=== PATIENT | male | born 1975 | race American Indian/Alaskan Native ===

== ENCOUNTER 2018-04-17 14:28 | Inpatient (IN) | payer OTHER ==
--- NOTE | 2018-04-17 14:39 | Emergency Department Report ---
ED Chest Pain HPI - General Chief Complaint: Chest Pain Stated Complaint: CHEST PAIN Time Seen by Provider: 04/17/18 14:34 Source: patient, EMS Mode of arrival: Stretcher Limitations: No Limitations - History of Present Illness Initial Comments: Mr yadav is a 42 year-old man with hx of CHF, HTN, IDDM who presents with chest pain. onset last night while at rest on the couch around midnight. Left chest, no radiation. No dyspnea. No relieving factors. Worse with breathing. Bilateral leg pain. chronic back pain. no cough. no fever. MD Complaint: chest pain -: Sudden Time: 00:00 Onset: during rest Pain Location: left chest Pain Radiation: none Severity: severe Quality: tightness, aching Consistency: constant Improves With: nothing Worsens With: inspiration Treatments Prior to Arrival: aspirin, nitroglycerin Aspirin use within the Past 7 Days: (1) Yes - Related Data Allergies Allergy/AdvReac Type Severity Reaction Status Date / Time No Known Allergies Allergy Unverified 04/17/18 14:43 Heart Score - HEART Score History: Moderately suspicious EKG: Non-specific Age: < 45 Risk factors: 1-2 risk factors Troponin: < normal limit HEART Score: 3 ED Review of Systems ROS: Stated complaint: CHEST PAIN Other details as noted in HPI Comment: All other systems reviewed and negative ED Physical Exam - General General appearance: alert, in no apparent distress - Head Head exam: Present: atraumatic, normocephalic - Eye Eye exam: Present: normal appearance, PERRL, EOMI - ENT ENT exam: Present: normal exam, mucous membranes moist - Neck Neck exam: Present: normal inspection - Respiratory Respiratory exam: Present: normal lung sounds bilaterally. Absent: respiratory distress, wheezes, rales, rhonchi - Cardiovascular Cardiovascular Exam: Present: regular rate, normal rhythm. Absent: systolic murmur, diastolic murmur, rubs, gallop - GI/Abdominal GI/Abdominal exam: Present: soft. Absent: distended, tenderness, guarding - Rectal Rectal exam: Present: deferred - Extremities Exam Extremities exam: Present: normal inspection. Absent: full ROM, tenderness - Back Exam Back exam: Present: normal inspection. Absent: tenderness, CVA tenderness (R), CVA tenderness (L) - Neurological Exam Neurological exam: Present: alert, oriented X3 - Psychiatric Psychiatric exam: Present: normal affect, normal mood - Skin Skin exam: Present: warm, dry, intact, normal color. Absent: rash ED Course Vital Signs 04/17/18 14:33 Temperature 98.3 F Pulse Rate 90 Blood Pressure 169/107 O2 Sat by Pulse 98 Oximetry ED Medical Decision Making - Lab Data Result diagrams: 04/17/18 14:43 04/17/18 16:27 Lab Results 04/17/18 04/17/18 04/17/18 Range/Units 14:37 14:43 14:43 WBC 7.9 (4.5-11.0) K/mm3 RBC 5.70 H (3.65-5.03) M/mm3 Hgb 14.9 (11.8-15.2) gm/dl Hct 46.6 H (35.5-45.6) % MCV 82 L (84-94) fl MCH 26 L (28-32) pg MCHC 32 (32-34) % RDW 13.6 (13.2-15.2) % Plt Count 164 (140-440) K/mm3 Lymph % (Auto) 13.8 (13.4-35.0) % Moody % (Auto) 4.3 (0.0-7.3) % Eos % (Auto) 0.9 (0.0-4.3) % Baso % (Auto) 0.8 (0.0-1.8) % Lymph # 1.1 L (1.2-5.4) K/mm3 Moody # 0.3 (0.0-0.8) K/mm3 Eos # 0.1 (0.0-0.4) K/mm3 Baso # 0.1 (0.0-0.1) K/mm3 Seg Neutrophils % 80.2 H (40.0-70.0) % Seg Neutrophils # 6.3 (1.8-7.7) K/mm3 PT 11.7 L (12.2-14.9) Sec. INR 0.82 L (0.87-1.13) D-Dimer 185.93 (0-234) ng/mlDDU Sodium (137-145) mmol/L Potassium (3.6-5.0) mmol/L Chloride (98-107) mmol/L Carbon Dioxide (22-30) mmol/L Anion Gap mmol/L BUN (9-20) mg/dL Creatinine (0.8-1.5) mg/dL Estimated GFR ml/min BUN/Creatinine Ratio % Glucose (75-100) mg/dL POC Glucose > 500 H (70-105) Ketones Quantitative (Negative) Calcium (8.4-10.2) mg/dL Total Bilirubin (0.1-1.2) mg/dL AST (5-40) units/L ALT (7-56) units/L Alkaline Phosphatase (35-129) units/L Troponin T (0.00-0.029) ng/mL NT-Pro-B Natriuret Pep (0-450) pg/mL Total Protein (6.3-8.2) g/dL Albumin (3.9-5) g/dL Albumin/Globulin Ratio % Triglycerides (2-149) mg/dL Cholesterol (50-199) mg/dL LDL Cholesterol Direct HDL Cholesterol (40-59) mg/dL Cholesterol/HDL Ratio % Urine Color (Yellow) Urine Turbidity (Clear) Urine pH (5.0-7.0) Ur Specific [place] (1.003-1.030) Urine Protein (Negative) mg/dL Urine Glucose (UA) (Negative) mg/dL Urine Ketones (Negative) mg/dL Urine Blood (Negative) Urine Nitrite (Negative) Urine Bilirubin (Negative) Urine Urobilinogen (<2.0) mg/dL Ur Leukocyte Esterase (Negative) Urine WBC (Auto) (0.0-6.0) /HPF Urine RBC (Auto) (0.0-6.0) /HPF Urine Opiates Screen Urine Methadone Screen Ur Barbiturates Screen Ur Phencyclidine Scrn Ur Amphetamines Screen U Benzodiazepines Scrn Urine Cocaine Screen U Marijuana (THC) Screen Drugs of Abuse Note 04/17/18 04/17/18 04/17/18 Range/Units 14:43 14:43 14:43 WBC (4.5-11.0) K/mm3 RBC (3.65-5.03) M/mm3 Hgb (11.8-15.2) gm/dl Hct (35.5-45.6) % MCV (84-94) fl MCH (28-32) pg MCHC (32-34) % RDW (13.2-15.2) % Plt Count (140-440) K/mm3 Lymph % (Auto) (13.4-35.0) % Moody % (Auto) (0.0-7.3) % Eos % (Auto) (0.0-4.3) % Baso % (Auto) (0.0-1.8) % Lymph # (1.2-5.4) K/mm3 Moody # (0.0-0.8) K/mm3 Eos # (0.0-0.4) K/mm3 Baso # (0.0-0.1) K/mm3 Seg Neutrophils % (40.0-70.0) % Seg Neutrophils # (1.8-7.7) K/mm3 PT (12.2-14.9) Sec. INR (0.87-1.13) D-Dimer (0-234) ng/mlDDU Sodium 122 L (137-145) mmol/L Potassium 5.2 H (3.6-5.0) mmol/L Chloride 83.5 L (98-107) mmol/L Carbon Dioxide 20 L (22-30) mmol/L Anion Gap 24 mmol/L BUN 37 H (9-20) mg/dL Creatinine 1.9 H (0.8-1.5) mg/dL Estimated GFR 39 ml/min BUN/Creatinine Ratio 19 % Glucose 801 H* (75-100) mg/dL POC Glucose (70-105) Ketones Quantitative Negative (Negative) Calcium 9.3 (8.4-10.2) mg/dL Total Bilirubin 0.40 (0.1-1.2) mg/dL AST 11 (5-40) units/L ALT 12 (7-56) units/L Alkaline Phosphatase 153 H (35-129) units/L Troponin T 0.036 H (0.00-0.029) ng/mL NT-Pro-B Natriuret Pep 269.0 (0-450) pg/mL Total Protein 6.9 (6.3-8.2) g/dL Albumin 3.6 L (3.9-5) g/dL Albumin/Globulin Ratio 1.1 % Triglycerides 503 H (2-149) mg/dL Cholesterol 264 H (50-199) mg/dL LDL Cholesterol Direct TNR HDL Cholesterol 54 (40-59) mg/dL Cholesterol/HDL Ratio 4.88 % Urine Color (Yellow) Urine Turbidity (Clear) Urine pH (5.0-7.0) Ur Specific [place] (1.003-1.030) Urine Protein (Negative) mg/dL Urine Glucose (UA) (Negative) mg/dL Urine Ketones (Negative) mg/dL Urine Blood (Negative) Urine Nitrite (Negative) Urine Bilirubin (Negative) Urine Urobilinogen (<2.0) mg/dL Ur Leukocyte Esterase (Negative) Urine WBC (Auto) (0.0-6.0) /HPF Urine RBC (Auto) (0.0-6.0) /HPF Urine Opiates Screen Urine Methadone Screen Ur Barbiturates Screen Ur Phencyclidine Scrn Ur Amphetamines Screen U Benzodiazepines Scrn Urine Cocaine Screen U Marijuana (THC) Screen Drugs of Abuse Note 04/17/18 04/17/18 04/17/18 Range/Units 15:10 15:10 16:27 WBC (4.5-11.0) K/mm3 RBC (3.65-5.03) M/mm3 Hgb (11.8-15.2) gm/dl Hct (35.5-45.6) % MCV (84-94) fl MCH (28-32) pg MCHC (32-34) % RDW (13.2-15.2) % Plt Count (140-440) K/mm3 Lymph % (Auto) (13.4-35.0) % Moody % (Auto) (0.0-7.3) % Eos % (Auto) (0.0-4.3) % Baso % (Auto) (0.0-1.8) % Lymph # (1.2-5.4) K/mm3 Moody # (0.0-0.8) K/mm3 Eos # (0.0-0.4) K/mm3 Baso # (0.0-0.1) K/mm3 Seg Neutrophils % (40.0-70.0) % Seg Neutrophils # (1.8-7.7) K/mm3 PT (12.2-14.9) Sec. INR (0.87-1.13) D-Dimer (0-234) ng/mlDDU Sodium (137-145) mmol/L Potassium (3.6-5.0) mmol/L Chloride (98-107) mmol/L Carbon Dioxide (22-30) mmol/L Anion Gap mmol/L BUN (9-20) mg/dL Creatinine (0.8-1.5) mg/dL Estimated GFR ml/min BUN/Creatinine Ratio % Glucose (75-100) mg/dL POC Glucose (70-105) Ketones Quantitative (Negative) Calcium (8.4-10.2) mg/dL Total Bilirubin (0.1-1.2) mg/dL AST (5-40) units/L ALT (7-56) units/L Alkaline Phosphatase (35-129) units/L Troponin T 0.035 H (0.00-0.029) ng/mL NT-Pro-B Natriuret Pep (0-450) pg/mL Total Protein (6.3-8.2) g/dL Albumin (3.9-5) g/dL Albumin/Globulin Ratio % Triglycerides (2-149) mg/dL Cholesterol (50-199) mg/dL LDL Cholesterol Direct HDL Cholesterol (40-59) mg/dL Cholesterol/HDL Ratio % Urine Color Straw (Yellow) Urine Turbidity Clear (Clear) Urine pH 6.0 (5.0-7.0) Ur Specific [place] 1.023 (1.003-1.030) Urine Protein 100 mg/dl (Negative) mg/dL Urine Glucose (UA) >=500 (Negative) mg/dL Urine Ketones Tr (Negative) mg/dL Urine Blood Neg (Negative) Urine Nitrite Neg (Negative) Urine Bilirubin Neg (Negative) Urine Urobilinogen < 2.0 (<2.0) mg/dL Ur Leukocyte Esterase Neg (Negative) Urine WBC (Auto) < 1.0 (0.0-6.0) /HPF Urine RBC (Auto) 3.0 (0.0-6.0) /HPF Urine Opiates Screen Presumptive negative Urine Methadone Screen Presumptive negative Ur Barbiturates Screen Presumptive negative Ur Phencyclidine Scrn Presumptive negative Ur Amphetamines Screen Presumptive negative U Benzodiazepines Scrn Presumptive negative Urine Cocaine Screen Presumptive negative U Marijuana (THC) Screen Presumptive negative Drugs of Abuse Note Disclamer 04/17/18 Range/Units 16:27 WBC (4.5-11.0) K/mm3 RBC (3.65-5.03) M/mm3 Hgb (11.8-15.2) gm/dl Hct (35.5-45.6) % MCV (84-94) fl MCH (28-32) pg MCHC (32-34) % RDW (13.2-15.2) % Plt Count (140-440) K/mm3 Lymph % (Auto) (13.4-35.0) % Moody % (Auto) (0.0-7.3) % Eos % (Auto) (0.0-4.3) % Baso % (Auto) (0.0-1.8) % Lymph # (1.2-5.4) K/mm3 Moody # (0.0-0.8) K/mm3 Eos # (0.0-0.4) K/mm3 Baso # (0.0-0.1) K/mm3 Seg Neutrophils % (40.0-70.0) % Seg Neutrophils # (1.8-7.7) K/mm3 PT (12.2-14.9) Sec. INR (0.87-1.13) D-Dimer (0-234) ng/mlDDU Sodium 126 L (137-145) mmol/L Potassium 5.0 (3.6-5.0) mmol/L Chloride 86.9 L (98-107) mmol/L Carbon Dioxide 20 L (22-30) mmol/L Anion Gap 24 mmol/L BUN 38 H (9-20) mg/dL Creatinine 1.9 H (0.8-1.5) mg/dL Estimated GFR 47 ml/min BUN/Creatinine Ratio 20 % Glucose 736 H* (75-100) mg/dL POC Glucose (70-105) Ketones Quantitative (Negative) Calcium 9.2 (8.4-10.2) mg/dL Total Bilirubin (0.1-1.2) mg/dL AST (5-40) units/L ALT (7-56) units/L Alkaline Phosphatase (35-129) units/L Troponin T (0.00-0.029) ng/mL NT-Pro-B Natriuret Pep (0-450) pg/mL Total Protein (6.3-8.2) g/dL Albumin (3.9-5) g/dL Albumin/Globulin Ratio % Triglycerides (2-149) mg/dL Cholesterol (50-199) mg/dL LDL Cholesterol Direct HDL Cholesterol (40-59) mg/dL Cholesterol/HDL Ratio % Urine Color (Yellow) Urine Turbidity (Clear) Urine pH (5.0-7.0) Ur Specific [place] (1.003-1.030) Urine Protein (Negative) mg/dL Urine Glucose (UA) (Negative) mg/dL Urine Ketones (Negative) mg/dL Urine Blood (Negative) Urine Nitrite (Negative) Urine Bilirubin (Negative) Urine Urobilinogen (<2.0) mg/dL Ur Leukocyte Esterase (Negative) Urine WBC (Auto) (0.0-6.0) /HPF Urine RBC (Auto) (0.0-6.0) /HPF Urine Opiates Screen Urine Methadone Screen Ur Barbiturates Screen Ur Phencyclidine Scrn Ur Amphetamines Screen U Benzodiazepines Scrn Urine Cocaine Screen U Marijuana (THC) Screen Drugs of Abuse Note - EKG Data 04/17/18 14:32 HR 94, sinus, normal axis, intervals wnl, deep Q waves in V1-V3, no ST changes concerning for acute ischemia - Radiology Data Radiology results: report reviewed, image reviewed HISTORY: Chest pain. COMPARISON: No prior studies are available for comparison. FINDINGS: Heart: Normal. Mediastinum/Vessels: Normal. Lungs/Pleural space: Normal. Bony thorax: No acute osseous abnormality. Other: IMPRESSION: No radiographic evidence of acute cardiopulmonary disease. - Medical Decision Making mr yadav is a 42 year-old man with hx of HTN, DM who presents via EMs with chest pain. left sided chest pain, no radiation since last night around 1230am. Not exertinoal. Pleuritic. Exam without reproducible chest pain. No back pain. Reports his blood sugar was normal at last check. POC glucose > 500. Suspect this is msk pain vs ACS vs PE vs PNA vs PTX vs HHS vs hyperglycemia vs DKA. Trop 0.03. EKG non-ischemic. CXR clear. Glucose 900 with mild acidosis, no ketosis. Giving 10u subq insulin and IVF. CBC wnl. Lytes with K 5.2, repeat normal. Repeat trop unchanged. Had asa with EMS. Had nitro x 2 without any response. Admit to medicine for hyperglycemia. Repeat 800. Critical care attestation.: If time is entered above; I have spent that time in minutes in the direct care of this critically ill patient, excluding procedure time. ED Disposition Clinical Impression: Hyperglycemia Chest pain Qualifiers: Chest pain type: unspecified Qualified Code(s): R07.9 - Chest pain, unspecified Disposition: 09 OP ADMIT IP TO THIS HOSP Is pt being admited?: Yes Does the pt Need Aspirin: No Condition: Stable Instructions: Chest Pain (ED) Referrals: PRIMARY CARE,MD [Primary Care Provider] - 3-5 Days
[2018-04-17 15:00] LABS: Basophils # (Auto) 0.1 K/mm3 (0.0-0.1); Basophils % (Auto) 0.8 % (0.0-1.8); Eosinophils # (Auto) 0.1 K/mm3 (0.0-0.4); Eosinophils % (Auto) 0.9 % (0.0-4.3); Hematocrit 46.6 % (35.5-45.6); Hemoglobin 14.9 gm/dl (11.8-15.2); Lymphocytes # (Auto) 1.1 K/mm3 (1.2-5.4); Lymphocytes % (Auto) 13.8 % (13.4-35.0); Mean Corpuscular HGB Conc 32 % (32-34); Mean Corpuscular Hemoglobin 26 pg (28-32); Mean Corpuscular Volume 82 fl (84-94); Monocytes # (Auto) 0.3 K/mm3 (0.0-0.8); Monocytes % (Auto) 4.3 % (0.0-7.3); Platelet Count 164 K/mm3 (140-440); Red Cell Distribution Width 13.6 % (13.2-15.2)
[2018-04-17 15:05] LABS: INR 0.82 (0.87-1.13)
[2018-04-17 15:11] LABS: Alanine Aminotransferase 12 units/L (7-56); Albumin 3.6 g/dL (3.9-5); BUN/Creatinine Ratio 19; Blood Urea Nitrogen 37 mg/dL (9-20); Calcium 9.3 mg/dL (8.4-10.2); Hemolysis Index 7
[2018-04-17] MEDS ORDERED: NACL 0.9% 1000 ML 1,000 ML IV ONE (15:15)
[2018-04-17] MEDS ORDERED: HumuLIN R SUB-Q ONE (15:15)
[2018-04-17 15:23] LABS: Chol/HDL Ratio 4.88 %; HDL Cholesterol 54 mg/dL (40-59); LDL Cholesterol,Direct TNR mg/dL (50-130)
[2018-04-17 15:42] LABS: Bilirubin,Urine NEG (Negative); Blood,Urine NEG (Negative); Color,Urine Straw (Yellow); Urobilinogen,Urine < 2.0 mg/dL (<2.0)
[2018-04-17 15:45] LABS: Amphetamine Screen,Urine PRESUMPTIVE NEGATIVE; Benzodiazepines Screen,Urine PRESUMPTIVE NEGATIVE; Cannabinoid Screen,Urine PRESUMPTIVE NEGATIVE; Cocaine Screen,Urine PRESUMPTIVE NEGATIVE; Methadone Screen,Urine PRESUMPTIVE NEGATIVE; Opiate Screen,Urine PRESUMPTIVE NEGATIVE
[2018-04-17 15:53] LABS: WBC,Urine < 1.0 /HPF (0.0-6.0)
--- NOTE | 2018-04-17 16:16 | XRay Report ---
FINAL REPORT PROCEDURE: XR CHEST ROUTINE 2V TECHNIQUE: PA and lateral chest radiographs were obtained. CPT 18864 HISTORY: Chest pain. COMPARISON: No prior studies are available for comparison. FINDINGS: Heart: Normal. Mediastinum/Vessels: Normal. Lungs/Pleural space: Normal. Bony thorax: No acute osseous abnormality. Other: IMPRESSION: No radiographic evidence of acute cardiopulmonary disease.
[2018-04-17 17:05] LABS: Calcium 9.2 mg/dL (8.4-10.2)
[2018-04-17] MEDS ORDERED: MORPHINE ONE (17:34)
[2018-04-17] MEDS ORDERED: MORPHINE IM ONE (17:40)
[2018-04-17] MEDS ORDERED: SODIUM CHLORIDE FLUSH SYRINGE 10 ML IV PRN (20:46)
[2018-04-17] MEDS ORDERED: ZOFRAN IV PRN (20:46)
--- NOTE | 2018-04-17 20:46 | History and Physical Report ---
History of Present Illness Date of examination: 04/17/18 Date of admission: 04/17/18 Chief complaint: CC Chest pain since Last night. History of present illness: History of Present Illness: 42 year-old Black male with hx of CHF, HTN and IDDM presents with chest pain. onset last night while at rest on the couch around midnight.No radiation.Dull in character.Intermittent in nature.Noexacerbating or relieving factors.No Sob or Diaphoresis or palpitations. Patient has not been taking Insulin regularly bcoz of financial reasons and lack of Insurance. IN ED his BG was in 800's.No Nausea or vomiting.Feels weak.Has polyuria polydipsia and polyphagia. No fever or chills Past History Past Medical History: diabetes, heart failure, hypertension Past Surgical History: No surgical history Social history: lives with family, full code Family history: diabetes, hypertension Medications and Allergies Allergies Allergy/AdvReac Type Severity Reaction Status Date / Time No Known Allergies Allergy Unverified 04/17/18 14:43 Home Medications Medication Instructions Recorded Confirmed Last Taken Type Insulin NPH/Regular [Novolin 70/30] 40 unit SUB-Q TID 04/17/18 04/17/18 Unknown History cloNIDine [Catapres] 0.2 mg PO BID 04/17/18 04/17/18 Unknown History metFORMIN [Glucophage] 500 mg PO BID 04/17/18 04/17/18 Unknown History Review of Systems All systems: negative Constitutional: no weight loss, no weight gain, no fever, no chills Ears, nose, mouth and throat: no mouth pain, no dysphagia, no hoarseness, no sore throat Cardiovascular: chest pain, no orthopnea, no palpitations, no rapid/irregular heart beat, no edema, no syncope, no lightheadedness, no shortness of breath Respiratory: no cough, no cough with sputum, no excessive sputum, no hemoptysis , no shortness of breath, no dyspnea on exertion Gastrointestinal: no abdominal pain, no nausea, no vomiting, no diarrhea, no constipation, no change in bowel habits, no hematemesis, no coffee ground emesis Genitourinary Male: no dysuria, no urinary frequency, no urinary hesitancy, no nocturia Rectal: no pain Musculoskeletal: no neck stiffness, no shooting arm pain, no arm numbness/ tingling, no low back pain Integumentary: no rash, no pruritis, no redness, no sores Neurological: no head injury, no transient paralysis, no paralysis, no weakness , no seizures, no syncope Psychiatric: no anxiety, no memory loss, no change in sleep habits, no sleep disturbances, no insomnia, no hypersomnia, no change in appetite, no change in libido Endocrine: no cold intolerance, no heat intolerance, no polyphagia, no excessive thirst, no polydipsia, no polyuria Hematologic/Lymphatic: no easy bruising, no easy bleeding Allergic/Immunologic: no urticaria, no allergic rhinitis, no wheezing Exam - Constitutional Vitals: Temp Pulse Resp BP Pulse Ox 98.4 F 90 20 177/114 98 04/17/18 19:15 04/17/18 19:15 04/17/18 19:15 04/17/18 19:15 04/17/18 19:15 General appearance: Present: no acute distress, well-nourished - EENT Eyes: Present: PERRL ENT: hearing intact, clear oral mucosa - Neck Neck: Present: supple, normal ROM - Respiratory Respiratory effort: normal Respiratory: bilateral: CTA - Cardiovascular Heart rate: 80 Rhythm: regular Heart Sounds: Present: S1 & S2. Absent: rub, click - Extremities Extremities: pulses symmetrical, No edema Peripheral Pulses: within normal limits - Abdominal General gastrointestinal: Present: soft, non-tender, non-distended, normal bowel sounds Male genitourinary: Present: normal - Rectal Rectal Exam: deferred - Integumentary Integumentary: Present: clear, warm, dry - Musculoskeletal Musculoskeletal: gait normal, strength equal bilaterally - Psychiatric Psychiatric: appropriate mood/affect, intact judgment & insight - Neurologic Neurologic: CNII-XII intact, moves all extremities - Allied Health Allied health notes reviewed: nursing, case management Results - Labs CBC & Chem 7: 04/17/18 14:43 04/18/18 04:46 Labs: Laboratory Last Values WBC 7.9 K/mm3 (4.5-11.0) 04/17/18 14:43 RBC 5.70 M/mm3 (3.65-5.03) H 04/17/18 14:43 Hgb 14.9 gm/dl (11.8-15.2) 04/17/18 14:43 Hct 46.6 % (35.5-45.6) H 04/17/18 14:43 MCV 82 fl (84-94) L 04/17/18 14:43 MCH 26 pg (28-32) L 04/17/18 14:43 MCHC 32 % (32-34) 04/17/18 14:43 RDW 13.6 % (13.2-15.2) 04/17/18 14:43 Plt Count 164 K/mm3 (140-440) 04/17/18 14:43 Lymph % (Auto) 13.8 % (13.4-35.0) 04/17/18 14:43 [place] % (Auto) 4.3 % (0.0-7.3) 04/17/18 14:43 Eos % (Auto) 0.9 % (0.0-4.3) 04/17/18 14:43 Baso % (Auto) 0.8 % (0.0-1.8) 04/17/18 14:43 Lymph # 1.1 K/mm3 (1.2-5.4) L 04/17/18 14:43 Brooks # 0.3 K/mm3 (0.0-0.8) 04/17/18 14:43 Eos # 0.1 K/mm3 (0.0-0.4) 04/17/18 14:43 Baso # 0.1 K/mm3 (0.0-0.1) 04/17/18 14:43 Seg Neutrophils % 80.2 % (40.0-70.0) H 04/17/18 14:43 Seg Neutrophils # 6.3 K/mm3 (1.8-7.7) 04/17/18 14:43 PT 11.7 Sec. (12.2-14.9) L 04/17/18 14:43 INR 0.82 (0.87-1.13) L 04/17/18 14:43 D-Dimer 185.93 ng/mlDDU (0-234) 04/17/18 14:43 Sodium 126 mmol/L (137-145) L 04/17/18 16:27 Potassium 5.0 mmol/L (3.6-5.0) 04/17/18 16:27 Chloride 86.9 mmol/L (98-107) L 04/17/18 16:27 Carbon Dioxide 20 mmol/L (22-30) L 04/17/18 16:27 Anion Gap 24 mmol/L 04/17/18 16:27 BUN 38 mg/dL (9-20) H 04/17/18 16:27 Creatinine 1.9 mg/dL (0.8-1.5) H 04/17/18 16:27 Estimated GFR 47 ml/min 04/17/18 16:27 BUN/Creatinine Ratio 20 % 04/17/18 16:27 Glucose 736 mg/dL (75-100) H* 04/17/18 16:27 POC Glucose > 500 (70-105) H 04/17/18 14:37 Ketones Quantitative Negative (Negative) 04/17/18 14:43 Calcium 9.2 mg/dL (8.4-10.2) 04/17/18 16:27 Total Bilirubin 0.40 mg/dL (0.1-1.2) 04/17/18 14:43 AST 11 units/L (5-40) 04/17/18 14:43 ALT 12 units/L (7-56) 04/17/18 14:43 Alkaline Phosphatase 153 units/L (35-129) H 04/17/18 14:43 Troponin T 0.035 ng/mL (0.00-0.029) H 04/17/18 16:27 NT-Pro-B Natriuret Pep 269.0 pg/mL (0-450) 04/17/18 14:43 Total Protein 6.9 g/dL (6.3-8.2) 04/17/18 14:43 Albumin 3.6 g/dL (3.9-5) L 04/17/18 14:43 Albumin/Globulin Ratio 1.1 % 04/17/18 14:43 Triglycerides 503 mg/dL (2-149) H 04/17/18 14:43 Cholesterol 264 mg/dL (50-199) H 04/17/18 14:43 LDL Cholesterol Direct TNR 04/17/18 14:43 HDL Cholesterol 54 mg/dL (40-59) 04/17/18 14:43 Cholesterol/HDL Ratio 4.88 % 04/17/18 14:43 Urine Color Straw (Yellow) 04/17/18 15:10 Urine Turbidity Clear (Clear) 04/17/18 15:10 Urine pH 6.0 (5.0-7.0) 04/17/18 15:10 Ur Specific [place] 1.023 (1.003-1.030) 04/17/18 15:10 Urine Protein 100 mg/dl mg/dL (Negative) 04/17/18 15:10 Urine Glucose (UA) >=500 mg/dL (Negative) 04/17/18 15:10 Urine Ketones Tr mg/dL (Negative) 04/17/18 15:10 Urine Blood Neg (Negative) 04/17/18 15:10 Urine Nitrite Neg (Negative) 04/17/18 15:10 Urine Bilirubin Neg (Negative) 04/17/18 15:10 Urine Urobilinogen < 2.0 mg/dL (<2.0) 04/17/18 15:10 Ur Leukocyte Esterase Neg (Negative) 04/17/18 15:10 Urine WBC (Auto) < 1.0 /HPF (0.0-6.0) 04/17/18 15:10 Urine RBC (Auto) 3.0 /HPF (0.0-6.0) 04/17/18 15:10 Urine Opiates Screen Presumptive negative 04/17/18 15:10 Urine Methadone Screen Presumptive negative 04/17/18 15:10 Ur Barbiturates Screen Presumptive negative 04/17/18 15:10 Ur Phencyclidine Scrn Presumptive negative 04/17/18 15:10 Ur Amphetamines Screen Presumptive negative 04/17/18 15:10 U Benzodiazepines Scrn Presumptive negative 04/17/18 15:10 Urine Cocaine Screen Presumptive negative 04/17/18 15:10 U Marijuana (THC) Screen Presumptive negative 04/17/18 15:10 Drugs of Abuse Note Disclamer 04/17/18 15:10 Short CBC 04/17/18 Range/Units 14:43 WBC 7.9 (4.5-11.0) K/mm3 Hgb 14.9 (11.8-15.2) gm/dl Hct 46.6 H (35.5-45.6) % Plt Count 164 (140-440) K/mm3 BMP 04/17/18 04/17/18 04/17/18 14:43 16:27 20:26 Sodium 122 L 126 L 131 L Potassium 5.2 H 5.0 4.6 Chloride 83.5 L 86.9 L 93.1 L Carbon Dioxide 20 L 20 L 19 L BUN 37 H 38 H 35 H Creatinine 1.9 H 1.9 H 1.8 H Glucose 801 H* 736 H* 512 H* Calcium 9.3 9.2 9.2 04/17/18 04/18/18 04/18/18 23:52 02:35 04:46 Sodium 137 138 136 L Potassium 3.8 3.7 3.8 Chloride 104.4 105.7 104.3 Carbon Dioxide 19 L 19 L 20 L BUN 32 H 30 H 28 H Creatinine 1.7 H 1.5 1.5 Glucose 217 H 166 H 185 H Calcium 9.3 9.0 9.0 Cardiac Enzymes 04/17/18 04/17/18 Range/Units 14:43 16:27 Troponin T 0.036 H 0.035 H (0.00-0.029) ng/mL Liver Function 04/17/18 Range/Units 14:43 Total Bilirubin 0.40 (0.1-1.2) mg/dL AST 11 (5-40) units/L ALT 12 (7-56) units/L Alkaline Phosphatase 153 H (35-129) units/L Albumin 3.6 L (3.9-5) g/dL Urine 04/17/18 Range/Units 15:10 Urine Color Straw (Yellow) Urine pH 6.0 (5.0-7.0) Ur Specific [place] 1.023 (1.003-1.030) Urine Protein 100 mg/dl (Negative) mg/dL Urine Glucose (UA) >=500 (Negative) mg/dL - Imaging and Cardiology EKG: report reviewed Chest x-ray: report reviewed (NAF) Assessment and Plan Assessment and plan: Critical care statement: The high probability of a clinically significant, sudden or life threatening deterioration of the [Pulmonary, cadiac, renal] system(s) required my full and direct attention, intervention and personal management. The aggregate critical care time was [35] minutes. This time is in addition to time spent performing reported procedures but includes the following: [x] Data Review and interpretation [x] Patient assessment and monitoring of vital signs [x] Documentation [x] Medication orders and management Advance Directives: Yes (Full code) VTE prophylaxis?: Chemical Plan of care discussed with patient/family: Yes - Patient Problems (1) Hyperosmolar non-ketotic state in patient with type 2 diabetes mellitus Current Visit: Yes Status: Acute Plan to address problem: IV insulin and DKA protocol initiated Patient counselled about taking insulin on a regular basis and to follow with [facility] Insulin dosage adjusted (2) SHERLY (acute kidney injury) Current Visit: Yes Status: Acute Plan to address problem: IV fluids for now (3) Chest pain Current Visit: Yes Status: Acute Qualifiers: Chest pain type: unspecified Qualified Code(s): R07.9 - Chest pain, unspecified Plan to address problem: Probably sec to Reflux Serial Troponins Lexiscan ordered for Thursday (4) Acute hyponatremia Current Visit: Yes Status: Acute Plan to address problem: Sec to High BG levels. Should correct with correction of BG (5) Acute hyperkalemia Current Visit: Yes Status: Acute Plan to address problem: Should correct with correction of BG levels (6) Hypertriglyceridemia Current Visit: Yes Status: Acute Plan to address problem: Add fenofibrate (7) HLD (hyperlipidemia) Current Visit: Yes Status: Chronic Qualifiers: Hyperlipidemia type: mixed hyperlipidemia Qualified Code(s): E78.2 - Mixed hyperlipidemia Plan to address problem: Statins added (8) DVT prophylaxis Current Visit: Yes Status: Acute Plan to address problem: On Lovenox GI prophylaxis--Famotidine added
[2018-04-17 20:47] LABS: Calcium 9.2 mg/dL (8.4-10.2)
[2018-04-17] MEDS ORDERED: D50W (25GM) Syringe IV PRN (20:49)
[2018-04-17] MEDS ORDERED: KCL 10MEQ/100ML 10 MEQ/100 ML BAG IV SCH ×2 (21:00)
[2018-04-17] MEDS ORDERED: KCL 10MEQ/100ML 10 MEQ/100 ML BAG IV PRN ×2 (21:04→22:00)
[2018-04-17] MEDS ORDERED: NACL 0.9% 1000 ML 1,000 ML ONE (21:16)
[2018-04-17] MEDS ORDERED: HumuLIN R 100 UNITS in NACL 0.9% 99 ML IV SCH (21:30)
[2018-04-17] MEDS: NACL 0.9% 1000 ML 1,000 ML IV SCH (21:54)
[2018-04-17] MEDS ORDERED: APRESOLINE ONE (22:08)
[2018-04-17] MEDS: APRESOLINE IV PRN (23:11)
[2018-04-18] MEDS ORDERED: D5/0.45NS 1,000 ML IV ONE (00:18)
[2018-04-18 00:40] LABS: Calcium 9.3 mg/dL (8.4-10.2)
[2018-04-18] MEDS ORDERED: D5/0.45NS 1,000 ML IV SCH (01:00)
[2018-04-18 03:08] LABS: BUN/Creatinine Ratio 20; Blood Urea Nitrogen 30 mg/dL (9-20); Hemolysis Index 20
[2018-04-18] MEDS ORDERED: D5W/0.45% NACL/KCL 20 MEQ 20 MEQ/1,000 ML BAG IV SCH (04:00)
[2018-04-18 05:23] LABS: BUN/Creatinine Ratio 19; Blood Urea Nitrogen 28 mg/dL (9-20); Hemolysis Index 18
[2018-04-18] MEDS: APRESOLINE IV PRN ×2 (06:37→18:10)
[2018-04-18] MEDS: SODIUM CHLORIDE FLUSH SYRINGE 10 ML IV SCH ×3 (06:41→22:17)
[2018-04-18] MEDS ORDERED: LEXISCAN IV ONE (08:09)
[2018-04-18] MEDS: TYLENOL PO PRN (08:28)
--- NOTE | 2018-04-18 08:54 | Progress Note ---
Assessment and Plan Assessment and plan: 42 year-old Black male with hx of CHF, HTN and IDDM presents with chest pain. onset last night while at rest on the couch around midnight.No radiation.Dull in character.Intermittent in nature.Noexacerbating or relieving factors.No Sob or Diaphoresis or palpitations. Patient has not been taking Insulin regularly bcoz of financial reasons and lack of Insurance. IN ED his BG was in 800's.No Nausea or vomiting.Feels weak.Has polyuria polydipsia and polyphagia. Past History Past Medical History: diabetes, heart failure, hypertension Critical care statement: The high probability of a clinically significant, sudden or life threatening deterioration of the [Pulmonary, cadiac, renal] system(s) required my full and direct attention, intervention and personal management. The aggregate critical care time was [35] minutes. This time is in addition to time spent performing reported procedures but includes the following: [x] Data Review and interpretation [x] Patient assessment and monitoring of vital signs [x] Documentation [x] Medication orders and management Advance Directives: Yes (Full code) VTE prophylaxis?: Chemical Plan of care discussed with patient/family: Yes - Patient Problems Hyperosmolar non-ketotic state in patient with type 2 diabetes mellitus/DKA wiill transition off insulin drip to sq insulins SHERLY (acute kidney injury)/vasomotor nephropathy IV fluids Chest pain Lexiscan ordered for Thursday Acute hyponatremia improving with IVF Acute hyperkalemia improved with insulin Hypertriglyceridemia Lipid panel was unlikely to be accurate since he was acidotic, will need to be repeated upon dc HLD (hyperlipidemia) Statins added History Interval history: Review of systems Constitutional: No fevers, no malaise, no joint pains CVS: No chest pain, no orthopnea, no dyspnea on exertion, no pedal edema GI: No abdominal pain, no diarrhea, no vomiting, no constipation Respiratory: No shortness of breath, no wheezing, no coughing Hospitalist Physical - Physical exam Narrative exam: General.: Appears well, no distress, nontoxic HEENT: Moist mucous membranes, extraocular muscles intact, no lymphadenopathy Neck: supple Cardiac: S1-S2 heard Lungs: clear to auscultation bilaterally Abdomen: soft , nontender, nondistended, bowel sounds positive Extremities: no edema clubbing or cyanosis Skin: no rash or lesions Neurologic: no gross focal deficits Psych: appropriate behavior, appropriate mood, corporative, judgment intact - Constitutional Vitals: Temp Pulse Resp BP Pulse Ox 98.2 F 78 14 163/96 97 04/18/18 07:44 04/18/18 08:00 04/18/18 08:00 04/18/18 08:00 04/18/18 08:00 General appearance: Present: no acute distress, well-nourished Results - Labs CBC & Chem 7: 04/17/18 14:43 04/18/18 19:57 Labs: Laboratory Last Values WBC 7.9 K/mm3 (4.5-11.0) 04/17/18 14:43 RBC 5.70 M/mm3 (3.65-5.03) H 04/17/18 14:43 Hgb 14.9 gm/dl (11.8-15.2) 04/17/18 14:43 Hct 46.6 % (35.5-45.6) H 04/17/18 14:43 MCV 82 fl (84-94) L 04/17/18 14:43 MCH 26 pg (28-32) L 04/17/18 14:43 MCHC 32 % (32-34) 04/17/18 14:43 RDW 13.6 % (13.2-15.2) 04/17/18 14:43 Plt Count 164 K/mm3 (140-440) 04/17/18 14:43 Lymph % (Auto) 13.8 % (13.4-35.0) 04/17/18 14:43 [place] % (Auto) 4.3 % (0.0-7.3) 04/17/18 14:43 Eos % (Auto) 0.9 % (0.0-4.3) 04/17/18 14:43 Baso % (Auto) 0.8 % (0.0-1.8) 04/17/18 14:43 Lymph # 1.1 K/mm3 (1.2-5.4) L 04/17/18 14:43 [place] # 0.3 K/mm3 (0.0-0.8) 04/17/18 14:43 Eos # 0.1 K/mm3 (0.0-0.4) 04/17/18 14:43 Baso # 0.1 K/mm3 (0.0-0.1) 04/17/18 14:43 Seg Neutrophils % 80.2 % (40.0-70.0) H 04/17/18 14:43 Seg Neutrophils # 6.3 K/mm3 (1.8-7.7) 04/17/18 14:43 PT 11.7 Sec. (12.2-14.9) L 04/17/18 14:43 INR 0.82 (0.87-1.13) L 04/17/18 14:43 D-Dimer 185.93 ng/mlDDU (0-234) 04/17/18 14:43 Sodium 136 mmol/L (137-145) L 04/18/18 04:46 Potassium 3.8 mmol/L (3.6-5.0) 04/18/18 04:46 Chloride 104.3 mmol/L (98-107) 04/18/18 04:46 Carbon Dioxide 20 mmol/L (22-30) L 04/18/18 04:46 Anion Gap 16 mmol/L 04/18/18 04:46 BUN 28 mg/dL (9-20) H 04/18/18 04:46 Creatinine 1.5 mg/dL (0.8-1.5) 04/18/18 04:46 Estimated GFR > 60 ml/min 04/18/18 04:46 BUN/Creatinine Ratio 19 % 04/18/18 04:46 Glucose 185 mg/dL (75-100) H 04/18/18 04:46 POC Glucose 171 (70-105) H 04/18/18 08:29 Hemoglobin A1c > 20.0 % (4-6) H 04/17/18 21:04 Ketones Quantitative Negative (Negative) 04/17/18 14:43 Calcium 9.0 mg/dL (8.4-10.2) 04/18/18 04:46 Phosphorus 4.40 mg/dL (2.5-4.5) 04/17/18 21:04 Magnesium 2.20 mg/dL (1.7-2.3) 04/17/18 21:04 Total Bilirubin 0.40 mg/dL (0.1-1.2) 04/17/18 14:43 AST 11 units/L (5-40) 04/17/18 14:43 ALT 12 units/L (7-56) 04/17/18 14:43 Alkaline Phosphatase 153 units/L (35-129) H 04/17/18 14:43 Troponin T 0.035 ng/mL (0.00-0.029) H 04/17/18 16:27 NT-Pro-B Natriuret Pep 269.0 pg/mL (0-450) 04/17/18 14:43 Total Protein 6.9 g/dL (6.3-8.2) 04/17/18 14:43 Albumin 3.6 g/dL (3.9-5) L 04/17/18 14:43 Albumin/Globulin Ratio 1.1 % 04/17/18 14:43 Triglycerides 503 mg/dL (2-149) H 04/17/18 14:43 Cholesterol 264 mg/dL (50-199) H 04/17/18 14:43 LDL Cholesterol Direct TNR 04/17/18 14:43 HDL Cholesterol 54 mg/dL (40-59) 04/17/18 14:43 Cholesterol/HDL Ratio 4.88 % 04/17/18 14:43 Urine Color Straw (Yellow) 04/17/18 15:10 Urine Turbidity Clear (Clear) 04/17/18 15:10 Urine pH 6.0 (5.0-7.0) 04/17/18 15:10 Ur Specific [place] 1.023 (1.003-1.030) 04/17/18 15:10 Urine Protein 100 mg/dl mg/dL (Negative) 04/17/18 15:10 Urine Glucose (UA) >=500 mg/dL (Negative) 04/17/18 15:10 Urine Ketones Tr mg/dL (Negative) 04/17/18 15:10 Urine Blood Neg (Negative) 04/17/18 15:10 Urine Nitrite Neg (Negative) 04/17/18 15:10 Urine Bilirubin Neg (Negative) 04/17/18 15:10 Urine Urobilinogen < 2.0 mg/dL (<2.0) 04/17/18 15:10 Ur Leukocyte Esterase Neg (Negative) 04/17/18 15:10 Urine WBC (Auto) < 1.0 /HPF (0.0-6.0) 04/17/18 15:10 Urine RBC (Auto) 3.0 /HPF (0.0-6.0) 04/17/18 15:10 Urine Opiates Screen Presumptive negative 04/17/18 15:10 Urine Methadone Screen Presumptive negative 04/17/18 15:10 Ur Barbiturates Screen Presumptive negative 04/17/18 15:10 Ur Phencyclidine Scrn Presumptive negative 04/17/18 15:10 Ur Amphetamines Screen Presumptive negative 04/17/18 15:10 U Benzodiazepines Scrn Presumptive negative 04/17/18 15:10 Urine Cocaine Screen Presumptive negative 04/17/18 15:10 U Marijuana (THC) Screen Presumptive negative 04/17/18 15:10 Drugs of Abuse Note Disclamer 04/17/18 15:10
[2018-04-18] MEDS: CATAPRES PO SCH ×2 (09:34→22:17)
[2018-04-18] MEDS: TRICOR PO SCH (09:34)
[2018-04-18] MEDS: LOVENOX SUB-Q SCH (09:35)
[2018-04-18] MEDS: HumuLIN R SUB-Q SCH ×3 (12:51→22:17)
[2018-04-18 13:49] LABS: BUN/Creatinine Ratio 15; Blood Urea Nitrogen 23 mg/dL (9-20); Calcium 8.8 mg/dL (8.4-10.2); Hemolysis Index 4
[2018-04-18] MEDS: NACL 0.9% 1000 ML 1,000 ML IV SCH (15:50)
[2018-04-18 20:38] LABS: Calcium 8.9 mg/dL (8.4-10.2)
[2018-04-19] MEDS: NACL 0.9% 1000 ML 1,000 ML IV SCH ×2 (00:08→06:26)
--- NOTE | 2018-04-19 07:34 | Progress Note ---
Assessment and Plan Assessment and plan: 42 year-old Black male with hx of CHF, HTN and IDDM presents with chest pain. onset last night while at rest on the couch around midnight.No radiation.Dull in character.Intermittent in nature.Noexacerbating or relieving factors.No Sob or Diaphoresis or palpitations. Patient has not been taking Insulin regularly bcoz of financial reasons and lack of Insurance. IN ED his BG was in 800's.No Nausea or vomiting.Feels weak.Has polyuria polydipsia and polyphagia. Past History Past Medical History: diabetes, heart failure, hypertension Hyperosmolar non-ketotic state in patient with type 2 diabetes mellitus/DKA wiill transition off insulin drip to sq insulins SHERLY (acute kidney injury)/vasomotor nephropathy IV fluids, has improved, Chest pain- due to irritation from vomiting Lexiscan mpi negative, no further workup indicated Acute hyponatremia improving with IVF Acute hyperkalemia improved with insulin Hypertriglyceridemia Lipid panel was unlikely to be accurate since he was acidotic, will need to be repeated upon dc HLD (hyperlipidemia) Statins added History Interval history: Review of systems Constitutional: No fevers, no malaise, no joint pains CVS: No chest pain, no orthopnea, no dyspnea on exertion, no pedal edema GI: No abdominal pain, no diarrhea, no vomiting, no constipation Respiratory: No shortness of breath, no wheezing, no coughing Hospitalist Physical - Physical exam Narrative exam: General.: Appears well, no distress, nontoxic HEENT: Moist mucous membranes, extraocular muscles intact, no lymphadenopathy Neck: supple Cardiac: S1-S2 heard Lungs: clear to auscultation bilaterally Abdomen: soft , nontender, nondistended, bowel sounds positive Extremities: no edema clubbing or cyanosis Skin: no rash or lesions Neurologic: no gross focal deficits Psych: appropriate behavior, appropriate mood, corporative, judgment intact - Constitutional Vitals: Temp Pulse Resp BP Pulse Ox 98.7 F 90 14 170/111 97 04/18/18 12:00 04/18/18 22:17 04/18/18 14:40 04/18/18 22:17 04/18/18 12:10 General appearance: Present: no acute distress, well-nourished Results - Labs CBC & Chem 7: 04/17/18 14:43 04/18/18 19:57 Labs: Laboratory Last Values WBC 7.9 K/mm3 (4.5-11.0) 04/17/18 14:43 RBC 5.70 M/mm3 (3.65-5.03) H 04/17/18 14:43 Hgb 14.9 gm/dl (11.8-15.2) 04/17/18 14:43 Hct 46.6 % (35.5-45.6) H 04/17/18 14:43 MCV 82 fl (84-94) L 04/17/18 14:43 MCH 26 pg (28-32) L 04/17/18 14:43 MCHC 32 % (32-34) 04/17/18 14:43 RDW 13.6 % (13.2-15.2) 04/17/18 14:43 Plt Count 164 K/mm3 (140-440) 04/17/18 14:43 Lymph % (Auto) 13.8 % (13.4-35.0) 04/17/18 14:43 [place] % (Auto) 4.3 % (0.0-7.3) 04/17/18 14:43 Eos % (Auto) 0.9 % (0.0-4.3) 04/17/18 14:43 Baso % (Auto) 0.8 % (0.0-1.8) 04/17/18 14:43 Lymph # 1.1 K/mm3 (1.2-5.4) L 04/17/18 14:43 [place] # 0.3 K/mm3 (0.0-0.8) 04/17/18 14:43 Eos # 0.1 K/mm3 (0.0-0.4) 04/17/18 14:43 Baso # 0.1 K/mm3 (0.0-0.1) 04/17/18 14:43 Seg Neutrophils % 80.2 % (40.0-70.0) H 04/17/18 14:43 Seg Neutrophils # 6.3 K/mm3 (1.8-7.7) 04/17/18 14:43 PT 11.7 Sec. (12.2-14.9) L 04/17/18 14:43 INR 0.82 (0.87-1.13) L 04/17/18 14:43 D-Dimer 185.93 ng/mlDDU (0-234) 04/17/18 14:43 Sodium 132 mmol/L (137-145) L 04/18/18 19:57 Potassium 4.0 mmol/L (3.6-5.0) 04/18/18 19:57 Chloride 101.3 mmol/L (98-107) 04/18/18 19:57 Carbon Dioxide 18 mmol/L (22-30) L 04/18/18 19:57 Anion Gap 17 mmol/L 04/18/18 19:57 BUN 24 mg/dL (9-20) H 04/18/18 19:57 Creatinine 1.6 mg/dL (0.8-1.5) H 04/18/18 19:57 Estimated GFR 57 ml/min 04/18/18 19:57 BUN/Creatinine Ratio 15 % 04/18/18 19:57 Glucose 364 mg/dL (75-100) H 04/18/18 19:57 POC Glucose 271 (70-105) H 04/18/18 21:31 Hemoglobin A1c > 20.0 % (4-6) H 04/17/18 21:04 Ketones Quantitative Negative (Negative) 04/17/18 14:43 Calcium 8.9 mg/dL (8.4-10.2) 04/18/18 19:57 Phosphorus 4.40 mg/dL (2.5-4.5) 04/17/18 21:04 Magnesium 2.20 mg/dL (1.7-2.3) 04/17/18 21:04 Total Bilirubin 0.40 mg/dL (0.1-1.2) 04/17/18 14:43 AST 11 units/L (5-40) 04/17/18 14:43 ALT 12 units/L (7-56) 04/17/18 14:43 Alkaline Phosphatase 153 units/L (35-129) H 04/17/18 14:43 Troponin T 0.041 ng/mL (0.00-0.029) H 04/18/18 12:55 NT-Pro-B Natriuret Pep 269.0 pg/mL (0-450) 04/17/18 14:43 Total Protein 6.9 g/dL (6.3-8.2) 04/17/18 14:43 Albumin 3.6 g/dL (3.9-5) L 04/17/18 14:43 Albumin/Globulin Ratio 1.1 % 04/17/18 14:43 Triglycerides 503 mg/dL (2-149) H 04/17/18 14:43 Cholesterol 264 mg/dL (50-199) H 04/17/18 14:43 LDL Cholesterol Direct TNR 04/17/18 14:43 HDL Cholesterol 54 mg/dL (40-59) 04/17/18 14:43 Cholesterol/HDL Ratio 4.88 % 04/17/18 14:43 Urine Color Straw (Yellow) 04/17/18 15:10 Urine Turbidity Clear (Clear) 04/17/18 15:10 Urine pH 6.0 (5.0-7.0) 04/17/18 15:10 Ur Specific [place] 1.023 (1.003-1.030) 04/17/18 15:10 Urine Protein 100 mg/dl mg/dL (Negative) 04/17/18 15:10 Urine Glucose (UA) >=500 mg/dL (Negative) 04/17/18 15:10 Urine Ketones Tr mg/dL (Negative) 04/17/18 15:10 Urine Blood Neg (Negative) 04/17/18 15:10 Urine Nitrite Neg (Negative) 04/17/18 15:10 Urine Bilirubin Neg (Negative) 04/17/18 15:10 Urine Urobilinogen < 2.0 mg/dL (<2.0) 04/17/18 15:10 Ur Leukocyte Esterase Neg (Negative) 04/17/18 15:10 Urine WBC (Auto) < 1.0 /HPF (0.0-6.0) 04/17/18 15:10 Urine RBC (Auto) 3.0 /HPF (0.0-6.0) 04/17/18 15:10 Urine Opiates Screen Presumptive negative 04/17/18 15:10 Urine Methadone Screen Presumptive negative 04/17/18 15:10 Ur Barbiturates Screen Presumptive negative 04/17/18 15:10 Ur Phencyclidine Scrn Presumptive negative 04/17/18 15:10 Ur Amphetamines Screen Presumptive negative 04/17/18 15:10 U Benzodiazepines Scrn Presumptive negative 04/17/18 15:10 Urine Cocaine Screen Presumptive negative 04/17/18 15:10 U Marijuana (THC) Screen Presumptive negative 04/17/18 15:10 Drugs of Abuse Note Disclamer 04/17/18 15:10
[2018-04-19] MEDS: HumuLIN R SUB-Q SCH ×4 (08:17→21:53)
[2018-04-19] MEDS ORDERED: LEXISCAN IV ONE ×2 (09:41→09:45)
[2018-04-19] MEDS: TYLENOL PO PRN (11:25)
[2018-04-19] MEDS: TRICOR PO SCH (11:25)
[2018-04-19] MEDS: CATAPRES PO SCH ×2 (11:26→21:55)
[2018-04-19] MEDS: LOVENOX SUB-Q SCH (11:26)
[2018-04-19] MEDS: SODIUM CHLORIDE FLUSH SYRINGE 10 ML IV SCH (11:49)
[2018-04-19] MEDS: PROCARDIA XL PO SCH (12:50)
[2018-04-19] MEDS: APRESOLINE IV PRN (16:51)
[2018-04-20] MEDS: PROCARDIA XL PO SCH ×2 (08:14→09:52)
[2018-04-20] MEDS: SODIUM CHLORIDE FLUSH SYRINGE 10 ML IV SCH ×2 (08:14→11:33)
[2018-04-20] MEDS: HumuLIN R SUB-Q SCH ×3 (08:15→17:30)
[2018-04-20] MEDS: LOVENOX SUB-Q SCH (09:52)
[2018-04-20] MEDS: CATAPRES PO SCH (09:52)
--- NOTE | 2018-04-20 15:32 | Discharge Summary ---
Providers - Providers Date of Admission: 04/17/18 20:46 Attending physician: SAEED HURD MD 04/17/18 20:49 Consult to Dietitian/Nutrition [CONS] Routine Physician Instructions: Reason For Exam: DKA Reason for Consult: Nutrition Recommendations Reason for Consult: Diet education Primary care physician: ASSOCIATE PROFESSOR OF MATHEMATICS Hospitalization Condition: Stable Hospital course: 42 year-old Black male with hx of CHF, HTN and IDDM presents with chest pain. Patient has not been taking Insulin regularly because of financial reasons and lack of Insurance.IN ED his BG was in 800's. he was c/o weakness, polyuria , polydipsia and polyphagia. -He admitted to ICU, rx with insulin drip and IVF -He was counseled on improved adherence with his insulins, and provided resources -His renal function improved with IVF, and his electrolytes normalized with IVF and Insulin gtt -he had MPI which was negative -Lipid panel was unlikely to be accurate since he was acidotic, will need to be repeated upon dc, he was started on statin for HLD and elevated TAG Diagnosis Hyperosmolar non-ketotic state in patient with type 2 diabetes mellitus/DKA SHERLY (acute kidney injury)/vasomotor nephropathy Chest pain- due to htn urgency Htn urgency Acute hyponatremia Acute hyperkalemia Hypertriglyceridemia HLD (hyperlipidemia) Disposition: DC-01 TO HOME OR SELFCARE Time spent for discharge: 33 minutes Core Measure Documentation - Palliative Care Palliative Care/ Comfort Measures: Not Applicable - Core Measures Any of the following diagnoses?: none Exam - Constitutional Vitals: Temp Pulse Resp BP Pulse Ox 98.1 F 79 16 149/103 98 04/20/18 11:45 04/20/18 11:45 04/20/18 11:45 04/20/18 11:45 04/20/18 11:45 General appearance: Present: no acute distress, well-nourished - EENT Eyes: Present: PERRL ENT: hearing intact, clear oral mucosa - Neck Neck: Present: supple, normal ROM - Respiratory Respiratory effort: normal Respiratory: bilateral: CTA - Cardiovascular Heart Sounds: Present: S1 & S2. Absent: rub, click - Extremities Extremities: pulses symmetrical, No edema Peripheral Pulses: within normal limits - Abdominal General gastrointestinal: Present: soft, non-tender, non-distended, normal bowel sounds Male genitourinary: Present: normal - Integumentary Integumentary: Present: clear, warm, dry - Musculoskeletal Musculoskeletal: gait normal, strength equal bilaterally - Psychiatric Psychiatric: appropriate mood/affect, intact judgment & insight - Neurologic Neurologic: CNII-XII intact, moves all extremities Plan Follow up with: PRIMARY CARE,MD [Primary Care Provider] - 3-5 Days Prescriptions: Pravastatin [Pravachol] 20 mg PO QHS #30 tablet cloNIDine [Catapres] 0.2 mg PO BID #60 tablet Insulin NPH/Regular [NovoLIN 70/30] 50 unit SUB-Q AC #3 vial NIFEdipine XL [Procardia Xl] 60 mg PO Q12HR #60 tablet
[2018-04-20 17:29] VITALS: BP 154/91
== END 2018-04-20 18:20 | disposition home or self-care (01) | DRG 682 ==
LOC: ED 14:28 → CC1 20:46 → 3A 04-18 15:35
PROVIDERS: ADMIT Internal Medicine; ATTEND Internal Medicine
DX: N17.0 Acute kidney failure with tubular necrosis (principal); E11.10 Type 2 diabetes mellitus with ketoacidosis without coma; E87.1 Hypo-osmolality and hyponatremia; I16.0 Hypertensive urgency; E87.5 Hyperkalemia; E78.1 Pure hyperglyceridemia; E78.5 Hyperlipidemia, unspecified; I11.0 Hypertensive heart disease with heart failure; G89.29 Other chronic pain; M54.9 Dorsalgia, unspecified; I50.9 Heart failure, unspecified; E11.65 Type 2 diabetes mellitus with hyperglycemia; Z83.3 Family history of diabetes mellitus; Z79.4 Long term (current) use of insulin; Z82.49 Family history of ischemic heart disease and other diseases of the circulatory system; Z71.89 Other specified counseling
CPT/HCPCS: 36415; 71046; 78452; 80048; 80053; 80061; 80307; 81001; 82010; 82962; 83036; 83735; 83880; 84100; 84484; 85025; 85379; 85610; 93005; 93010; 93017; 96360; 96361; 96372; A9270-GY; A9502; J0360; J1650; J1815; J2270; J2785; J7030

== ENCOUNTER 2018-12-06 20:48 | Emergency (ER) | payer MEDICARE ==
[2018-12-06 23:00] LABS: Basophils # (Auto) 0.1 K/mm3 (0.0-0.1); Basophils % (Auto) 0.6 % (0.0-1.8); Eosinophils # (Auto) 0.1 K/mm3 (0.0-0.4); Eosinophils % (Auto) 1.4 % (0.0-4.3); Hematocrit 43.5 % (35.5-45.6); Lymphocytes # (Auto) 1.4 K/mm3 (1.2-5.4); Lymphocytes % (Auto) 15.8 % (13.4-35.0); Mean Corpuscular HGB Conc 32 % (32-34); Mean Corpuscular Volume 81 fl (84-94); Monocytes # (Auto) 0.6 K/mm3 (0.0-0.8); Monocytes % (Auto) 6.8 % (0.0-7.3); Platelet Count 246 K/mm3 (140-440); Red Blood Count 5.39 M/mm3 (3.65-5.03); Red Cell Distribution Width 14.7 % (13.2-15.2)
[2018-12-06 23:10] LABS: INR 0.87 (0.87-1.13)
[2018-12-06 23:11] LABS: Partial Thromboplastin Time 30.6 Sec. (24.2-36.6)
--- NOTE | 2018-12-06 23:13 | XRay Report ---
FINAL REPORT EXAM: XR CHEST ROUTINE 2V HISTORY: Chest pain TECHNIQUE: PA and lateral views of the chest Comparison: Chest x-ray dated April 17, 2018 FINDINGS: There appears to be small areas of increased density in the left lung base which may represent a patc hy pulmonary infiltrate. There is no evidence of pneumothorax or pleural fluid collection. The cardiomediastinal silhouette is normal in appearance. The bony structures are unremarkable. IMPRESSION: 1. Possible small patchy pulmonary consolidation in the left lung base. Differential diagnosis includ es artifact created by overlapping structures.
[2018-12-06 23:19] LABS: Calcium 9.3 mg/dL (8.4-10.2)
[2018-12-07] MEDS ORDERED: NITROSTAT SL PRN (01:41)
[2018-12-07] MEDS ORDERED: NACL 0.9% 1000 ML 1,000 ML IV ONE (01:41)
[2018-12-07] MEDS ORDERED: ULTRAM PO ONE (01:41)
[2018-12-07] MEDS ORDERED: TYLENOL PO ONE (01:41)
[2018-12-07] MEDS ORDERED: ASPIRIN PO ONE (01:42)
[2018-12-07] MEDS ORDERED: HumuLIN R IV ONE (01:43)
--- NOTE | 2018-12-07 02:51 | Emergency Department Report ---
ED General Adult HPI - General Chief complaint: Chest Pain Stated complaint: CHEST PAIN/KINNEY/BODY PAIN Time Seen by Provider: 12/07/18 01:40 Source: patient Mode of arrival: Ambulatory Limitations: No Limitations - History of Present Illness Initial comments: Patient is a 43-year-old [place] male with past medical history of hypertension diabetes who is here complaining of chest pain. Patient states that the pain started earlier yesterday morning and he states no melenic his chest pain lasts for up to 3 minutes at a time but is been persistent today. Patient states is sharp and heavy pain. Associated shortness of breath. Patient states that he is also noticed some bilateral swelling to his legs. Patient also had a nosebleed earlier today. Patient's denies nausea vomiting fevers chills cough cold or congestion. Patient does state that he has had some mild loose stools. Patient was admitted last year for chest pain. Had a stress test that was within normal limits. Patient has not had a cardiac cath has not had any additional follow up with cardiology. Severity scale (0 -10): 7 - Related Data Home Medications Medication Instructions Recorded Confirmed Last Taken Amlodipine Besylate [Norvasc] 10 mg PO DAILY 12/06/18 12/06/18 Unknown Furosemide [Lasix TAB] 40 mg PO QDAY 12/06/18 12/06/18 Unknown Gabapentin [Neurontin] 300 mg PO Q8HR 12/06/18 12/06/18 Unknown hydrALAZINE [Apresoline] 50 mg PO Q8HR 12/06/18 12/06/18 Unknown Previous Rx's Medication Instructions Recorded Last Taken Type Insulin NPH/Regular [NovoLIN 70/30] 50 unit SUB-Q AC #3 vial 04/20/18 Unknown Rx Pravastatin [Pravachol] 20 mg PO QHS #30 tablet 04/20/18 Unknown Rx cloNIDine [Catapres] 0.2 mg PO BID #60 tablet 04/20/18 Unknown Rx traMADol [Ultram] 50 mg PO Q6HR PRN #20 tablet 09/16/18 Unknown Rx traMADol [Ultram] 50 mg PO Q6HR PRN #10 tablet 12/07/18 Unknown Rx Allergies Allergy/AdvReac Type Severity Reaction Status Date / Time No Known Allergies Allergy Verified 10/04/18 13:07 ED Review of Systems ROS: Stated complaint: CHEST PAIN/KINNEY/BODY PAIN Other details as noted in HPI Comment: All other systems reviewed and negative ED Past Medical Hx - Past Medical History Previous Medical History?: Yes Hx Hypertension: Yes Hx Congestive Heart Failure: Yes Hx Diabetes: Yes Additional medical history: Pneumonia in 2016 with two chest tubes - Surgical History Past Surgical History?: Yes Additional Surgical History: spinal mennigitis, Chest tubes x 2 with pneumonia 2016 - Social History Smoking Status: Never Smoker - Medications Home Medications: Home Medications Medication Instructions Recorded Confirmed Last Taken Type Insulin NPH/Regular [NovoLIN 70/30] 50 unit SUB-Q AC #3 vial 04/20/18 12/06/18 Unknown Rx Pravastatin [Pravachol] 20 mg PO QHS #30 tablet 04/20/18 12/06/18 Unknown Rx cloNIDine [Catapres] 0.2 mg PO BID #60 tablet 04/20/18 12/06/18 Unknown Rx traMADol [Ultram] 50 mg PO Q6HR PRN #20 tablet 09/16/18 12/06/18 Unknown Rx Amlodipine Besylate [Norvasc] 10 mg PO DAILY 12/06/18 12/06/18 Unknown History Furosemide [Lasix TAB] 40 mg PO QDAY 12/06/18 12/06/18 Unknown History Gabapentin [Neurontin] 300 mg PO Q8HR 12/06/18 12/06/18 Unknown History hydrALAZINE [Apresoline] 50 mg PO Q8HR 12/06/18 12/06/18 Unknown History traMADol [Ultram] 50 mg PO Q6HR PRN #10 tablet 12/07/18 Unknown Rx ED Physical Exam - General Limitations: No Limitations General appearance: alert, in no apparent distress - Head Head exam: Present: atraumatic, normocephalic - Eye Eye exam: Present: normal appearance - ENT ENT exam: Present: mucous membranes moist - Neck Neck exam: Present: normal inspection - Respiratory Respiratory exam: Present: normal lung sounds bilaterally. Absent: respiratory distress, wheezes, rales - Cardiovascular Cardiovascular Exam: Present: regular rate, normal rhythm, normal heart sounds. Absent: systolic murmur, diastolic murmur, rubs, gallop - GI/Abdominal GI/Abdominal exam: Present: soft, normal bowel sounds - Rectal Rectal exam: Present: deferred - Extremities Exam Extremities exam: Present: normal inspection, pedal edema - Back Exam Back exam: Present: normal inspection - Neurological Exam Neurological exam: Present: alert, oriented X3 - Psychiatric Psychiatric exam: Present: normal affect, normal mood - Skin Skin exam: Present: warm, dry, intact, normal color. Absent: rash ED Course Vital Signs 12/06/18 12/07/18 12/07/18 22:14 01:39 01:40 Temperature 98.3 F Pulse Rate 94 H 64 Respiratory 18 20 20 Rate Blood Pressure 178/114 Blood Pressure 152/106 [Left] O2 Sat by Pulse 98 95 95 Oximetry ED Medical Decision Making - Lab Data Result diagrams: 12/06/18 22:34 12/06/18 22:34 Labs 12/06/18 12/06/18 12/06/18 22:34 22:34 22:34 WBC 8.7 RBC 5.39 H Hgb 14.0 Hct 43.5 MCV 81 L MCH 26 L MCHC 32 RDW 14.7 Plt Count 246 Lymph % (Auto) 15.8 [place] % (Auto) 6.8 Eos % (Auto) 1.4 Baso % (Auto) 0.6 Lymph # 1.4 [place] # 0.6 Eos # 0.1 Baso # 0.1 Seg Neutrophils % 75.4 H Seg Neutrophils # 6.5 PT 12.4 INR 0.87 APTT 30.6 Sodium 134 L Potassium 4.8 Chloride 98.5 Carbon Dioxide 25 Anion Gap 15 BUN 18 Creatinine 2.1 H Estimated GFR 42 BUN/Creatinine Ratio 9 Glucose 418 H POC Glucose Calcium 9.3 Troponin T 0.025 NT-Pro-B Natriuret Pep 12/06/18 12/07/18 12/07/18 22:34 01:20 01:54 WBC RBC Hgb Hct MCV MCH MCHC RDW Plt Count Lymph % (Auto) [place] % (Auto) Eos % (Auto) Baso % (Auto) Lymph # [place] # Eos # Baso # Seg Neutrophils % Seg Neutrophils # PT INR APTT Sodium Potassium Chloride Carbon Dioxide Anion Gap BUN Creatinine Estimated GFR BUN/Creatinine Ratio Glucose POC Glucose 321 H Calcium Troponin T 0.020 NT-Pro-B Natriuret Pep 84.67 - EKG Data -: EKG Interpreted by [place] - EKG Data 12/07/18 02:50 EKG shows sinus rhythm rate of 90. [place] and intervals are within normal limits. No ST segment elevations or depressions. - Radiology Data Radiology results: report reviewed (cxr wnl) - Medical Decision Making Patient is a 43-year-old black male who is complaining of some atypical chest pain. Patient states that he does have his blood pressure medicines and also has been taking his Lasix and medications for his diabetes. Patient may have some noncompliance since his blood pressure and sugar were both elevated. Patient states he is adamant that he will continue to take his medications. Patient blood pressure did respond well to treatment here. His blood sugar is decreasing. Patient had a stress test approximately 6 months ago which was normal. Instructed the patient is to follow-up with the cardiology office. Patient's had 2 negative troponins today. Patient discharged home. Critical care attestation.: If time is entered above; I have spent that time in minutes in the direct care of this critically ill patient, excluding procedure time. ED Disposition Clinical Impression: Atypical chest pain, Hyperglycemia Hypertension Qualifiers: Hypertension type: unspecified Qualified Code(s): I10 - Essential (primary) hy pertension Disposition: DC-01 TO HOME OR SELFCARE Is pt being admited?: No Does the pt Need Aspirin: No Condition: Stable Instructions: Chest Pain (ED), Hypertension (ED) Referrals: LIDIA LION MD [Staff Physician] - 3-5 Days Time of Disposition: 02:59
[2018-12-07 03:41] VITALS: BP 136/91
== END 2018-12-07 03:41 | disposition home or self-care (01) ==
LOC: ED 20:48
DX: R07.89 Other chest pain (principal); E11.65 Type 2 diabetes mellitus with hyperglycemia; I10 Essential (primary) hypertension; I11.0 Hypertensive heart disease with heart failure; I50.9 Heart failure, unspecified; Z79.899 Other long term (current) drug therapy
CPT/HCPCS: 36415; 71046; 80048; 82962; 83880; 84484; 85025; 85610; 85730; 93005; 96361; 96374; 99284; J7030; J1815

== ENCOUNTER 2019-04-22 18:01 | Inpatient (IN) | payer MEDICARE ==
[2019-04-22] MEDS ORDERED: TYLENOL PO ONE (18:10)
[2019-04-22] MEDS ORDERED: NACL 0.9% 1000 ML IV ONE (18:10)
--- NOTE | 2019-04-22 18:10 | Event Note ---
ED Screening Note ED Screening Note: pt presents for abscess on the back states he believes he got bit by something +fever +pus drainage has had before had surgery three months ago for the same thing at [facility] PMx DM, CHF no allergies to meds This initial assessment/diagnostic orders/clinical plan/treatment(s) is/are subject to change based on patients health status, clinical progression and re- assessment by fellow clinical providers in the ED. Further treatment and workup at subsequent clinical providers discretion. Patient/guardian urged not to elope from the ED as their condition may be serious if not clinically assessed and managed. sepsis protocol initiated by triage sent to MAIN ED for eval by
[2019-04-22] MEDS ORDERED: TYLENOL ONE (18:12)
[2019-04-22 18:28] LABS: Basophils # (Auto) 0.1 K/mm3 (0.0-0.1); Basophils % (Auto) 0.5 % (0.0-1.8); Eosinophils # (Auto) 0.1 K/mm3 (0.0-0.4); Eosinophils % (Auto) 0.5 % (0.0-4.3); Hematocrit 37.7 % (35.5-45.6); Hemoglobin 12.6 gm/dl (11.8-15.2); Lymphocytes # (Auto) 1.1 K/mm3 (1.2-5.4); Lymphocytes % (Auto) 6.3 % (13.4-35.0); Mean Corpuscular HGB Conc 33 % (32-34); Mean Corpuscular Volume 79 fl (84-94); Monocytes # (Auto) 1.2 K/mm3 (0.0-0.8); Monocytes % (Auto) 7.3 % (0.0-7.3); Platelet Count 229 K/mm3 (140-440); Red Blood Count 4.75 M/mm3 (3.65-5.03); Red Cell Distribution Width 14.5 % (13.2-15.2)
[2019-04-22 18:47] LABS: Albumin 3.5 g/dL (3.9-5); Calcium 8.9 mg/dL (8.4-10.2)
[2019-04-22] MEDS ORDERED: VANCOMYCIN/NS 1 GM/250 ML 1 GM/250 ML BAG IV ONE (23:28)
--- NOTE | 2019-04-22 23:33 | Emergency Department Report ---
- General Chief complaint: Skin/Abscess/Foreign Body Stated complaint: UPPER BACK BUMP/NECK PAIN/HEADACHE Time Seen by Provider: 04/22/19 18:07 Source: patient Mode of arrival: Ambulatory Limitations: No Limitations - History of Present Illness Initial comments: patient presents to er with right upper back, abscess, draining pus for the past three days worse today. h/o similar symptoms. has been febrile. Has not taken any medications for symptoms. MD complaint: insect bite/sting, abscess/boil Onset/Timin -: days(s) Severity scale (0 -10): 6 Quality: stabbing Consistency: constant Improves with: none Worsens with: movement Associated symptoms: fever, chills - Related Data Home Medications Medication Instructions Recorded Confirmed Last Taken Amlodipine Besylate [Norvasc] 10 mg PO DAILY 12/06/18 12/06/18 Unknown Furosemide [Lasix TAB] 40 mg PO QDAY 12/06/18 12/06/18 Unknown Gabapentin [Neurontin] 300 mg PO Q8HR 12/06/18 12/06/18 Unknown hydrALAZINE [Apresoline] 50 mg PO Q8HR 12/06/18 12/06/18 Unknown Previous Rx's Medication Instructions Recorded Last Taken Type Insulin NPH/Regular [NovoLIN 70/30] 50 unit SUB-Q AC #3 vial 04/20/18 Unknown Rx Pravastatin [Pravachol] 20 mg PO QHS #30 tablet 04/20/18 Unknown Rx cloNIDine [Catapres] 0.2 mg PO BID #60 tablet 04/20/18 Unknown Rx traMADol [Ultram] 50 mg PO Q6HR PRN #20 tablet 09/16/18 Unknown Rx traMADol [Ultram] 50 mg PO Q6HR PRN #10 tablet 12/07/18 Unknown Rx Allergies Allergy/AdvReac Type Severity Reaction Status Date / Time No Known Allergies Allergy Verified 04/22/19 18:02 Abscess Boil HPI - HPI Chief Complaint: Skin/Abscess/Foreign Body Stated Complaint: UPPER BACK BUMP/NECK PAIN/HEADACHE Time Seen by Provider: 04/22/19 18:07 Duration: 3 Days Location: Back History: Yes Fever, Yes Pain, Yes Purulent Drainage, Yes Insect Bite, No Numbness, No Foreign Body, No Previous History Home Medications: Home Medications Medication Instructions Recorded Confirmed Last Taken Amlodipine Besylate [Norvasc] 10 mg PO DAILY 12/06/18 12/06/18 Unknown Furosemide [Lasix TAB] 40 mg PO QDAY 12/06/18 12/06/18 Unknown Gabapentin [Neurontin] 300 mg PO Q8HR 12/06/18 12/06/18 Unknown hydrALAZINE [Apresoline] 50 mg PO Q8HR 12/06/18 12/06/18 Unknown Previous Rx's Medication Instructions Recorded Last Taken Type Insulin NPH/Regular [NovoLIN 70/30] 50 unit SUB-Q AC #3 vial 04/20/18 Unknown Rx Pravastatin [Pravachol] 20 mg PO QHS #30 tablet 04/20/18 Unknown Rx cloNIDine [Catapres] 0.2 mg PO BID #60 tablet 04/20/18 Unknown Rx traMADol [Ultram] 50 mg PO Q6HR PRN #20 tablet 09/16/18 Unknown Rx traMADol [Ultram] 50 mg PO Q6HR PRN #10 tablet 12/07/18 Unknown Rx Allergies/Adverse Reactions: Allergies Allergy/AdvReac Type Severity Reaction Status Date / Time No Known Allergies Allergy Verified 04/22/19 18:02 ED Review of Systems ROS: Stated complaint: UPPER BACK BUMP/NECK PAIN/HEADACHE Other details as noted in HPI Comment: All other systems reviewed and negative Constitutional: chills, fever Eyes: denies: eye pain ENT: denies: ear pain Respiratory: denies: see HPI, cough, orthopnea Cardiovascular: denies: chest pain ED Past Medical Hx - Past Medical History Hx Hypertension: Yes Hx Congestive Heart Failure: Yes Hx Diabetes: Yes Additional medical history: Pneumonia in 2016 with two chest tubes - Surgical History Additional Surgical History: spinal mennigitis, Chest tubes x 2 with pneumonia 2016 - Social History Smoking Status: Never Smoker Substance Use Type: None - Medications Home Medications: Home Medications Medication Instructions Recorded Confirmed Last Taken Type Insulin NPH/Regular [NovoLIN 70/30] 50 unit SUB-Q AC #3 vial 04/20/18 12/06/18 Unknown Rx Pravastatin [Pravachol] 20 mg PO QHS #30 tablet 04/20/18 12/06/18 Unknown Rx cloNIDine [Catapres] 0.2 mg PO BID #60 tablet 04/20/18 12/06/18 Unknown Rx traMADol [Ultram] 50 mg PO Q6HR PRN #20 tablet 09/16/18 12/06/18 Unknown Rx Amlodipine Besylate [Norvasc] 10 mg PO DAILY 12/06/18 12/06/18 Unknown History Furosemide [Lasix TAB] 40 mg PO QDAY 12/06/18 12/06/18 Unknown History Gabapentin [Neurontin] 300 mg PO Q8HR 12/06/18 12/06/18 Unknown History hydrALAZINE [Apresoline] 50 mg PO Q8HR 12/06/18 12/06/18 Unknown History traMADol [Ultram] 50 mg PO Q6HR PRN #10 tablet 12/07/18 Unknown Rx ED Physical Exam - General Limitations: No Limitations General appearance: alert, in no apparent distress - Head Head exam: Present: atraumatic, normocephalic - Eye Eye exam: Present: normal appearance, PERRL, EOMI - Respiratory Respiratory exam: Present: normal lung sounds bilaterally - Cardiovascular Cardiovascular Exam: Present: regular rate, normal rhythm - GI/Abdominal GI/Abdominal exam: Present: soft - Extremities Exam Extremities exam: Present: other (right upper back large abscess, over right shoulder.) - Back Exam Back exam: Present: other (draining right upper back abscess over right shoulder.) ED Course Vital Signs 04/22/19 18:07 Temperature 103.0 F H Pulse Rate 123 H Respiratory 18 Rate Blood Pressure 181/99 O2 Sat by Pulse 97 Oximetry ED Medical Decision Making - Lab Data Result diagrams: 04/22/19 18:13 04/22/19 18:13 Critical care attestation.: If time is entered above; I have spent that time in minutes in the direct care of this critically ill patient, excluding procedure time. ED Disposition Clinical Impression: Complicated abscess Sepsis Qualifiers: Sepsis type: sepsis due to unspecified organism Qualified Code(s): A41.9 - Sepsis, unspecified organism Disposition: OP ADMIT IP TO THIS HOSP Is pt being admited?: Yes Does the pt Need Aspirin: No Condition: Stable Referrals: TARIQ SALAZAR MD [Primary Care Provider] - 3-5 Days
[2019-04-23] MEDS ORDERED: ZOSYN/NS 3.375GM/50ML 3.375 GM/50 ML BAG IV ONE
[2019-04-23] MEDS ORDERED: AMBIEN PO PRN (00:22)
[2019-04-23] MEDS ORDERED: ZOFRAN IV PRN (00:22)
[2019-04-23] MEDS ORDERED: VANCOMYCIN 2,000 MG in NACL 0.9% 500 ML 500 ML IV ONE (01:00)
[2019-04-23] MEDS ORDERED: VANCOMYCIN PHARMACY TO DOSE IV SCH (01:00)
--- NOTE | 2019-04-23 01:11 | History and Physical Report ---
History of Present Illness Date of examination: 04/23/19 Date of admission: 04/22/19 23:37 Chief complaint: "I think something stung me" History of present illness: Patient is a 43-year-old -[place] male with history of DM1 we'll presented to the ED on an account of possibly a bee sting on the right side of his upper back about 4 days ago. Today, he started experiencing severe pain on the site, which prompted him to come to the ED for further evaluation. He has associated fever with chills and headaches. He also has positive history of bilateral leg swelling. He denied chest pain, shortness of breath, PND, orthopnea, cough, nausea, vomiting, lightheadedness, syncope or loss of consciousness. Past History Past Medical History: diabetes, heart failure, hypertension, hyperlipidemia, other (spinal meningitis, diabetic neuropathy) Past Surgical History: hernia repair, Other (incision and drainage of abscess on the upper back, spinal surgery) Social history: other (he denies tobacco, alcohol or illicit drug use) Family history: other (mother and grand-dad have diabetes and hypertension) Medications and Allergies Allergies Allergy/AdvReac Type Severity Reaction Status Date / Time No Known Allergies Allergy Verified 04/22/19 18:02 Home Medications Medication Instructions Recorded Confirmed Last Taken Type Insulin NPH/Regular [NovoLIN 70/30] 50 unit SUB-Q AC #3 vial 04/20/18 12/06/18 Unknown Rx Pravastatin [Pravachol] 20 mg PO QHS #30 tablet 04/20/18 12/06/18 Unknown Rx cloNIDine [Catapres] 0.2 mg PO BID #60 tablet 04/20/18 12/06/18 Unknown Rx traMADol [Ultram] 50 mg PO Q6HR PRN #20 tablet 09/16/18 12/06/18 Unknown Rx Amlodipine Besylate [Norvasc] 10 mg PO DAILY 12/06/18 12/06/18 Unknown History Furosemide [Lasix TAB] 40 mg PO QDAY 12/06/18 12/06/18 Unknown History Gabapentin [Neurontin] 300 mg PO Q8HR 12/06/18 12/06/18 Unknown History hydrALAZINE [Apresoline] 50 mg PO Q8HR 12/06/18 12/06/18 Unknown History traMADol [Ultram] 50 mg PO Q6HR PRN #10 tablet 12/07/18 Unknown Rx Active Meds: Active Medications Acetaminophen (Tylenol) 650 mg PO Q4H PRN PRN Reason: Pain MILD(1-3)/Fever >100.5/KINNEY Docusate Sodium (Colace) 100 mg PO BID [facility] Heparin Sodium (Porcine) (Heparin) 5,000 unit SUB-Q Q8HR [facility] Hydromorphone HCl (Dilaudid) 1 mg IV Q3H PRN PRN Reason: Pain , Severe (7-10) Sodium Chloride (Nacl 0.9% 1000 Ml) 1,000 mls @ 100 mls/hr IV DIRECT BARRY Vancomycin HCl 2,000 mg/ (Sodium Chloride) 540 mls @ 250 mls/hr IV ONCE ONE Stop: 04/23/19 03:09 Piperacillin Sod/Tazobactam Sod (Zosyn/Ns 2.25 Gm/50ml) 2.25 gm in 50 mls @ 100 mls/hr IV Q6HR [facility] Ondansetron HCl (Zofran) 4 mg IV Q8H PRN PRN Reason: Nausea And Vomiting Oxycodone/Acetaminophen (Percocet 5/325) 1 tab PO Q4H PRN PRN Reason: Pain, Moderate (4-6) Sodium Chloride (Sodium Chloride Flush Syringe 10 Ml) 10 ml IV BID BARRY Sodium Chloride (Sodium Chloride Flush Syringe 10 Ml) 10 ml IV PRN PRN PRN Reason: LINE FLUSH Zolpidem Tartrate (Ambien) 5 mg PO QHS PRN PRN Reason: Insomnia Review of Systems All systems: negative (except as documented in the HPI, 14 point system reviewed were negative) Exam - Constitutional Vitals: Temp Pulse Resp BP Pulse Ox 103.0 F H 123 H 18 181/99 97 04/22/19 18:07 04/22/19 18:07 04/22/19 18:07 04/22/19 18:07 04/22/19 18:07 General appearance: Present: no acute distress, obese - EENT Eyes: Present: PERRL ENT: hearing intact, clear oral mucosa - Neck Neck: Present: supple, normal ROM - Respiratory Respiratory effort: normal Respiratory: bilateral: CTA - Cardiovascular Rhythm: regular Heart Sounds: Present: S1 & S2. Absent: rub, click - Extremities Extremities: pulses symmetrical Extremity abnormal: edema (in bilateral lower extremities) - Abdominal General gastrointestinal: Present: soft, non-tender, non-distended, normal bowel sounds Male genitourinary: Present: deferred - Integumentary Integumentary: Present: warm, erythema (with swelling and draining ulcer on the right side of upper back) - Musculoskeletal Musculoskeletal: gait normal, strength equal bilaterally - Psychiatric Psychiatric: appropriate mood/affect, intact judgment & insight - Neurologic Neurologic: CNII-XII intact, moves all extremities Results - Labs CBC & Chem 7: 04/22/19 18:13 04/22/19 18:13 Labs: Laboratory Last Values WBC 17.2 K/mm3 (4.5-11.0) H 04/22/19 18:13 RBC 4.75 M/mm3 (3.65-5.03) 04/22/19 18:13 Hgb 12.6 gm/dl (11.8-15.2) 04/22/19 18:13 Hct 37.7 % (35.5-45.6) 04/22/19 18:13 MCV 79 fl (84-94) L 04/22/19 18:13 MCH 26 pg (28-32) L 04/22/19 18:13 MCHC 33 % (32-34) 04/22/19 18:13 RDW 14.5 % (13.2-15.2) 04/22/19 18:13 Plt Count 229 K/mm3 (140-440) 04/22/19 18:13 Lymph % (Auto) 6.3 % (13.4-35.0) L 04/22/19 18:13 Whitfield % (Auto) 7.3 % (0.0-7.3) 04/22/19 18:13 Eos % (Auto) 0.5 % (0.0-4.3) 04/22/19 18:13 Baso % (Auto) 0.5 % (0.0-1.8) 04/22/19 18:13 Lymph # 1.1 K/mm3 (1.2-5.4) L 04/22/19 18:13 Whitfield # 1.2 K/mm3 (0.0-0.8) H 04/22/19 18:13 Eos # 0.1 K/mm3 (0.0-0.4) 04/22/19 18:13 Baso # 0.1 K/mm3 (0.0-0.1) 04/22/19 18:13 Seg Neutrophils % 85.4 % (40.0-70.0) H 04/22/19 18:13 Seg Neutrophils # 14.7 K/mm3 (1.8-7.7) H 04/22/19 18:13 Sodium 127 mmol/L (137-145) L 04/22/19 18:13 Potassium 4.6 mmol/L (3.6-5.0) 04/22/19 18:13 Chloride 96.2 mmol/L (98-107) L 04/22/19 18:13 Carbon Dioxide 19 mmol/L (22-30) L 04/22/19 18:13 16 mmol/L 04/22/19 18:13 BUN 35 mg/dL (9-20) H 04/22/19 18:13 2.7 mg/dL (0.8-1.5) H 04/22/19 18:13 Estimated GFR 31 ml/min 04/22/19 18:13 13 % 04/22/19 18:13 Glucose 482 mg/dL (75-100) H 04/22/19 18:13 Lactic Acid 0.90 mmol/L (0.7-2.0) 04/22/19 21:16 Calcium 8.9 mg/dL (8.4-10.2) 04/22/19 18:13 0.40 mg/dL (0.1-1.2) 04/22/19 18:13 AST 13 units/L (5-40) 04/22/19 18:13 ALT 17 units/L (7-56) 04/22/19 18:13 160 units/L (35-129) H 04/22/19 18:13 7.8 g/dL (6.3-8.2) 04/22/19 18:13 3.5 g/dL (3.9-5) L 04/22/19 18:13 0.8 % 04/22/19 18:13 Assessment and Plan Assessment and plan: Sepsis secondary to skin abscess -On IV broad-spectrum antibiotics with Vanc and Zosyn -Blood cultures pending -Surgery consulted in the ED DM1 with hyperglycemia -On Lantus and SSI -Hba1c pending Hyponatremia -On IV fluid, will monitor sodium level closely Metabolic acidosis -Secondary to the hyperglycemia -On IV fluid, will monitor bicarbonate level Acute on CKD stage III -On IV fluid, will monitor creatinine level Hypertensive urgency -On antihypertensives, adjust as needed Diabetic neuropathy -Resume gabapentin Hyperlipidemia -Resume statin Elevated alkaline phosphatase -We will monitor level Chronic diastolic heart failure with EF of 49% -No acute exacerbation DVT prophylaxis with heparin Disposition: Patient will be placed on inpatient status with plan for discharge when medically stable Time spent: 40 minutes
[2019-04-23] MEDS: NACL 0.9% 1000 ML 1,000 ML IV SCH ×3 (01:18→16:56)
[2019-04-23] MEDS ORDERED: D50W (25GM) Syringe IV PRN (01:18)
[2019-04-23] MEDS ORDERED: DILAUDID ONE (01:24)
[2019-04-23] MEDS: DILAUDID IV PRN ×4 (01:28→22:07)
[2019-04-23] MEDS: APRESOLINE PO SCH ×4 (02:49→21:57)
[2019-04-23] MEDS: CATAPRES PO SCH ×3 (02:49→21:58)
[2019-04-23] MEDS: TYLENOL PO PRN ×3 (02:50→21:55)
[2019-04-23] MEDS: LANTUS SUB-Q SCH ×4 (03:07→22:14)
[2019-04-23] MEDS: HEPARIN SUB-Q SCH ×3 (05:21→21:56)
[2019-04-23] MEDS: ZOSYN/NS 2.25 GM/50ML 2.25 GM/50 ML BAG IV SCH ×2 (05:21→11:57)
[2019-04-23 06:00] LABS: Amorphous Crystals,Urine Few; Bacteria,Urine 1+ /HPF (Negative); Bilirubin,Urine NEG (Negative); Blood,Urine SM (Negative); Color,Urine Straw (Yellow); Mucus,Urine FEW /HPF; Urobilinogen,Urine < 2.0 mg/dL (<2.0); WBC,Urine < 1.0 /HPF (0.0-6.0)
[2019-04-23] MEDS ORDERED: ZOSYN/NS 3.375GM/50ML 3.375 GM/50 ML BAG IV SCH (06:00)
[2019-04-23 06:12] LABS: Protein,Urine >500 mg/dL (Negative)
[2019-04-23 06:39] LABS: Calcium 8.5 mg/dL (8.4-10.2)
[2019-04-23] MEDS: HumaLOG SUB-Q SCH ×4 (08:29→21:55)
[2019-04-23] MEDS: COLACE PO SCH ×2 (09:27→21:57)
[2019-04-23] MEDS: NORVASC PO SCH (09:27)
[2019-04-23] MEDS: SODIUM CHLORIDE FLUSH SYRINGE 10 ML IV SCH ×2 (09:28→21:59)
[2019-04-23] MEDS ORDERED: XYLOCAINE 1%/ EPI 1:100,000 INFILTRATI ONE (09:46)
[2019-04-23] MEDS: PERCOCET 5/325 PO PRN (10:43)
--- NOTE | 2019-04-23 10:48 | Consultation ---
History of Present Illness Consult date: 04/23/19 Reason for consult: wound care Requesting physician: ROBIN QUEVEDO Chief complaint: back abscess - History of present illness History of present illness: 43yo M with DM presents to ED last night due to severe back pain. Has abscess drained in ED. Gen Surg asked to consult for wound management. Pt reports that it has been there for about 4 days. Was seen by a physician in the office. He reports that no treatment or recommendations were given. +F/C/KINNEY. No radiating pain. Never had this before. Past History Past Medical History: diabetes, heart failure, hypertension, hyperlipidemia, other (spinal meningitis, diabetic neuropathy) Past Surgical History: hernia repair, Other (incision and drainage of abscess on the upper back, spinal surgery (3month ago under general anesthesia - no complications)) Social history: other (he denies tobacco, alcohol or illicit drug use) Family history: other (mother and grand-dad have diabetes and hypertension) Medications and Allergies Allergies Allergy/AdvReac Type Severity Reaction Status Date / Time No Known Allergies Allergy Verified 04/22/19 18:02 Home Medications Medication Instructions Recorded Confirmed Last Taken Type Insulin NPH/Regular [NovoLIN 70/30] 50 unit SUB-Q AC #3 vial 04/20/18 12/06/18 Unknown Rx Pravastatin [Pravachol] 20 mg PO QHS #30 tablet 04/20/18 12/06/18 Unknown Rx cloNIDine [Catapres] 0.2 mg PO BID #60 tablet 04/20/18 12/06/18 Unknown Rx traMADol [Ultram] 50 mg PO Q6HR PRN #20 tablet 09/16/18 12/06/18 Unknown Rx Amlodipine Besylate [Norvasc] 10 mg PO DAILY 12/06/18 12/06/18 Unknown History Furosemide [Lasix TAB] 40 mg PO QDAY 12/06/18 12/06/18 Unknown History Gabapentin [Neurontin] 300 mg PO Q8HR 12/06/18 12/06/18 Unknown History hydrALAZINE [Apresoline] 50 mg PO Q8HR 12/06/18 12/06/18 Unknown History traMADol [Ultram] 50 mg PO Q6HR PRN #10 tablet 12/07/18 Unknown Rx Active Meds: Active Medications Acetaminophen (Tylenol) 650 mg PO Q4H PRN PRN Reason: Pain MILD(1-3)/Fever >100.5/KINNEY Last Admin: 04/23/19 02:50 Dose: 650 mg Documented by: Amlodipine Besylate (Norvasc) 10 mg PO QDAY [facility] Last Admin: 04/23/19 09:27 Dose: 10 mg Documented by: Clonidine HCl (Catapres) 0.2 mg PO Q12HR [facility] Last Admin: 04/23/19 09:26 Dose: 0.2 mg Documented by: Dextrose (D50w (25gm) Syringe) 50 ml IV PRN PRN PRN Reason: Hypoglycemia Docusate Sodium (Colace) 100 mg PO BID [facility] Last Admin: 04/23/19 09:27 Dose: 100 mg Documented by: Heparin Sodium (Porcine) (Heparin) 5,000 unit SUB-Q Q8HR [facility] Last Admin: 04/23/19 05:21 Dose: 5,000 unit Documented by: Hydralazine HCl (Apresoline) 50 mg PO Q8H [facility] Last Admin: 04/23/19 09:27 Dose: 50 mg Documented by: Hydralazine HCl (Apresoline) 10 mg IV Q4H PRN PRN Reason: Blood Pressure Hydromorphone HCl (Dilaudid) 1 mg IV Q3H PRN PRN Reason: Pain , Severe (7-10) Last Admin: 04/23/19 05:26 Dose: 1 mg Documented by: Sodium Chloride (Nacl 0.9% 1000 Ml) 1,000 mls @ 100 mls/hr IV DIRECT [facility] Last Admin: 04/23/19 02:51 Dose: 100 mls/hr Documented by: Piperacillin Sod/Tazobactam Sod (Zosyn/Ns 2.25 Gm/50ml) 2.25 gm in 50 mls @ 100 mls/hr IV Q6HR [facility] Last Admin: 04/23/19 05:21 Dose: 100 mls/hr Documented by: Insulin Glargine (Lantus) 25 units SUB-Q BID [facility] Last Admin: 04/23/19 03:07 Dose: 25 units Documented by: Insulin Human Lispro (Humalog) 0 unit SUB-Q ACHS [facility]; Protocol Last Admin: 04/23/19 08:29 Dose: 6 unit Documented by: Ondansetron HCl (Zofran) 4 mg IV Q8H PRN PRN Reason: Nausea And Vomiting Oxycodone/Acetaminophen (Percocet 5/325) 1 tab PO Q4H PRN PRN Reason: Pain, Moderate (4-6) Last Admin: 04/23/19 10:43 Dose: 1 tab Documented by: Sodium Chloride (Sodium Chloride Flush Syringe 10 Ml) 10 ml IV BID [facility] Last Admin: 04/23/19 09:28 Dose: 10 ml Documented by: Sodium Chloride (Sodium Chloride Flush Syringe 10 Ml) 10 ml IV PRN PRN PRN Reason: LINE FLUSH Zolpidem Tartrate (Ambien) 5 mg PO QHS PRN PRN Reason: Insomnia Review of Systems - Constitutional fever, chills - Cardiovascular no chest pain, no shortness of breath - Respiratory no cough - Gastrointestinal no abdominal pain, no nausea, no vomiting - Muskuloskeletal no low back pain right: shoulder pain - Integumentary redness, wounds - Neurological headaches Exam Vital Signs Temp Pulse Resp BP Pulse Ox 103.0 F H 123 H 18 181/99 97 04/22/19 18:07 04/22/19 18:07 04/22/19 18:07 04/22/19 18:07 04/22/19 18:07 - General physical appearance Positive: no distress, no pain, obese - Eyes Positive: normal occular movement - Respiratory Positive: normal expansion, normal respiratory effort, clear to auscultation - Cardiovascular Rhythm: regular - Integumentary other (large area of induration, erythema on right upper back near shoulder. 2cm open wound. No active drainage. Very tender. +warmth. No obvious fluctuance) - Neurologic Neurologic: alert and oriented to time, place and person - Psychiatric Psychiatric: appropriate mood/affect, intact judgment & insight, cooperative Results - Labs 04/22/19 18:13 04/23/19 04:18 Abnormal lab results 04/22/19 04/22/19 04/23/19 Range/Units 18:13 18:13 03:06 WBC 17.2 H (4.5-11.0) K/mm3 MCV 79 L (84-94) fl MCH 26 L (28-32) pg Lymph % (Auto) 6.3 L (13.4-35.0) % Lymph # 1.1 L (1.2-5.4) K/mm3 Johnson # 1.2 H (0.0-0.8) K/mm3 Seg Neutrophils % 85.4 H (40.0-70.0) % Seg Neutrophils # 14.7 H (1.8-7.7) K/mm3 Sodium 127 L (137-145) mmol/L Chloride 96.2 L (98-107) mmol/L Carbon Dioxide 19 L (22-30) mmol/L BUN 35 H (9-20) mg/dL Creatinine 2.7 H (0.8-1.5) mg/dL Glucose 482 H (75-100) mg/dL POC Glucose 376 H (70-105) Hemoglobin A1c (4-6) % Alkaline Phosphatase 160 H (35-129) units/L Albumin 3.5 L (3.9-5) g/dL 04/23/19 04/23/19 04/23/19 Range/Units 04:17 04:18 07:35 WBC (4.5-11.0) K/mm3 MCV (84-94) fl MCH (28-32) pg Lymph % (Auto) (13.4-35.0) % Lymph # (1.2-5.4) K/mm3 Johnson # (0.0-0.8) K/mm3 Seg Neutrophils % (40.0-70.0) % Seg Neutrophils # (1.8-7.7) K/mm3 Sodium 131 L (137-145) mmol/L Chloride (98-107) mmol/L Carbon Dioxide 18 L (22-30) mmol/L BUN 33 H (9-20) mg/dL Creatinine 2.5 H (0.8-1.5) mg/dL Glucose 406 H (75-100) mg/dL POC Glucose 349 H (70-105) Hemoglobin A1c 13.7 H (4-6) % Alkaline Phosphatase (35-129) units/L Albumin (3.9-5) g/dL Diabetes panel 04/22/19 04/23/19 04/23/19 Range/Units 18:13 04:17 04:18 Sodium 127 L 131 L (137-145) mmol/L Potassium 4.6 4.5 (3.6-5.0) mmol/L Chloride 96.2 L 100.7 (98-107) mmol/L Carbon Dioxide 19 L 18 L (22-30) mmol/L BUN 35 H 33 H (9-20) mg/dL Creatinine 2.7 H 2.5 H (0.8-1.5) mg/dL Glucose 482 H 406 H (75-100) mg/dL Hemoglobin A1c 13.7 H (4-6) % Calcium 8.9 8.5 (8.4-10.2) mg/dL AST 13 (5-40) units/L ALT 17 (7-56) units/L Alkaline Phosphatase 160 H (35-129) units/L Total Protein 7.8 (6.3-8.2) g/dL Albumin 3.5 L (3.9-5) g/dL Calcium panel 04/22/19 04/23/19 Range/Units 18:13 04:18 Calcium 8.9 8.5 (8.4-10.2) mg/dL Albumin 3.5 L (3.9-5) g/dL Pituitary panel 04/22/19 04/23/19 Range/Units 18:13 04:18 Sodium 127 L 131 L (137-145) mmol/L Potassium 4.6 4.5 (3.6-5.0) mmol/L Chloride 96.2 L 100.7 (98-107) mmol/L Carbon Dioxide 19 L 18 L (22-30) mmol/L BUN 35 H 33 H (9-20) mg/dL Creatinine 2.7 H 2.5 H (0.8-1.5) mg/dL Glucose 482 H 406 H (75-100) mg/dL Calcium 8.9 8.5 (8.4-10.2) mg/dL Adrenal panel 04/22/19 04/23/19 Range/Units 18:13 04:18 Sodium 127 L 131 L (137-145) mmol/L Potassium 4.6 4.5 (3.6-5.0) mmol/L Chloride 96.2 L 100.7 (98-107) mmol/L Carbon Dioxide 19 L 18 L (22-30) mmol/L BUN 35 H 33 H (9-20) mg/dL Creatinine 2.7 H 2.5 H (0.8-1.5) mg/dL Glucose 482 H 406 H (75-100) mg/dL Calcium 8.9 8.5 (8.4-10.2) mg/dL Total Bilirubin 0.40 (0.1-1.2) mg/dL AST 13 (5-40) units/L ALT 17 (7-56) units/L Alkaline Phosphatase 160 H (35-129) units/L Total Protein 7.8 (6.3-8.2) g/dL Albumin 3.5 L (3.9-5) g/dL Assessment and Plan - Patient Problems (1) Complicated abscess Current Visit: Yes Status: Acute Plan to address problem: Pt stable. Patient in need of wound exploration. Discussed options of bedside evaluation versus operating room. Patient did not feel he could tolerate the procedure at the bedside. Therefore, we will make plans for the operating room. As he is stable and he is not NPO, we will plan for surgery tomorrow in the operating room. I will return to complete the written consent. Time=30min
--- NOTE | 2019-04-23 12:30 | Progress Note ---
Assessment and Plan Assessment and plan: Patient is a 43-year-old -Armenian male with history of DM1 we'll presented to the ED on an account of possibly a bee sting on the right side of his upper back about 4 days ago. Today, he started experiencing severe pain on the site, which prompted him to come to the ED for further evaluation. He has associated fever with chills and headaches. He also has positive history of bilateral leg swelling. He denied chest pain, shortness of breath, PND, orthopnea, cough, nausea, vomiting, lightheadedness, syncope or loss of consciousness. Past History Past Medical History: diabetes, heart failure, hypertension, hyperlipidemia, other (spinal meningitis, diabetic neuropathy) Past Surgical History: hernia repair, Other (incision and drainage of abscess on the upper back, spinal surgery) Sepsis secondary to skin abscess -On IV broad-spectrum antibiotics with Vanc and Zosyn -Blood cultures pending Hypertensive urgency -On antihypertensives, adjust as needed -Adjust Hydralazin to 100mg PO q 8hrs DM1 with hyperglycemia -On Lantus and SSI -Hba1c 13.7 -Counselling -Adjust insulin upwards for better control, considering infection Acute on CKD stage III -On IV fluid, will monitor creatinine level - Obtain renal consult Hyponatremia -On IV fluid, will monitor sodium level closely Metabolic acidosis -Secondary to the hyperglycemia -On IV fluid, will monitor bicarbonate level Diabetic neuropathy -Resume gabapentin Hyperlipidemia -Resume statin Elevated alkaline phosphatase -We will monitor level Chronic diastolic heart failure with EF of 49% -No acute exacerbation DVT prophylaxis with heparin History Interval history: Patient seen and examined, ,reports relieve from the pain. Hospitalist Physical - Constitutional Vitals: Temp Pulse Resp BP Pulse Ox 99.3 F 91 H 12 187/111 94 04/23/19 07:44 04/23/19 09:27 04/23/19 07:44 04/23/19 09:27 04/23/19 07:44 General appearance: Present: no acute distress, obese - EENT Eyes: Present: PERRL, EOM intact ENT: clear oral mucosa - Neck Neck: Present: supple, normal ROM - Respiratory Respiratory effort: normal Respiratory: bilateral: CTA - Cardiovascular Rhythm: regular Heart Sounds: Present: S1 & S2. Absent: systolic murmur - Extremities Extremities: no ischemia, pulses intact, pulses symmetrical, No edema, normal temperature, normal color, Full ROM Peripheral Pulses: within normal limits - Abdominal General gastrointestinal: soft, non-tender, non-distended, normal bowel sounds - Integumentary Integumentary: Present: warm, erythema (back abscess, left upper back with drainage) - Psychiatric Psychiatric: appropriate mood/affect, intact judgment & insight - Neurologic Neurologic: CNII-XII intact, moves all extremities - Allied Health Allied health notes reviewed: nursing Results - Labs CBC & Chem 7: 04/24/19 05:18 04/25/19 05:24 Labs: Laboratory Last Values WBC 17.2 K/mm3 (4.5-11.0) H 04/22/19 18:13 RBC 4.75 M/mm3 (3.65-5.03) 04/22/19 18:13 Hgb 12.6 gm/dl (11.8-15.2) 04/22/19 18:13 Hct 37.7 % (35.5-45.6) 04/22/19 18:13 MCV 79 fl (84-94) L 04/22/19 18:13 MCH 26 pg (28-32) L 04/22/19 18:13 MCHC 33 % (32-34) 04/22/19 18:13 RDW 14.5 % (13.2-15.2) 04/22/19 18:13 Plt Count 229 K/mm3 (140-440) 04/22/19 18:13 Lymph % (Auto) 6.3 % (13.4-35.0) L 04/22/19 18:13 [place] % (Auto) 7.3 % (0.0-7.3) 04/22/19 18:13 Eos % (Auto) 0.5 % (0.0-4.3) 04/22/19 18:13 Baso % (Auto) 0.5 % (0.0-1.8) 04/22/19 18:13 Lymph # 1.1 K/mm3 (1.2-5.4) L 04/22/19 18:13 [place] # 1.2 K/mm3 (0.0-0.8) H 04/22/19 18:13 Eos # 0.1 K/mm3 (0.0-0.4) 04/22/19 18:13 Baso # 0.1 K/mm3 (0.0-0.1) 04/22/19 18:13 Seg Neutrophils % 85.4 % (40.0-70.0) H 04/22/19 18:13 Seg Neutrophils # 14.7 K/mm3 (1.8-7.7) H 04/22/19 18:13 Sodium 131 mmol/L (137-145) L 04/23/19 04:18 Potassium 4.5 mmol/L (3.6-5.0) 04/23/19 04:18 Chloride 100.7 mmol/L (98-107) 04/23/19 04:18 Carbon Dioxide 18 mmol/L (22-30) L 04/23/19 04:18 17 mmol/L 04/23/19 04:18 BUN 33 mg/dL (9-20) H 04/23/19 04:18 2.5 mg/dL (0.8-1.5) H 04/23/19 04:18 Estimated GFR 34 ml/min 04/23/19 04:18 13 % 04/23/19 04:18 Glucose 406 mg/dL (75-100) H 04/23/19 04:18 POC Glucose 330 (70-105) H 04/23/19 11:42 13.7 % (4-6) H 04/23/19 04:17 Lactic Acid 0.90 mmol/L (0.7-2.0) 04/22/19 21:16 Calcium 8.5 mg/dL (8.4-10.2) 04/23/19 04:18 0.40 mg/dL (0.1-1.2) 04/22/19 18:13 AST 13 units/L (5-40) 04/22/19 18:13 ALT 17 units/L (7-56) 04/22/19 18:13 160 units/L (35-129) H 04/22/19 18:13 7.8 g/dL (6.3-8.2) 04/22/19 18:13 3.5 g/dL (3.9-5) L 04/22/19 18:13 0.8 % 04/22/19 18:13 Straw (Yellow) 04/22/19 04:54 Clear (Clear) 04/22/19 04:54 5.0 (5.0-7.0) 04/22/19 04:54 Ur Specific [place] 1.017 (1.003-1.030) 04/22/19 04:54 >500 mg/dL (Negative) 04/22/19 04:54 >=500 mg/dL (Negative) 04/22/19 04:54 Tr mg/dL (Negative) 04/22/19 04:54 Sm (Negative) 04/22/19 04:54 Neg (Negative) 04/22/19 04:54 Neg (Negative) 04/22/19 04:54 < 2.0 mg/dL (<2.0) 04/22/19 04:54 Ur Leukocyte Esterase Neg (Negative) 04/22/19 04:54 < 1.0 /HPF (0.0-6.0) 04/22/19 04:54 4.0 /HPF (0.0-6.0) 04/22/19 04:54 U Epithel Cells (Auto) < 1.0 /HPF (0-13.0) 04/22/19 04:54 1+ /HPF (Negative) 04/22/19 04:54 Amorphous Crystals Few 04/22/19 04:54 Few /HPF 04/22/19 04:54 Active Medications - Current Medications Current Medications: Generic Name Dose Route Start Last Admin Trade Name Freq PRN Reason Stop Dose Admin Acetaminophen 650 mg 04/23/19 00:22 04/23/19 02:50 Tylenol PO 650 mg Q4H PRN Administration Pain MILD(1-3)/Fever >100.5/KINNEY Amlodipine Besylate 10 mg 04/23/19 10:00 04/23/19 09:27 Norvasc PO 10 mg QDAY BARRY Administration Clonidine HCl 0.2 mg 04/23/19 02:00 04/23/19 09:26 Catapres PO 0.2 mg Q12HR BARRY Administration Dextrose 50 ml 04/23/19 01:18 D50w (25gm) Syringe IV PRN PRN Hypoglycemia Docusate Sodium 100 mg 04/23/19 10:00 04/23/19 09:27 Colace PO 100 mg BID BARRY Administration Furosemide 40 mg 04/24/19 10:00 Lasix PO QDAY BARRY Gabapentin 300 mg 04/23/19 14:00 Neurontin PO Q8HR BARRY Heparin Sodium (Porcine) 5,000 unit 04/23/19 06:00 04/23/19 05:21 Heparin SUB-Q 5,000 unit Q8HR BARRY Administration Hydralazine HCl 50 mg 04/23/19 02:00 04/23/19 09:27 Apresoline PO 50 mg Q8H BARRY Administration Hydralazine HCl 10 mg 04/23/19 01:23 Apresoline IV Q4H PRN Blood Pressure Hydromorphone HCl 1 mg 04/23/19 00:22 04/23/19 11:07 Dilaudid IV 1 mg Q3H PRN Administration Pain , Severe (7-10) Sodium Chloride 1,000 mls @ 100 mls/hr 04/23/19 01:00 04/23/19 02:51 Nacl 0.9% 1000 Ml IV 100 mls/hr DIRECT BARRY Administration Piperacillin Sod/Tazobactam Sod 2.25 gm in 50 mls @ 100 mls/hr 04/23/19 06:00 04/23/19 11:57 Zosyn/Ns 2.25 Gm/50ml IV 100 mls/hr Q6HR BARRY Administration Insulin Glargine 30 units 04/23/19 12:30 Lantus SUB-Q BID BARRY Insulin Human Lispro 0 unit 04/23/19 07:30 04/23/19 12:00 Humalog SUB-Q 6 unit ACHS BARRY Administration Protocol Ondansetron HCl 4 mg 04/23/19 00:22 Zofran IV Q8H PRN Nausea And Vomiting Oxycodone/Acetaminophen 1 tab 04/23/19 00:22 Percocet 5/325 PO Q4H PRN Pain, Moderate (4-6) Pravastatin Sodium 20 mg 04/23/19 22:00 Pravachol PO QHS BARRY Sodium Chloride 10 ml 04/23/19 10:00 04/23/19 09:28 Sodium Chloride Flush Syringe 10 Ml IV 10 ml BID BARRY Administration Sodium Chloride 10 ml 04/23/19 00:22 Sodium Chloride Flush Syringe 10 Ml IV PRN PRN LINE FLUSH Zolpidem Tartrate 5 mg 04/23/19 00:22 Ambien PO QHS PRN Insomnia
[2019-04-23] MEDS: LASIX PO SCH (14:43)
[2019-04-23] MEDS: NEURONTIN PO SCH ×2 (14:43→21:56)
[2019-04-23] MEDS ORDERED: LOPRESSOR IV ONE (17:15)
[2019-04-23] MEDS: HumuLIN R SUB-Q SCH (19:36)
[2019-04-23] MEDS: PRAVACHOL PO SCH (21:57)
[2019-04-23] MEDS: ZOSYN/NS 4.5GM/100ML 4.5 GM/100 ML VIAL IV SCH (21:59)
[2019-04-24] MEDS: DILAUDID IV PRN ×4 (05:01→21:58)
[2019-04-24] MEDS: SODIUM CHLORIDE FLUSH SYRINGE 10 ML IV PRN ×2 (05:04→21:58)
[2019-04-24] MEDS: HEPARIN SUB-Q SCH ×3 (05:06→21:56)
[2019-04-24] MEDS: ZOSYN/NS 4.5GM/100ML 4.5 GM/100 ML VIAL IV SCH ×2 (05:06→14:02)
[2019-04-24] MEDS: APRESOLINE PO SCH ×3 (05:06→21:56)
[2019-04-24] MEDS: NEURONTIN PO SCH ×3 (05:06→21:55)
[2019-04-24] MEDS: NACL 0.9% 1000 ML 1,000 ML IV SCH ×2 (05:10→22:02)
[2019-04-24 06:18] LABS: Basophils # (Auto) 0.1 K/mm3 (0.0-0.1); Basophils % (Auto) 0.5 % (0.0-1.8); Eosinophils # (Auto) 0.1 K/mm3 (0.0-0.4); Eosinophils % (Auto) 0.3 % (0.0-4.3); Hematocrit 36.9 % (35.5-45.6); Lymphocytes # (Auto) 1.5 K/mm3 (1.2-5.4); Lymphocytes % (Auto) 8.1 % (13.4-35.0); Mean Corpuscular HGB Conc 33 % (32-34); Mean Corpuscular Volume 80 fl (84-94); Monocytes # (Auto) 2.3 K/mm3 (0.0-0.8); Monocytes % (Auto) 12.2 % (0.0-7.3); Platelet Count 219 K/mm3 (140-440); Red Blood Count 4.62 M/mm3 (3.65-5.03); Red Cell Distribution Width 14.5 % (13.2-15.2)
[2019-04-24 06:40] LABS: Albumin 2.9 g/dL (3.9-5); BUN/Creatinine Ratio 10; Blood Urea Nitrogen 22 mg/dL (9-20); Calcium 8.7 mg/dL (8.4-10.2); Hemolysis Index 137
[2019-04-24 06:59] LABS: Bilirubin,Direct < 0.2 mg/dL (0-0.2)
[2019-04-24 07:08] LABS: Alanine Aminotransferase 13 units/L (7-56)
[2019-04-24] MEDS ORDERED: HYDROGEN PEROXIDE ONE ×2 (08:34→08:38)
[2019-04-24] MEDS ORDERED: MARCAINE 0.5% INFILTRATI ONE ×3 (08:34→09:15)
[2019-04-24] MEDS ORDERED: ZOFRAN IV PRN (08:39)
[2019-04-24] MEDS ORDERED: SUBLIMAZE IV PRN (08:39)
[2019-04-24] MEDS: HumuLIN R SUB-Q SCH ×3 (08:44→16:30)
[2019-04-24] MEDS: NORVASC PO SCH ×2 (08:45→14:09)
[2019-04-24] MEDS: CATAPRES PO SCH ×3 (08:46→21:56)
[2019-04-24] MEDS: HumaLOG SUB-Q SCH ×4 (08:47→21:57)
[2019-04-24] MEDS ORDERED: DIPRIVAN 10 MG/ML IV ONE (09:01)
[2019-04-24] MEDS ORDERED: SUBLIMAZE ONE (09:05)
--- NOTE | 2019-04-24 09:05 | Anesthesia Day of Surgery ---
Anesthesia Day of Surgery - Day of Surgery Patient Examined: Yes Patient H&P Reviewed: Yes Patient is NPO: Yes
--- NOTE | 2019-04-24 09:07 | Anesthesia Consultation ---
Anesthesia Consult and Med Hx Date of service: 04/24/19 - Airway Anesthetic Teeth Evaluation: Good ROM Head & Neck: Adequate Mental/Hyoid Distance: Adequate Mallampati Class: Class II Intubation Access Assessment: Probably Good - Pre-Operative Health Status ASA Pre-Surgery Classification: ASA3, Emergency Proposed Anesthetic Plan: General - Pulmonary Hx Smoking: No - Cardiovascular System Hx Hypertension: Yes (CHF-EF .49. States he can climb two flights of stairs) - Central Nervous System Hx Back Pain: Yes (Had spinal surgery) - Endocrine Hx Renal Disease: Yes (CKD Stage 3) Hx Insulin Dependent Diabetes: Yes (Neuropathy of feet) - Other Systems Hx Cancer: No
[2019-04-24] MEDS ORDERED: NACL 0.9% IR ONE (09:15)
[2019-04-24] MEDS ORDERED: XYLOCAINE MPF 2% ONE (09:44)
[2019-04-24] MEDS ORDERED: ZOFRAN ONE (09:44)
[2019-04-24] MEDS ORDERED: DAKIN'S HALF STRENGTH TP ONE (09:50)
--- NOTE | 2019-04-24 10:21 | Post Operative Note ---
Date of procedure: 04/24/19 (dictation:[id number]) Pre-op diagnosis: back abscess Post-op diagnosis: same Findings: extensive, complicated abscess with multiple tracts in subq tissue Procedure: I&D with debridement of back abscess IVF 200cc EBL~20cc Anesthesia: GETA Surgeon: NALLELY DEJESUS Estimated blood loss: minimal Pathology: list (culture swabs) Specimen disposition: to lab Condition: stable Disposition: PACU
[2019-04-24] MEDS: LANTUS SUB-Q SCH ×2 (11:01→21:57)
--- NOTE | 2019-04-24 11:12 | Post Anesthesia Evaluation ---
- Post Anesthesia Evaluation Patient Participated: Yes Airway Patent: Yes Stable Respiratory Function: Yes Nausea/Vomiting: No Temp > 96.8F: Yes Pain Manageable: Yes Adequeate Hydration: Yes Anesthesia Complications: No Block Receding Appropriately: Not Applicable Patient on Ventilator: No
[2019-04-24] MEDS: COLACE PO SCH ×2 (11:38→21:55)
[2019-04-24] MEDS: LASIX PO SCH (12:43)
[2019-04-24] MEDS ORDERED: VANCOMYCIN 2,000 MG in NACL 0.9% 500 ML 500 ML IV ONE (13:00)
--- NOTE | 2019-04-24 13:11 | Progress Note ---
Assessment and Plan Assessment and plan: Patient is a 43-year-old -[place] male with history of DM1 we'll presented to the ED on an account of possibly a bee sting on the right side of his upper back about 4 days ago. Today, he started experiencing severe pain on the site, which prompted him to come to the ED for further evaluation. He has associated fever with chills and headaches. He also has positive history of bilateral leg swelling. He denied chest pain, shortness of breath, PND, orthopnea, cough, nausea, vomiting, lightheadedness, syncope or loss of consciousness. Past History Past Medical History: diabetes, heart failure, hypertension, hyperlipidemia, other (spinal meningitis, diabetic neuropathy) Past Surgical History: hernia repair, Other (incision and drainage of abscess on the upper back, spinal surgery) Sepsis secondary to skin abscess -On IV broad-spectrum antibiotics with Vanc and Zosyn -s/p I/D -Blood cultures pending -ID consult Hypertensive urgency -On antihypertensives, adjust as needed -Adjust Hydralazin to 100mg PO q 8hrs DM1 with hyperglycemia -On Lantus and SSI -Hba1c 13.7 -Counselling -Adjust insulin upwards for better control, considering infection Acute on CKD stage III -On IV fluid, will monitor creatinine level - Obtain renal consult Hyponatremia -On IV fluid, will monitor sodium level closely Metabolic acidosis -Secondary to the hyperglycemia -On IV fluid, will monitor bicarbonate level Diabetic neuropathy -Resume gabapentin Hyperlipidemia -Resume statin Elevated alkaline phosphatase -We will monitor level Chronic diastolic heart failure with EF of 49% -No acute exacerbation DVT prophylaxis with heparin History Interval history: Patient seen and examined, went for I/D in the or today, reports relieve from the pain. Hospitalist Physical - Constitutional Vitals: Temp Pulse Resp BP Pulse Ox 97.8 F 84 20 138/86 97 04/24/19 11:44 04/24/19 11:00 04/24/19 11:44 04/24/19 11:44 04/24/19 11:00 General appearance: Present: no acute distress, obese - EENT Eyes: Present: PERRL, EOM intact ENT: hearing intact, clear oral mucosa, dentition normal - Neck Neck: Present: supple, normal ROM - Respiratory Respiratory effort: normal Respiratory: bilateral: CTA - Cardiovascular Rhythm: regular Heart Sounds: Present: S1 & S2. Absent: systolic murmur - Extremities Extremities: no ischemia, pulses intact, pulses symmetrical, No edema, normal temperature, normal color, Full ROM Peripheral Pulses: within normal limits - Abdominal General gastrointestinal: soft, non-tender, non-distended, normal bowel sounds - Integumentary Integumentary: Present: warm, erythema (dressing over the posterior back ) - Psychiatric Psychiatric: appropriate mood/affect, intact judgment & insight - Neurologic Neurologic: CNII-XII intact, moves all extremities Results - Labs CBC & Chem 7: 04/24/19 05:18 04/25/19 05:24 Labs: Laboratory Last Values WBC 18.8 K/mm3 (4.5-11.0) H 04/24/19 05:18 RBC 4.62 M/mm3 (3.65-5.03) 04/24/19 05:18 Hgb 12.0 gm/dl (11.8-15.2) 04/24/19 05:18 Hct 36.9 % (35.5-45.6) 04/24/19 05:18 MCV 80 fl (84-94) L 04/24/19 05:18 MCH 26 pg (28-32) L 04/24/19 05:18 MCHC 33 % (32-34) 04/24/19 05:18 RDW 14.5 % (13.2-15.2) 04/24/19 05:18 Plt Count 219 K/mm3 (140-440) 04/24/19 05:18 Lymph % (Auto) 8.1 % (13.4-35.0) L 04/24/19 05:18 [place] % (Auto) 12.2 % (0.0-7.3) H 04/24/19 05:18 Eos % (Auto) 0.3 % (0.0-4.3) 04/24/19 05:18 Baso % (Auto) 0.5 % (0.0-1.8) 04/24/19 05:18 Lymph # 1.5 K/mm3 (1.2-5.4) 04/24/19 05:18 [place] # 2.3 K/mm3 (0.0-0.8) H 04/24/19 05:18 Eos # 0.1 K/mm3 (0.0-0.4) 04/24/19 05:18 Baso # 0.1 K/mm3 (0.0-0.1) 04/24/19 05:18 Seg Neutrophils % 78.9 % (40.0-70.0) H 04/24/19 05:18 Seg Neutrophils # 14.8 K/mm3 (1.8-7.7) H 04/24/19 05:18 Sodium 135 mmol/L (137-145) L 04/24/19 05:18 Potassium 4.7 mmol/L (3.6-5.0) 04/24/19 05:18 Chloride 102.0 mmol/L (98-107) 04/24/19 05:18 Carbon Dioxide 20 mmol/L (22-30) L 04/24/19 05:18 18 mmol/L 04/24/19 05:18 BUN 22 mg/dL (9-20) H 04/24/19 05:18 2.3 mg/dL (0.8-1.5) H 04/24/19 05:18 Estimated GFR 38 ml/min 04/24/19 05:18 10 % 04/24/19 05:18 Glucose 266 mg/dL (75-100) H 04/24/19 05:18 POC Glucose 216 (70-105) H 04/24/19 11:49 13.7 % (4-6) H 04/23/19 04:17 Lactic Acid 0.90 mmol/L (0.7-2.0) 04/22/19 21:16 Calcium 8.7 mg/dL (8.4-10.2) 04/24/19 05:18 0.70 mg/dL (0.1-1.2) 04/24/19 05:18 < 0.2 mg/dL (0-0.2) 04/24/19 05:18 0.5 mg/dL 04/24/19 05:18 AST 19 units/L (5-40) 04/24/19 05:18 ALT 13 units/L (7-56) 04/24/19 05:18 153 units/L (35-129) H 04/24/19 05:18 7.8 g/dL (6.3-8.2) 04/24/19 05:18 2.9 g/dL (3.9-5) L 04/24/19 05:18 0.6 % 04/24/19 05:18 Straw (Yellow) 04/22/19 04:54 Clear (Clear) 04/22/19 04:54 5.0 (5.0-7.0) 04/22/19 04:54 Ur Specific [place] 1.017 (1.003-1.030) 04/22/19 04:54 >500 mg/dL (Negative) 04/22/19 04:54 >=500 mg/dL (Negative) 04/22/19 04:54 Tr mg/dL (Negative) 04/22/19 04:54 Sm (Negative) 04/22/19 04:54 Neg (Negative) 04/22/19 04:54 Neg (Negative) 04/22/19 04:54 < 2.0 mg/dL (<2.0) 04/22/19 04:54 Ur Leukocyte Esterase Neg (Negative) 04/22/19 04:54 < 1.0 /HPF (0.0-6.0) 04/22/19 04:54 4.0 /HPF (0.0-6.0) 04/22/19 04:54 U Epithel Cells (Auto) < 1.0 /HPF (0-13.0) 04/22/19 04:54 1+ /HPF (Negative) 04/22/19 04:54 Amorphous Crystals Few 04/22/19 04:54 Few /HPF 04/22/19 04:54 Random Vancomycin 6.3 ug/mL (0-40.0) 04/24/19 05:18 Active Medications - Current Medications Current Medications: Generic Name Dose Route Start Last Admin Trade Name [place] PRN Reason Stop Dose Admin Acetaminophen 650 mg 04/23/19 00:22 04/23/19 21:55 Tylenol PO 650 mg Q4H PRN Administration Pain MILD(1-3)/Fever >100.5/KINNEY Amlodipine Besylate 10 mg 04/23/19 10:00 04/24/19 08:45 Norvasc PO 10 mg QDAY BARRY Administration Clonidine HCl 0.2 mg 04/23/19 02:00 04/24/19 08:46 Catapres PO 0.2 mg Q12HR BARRY Administration Dextrose 50 ml 04/23/19 01:18 D50w (25gm) Syringe IV PRN PRN Hypoglycemia Docusate Sodium 100 mg 04/23/19 10:00 04/24/19 11:38 Colace PO Not Given BID BARRY Fentanyl 50 mcg 04/24/19 08:39 Sublimaze IV Q5MIN PRN Pain , Severe (7-10) Furosemide 40 mg 04/23/19 14:00 04/24/19 12:43 Lasix PO 40 mg QDAY BARRY Administration Gabapentin 300 mg 04/23/19 14:00 04/24/19 05:06 Neurontin PO 300 mg Q8HR BARRY Administration Heparin Sodium (Porcine) 5,000 unit 04/23/19 06:00 04/24/19 05:06 Heparin SUB-Q 5,000 unit Q8HR BARRY Administration Hydralazine HCl 10 mg 04/23/19 01:23 Apresoline IV Q4H PRN Blood Pressure Hydralazine HCl 100 mg 04/23/19 14:00 04/24/19 05:06 Apresoline PO 100 mg Q8HR BARRY Administration Hydromorphone HCl 1 mg 04/23/19 00:22 04/24/19 11:51 Dilaudid IV 1 mg Q3H PRN Administration Pain , Severe (7-10) Sodium Chloride 1,000 mls @ 100 mls/hr 04/23/19 01:00 04/24/19 05:10 Nacl 0.9% 1000 Ml IV 100 mls/hr DIRECT BARRY Administration Piperacillin Sod/Tazobactam Sod 4.5 gm in 100 mls @ 200 mls/hr 04/23/19 22:00 04/24/19 05:06 Zosyn/Ns 4.5gm/100ml IV 200 mls/hr Q8HR BARRY Administration Vancomycin HCl 2,000 mg/ 540 mls @ 250 mls/hr 04/24/19 13:00 Sodium Chloride IV 04/24/19 15:09 ONCE ONE Insulin Glargine 30 units 04/23/19 14:00 04/24/19 11:01 Lantus SUB-Q 30 units BID BARRY Administration Insulin Human Lispro 0 unit 04/23/19 07:30 04/24/19 11:30 Humalog SUB-Q 3 unit ACHS BARRY Administration Protocol Insulin Human Regular 10 units 04/23/19 16:30 04/24/19 11:30 Humulin R SUB-Q 10 units AC BARRY Administration Ondansetron HCl 4 mg 04/23/19 00:22 Zofran IV Q8H PRN Nausea And Vomiting Ondansetron HCl 4 mg 04/24/19 08:39 Zofran IV ONCE PRN Nausea And Vomiting Oxycodone/Acetaminophen 1 tab 04/23/19 00:22 Percocet 5/325 PO Q4H PRN Pain, Moderate (4-6) Pravastatin Sodium 20 mg 04/23/19 22:00 04/23/19 21:57 Pravachol PO 20 mg QHS BARRY Administration Sodium Chloride 10 ml 04/23/19 10:00 04/23/19 21:59 Sodium Chloride Flush Syringe 10 Ml IV 10 ml BID BARRY Administration Sodium Chloride 10 ml 04/23/19 00:22 04/24/19 05:04 Sodium Chloride Flush Syringe 10 Ml IV 10 ml PRN PRN Administration LINE FLUSH Zolpidem Tartrate 5 mg 04/23/19 00:22 Ambien PO QHS PRN Insomnia
[2019-04-24] MEDS: SODIUM CHLORIDE FLUSH SYRINGE 10 ML IV SCH ×2 (14:10→21:57)
--- NOTE | 2019-04-24 15:04 | Consultation ---
History of Present Illness - Reason for Consult Consult date: 04/24/19 Abscess Requesting physician: ERIC LUCAS - History of Present Illness The patient is a 43-year-old male with diabetes mellitus type 1, hypertension, hyperlipidemia thinks he got a bee sting about 4 days prior to admission. He then started developing pain and swelling associated with fevers and chills. Hence, he presented to the emergency room and was hospitalized on 04/22/2019. He was noted to be septic with fever, leukocytosis and tachycardia. Due to concerns for an abscess, Gen. surgery was consulted and today the patient underwent an I&D in the OR. He just received returned from the operating room. States he is still having shaking chills. As per the op note, extensive, complicated abscess with multiple tracts in subcutaneous tissue. He is on empiric Zosyn and Vancomycin. Review of Systems: General: + fevers,chills HEENT: no new visual disturbance Respiratory: No cough, sputum, hemoptysis or shortness of breath Cardiovascular: No chest pain, syncope Gastrointestinal: No nausea, vomiting or diarrhea Genitourinary: No dysuria or hematuria Musculoskeletal: No new or worsening neck pain or back pain Neurologic: No headaches, seizures Hematologic: No easy bruising or bleeding Endocrine: No night sweats or acute weight loss Skin: negative for rash, jaundice Psychiatric: No suicidal or homicidal ideation Past History Past Medical History: diabetes, heart failure, hypertension, hyperlipidemia, other (spinal meningitis, diabetic neuropathy) Past Surgical History: hernia repair, Other (incision and drainage of abscess on the upper back, spinal surgery (3month ago under general anesthesia - no complications)) Social history: other (he denies tobacco, alcohol or illicit drug use) Family history: other (mother and grand-dad have diabetes and hypertension) Medications and Allergies Allergies Allergy/AdvReac Type Severity Reaction Status Date / Time No Known Allergies Allergy Verified 04/22/19 18:02 Home Medications Medication Instructions Recorded Confirmed Last Taken Type Insulin NPH/Regular [NovoLIN 70/30] 50 unit SUB-Q AC #3 vial 04/20/18 12/06/18 Unknown Rx Pravastatin [Pravachol] 20 mg PO QHS #30 tablet 04/20/18 12/06/18 Unknown Rx cloNIDine [Catapres] 0.2 mg PO BID #60 tablet 04/20/18 12/06/18 Unknown Rx traMADol [Ultram] 50 mg PO Q6HR PRN #20 tablet 09/16/18 12/06/18 Unknown Rx Amlodipine Besylate [Norvasc] 10 mg PO DAILY 12/06/18 12/06/18 Unknown History Furosemide [Lasix TAB] 40 mg PO QDAY 12/06/18 12/06/18 Unknown History Gabapentin [Neurontin] 300 mg PO Q8HR 12/06/18 12/06/18 Unknown History hydrALAZINE [Apresoline] 50 mg PO Q8HR 12/06/18 12/06/18 Unknown History traMADol [Ultram] 50 mg PO Q6HR PRN #10 tablet 12/07/18 Unknown Rx Active Meds: Active Medications Acetaminophen (Tylenol) 650 mg PO Q4H PRN PRN Reason: Pain MILD(1-3)/Fever >100.5/KINNEY Last Admin: 04/23/19 21:55 Dose: 650 mg Documented by: Amlodipine Besylate (Norvasc) 10 mg PO QDAY [facility] Last Admin: 04/24/19 14:09 Dose: Not Given Documented by: Clonidine HCl (Catapres) 0.2 mg PO Q12HR [facility] Last Admin: 04/24/19 14:09 Dose: Not Given Documented by: Dextrose (D50w (25gm) Syringe) 50 ml IV PRN PRN PRN Reason: Hypoglycemia Docusate Sodium (Colace) 100 mg PO BID [facility] Last Admin: 04/24/19 11:38 Dose: Not Given Documented by: Fentanyl (Sublimaze) 50 mcg IV Q5MIN PRN PRN Reason: Pain , Severe (7-10) Furosemide (Lasix) 40 mg PO QDAY [facility] Last Admin: 04/24/19 12:43 Dose: 40 mg Documented by: Gabapentin (Neurontin) 300 mg PO Q8HR [facility] Last Admin: 04/24/19 14:05 Dose: 300 mg Documented by: Heparin Sodium (Porcine) (Heparin) 5,000 unit SUB-Q Q8HR [facility] Last Admin: 04/24/19 14:02 Dose: 5,000 unit Documented by: Hydralazine HCl (Apresoline) 10 mg IV Q4H PRN PRN Reason: Blood Pressure Hydralazine HCl (Apresoline) 100 mg PO Q8HR [facility] Last Admin: 04/24/19 14:05 Dose: 100 mg Documented by: Hydromorphone HCl (Dilaudid) 1 mg IV Q3H PRN PRN Reason: Pain , Severe (7-10) Last Admin: 04/24/19 11:51 Dose: 1 mg Documented by: Sodium Chloride (Nacl 0.9% 1000 Ml) 1,000 mls @ 100 mls/hr IV DIRECT [facility] Last Admin: 04/24/19 05:10 Dose: 100 mls/hr Documented by: Piperacillin Sod/Tazobactam Sod (Zosyn/Ns 4.5gm/100ml) 4.5 gm in 100 mls @ 200 mls/hr IV Q8HR [facility] Last Admin: 04/24/19 14:02 Dose: 200 mls/hr Documented by: Vancomycin HCl 2,000 mg/ (Sodium Chloride) 540 mls @ 250 mls/hr IV ONCE ONE Stop: 04/24/19 15:09 Vancomycin HCl 2,000 mg/ (Sodium Chloride) 540 mls @ 250 mls/hr IV Q24H [facility] Insulin Glargine (Lantus) 30 units SUB-Q BID [facility] Last Admin: 04/24/19 11:01 Dose: 30 units Documented by: Insulin Human Lispro (Humalog) 0 unit SUB-Q [facility]; Protocol Last Admin: 04/24/19 11:30 Dose: 3 unit Documented by: Insulin Human Regular (Humulin R) 10 units SUB-Q AC [facility] Last Admin: 04/24/19 11:30 Dose: 10 units Documented by: Ondansetron HCl (Zofran) 4 mg IV Q8H PRN PRN Reason: Nausea And Vomiting Ondansetron HCl (Zofran) 4 mg IV ONCE PRN PRN Reason: Nausea And Vomiting Oxycodone/Acetaminophen (Percocet 5/325) 1 tab PO Q4H PRN PRN Reason: Pain, Moderate (4-6) Pravastatin Sodium (Pravachol) 20 mg PO QHS [facility] Last Admin: 04/23/19 21:57 Dose: 20 mg Documented by: Sodium Chloride (Sodium Chloride Flush Syringe 10 Ml) 10 ml IV BID [facility] Last Admin: 04/24/19 14:10 Dose: 10 ml Documented by: Sodium Chloride (Sodium Chloride Flush Syringe 10 Ml) 10 ml IV PRN PRN PRN Reason: LINE FLUSH Last Admin: 04/24/19 05:04 Dose: 10 ml Documented by: Zolpidem Tartrate (Ambien) 5 mg PO QHS PRN PRN Reason: Insomnia Physical Examination - Physical Exam Narrative exam: Physical Exam: Constitutional: Alert, cooperative. No acute distress Head, Ears, Nose: Normocephalic, atraumatic. External ears, nose normal Eyes: Conjunctivae/corneas clear. No icterus. No ptosis. Neck: Supple, no meningeal signs Oral: no thrush Cardiovascular: S1, S2 normal. Respiratory: Good air entry, clear to auscultation bilaterally GI: Soft, non-tender; bowel sounds normal. No peritoneal signs Musculoskeletal: No pedal edema, no cyanosis. R upper back/shoulder region with dressing + Skin: No rash or abscess Hem/Lymphatic: No palpable cervical or supraclavicular nodes. No lymphangitis Psych: Mood ok. Affect normal Neurological: Awake, alert, oriented. No gross abnormality - Constitutional Vitals: Vital Signs Temp Pulse Resp BP Pulse Ox 97.8 F 84 20 138/86 97 04/24/19 11:44 04/24/19 11:00 04/24/19 11:44 04/24/19 11:44 04/24/19 11:00 Temperature -Last 24 Hours Temperature 97.8 F Temperature 98.7 F Temperature 98.4 F Temperature 98.5 F Temperature 98.8 F Temperature 102.2 F Results - Labs CBC & Chem 7: 04/24/19 05:18 04/24/19 05:18 Labs: Abnormal lab results 04/23/19 04/23/19 04/24/19 Range/Units 16:47 21:54 05:18 WBC 18.8 H (4.5-11.0) K/mm3 MCV 80 L (84-94) fl MCH 26 L (28-32) pg Lymph % (Auto) 8.1 L (13.4-35.0) % Randolph % (Auto) 12.2 H (0.0-7.3) % Randolph # 2.3 H (0.0-0.8) K/mm3 Seg Neutrophils % 78.9 H (40.0-70.0) % Seg Neutrophils # 14.8 H (1.8-7.7) K/mm3 Sodium (137-145) mmol/L Carbon Dioxide (22-30) mmol/L BUN (9-20) mg/dL Creatinine (0.8-1.5) mg/dL Glucose (75-100) mg/dL POC Glucose 284 H 325 H (70-105) Alkaline Phosphatase (35-129) units/L Albumin (3.9-5) g/dL 04/24/19 04/24/19 04/24/19 Range/Units 05:18 08:48 10:42 WBC (4.5-11.0) K/mm3 MCV (84-94) fl MCH (28-32) pg Lymph % (Auto) (13.4-35.0) % Randolph % (Auto) (0.0-7.3) % Randolph # (0.0-0.8) K/mm3 Seg Neutrophils % (40.0-70.0) % Seg Neutrophils # (1.8-7.7) K/mm3 Sodium 135 L (137-145) mmol/L Carbon Dioxide 20 L (22-30) mmol/L BUN 22 H (9-20) mg/dL Creatinine 2.3 H (0.8-1.5) mg/dL Glucose 266 H (75-100) mg/dL POC Glucose 313 H 272 H (70-105) Alkaline Phosphatase 153 H (35-129) units/L Albumin 2.9 L (3.9-5) g/dL 04/24/19 Range/Units 11:49 WBC (4.5-11.0) K/mm3 MCV (84-94) fl MCH (28-32) pg Lymph % (Auto) (13.4-35.0) % Randolph % (Auto) (0.0-7.3) % Randolph # (0.0-0.8) K/mm3 Seg Neutrophils % (40.0-70.0) % Seg Neutrophils # (1.8-7.7) K/mm3 Sodium (137-145) mmol/L Carbon Dioxide (22-30) mmol/L BUN (9-20) mg/dL Creatinine (0.8-1.5) mg/dL Glucose (75-100) mg/dL POC Glucose 216 H (70-105) Alkaline Phosphatase (35-129) units/L Albumin (3.9-5) g/dL Assessment and Plan Cultures: 04/22/2019 and blood culture: Staph aureus 04/22/2019 wound culture: Staph aureus 04/23/2019 blood culture: In progress 04/24/2019 surgical culture: In process. Gram stain with Gram-positive cocci. A/P: 43-year-old male with diabetes mellitus type 1, hypertension, hyperlipidemia admitted with: #Sepsis secondary to Staph aureus bacteremia, source is right upper back abscess: Status post I&D in the OR. Given bacteremia, need to ensure bacteremia clearance. Also, check TTE to eval for valvular seeding, though low suspicion for endocarditis. #Diabetes mellitus type 1, uncontrolled with hyperglycemia #Acute kidney injury on CKD: renally dose abx. Recs: TTE ordered D/Matthew Zosyn Continue IV Vancomycin, target trough: 10-20 mcg/ml If MSSA, can switch to Cefazolin F/U blood cultures to ensure clearance Continue wound care and tight glycemic control contact isolation till MRSA ruled out D/W Dr. Lucas. Lynn Pagan MD, FACP [facility] ([facility] C: [phone] O: [phone] F: [phone]
[2019-04-24] MEDS: TYLENOL PO PRN ×2 (15:36→21:54)
--- NOTE | 2019-04-24 19:56 | Consultation ---
History of Present Illness - Reason for Consult Consult date: 04/24/19 acute renal failure Requesting physician: ERIC MOLINA - History of Present Illness 43-year-old male with history of diabetes mellitus since 2011, hypertension and chronic heart failure admitted on account of severe pain and swelling and redness on the right side of his upper back 4 days duration. Patient had a bee sting 4 days prior to admission. Subsequently developed the above symptoms. H e's been having fever and chills. On presenting the emergency room, he had incision and drainage of the abscess. BUN//Creatinine found to be elevated at 35/2.7 mg/dL and has subsequently improved to 22/2.3 mg/dL. I am consulted to assist with managing the renal failure. Patient denies any voiding difficulties. No frequency, urgency, dysuria, hematuria or starting or stopping. He has not been as postauricular contrast. Patient has been taking Advil 3 tablets twice a day for the last 4 months or so. In April 2018, BUN/creatinine where 28/1.5-1.6 mg/dL. Urinalysis now shows protein more than 500 mg/dL, glucose 105 100 mg/dL with blood small. Past History Past Medical History: diabetes (diagnosed in 2011), heart failure, hypertension, hyperlipidemia, other (spinal meningitis, diabetic neuropathy) Past Surgical History: hernia repair, Other (incision and drainage of abscess on the upper back, spinal surgery (3month ago under general anesthesia - no complications)) Social history: other (he denies tobacco, alcohol or illicit drug use. 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 [facility] and 2 children). denies: smoking, alcohol abuse, prescription drug abuse, IV drug use Family history: hypertension (His 2 brothers and 2 sister all have hypertension.), other (mother and grand-dad had diabetes and hypertension. Father was murdered in his 30s. ) Medications and Allergies Allergies Allergy/AdvReac Type Severity Reaction Status Date / Time acetaminophen [From Percocet] AdvReac Mild Itching Verified 04/24/19 15:52 oxycodone [From Percocet] AdvReac Mild Itching Verified 04/24/19 15:52 Home Medications Medication Instructions Recorded Confirmed Last Taken Type Insulin NPH/Regular [NovoLIN 70/30] 50 unit SUB-Q AC #3 vial 04/20/18 12/06/18 Unknown Rx Pravastatin [Pravachol] 20 mg PO QHS #30 tablet 04/20/18 12/06/18 Unknown Rx cloNIDine [Catapres] 0.2 mg PO BID #60 tablet 04/20/18 12/06/18 Unknown Rx traMADol [Ultram 50 MG tab] 50 mg PO Q6HR PRN #20 tablet 09/16/18 12/06/18 Unknown Rx Amlodipine Besylate [Norvasc] 10 mg PO DAILY 12/06/18 12/06/18 Unknown History Furosemide [Lasix TAB] 40 mg PO QDAY 12/06/18 12/06/18 Unknown History Gabapentin [Neurontin] 300 mg PO Q8HR 12/06/18 12/06/18 Unknown History hydrALAZINE [Apresoline TAB] 50 mg PO Q8HR 12/06/18 12/06/18 Unknown History Insulin Regular, Human [HumuLIN R] 10 units SUB-Q AC 30 Days units 04/25/19 Unknown Rx hydrALAZINE [Apresoline TAB] 100 mg PO Q8HR #90 tab 04/25/19 Unknown Rx Active Meds: Active Medications Acetaminophen (Tylenol) 650 mg PO Q4H PRN PRN Reason: Pain MILD(1-3)/Fever >100.5/KINNEY Last Admin: 04/24/19 15:36 Dose: 650 mg Documented by: Amlodipine Besylate (Norvasc) 10 mg PO QDAY [facility] Last Admin: 04/24/19 14:09 Dose: Not Given Documented by: Clonidine HCl (Catapres) 0.2 mg PO Q12HR [facility] Last Admin: 04/24/19 14:09 Dose: Not Given Documented by: Dextrose (D50w (25gm) Syringe) 50 ml IV PRN PRN PRN Reason: Hypoglycemia Docusate Sodium (Colace) 100 mg PO BID [facility] Last Admin: 04/24/19 11:38 Dose: Not Given Documented by: Fentanyl (Sublimaze) 50 mcg IV Q5MIN PRN PRN Reason: Pain , Severe (7-10) Furosemide (Lasix) 40 mg PO QDAY [facility] Last Admin: 04/24/19 12:43 Dose: 40 mg Documented by: Gabapentin (Neurontin) 300 mg PO Q8HR [facility] Last Admin: 04/24/19 14:05 Dose: 300 mg Documented by: Heparin Sodium (Porcine) (Heparin) 5,000 unit SUB-Q Q8HR [facility] Last Admin: 04/24/19 14:02 Dose: 5,000 unit Documented by: Hydralazine HCl (Apresoline) 10 mg IV Q4H PRN PRN Reason: Blood Pressure Hydralazine HCl (Apresoline) 100 mg PO Q8HR [facility] Last Admin: 04/24/19 14:05 Dose: 100 mg Documented by: Hydromorphone HCl (Dilaudid) 1 mg IV Q3H PRN PRN Reason: Pain , Severe (7-10) Last Admin: 04/24/19 17:48 Dose: 1 mg Documented by: Sodium Chloride (Nacl 0.9% 1000 Ml) 1,000 mls @ 100 mls/hr IV DIRECT [facility] Last Admin: 04/24/19 05:10 Dose: 100 mls/hr Documented by: Vancomycin HCl 2,000 mg/ (Sodium Chloride) 540 mls @ 250 mls/hr IV Q24H [facility] Insulin Glargine (Lantus) 30 units SUB-Q BID [facility] Last Admin: 04/24/19 11:01 Dose: 30 units Documented by: Insulin Human Lispro (Humalog) 0 unit SUB-Q [facility]; Protocol Last Admin: 04/24/19 16:30 Dose: 3 unit Documented by: Insulin Human Regular (Humulin R) 10 units SUB-Q AC [facility] Last Admin: 04/24/19 16:30 Dose: 10 units Documented by: Ondansetron HCl (Zofran) 4 mg IV Q8H PRN PRN Reason: Nausea And Vomiting Ondansetron HCl (Zofran) 4 mg IV ONCE PRN PRN Reason: Nausea And Vomiting Oxycodone/Acetaminophen (Percocet 5/325) 1 tab PO Q4H PRN PRN Reason: Pain, Moderate (4-6) Pravastatin Sodium (Pravachol) 20 mg PO QHS [facility] Last Admin: 04/23/19 21:57 Dose: 20 mg Documented by: Sodium Chloride (Sodium Chloride Flush Syringe 10 Ml) 10 ml IV BID [facility] Last Admin: 04/24/19 14:10 Dose: 10 ml Documented by: Sodium Chloride (Sodium Chloride Flush Syringe 10 Ml) 10 ml IV PRN PRN PRN Reason: LINE FLUSH Last Admin: 04/24/19 05:04 Dose: 10 ml Documented by: Zolpidem Tartrate (Ambien) 5 mg PO QHS PRN PRN Reason: Insomnia Review of Systems All systems: negative (Constitutional: Admits to fever and chills. Appetite is diminished. No Weight loss. HEENT: No sore throat or sinus drainage no hearing or vision impairment . Cardiovascular: No chest pain, shortness of breath, palpitations, l admits to ower extremity swelling but no dizziness. Respiratory: No cough, sputum, shortness of breath, hemoptysis or wheezing. Gastrointestinal: No nausea, vomiting, diarrhea, abdominal pain, hematemesis or melena. Genitourinary: No frequency urgency dysuria or hematuria. hematologic: No abnormal bleeding or bruising. Integumentary: no pruritus or rash. Neurological: Admits to headache no focal weakness or numbness, no syncope or seizures. Musculoskeletal: Admits to back pain. No joint stiffness. Psychiatry: no anxiety or depression) Exam - Vital Signs Vital signs: Vital Signs Temp Pulse Resp BP Pulse Ox 103.0 F H 123 H 18 181/99 97 04/22/19 18:07 04/22/19 18:07 04/22/19 18:07 04/22/19 18:07 04/22/19 18:07 - Physical Exam Narrative exam: Heavily built Middle-aged -[place] male lying in bed in no acute distress HEENT: NCAT, pink oral mucous membrane Neck: Supple, no venous distention CVS: S1S2 RRR with no murmur, rub or gallop Chest: Clear to auscultation Abdomen: Protuberant, soft, nontender, no organomegaly, bowel sounds are present Extremities: No edema Dressing in his upper back clean and dry, Genitourinary deferred Neuro: Awake, alert no focal deficits Results - Lab Results 04/24/19 05:18 04/25/19 05:24 Most recent lab results Calcium 8.7 mg/dL (8.4-10.2) 04/24/19 05:18 Assessment and Plan - Patient Problems (1) SHERLY (acute kidney injury) Current Visit: No Status: Acute Plan to address problem: Prerenal azotemia versus acute tubular necrosis secondary to sepsis. I also suspect superimposed NSAID induced nephropathy with a long-standing use of Advil. Get kidney. QUANTIFY PROTEINURIA. GENTLE VOLUME REPLETION. FOLLOW UP ELECTROLYTES AND RENAL FUNCTION. (2) Chronic kidney disease, stage III (moderate) Current Visit: Yes Status: Acute Plan to address problem: Chronic kidney disease presumably secondary to diabetic nephropathy/hypertensive nephrosclerosis. Baseline kidney function normal known (3) Proteinuria Current Visit: Yes Status: Acute Plan to address problem: Suggests diabetic nephropathy. Quantify proteinuria (4) Abscess of back Current Visit: Yes Status: Acute Plan to address problem: Incision and drainage done by surgeon. Continue antibiotics. Follow up blood and wound culture (5) Type 2 diabetes mellitus with diabetic nephropathy Current Visit: Yes Status: Acute Plan to address problem: Blood sugar control by primary attending. (6) Hypertensive chronic kidney disease with stage 1 through stage 4 chronic kidney disease, or unspecified chronic kidney disease Current Visit: Yes Status: Acute Plan to address problem: Follow blood pressure on current medications
[2019-04-24] MEDS: PRAVACHOL PO SCH (21:55)
--- NOTE | 2019-04-24 22:18 | Operative Report ---
PREOPERATIVE DIAGNOSIS: Back abscess. POSTOPERATIVE DIAGNOSIS: Back abscess. PROCEDURE: Incision and drainage of back abscess with debridement. ATTENDING PHYSICIAN: Jameel Mac M.D. ANESTHESIA: General. ESTIMATED BLOOD LOSS: Minimal, less than 20 mL. FLUIDS: 200 mL. FINDINGS: The patient had extensive infection in the subcutaneous tissue that tracked in multiple directions in the subcutaneous layer. It did not involve the fascia. Skin was involved full thickness. Some parts of liquefactive necrosis were also seen in subcutaneous tissue. SPECIMENS: Culture swabs were taken. DRAINS: None. COMPLICATIONS: None. DISPOSITION: Stable, transferred to Recovery Room. INDICATIONS: This is a 43-year-old male who presented to the Emergency Department with 4-day history of progressively worsening back pain. The patient was assessed to have an abscess. Initial incision and drainage was done in the Emergency Department. General Surgery was consulted. The patient was assessed the need for formal incision and drainage as well as debridement. Procedure, risks and benefits were explained to the patient. Risks included but were not limited to infection, bleeding, pain, injury to surrounding structures, possible need for further surgery in the future. The patient understood and consented. OPERATIVE NOTE: The patient was brought to the operating room and placed on the table in supine position. After adequate general anesthesia was established, the patient was placed in left lateral decubitus position. Pressure points were padded. Beanbag was used to maintain stability. Sterile prep and drape was performed. Antibiotics were given. SCDs were in place. Time-out was called. I began by probing the wound. Initially, it did not appear that the wound went anywhere; however, I found a weak spot in the center and we were able to enter the abscess cavity that was in the subcutaneous layer. Probing the wound and then using that as a guide, I opened up the wound in a cruciate manner as far as the cavity limits were taken ultimately in order to allow for adequate dressing changes and wound care. I ended up excising the corners of the cruciate incision, so that essentially we ended up with a large alturas. The skin itself was extensively involved with infection, so I thought this was helpful as well to get rid of that infection. As I was probing the wound, I found other areas that we followed. Ultimately, we ended up finding a lot of liquefactive necrosis of the subcutaneous tissue, all of which I excised. I kept excising the subcutaneous tissue that was infected and necrotic all the way back to healthy tissue all the way around. Once we reached this point, we thoroughly irrigated out the wound. Hemostasis was achieved with electrocautery. I injected the surrounding tissues with 0.5% Marcaine and 1% lidocaine mix. We did one final check. We compressed all the surrounding areas to see if we could find any more purulent fluid draining. Please note that once we initially entered the abscess cavity and found the purulent material, culture swabs were taken. Once we assured that we had good hemostasis, wound was packed with Dakin's-soaked Kerlix roll. Skin was cleaned and dried. Dressings were placed. The patient tolerated the procedure well. There were no complications. All counts were correct at the end of the case. JOB# [id number] INNA/MARÍA
[2019-04-25] MEDS: NEURONTIN PO SCH ×3 (05:39→21:38)
[2019-04-25] MEDS: APRESOLINE PO SCH ×3 (05:39→21:38)
[2019-04-25] MEDS: HEPARIN SUB-Q SCH ×3 (05:39→21:39)
[2019-04-25] MEDS: DILAUDID IV PRN ×3 (05:39→20:12)
[2019-04-25] MEDS: SODIUM CHLORIDE FLUSH SYRINGE 10 ML IV PRN (05:46)
[2019-04-25 06:16] LABS: Calcium 8.4 mg/dL (8.4-10.2)
--- NOTE | 2019-04-25 08:51 | Progress Note ---
Assessment and Plan - Patient Problems (1) SHERLY (acute kidney injury) Current Visit: No Status: Acute Plan to address problem: Prerenal azotemia versus acute tubular necrosis secondary to sepsis. I also suspect superimposed NSAID induced nephropathy with a long-standing use of Advil. Get kidney ultrasound. QUANTIFY PROTEINURIA. GENTLE VOLUME REPLETION. FOLLOW UP ELECTROLYTES AND RENAL FUNCTION. (2) Chronic kidney disease, stage III (moderate) Current Visit: Yes Status: Acute Plan to address problem: Chronic kidney disease presumably secondary to diabetic nephropathy/hypertensive nephrosclerosis. Baseline kidney function unknown (3) Proteinuria Current Visit: Yes Status: Acute Plan to address problem: Suggests diabetic nephropathy. Quantify proteinuria. Will benefit from GREGORIO inhibitor/angiotensin receptor linus long-term. Will challenge when kidney function stabilizes. (4) Abscess of back Current Visit: Yes Status: Acute Plan to address problem: Incision and drainage done by surgeon. Continue antibiotics. Follow up blood and wound culture (5) Type 2 diabetes mellitus with diabetic nephropathy Current Visit: Yes Status: Acute Plan to address problem: Blood sugar control by primary attending. (6) Hypertensive chronic kidney disease with stage 1 through stage 4 chronic kidney disease, or unspecified chronic kidney disease Current Visit: Yes Status: Acute Plan to address problem: Follow blood pressure on current medications Subjective Date of service: 04/25/19 Principal diagnosis: acute kidney injury superimposed on chronic kidney disease. Interval history: I had a rough night. "Pain". The pain medication helps but it wears off before the next dose Objective - Exam Narrative Exam: Heavily built Middle-aged -Maur[place] male lying in bed in no acute distress HEENT: NCAT, pink oral mucous membrane Neck: Supple, no venous distention CVS: S1S2 RRR with no murmur, rub or gallop Chest: Clear to auscultation Abdomen: Protuberant, soft, nontender, no organomegaly, bowel sounds are present Extremities: No edema Dressing in his upper back clean and dry, Genitourinary deferred Neuro: Awake, alert no focal deficits - Vital Signs Vital signs: Vital Signs - 12hr 04/24/19 04/24/19 04/24/19 21:54 21:56 21:58 Temperature Pulse Rate 105 H Respiratory 20 20 Rate Blood Pressure 151/97 O2 Sat by Pulse Oximetry 04/25/19 04/25/19 04/25/19 00:20 00:22 04:35 Temperature 99.3 F Pulse Rate 94 H 95 H Respiratory 20 20 Rate Blood Pressure 111/55 177/93 O2 Sat by Pulse 94 93 Oximetry 04/25/19 04/25/19 04:37 05:39 Temperature 99.8 F H Pulse Rate Respiratory 18 Rate Blood Pressure O2 Sat by Pulse Oximetry - Lab 04/24/19 05:18 04/25/19 05:24 Most recent lab results Calcium 8.4 mg/dL (8.4-10.2) 04/25/19 05:24 Phosphorus 2.40 mg/dL (2.5-4.5) L 04/25/19 05:24 Medications & Allergies - Medications Allergies/Adverse Reactions: Allergies acetaminophen [From Percocet] Adverse Reaction (Mild, Verified 04/24/19 15:52) Itching oxycodone [From Percocet] Adverse Reaction (Mild, Verified 04/24/19 15:52) Itching Home Medications: Home Medications Medication Instructions Recorded Confirmed Last Taken Type Insulin NPH/Regular [NovoLIN 70/30] 50 unit SUB-Q AC #3 vial 04/20/18 12/06/18 Unknown Rx Pravastatin [Pravachol] 20 mg PO QHS #30 tablet 04/20/18 12/06/18 Unknown Rx cloNIDine [Catapres] 0.2 mg PO BID #60 tablet 04/20/18 12/06/18 Unknown Rx traMADol [Ultram 50 MG tab] 50 mg PO Q6HR PRN #20 tablet 09/16/18 12/06/18 Unknown Rx Amlodipine Besylate [Norvasc] 10 mg PO DAILY 12/06/18 12/06/18 Unknown History Furosemide [Lasix TAB] 40 mg PO QDAY 12/06/18 12/06/18 Unknown History Gabapentin [Neurontin] 300 mg PO Q8HR 12/06/18 12/06/18 Unknown History hydrALAZINE [Apresoline TAB] 50 mg PO Q8HR 12/06/18 12/06/18 Unknown History Insulin Regular, Human [HumuLIN R] 10 units SUB-Q AC 30 Days units 04/25/19 Unknown Rx hydrALAZINE [Apresoline TAB] 100 mg PO Q8HR #90 tab 04/25/19 Unknown Rx Active Medications: Generic Name Dose Route Start Last Admin Trade Name Freq PRN Reason Stop Dose Admin Acetaminophen 650 mg 04/23/19 00:22 04/24/19 21:54 Tylenol PO 650 mg Q4H PRN Administration Pain MILD(1-3)/Fever >100.5/KINNEY Amlodipine Besylate 10 mg 04/23/19 10:00 04/24/19 14:09 Norvasc PO Not Given QDAY BARRY Clonidine HCl 0.2 mg 04/23/19 02:00 04/24/19 21:56 Catapres PO 0.2 mg Q12HR BARRY Administration Dextrose 50 ml 04/23/19 01:18 D50w (25gm) Syringe IV PRN PRN Hypoglycemia Docusate Sodium 100 mg 04/23/19 10:00 04/24/19 21:55 Colace PO 100 mg BID BARRY Administration Fentanyl 50 mcg 04/24/19 08:39 Sublimaze IV Q5MIN PRN Pain , Severe (7-10) Furosemide 40 mg 04/23/19 14:00 04/24/19 12:43 Lasix PO 40 mg QDAY BARRY Administration Gabapentin 300 mg 04/23/19 14:00 04/25/19 05:39 Neurontin PO 300 mg Q8HR BARRY Administration Heparin Sodium (Porcine) 5,000 unit 04/23/19 06:00 04/25/19 05:39 Heparin SUB-Q 5,000 unit Q8HR BARRY Administration Hydralazine HCl 10 mg 04/23/19 01:23 Apresoline IV Q4H PRN Blood Pressure Hydralazine HCl 100 mg 04/23/19 14:00 04/25/19 05:39 Apresoline PO 100 mg Q8HR BARRY Administration Hydromorphone HCl 1 mg 04/23/19 00:22 04/25/19 05:39 Dilaudid IV 1 mg Q3H PRN Administration Pain , Severe (7-10) Sodium Chloride 1,000 mls @ 100 mls/hr 04/23/19 01:00 04/24/19 22:02 Nacl 0.9% 1000 Ml IV 100 mls/hr DIRECT BARRY Administration Vancomycin HCl 2,000 mg/ 540 mls @ 250 mls/hr 04/25/19 18:00 Sodium Chloride IV Q24H BARRY Insulin Glargine 30 units 04/23/19 14:00 04/24/19 21:57 Lantus SUB-Q 30 units BID BARRY Administration Insulin Human Lispro 0 unit 04/23/19 07:30 04/24/19 21:57 Humalog SUB-Q 3 unit ACHS BARRY Administration Protocol Insulin Human Regular 10 units 04/23/19 16:30 04/24/19 16:30 Humulin R SUB-Q 10 units AC BARRY Administration Ondansetron HCl 4 mg 04/23/19 00:22 Zofran IV Q8H PRN Nausea And Vomiting Ondansetron HCl 4 mg 04/24/19 08:39 Zofran IV ONCE PRN Nausea And Vomiting Oxycodone/Acetaminophen 1 tab 04/23/19 00:22 Percocet 5/325 PO Q4H PRN Pain, Moderate (4-6) Pravastatin Sodium 20 mg 04/23/19 22:00 04/24/19 21:55 Pravachol PO 20 mg QHS BARRY Administration Sodium Chloride 10 ml 04/23/19 10:00 04/24/19 21:57 Sodium Chloride Flush Syringe 10 Ml IV 10 ml BID BARRY Administration Sodium Chloride 10 ml 04/23/19 00:22 04/25/19 05:46 Sodium Chloride Flush Syringe 10 Ml IV 10 ml PRN PRN Administration LINE FLUSH Zolpidem Tartrate 5 mg 04/23/19 00:22 Ambien PO QHS PRN Insomnia
[2019-04-25] MEDS: HumuLIN R SUB-Q SCH ×3 (09:33→18:00)
[2019-04-25] MEDS: LANTUS SUB-Q SCH ×2 (10:35→21:38)
[2019-04-25] MEDS: LASIX PO SCH (10:38)
[2019-04-25] MEDS: NORVASC PO SCH (10:38)
--- NOTE | 2019-04-25 10:45 | Progress Note ---
Assessment and Plan Cultures: 04/22/2019 blood culture: MRSA 1 of 4 bottles 04/22/2019 wound culture: MRSA 04/23/2019 blood culture: no growth 04/24/2019 surgical culture: MRSA A/P: 43-year-old male with diabetes mellitus type 1, hypertension, hyperlipidemia admitted with: 1) Sepsis: secondary to MRSA bacteremia, source is right upper back abscess, status post I&D in the OR on 04/24/2019. 2) Diabetes mellitus type 1, uncontrolled with hyperglycemia 3) Acute kidney injury on CKD: renally dose abx. Recs: TTE ordered - pending Continue IV Vancomycin, target trough: 10-20 mcg/ml Continue wound care and tight glycemic control contact isolation for MRSA abscess At discharge will do IV vancomcyin 2 gm every 24 hour total 14 days until 05/08/2019. Keep Vancomycin, target trough: 10-20 mcg/ml. If endocarditis will do [address] PICC today Monitor creatinine Will follow Luz Maria Aldridge MD Infectious Diseases [employer] [facility] ([facility]) M [phone] O [phone] Subjective Date of service: 04/25/19 Principal diagnosis: acute kidney injury superimposed on chronic kidney disease. Interval history: Patient feels better, no fever for 36 hours, still surg site pain. Objective - Exam Narrative Exam: General: Alert, cooperative. No acute distress Head, Ears, Nose: Normocephalic, atraumatic. External ears, nose normal Eyes: Conjunctivae/corneas clear. No icterus. No ptosis. Neck: Supple, no meningeal signs Oral: no thrush Cardiovascular:RRR Respiratory: Good air entry, clear to auscultation bilaterally GI: Soft, non-tender; bowel sounds normal. No peritoneal signs Musculoskeletal: No pedal edema, no cyanosis. Right upper back surgical wound packed with minimal purulence. Skin: No rash or abscess Hem/Lymphatic: No palpable cervical or supraclavicular nodes. No lymphangitis Psych: Mood ok. Affect normal Neurological: Awake, alert, oriented. No gross abnormality - Constitutional Vitals: Vital Signs Temp Pulse Resp BP Pulse Ox 97.5 F L 95 H 18 189/104 93 04/25/19 09:02 04/25/19 04:35 04/25/19 09:02 04/25/19 09:02 04/25/19 04:35 Temperature -Last 24 Hours Temperature 97.5 F Temperature 99.8 F Temperature 99.3 F Temperature 99.1 F Temperature 97.8 F - Labs CBC & Chem 7: 04/24/19 05:18 04/25/19 05:24 Labs: Abnormal lab results 04/24/19 04/24/19 04/24/19 Range/Units 11:49 17:03 21:16 Creatinine (0.8-1.5) mg/dL Glucose (75-100) mg/dL POC Glucose 216 H 152 H 221 H (70-105) Phosphorus (2.5-4.5) mg/dL 04/25/19 04/25/19 Range/Units 05:24 09:06 Creatinine 2.5 H (0.8-1.5) mg/dL Glucose 189 H (75-100) mg/dL POC Glucose 167 H (70-105) Phosphorus 2.40 L (2.5-4.5) mg/dL
--- NOTE | 2019-04-25 11:16 | Ultrasound Report ---
ULTRASOUND RENAL INDICATION / CLINICAL INFORMATION: Acute kidney injury. Allergic reaction to bee sting COMPARISON: None available. FINDINGS: RIGHT KIDNEY: Length = 11.9 cm. [normal > 9 cm] - Parenchymal Thickness = 2.0 cm. [normal > 1.5 cm] - Echogenicity: Slightly increased - Hydronephrosis: None. - Cyst or mass: No significant abnormality. - Stones: None seen. LEFT KIDNEY: Length = 11.8 cm. [normal > 9 cm] - Parenchymal Thickness = 2.2 cm. [normal > 1.5 cm] - Echogenicity: Likely increased - Hydronephrosis: None. - Cyst or mass: A 1.7 x 1.6 cm simple cyst is noted in the superior right kidney. - Stones: None seen. URINARY BLADDER: No significant abnormality. FREE FLUID: None. ADDITIONAL FINDINGS: None. IMPRESSION: Slightly echogenic kidneys consistent with nonspecific renal parenchymal disease. Simple right renal cyst. Signer Name: Issac Schneider Jr, MD Signed: 04/25/2019 11:12 AM Workstation Name: [id number]
[2019-04-25] MEDS: HumaLOG SUB-Q SCH ×4 (11:32→21:45)
[2019-04-25] MEDS: CATAPRES PO SCH ×2 (11:33→21:38)
[2019-04-25] MEDS: COLACE PO SCH ×2 (11:34→21:38)
[2019-04-25] MEDS: SODIUM CHLORIDE FLUSH SYRINGE 10 ML IV SCH ×2 (11:38→21:38)
[2019-04-25] MEDS: APRESOLINE IV PRN (12:05)
[2019-04-25] MEDS: TYLENOL PO PRN ×2 (12:15→21:37)
[2019-04-25] MEDS: PERCOCET 5/325 PO PRN (12:20)
--- NOTE | 2019-04-25 15:33 | Progress Note ---
Assessment and Plan - Patient Problems (1) Complicated abscess Current Visit: Yes Status: Acute Plan to address problem: Pt stable. s/p I&D of back abscess - 04/24/19 - POD#1. Pt doing better. Wound vac placed by ROBELON. Rec: 1) Ok to d/c home once home wound vac set up and arrangements made for out-pt Iv Abx. 2) f/u in wound clinic in 1 week 3) HH for wound vac care Please call with questions. Subjective Date of service: 04/25/19 Patient Reports: Positive: no new complaints, feels better, pain is less Objective Vital Signs - 12hr 04/25/19 04/25/19 04/25/19 04:35 04:37 05:39 Temperature 99.8 F H Pulse Rate 95 H Respiratory 20 18 Rate Blood Pressure 177/93 O2 Sat by Pulse 93 Oximetry 04/25/19 04/25/19 09:02 11:47 Temperature 97.5 F L 100.0 F H Pulse Rate Respiratory 18 18 Rate Blood Pressure 189/104 170/91 O2 Sat by Pulse Oximetry - General physical appearance no distress, no pain - Eyes normal occular movement - Integumentary other (wound vac in place) - Psychiatric oriented to time, oriented to person, oriented to place, speech is normal, memory intact - Labs 04/24/19 05:18 04/25/19 05:24 Diabetes panel 04/25/19 Range/Units 05:24 Sodium 137 (137-145) mmol/L Potassium 4.1 (3.6-5.0) mmol/L Chloride 103.5 (98-107) mmol/L Carbon Dioxide 23 (22-30) mmol/L BUN 19 (9-20) mg/dL Creatinine 2.5 H (0.8-1.5) mg/dL Glucose 189 H (75-100) mg/dL Calcium 8.4 (8.4-10.2) mg/dL Calcium panel 04/25/19 Range/Units 05:24 Calcium 8.4 (8.4-10.2) mg/dL Phosphorus 2.40 L (2.5-4.5) mg/dL Pituitary panel 04/25/19 Range/Units 05:24 Sodium 137 (137-145) mmol/L Potassium 4.1 (3.6-5.0) mmol/L Chloride 103.5 (98-107) mmol/L Carbon Dioxide 23 (22-30) mmol/L BUN 19 (9-20) mg/dL Creatinine 2.5 H (0.8-1.5) mg/dL Glucose 189 H (75-100) mg/dL Calcium 8.4 (8.4-10.2) mg/dL Adrenal panel 04/25/19 Range/Units 05:24 Sodium 137 (137-145) mmol/L Potassium 4.1 (3.6-5.0) mmol/L Chloride 103.5 (98-107) mmol/L Carbon Dioxide 23 (22-30) mmol/L BUN 19 (9-20) mg/dL Creatinine 2.5 H (0.8-1.5) mg/dL Glucose 189 H (75-100) mg/dL Calcium 8.4 (8.4-10.2) mg/dL
[2019-04-25] MEDS: VANCOMYCIN 2,000 MG in NACL 0.9% 500 ML 500 ML IV SCH (18:09)
--- NOTE | 2019-04-25 18:38 | Progress Note ---
Assessment and Plan Assessment and plan: Patient is a 43-year-old -German male with history of spinal meningitis, hypelipdemia DM1 we'll presented to the ED on an account of possibly a bee sting on the right side of his upper back about 4 days ago. Today, he started experiencing severe pain on the site, which prompted him to come to the ED for further evaluation. He has associated fever with chills and headaches. He also has positive history of bilateral leg swelling. He denied chest pain, shortness of breath, PND, orthopnea, cough, nausea, vomiting, lightheadedness, syncope or loss of consciousness. Past Surgical History: hernia repair, Other (incision and drainage of abscess on the upper back, spinal surgery) Sepsis secondary to skin abscess -On IV broad-spectrum antibiotics with Vanc and Zosyn -Blood cultures pending - Patient underwent ID for complex abscess - Doing well POD 1. Wound vac in place and will need on discharge, CAN BE DISCHARGED ONCE WOUND VAC ARRANGED - Advised to follow with Wound clinic in one week - Awaiting Echo to rule out endocarditis -Abx per ID. PICC line consulted per ID recommendation Hypertensive urgency -On antihypertensives, adjust as needed -Adjust Hydralazin to 100mg PO q 8hrs DM1 with hyperglycemia -On Lantus and SSI -Hba1c 13.7 -Counselling -Adjust insulin upwards for better control, considering infection Acute on CKD stage III - nephrology input noted, likely new baseline. Hyponatremia -Resolved Metabolic acidosis -Secondary to the hyperglycemia -On IV fluid, will monitor bicarbonate level Diabetic neuropathy -Resume gabapentin Hyperlipidemia -Resume statin Elevated alkaline phosphatase -We will monitor level Chronic diastolic heart failure with EF of 49% -No acute exacerbation DVT prophylaxis with heparin History Interval history: Patient seen and examined, No new complaints, still some intermittent low grade fever Hospitalist Physical - Physical exam Narrative exam: VITAL SIGNS: Reviewed. GENERAL: The patient appeared normally developed, Vital signs as documented. HEAD: No signs of head trauma. EYES: Pupils are equal. Extraocular motions intact. EARS: Hearing grossly intact. MOUTH: Oropharynx is normal. NECK: No adenopathy, no JVD. CHEST: Chest with clear breath sounds bilaterally. No wheezes, rales, or rhonchi. CARDIAC: Regular rate and rhythm. S1 and S2, without murmurs, gallops, or rubs. VASCULAR: No Edema. Peripheral pulses normal and equal in all extremities. ABDOMEN: Soft, non tender and non distended. No rebound or guarding, and no masses palpated. Bowel Sounds normal. MUSCULOSKELETAL: Good range of motion of all major joints. Extremities without clubbing, cyanosis or edema. NEUROLOGIC EXAM: Alert and oriented x 3 No focal sensory or strength deficits. Speech normal. Follows commands. PSYCHIATRIC: Mood normal. SKIN: Posterior back dressing in place and not visualized by me but see surgical documentation for wound description - Constitutional Vitals: Temp Pulse Resp BP Pulse Ox 100.0 F H 67 18 170/91 93 04/25/19 11:47 04/25/19 16:00 04/25/19 11:47 04/25/19 11:47 04/25/19 04:35 General appearance: Present: no acute distress, obese Results - Labs CBC & Chem 7: 04/24/19 05:18 04/25/19 05:24 Labs: Laboratory Last Values WBC 18.8 K/mm3 (4.5-11.0) H 04/24/19 05:18 RBC 4.62 M/mm3 (3.65-5.03) 04/24/19 05:18 Hgb 12.0 gm/dl (11.8-15.2) 04/24/19 05:18 Hct 36.9 % (35.5-45.6) 04/24/19 05:18 MCV 80 fl (84-94) L 04/24/19 05:18 MCH 26 pg (28-32) L 04/24/19 05:18 MCHC 33 % (32-34) 04/24/19 05:18 RDW 14.5 % (13.2-15.2) 04/24/19 05:18 Plt Count 219 K/mm3 (140-440) 04/24/19 05:18 Lymph % (Auto) 8.1 % (13.4-35.0) L 04/24/19 05:18 Bertie % (Auto) 12.2 % (0.0-7.3) H 04/24/19 05:18 Eos % (Auto) 0.3 % (0.0-4.3) 04/24/19 05:18 Baso % (Auto) 0.5 % (0.0-1.8) 04/24/19 05:18 Lymph # 1.5 K/mm3 (1.2-5.4) 04/24/19 05:18 Bertie # 2.3 K/mm3 (0.0-0.8) H 04/24/19 05:18 Eos # 0.1 K/mm3 (0.0-0.4) 04/24/19 05:18 Baso # 0.1 K/mm3 (0.0-0.1) 04/24/19 05:18 Seg Neutrophils % 78.9 % (40.0-70.0) H 04/24/19 05:18 Seg Neutrophils # 14.8 K/mm3 (1.8-7.7) H 04/24/19 05:18 Sodium 137 mmol/L (137-145) 04/25/19 05:24 Potassium 4.1 mmol/L (3.6-5.0) 04/25/19 05:24 Chloride 103.5 mmol/L (98-107) 04/25/19 05:24 Carbon Dioxide 23 mmol/L (22-30) 04/25/19 05:24 15 mmol/L 04/25/19 05:24 BUN 19 mg/dL (9-20) 04/25/19 05:24 2.5 mg/dL (0.8-1.5) H 04/25/19 05:24 Estimated GFR 34 ml/min 04/25/19 05:24 8 % 04/25/19 05:24 Glucose 189 mg/dL (75-100) H 04/25/19 05:24 POC Glucose 128 (70-105) H 04/25/19 17:41 13.7 % (4-6) H 04/23/19 04:17 Lactic Acid 0.90 mmol/L (0.7-2.0) 04/22/19 21:16 Calcium 8.4 mg/dL (8.4-10.2) 04/25/19 05:24 Phosphorus 2.40 mg/dL (2.5-4.5) L 04/25/19 05:24 0.70 mg/dL (0.1-1.2) 04/24/19 05:18 < 0.2 mg/dL (0-0.2) 04/24/19 05:18 0.5 mg/dL 04/24/19 05:18 AST 19 units/L (5-40) 04/24/19 05:18 ALT 13 units/L (7-56) 04/24/19 05:18 153 units/L (35-129) H 04/24/19 05:18 7.8 g/dL (6.3-8.2) 04/24/19 05:18 2.9 g/dL (3.9-5) L 04/24/19 05:18 0.6 % 04/24/19 05:18 Straw (Yellow) 04/22/19 04:54 Clear (Clear) 04/22/19 04:54 5.0 (5.0-7.0) 04/22/19 04:54 Ur Specific [place] 1.017 (1.003-1.030) 04/22/19 04:54 >500 mg/dL (Negative) 04/22/19 04:54 >=500 mg/dL (Negative) 04/22/19 04:54 Tr mg/dL (Negative) 04/22/19 04:54 Sm (Negative) 04/22/19 04:54 Neg (Negative) 04/22/19 04:54 Neg (Negative) 04/22/19 04:54 < 2.0 mg/dL (<2.0) 04/22/19 04:54 Ur Leukocyte Esterase Neg (Negative) 04/22/19 04:54 < 1.0 /HPF (0.0-6.0) 04/22/19 04:54 4.0 /HPF (0.0-6.0) 04/22/19 04:54 U Epithel Cells (Auto) < 1.0 /HPF (0-13.0) 04/22/19 04:54 1+ /HPF (Negative) 04/22/19 04:54 Amorphous Crystals Few 04/22/19 04:54 Few /HPF 04/22/19 04:54 Random Vancomycin 6.3 ug/mL (0-40.0) 04/24/19 05:18 Active Medications - Current Medications Current Medications: Generic Name Dose Route Start Last Admin Trade Name Freq PRN Reason Stop Dose Admin Acetaminophen 650 mg 04/23/19 00:22 04/25/19 12:15 Tylenol PO 650 mg Q4H PRN Administration Pain MILD(1-3)/Fever >100.5/KINNEY Amlodipine Besylate 10 mg 04/23/19 10:00 04/25/19 10:38 Norvasc PO 10 mg QDAY BARRY Administration Clonidine HCl 0.2 mg 04/23/19 02:00 04/25/19 11:33 Catapres PO 0.2 mg Q12HR BARRY Administration Dextrose 50 ml 04/23/19 01:18 D50w (25gm) Syringe IV PRN PRN Hypoglycemia Docusate Sodium 100 mg 04/23/19 10:00 04/25/19 11:34 Colace PO 100 mg BID BARRY Administration Furosemide 40 mg 04/23/19 14:00 04/25/19 10:38 Lasix PO 40 mg QDAY BARRY Administration Gabapentin 300 mg 04/23/19 14:00 04/25/19 13:41 Neurontin PO 300 mg Q8HR BARRY Administration Heparin Sodium (Porcine) 5,000 unit 04/23/19 06:00 04/25/19 13:41 Heparin SUB-Q 5,000 unit Q8HR BARRY Administration Hydralazine HCl 10 mg 04/23/19 01:23 04/25/19 12:05 Apresoline IV 10 mg Q4H PRN Administration Blood Pressure Hydralazine HCl 100 mg 04/23/19 14:00 04/25/19 13:41 Apresoline PO 100 mg Q8HR BARRY Administration Hydromorphone HCl 1 mg 04/23/19 00:22 04/25/19 13:42 Dilaudid IV 1 mg Q3H PRN Administration Pain , Severe (7-10) Sodium Chloride 1,000 mls @ 100 mls/hr 04/23/19 01:00 04/24/19 22:02 Nacl 0.9% 1000 Ml IV 100 mls/hr DIRECT BARRY Administration Vancomycin HCl 2,000 mg/ 540 mls @ 250 mls/hr 04/25/19 18:00 04/25/19 18:09 Sodium Chloride IV 250 mls/hr Q24H BARRY Administration Insulin Glargine 30 units 04/23/19 14:00 04/25/19 10:35 Lantus SUB-Q 30 units BID BARRY Administration Insulin Human Lispro 0 unit 04/23/19 07:30 04/25/19 18:09 [facility]Q [facility] Protocol Insulin Human Regular 10 units 04/23/19 16:30 04/25/19 18:00 Humulin R SUB-Q 10 units AC BARRY Administration Ondansetron HCl 4 mg 04/23/19 00:22 Zofran IV Q8H PRN Nausea And Vomiting Oxycodone/Acetaminophen 1 tab 04/23/19 00:22 04/25/19 12:20 Percocet 5/325 PO 1 tab Q4H PRN Administration Pain, Moderate (4-6) Pravastatin Sodium 20 mg 04/23/19 22:00 04/24/19 21:55 Pravachol PO 20 mg QHS BARRY Administration Sodium Chloride 10 ml 04/23/19 10:00 04/25/19 11:38 Sodium Chloride Flush Syringe 10 Ml IV 10 ml BID BARRY Administration Sodium Chloride 10 ml 04/23/19 00:22 04/25/19 05:46 Sodium Chloride Flush Syringe 10 Ml IV 10 ml PRN PRN Administration LINE FLUSH Zolpidem Tartrate 5 mg 04/23/19 00:22 Ambien PO QHS PRN Insomnia
[2019-04-25] MEDS: PRAVACHOL PO SCH (21:38)
[2019-04-26] MEDS: DILAUDID IV PRN ×4 (04:44→20:33)
[2019-04-26] MEDS: APRESOLINE PO SCH ×4 (04:45→21:58)
[2019-04-26] MEDS: NEURONTIN PO SCH ×4 (04:46→21:58)
[2019-04-26] MEDS: HEPARIN SUB-Q SCH ×4 (04:46→22:00)
--- NOTE | 2019-04-26 08:37 | Progress Note ---
Assessment and Plan - Patient Problems (1) SHERLY (acute kidney injury) Current Visit: No Status: Acute Plan to address problem: Prerenal azotemia versus acute tubular necrosis secondary to sepsis. I also suspect superimposed NSAID induced nephropathy with a long-standing use of Advil. Continue volume repletion. Follow-up electrolytes and renal function. (2) Chronic kidney disease, stage III (moderate) Current Visit: Yes Status: Acute Plan to address problem: Chronic kidney disease presumably secondary to diabetic nephropathy/hypertensive nephrosclerosis. Baseline kidney function unknown (3) Proteinuria Current Visit: Yes Status: Acute Plan to address problem: Suggests diabetic nephropathy. Quantify proteinuria. Will benefit from GREGORIO inhibitor/angiotensin receptor linus long-term. Will challenge when kidney function stabilizes. (4) Abscess of back Current Visit: Yes Status: Acute Plan to address problem: Incision and drainage done by surgeon. Cultures growing MRSA. Continue antibiotics. Discharge antibiotics being arranged by Infectious disease (5) Type 2 diabetes mellitus with diabetic nephropathy Current Visit: Yes Status: Acute Plan to address problem: Blood sugar control by primary attending. (6) Hypertensive chronic kidney disease with stage 1 through stage 4 chronic kidney disease, or unspecified chronic kidney disease Current Visit: Yes Status: Acute Plan to address problem: Follow blood pressure on current medications Subjective Date of service: 04/26/19 Principal diagnosis: acute kidney injury superimposed on chronic kidney disease. Interval history: Patient seen lying in bed. Had a better night. No nausea or vomiting. Pain control a bit better though still has breakthrough Objective - Exam Narrative Exam: Heavily built Middle-aged -Syrian male lying in bed in no acute distress HEENT: NCAT, pink oral mucous membrane Neck: Supple, no venous distention CVS: S1S2 RRR with no murmur, rub or gallop Chest: Clear to auscultation Abdomen: Protuberant, soft, nontender, no organomegaly, bowel sounds are present Extremities: No edema Dressing in his upper back clean and dry, Genitourinary deferred Neuro: Awake, alert no focal deficits - Vital Signs Vital signs: Vital Signs - 12hr 04/25/19 04/25/19 04/26/19 23:14 23:20 04:57 Temperature 98.8 F 98.8 F Pulse Rate 93 H 108 H 86 Respiratory 20 18 Rate Blood Pressure 128/85 166/97 O2 Sat by Pulse 93 95 Oximetry 04/26/19 04/26/19 07:12 07:16 Temperature 98.7 F 97.5 F L Pulse Rate Respiratory 18 18 Rate Blood Pressure 161/107 155/51 O2 Sat by Pulse Oximetry - Lab 04/26/19 09:17 04/26/19 09:17 Most recent lab results Calcium 8.4 mg/dL (8.4-10.2) 04/25/19 05:24 Phosphorus 2.40 mg/dL (2.5-4.5) L 04/25/19 05:24 Medications & Allergies - Medications Allergies/Adverse Reactions: Allergies acetaminophen [From Percocet] Adverse Reaction (Mild, Verified 04/24/19 15:52) Itching oxycodone [From Percocet] Adverse Reaction (Mild, Verified 04/24/19 15:52) Itching Home Medications: Home Medications Medication Instructions Recorded Confirmed Last Taken Type Insulin NPH/Regular [NovoLIN 70/30] 50 unit SUB-Q AC #3 vial 04/20/18 04/26/19 Unknown Rx Pravastatin [Pravachol] 20 mg PO QHS #30 tablet 04/20/18 04/26/19 Unknown Rx cloNIDine [Catapres] 0.2 mg PO BID #60 tablet 04/20/18 04/26/19 Unknown Rx traMADol [Ultram 50 MG tab] 50 mg PO Q6HR PRN #20 tablet 09/16/18 04/26/19 Unknown Rx Amlodipine Besylate [Norvasc] 10 mg PO DAILY 12/06/18 04/26/19 Unknown History Furosemide [Lasix TAB] 40 mg PO QDAY 12/06/18 04/26/19 Unknown History Gabapentin [Neurontin] 300 mg PO Q8HR 12/06/18 04/26/19 Unknown History hydrALAZINE [Apresoline TAB] 50 mg PO Q8HR 12/06/18 04/26/19 Unknown History Insulin Regular, Human [HumuLIN R] 10 units SUB-Q AC 30 Days units 04/25/19 Unknown Rx hydrALAZINE [Apresoline TAB] 100 mg PO Q8HR #90 tab 04/25/19 Unknown Rx Active Medications: Generic Name Dose Route Start Last Admin Trade Name Freq PRN Reason Stop Dose Admin Acetaminophen 650 mg 04/23/19 00:22 04/25/19 21:37 Tylenol PO 650 mg Q4H PRN Administration Pain MILD(1-3)/Fever >100.5/KINNEY Amlodipine Besylate 10 mg 04/23/19 10:00 04/25/19 10:38 Norvasc PO 10 mg QDAY BARRY Administration Clonidine HCl 0.2 mg 04/23/19 02:00 04/25/19 21:38 Catapres PO 0.2 mg Q12HR BARRY Administration Dextrose 50 ml 04/23/19 01:18 D50w (25gm) Syringe IV PRN PRN Hypoglycemia Docusate Sodium 100 mg 04/23/19 10:00 04/25/19 21:38 Colace PO 100 mg BID BARRY Administration Furosemide 40 mg 04/23/19 14:00 04/25/19 10:38 Lasix PO 40 mg QDAY BARRY Administration Gabapentin 300 mg 04/23/19 14:00 04/26/19 05:15 Neurontin PO Not Given Q8HR BARRY Heparin Sodium (Porcine) 5,000 unit 04/23/19 06:00 04/26/19 05:15 Heparin SUB-Q Not Given Q8HR [facility] Hydralazine HCl 10 mg 04/23/19 01:23 04/25/19 12:05 Apresoline IV 10 mg Q4H PRN Administration Blood Pressure Hydralazine HCl 100 mg 04/23/19 14:00 04/26/19 05:15 Apresoline PO Not Given Q8HR [facility] Hydromorphone HCl 1 mg 04/23/19 00:22 04/26/19 04:44 Dilaudid IV 1 mg Q3H PRN Administration Pain , Severe (7-10) Sodium Chloride 1,000 mls @ 100 mls/hr 04/23/19 01:00 04/24/19 22:02 Nacl 0.9% 1000 Ml IV 100 mls/hr DIRECT BARRY Administration Vancomycin HCl 2,000 mg/ 540 mls @ 250 mls/hr 04/25/19 18:00 04/25/19 18:09 Sodium Chloride IV 250 mls/hr Q24H BARRY Administration Insulin Glargine 30 units 04/23/19 14:00 04/25/19 21:38 Lantus SUB-Q 30 units BID BARRY Administration Insulin Human Lispro 0 unit 04/23/19 07:30 04/25/19 21:45 Humalog SUB-Q 3 unit ACHS BARRY Administration Protocol Insulin Human Regular 10 units 04/23/19 16:30 04/25/19 18:00 Humulin R SUB-Q 10 units AC BARRY Administration Ondansetron HCl 4 mg 04/23/19 00:22 Zofran IV Q8H PRN Nausea And Vomiting Pravastatin Sodium 20 mg 04/23/19 22:00 04/25/19 21:38 Pravachol PO 20 mg QHS BARRY Administration Sodium Chloride 10 ml 04/23/19 10:00 04/25/19 21:38 Sodium Chloride Flush Syringe 10 Ml IV 10 ml BID BARRY Administration Sodium Chloride 10 ml 04/23/19 00:22 04/25/19 05:46 Sodium Chloride Flush Syringe 10 Ml IV 10 ml PRN PRN Administration LINE FLUSH Zolpidem Tartrate 5 mg 04/23/19 00:22 Ambien PO QHS PRN Insomnia
[2019-04-26] MEDS: HumuLIN R SUB-Q SCH ×3 (09:14→16:56)
[2019-04-26] MEDS: HumaLOG SUB-Q SCH ×4 (09:15→21:59)
[2019-04-26] MEDS: LANTUS SUB-Q SCH ×2 (09:18→21:59)
[2019-04-26] MEDS: COLACE PO SCH ×2 (09:18→21:58)
[2019-04-26] MEDS: NORVASC PO SCH (09:19)
[2019-04-26] MEDS: LASIX PO SCH (09:19)
[2019-04-26] MEDS: SODIUM CHLORIDE FLUSH SYRINGE 10 ML IV SCH ×2 (09:40→22:00)
[2019-04-26 09:41] LABS: Hematocrit 36.8 % (35.5-45.6); Hemoglobin 12.1 gm/dl (11.8-15.2); Mean Corpuscular HGB Conc 33 % (32-34); Mean Corpuscular Volume 80 fl (84-94); Platelet Count 257 K/mm3 (140-440); Red Blood Count 4.61 M/mm3 (3.65-5.03); Red Cell Distribution Width 14.5 % (13.2-15.2)
--- NOTE | 2019-04-26 09:42 | Progress Note ---
Assessment and Plan Assessment and plan: Patient is a 43-year-old -[place] male with history of spinal meningitis, hypelipdemia DM1 presented to the ED on an account of possibly a bee sting on the right side of his upper back. He started experiencing severe pain on the site, which prompted him to come to the ED for further evaluation. He has associated fever with chills and headaches. He also has positive history of bilateral leg swelling. He denied chest pain, shortness of breath, PND, orthopnea, cough, nausea, vomiting, lightheadedness, syncope or loss of consciousness. Past Surgical History: hernia repair, Other (incision and drainage of abscess on the upper back, spinal surgery) Sepsis secondary to skin abscess -On IV broad-spectrum antibiotics with Vanc and Zosyn -Blood cultures pending - Patient underwent ID for complex abscess - Doing well Wound vac in place and will need on discharge, CAN BE DISCHARGED ONCE WOUND VAC ARRANGED - Advised to follow with Wound clinic in one week - Awaiting Echo to rule out endocarditis -Abx per ID. PICC line consulted per ID recommendation Hypertensive urgency -On antihypertensives, adjust as needed -Adjust Hydralazin to 100mg PO q 8hrs DM1 with hyperglycemia -On Lantus and SSI -Hba1c 13.7 -Counselling -Adjust insulin upwards for better control, considering infection Acute on CKD stage III - nephrology input noted, likely new baseline. Hyponatremia -Resolved Metabolic acidosis -Secondary to the hyperglycemia -On IV fluid, will monitor bicarbonate level Diabetic neuropathy -Resume gabapentin Hyperlipidemia -Resume statin Elevated alkaline phosphatase -We will monitor level Chronic diastolic heart failure with EF of 49% -No acute exacerbation DVT prophylaxis with heparin History Interval history: Feels better Mild pain at surgical site Hospitalist Physical - Physical exam Narrative exam: Gen: Not in acute distress, lying in bed, obese HEENT: Normocephalic, atraumatic Neck: supple, no JVD Heart: S1 and S2 reg, no murmurs, rubs or gallop Lungs: Clear, no crackles or wheeze Abd: soft, non tender, non distended, normal BS Ext: No edema, no clubbing, no cyanosis Neuro:awake,alert, Oriented X 3. No focal signs Psych: Normal mood - Constitutional Vitals: Temp Pulse Resp BP Pulse Ox 97.5 F L 83 18 155/51 95 04/26/19 07:16 04/26/19 09:19 04/26/19 07:16 04/26/19 07:16 04/26/19 04:57 General appearance: Present: no acute distress, obese Results - Labs CBC & Chem 7: 04/27/19 06:14 04/27/19 06:14 Labs: Laboratory Last Values WBC 18.8 K/mm3 (4.5-11.0) H 04/24/19 05:18 RBC 4.62 M/mm3 (3.65-5.03) 04/24/19 05:18 Hgb 12.0 gm/dl (11.8-15.2) 04/24/19 05:18 Hct 36.9 % (35.5-45.6) 04/24/19 05:18 MCV 80 fl (84-94) L 04/24/19 05:18 MCH 26 pg (28-32) L 04/24/19 05:18 MCHC 33 % (32-34) 04/24/19 05:18 RDW 14.5 % (13.2-15.2) 04/24/19 05:18 Plt Count 219 K/mm3 (140-440) 04/24/19 05:18 Lymph % (Auto) 8.1 % (13.4-35.0) L 04/24/19 05:18 Sutter % (Auto) 12.2 % (0.0-7.3) H 04/24/19 05:18 Eos % (Auto) 0.3 % (0.0-4.3) 04/24/19 05:18 Baso % (Auto) 0.5 % (0.0-1.8) 04/24/19 05:18 Lymph # 1.5 K/mm3 (1.2-5.4) 04/24/19 05:18 Sutter # 2.3 K/mm3 (0.0-0.8) H 04/24/19 05:18 Eos # 0.1 K/mm3 (0.0-0.4) 04/24/19 05:18 Baso # 0.1 K/mm3 (0.0-0.1) 04/24/19 05:18 Seg Neutrophils % 78.9 % (40.0-70.0) H 04/24/19 05:18 Seg Neutrophils # 14.8 K/mm3 (1.8-7.7) H 04/24/19 05:18 Sodium 137 mmol/L (137-145) 04/25/19 05:24 Potassium 4.1 mmol/L (3.6-5.0) 04/25/19 05:24 Chloride 103.5 mmol/L (98-107) 04/25/19 05:24 Carbon Dioxide 23 mmol/L (22-30) 04/25/19 05:24 15 mmol/L 04/25/19 05:24 BUN 19 mg/dL (9-20) 04/25/19 05:24 2.5 mg/dL (0.8-1.5) H 04/25/19 05:24 Estimated GFR 34 ml/min 04/25/19 05:24 8 % 04/25/19 05:24 Glucose 189 mg/dL (75-100) H 04/25/19 05:24 POC Glucose 313 (70-105) H 04/26/19 07:16 13.7 % (4-6) H 04/23/19 04:17 Lactic Acid 0.90 mmol/L (0.7-2.0) 04/22/19 21:16 Calcium 8.4 mg/dL (8.4-10.2) 04/25/19 05:24 Phosphorus 2.40 mg/dL (2.5-4.5) L 04/25/19 05:24 0.70 mg/dL (0.1-1.2) 04/24/19 05:18 < 0.2 mg/dL (0-0.2) 04/24/19 05:18 0.5 mg/dL 04/24/19 05:18 AST 19 units/L (5-40) 04/24/19 05:18 ALT 13 units/L (7-56) 04/24/19 05:18 153 units/L (35-129) H 04/24/19 05:18 7.8 g/dL (6.3-8.2) 04/24/19 05:18 2.9 g/dL (3.9-5) L 04/24/19 05:18 0.6 % 04/24/19 05:18 Straw (Yellow) 04/22/19 04:54 Clear (Clear) 04/22/19 04:54 5.0 (5.0-7.0) 04/22/19 04:54 Ur Specific Hazel 1.017 (1.003-1.030) 04/22/19 04:54 >500 mg/dL (Negative) 04/22/19 04:54 >=500 mg/dL (Negative) 04/22/19 04:54 Tr mg/dL (Negative) 04/22/19 04:54 Sm (Negative) 04/22/19 04:54 Neg (Negative) 04/22/19 04:54 Neg (Negative) 04/22/19 04:54 < 2.0 mg/dL (<2.0) 04/22/19 04:54 Ur Leukocyte Esterase Neg (Negative) 04/22/19 04:54 < 1.0 /HPF (0.0-6.0) 04/22/19 04:54 4.0 /HPF (0.0-6.0) 04/22/19 04:54 U Epithel Cells (Auto) < 1.0 /HPF (0-13.0) 04/22/19 04:54 1+ /HPF (Negative) 04/22/19 04:54 Amorphous Crystals Few 04/22/19 04:54 Few /HPF 04/22/19 04:54 Random Vancomycin 6.3 ug/mL (0-40.0) 04/24/19 05:18 Active Medications - Current Medications Current Medications: Generic Name Dose Route Start Last Admin Trade Name Freq PRN Reason Stop Dose Admin Acetaminophen 650 mg 04/23/19 00:22 04/25/19 21:37 Tylenol PO 650 mg Q4H PRN Administration Pain MILD(1-3)/Fever >100.5/KINNEY Amlodipine Besylate 10 mg 04/23/19 10:00 04/26/19 09:19 Norvasc PO 10 mg QDAY BARRY Administration Clonidine HCl 0.2 mg 04/23/19 02:00 04/25/19 21:38 Catapres PO 0.2 mg Q12HR BARRY Administration Dextrose 50 ml 04/23/19 01:18 D50w (25gm) Syringe IV PRN PRN Hypoglycemia Docusate Sodium 100 mg 04/23/19 10:00 04/26/19 09:18 Colace PO 100 mg BID BARRY Administration Furosemide 40 mg 04/23/19 14:00 04/26/19 09:19 Lasix PO 40 mg QDAY BARRY Administration Gabapentin 300 mg 04/23/19 14:00 04/26/19 05:15 Neurontin PO Not Given Q8HR BARRY Heparin Sodium (Porcine) 5,000 unit 04/23/19 06:00 04/26/19 05:15 Heparin SUB-Q Not Given Q8HR BARRY Hydralazine HCl 10 mg 04/23/19 01:23 04/25/19 12:05 Apresoline IV 10 mg Q4H PRN Administration Blood Pressure Hydralazine HCl 100 mg 04/23/19 14:00 04/26/19 05:15 Apresoline PO Not Given Q8HR BARRY Hydromorphone HCl 1 mg 04/23/19 00:22 04/26/19 09:32 Dilaudid IV 1 mg Q3H PRN Administration Pain , Severe (7-10) Sodium Chloride 1,000 mls @ 100 mls/hr 04/23/19 01:00 04/24/19 22:02 Nacl 0.9% 1000 Ml IV 100 mls/hr DIRECT BARRY Administration Vancomycin HCl 2,000 mg/ 540 mls @ 250 mls/hr 04/25/19 18:00 04/25/19 18:09 Sodium Chloride IV 250 mls/hr Q24H BARRY Administration Insulin Glargine 30 units 04/23/19 14:00 04/26/19 09:18 Lantus SUB-Q 30 units BID BARRY Administration Insulin Human Lispro 0 unit 04/23/19 07:30 04/26/19 09:15 Humalog SUB-Q 6 unit ACHS BARRY Administration Protocol Insulin Human Regular 10 units 04/23/19 16:30 04/26/19 09:14 Humulin R SUB-Q 10 units AC BARRY Administration Ondansetron HCl 4 mg 04/23/19 00:22 Zofran IV Q8H PRN Nausea And Vomiting Pravastatin Sodium 20 mg 04/23/19 22:00 04/25/19 21:38 Pravachol PO 20 mg QHS BARRY Administration Sodium Chloride 10 ml 04/23/19 10:00 04/26/19 09:40 Sodium Chloride Flush Syringe 10 Ml IV 10 ml BID BARRY Administration Sodium Chloride 10 ml 04/23/19 00:22 04/25/19 05:46 Sodium Chloride Flush Syringe 10 Ml IV 10 ml PRN PRN Administration LINE FLUSH Zolpidem Tartrate 5 mg 04/23/19 00:22 Ambien PO QHS PRN Insomnia
[2019-04-26] MEDS: CATAPRES PO SCH ×2 (09:45→21:58)
[2019-04-26 10:06] LABS: Calcium 9.1 mg/dL (8.4-10.2)
--- NOTE | 2019-04-26 12:52 | Progress Note ---
Assessment and Plan Cultures: 04/22/2019 blood culture: MRSA 1 of 4 bottles 04/22/2019 wound culture: MRSA 04/23/2019 blood culture: no growth 04/24/2019 surgical culture: MRSA A/P: 43-year-old male with diabetes mellitus type 1, hypertension, hyperlipidemia admitted with: 1) Sepsis: secondary to MRSA bacteremia, source is right upper back abscess, status post I&D in the OR on 04/24/2019. OR culture +MRSA. 2) Diabetes mellitus type 1, uncontrolled with hyperglycemia 3) Acute kidney injury on CKD: renally dose abx. Recs: TTE ordered - pending Continue IV Vancomycin, target trough: 10-20 mcg/ml Continue wound care and tight glycemic control contact isolation for MRSA abscess At discharge will do IV vancomcyin 2 gm every 24 hour total 14 days until 05/08/2019. Keep Vancomycin, target trough: 10-20 mcg/ml. If endocarditis will do 6 weeks. Monitor creatinine Will follow Luz Maria Aldridge MD Infectious Diseases [employer] [facility] ([facility]) M [phone] O [phone] Subjective Date of service: 04/26/19 Principal diagnosis: acute kidney injury superimposed on chronic kidney disease. Interval history: Patient feels better, tmax 102.3 last night. Objective - Exam Narrative Exam: General: Alert, cooperative. No acute distress Head, Ears, Nose: Normocephalic, atraumatic. External ears, nose normal Eyes: Conjunctivae/corneas clear. No icterus. No ptosis. Neck: Supple, no meningeal signs Oral: no thrush Cardiovascular:RRR Respiratory: Good air entry, clear to auscultation bilaterally GI: Soft, non-tender; bowel sounds normal. No peritoneal signs Musculoskeletal: No pedal edema, no cyanosis. Right upper back surgical wound with VAC Skin: No rash or abscess Hem/Lymphatic: No palpable cervical or supraclavicular nodes. No lymphangitis Psych: Mood ok. Affect normal Neurological: Awake, alert, oriented. No gross abnormality - Constitutional Vitals: Vital Signs Temp Pulse Resp BP Pulse Ox 98.6 F 82 18 163/92 93 04/26/19 11:39 04/26/19 11:39 04/26/19 11:39 04/26/19 11:39 04/26/19 11:39 Temperature -Last 24 Hours Temperature 98.6 F Temperature 97.5 F Temperature 98.7 F Temperature 98.8 F Temperature 98.8 F Temperature 102.3 F - Labs CBC & Chem 7: 04/26/19 09:17 04/26/19 09:17 Labs: Abnormal lab results 04/25/19 04/25/19 04/26/19 Range/Units 17:41 20:32 07:16 MCV (84-94) fl MCH (28-32) pg Sodium (137-145) mmol/L Creatinine (0.8-1.5) mg/dL Glucose (75-100) mg/dL POC Glucose 128 H 241 H 313 H (70-105) 04/26/19 04/26/19 04/26/19 Range/Units 09:17 09:17 11:18 MCV 80 L (84-94) fl MCH 26 L (28-32) pg Sodium 134 L (137-145) mmol/L Creatinine 2.3 H (0.8-1.5) mg/dL Glucose 335 H (75-100) mg/dL POC Glucose 287 H (70-105)
[2019-04-26] MEDS: VANCOMYCIN 2,000 MG in NACL 0.9% 500 ML 500 ML IV SCH (18:43)
[2019-04-26] MEDS: NACL 0.9% 1000 ML 1,000 ML IV SCH (18:43)
[2019-04-26] MEDS: PRAVACHOL PO SCH (21:58)
[2019-04-27] MEDS: DILAUDID IV PRN ×5 (02:26→18:24)
[2019-04-27] MEDS: NEURONTIN PO SCH ×2 (05:48→15:04)
[2019-04-27] MEDS: APRESOLINE PO SCH ×2 (05:48→15:04)
[2019-04-27] MEDS: HEPARIN SUB-Q SCH ×2 (05:48→15:05)
[2019-04-27] MEDS: NACL 0.9% 1000 ML 1,000 ML IV SCH ×2 (05:48→15:42)
[2019-04-27 06:48] LABS: Hematocrit 38.5 % (35.5-45.6); Hemoglobin 12.6 gm/dl (11.8-15.2); Mean Corpuscular HGB Conc 33 % (32-34); Mean Corpuscular Volume 79 fl (84-94); Platelet Count 284 K/mm3 (140-440); Red Blood Count 4.85 M/mm3 (3.65-5.03); Red Cell Distribution Width 14.1 % (13.2-15.2)
[2019-04-27 07:20] LABS: Calcium 9.1 mg/dL (8.4-10.2)
[2019-04-27] MEDS: HumaLOG SUB-Q SCH ×3 (08:17→17:43)
[2019-04-27] MEDS: HumuLIN R SUB-Q SCH ×3 (08:17→17:57)
[2019-04-27] MEDS: NORVASC PO SCH (10:22)
[2019-04-27] MEDS: CATAPRES PO SCH (10:23)
[2019-04-27] MEDS: COLACE PO SCH (10:23)
[2019-04-27] MEDS: LASIX PO SCH (10:23)
[2019-04-27] MEDS: LANTUS SUB-Q SCH (10:24)
[2019-04-27] MEDS: SODIUM CHLORIDE FLUSH SYRINGE 10 ML IV SCH (10:24)
--- NOTE | 2019-04-27 12:24 | XRay Report ---
CHEST 1 VIEW INDICATION: L arm PICC placement. COMPARISON: None FINDINGS: Support devices: A left arm PICC has been inserted which terminates in the superior SVC. Consider adv ancement by 4 cm to the cavoatrial junction. Heart: Within normal limits. Lungs/Pleura: No acute air space or interstitial disease. Additional findings: None. IMPRESSION: No acute findings. Left arm PICC as described. Signer Name: Issac Schneider Jr, MD Signed: 04/27/2019 12:20 PM Workstation Name: [id number]
--- NOTE | 2019-04-27 15:57 | Discharge Summary ---
Providers - Providers Date of Admission: 04/22/19 23:37 Date of discharge: 04/27/19 Attending physician: KRISTAL ESPOSITO 04/22/19 23:46 Consult to Physician [CONS] Stat Comment: Dr. Peña spoke with Dr. Mac @ [id number] Consulting Provider: NALLELY MAC Physician Instructions: Reason For Exam: abscess 04/23/19 12:36 Consult to Physician [CONS] Routine Comment: Consulting Provider: ONOFRE GILBERT Physician Instructions: Reason For Exam: SHERLY CKD 04/24/19 10:19 Consult to Wound/ET Nurse [CONS] Routine Reason For Exam: wound eval - back wound 04/24/19 11:14 Consult to Physician [CONS] Routine Comment: MAGALY - ROSAURA Consulting Provider: ANUSHA MATHEW Physician Instructions: Reason For Exam: spesis- soft tissue 04/25/19 11:37 Consult to Case Management [CONS] Stat Services Needed at Discharge: Other Notified:: student admissions clerk Additional Physician Instructions: [facility] ([facility]) M [phone] O [phone] F [phone] OUTPATIENT PARENTERAL ANTIBIOTIC THERAPY ORDERS Diagnoses: MRSA bacteremia from large cutanous back abscess Antimicrobial administration: vancomcyin 2 gm every 24 hour total 14 days until 05/08/2019. Keep Vancomycin, target trough: 10-20 mcg/ml. Remove PICC line after last dose unless otherwise instructed. Lines: PICC Lab monitoring: CBC, creat, CRP, AST, ALT, vancomycin trough once a week preferly on Thursday morning. Please fax results to [phone] and call [phone] for critical lab results. Luz Maria Barahona Date: 04/25/2019 04/25/19 11:43 Consult to PICC Line RN [CONS] Stat Reason For Exam: IV antibiotics Type Line:: PICC [facility] Hospitalization Condition: Fair Hospital course: Patient is a 43-year-old -[place] male with history of spinal meningitis, hypelipdemia, diabetes presented to the ED on an account of possibly a bee sting on the right side of his upper back. He started experiencing severe pain on the site, which prompted him to come to the ED for further evaluation. He has associated fever with chills and headaches. He also has positive history of bilateral leg swelling. He denied chest pain, shortness of breath. He was seen and evaluated him and his department demonstrated sepsis secondary to abscess. He was started on IV antibiotics and admitted. Cultures grew MRSA. he was seen at a physician and surgeon. Incision and drainage of abscess on the back was done on 04/24/[address] Mac. Cultures grew MRSA and ID physician recommended vancomycin iv till 05/08/2019. He had a wound VAC placed and arrangements were made for home wound VAC and he was subsequently discharged on 04/27/2019 Total time spent on discharge, 42 mins Sepsis secondary to skin abscess -On IV broad-spectrum antibiotics with Vanc and Zosyn - Patient underwent I+D for complex abscess -- Advised to follow with Wound clinic in one week Hypertensive urgency -On antihypertensives, adjust as needed DM1 with hyperglycemia -On Lantus and SSI -Hba1c 13.7 Acute on CKD stage III - nephrology input noted, likely new baseline. Hyponatremia -Resolved Metabolic acidosis -Secondary to the hyperglycemia -On IV fluid, will monitor bicarbonate level Diabetic neuropathy -Resume gabapentin Hyperlipidemia Chronic diastolic heart failure with EF of 49% -No acute exacerbation DVT prophylaxis with heparin Disposition: [id number]/TX-06 HOME UNDER HOME HLTH - Discharge Diagnoses (1) SHERLY (acute kidney injury) Status: Acute (2) Abscess of back Status: Acute (3) Complicated abscess Status: Acute (4) Sepsis Status: Acute Qualifiers: Sepsis type: sepsis due to unspecified organism Qualified Code(s): A41.9 - Sepsis, unspecified organism (5) Type 2 diabetes mellitus with diabetic nephropathy Status: Acute (6) HLD (hyperlipidemia) Status: Chronic Qualifiers: Hyperlipidemia type: mixed hyperlipidemia Qualified Code(s): E78.2 - Mixed hyperlipidemia (7) Hypertensive urgency Status: Acute (8) Hyponatremia Status: Acute (9) Acute renal failure superimposed on chronic kidney disease Status: Acute Core Measure Documentation - Palliative Care Palliative Care/ Comfort Measures: Not Applicable - Core Measures Any of the following diagnoses?: none Exam - Constitutional Vitals: Temp Pulse Resp BP Pulse Ox 97.8 F 87 20 152/95 96 04/27/19 12:21 04/27/19 10:23 04/27/19 15:04 04/27/19 12:21 04/27/19 09:00 Plan Activity: advance as tolerated Diet: low fat, low cholesterol, low salt Additional Instructions: 1.Follow up with PCP or [facility] in 3-5 days. 2.Follow up with Dr. Torres in 1 week. 3.Follow up with Dr. Mac in 1 week. 4.Follow up with Dr. Barahona in 5-7 days in office. 5.Continue Vancomycin iv till 05/08/19. 6.Wound vac to be managed by home health Follow up with: NALLELY MAC MD [Staff Physician] - 7 Days HAKEEM TORRES MD [Staff Physician] - 7 Days LUZ MARIA MCKEON MD [Staff Physician] - 7 Days MARIETTA SANAPOWELL MD CLEOPATRA [Primary Care Provider] - 3-5 Days Prescriptions: hydrALAZINE [Apresoline TAB] 100 mg PO Q8HR #90 tab Insulin Regular, Human [HumuLIN R] 10 units SUB-Q AC 30 Days units traMADol [Ultram 50 MG tab] 50 mg PO Q6HR PRN #20 tablet PRN Reason: Pain
--- NOTE | 2019-04-27 16:20 | Progress Note ---
Assessment and Plan - Patient Problems (1) SHERLY (acute kidney injury) Current Visit: No Status: Acute Plan to address problem: Prerenal azotemia versus acute tubular necrosis secondary to sepsis. I also suspect superimposed NSAID induced nephropathy with a long-standing use of Advil. Discontinue intravenous fluids. I agree with discharge planning (2) Chronic kidney disease, stage III (moderate) Current Visit: Yes Status: Acute Plan to address problem: Chronic kidney disease presumably secondary to diabetic nephropathy/hypertensive nephrosclerosis. Baseline kidney function unknown (3) Proteinuria Current Visit: Yes Status: Acute Plan to address problem: Suggests diabetic nephropathy. Quantify proteinuria. Will benefit from GREGORIO inhibitor/angiotensin receptor linus long-term. Will challenge when kidney function stabilizes. (4) Abscess of back Current Visit: Yes Status: Acute Plan to address problem: Incision and drainage done by surgeon. Cultures growing MRSA. Continue antibiotics. Discharge antibiotics being arranged by Infectious disease (5) Type 2 diabetes mellitus with diabetic nephropathy Current Visit: Yes Status: Acute Plan to address problem: Blood sugar control by primary attending. (6) Hypertensive chronic kidney disease with stage 1 through stage 4 chronic kidney disease, or unspecified chronic kidney disease Current Visit: Yes Status: Acute Plan to address problem: Follow blood pressure on current medications Subjective Date of service: 04/27/19 Principal diagnosis: acute kidney injury superimposed on chronic kidney disease. Interval history: Patient seen lying in bed. Had a better night. No nausea or vomiting. Pain control is better Objective - Exam Narrative Exam: Heavily built Middle-aged -[place] male lying in bed in no acute distress HEENT: NCAT, pink oral mucous membrane Neck: Supple, no venous distention CVS: S1S2 RRR with no murmur, rub or gallop Chest: Clear to auscultation Abdomen: Protuberant, soft, nontender, no organomegaly, bowel sounds are present Extremities: No edema Dressing in his upper back clean and dry, Genitourinary deferred Neuro: Awake, alert no focal deficits - Vital Signs Vital signs: Vital Signs - 12hr 04/27/19 04/27/19 04/27/19 05:05 05:08 08:00 Temperature 97.8 F 98.5 F Pulse Rate 84 Pulse Rate [ Apical] Respiratory 20 18 Rate Respiratory Rate [Neck] Blood Pressure 145/82 160/95 O2 Sat by Pulse 96 Oximetry 04/27/19 04/27/19 04/27/19 09:00 10:00 10:22 Temperature Pulse Rate 78 87 Pulse Rate [ 84 Apical] Respiratory 20 Rate Respiratory 20 Rate [Neck] Blood Pressure 160/95 O2 Sat by Pulse 96 Oximetry 04/27/19 04/27/19 04/27/19 10:23 10:33 12:21 Temperature 97.8 F Pulse Rate 87 Pulse Rate [ Apical] Respiratory 20 18 Rate Respiratory Rate [Neck] Blood Pressure 160/95 152/95 O2 Sat by Pulse Oximetry 04/27/19 15:04 Temperature Pulse Rate Pulse Rate [ Apical] Respiratory 20 Rate Respiratory Rate [Neck] Blood Pressure O2 Sat by Pulse Oximetry - Lab 04/27/19 06:14 04/27/19 06:14 Most recent lab results Calcium 9.1 mg/dL (8.4-10.2) 04/27/19 06:14 Phosphorus 2.40 mg/dL (2.5-4.5) L 04/25/19 05:24 Medications & Allergies - Medications Allergies/Adverse Reactions: Allergies acetaminophen [From Percocet] Adverse Reaction (Mild, Verified 04/24/19 15:52) Itching oxycodone [From Percocet] Adverse Reaction (Mild, Verified 04/24/19 15:52) Itching Home Medications: Home Medications Medication Instructions Recorded Confirmed Last Taken Type Insulin NPH/Regular [NovoLIN 70/30] 50 unit SUB-Q AC #3 vial 04/20/18 04/26/19 Unknown Rx Pravastatin [Pravachol] 20 mg PO QHS #30 tablet 04/20/18 04/26/19 Unknown Rx cloNIDine [Catapres] 0.2 mg PO BID #60 tablet 04/20/18 04/26/19 Unknown Rx traMADol [Ultram 50 MG tab] 50 mg PO Q6HR PRN #20 tablet 09/16/18 04/26/19 Unknown Rx Amlodipine Besylate [Norvasc] 10 mg PO DAILY 12/06/18 04/26/19 Unknown History Furosemide [Lasix TAB] 40 mg PO QDAY 12/06/18 04/26/19 Unknown History Gabapentin [Neurontin] 300 mg PO Q8HR 12/06/18 04/26/19 Unknown History hydrALAZINE [Apresoline TAB] 50 mg PO Q8HR 12/06/18 04/26/19 Unknown History Insulin Regular, Human [HumuLIN R] 10 units SUB-Q AC 30 Days units 04/25/19 Unknown Rx hydrALAZINE [Apresoline TAB] 100 mg PO Q8HR #90 tab 04/25/19 Unknown Rx Active Medications: Generic Name Dose Route Start Last Admin Trade Name Freq PRN Reason Stop Dose Admin Acetaminophen 650 mg 04/23/19 00:22 04/25/19 21:37 Tylenol PO 650 mg Q4H PRN Administration Pain MILD(1-3)/Fever >100.5/KINNEY Amlodipine Besylate 10 mg 04/23/19 10:00 04/27/19 10:22 Norvasc PO 10 mg QDAY BARRY Administration Clonidine HCl 0.2 mg 04/23/19 02:00 04/27/19 10:23 Catapres PO 0.2 mg Q12HR BARRY Administration Dextrose 50 ml 04/23/19 01:18 D50w (25gm) Syringe IV PRN PRN Hypoglycemia Docusate Sodium 100 mg 04/23/19 10:00 04/27/19 10:23 Colace PO 100 mg BID BARRY Administration Furosemide 40 mg 04/23/19 14:00 04/27/19 10:23 Lasix PO 40 mg QDAY BARRY Administration Gabapentin 300 mg 04/23/19 14:00 04/27/19 15:04 Neurontin PO 300 mg Q8HR BARRY Administration Heparin Sodium (Porcine) 5,000 unit 04/23/19 06:00 04/27/19 15:05 Heparin SUB-Q 5,000 unit Q8HR BARRY Administration Hydralazine HCl 10 mg 04/23/19 01:23 04/25/19 12:05 Apresoline IV 10 mg Q4H PRN Administration Blood Pressure Hydralazine HCl 100 mg 04/23/19 14:00 04/27/19 15:04 Apresoline PO 100 mg Q8HR BARRY Administration Hydromorphone HCl 1 mg 04/23/19 00:22 04/27/19 15:04 Dilaudid IV 1 mg Q3H PRN Administration Pain , Severe (7-10) Sodium Chloride 1,000 mls @ 100 mls/hr 04/23/19 01:00 04/27/19 15:42 Nacl 0.9% 1000 Ml IV 100 mls/hr DIRECT BARRY Administration Vancomycin HCl 2,000 mg/ 540 mls @ 250 mls/hr 04/25/19 18:00 04/26/19 18:43 Sodium Chloride IV 250 mls/hr Q24H BARRY Administration Insulin Glargine 30 units 04/23/19 14:00 04/27/19 10:24 Lantus SUB-Q 30 units BID BARRY Administration Insulin Human Lispro 0 unit 04/23/19 07:30 04/27/19 13:12 Humalog SUB-Q Not Given ACHS [facility] Protocol Insulin Human Regular 10 units 04/23/19 16:30 04/27/19 13:18 Humulin R SUB-Q 10 units AC BARRY Administration Ondansetron HCl 4 mg 04/23/19 00:22 Zofran IV Q8H PRN Nausea And Vomiting Pravastatin Sodium 20 mg 04/23/19 22:00 04/26/19 21:58 Pravachol PO 20 mg QHS BARRY Administration Sodium Chloride 10 ml 04/23/19 10:00 04/27/19 10:24 Sodium Chloride Flush Syringe 10 Ml IV 10 ml BID BARRY Administration Sodium Chloride 10 ml 04/23/19 00:22 04/25/19 05:46 Sodium Chloride Flush Syringe 10 Ml IV 10 ml PRN PRN Administration LINE FLUSH Zolpidem Tartrate 5 mg 04/23/19 00:22 04/27/19 02:27 Ambien PO 5 mg QHS PRN Administration Insomnia
[2019-04-27] MEDS: VANCOMYCIN 2,000 MG in NACL 0.9% 500 ML 500 ML IV SCH (18:24)
[2019-04-27] MEDS: APRESOLINE IV PRN (20:14)
[2019-04-27 20:15] VITALS: BP 165/105
== END 2019-04-27 21:35 | disposition home health service (06) | DRG 853 ==
LOC: ED 18:01 → 4A 23:37
PROVIDERS: ADMIT Internal Medicine; ATTEND Internal Medicine
PROC: 0J973ZZ Drainage of Back Subcutaneous Tissue and Fascia, Percutaneous Approach (ICD-10-PCS; principal; 2019-04-22)
PROC: 0JB70ZZ Excision of Back Subcutaneous Tissue and Fascia, Open Approach (ICD-10-PCS; 2019-04-24)
DX: A41.02 Sepsis due to Methicillin resistant Staphylococcus aureus (principal); N17.0 Acute kidney failure with tubular necrosis; E87.1 Hypo-osmolality and hyponatremia; I13.0 Hypertensive heart and chronic kidney disease with heart failure and stage 1 through stage 4 chronic kidney disease, or unspecified chronic kidney disease; I50.32 Chronic diastolic (congestive) heart failure; L02.212 Cutaneous abscess of back [any part, except buttock and flank]; E10.65 Type 1 diabetes mellitus with hyperglycemia; N18.3 Chronic kidney disease, stage 3 (moderate); E10.40 Type 1 diabetes mellitus with diabetic neuropathy, unspecified; E10.22 Type 1 diabetes mellitus with diabetic chronic kidney disease; E78.5 Hyperlipidemia, unspecified; I16.0 Hypertensive urgency; N14.0 Analgesic nephropathy; T39.8X5A Adverse effect of other nonopioid analgesics and antipyretics, not elsewhere classified, initial encounter; Y92.89 Other specified places as the place of occurrence of the external cause
CPT/HCPCS: 36415; 71045; 76770; 80048; 80053; 80076; 80202; 81001; 82140; 82962; 83036; 84100; 85025; 85027; 87040; 87075; 87076; 87116; 87186; 93306; G0378; A6260; A9270-GY; J0360; J1170; J1644; J1815; J2405; J2543; J2704; J3010; J3370; J7030; J7040

== ENCOUNTER 2020-08-24 01:21 | Emergency (ER) | payer MEDICARE ==
[2020-08-24] MEDS ORDERED: ASPIRIN 325 MG TAB PO ONE (01:28)
[2020-08-24 01:35] VITALS: BP 164/100
--- NOTE | 2020-08-24 02:20 | XRay Report ---
CHEST 1 VIEW INDICATION / CLINICAL INFORMATION: Chest Pain. COMPARISON: 05/01/2020 FINDINGS: SUPPORT DEVICES: None. HEART / MEDIASTINUM: No significant abnormality. LUNGS / PLEURA: There is mild interstitial prominence which is unchanged from the prior study. No sug gestion for acute pneumonia or pleural effusion. No pneumothorax. ADDITIONAL FINDINGS: No significant additional findings. IMPRESSION: 1. No acute disease. No interval change from prior exam. Signer Name: Megan Zepeda MD Signed: 08/24/2020 2:16 AM Workstation Name: [id number]
[2020-08-24 02:22] LABS: Basophils # (Auto) 0.1 K/mm3 (0.0-0.1); Basophils % (Auto) 0.6 % (0.0-1.8); Eosinophils # (Auto) 0.3 K/mm3 (0.0-0.4); Hematocrit 34.7 % (35.5-45.6); Lymphocytes # (Auto) 1.2 K/mm3 (1.2-5.4); Lymphocytes % (Auto) 7.3 % (13.4-35.0); Mean Corpuscular HGB Conc 32 % (32-34); Mean Corpuscular Volume 80 fl (84-94); Monocytes # (Auto) 1.2 K/mm3 (0.0-0.8); Monocytes % (Auto) 7.6 % (0.0-7.3); Platelet Count 335 K/mm3 (140-440); Red Blood Count 4.33 M/mm3 (3.65-5.03); Red Cell Distribution Width 15.5 % (13.2-15.2)
[2020-08-24] MEDS ORDERED: KETOROLAC 60 MG/2 ML INJ IM ONE (02:28)
[2020-08-24 02:29] LABS: Calcium 8.7 mg/dL (8.4-10.2)
--- NOTE | 2020-08-24 03:14 | Emergency Department Report ---
ED General Adult HPI - General Chief complaint: Chest Pain Stated complaint: FOOT PAIN, CHEST PAIN Time Seen by Provider: 08/24/20 02:27 Source: patient Mode of arrival: Ambulatory Limitations: No Limitations - History of Present Illness Initial comments: Patient is a 44-year-old F [place] male with hypertension diabetes who is presenting with chest discomfort and cough for the past 3 days. Patient states cough is productive of green sputum. Pain is aching pain when he coughs. States he has body aches and chills as well. Patient also is complaining of some right foot pain for approximately a week. He has symptoms swelling and lateral right foot and wound after a pallet fell on his foot and a piece of wood entered through his shoe and punctured his right foot. - Related Data Home Medications Medication Instructions Recorded Confirmed Last Taken Amlodipine Besylate [Norvasc] 10 mg PO DAILY 12/06/18 05/05/20 Unknown Furosemide [Lasix TAB] 40 mg PO QDAY 12/06/18 05/05/20 Unknown Gabapentin 300 mg PO Q8HR 12/06/18 05/05/20 Unknown hydrALAZINE [Apresoline TAB] 50 mg PO Q8HR 12/06/18 05/05/20 Unknown Previous Rx's Medication Instructions Recorded Last Taken Type Insulin NPH/Regular [NovoLIN 70/30] 50 unit SUB-Q AC #3 vial 04/20/18 Unknown Rx Pravastatin [Pravachol] 20 mg PO QHS #30 tablet 04/20/18 Unknown Rx cloNIDine [Catapres] 0.2 mg PO BID #60 tablet 04/20/18 Unknown Rx Insulin Regular, Human [HumuLIN R] 10 units SUB-Q AC 30 Days units 04/25/19 Unknown Rx Linezolid [Zyvox] 600 mg PO BID #4 tablet 05/08/20 Unknown Rx oxyCODONE /ACETAMINOPHEN [Percocet 1 tab PO Q6H PRN #14 tablet 05/08/20 Unknown Rx 5/325 mg] Albuterol Mdi (or & Nicu Only) 2 puff IH QID PRN #1 inhalation 08/24/20 Unknown Rx [ProAir HFA Inhaler] Azithromycin [Zithromax Z-WARREN] 250 mg PO DAILY #6 tablet 08/24/20 Unknown Rx Benzonatate [Tessalon Perles] 100 mg PO Q8HR #10 capsule 08/24/20 Unknown Rx HYDROcodone/APAP 5-325 [[place] 1 each PO Q6HR PRN #14 tablet 08/24/20 Unknown Rx 5/325] Sulfamethoxazole/Trimethoprim 1 each PO BID #14 tablet 08/24/20 Unknown Rx [Bactrim DS TAB] Allergies Allergy/AdvReac Type Severity Reaction Status Date / Time No Known Allergies Allergy Unverified 05/03/20 14:49 ED Review of Systems ROS: Stated complaint: FOOT PAIN, CHEST PAIN Other details as noted in HPI Comment: All other systems reviewed and negative ED Past Medical Hx - Past Medical History Previous Medical History?: Yes Hx Hypertension: Yes (CHF-EF .49. States he can climb two flights of stairs) Hx Heart Attack/AMI: No Hx Congestive Heart Failure: Yes Hx Diabetes: Yes Hx Deep Vein Thrombosis: No Hx Liver Disease: No Hx Renal Disease: Yes (CKD Stage 3) Hx Asthma: No Hx COPD: No Additional medical history: Pneumonia in 2016 with two chest tubes - Surgical History Past Surgical History?: Yes Hx Pacemaker: No Hx Internal Defibrillator: No Additional Surgical History: spinal mennigitis, Chest tubes x 2 with pneumonia 2016 - Social History Smoking Status: Never Smoker Substance Use Type: None - Medications Home Medications: Home Medications Medication Instructions Recorded Confirmed Last Taken Type Insulin NPH/Regular [NovoLIN 70/30] 50 unit SUB-Q AC #3 vial 04/20/18 05/05/20 Unknown Rx Pravastatin [Pravachol] 20 mg PO QHS #30 tablet 04/20/18 05/05/20 Unknown Rx cloNIDine [Catapres] 0.2 mg PO BID #60 tablet 04/20/18 05/05/20 Unknown Rx Amlodipine Besylate [Norvasc] 10 mg PO DAILY 12/06/18 05/05/20 Unknown History Furosemide [Lasix TAB] 40 mg PO QDAY 12/06/18 05/05/20 Unknown History Gabapentin 300 mg PO Q8HR 12/06/18 05/05/20 Unknown History hydrALAZINE [Apresoline TAB] 50 mg PO Q8HR 12/06/18 05/05/20 Unknown History Insulin Regular, Human [HumuLIN R] 10 units SUB-Q AC 30 Days units 04/25/19 05/05/20 Unknown Rx Linezolid [Zyvox] 600 mg PO BID #4 tablet 05/08/20 Unknown Rx oxyCODONE /ACETAMINOPHEN [Percocet 1 tab PO Q6H PRN #14 tablet 05/08/20 Unknown Rx 5/325 mg] Albuterol Mdi (or & Nicu Only) 2 puff IH QID PRN #1 inhalation 08/24/20 Unknown Rx [ProAir HFA Inhaler] Azithromycin [Zithromax Z-WARREN] 250 mg PO DAILY #6 tablet 08/24/20 Unknown Rx Benzonatate [Tessalon Perles] 100 mg PO Q8HR #10 capsule 08/24/20 Unknown Rx HYDROcodone/APAP 5-325 [[place] 1 each PO Q6HR PRN #14 tablet 08/24/20 Unknown Rx 5/325] Sulfamethoxazole/Trimethoprim 1 each PO BID #14 tablet 08/24/20 Unknown Rx [Bactrim DS TAB] ED Physical Exam - General Limitations: No Limitations General appearance: alert, in no apparent distress - Head Head exam: Present: atraumatic, normocephalic - Eye Eye exam: Present: normal appearance - ENT ENT exam: Present: mucous membranes moist - Neck Neck exam: Present: normal inspection - Respiratory Respiratory exam: Present: normal lung sounds bilaterally. Absent: respiratory distress, wheezes, rales, rhonchi - Cardiovascular Cardiovascular Exam: Present: regular rate, normal rhythm. Absent: systolic murmur, diastolic murmur, rubs, gallop - GI/Abdominal GI/Abdominal exam: Present: soft, normal bowel sounds. Absent: distended, tenderness, guarding, rebound - Rectal Rectal exam: Present: deferred - Extremities Exam Extremities exam: Present: normal inspection - Expanded Lower Extremity Exam Right Foot/Toe exam: Present: full ROM, tenderness, swelling (Mild swelling laterally with some erythema surrounding puncture wound. There is no active purulent drainage at this time.) - Back Exam Back exam: Present: normal inspection - Neurological Exam Neurological exam: Present: alert, oriented X3 - Psychiatric Psychiatric exam: Present: normal affect, normal mood - Skin Skin exam: Present: warm, dry, intact, normal color. Absent: rash ED Course Vital Signs 08/24/20 01:34 Temperature 99.6 F Pulse Rate 109 H Respiratory 20 Rate Blood Pressure 164/100 O2 Sat by Pulse 95 Oximetry ED Medical Decision Making - Lab Data Result diagrams: 08/24/20 01:45 08/24/20 01:45 Lab Results 08/24/20 08/24/20 Range/Units 01:45 01:45 WBC 16.0 H (4.5-11.0) K/mm3 RBC 4.33 (3.65-5.03) M/mm3 Hgb 11.0 L (11.8-15.2) gm/dl Hct 34.7 L (35.5-45.6) % MCV 80 L (84-94) fl MCH 25 L (28-32) pg MCHC 32 (32-34) % RDW 15.5 H (13.2-15.2) % Plt Count 335 (140-440) K/mm3 Lymph % (Auto) 7.3 L (13.4-35.0) % [place] % (Auto) 7.6 H (0.0-7.3) % Eos % (Auto) 2.0 (0.0-4.3) % Baso % (Auto) 0.6 (0.0-1.8) % Lymph # (Auto) 1.2 (1.2-5.4) K/mm3 [place] # (Auto) 1.2 H (0.0-0.8) K/mm3 Eos # (Auto) 0.3 (0.0-0.4) K/mm3 Baso # (Auto) 0.1 (0.0-0.1) K/mm3 Seg Neutrophils % 82.5 H (40.0-70.0) % Seg Neutrophils # 13.2 H (1.8-7.7) K/mm3 Sodium 133 L (137-145) mmol/L Potassium 4.7 (3.6-5.0) mmol/L Chloride 103.8 (98-107) mmol/L Carbon Dioxide 17 L (22-30) mmol/L Anion Gap 17 mmol/L BUN 28 H (9-20) mg/dL Creatinine 3.6 H (0.8-1.3) mg/dL Estimated GFR 22 ml/min BUN/Creatinine Ratio 8 % Glucose 393 H (75-100) mg/dL Calcium 8.7 (8.4-10.2) mg/dL Troponin T 0.083 H (0.00-0.029) ng/mL - EKG Data -: EKG Interpreted by Nh EKG shows normal: sinus rhythm, axis, intervals, QRS complexes, ST-T waves Rate: tachycardia (106) - Radiology Data [facility] [address] [place] [address] XRay Report Signed Patient: DANIEL RAGSDALE MR#: [id number] 37 : 1975 Acct:[id number] Age/Sex: 44 / M ADM Date: 08/24/20 Loc: ED Attending Dr: Ordering Physician: HEMALATHA FERMIN MD Date of Service: 08/24/20 Procedure(s): XR chest 1V ap Accession Number(s): [id number] cc: ED MD JENY Fluoro Time In Minutes: CHEST 1 VIEW INDICATION / CLINICAL INFORMATION: Chest Pain. COMPARISON: 05/01/2020 FINDINGS: SUPPORT DEVICES: None. HEART / MEDIASTINUM: No significant abnormality. LUNGS / PLEURA: There is mild interstitial prominence which is unchanged from the prior study. No suggestion for acute pneumonia or pleural effusion. No pneumothorax. ADDITIONAL FINDINGS: No significant additional findings. IMPRESSION: 1. No acute disease. No interval change from prior exam. Signer Name: Megan Zepeda MD Signed: 08/24/2020 2:16 AM Workstation Name: [id number] Transcribed By: JR Dictated By: Megan Zepeda MD Electronically Authenticated By: Megan Zepeda MD Signed Date/Time: 08/24/20 0216 - Medical Decision Making Patient does have suspected Covid. He will be treated for acute bronchitis. Because of his diabetes comorbidities we will start the patient on azithromycin as well. We will hold Decadron or other steroids at this time because of his hyperglycemia. Patient does have some worsening renal insufficiency will be given nephrology for follow-up. Patient started on Bactrim for the cellulitis of his foot Critical care attestation.: If time is entered above; I have spent that time in minutes in the direct care of this critically ill patient, excluding procedure time. ED Disposition Clinical Impression: Acute bronchitis, Atypical chest pain, Cellulitis of foot, Puncture wound, Suspected COVID-19 virus infection Chronic kidney disease Qualifiers: Chronic kidney disease stage: stage 4 (severe) Qualified Code(s): N18.4 - Chronic kidney disease, stage 4 (severe) Disposition: DC-01 TO HOME OR SELFCARE Is pt being admited?: No Does the pt Need Aspirin: No Condition: Stable Instructions: Acute Bronchitis (ED), Chest Pain (ED), Nonspecific Chest Pain, Adult, Preventing Chronic Kidney Disease, Acute Bronchitis, Adult, [id number], Cellulitis, Adult, [id number], COVID-19 Frequently Asked Questions, COVID-19, COVID-19: How to Protect Yourself and Others - [facility] Additional Instructions: Please obtain outpatient COVID-19 testing and isolate yourself from others while ill for the next 14 days. Your kidney function has worsened slightly. Please follow-up with the real estate leasing manager that has been added to your discharge paperwork Referrals: RUSLAN STATON MD [Staff Physician] - 3-5 Days TRINITY NEW MD [Staff Physician] - 3-5 Days WINCHESTER TARIQ HOOD MD [Referring] - 3-5 Days Time of Disposition: 03:18
[2020-08-24 04:02] LABS: Chol/HDL Ratio 2.9 %
== END 2020-08-24 04:35 | disposition home or self-care (01) ==
LOC: ED 01:21
DX: E11.22 Type 2 diabetes mellitus with diabetic chronic kidney disease (principal); I13.0 Hypertensive heart and chronic kidney disease with heart failure and stage 1 through stage 4 chronic kidney disease, or unspecified chronic kidney disease; N18.9 Chronic kidney disease, unspecified; I50.9 Heart failure, unspecified; L03.115 Cellulitis of right lower limb; J20.9 Acute bronchitis, unspecified; R07.89 Other chest pain; Z20.828 Contact with and (suspected) exposure to other viral communicable diseases; Z98.890 Other specified postprocedural states; Z79.4 Long term (current) use of insulin; Z79.899 Other long term (current) drug therapy
CPT/HCPCS: 36415; 71045; 80048; 80061; 84484; 85025; 93005; 96372; 99284; J1885

== ENCOUNTER 2020-11-16 09:08 | Inpatient (IN) | payer MEDICARE ==
[2020-11-16] MEDS ORDERED: PIPERACIL/TAZOBACTA 4.5/NS 100 4.5 GM/100 ML VIAL IV ONE (09:50)
[2020-11-16] MEDS ORDERED: HYDROmorphone 1 MG/1 ML INJ IV ONE ×3 (09:54→12:26)
[2020-11-16] MEDS ORDERED: SODIUM CHLORIDE 0.9% 100 ML IVPB IV STA (09:54)
--- NOTE | 2020-11-16 09:55 | Emergency Department Report ---
ED General Adult HPI - General Chief complaint: Hyperglycemia Stated complaint: HIGH BLOOD SUGAR PUI?: No Time Seen by Provider: 11/16/20 09:34 Source: patient, EMS ( EMS documentation not available at time of chart dicta tion ), RN notes reviewed Mode of arrival: Wheelchair Limitations: Physical Limitation - History of Present Illness Initial comments: The patient was evaluated in the emergency department for symptoms described in the history of present illness. He/she was evaluated in the context of the global COVID-19 pandemic, which necessitated consideration that the patient might be at risk for infection with the virus that causes COVID-19. Institutional protocols and algorithms that pertain to the evaluation of p atients at risk for COVID-19 are in a state of rapid change based on information released by regulatory bodies including the CDC and federal and state organizations. These policies and algorithms were followed during the patient's care in the emergency department. Please note that these policies, procedures and recommendations changed on a rapid basis. The patient is a 45-year-old gentleman. I have evaluated this patient in the past. He has a history of renal insufficiency, peripheral artery disease, osteomyelitis, diabetes. I admitted this patient to the medical service around 6 weeks ago for sepsis secondary to right lower extremity osteomyelitis. Please see his discharge summary for the details of his care, including exam findings and culture results. He presents to the ER today with a complaint of complete right lower extremity pain, and discharge from his right foot wound. Unsure if he is having fevers. No chills. Positive nausea. No chest pain. Chronic shortness of breath. No loss of taste or smell. No diarrhea. No dysuria. Has not been able to follow- up in the wound care clinic. EMS reports patient was hypoglycemic in the field. Symptoms have been going on for the past couple of days. -: Gradual, days(s) Location: buttocks, right, lower extremity Radiation: extremity Quality: aching Consistency: constant Improves with: rest Worsens with: movement - Related Data Home Medications Medication Instructions Recorded Confirmed Last Taken Amlodipine Besylate [Norvasc] 10 mg PO DAILY 12/06/18 10/08/20 Unknown Gabapentin 300 mg PO Q8HR 12/06/18 10/08/20 Unknown Previous Rx's Medication Instructions Recorded Last Taken Type Pravastatin [Pravachol] 20 mg PO QHS #30 tablet 04/20/18 Unknown Rx Albuterol Mdi (or & Nicu Only) 2 puff IH QID PRN #1 inhalation 08/24/20 Unknown Rx [ProAir HFA Inhaler] Benzonatate [Tessalon Perles] 100 mg PO Q8HR #10 capsule 08/24/20 Unknown Rx DAPTOmycin 800 mg IV Q24H vial 09/28/20 Unknown Rx Insulin NPH/Regular [NovoLIN 70/30] 35 unit SUB-Q BIDDIAB #12 ml 09/28/20 Unknown Rx Metoprolol [Lopressor TAB] 25 mg PO BID #60 tablet 09/28/20 Unknown Rx Oxycodone HCl/Acetaminophen 1 each PO Q8HR PRN #8 tablet 09/28/20 Unknown Rx [Percocet 7.5/325 mg] hydrALAZINE [Apresoline TAB] 100 mg PO Q8HR #90 tab 09/28/20 Unknown Rx DAPTOmycin 800 mg IV Q48H vial 10/13/20 Unknown Rx HYDROcodone/APAP 5-325 [Adell 1 each PO Q6HR PRN #14 tablet 10/13/20 Unknown Rx 5-325 mg TAB] levoFLOXacin [Levaquin] 750 mg PO Q48H 20 Days #10 tablet 10/13/20 Unknown Rx Allergies Allergy/AdvReac Type Severity Reaction Status Date / Time oxycodone [From Percocet] AdvReac Vomiting Verified 09/24/20 18:07 ED Review of Systems ROS: Stated complaint: HIGH BLOOD SUGAR Other details as noted in HPI Constitutional: chills, malaise, weakness Eyes: denies: eye discharge ENT: denies: epistaxis Respiratory: cough Cardiovascular: denies: chest pain Gastrointestinal: abdominal pain, nausea Genitourinary: denies: dysuria Musculoskeletal: arthralgia, myalgia Skin: rash, lesions, change in color Neurological: weakness Hematological/Lymphatic: denies: easy bleeding ED Past Medical Hx - Past Medical History Previous Medical History?: Yes Hx Hypertension: Yes Hx Heart Attack/AMI: No Hx Congestive Heart Failure: Yes Hx Diabetes: Yes Hx Deep Vein Thrombosis: (unknown) Hx Liver Disease: No Hx Renal Disease: Yes (CKD Stage 3) Hx Seizures: No Hx Asthma: No Hx COPD: No Hx HIV: No Additional medical history: Pneumonia in 2016 with two chest tubes - Surgical History Past Surgical History?: Yes Hx Pacemaker: No Hx Internal Defibrillator: No Additional Surgical History: spinal mennigitis, Chest tubes x 2 with pneumonia 2016 - Social History Smoking Status: Current Every Day Smoker Substance Use Type: None - Medications Home Medications: Home Medications Medication Instructions Recorded Confirmed Last Taken Type Pravastatin [Pravachol] 20 mg PO QHS #30 tablet 04/20/18 10/08/20 Unknown Rx Amlodipine Besylate [Norvasc] 10 mg PO DAILY 12/06/18 10/08/20 Unknown History Gabapentin 300 mg PO Q8HR 12/06/18 10/08/20 Unknown History Albuterol Mdi (or & Nicu Only) 2 puff IH QID PRN #1 inhalation 08/24/20 10/08/20 Unknown Rx [ProAir HFA Inhaler] Benzonatate [Tessalon Perles] 100 mg PO Q8HR #10 capsule 08/24/20 10/08/20 Unknown Rx DAPTOmycin 800 mg IV Q24H vial 09/28/20 10/08/20 Unknown Rx Insulin NPH/Regular [NovoLIN 70/30] 35 unit SUB-Q BIDDIAB #12 ml 09/28/20 10/08/20 Unknown Rx Metoprolol [Lopressor TAB] 25 mg PO BID #60 tablet 09/28/20 10/08/20 Unknown Rx Oxycodone HCl/Acetaminophen 1 each PO Q8HR PRN #8 tablet 09/28/20 10/08/20 Unknown Rx [Percocet 7.5/325 mg] hydrALAZINE [Apresoline TAB] 100 mg PO Q8HR #90 tab 09/28/20 10/08/20 Unknown Rx DAPTOmycin 800 mg IV Q48H vial 10/13/20 Unknown Rx HYDROcodone/APAP 5-325 [Adell 1 each PO Q6HR PRN #14 tablet 10/13/20 Unknown Rx 5-325 mg TAB] levoFLOXacin [Levaquin] 750 mg PO Q48H 20 Days #10 tablet 10/13/20 Unknown Rx ED Physical Exam - General Limitations: Physical Limitation General appearance: alert, anxious, in distress, obese - Head Head exam: Present: atraumatic, normocephalic - Eye Eye exam: Present: normal appearance, EOMI. Absent: nystagmus - ENT ENT exam: Present: normal exam, normal orophraynx, mucous membranes moist, normal external ear exam - Neck Neck exam: Present: normal inspection, full ROM. Absent: tenderness, meningismus - Respiratory Respiratory exam: Present: normal lung sounds bilaterally. Absent: respiratory distress, wheezes, rales, rhonchi, stridor, decreased breath sounds - Cardiovascular Cardiovascular Exam: Present: regular rate, normal rhythm, normal heart sounds. Absent: bradycardia, tachycardia, irregular rhythm, systolic murmur, diastolic murmur, rubs, gallop - GI/Abdominal GI/Abdominal exam: Present: soft. Absent: distended, tenderness, guarding, rebound, rigid, pulsatile mass - Rectal Rectal exam: Present: deferred - Extremities Exam Extremities exam: Present: full ROM, tenderness, calf tenderness, other (The rig ht foot is discolored, swollen, and there is obvious discharge and pus noted from his amputation site. The right lower extremity is more swollen and tender, and compartments are tense when compared to the left lower extremity. Pain with passive range of motion in the right hip, right knee.). Absent: normal inspection (Thready pulses noted in the right lower extremities, 2+ pulses noted in the left lower extremity, 2+ pulses noted in the bilateral upper extremity) - Back Exam Back exam: Present: normal inspection, full ROM. Absent: tenderness, CVA tend erness (R), CVA tenderness (L), paraspinal tenderness, vertebral tenderness - Neurological Exam Neurological exam: Present: alert, other (No facial droop. Tongue midline. Extraocular movements intact bilaterally. Facial sensation intact to light touch in V1, V2, V3 distribution bilaterally. 5 and a 5 strength in 4 extremities. Sensation intact to light touch in 4 extremities.) - Psychiatric Psychiatric exam: Present: anxious - Skin Skin exam: Present: warm ED Course Vital Signs 11/16/20 11/16/20 09:22 10:42 Temperature 98.6 F Pulse Rate 95 H 97 H Respiratory 18 18 Rate Blood Pressure 156/105 Blood Pressure 188/104 [Left] O2 Sat by Pulse 97 97 Oximetry - Reevaluation(s) Reevaluation #1: Differential diagnosis, including but not limited to: Cellulitis, myositis, osteomyelitis, fasciitis, sepsis, hyperglycemia Assessment and plan: 45-year-old gentleman with heart rate greater than 90, white blood cell count of 23,000, obviously infected right lower extremity, with pain in his gluteal, thigh, hamstring, and tibial compartments. We are concerned about fasciitis versus advancing soft tissue/deep space infection. Emergent CT scan of the right lower extremity is obtained. Initially, the tissue technologist only obtain CT scan of the distal right lower extremity, so the order was clarified with the tissue technologist, and they will complete CT scan of the complete right lower extremity starting from the hip. Patient will be resuscitated according to the sepsis pathway, he is morbidly obese, so we will use his ideal body weight, as pictured below, to calculate fluid requirements. He will be medicated with vancomycin and Zosyn. We will treat his pain aggressively. Appropriate labs for sepsis have been ordered. Contacted his surgeon of record, Dr. Herrera, we have requested emergent general surgical consultation given concern for advancing/aggressive infection. He states he is currently in the operating room, and will evaluate the patient once he is out of the operating room. He also advised that the patient should be admitted to the medical service, and he will follow closely. Have discussed this plan of care with the patient, who verbalized understanding. At this point time, waiting for laboratory studies, and CT scan to result. 11/16/20 09:54 ideal body weight 186 lbs [place] Body Weight Equivalent to 84 kg Actual body weight is 158% (1.6x) ideal body weight 11/16/20 10:54 11/16/20 11:58 Laboratory studies demonstrate hyperglycemia, leukocytosis, pseudohyponatremia, no obvious anion gap, and renal insufficiency. CT scan of the lower extremity reviewed and appreciated. Hospital physician, Dr. Goldman, to admit patient to the medical service. ED Medical Decision Making - Lab Data Result diagrams: 11/16/20 10:26 11/16/20 10:15 Lab Results 11/16/20 11/16/20 11/16/20 Range/Units 10:15 10:15 10:15 WBC (4.5-11.0) K/mm3 RBC (3.65-5.03) M/mm3 Hgb (11.8-15.2) gm/dl Hct (35.5-45.6) % MCV (84-94) fl MCH (28-32) pg MCHC (32-34) % RDW (13.2-15.2) % Plt Count (140-440) K/mm3 PT 15.1 H (12.2-14.9) Sec. INR 1.19 H (0.87-1.13) APTT 37.0 H (24.2-36.6) Sec. VBG pH 7.332 (7.320-7.420) Magnesium 2.00 (1.7-2.3) mg/dL 11/16/20 Range/Units 10:26 WBC 23.1 H (4.5-11.0) K/mm3 RBC 3.52 L (3.65-5.03) M/mm3 Hgb 8.4 L (11.8-15.2) gm/dl Hct 26.7 L (35.5-45.6) % MCV 76 L (84-94) fl MCH 24 L (28-32) pg MCHC 31 L (32-34) % RDW 18.2 H (13.2-15.2) % Plt Count 287 (140-440) K/mm3 PT (12.2-14.9) Sec. INR (0.87-1.13) APTT (24.2-36.6) Sec. VBG pH (7.320-7.420) Magnesium (1.7-2.3) mg/dL Lab Results 11/16/20 11/16/20 11/16/20 Range/Units 10:15 10:15 10:15 WBC (4.5-11.0) K/mm3 RBC (3.65-5.03) M/mm3 Hgb (11.8-15.2) gm/dl Hct (35.5-45.6) % MCV (84-94) fl MCH (28-32) pg MCHC (32-34) % RDW (13.2-15.2) % Plt Count (140-440) K/mm3 PT 15.1 H (12.2-14.9) Sec. INR 1.19 H (0.87-1.13) APTT 37.0 H (24.2-36.6) Sec. VBG pH 7.332 (7.320-7.420) Magnesium 2.00 (1.7-2.3) mg/dL 11/16/20 Range/Units 10:26 WBC 23.1 H (4.5-11.0) K/mm3 RBC 3.52 L (3.65-5.03) M/mm3 Hgb 8.4 L (11.8-15.2) gm/dl Hct 26.7 L (35.5-45.6) % MCV 76 L (84-94) fl MCH 24 L (28-32) pg MCHC 31 L (32-34) % RDW 18.2 H (13.2-15.2) % Plt Count 287 (140-440) K/mm3 PT (12.2-14.9) Sec. INR (0.87-1.13) APTT (24.2-36.6) Sec. VBG pH (7.320-7.420) Magnesium (1.7-2.3) mg/dL Vital Signs 11/16/20 11/16/20 09:22 10:42 Temperature 98.6 F Pulse Rate 95 H 97 H Respiratory 18 18 Rate Blood Pressure 156/105 Blood Pressure 188/104 [Left] O2 Sat by Pulse 97 97 Oximetry Lab Results 11/16/20 11/16/20 11/16/20 Range/Units 09:52 10:15 10:15 WBC (4.5-11.0) K/mm3 RBC (3.65-5.03) M/mm3 Hgb (11.8-15.2) gm/dl Hct (35.5-45.6) % MCV (84-94) fl MCH (28-32) pg MCHC (32-34) % RDW (13.2-15.2) % Plt Count (140-440) K/mm3 PT (12.2-14.9) Sec. INR (0.87-1.13) APTT (24.2-36.6) Sec. VBG pH 7.332 (7.320-7.420) Sodium 127 L (137-145) mmol/L Potassium 4.4 (3.6-5.0) mmol/L Chloride 98.5 (98-107) mmol/L Carbon Dioxide 18 L (22-30) mmol/L Anion Gap 15 mmol/L BUN 36 H (9-20) mg/dL Creatinine 5.5 H (0.8-1.3) mg/dL Estimated GFR 14 ml/min BUN/Creatinine Ratio 7 % Glucose 429 H (75-100) mg/dL POC Glucose 387 H (70-105) mg/dL Lactic Acid (0.7-2.0) mmol/L Calcium 8.9 (8.4-10.2) mg/dL Magnesium (1.7-2.3) mg/dL Total Bilirubin 0.70 (0.1-1.2) mg/dL Direct Bilirubin 0.5 H (0-0.2) mg/dL Indirect Bilirubin 0.2 mg/dL AST 12 (5-40) units/L ALT 19 (7-56) units/L Alkaline Phosphatase 302 H (35-129) units/L Total Creatine Kinase 138 (55-170) units/L Total Protein 7.9 (6.3-8.2) g/dL Albumin 2.7 L (3.9-5) g/dL Albumin/Globulin Ratio 0.5 % 11/16/20 11/16/20 11/16/20 Range/Units 10:15 10:15 10:15 WBC (4.5-11.0) K/mm3 RBC (3.65-5.03) M/mm3 Hgb (11.8-15.2) gm/dl Hct (35.5-45.6) % MCV (84-94) fl MCH (28-32) pg MCHC (32-34) % RDW (13.2-15.2) % Plt Count (140-440) K/mm3 PT 15.1 H (12.2-14.9) Sec. INR 1.19 H (0.87-1.13) APTT 37.0 H (24.2-36.6) Sec. VBG pH (7.320-7.420) Sodium (137-145) mmol/L Potassium (3.6-5.0) mmol/L Chloride (98-107) mmol/L Carbon Dioxide (22-30) mmol/L Anion Gap mmol/L BUN (9-20) mg/dL Creatinine (0.8-1.3) mg/dL Estimated GFR ml/min BUN/Creatinine Ratio % Glucose (75-100) mg/dL POC Glucose (70-105) mg/dL Lactic Acid 1.70 (0.7-2.0) mmol/L Calcium (8.4-10.2) mg/dL Magnesium 2.00 (1.7-2.3) mg/dL Total Bilirubin (0.1-1.2) mg/dL Direct Bilirubin (0-0.2) mg/dL Indirect Bilirubin mg/dL AST (5-40) units/L ALT (7-56) units/L Alkaline Phosphatase (35-129) units/L Total Creatine Kinase (55-170) units/L Total Protein (6.3-8.2) g/dL Albumin (3.9-5) g/dL Albumin/Globulin Ratio % 11/16/ Range/Units 10:26 WBC 23.1 H (4.5-11.0) K/mm3 RBC 3.52 L (3.65-5.03) M/mm3 Hgb 8.4 L (11.8-15.2) gm/dl Hct 26.7 L (35.5-45.6) % MCV 76 L (84-94) fl MCH 24 L (28-32) pg MCHC 31 L (32-34) % RDW 18.2 H (13.2-15.2) % Plt Count 287 (140-440) K/mm3 PT (12.2-14.9) Sec. INR (0.87-1.13) APTT (24.2-36.6) Sec. VBG pH (7.320-7.420) Sodium (137-145) mmol/L Potassium (3.6-5.0) mmol/L Chloride (98-107) mmol/L Carbon Dioxide (22-30) mmol/L Anion Gap mmol/L BUN (9-20) mg/dL Creatinine (0.8-1.3) mg/dL Estimated GFR ml/min BUN/Creatinine Ratio % Glucose (75-100) mg/dL POC Glucose (70-105) mg/dL Lactic Acid (0.7-2.0) mmol/L Calcium (8.4-10.2) mg/dL Magnesium (1.7-2.3) mg/dL Total Bilirubin (0.1-1.2) mg/dL Direct Bilirubin (0-0.2) mg/dL Indirect Bilirubin mg/dL AST (5-40) units/L ALT (7-56) units/L Alkaline Phosphatase (35-129) units/L Total Creatine Kinase (55-170) units/L Total Protein (6.3-8.2) g/dL Albumin (3.9-5) g/dL Albumin/Globulin Ratio % - EKG Data -: EKG Interpreted by Me EKG shows normal: sinus rhythm Rate: tachycardia - EKG Data 11/16/20 11:14 Sinus rhythm, 96 bpm. Normal axis, QTC prolonged, poor R wave progression. Borderline left ventricular hypertrophy. Abnormal EKG. No STEMI. - Radiology Data Radiology results: pending, report reviewed, image reviewed XR chest 1V ap INDICATION / CLINICAL INFORMATION: cough weak sepsis COMPARISON: October 05, 2020 FINDINGS: SUPPORT DEVICES: None. HEART / MED IASTINUM: No significant abnormality. LUNGS / PLEURA: Hazy right lower lung zone peripheral opacity. This is similar to prior examination.. Costophrenic sulci are sharp. No pneumothorax. ADDITIONAL FINDINGS: No significant additional findings. IMPRESSION: 1. Hazy right lower lung zone parenchymal opacities similar to prior examination. This could represent airspace disease or atelectasis. Signer Name: Albert Campoverde MD Signed: 11/16/2020 9:52 AM Workstation Name: [id number] CT RIGHT LOWER EXTREMITY WITHOUT CONTRAST INDICATION : rle pain swelling. TECHNIQUE: Axial imaging performed through the right ankle and foot without the use of contrast. All CT scans at this location are performed using CT dose reduction for ALARA by means of automated exposure control. COMPARISON: MRI right foot 09/26/2020 FINDINGS: There is severe diffuse subcutaneous edema in the distal right lower extremity. No abscess is appreciated on noncontrast CT. There is been interval amputation of distal metatarsals 3, 4 and 5 including the associated toes. There is moderate soft tissue gas centered around the second metatarsophalangeal joint. Subtle cortical destruction is suspected on both sides of the second metatarsophalangeal joint which probably represents early osteomyelitis. The remaining bony structures are intact. Mild diffuse osteoarthritic changes are noted at the ankle and hindfoot. Moderate plantar spur. IMPRESSION: Severe diffuse soft tissue swelling consistent with cellulitis. Findings suggestive of osteomyelitis of the distal second metatarsal and second toe centered around the metatarsophalangeal joint. Degenerative changes. Plantar spur. Signer Name: Issac Schneider Jr, MD Signed: 11/16/2020 10:19 AM Workstation Name: [id number] Critical Care Time: Yes Critical care time in (mins) excluding proc time.: 45 Critical care attestation.: If time is entered above; I have spent that time in minutes in the direct care of this critically ill patient, excluding procedure time. ED Disposition Clinical Impression: Hyperglycemia, Peripheral vascular disease, Sepsis, Osteomyelitis of foot, right, acute, Renal insufficiency, Acute kidney injury superimposed on CKD, Hypertension Disposition: OP ADMIT IP TO THIS HOSP Is pt being admited?: Yes Does the pt Need Aspirin: No Condition: Serious Instructions: Hypertension (ED) Referrals: PRIMARY CARE, [Primary Care Provider] - 3-5 Days
[2020-11-16] MEDS ORDERED: SODIUM CHLORIDE 0.9% IV ONE (10:26)
[2020-11-16] MEDS ORDERED: VANCOMYCIN 2,000 MG in SODIUM CHLORIDE 0.9% 500 ML 500 ML IV ONE (10:30)
[2020-11-16 10:38] LABS: Hematocrit 26.7 % (35.5-45.6); Hemoglobin 8.4 gm/dl (11.8-15.2); Mean Corpuscular HGB Conc 31 % (32-34); Mean Corpuscular Volume 76 fl (84-94); Platelet Count 287 K/mm3 (140-440); Red Blood Count 3.52 M/mm3 (3.65-5.03); Red Cell Distribution Width 18.2 % (13.2-15.2)
[2020-11-16 10:47] LABS: INR 1.19 (0.87-1.13)
--- NOTE | 2020-11-16 10:56 | XRay Report ---
XR chest 1V ap INDICATION / CLINICAL INFORMATION: cough weak sepsis COMPARISON: October 05, 2020 FINDINGS: SUPPORT DEVICES: None. HEART / MEDIASTINUM: No significant abnormality. LUNGS / PLEURA: Hazy right lower lung zone peripheral opacity. This is similar to prior examination.. Costophrenic sulci are sharp. No pneumothorax. ADDITIONAL FINDINGS: No significant additional findings. IMPRESSION: 1. Hazy right lower lung zone parenchymal opacities similar to prior examination. This could represen t airspace disease or atelectasis. Signer Name: Albert Campoverde MD Signed: 11/16/2020 10:52 AM Workstation Name: [id number]
--- NOTE | 2020-11-16 11:23 | Cat Scan Report ---
CT RIGHT LOWER EXTREMITY WITHOUT CONTRAST INDICATION : rle pain swelling. TECHNIQUE: Axial imaging performed through the right ankle and foot without the use of contrast. Al l CT scans at this location are performed using CT dose reduction for ALARA by means of automated exp osure control. COMPARISON: MRI right foot 09/26/2020 FINDINGS: There is severe diffuse subcutaneous edema in the distal right lower extremity. No abscess is appreciated on noncontrast CT. There is been interval amputation of distal metatarsals 3, 4 and 5 including the associated toes. There is moderate soft tissue gas centered around the second metatarsophalangeal joint. Subtle cortic al destruction is suspected on both sides of the second metatarsophalangeal joint which probably repr esents early osteomyelitis. The remaining bony structures are intact. Mild diffuse osteoarthritic changes are noted at the ankle and hindfoot. Moderate plantar spur. IMPRESSION: Severe diffuse soft tissue swelling consistent with cellulitis. Findings suggestive of osteomyelitis of the distal second metatarsal and second toe centered around t he metatarsophalangeal joint. Degenerative changes. Plantar spur. Signer Name: Issac Schneider Jr, MD Signed: 11/16/2020 11:19 AM Workstation Name: [id number]
--- NOTE | 2020-11-16 11:27 | Cat Scan Report ---
CT RIGHT LOWER EXTREMITY WITHOUT CONTRAST INDICATION : right hip, gluteal pain, thigh pain. TECHNIQUE: Axial imaging performed through the right hip without the use of contrast. All CT scans at this location are performed using CT dose reduction for ALARA by means of automated exposure contr ol. COMPARISON: None FINDINGS: Normal bone mineralization. Mild osteoarthritic changes are identified at the right hip and right SI joint. There is no evidence for fracture, bone lesion or bony destruction. No obvious joint effusion. Surrounding soft tissues are unremarkable. There are a few enlarged right inguinal lymph nodes with the largest measuring 2.6 x 3.8 cm in axial plane.. IMPRESSION: No acute osseous findings. Mild degenerative changes as described. Right inguinal adenopathy as described. Signer Name: Issac Schneider Jr, MD Signed: 11/16/2020 11:23 AM Workstation Name: [id number]
[2020-11-16 11:52] LABS: Albumin 2.7 g/dL (3.9-5); Bilirubin,Direct 0.5 mg/dL (0-0.2); Calcium 8.9 mg/dL (8.4-10.2)
[2020-11-16] MEDS ORDERED: INSULIN REGULAR, HUMAN 100 UNITS/1 ML IV ONE (11:53)
[2020-11-16] MEDS ORDERED: amLODIPine 10 MG TAB PO STA (11:58)
--- NOTE | 2020-11-16 12:04 | History and Physical Report ---
Medications and Allergies Allergies Allergy/AdvReac Type Severity Reaction Status Date / Time oxycodone [From Percocet] AdvReac Vomiting Verified 09/24/20 18:07 Home Medications Medication Instructions Recorded Confirmed Last Taken Type Pravastatin [Pravachol] 20 mg PO QHS #30 tablet 04/20/18 10/08/20 Unknown Rx Amlodipine Besylate [Norvasc] 10 mg PO DAILY 12/06/18 10/08/20 Unknown History Gabapentin 300 mg PO Q8HR 12/06/18 10/08/20 Unknown History Albuterol Mdi (or & Nicu Only) 2 puff IH QID PRN #1 inhalation 08/24/20 10/08/20 Unknown Rx [ProAir HFA Inhaler] Benzonatate [Tessalon Perles] 100 mg PO Q8HR #10 capsule 08/24/20 10/08/20 Unknown Rx DAPTOmycin 800 mg IV Q24H vial 09/28/20 10/08/20 Unknown Rx Insulin NPH/Regular [NovoLIN 70/30] 35 unit SUB-Q BIDDIAB #12 ml 09/28/20 10/08/20 Unknown Rx Metoprolol [Lopressor TAB] 25 mg PO BID #60 tablet 09/28/20 10/08/20 Unknown Rx Oxycodone HCl/Acetaminophen 1 each PO Q8HR PRN #8 tablet 09/28/20 10/08/20 Unknown Rx [Percocet 7.5/325 mg] hydrALAZINE [Apresoline TAB] 100 mg PO Q8HR #90 tab 09/28/20 10/08/20 Unknown Rx DAPTOmycin 800 mg IV Q48H vial 10/13/20 Unknown Rx HYDROcodone/APAP 5-325 [[place] 1 each PO Q6HR PRN #14 tablet 10/13/20 Unknown Rx 5-325 mg TAB] levoFLOXacin [Levaquin] 750 mg PO Q48H 20 Days #10 tablet 10/13/20 Unknown Rx Active Meds: Active Medications Vancomycin HCl 2,000 mg/ (Sodium Chloride) 540 mls @ 333 mls/hr IV ONCE ONE; Protocol Stop: 11/16/20 12:07 Last Admin: 11/16/20 11:08 Dose: 333 mls/hr Documented by: Sodium Chloride (Nacl 0.9% 1000 Ml) 2,550 mls @ 999 mls/hr IV BOLUS ONE Stop: 11/16/20 12:59 Last Admin: 11/16/20 10:29 Dose: 999 mls/hr Documented by: Exam - Constitutional Vitals: Temp Pulse Resp BP Pulse Ox 98.6 F 97 H 18 188/104 100 11/16/20 09:22 11/16/20 10:42 11/16/20 10:42 11/16/20 10:42 11/16/20 10:42 Results - Labs CBC & Chem 7: 11/16/20 10:26 11/16/20 10:15 Labs: Laboratory Last Values WBC 23.1 K/mm3 (4.5-11.0) H 11/16/20 10:26 RBC 3.52 M/mm3 (3.65-5.03) L 11/16/20 10:26 Hgb 8.4 gm/dl (11.8-15.2) L 11/16/20 10:26 Hct 26.7 % (35.5-45.6) L 11/16/20 10:26 MCV 76 fl (84-94) L 11/16/20 10:26 MCH 24 pg (28-32) L 11/16/20 10:26 MCHC 31 % (32-34) L 11/16/20 10:26 RDW 18.2 % (13.2-15.2) H 11/16/20 10:26 Plt Count 287 K/mm3 (140-440) 11/16/20 10:26 PT 15.1 Sec. (12.2-14.9) H 11/16/20 10:15 INR 1.19 (0.87-1.13) H 11/16/20 10:15 APTT 37.0 Sec. (24.2-36.6) H 11/16/20 10:15 VBG pH 7.332 (7.320-7.420) 11/16/20 10:15 Sodium 127 mmol/L (137-145) L 11/16/20 10:15 Potassium 4.4 mmol/L (3.6-5.0) 11/16/20 10:15 Chloride 98.5 mmol/L (98-107) 11/16/20 10:15 Carbon Dioxide 18 mmol/L (22-30) L 11/16/20 10:15 Anion Gap 15 mmol/L 11/16/20 10:15 BUN 36 mg/dL (9-20) H 11/16/20 10:15 Creatinine 5.5 mg/dL (0.8-1.3) H 11/16/20 10:15 Estimated GFR 14 ml/min 11/16/20 10:15 BUN/Creatinine Ratio 7 % 11/16/20 10:15 Glucose 429 mg/dL (75-100) H 11/16/20 10:15 POC Glucose 387 mg/dL (70-105) H 11/16/20 09:52 Lactic Acid 1.70 mmol/L (0.7-2.0) 11/16/20 10:15 Calcium 8.9 mg/dL (8.4-10.2) 11/16/20 10:15 Magnesium 2.00 mg/dL (1.7-2.3) 11/16/20 10:15 Total Bilirubin 0.70 mg/dL (0.1-1.2) 11/16/20 10:15 Direct Bilirubin 0.5 mg/dL (0-0.2) H 11/16/20 10:15 Indirect Bilirubin 0.2 mg/dL 11/16/20 10:15 AST 12 units/L (5-40) 11/16/20 10:15 ALT 19 units/L (7-56) 11/16/20 10:15 Alkaline Phosphatase 302 units/L (35-129) H 11/16/20 10:15 Total Creatine Kinase 138 units/L (55-170) 11/16/20 10:15 Total Protein 7.9 g/dL (6.3-8.2) 11/16/20 10:15 Albumin 2.7 g/dL (3.9-5) L 11/16/20 10:15 Albumin/Globulin Ratio 0.5 % 11/16/20 10:15 Microbiology: Microbiology 11/16/20 10:15 Peripheral/Venous Blood Culture - Preliminary Culture in Progress 11/16/20 10:15 Peripheral/Venous Blood Culture - Preliminary Culture in Progress
--- NOTE | 2020-11-16 12:06 | History and Physical Report ---
History of Present Illness Chief complaint: My foot hurts History of present illness: 45 YO Male with DM,HTN, HLD, Obesity Hypoventilation Syndrome, CKD, CHF, PAD, Osteomyelitis, Nicotine Dependence presents to ED for evaluation. Pt reports "my foot hurts". Patient states that he has experienced pain in his right lower extremity over the past 1 week with persistently worsening symptoms over the past 2 days. Patient states that his pain is 5/10, constant, worsened with weightbearing, relieved with nonweightbearing. EMS was notified and upon arrival the patient was found to be in distress and subsequently transported to [facility] for further care and evaluation of the aforementioned symptoms. The patient was seen and evaluated in the emergency department. All lab and imaging studies reviewed. The patient was found to have right lower extremity osteomyelitis, right lower extremity cellulitis, sepsis, acute kidney injury, metabolic acidosis, uncontrolled diabetes, as well as accelerated hypertension. Pt admi tted to surgical floor and initiated on sepsis protocol. Surgical team consulted in ED, Nephrology team consulted in ED. Pt denies fever, chills, CP, Palpitations, NVD, Trauma, BRBPR, recent ill contacts, or known exposure to COVID-19. Prior admission on 09/22/2020 reviewed. All medication listed at time of admission has been reconciled. Past History Past Medical History: arthritis, diabetes, heart failure, hypertension, hyperlipidemia, other (See HPI) Past Surgical History: Other (Chest tubes,) Social history: single, Lives alone, smoking Family history: diabetes, hypertension Medications and Allergies Allergies Allergy/AdvReac Type Severity Reaction Status Date / Time oxycodone [From Percocet] AdvReac Vomiting Verified 09/24/20 18:07 Home Medications Medication Instructions Recorded Confirmed Last Taken Type Pravastatin [Pravachol] 20 mg PO QHS #30 tablet 04/20/18 10/08/20 Unknown Rx Amlodipine Besylate [Norvasc] 10 mg PO DAILY 12/06/18 10/08/20 Unknown History Gabapentin 300 mg PO Q8HR 12/06/18 10/08/20 Unknown History Albuterol Mdi (or & Nicu Only) 2 puff IH QID PRN #1 inhalation 08/24/20 10/08/20 Unknown Rx [ProAir HFA Inhaler] Benzonatate [Tessalon Perles] 100 mg PO Q8HR #10 capsule 08/24/20 10/08/20 Unknown Rx DAPTOmycin 800 mg IV Q24H vial 09/28/20 10/08/20 Unknown Rx Insulin NPH/Regular [NovoLIN 70/30] 35 unit SUB-Q BIDDIAB #12 ml 09/28/2009/12 Unknown Rx Metoprolol [Lopressor TAB] 25 mg PO BID #60 tablet 09/28/20 10/08/20 Unknown Rx Oxycodone HCl/Acetaminophen 1 each PO Q8HR PRN #8 tablet 09/28/20 10/08/20 Unknown Rx [Percocet 7.5/325 mg] hydrALAZINE [Apresoline TAB] 100 mg PO Q8HR #90 tab 09/28/20 10/08/20 Unknown Rx DAPTOmycin 800 mg IV Q48H vial 10/13/20 Unknown Rx HYDROcodone/APAP 5-325 [[place] 1 each PO Q6HR PRN #14 tablet 10/13/20 Unknown Rx 5-325 mg TAB] levoFLOXacin [Levaquin] 750 mg PO Q48H 20 Days #10 tablet 10/13/20 Unknown Rx Active Meds: Active Medications Vancomycin HCl 2,000 mg/ (Sodium Chloride) 540 mls @ 333 mls/hr IV ONCE ONE; Protocol Stop: 11/16/20 12:07 Last Admin: 11/16/20 11:08 Dose: 333 mls/hr Documented by: Sodium Chloride (Nacl 0.9% 1000 Ml) 2,550 mls @ 999 mls/hr IV BOLUS ONE Stop: 11/16/20 12:59 Last Admin: 11/16/20 10:29 Dose: 999 mls/hr Documented by: Review of Systems Constitutional: no weight loss, no weight gain, no fever, no chills Ears, nose, mouth and throat: no ear pain, no ear discharge, no decreased hearing, no nose pain, no nasal discharge Cardiovascular: no chest pain, no palpitations, no edema, no syncope Respiratory: no cough, no cough with sputum, no hemoptysis, no shortness of breath Gastrointestinal: no nausea, no diarrhea, no constipation Genitourinary Male: no hematuria, no flank pain, no discharge, no urinary frequency, no urinary hesitancy Rectal: no pain, no incontinence, no bleeding Musculoskeletal: other (Foot pain), no neck stiffness, no low back pain, no shooting leg pain, no leg numbness/tingling Integumentary: no rash, no pruritis, no jaundice Neurological: no head injury, no numbness, no tingling, no ataxia Psychiatric: no anxiety, no change in sleep habits, no insomnia, no disorientation Endocrine: no cold intolerance, no excessive thirst Hematologic/Lymphatic: no easy bruising Allergic/Immunologic: no urticaria, no allergic rhinitis, no wheezing, no persistent infections Exam - Constitutional Vitals: Temp Pulse Resp BP Pulse Ox 98.6 F 97 H 18 188/104 100 11/16/20 09:22 11/16/20 10:42 11/16/20 10:42 11/16/20 10:42 11/16/20 10:42 General appearance: Present: mild distress, obese - EENT Eyes: Present: PERRL ENT: hearing intact, clear oral mucosa - Neck Neck: Present: supple, normal ROM - Respiratory Respiratory effort: normal Respiratory: bilateral: CTA - Cardiovascular Rhythm: other (Tachycardia) Heart Sounds: Present: S1 & S2. Absent: rub, click - Extremities Extremities: pulses symmetrical Extremity abnormal: edema, erythema, other (Right lower extremity) Peripheral Pulses: abnormal (Capillary refill greater than 3.5 seconds) - Abdominal General gastrointestinal: Present: soft, non-tender, non-distended, normal bowel sounds Male genitourinary: Present: normal - Integumentary Integumentary: Present: clear, warm, dry - Musculoskeletal Musculoskeletal: gait normal, strength equal bilaterally - Psychiatric Psychiatric: appropriate mood/affect, intact judgment & insight - Neurologic Neurologic: CNII-XII intact, moves all extremities Results - Labs CBC & Chem 7: 11/16/20 10:26 11/16/20 10:15 Labs: Abnormal lab results 11/16/20 11/16/20 11/16/20 Range/Units 09:52 10:15 10:15 WBC (4.5-11.0) K/mm3 RBC (3.65-5.03) M/mm3 Hgb (11.8-15.2) gm/dl Hct (35.5-45.6) % MCV (84-94) fl MCH (28-32) pg MCHC (32-34) % RDW (13.2-15.2) % PT 15.1 H (12.2-14.9) Sec. INR 1.19 H (0.87-1.13) APTT 37.0 H (24.2-36.6) Sec. Sodium 127 L (137-145) mmol/L Carbon Dioxide 18 L (22-30) mmol/L BUN 36 H (9-20) mg/dL Creatinine 5.5 H (0.8-1.3) mg/dL Glucose 429 H (75-100) mg/dL POC Glucose 387 H (70-105) mg/dL Direct Bilirubin 0.5 H (0-0.2) mg/dL Alkaline Phosphatase 302 H (35-129) units/L Albumin 2.7 L (3.9-5) g/dL 11/16/20 Range/Units 10:26 WBC 23.1 H (4.5-11.0) K/mm3 RBC 3.52 L (3.65-5.03) M/mm3 Hgb 8.4 L (11.8-15.2) gm/dl Hct 26.7 L (35.5-45.6) % MCV 76 L (84-94) fl MCH 24 L (28-32) pg MCHC 31 L (32-34) % RDW 18.2 H (13.2-15.2) % PT (12.2-14.9) Sec. INR (0.87-1.13) APTT (24.2-36.6) Sec. Sodium (137-145) mmol/L Carbon Dioxide (22-30) mmol/L BUN (9-20) mg/dL Creatinine (0.8-1.3) mg/dL Glucose (75-100) mg/dL POC Glucose (70-105) mg/dL Direct Bilirubin (0-0.2) mg/dL Alkaline Phosphatase (35-129) units/L Albumin (3.9-5) g/dL Assessment and Plan - Patient Problems (1) Sepsis Current Visit: Yes Status: Acute Plan to address problem: Sepsis protocol: CBC, CMP, IV antibiotic therapy, serial lactic acid, IV fluid resuscitation therapy, blood culture, maintain mean arterial pressure greater than or equal to 65 (2) Acute kidney injury superimposed on CKD Current Visit: Yes Status: Acute Plan to address problem: Nephrology team consulted in ED, strict I's/O, monitor urine output every shift, avoid nephrotoxic agents. (3) Osteomyelitis of foot, right, acute Current Visit: Yes Status: Acute Plan to address problem: CT scan right lower extremity, supportive care, surgical team consulted, surgical intervention as per surgical team. (4) Peripheral vascular disease Current Visit: Yes Status: Acute Plan to address problem: Supportive care, continue medical management. (5) MRSA cellulitis Current Visit: No Status: Acute Plan to address problem: CBC, CMP, blood culture, wound culture, IV antibiotic therapy, supportive care. (6) Metabolic acidosis Current Visit: No Status: Acute Plan to address problem: IV fluid resuscitation therapy, BMP, repeat BMP in a.m., treat sepsis. (7) CHF (congestive heart failure) Current Visit: No Status: Chronic Qualifiers: Heart failure type: diastolic Plan to address problem: Strict I's/O, monitor urine output every shift, daily weight, afterload reduction, blood pressure control, supplemental oxygen, (8) Diabetes mellitus with hyperglycemia Current Visit: No Status: Chronic Qualifiers: Diabetes mellitus type: type 2 Plan to address problem: Consistent carbohydrate diet, sliding scale insulin, Accu-Chek, hypoglycemia protocol (9) HLD (hyperlipidemia) Current Visit: No Status: Chronic Qualifiers: Hyperlipidemia type: mixed hyperlipidemia Plan to address problem: Lipid panel, statin therapy, supportive care. Low-cholesterol diet, (10) DVT prophylaxis Current Visit: Yes Status: Acute Plan to address problem: SCDs bilateral lower extremities while in bed, initiate anticoagulation after surgical intervention.
[2020-11-16] MEDS ORDERED: NON-FORMULARY EACH (Oxycodone Hcl/Acetaminophen [Percocet 7.5/325 Mg] 1 EACH Tablet) PO PRN (12:10)
[2020-11-16] MEDS ORDERED: SODIUM CHLORIDE 0.9% 1000 ML IV SOLN IV ONE (12:12)
[2020-11-16 12:15] LABS: Total Cells Counted 100
[2020-11-16 12:16] LABS: Giant Platelets Rare; Hypochromasia 1+; Platelet Clumps Few; Platelet Estimate Consistent w Auto
[2020-11-16 12:18] LABS: RBC Morphology Normal; Schistocytes Rare
[2020-11-16] MEDS ORDERED: ACETAMINOPHEN 325 MG TAB PO PRN (12:30)
[2020-11-16] MEDS ORDERED: ALBUTEROL 2.5 MG/3 ML NEBU IH PRN (12:30)
[2020-11-16] MEDS ORDERED: DEXTROSE 50% IN WATER (25GM) 50 ML SYRINGE IV PRN (12:30)
[2020-11-16] MEDS ORDERED: ONDANSETRON 4 MG/2 ML INJ IV PRN (12:30)
--- NOTE | 2020-11-16 12:32 | Consultation ---
History of Present Illness Consult date: 11/16/20 Chief complaint: Right foot wound/pain - History of present illness History of present illness: 45 yo non-compliant diabetic male s/p TMA of right 3-5th toes on 10/10/20. He never followed up in [facility] after discharge. When I asked him why he never came in for f/u, he stated that the [facility] phone lines didn't work and they just rang and rang. He had Vascular surgery and nephrology evaluations during his last hospitalization. HD was recommended but pt refused. The vascular status of his RLE could not be determined because the contrast would likely worsen his CKD. Pt was discharged on 10/13/20. Path report related to his TMA revealed residual osteomyelitis at the margins of his TMA's. Past History Past Medical History: diabetes, hypertension Medications and Allergies Allergies Allergy/AdvReac Type Severity Reaction Status Date / Time oxycodone [From Percocet] AdvReac Vomiting Verified 09/24/20 18:07 Home Medications Medication Instructions Recorded Confirmed Last Taken Type Pravastatin [Pravachol] 20 mg PO QHS #30 tablet 04/20/18 10/08/20 Unknown Rx Amlodipine Besylate [Norvasc] 10 mg PO DAILY 12/06/18 10/08/20 Unknown History Gabapentin 300 mg PO Q8HR 12/06/18 10/08/20 Unknown History Albuterol Mdi (or & Nicu Only) 2 puff IH QID PRN #1 inhalation 08/24/20 10/08/20 Unknown Rx [ProAir HFA Inhaler] Benzonatate [Tessalon Perles] 100 mg PO Q8HR #10 capsule 08/24/20 10/08/20 Unknown Rx DAPTOmycin 800 mg IV Q24H vial 09/28/20 10/08/20 Unknown Rx Insulin NPH/Regular [NovoLIN 70/30] 35 unit SUB-Q BIDDIAB #12 ml 09/28/20 10/08/20 Unknown Rx Metoprolol [Lopressor TAB] 25 mg PO BID #60 tablet 09/28/20 10/08/20 Unknown Rx Oxycodone HCl/Acetaminophen 1 each PO Q8HR PRN #8 tablet 09/28/20 10/08/20 Unknown Rx [Percocet 7.5/325 mg] hydrALAZINE [Apresoline TAB] 100 mg PO Q8HR #90 tab 09/28/20 10/08/20 Unknown Rx DAPTOmycin 800 mg IV Q48H vial 10/13/20 Unknown Rx HYDROcodone/APAP 5-325 [[place] 1 each PO Q6HR PRN #14 tablet 10/13/20 Unknown Rx 5-325 mg TAB] levoFLOXacin [Levaquin] 750 mg PO Q48H 20 Days #10 tablet 10/13/20 Unknown Rx Active Meds: Active Medications Acetaminophen (Acetaminophen 325 Mg Tab) 650 mg PO Q6H PRN PRN Reason: Pain, Mild (1-3) Hydrocodone Bitart/Acetaminophen (Hydrocodone/Acetaminophen 5-325 Mg Tab) 1 each PO Q6HR PRN PRN Reason: PAIN Albuterol (Albuterol 2.5 Mg/3 Ml Nebu) 2.5 mg IH Q4HRT PRN PRN Reason: Shortness Of Breath Benzonatate (Benzonatate 100 Mg Cap) 100 mg PO Q8HR BARRY Dextrose (Dextrose 50% In Water (25gm) 50 Ml Syringe) 50 ml IV Q30MIN PRN; Protocol PRN Reason: Hypoglycemia Famotidine (Famotidine 20 Mg Tab) 20 mg PO BID BARRY Gabapentin (Gabapentin 300 Mg Cap) 300 mg PO Q8HR BARRY Hydralazine HCl (Hydralazine 100 Mg Tab) 100 mg PO Q8HR BARRY Hydralazine HCl (Hydralazine 20 Mg/1 Ml Inj) 10 mg IV Q6HR PRN PRN Reason: Hypertension Hydromorphone HCl (Hydromorphone 1 Mg/1 Ml Inj) 0.25 mg IV Q4H PRN PRN Reason: Pain, Moderate (4-6) Sodium Chloride (Nacl 0.9% 1000 Ml) 2,550 mls @ 999 mls/hr IV BOLUS ONE Stop: 11/16/20 12:59 Last Admin: 11/16/20 10:29 Dose: 999 mls/hr Documented by: Insulin Human Regular (Insulin Regular, Human 100 Units/1 Ml) 0 units SUB-Q Q6HR [facility]; Protocol Metoprolol Tartrate (Metoprolol Tartrate 25 Mg Tab) 25 mg PO BID BARRY Miscellaneous Medication (Oxycodone Hcl/Acetaminophen [Percocet 7.5/325 Mg]) 1 each PO Q8HR PRN PRN Reason: PAIN Ondansetron HCl (Ondansetron 4 Mg/2 Ml Inj) 4 mg IV Q8H PRN PRN Reason: Nausea And Vomiting Pravastatin Sodium (Pravastatin 20 Mg Tab) 20 mg PO QHS BARRY Sodium Chloride (Sodium Chloride 0.9% 10 Ml Flush Syringe) 10 ml IV BID BARRY Sodium Chloride (Sodium Chloride 0.9% 10 Ml Flush Syringe) 10 ml IV PRN PRN PRN Reason: LINE FLUSH Sodium Chloride (Sodium Chloride 0.9% 1000 Ml Iv Soln) 4,150 ml 30 ml/kg (4150 ml) IV ONCE ONE Stop: 11/16/20 12:13 Review of Systems All systems: negative (none.) Exam Vital Signs Temp Pulse Resp BP Pulse Ox 98.6 F 95 H 18 156/105 97 11/16/20 09:22 11/16/20 09:22 11/16/20 09:22 11/16/20 09:22 11/16/20 09:22 - General physical appearance Positive: well developed, well nourished, no distress - Eyes Positive: PERRL, normal occular movement - ENT Positive: normal pinna, normal nares, normal mucosa, no hearing loss, no congestion - Neck Positive: no masses, no bruits, trachea midline, no venous distension - Respiratory Positive: normal expansion, normal respiratory effort, clear to auscultation - Cardiovascular Rhythm: regular Heart Sounds: Present: S1 & S2. Absent: rub, click - Extremities Extremities: no ischemia, pulses symmetrical, No edema - Breasts Breasts: normal, no mass, no skin changes - Abdomen Abdomen: Present: soft, bowel sounds normal. Absent: tender, distended Hernia: none - Genitourinary Male Genitourinary: normal Female Genitourinary: normal - Integumentary no rash, no growths, other (There is a 6 X 6 cm surgical defect of the right lateral foot. This is covered with biofilm and a small amount of necrotic tissue but there is no obvious associated abscess. Right DP is non-palpable. Right leg and foot appears edematous c/w the left leg and foot.) - Neurologic Neurologic: alert and oriented to time, place and person, motor strength and sensation are grossly intact - Musculoskeletal normal gait, normal posture - Psychiatric Psychiatric: appropriate mood/affect, intact judgment & insight Results - Labs 11/16/20 10:26 11/16/20 10:15 Abnormal lab results 11/16/20 11/16/20 11/16/20 Range/Units 09:52 10:15 10:15 WBC (4.5-11.0) K/mm3 RBC (3.65-5.03) M/mm3 Hgb (11.8-15.2) gm/dl Hct (35.5-45.6) % MCV (84-94) fl MCH (28-32) pg MCHC (32-34) % RDW (13.2-15.2) % Seg Neuts % (Manual) (40.0-70.0) % Lymphocytes % (Manual) (13.4-35.0) % Monocytes % (Manual) (0.0-7.3) % Seg Neutrophils # Man (1.8-7.7) K/mm3 Monocytes # (Manual) (0.0-0.8) K/mm3 Eosinophils # (Manual) (0.0-0.4) K/mm3 PT 15.1 H (12.2-14.9) Sec. INR 1.19 H (0.87-1.13) APTT 37.0 H (24.2-36.6) Sec. Sodium 127 L (137-145) mmol/L Carbon Dioxide 18 L (22-30) mmol/L BUN 36 H (9-20) mg/dL Creatinine 5.5 H (0.8-1.3) mg/dL Glucose 429 H (75-100) mg/dL POC Glucose 387 H (70-105) mg/dL Direct Bilirubin 0.5 H (0-0.2) mg/dL Alkaline Phosphatase 302 H (35-129) units/L Albumin 2.7 L (3.9-5) g/dL 11/16/20 Range/Units 10:26 WBC 23.1 H (4.5-11.0) K/mm3 RBC 3.52 L (3.65-5.03) M/mm3 Hgb 8.4 L (11.8-15.2) gm/dl Hct 26.7 L (35.5-45.6) % MCV 76 L (84-94) fl MCH 24 L (28-32) pg MCHC 31 L (32-34) % RDW 18.2 H (13.2-15.2) % Seg Neuts % (Manual) 77.0 H (40.0-70.0) % Lymphocytes % (Manual) 13.0 L (13.4-35.0) % Monocytes % (Manual) 8.0 H (0.0-7.3) % Seg Neutrophils # Man 17.8 H (1.8-7.7) K/mm3 Monocytes # (Manual) 1.8 H (0.0-0.8) K/mm3 Eosinophils # (Manual) 0.5 H (0.0-0.4) K/mm3 PT (12.2-14.9) Sec. INR (0.87-1.13) APTT (24.2-36.6) Sec. Sodium (137-145) mmol/L Carbon Dioxide (22-30) mmol/L BUN (9-20) mg/dL Creatinine (0.8-1.3) mg/dL Glucose (75-100) mg/dL POC Glucose (70-105) mg/dL Direct Bilirubin (0-0.2) mg/dL Alkaline Phosphatase (35-129) units/L Albumin (3.9-5) g/dL Diabetes panel 11/16/20 Range/Units 10:15 Sodium 127 L (137-145) mmol/L Potassium 4.4 (3.6-5.0) mmol/L Chloride 98.5 (98-107) mmol/L Carbon Dioxide 18 L (22-30) mmol/L BUN 36 H (9-20) mg/dL Creatinine 5.5 H (0.8-1.3) mg/dL Glucose 429 H (75-100) mg/dL Calcium 8.9 (8.4-10.2) mg/dL AST 12 (5-40) units/L ALT 19 (7-56) units/L Alkaline Phosphatase 302 H (35-129) units/L Total Protein 7.9 (6.3-8.2) g/dL Albumin 2.7 L (3.9-5) g/dL Calcium panel 11/16/20 Range/Units 10:15 Calcium 8.9 (8.4-10.2) mg/dL Albumin 2.7 L (3.9-5) g/dL Pituitary panel 11/16/20 Range/Units 10:15 Sodium 127 L (137-145) mmol/L Potassium 4.4 (3.6-5.0) mmol/L Chloride 98.5 (98-107) mmol/L Carbon Dioxide 18 L (22-30) mmol/L BUN 36 H (9-20) mg/dL Creatinine 5.5 H (0.8-1.3) mg/dL Glucose 429 H (75-100) mg/dL Calcium 8.9 (8.4-10.2) mg/dL Adrenal panel 11/16/20 Range/Units 10:15 Sodium 127 L (137-145) mmol/L Potassium 4.4 (3.6-5.0) mmol/L Chloride 98.5 (98-107) mmol/L Carbon Dioxide 18 L (22-30) mmol/L BUN 36 H (9-20) mg/dL Creatinine 5.5 H (0.8-1.3) mg/dL Glucose 429 H (75-100) mg/dL Calcium 8.9 (8.4-10.2) mg/dL Total Bilirubin 0.70 (0.1-1.2) mg/dL AST 12 (5-40) units/L ALT 19 (7-56) units/L Alkaline Phosphatase 302 H (35-129) units/L Total Protein 7.9 (6.3-8.2) g/dL Albumin 2.7 L (3.9-5) g/dL Assessment and Plan - Patient Problems (1) Osteomyelitis of foot, right, acute Current Visit: Yes Status: Acute Plan to address problem: 1) Venous doppler of the RLE 2) Nephrology consult 3) Vascular surgery consult - Dr. Taveras's group 4) Wound care nurse consult 5) Strict DM management 6) Broad spectrum IV antibiotics 7) ID consult
[2020-11-16] MEDS ORDERED: DAPTOmycin 500 MG VIAL IV SCH (13:00)
[2020-11-16] MEDS ORDERED: VANCOMYCIN PHARMACY TO DOSE IV SCH (13:00)
[2020-11-16] MEDS: INSULIN REGULAR, HUMAN 100 UNITS/1 ML SUB-Q SCH ×2 (13:22→18:31)
--- NOTE | 2020-11-16 15:15 | Consultation ---
History of Present Illness - Reason for Consult Consult date: 11/16/20 acute renal failure Requesting physician: QUITA GAN - History of Present Illness This is a 45 yo M with past medical history of Hypertension, type 2 DM, CHF, peripheral artery disease, diabetic foot, osteomyelitis, progressive CKD stage 4, who presents to ER with complaints of worsening RLE pain, which interferes with ambulation. CT Rt LE showed severe diffuse soft tissue swelling consistent with cellulitis. Also e/p osteomyelitis of the distal second metatarsal and second toe centered around MTP joint seen. Labs also showed significantly elevated WBCs > 23k along with elevated BUN/Cr at 36/5.5mg/dl (worsening from previous BUN/Cr at 18/4.1 on 10/13/20) and hyponatremia (na 127) in the setting of hyperglycemia. patient is admitted for management of cellulitis/osteo and sepsis and was initiated on IV ABXs treatment and further surgical evaluation. Pt is initiated on IV vanco and zosyn. Renal consult is requested for management of SHERLY on CKD. Patient is well known to our group from previous hospitalizations, when he underwent transmetatarsal amputation of his Rt third/fourth and fifth toe on 10/10/20. Given advanced renal failure, we discussed extensively with patient that he will need to be started on renal replacement therapy given further need for possible revascularization pre or postoperatively. However pt expressed hesitancy to start hemodialysis and also declined angiogram at this time for revascularization purposes at that time. Past History Past Medical History: arthritis, diabetes, heart failure, hypertension, hyperlipidemia, other (See HPI) Past Surgical History: Other (Chest tubes,) Social history: single, Lives alone, smoking Family history: diabetes, hypertension Medications and Allergies Allergies Allergy/AdvReac Type Severity Reaction Status Date / Time oxycodone [From Percocet] AdvReac Vomiting Verified 09/24/20 18:07 Home Medications Medication Instructions Recorded Confirmed Last Taken Type Pravastatin [Pravachol] 20 mg PO QHS #30 tablet 04/20/18 10/08/20 Unknown Rx Amlodipine Besylate [Norvasc] 10 mg PO DAILY 12/06/18 10/08/20 Unknown History Gabapentin 300 mg PO Q8HR 12/06/18 10/08/20 Unknown History Albuterol Mdi (or & Nicu Only) 2 puff IH QID PRN #1 inhalation 08/24/20 10/08/20 Unknown Rx [ProAir HFA Inhaler] Benzonatate [Tessalon Perles] 100 mg PO Q8HR #10 capsule 08/24/20 10/08/20 Unknown Rx DAPTOmycin 800 mg IV Q24H vial 09/28/20 10/08/20 Unknown Rx Insulin NPH/Regular [NovoLIN 70/30] 35 unit SUB-Q BIDDIAB #12 ml 09/28/20 10/08/20 Unknown Rx Metoprolol [Lopressor TAB] 25 mg PO BID #60 tablet 09/28/20 10/08/20 Unknown Rx Oxycodone HCl/Acetaminophen 1 each PO Q8HR PRN #8 tablet 09/28/20 10/08/20 Unk nown Rx [Percocet 7.5/325 mg] hydrALAZINE [Apresoline TAB] 100 mg PO Q8HR #90 tab 09/28/20 10/08/20 Unknown Rx DAPTOmycin 800 mg IV Q48H vial 10/13/20 Unknown Rx HYDROcodone/APAP 5-325 [[place] 1 each PO Q6HR PRN #14 tablet 10/13/20 Unknown Rx 5-325 mg TAB] levoFLOXacin [Levaquin] 750 mg PO Q48H 20 Days #10 tablet 10/13/20 Unknown Rx Active Meds: Active Medications Acetaminophen (Acetaminophen 325 Mg Tab) 650 mg PO Q6H PRN PRN Reason: Pain, Mild (1-3) Hydrocodone Bitart/Acetaminophen (Hydrocodone/Acetaminophen 5-325 Mg Tab) 1 each PO Q6HR PRN PRN Reason: PAIN Albuterol (Albuterol 2.5 Mg/3 Ml Nebu) 2.5 mg IH Q4HRT PRN PRN Reason: Shortness Of Breath Benzonatate (Benzonatate 100 Mg Cap) 100 mg PO Q8HR BARRY Dextrose (Dextrose 50% In Water (25gm) 50 Ml Syringe) 50 ml IV Q30MIN PRN; Protocol PRN Reason: Hypoglycemia Famotidine (Famotidine 20 Mg Tab) 20 mg PO BID BARRY Gabapentin (Gabapentin 300 Mg Cap) 300 mg PO Q8HR BARRY Heparin Sodium (Porcine) (Heparin 5,000 Unit/1 Ml Vial) 5,000 unit SUB-Q Q8HR BARRY Hydralazine HCl (Hydralazine 100 Mg Tab) 100 mg PO Q8HR BARRY Hydralazine HCl (Hydralazine 20 Mg/1 Ml Inj) 10 mg IV Q6HR PRN PRN Reason: Hypertension Hydromorphone HCl (Hydromorphone 1 Mg/1 Ml Inj) 0.25 mg IV Q4H PRN PRN Reason: Pain, Moderate (4-6) Insulin Human Regular (Insulin Regular, Human 100 Units/1 Ml) 0 units SUB-Q Q6HR [facility]; Protocol Last Admin: 11/16/20 13:22 Dose: Not Given Documented by: Metoprolol Tartrate (Metoprolol Tartrate 25 Mg Tab) 25 mg PO BID BARRY Ondansetron HCl (Ondansetron 4 Mg/2 Ml Inj) 4 mg IV Q8H PRN PRN Reason: Nausea And Vomiting Pravastatin Sodium (Pravastatin 20 Mg Tab) 20 mg PO QHS BARRY Sodium Chloride (Sodium Chloride 0.9% 10 Ml Flush Syringe) 10 ml IV BID BARRY Sodium Chloride (Sodium Chloride 0.9% 10 Ml Flush Syringe) 10 ml IV PRN PRN PRN Reason: LINE FLUSH Sodium Chloride (Sodium Chloride 0.9% 1000 Ml Iv Soln) 4,150 ml 30 ml/kg (4150 ml) IV ONCE ONE Stop: 11/16/20 12:13 Review of Systems All systems: negative Constitutional: fatigue, weakness, malaise Respiratory: dyspnea on exertion Integumentary: rash, redness, wounds, foot/leg ulcers Exam - Vital Signs Vital signs: Vital Signs Temp Pulse Resp BP Pulse Ox 98.6 F 95 H 18 156/105 97 11/16/20 09:22 11/16/20 09:22 11/16/20 09:22 11/16/20 09:22 11/16/20 09:22 - General Appearance General appearance: well-developed, well-nourished, appears stated age EENT: ATNC, PERRL, mucous membranes moist Neck: Present: neck supple Respiratory: Clear to Ascultation Heart: regular, S1S2 Gastrointestinal: Present: normoactive bowel sounds, obese Integumentary: no rash Neurologic: no focal deficit, alert and oriented x3, strength 5/5, CN 3-12 intact Psychiatric: mood/affect appropriate, cooperative Results - Lab Results 11/16/20 10:26 11/16/20 10:15 Most recent lab results Calcium 8.9 mg/dL (8.4-10.2) 11/16/20 10:15 Magnesium 2.00 mg/dL (1.7-2.3) 11/16/20 10:15 Assessment and Plan - Patient Problems (1) Acute kidney injury superimposed on CKD Current Visit: Yes Status: Acute Plan to address problem: Patient has progressive chronic kidney disease likely at least stage IV at this point with worsening acute injury/superimposed pre-renal azotemia in the setting of sepsis and hyperglycemia. cont empiric ABXs with vanco/zosyn, s/p IV NS bolus. No emergent indication for renal replacement therapy at present. Had extensive discussion with patient, that he will need to prepared for future renal replacement therapy, especially in view of possible revascularization for RLE. Risk and benefits of HD discussed in length, patient is still hesitant to accept the need of HD at present. cont supportive care for SHERLY/CKD at present, avoid further nephrotoxins, NSAIDs, use smallest amount of IV contrast as possible. Will monitor lytes / renal parameters closely and make further recommendations. (2) Osteomyelitis of foot, right, acute Current Visit: Yes Status: Acute Plan to address problem: cont IV ABXs treatment with vanco/zosyn, dose renally adjusted. Appreciate surgery recommendations, pending vascular surgery evaluation. Wound care consulted. (3) Hyperosmolar non-ketotic state in patient with type 2 diabetes mellitus Current Visit: No Status: Acute Plan to address problem: Diabetes management as per primary attending (4) Peripheral vascular disease Current Visit: Yes Status: Acute Plan to address problem: follow vascular surgery regarding revascularization. Will continue discussion with patient regarding need of possible HD post revascularization procedure given advanced CKD (5) Hypertensive chronic kidney disease with stage 1 through stage 4 chronic kidney disease, or unspecified chronic kidney disease Current Visit: No Status: Acute Plan to address problem: monitor BP on current meds (6) Anemia in chronic illness Current Visit: Yes Status: Acute Plan to address problem: check iron store/ferritin level, start EPO [id number] q week
--- NOTE | 2020-11-16 15:18 | Vascular Lab Report ---
DUPLEX DOPPLER LOWER EXTREMITY VEINS, RIGHT INDICATION: edema of right leg/foot. TECHNIQUE: Duplex doppler imaging was performed through the veins of the right lower extremity using venous comp ression and other maneuvers. COMPARISON: No relevant prior imaging study available. FINDINGS: Right Common femoral vein: Negative. Right Superficial femoral vein: Negative. Right Popliteal vein: Negative. Right Calf veins: Negative. Additional findings: None.. IMPRESSION: 1. No sonographic evidence for DVT in the right lower extremity. Signer Name: Ryan Snyder MD Signed: 11/16/2020 3:13 PM Workstation Name: [id number]
[2020-11-16] MEDS: HYDROmorphone 1 MG/1 ML INJ IV PRN ×3 (15:20→22:23)
[2020-11-16] MEDS: HYDROcodone/ACETAMINOPHEN 5-325 MG TAB PO PRN (18:29)
[2020-11-16] MEDS: BENZONATATE 100 MG CAP PO SCH ×2 (18:30→22:24)
[2020-11-16] MEDS: GABAPENTIN 300 MG CAP PO SCH ×2 (18:30→22:25)
[2020-11-16] MEDS: HEPARIN 5,000 UNIT/1 ML VIAL SUB-Q SCH ×2 (18:30→22:26)
[2020-11-16] MEDS: hydrALAZINE 20 MG/1 ML INJ IV PRN (18:35)
[2020-11-16] MEDS: FAMOTIDINE 20 MG TAB PO SCH (22:23)
[2020-11-16] MEDS: METOPROLOL TARTRATE 25 MG TAB PO SCH (22:25)
[2020-11-16] MEDS: hydrALAZINE 100 MG TAB PO SCH ×2 (22:26)
[2020-11-16] MEDS: PRAVASTATIN 20 MG TAB PO SCH (22:27)
[2020-11-17] MEDS: INSULIN REGULAR, HUMAN 100 UNITS/1 ML SUB-Q SCH ×4 (00:15→13:07)
[2020-11-17] MEDS: hydrALAZINE 20 MG/1 ML INJ IV PRN ×2 (01:15→12:14)
[2020-11-17] MEDS: HYDROcodone/ACETAMINOPHEN 5-325 MG TAB PO PRN (01:30)
[2020-11-17 05:24] LABS: Basophils % (Auto) 0.2 % (0.0-1.8); Eosinophils # (Auto) 0.1 K/mm3 (0.0-0.4); Eosinophils % (Auto) 0.4 % (0.0-4.3); Hematocrit 26.8 % (35.5-45.6); Hemoglobin 8.6 gm/dl (11.8-15.2); Lymphocytes # (Auto) 1.1 K/mm3 (1.2-5.4); Lymphocytes % (Auto) 5.9 % (13.4-35.0); Mean Corpuscular HGB Conc 32 % (32-34); Mean Corpuscular Volume 76 fl (84-94); Monocytes # (Auto) 2.1 K/mm3 (0.0-0.8); Monocytes % (Auto) 10.7 % (0.0-7.3); Platelet Count 305 K/mm3 (140-440); Red Blood Count 3.53 M/mm3 (3.65-5.03)
[2020-11-17 05:40] LABS: Calcium 8.7 mg/dL (8.4-10.2)
[2020-11-17] MEDS: HEPARIN 5,000 UNIT/1 ML VIAL SUB-Q SCH ×3 (06:00→22:00)
[2020-11-17] MEDS: hydrALAZINE 100 MG TAB PO SCH ×3 (06:03→22:00)
[2020-11-17] MEDS: GABAPENTIN 300 MG CAP PO SCH ×3 (06:03→22:00)
[2020-11-17] MEDS: BENZONATATE 100 MG CAP PO SCH ×3 (06:04→22:00)
[2020-11-17] MEDS: HYDROmorphone 1 MG/1 ML INJ IV PRN ×5 (06:07→23:50)
[2020-11-17] MEDS: ACETAMINOPHEN 325 MG TAB PO PRN (06:19)
[2020-11-17] MEDS: METOPROLOL TARTRATE 25 MG TAB PO SCH ×2 (12:14→23:29)
[2020-11-17] MEDS: SODIUM CHLORIDE 0.9% 250ML 250 ML IV SCH ×2 (12:15→22:00)
[2020-11-17] MEDS: FAMOTIDINE 20 MG TAB PO SCH ×2 (12:19→22:00)
--- NOTE | 2020-11-17 13:55 | Progress Note ---
Assessment and Plan - Patient Problems (1) Acute kidney injury superimposed on CKD Current Visit: Yes Status: Acute Plan to address problem: Patient has progressed to stage IV at this time and is essentially borderline stage V chronic kidney disease. I highly anticipate that with the needed revascularization procedure secondary to his significant peripheral vascular disease that he will eventually need to be started on replacement therapy. I had previously discussed this with the patient at length on his prior hospitalization at that time he was hesitant to start hemodialysis. He did not follow-up with us in the outpatient office as instructed. He comes in at this time essentially with renal failure that has not shown any significant improv ement. He is symptoms of altered mental status may likely be due to pain medications given his poor renal function and clearance. Advised nursing staff to hold off on future doses of pain medication and dose accordingly. There are no acute indications for dialysis today and we will continue to monitor and provide appropriate supportive care. (2) Osteomyelitis of foot, right, acute Current Visit: Yes Status: Acute Plan to address problem: Surgical recommendations reviewed. Pending further evaluation by vascular surgery. Antibiotics to be dosed appropriately for his diminished renal function. (3) Peripheral vascular disease Current Visit: Yes Status: Chronic Plan to address problem: Pending for the follow-up by vascular surgery (4) Anemia in chronic illness Current Visit: Yes Status: Chronic Plan to address problem: Transfuse to maintain hemoglobin above 7. (5) Hyperglycemia Current Visit: Yes Status: Acute Plan to address problem: Management per primary attending. (6) Hypertension Current Visit: Yes Status: Chronic Qualifiers: Subjective Date of service: 11/17/20 Interval history: Patient lethargic on examination today. She had just received a dose of Dilaudid before my examination. Discussed case with RN at bedside. Renal function labs reviewed and overall stable. Pending vascular surgery consult. Objective - Vital Signs Vital signs: Vital Signs - 12hr 11/17/20 11/17/20 11/17/20 04:43 07:49 07:50 Temperature 99.6 F 98.3 F Pulse Rate 126 H 98 H Respiratory 20 20 Rate Blood Pressure 184/89 124/103 O2 Sat by Pulse 99 97 Oximetry 11/17/20 11:21 Temperature 98.5 F Pulse Rate 125 H Respiratory 20 Rate Blood Pressure 187/95 O2 Sat by Pulse 96 Oximetry - General Appearance General appearance: appears stated age, obese EENT: ATNC Neck: no JVD Respiratory: Present: Clear to Ascultation Cardiology: regular Gastrointestinal: normal Integumentary: ulcer Neurologic: confused, disoriented - Lab 11/17/20 05:10 11/17/20 05:10 Most recent lab results Calcium 8.7 mg/dL (8.4-10.2) 11/17/20 05:10 Magnesium 2.00 mg/dL (1.7-2.3) 11/16/20 10:15 - Allied health notes Allied health notes reviewed: nursing Medications & Allergies - Medications Allergies/Adverse Reactions: Allergies oxycodone [From Percocet] Adverse Reaction (Verified 09/24/20 18:07) Vomiting Home Medications: Home Medications Medication Instructions Recorded Confirmed Last Taken Type Pravastatin [Pravachol] 20 mg PO QHS #30 tablet 04/20/18 11/16/20 Unknown Rx Amlodipine Besylate [Norvasc] 10 mg PO DAILY 12/06/18 11/16/20 Unknown History Gabapentin 300 mg PO Q8HR 12/06/18 11/16/20 Unknown History Albuterol Mdi (or & Nicu Only) 2 puff IH QID PRN #1 inhalation 08/24/20 11/16/20 Unknown Rx [ProAir HFA Inhaler] Benzonatate [Tessalon Perles] 100 mg PO Q8HR #10 capsule 08/24/20 11/16/20 Unknown Rx DAPTOmycin 800 mg IV Q24H vial 09/28/20 11/16/20 Unknown Rx Insulin NPH/Regular [NovoLIN 70/30] 35 unit SUB-Q BIDDIAB #12 ml 09/28/20 11/16/20 Unknown Rx Metoprolol [Lopressor TAB] 25 mg PO BID #60 tablet 09/28/20 11/16/20 Unknown Rx hydrALAZINE [Apresoline TAB] 100 mg PO Q8HR #90 tab 09/28/20 11/16/20 Unknown Rx HYDROcodone/APAP 5-325 [[place] 1 each PO Q6HR PRN #14 tablet 10/13/20 11/16/20 Unknown Rx 5-325 mg TAB] Active Medications: Generic Name Dose Route Start Last Admin Trade Name Freq PRN Reason Stop Dose Admin Acetaminophen 650 mg 11/16/20 12:30 11/17/20 06:19 Acetaminophen 325 Mg Tab PO 650 mg Q6H PRN Administration Pain, Mild (1-3) Hydrocodone Bitart/Acetaminophen 1 each 11/16/20 12:23 11/17/20 01:30 Hydrocodone/Acetaminophen 5-325 Mg Tab PO 1 each Q6HR PRN Administration PAIN Albuterol 2.5 mg 11/16/20 12:30 Albuterol 2.5 Mg/3 Ml Nebu IH Q4HRT PRN Shortness Of Breath Benzonatate 100 mg 11/16/20 14:00 11/17/20 06:04 Benzonatate 100 Mg Cap PO Not Given Q8HR BARRY Dextrose 50 ml 11/16/20 12:30 Dextrose 50% In Water (25gm) 50 Ml Syringe IV Q30MIN PRN Hypoglycemia Protocol Famotidine 20 mg 11/16/20 22:00 11/17/20 12:19 Famotidine 20 Mg Tab PO Not Given BID [facility] Gabapentin 300 mg 11/16/20 14:00 11/17/20 13:07 Gabapentin 300 Mg Cap PO Not Given Q8HR [facility] Heparin Sodium (Porcine) 5,000 unit 11/16/20 14:00 11/17/20 06:00 Heparin 5,000 Unit/1 Ml Vial SUB-Q 5,000 unit Q8HR [facility] Administration Hydralazine HCl 100 mg 11/16/20 14:00 11/17/20 13:07 Hydralazine 100 Mg Tab PO Not Given Q8HR [facility] Hydralazine HCl 10 mg 11/16/20 12:30 11/17/20 12:14 Hydralazine 20 Mg/1 Ml Inj IV 10 mg Q6HR PRN Administration Hypertension Hydromorphone HCl 1 mg 11/17/20 09:00 11/17/20 12:48 Hydromorphone 1 Mg/1 Ml Inj IV 1 mg Q3H PRN Administration Pain , Severe (7-10) Sodium Chloride 250 mls @ 250 mls/hr 11/17/20 10:00 11/17/20 12:15 Nacl 0.9% 250ml IV 250 mls/hr Q12HR [facility] Administration Insulin Human Regular 0 units 11/16/20 13:00 11/17/20 13:07 Insulin Regular, Human 100 Units/1 Ml SUB-Q Not Given Q6HR [facility] Protocol Metoprolol Tartrate 25 mg 11/16/20 22:00 11/17/20 12:14 Metoprolol Tartrate 25 Mg Tab PO 25 mg BID BARRY Administration Ondansetron HCl 4 mg 11/16/20 12:30 Ondansetron 4 Mg/2 Ml Inj IV Q8H PRN Nausea And Vomiting Pravastatin Sodium 20 mg 11/16/20 22:00 11/16/20 22:27 Pravastatin 20 Mg Tab PO 20 mg QHS BARRY Administration Sodium Chloride 10 ml 11/16/20 22:00 11/16/20 22:27 Sodium Chloride 0.9% 10 Ml Flush Syringe IV 10 ml BID BARRY Administration Sodium Chloride 10 ml 11/16/20 12:07 Sodium Chloride 0.9% 10 Ml Flush Syringe IV PRN PRN LINE FLUSH
--- NOTE | 2020-11-17 16:43 | Progress Note ---
Assessment and Plan Assessment and Plan - Patient Problems (1) Sepsis Current Visit: Yes Status: Acute Plan to address problem: Sepsis protocol: CBC, CMP, IV antibiotic therapy, serial lactic acid, IV fluid resuscitation therapy, blood culture, maintain mean arterial pressure greater than or equal to 65 Continue IV vancomycin Wound care Patient refuses TMA Patient refuses vascular intervention (2) Acute kidney injury superimposed on CKD Current Visit: Yes Status: Acute Plan to address problem: Nephrology team consulted in ED, strict I surgery intervention/O, monitor urine output every shift, avoid nephrotoxic agents. IV fluids (3) Osteomyelitis of foot, right, acute Current Visit: Yes Status: Acute Plan to address problem: CT scan right lower extremity, supportive care, surgical team consulted, surgical intervention as per surgical team. Patient refuses any TMA or any other intervention Also refuses any vascular surgery intervention (4) Peripheral vascular disease Current Visit: Yes Status: Acute Plan to address problem: Refuses angiogram because of contrast-induced worsening of kidney function (5) MRSA cellulitis Current Visit: No Status: Acute Plan to address problem: CBC, CMP, blood culture, wound culture, IV antibiotic therapy, supportive care. (6) Metabolic acidosis Current Visit: No Status: Acute Plan to address problem: IV fluid resuscitation therapy, BMP, repeat BMP in a.m., treat sepsis. (7) CHF (congestive heart failure) Current Visit: No Status: Chronic Qualifiers: Heart failure type: diastolic Plan to address problem: Strict I's/O, monitor urine output every shift, daily weight, afterload reduction, blood pressure control, supplemental oxygen, (8) IDDM h hyperglycemia Tight control of blood glucose levels Insulin levels adjusted (9) HLD (hyperlipidemia) Current Visit: No Status: Chronic Qualifiers: Hyperlipidemia type: mixed hyperlipidemia Plan to address problem: Continue statins (10)Hypertension Continue antihypertensives Adjust dosage (11) DVT prophylaxis Current Visit: Yes Status: Acute Plan to address problem: SCDs bilateral lower extremities while in bed, initiate anticoagulation after surgical intervention. Subjective Date of service: 11/18/20 Principal diagnosis: Right foot cellulitis Interval history: The patient is a 45-year-old male with a history of poorly controlled diabetes who is status post open transmetatarsal amputation of his right third through fifth toes. He presents to the emergency department with complaints of increasing pain of his right foot as well as increasing drainage from the wound. He also complains of increasing nausea and overall not feeling well. Labs reveal acute on chronic renal failure as well as a leukocytosis. Additionally he has blood cultures that are positive for Beta-hemolytic group B strep. He has been hospitalized in the past and offered angiograms for diagnostic purposes and possible intervention of tibial disease, with the use of CO2, however it was felt that it may require some contrast to adequately evaluate his disease process in this could possibly result in converting him to end-stage renal disease requiring hemodialysis. The patient has been adamant that he does not want to be on hemodialysis so he has declined any intervention on his lower extremity. Besides the pain in his foot he has no additional complaints at this time. 11/17/2020 Patient does not want hemodialysis Patient does not want any intervention on his lower extremities 11/18/2020 Patient refuses hemodialysis Patient refuses any surgical intervention on the right lower extremity Right foot wound draining Objective - Constitutional Vitals: Vital Signs - 12hr 11/17/20 11/17/20 11/17/20 07:49 07:50 11:21 Temperature 98.3 F 98.5 F Pulse Rate 98 H 125 H Respiratory 20 20 Rate Blood Pressure 124/103 187/95 O2 Sat by Pulse 97 96 Oximetry 11/17/20 16:01 Temperature 98.9 F Pulse Rate 105 H Respiratory 20 Rate Blood Pressure 141/84 O2 Sat by Pulse 90 Oximetry General appearance: Present: no acute distress, well-nourished - EENT Eyes: PERRL, EOM intact ENT: hearing intact, clear oral mucosa Ears: bilateral: normal - Neck Neck: supple, normal ROM - Respiratory Respiratory effort: normal Respiratory: bilateral: CTA - Breasts Breasts: normal - Cardiovascular Heart rate: 78 Rhythm: regular Heart Sounds: Present: S1 & S2. Absent: gallop, rub Extremities: pulses intact, No edema, normal color, Full ROM, abnormal (Right foot severely infected) Extremity abnormal: other (Right foot severely infected especially the near the third fourth fifth toes swelling of the dorsum of the foot and pus draining from the site third fourth fifth metatarsal area.) - Gastrointestinal General gastrointestinal: Present: soft, non-tender, non-distended, normal bowel sounds - Genitourinary Male genitourinary: normal - Integumentary Integumentary: clear, warm, dry - Musculoskeletal Musculoskeletal: 1, strength equal bilaterally - Neurologic Neurologic: moves all extremities - Psychiatric Psychiatric: memory intact, appropriate mood/affect, intact judgment & insight - Allied health notes Allied health notes reviewed: nursing, case management - Labs CBC & Chem 7: 11/17/20 05:10 11/17/20 05:10 Labs: Abnormal lab results 11/16/20 11/17/20 11/17/20 Range/Units 18:24 00:02 05:10 WBC 19.5 H (4.5-11.0) K/mm3 RBC 3.53 L (3.65-5.03) M/mm3 Hgb 8.6 L (11.8-15.2) gm/dl Hct 26.8 L (35.5-45.6) % MCV 76 L (84-94) fl MCH 25 L (28-32) pg RDW 18.0 H (13.2-15.2) % Lymph % (Auto) 5.9 L (13.4-35.0) % Jackson % (Auto) 10.7 H (0.0-7.3) % Lymph # (Auto) 1.1 L (1.2-5.4) K/mm3 [place] # (Auto) 2.1 H (0.0-0.8) K/mm3 Seg Neutrophils % 82.8 H (40.0-70.0) % Seg Neutrophils # 16.1 H (1.8-7.7) K/mm3 Sodium (137-145) mmol/L Carbon Dioxide (22-30) mmol/L BUN (9-20) mg/dL Creatinine (0.8-1.3) mg/dL Glucose (75-100) mg/dL POC Glucose 152 H 228 H (70-105) mg/dL 11/17/20 11/17/20 11/17/20 Range/Units 05:10 06:09 07:48 WBC (4.5-11.0) K/mm3 RBC (3.65-5.03) M/mm3 Hgb (11.8-15.2) gm/dl Hct (35.5-45.6) % MCV (84-94) fl MCH (28-32) pg RDW (13.2-15.2) % Lymph % (Auto) (13.4-35.0) % [place] % (Auto) (0.0-7.3) % Lymph # (Auto) (1.2-5.4) K/mm3 [place] # (Auto) (0.0-0.8) K/mm3 Seg Neutrophils % (40.0-70.0) % Seg Neutrophils # (1.8-7.7) K/mm3 Sodium 135 L D (137-145) mmol/L Carbon Dioxide 15 L (22-30) mmol/L BUN 35 H (9-20) mg/dL Creatinine 5.0 H (0.8-1.3) mg/dL Glucose 202 H (75-100) mg/dL POC Glucose 172 H 188 H (70-105) mg/dL
--- NOTE | 2020-11-17 16:46 | Progress Note ---
Assessment and Plan Assessment and Plan - Patient Problems (1) Sepsis Current Visit: Yes Status: Acute Plan to address problem: Sepsis protocol: CBC, CMP, IV antibiotic therapy, serial lactic acid, IV fluid resuscitation therapy, blood culture, maintain mean arterial pressure greater than or equal to 65 Continue IV vancomycin (2) Acute kidney injury superimposed on CKD Current Visit: Yes Status: Acute Plan to address problem: Nephrology team consulted in ED, strict I's/O, monitor urine output every shift, avoid nephrotoxic agents. (3) Osteomyelitis of foot, right, acute Current Visit: Yes Status: Acute Plan to address problem: CT scan right lower extremity, supportive care, surgical team consulted, surgical intervention as per surgical team. (4) Peripheral vascular disease Current Visit: Yes Status: Acute Plan to address problem: Supportive care, continue medical management. (5) MRSA cellulitis Current Visit: No Status: Acute Plan to address problem: CBC, CMP, blood culture, wound culture, IV antibiotic therapy, supportive care. Continue IV vancomycin (6) Metabolic acidosis Current Visit: No Status: Acute Plan to address problem: IV fluid resuscitation therapy, BMP, repeat BMP in a.m., treat sepsis. (7) CHF (congestive heart failure) Current Visit: No Status: Chronic Qualifiers: Heart failure type: diastolic Plan to address problem: Strict I's/O, monitor urine output every shift, daily weight, afterload reduction, blood pressure control, supplemental oxygen, (8) Diabetes mellitus with hyperglycemia Current Visit: No Status: Chronic Qualifiers: Diabetes mellitus type: type 2 Plan to address problem: Consistent carbohydrate diet, sliding scale insulin, Accu-Chek, hypoglycemia protocol (9) HLD (hyperlipidemia) Current Visit: No Status: Chronic Qualifiers: Hyperlipidemia type: mixed hyperlipidemia Plan to address problem: Lipid panel, statin therapy, supportive care. Low-cholesterol diet, 10)hypertension continue antihypertensives Adjust blood pressure medication (11) DVT prophylaxis Current Visit: Yes Status: Acute Plan to address problem: SCDs bilateral lower extremities while in bed, initiate anticoagulation after surgical intervention. Subjective Date of service: 11/17/20 Principal diagnosis: Right foot cellulitis Interval history: 45 YO Male with DM,HTN, HLD, Obesity Hypoventilation Syndrome, CKD, CHF, PAD, Osteomyelitis, Nicotine Dependence presents to ED for evaluation. Pt reports "my foot hurts". Patient states that he has experienced pain in his right lower extremity over the past 1 week with persistently worsening symptoms over the past 2 days. Patient states that his pain is 5/10, constant, worsened with weightbearing, relieved with nonweightbearing. EMS was notified and upon arrival the patient was found to be in distress and subsequently transported to [facility] for further care and evaluation of the aforementioned symptoms. The patient was seen and evaluated in the emergency department. All lab and imaging studies reviewed. The patient was found to have right lower extremity osteomyelitis, right lower extremity cellulitis, sepsis, acute kidney injury, metabolic acidosis, uncontrolled diabetes, as well as accelerated hypertension. Pt admitted to surgical floor and initiated on sepsis protocol. Surgical team consulted in ED, Nephrology team consulted in ED. Pt denies fever, chills, CP, Palpitations, NVD, Trauma, BRBPR, recent ill contacts, or known exposure to COVID-19. Prior admission on 09/22/2020 reviewed. All medication listed at time of admission has been reconciled. Objective - Constitutional Vitals: Vital Signs - 12hr 11/17/20 11/17/20 11/17/20 07:49 07:50 11:21 Temperature 98.3 F 98.5 F Pulse Rate 98 H 125 H Respiratory 20 20 Rate Blood Pressure 124/103 187/95 O2 Sat by Pulse 97 96 Oximetry 11/17/20 16:01 Temperature 98.9 F Pulse Rate 105 H Respiratory 20 Rate Blood Pressure 141/84 O2 Sat by Pulse 90 Oximetry General appearance: Present: no acute distress, well-nourished - EENT Eyes: PERRL, EOM intact ENT: hearing intact, clear oral mucosa Ears: bilateral: normal - Neck Neck: supple, normal ROM - Respiratory Respiratory effort: normal Respiratory: bilateral: CTA - Breasts Breasts: normal - Cardiovascular Rhythm: regular Heart Sounds: Present: S1 & S2. Absent: gallop, rub Extremities: pulses intact, No edema, normal color, Full ROM - Gastrointestinal General gastrointestinal: Present: soft, non-tender, non-distended, normal bowel sounds - Genitourinary Male genitourinary: normal - Integumentary Integumentary: clear, warm, dry - Musculoskeletal Musculoskeletal: 1, strength equal bilaterally - Neurologic Neurologic: moves all extremities - Psychiatric Psychiatric: memory intact, appropriate mood/affect, intact judgment & insight - Labs CBC & Chem 7: 11/17/20 05:10 11/17/20 05:10 Labs: Abnormal lab results 11/16/20 11/17/20 11/17/20 Range/Units 18:24 00:02 05:10 WBC 19.5 H (4.5-11.0) K/mm3 RBC 3.53 L (3.65-5.03) M/mm3 Hgb 8.6 L (11.8-15.2) gm/dl Hct 26.8 L (35.5-45.6) % MCV 76 L (84-94) fl MCH 25 L (28-32) pg RDW 18.0 H (13.2-15.2) % Lymph % (Auto) 5.9 L (13.4-35.0) % [place] % (Auto) 10.7 H (0.0-7.3) % Lymph # (Auto) 1.1 L (1.2-5.4) K/mm3 [place] # (Auto) 2.1 H (0.0-0.8) K/mm3 Seg Neutrophils % 82.8 H (40.0-70.0) % Seg Neutrophils # 16.1 H (1.8-7.7) K/mm3 Sodium (137-145) mmol/L Carbon Dioxide (22-30) mmol/L BUN (9-20) mg/dL Creatinine (0.8-1.3) mg/dL Glucose (75-100) mg/dL POC Glucose 152 H 228 H (70-105) mg/dL 11/17/20 11/17/20 11/17/20 Range/Units 05:10 06:09 07:48 WBC (4.5-11.0) K/mm3 RBC (3.65-5.03) M/mm3 Hgb (11.8-15.2) gm/dl Hct (35.5-45.6) % MCV (84-94) fl MCH (28-32) pg RDW (13.2-15.2) % Lymph % (Auto) (13.4-35.0) % [place] % (Auto) (0.0-7.3) % Lymph # (Auto) (1.2-5.4) K/mm3 [place] # (Auto) (0.0-0.8) K/mm3 Seg Neutrophils % (40.0-70.0) % Seg Neutrophils # (1.8-7.7) K/mm3 Sodium 135 L D (137-145) mmol/L Carbon Dioxide 15 L (22-30) mmol/L BUN 35 H (9-20) mg/dL Creatinine 5.0 H (0.8-1.3) mg/dL Glucose 202 H (75-100) mg/dL POC Glucose 172 H 188 H (70-105) mg/dL
[2020-11-17] MEDS ORDERED: ALBUTEROL 8.5 GM MDI INHALATION IH PRN (16:48)
[2020-11-17] MEDS ORDERED: AMPICILLIN/SULBACTA 1.5GM/50ML 1.5 GM/50 ML BAG IV SCH (17:00)
[2020-11-17] MEDS: INSULIN LISPRO 100 UNIT/ML SUB-Q SCH ×2 (17:44→22:00)
[2020-11-17] MEDS: INSULIN NPH/REGULAR 70/30 INJ SUB-Q SCH (17:44)
[2020-11-17] MEDS: AMPICILLIN/SULBACTA 1.5GM/50ML 1.5 GM/50 ML BAG IV SCH (17:52)
--- NOTE | 2020-11-17 18:43 | Consultation ---
History of Present Illness - Reason for Consult Consult date: 11/17/20 Nonhealing Right Open Transmetatarsal Amputation Requesting physician: FLEX TAN - History of Present Illness The patient is a 45-year-old male with a history of poorly controlled diabetes who is status post open transmetatarsal amputation of his right third through fifth toes. He presents to the emergency department with complaints of increasing pain of his right foot as well as increasing drainage from the wound. He also complains of increasing nausea and overall not feeling well. Labs reveal acute on chronic renal failure as well as a leukocytosis. Additionally he has blood cultures that are positive for Beta-hemolytic group B strep. He has been hospitalized in the past and offered angiograms for diagnostic purposes and possible intervention of tibial disease, with the use of CO2, however it was felt that it may require some contrast to adequately evaluate his disease pr ocess in this could possibly result in converting him to end-stage renal disease requiring hemodialysis. The patient has been adamant that he does not want to be on hemodialysis so he has declined any intervention on his lower extremity. Besides the pain in his foot he has no additional complaints at this time. Past History Past Medical History: arthritis, diabetes, heart failure, hypertension, hyperlipidemia, renal failure, other (See HPI) Past Surgical History: Other (Chest tubes,) Social history: single, Lives alone, smoking Family history: diabetes, hypertension Medications and Allergies Allergies Allergy/AdvReac Type Severity Reaction Status Date / Time oxycodone [From Percocet] AdvReac Vomiting Verified 09/24/20 18:07 Home Medications Medication Instructions Recorded Confirmed Last Taken Type Pravastatin [Pravachol] 20 mg PO QHS #30 tablet 04/20/18 11/16/20 Unknown Rx Amlodipine Besylate [Norvasc] 10 mg PO DAILY 12/06/18 11/16/20 Unknown History Gabapentin 300 mg PO Q8HR 12/06/18 11/16/20 Unknown History Albuterol Mdi (or & Nicu Only) 2 puff IH QID PRN #1 inhalation 08/24/20 11/16/20 Unknown Rx [ProAir HFA Inhaler] Benzonatate [Tessalon Perles] 100 mg PO Q8HR #10 capsule 08/24/20 11/16/20 Unknown Rx DAPTOmycin 800 mg IV Q24H vial 09/28/20 11/16/20 Unknown Rx Insulin NPH/Regular [NovoLIN 70/30] 35 unit SUB-Q BIDDIAB #12 ml 09/28/20 11/16/20 Unknown Rx Metoprolol [Lopressor TAB] 25 mg PO BID #60 tablet 09/28/20 11/16/20 Unknown Rx hydrALAZINE [Apresoline TAB] 100 mg PO Q8HR #90 tab 09/28/20 11/16/20 Unknown Rx HYDROcodone/APAP 5-325 [[place] 1 each PO Q6HR PRN #14 tablet 10/13/20 11/16/20 Unknown Rx 5-325 mg TAB] Active Meds: Active Medications Acetaminophen (Acetaminophen 325 Mg Tab) 650 mg PO Q6H PRN PRN Reason: Pain, Mild (1-3) Last Admin: 11/17/20 06:19 Dose: 650 mg Documented by: Hydrocodone Bitart/Acetaminophen (Hydrocodone/Acetaminophen 5-325 Mg Tab) 1 each PO Q6HR PRN PRN Reason: PAIN Last Admin: 11/17/20 01:30 Dose: 1 each Documented by: Albuterol (Albuterol 2.5 Mg/3 Ml Nebu) 2.5 mg IH Q4HRT PRN PRN Reason: Shortness Of Breath Benzonatate (Benzonatate 100 Mg Cap) 100 mg PO Q8HR [facility] Last Admin: 11/17/20 14:21 Dose: Not Given Documented by: Dextrose (Dextrose 50% In Water (25gm) 50 Ml Syringe) 50 ml IV Q30MIN PRN; Protocol PRN Reason: Hypoglycemia Famotidine (Famotidine 20 Mg Tab) 20 mg PO BID [facility] Last Admin: 11/17/20 12:19 Dose: Not Given Documented by: Gabapentin (Gabapentin 300 Mg Cap) 300 mg PO Q8HR [facility] Last Admin: 11/17/20 13:07 Dose: Not Given Documented by: Heparin Sodium (Porcine) (Heparin 5,000 Unit/1 Ml Vial) 5,000 unit SUB-Q Q8HR [facility] Last Admin: 11/17/20 16:56 Dose: Not Given Documented by: Hydralazine HCl (Hydralazine 100 Mg Tab) 100 mg PO Q8HR [facility] Last Admin: 11/17/20 13:07 Dose: Not Given Documented by: Hydralazine HCl (Hydralazine 20 Mg/1 Ml Inj) 10 mg IV Q6HR PRN PRN Reason: Hypertension Last Admin: 11/17/20 12:14 Dose: 10 mg Documented by: Hydromorphone HCl (Hydromorphone 1 Mg/1 Ml Inj) 1 mg IV Q3H PRN PRN Reason: Pain , Severe (7-10) Last Admin: 11/17/20 17:45 Dose: 1 mg Documented by: Sodium Chloride (Nacl 0.9% 250ml) 250 mls @ 250 mls/hr IV Q12HR [facility] Last Admin: 11/17/20 12:15 Dose: 250 mls/hr Documented by: Ampicillin Sodium/Sulbactam Sodium (Unasyn/Ns 1.5 Gm/50 Ml) 1.5 gm in 50 mls @ 100 mls/hr IV Q12H [facility] Last Admin: 11/17/20 17:52 Dose: 100 mls/hr Documented by: Insulin Human Isoph/Insulin Regular (Insulin Nph/Regular 70/30 Inj) 35 unit SUB-Q BIDDIAB [facility] Last Admin: 11/17/20 17:44 Dose: 35 unit Documented by: Insulin Human Lispro (Insulin Lispro 100 Unit/Ml) 0 unit SUB-Q Q4HR [facility]; Protocol Last Admin: 11/17/20 17:44 Dose: 4 unit Documented by: Metoprolol Tartrate (Metoprolol Tartrate 25 Mg Tab) 25 mg PO BID [facility] Last Admin: 11/17/20 12:14 Dose: 25 mg Documented by: Ondansetron HCl (Ondansetron 4 Mg/2 Ml Inj) 4 mg IV Q8H PRN PRN Reason: Nausea And Vomiting Pravastatin Sodium (Pravastatin 20 Mg Tab) 20 mg PO QHS [facility] Last Admin: 11/16/20 22:27 Dose: 20 mg Documented by: Sodium Chloride (Sodium Chloride 0.9% 10 Ml Flush Syringe) 10 ml IV BID [facility] Last Admin: 11/17/20 18:24 Dose: Not Given Documented by: Sodium Chloride (Sodium Chloride 0.9% 10 Ml Flush Syringe) 10 ml IV PRN PRN PRN Reason: LINE FLUSH Review of Systems All systems: negative Exam - Constitutional Vitals: Temp Pulse Resp BP Pulse Ox 98.9 F 105 H 20 141/84 90 11/17/20 16:01 11/17/20 16:01 11/17/20 16:01 11/17/20 16:01 11/17/20 16:01 General appearance: Present: no acute distress, other (Somnolent) - Respiratory Respiratory effort: normal - Cardiovascular Heart rate: 125 Rhythm: other (Tachycardic) - Extremities Extremities: pulses intact (Palpable right posterior tibial pulse, palpable left dorsalis pedis and posterior tibial pulses), abnormal (Right foot wound with fibrinous exudate in the base and nonpurulent but foul-smelling drainage. ) Extremity abnormal: ulceration (Superficial ulceration with maceration of the surrounding skin on the plantar surface at the base of the second toe) Results - Labs CBC & Chem 7: 11/17/20 05:10 11/17/20 05:10 Labs: Abnormal lab results 11/16/20 11/17/20 11/17/20 Range/Units 18:24 00:02 05:10 WBC 19.5 H (4.5-11.0) K/mm3 RBC 3.53 L (3.65-5.03) M/mm3 Hgb 8.6 L (11.8-15.2) gm/dl Hct 26.8 L (35.5-45.6) % MCV 76 L (84-94) fl MCH 25 L (28-32) pg RDW 18.0 H (13.2-15.2) % Lymph % (Auto) 5.9 L (13.4-35.0) % [place] % (Auto) 10.7 H (0.0-7.3) % Lymph # (Auto) 1.1 L (1.2-5.4) K/mm3 [place] # (Auto) 2.1 H (0.0-0.8) K/mm3 Seg Neutrophils % 82.8 H (40.0-70.0) % Seg Neutrophils # 16.1 H (1.8-7.7) K/mm3 Sodium (137-145) mmol/L Carbon Dioxide (22-30) mmol/L BUN (9-20) mg/dL Creatinine (0.8-1.3) mg/dL Glucose (75-100) mg/dL POC Glucose 152 H 228 H (70-105) mg/dL 02/06/21 02/06/21 02/06/21 Range/Units 05:10 06:09 07:48 WBC (4.5-11.0) K/mm3 RBC (3.65-5.03) M/mm3 Hgb (11.8-15.2) gm/dl Hct (35.5-45.6) % MCV (84-94) fl MCH (28-32) pg RDW (13.2-15.2) % Lymph % (Auto) (13.4-35.0) % [place] % (Auto) (0.0-7.3) % Lymph # (Auto) (1.2-5.4) K/mm3 [place] # (Auto) (0.0-0.8) K/mm3 Seg Neutrophils % (40.0-70.0) % Seg Neutrophils # (1.8-7.7) K/mm3 Sodium 135 L D (137-145) mmol/L Carbon Dioxide 15 L (22-30) mmol/L BUN 35 H (9-20) mg/dL Creatinine 5.0 H (0.8-1.3) mg/dL Glucose 202 H (75-100) mg/dL POC Glucose 172 H 188 H (70-105) mg/dL - Imaging and Cardiology CT scan - pelvis: image reviewed (Right lower extremity CT was reviewed) Venous US: image reviewed Assessment and Plan The patient is a 45-year-old male with a history of poorly controlled diabetes, a nonhealing open transmetatarsal amputation of the 3rd-5th toes with likely osteomyelitis involving the second toe, and acute on chronic renal failure. He has a palpable posterior tibial pulse and likely has adequate blood flow to heal his wound. It is likely that his poor wound healing is secondary to his poorly controlled diabetes as well as his poor wound care. He may benefit from a diagnostic angiogram and is possible to perform the majority of the study with CO2 however it would likely require some contrast to adequately evaluate his tibial vessels as this would be the most likely cause of poor wound healing if he does have a vascular component. This could possibly lead to the need for dialysis and the patient is again adamant that he is not willing to be placed on dialysis. I discussed with the patient possibly the need for having this discussion with himself as well as family members to ensure that he as well as his family understand the impact of declining these procedures to assist with his medical care. He was not interested in having that discussion. I suspect given the patient's noncompliance and unwillingness to undergo these procedures he would likely end up with a below-knee amputation however this will likely be performed emergently secondary to sepsis.
[2020-11-17] MEDS: PRAVASTATIN 20 MG TAB PO SCH (22:00)
[2020-11-18] MEDS: INSULIN LISPRO 100 UNIT/ML SUB-Q SCH ×6 (05:47→22:11)
[2020-11-18] MEDS: AMPICILLIN/SULBACTA 1.5GM/50ML 1.5 GM/50 ML BAG IV SCH ×2 (06:00→17:06)
[2020-11-18] MEDS: BENZONATATE 100 MG CAP PO SCH ×3 (06:00→21:56)
[2020-11-18] MEDS: INSULIN NPH/REGULAR 70/30 INJ SUB-Q SCH ×2 (08:34→16:22)
[2020-11-18] MEDS: hydrALAZINE 100 MG TAB PO SCH ×2 (09:17→13:23)
[2020-11-18] MEDS: METOPROLOL TARTRATE 25 MG TAB PO SCH ×2 (09:17→21:58)
[2020-11-18] MEDS: GABAPENTIN 300 MG CAP PO SCH ×3 (09:17→21:56)
[2020-11-18] MEDS: FAMOTIDINE 20 MG TAB PO SCH ×2 (09:18→21:56)
[2020-11-18] MEDS: HYDROmorphone 1 MG/1 ML INJ IV PRN ×4 (09:19→20:35)
[2020-11-18] MEDS: HEPARIN 5,000 UNIT/1 ML VIAL SUB-Q SCH ×3 (09:19→21:56)
[2020-11-18] MEDS: SODIUM CHLORIDE 0.9% 250ML 250 ML IV SCH (10:42)
--- NOTE | 2020-11-18 11:36 | Progress Note ---
Assessment and Plan - Patient Problems (1) Osteomyelitis of foot, right, acute Current Visit: Yes Status: Acute Plan to address problem: 1) Dr. Pineda note was read. After reviewing his options today, the pt is still refusing angiographic evaluation. He now consents to TMA of the right 2nd toe. I will check with the OR regarding availability. Subjective Date of service: 11/18/20 Patient Reports: Positive: no new complaints Objective Vital Signs - 12hr 11/17/20 11/18/20 11/18/20 23:50 00:20 04:02 Temperature 98.8 F Pulse Rate 102 H Respiratory 20 20 20 Rate Respiratory Rate [Right Foot] Blood Pressure 137/65 O2 Sat by Pulse 100 Oximetry 11/18/20 11/18/20 11/18/20 07:39 09:17 09:19 Temperature 98.5 F Pulse Rate 113 H 113 H Respiratory 18 20 Rate Respiratory Rate [Right Foot] Blood Pressure 147/81 147/81 O2 Sat by Pulse 91 Oximetry 11/18/20 10:38 Temperature Pulse Rate Respiratory Rate Respiratory 18 Rate [Right Foot] Blood Pressure O2 Sat by Pulse Oximetry - Integumentary other (No change in right foot exam.) - Labs 11/17/20 05:10 11/17/20 05:10 - Imaging Additional Studies: CT of RLE reviewed.
[2020-11-18] MEDS ORDERED: VANCOMYCIN 1,500 MG in SODIUM CHLORIDE 0.9% 500 ML 500 ML IV ONE (12:00)
[2020-11-18] MEDS: ACETAMINOPHEN 325 MG TAB PO PRN (20:35)
[2020-11-18] MEDS: hydrALAZINE 20 MG/1 ML INJ IV PRN (20:36)
[2020-11-19] MEDS: PRAVASTATIN 20 MG TAB PO SCH ×2 (00:02→21:56)
[2020-11-19] MEDS: hydrALAZINE 100 MG TAB PO SCH ×4 (01:27→21:56)
[2020-11-19] MEDS: HYDROmorphone 1 MG/1 ML INJ IV PRN ×3 (01:27→09:16)
[2020-11-19] MEDS: INSULIN LISPRO 100 UNIT/ML SUB-Q SCH ×6 (01:34→21:57)
[2020-11-19] MEDS: hydrALAZINE 20 MG/1 ML INJ IV PRN ×2 (05:40→15:06)
[2020-11-19] MEDS: AMPICILLIN/SULBACTA 1.5GM/50ML 1.5 GM/50 ML BAG IV SCH (05:41)
[2020-11-19] MEDS: SODIUM CHLORIDE 0.9% 250ML 250 ML IV SCH ×2 (05:41→11:50)
[2020-11-19] MEDS: HEPARIN 5,000 UNIT/1 ML VIAL SUB-Q SCH ×3 (05:53→21:57)
[2020-11-19] MEDS: BENZONATATE 100 MG CAP PO SCH ×3 (05:53→21:57)
[2020-11-19 06:18] LABS: Hematocrit 26.3 % (35.5-45.6); Hemoglobin 8.4 gm/dl (11.8-15.2); Mean Corpuscular HGB Conc 32 % (32-34); Mean Corpuscular Volume 77 fl (84-94); Platelet Count 394 K/mm3 (140-440); Red Blood Count 3.42 M/mm3 (3.65-5.03); Red Cell Distribution Width 18.7 % (13.2-15.2)
[2020-11-19] MEDS: GABAPENTIN 300 MG CAP PO SCH ×3 (06:30→21:56)
[2020-11-19 06:37] LABS: Albumin 2.7 g/dL (3.9-5)
[2020-11-19 07:09] LABS: Hypochromasia 1+; Total Cells Counted 100
[2020-11-19 07:10] LABS: Platelet Estimate Consistent w Auto; Target Cells Few
[2020-11-19] MEDS: METOPROLOL TARTRATE 25 MG TAB PO SCH ×2 (09:13→21:56)
[2020-11-19] MEDS: ACETAMINOPHEN 325 MG TAB PO PRN (09:13)
[2020-11-19] MEDS ORDERED: SODIUM CHLORIDE 0.9% 1000 ML 1,000 ML IV SCH (11:30)
[2020-11-19] MEDS ORDERED: LIDOCAINE MPF (2%) 20 MG/1 ML VIAL 5 ML ONE (11:33)
[2020-11-19] MEDS ORDERED: propofoL 200 MG/20 ML VIAL IV ONE (11:33)
[2020-11-19] MEDS ORDERED: HYDROmorphone 1 MG/1 ML INJ ONE (11:33)
[2020-11-19] MEDS ORDERED: HYDROmorphone 1 MG/1 ML INJ IV PRN ×2 (11:34)
[2020-11-19] MEDS ORDERED: ONDANSETRON 4 MG/2 ML INJ IV PRN (11:34)
--- NOTE | 2020-11-19 11:35 | Anesthesia Day of Surgery ---
Anesthesia Day of Surgery - Day of Surgery Patient Examined: Yes Patient H&P Reviewed: Yes Patient is NPO: Yes
--- NOTE | 2020-11-19 11:36 | Anesthesia Consultation ---
Anesthesia Consult and Med Hx Date of service: 11/19/20 - Airway Anesthetic Teeth Evaluation: Chipped ROM Head & Neck: Adequate Mental/Hyoid Distance: Adequate Mallampati Class: Class III Intubation Access Assessment: Probably Good - Pre-Operative Health Status ASA Pre-Surgery Classification: ASA4 Proposed Anesthetic Plan: General - Pulmonary Hx Smoking: No Hx Asthma: No Hx Respiratory Symptoms: No COPD: No Hx Pneumonia: No Hx Sleep Apnea: No - Cardiovascular System Hx Hypertension: Yes Hx Heart Attack/AMI: No Hx Percutaneous Transluminal Coronary Angioplasty (PTCA): No Hx Cardia Arrhythmia: No Hx Pacemaker: No Hx Internal Defibrillator: No - Central Nervous System Hx Neuromuscular Disorder: No Hx Seizures: No CVA: No Hx Back Pain: Yes Hx Psychiatric Problems: No - Gastrointestinal Hx Gastroesophageal Reflux Disease: No - Endocrine Hx Renal Disease: Yes (CKD Stage 3) Hx End Stage Renal Disease: No Hx Liver Disease: No Hx Insulin Dependent Diabetes: Yes (A1c 11) - Hematic Hx Anemia: Yes - Other Systems Hx Alcohol Use: No Hx Substance Use: No Hx Obesity: Yes (BMI 36) - Additional Comments Anesthesia Medical History Comments: Has been here twice last year
[2020-11-19] MEDS: INSULIN NPH/REGULAR 70/30 INJ SUB-Q SCH ×2 (11:50→17:18)
[2020-11-19] MEDS: FAMOTIDINE 20 MG TAB PO SCH (11:50)
[2020-11-19] MEDS ORDERED: SODIUM CHLORIDE 0.9% IRR 1,500 ML BOTTLE IR ONE (12:24)
[2020-11-19] MEDS ORDERED: PHENYLEPHRINE/NS 1,000 MCG/10 ML SYRINGE (OR USE) IV ONE (12:39)
[2020-11-19] MEDS ORDERED: BUPIVACAINE/PF (0.5%) 5 MG/1 ML 30 ML VIAL INFILTRATI ONE ×2 (13:06→13:08)
--- NOTE | 2020-11-19 13:22 | Procedure Note ---
Date of procedure: 11/19/20 Pre-op diagnosis: Osteomyelitis of right 2nd toe and residual 3rd metatarsal shaft Post-op diagnosis: same Procedure: TMA of right 2nd toe and amputation of distal half of the right 3rd metatarsal shaft Description of procedure: Pt was placed supine on the OR table. General anesthesia was administered. Right foot was prepped and draped. An elliptical incision was made about the 2nd toe and the toe amputated at the MTP joint. Soft tissue was elevated off of the distal 2nd and 3rd metaphyseal shafts and the shafts amputated proximal to any gross evidence of osteomyelitis. Wound was irrigated with warm saline. Wound was packed open with a dilute Betadine moistened Kerlix roll followed by dry 4 X 4's, a Kerlix wrap and Coban wrap. Pt tolerated the procedure well and was taken to PACU in stable condition. Anesthesia: GETA Surgeon: FLEX TAN Estimated blood loss: minimal Pathology: list (1) Right 2nd toe 2) Right 2nd metatarsal shaft 3) Right 3rd metatarsal shaft) Specimen disposition: to lab Condition: stable Disposition: PACU
--- NOTE | 2020-11-19 13:26 | Event Note ---
Date: 11/19/20 Went to go see the patient again to discuss possible angiogram, but patient was off the floor in the operating room. Dr. Pineda had an extensive discussion with the patient. The patient appears to not be accepting his current situation, disease process, renal issues, and poorly controlled diabetic state based on the note. Unfortunately, patient's denial of the active issues places him at high risk for further morbidity and mortality.
[2020-11-19] MEDS ORDERED: AMPICILLIN/SULBACTA 3GM/100ML 3 GM/100 ML BAG IV SCH (17:00)
[2020-11-19] MEDS: HYDROcodone/ACETAMINOPHEN 5-325 MG TAB PO PRN (17:16)
[2020-11-20] MEDS: hydrALAZINE 20 MG/1 ML INJ IV PRN ×2 (01:16→08:57)
[2020-11-20] MEDS: HYDROmorphone 1 MG/1 ML INJ IV PRN ×5 (01:17→19:17)
[2020-11-20] MEDS: ACETAMINOPHEN 325 MG TAB PO PRN ×2 (01:25→12:14)
[2020-11-20] MEDS: INSULIN LISPRO 100 UNIT/ML SUB-Q SCH ×6 (04:44→23:23)
[2020-11-20] MEDS: hydrALAZINE 100 MG TAB PO SCH ×3 (05:22→23:23)
[2020-11-20] MEDS: BENZONATATE 100 MG CAP PO SCH ×3 (05:23→23:24)
[2020-11-20] MEDS: GABAPENTIN 300 MG CAP PO SCH ×3 (05:23→23:23)
[2020-11-20] MEDS: HEPARIN 5,000 UNIT/1 ML VIAL SUB-Q SCH ×3 (05:24→23:23)
[2020-11-20] MEDS: SODIUM CHLORIDE 0.9% 250ML 250 ML IV SCH ×3 (06:10→23:22)
--- NOTE | 2020-11-20 06:28 | Progress Note ---
Assessment and Plan Assessment and Plan - Patient Problems (1) Sepsis Current Visit: Yes Status: Acute Plan to address problem: Sepsis protocol: CBC, CMP, IV antibiotic therapy, serial lactic acid, IV fluid resuscitation therapy, blood culture, maintain mean arterial pressure greater than or equal to 65 Continue IV vancomycin (2) Acute kidney injury superimposed on CKD Current Visit: Yes Status: Acute Plan to address problem: Nephrology team consulted in ED, strict I's/O, monitor urine output every shift, avoid nephrotoxic agents. (3) Osteomyelitis of foot, right, acute Current Visit: Yes Status: Acute Plan to address problem: Patient had partial TMA of the right foot involving the third fourth and fifth toes (4) Peripheral vascular disease Current Visit: Yes Status: Acute Plan to address problem: Supportive care, continue medical management. We will try to convince the patient to get the vascular surgery work-up (5) MRSA cellulitis Current Visit: No Status: Acute Plan to address problem: CBC, CMP, blood culture, wound culture, IV antibiotic therapy, supportive care. Continue IV vancomycin (6) Metabolic acidosis Current Visit: No Status: Acute Plan to address problem: IV fluid resuscitation therapy, BMP, repeat BMP in a.m., treat sepsis. (7) CHF (congestive heart failure) Current Visit: No Status: Chronic Qualifiers: Heart failure type: diastolic Plan to address problem: Strict I's/O, monitor urine output every shift, daily weight, afterload reduction, blood pressure control, supplemental oxygen, (8) Diabetes mellitus with hyperglycemia Current Visit: No Status: Chronic Qualifiers: Diabetes mellitus type: type 2 Plan to address problem: Consistent carbohydrate diet, sliding scale insulin, Accu-Chek, hypoglycemia protocol (9) HLD (hyperlipidemia) Current Visit: No Status: Chronic Qualifiers: Hyperlipidemia type: mixed hyperlipidemia Plan to address problem: Lipid panel, statin therapy, supportive care. Low-cholesterol diet, 10)hypertension continue antihypertensives Adjust blood pressure medication (11) DVT prophylaxis Current Visit: Yes Status: Acute Plan to address problem: SCDs bilateral lower extremities while in bed, initiate anticoagulation after surgical intervention. Discharge planning issues Patient needs wound care for the right foot Patient also needs vascular surgery work-up for the right lower extremity Patient keeps refusing If patient gives refusing patient may be discharged home on antibiotics as per ID Subjective Date of service: 11/19/20 Principal diagnosis: Right foot cellulitis Interval history: 45 YO Male with DM,HTN, HLD, Obesity Hypoventilation Syndrome, CKD, CHF, PAD, Osteomyelitis, Nicotine Dependence presents to ED for evaluation. Pt reports "my foot hurts". Patient states that he has experienced pain in his right lower extremity over the past 1 week with persistently worsening symptoms over the past 2 days. Patient states that his pain is 5/10, constant, worsened with weightbearing, relieved with nonweightbearing. EMS was notified and upon arrival the patient was found to be in distress and subsequently transported to [facility] for further care and evaluation of the aforementioned symptoms. The patient was seen and evaluated in the emergency department. All lab and imaging studies reviewed. The patient was found to have right lower extremity osteomyelitis, right lower extremity cellulitis, sepsis, acute kidney injury, metabolic acidosis, uncontrolled diabetes, as well as accelerated hypertension. Pt admitted to surgical floor and initiated on sepsis protocol. Surgical team consulted in ED, Nephrology team consulted in ED. Pt denies fever, chills, CP, Palpitations, NVD, Trauma, BRBPR, recent ill contacts, or known exposure to COVID-19. Prior admission on 09/22/2020 reviewed. All medication listed at time of admission has been reconciled. 11/17/2020 Patient does not want hemodialysis Patient does not want any intervention on his lower extremities 11/18/2020 Patient refuses hemodialysis Patient refuses any surgical intervention on the right lower extremity Right foot wound draining 11/19/20 Agreed for surgery electronically TMA of right 2nd toe and amputation of distal half of the right 3rd metatarsal shaft by Dr perez today Patient also needs further vascular work-up We will try to convince him again for angiography Objective - Constitutional Vitals: Vital Signs - 12hr 11/19/20 11/19/20 11/19/20 19:37 19:38 20:19 Temperature 97.6 F Pulse Rate 111 H 111 H Respiratory 20 17 Rate Respiratory Rate [Right Foot] Blood Pressure 183/98 O2 Sat by Pulse 92 97 Oximetry 11/19/20 11/19/20 11/19/20 20:49 21:39 21:56 Temperature Pulse Rate 107 H Respiratory 17 Rate Respiratory Rate [Right Foot] Blood Pressure 172/109 O2 Sat by Pulse 96 Oximetry 11/19/20 11/20/20 11/20/20 22:00 00:20 01:16 Temperature 100.0 F H Pulse Rate 107 H 104 H Respiratory 17 20 Rate Respiratory 17 Rate [Right Foot] Blood Pressure 185/112 181/108 O2 Sat by Pulse 94 Oximetry 11/20/20 11/20/20 11/20/20 01:17 01:25 01:47 Temperature Pulse Rate Respiratory 17 17 17 Rate Respiratory Rate [Right Foot] Blood Pressure O2 Sat by Pulse Oximetry 11/20/20 11/20/20 11/20/20 02:25 04:53 06:11 Temperature 99.4 F Pulse Rate 103 H Respiratory 17 20 17 Rate Respiratory Rate [Right Foot] Blood Pressure 163/97 O2 Sat by Pulse 95 Oximetry General appearance: Present: no acute distress, well-nourished - EENT Eyes: PERRL, EOM intact ENT: hearing intact, clear oral mucosa Ears: bilateral: normal - Neck Neck: supple, normal ROM - Respiratory Respiratory effort: normal Respiratory: bilateral: CTA - Breasts Breasts: normal - Cardiovascular Heart rate: 78 Rhythm: regular Heart Sounds: Present: S1 & S2. Absent: gallop, rub Extremities: pulses intact, No edema, normal color, Full ROM Extremity abnormal: other (Right foot wound dressing-s/p TMA of the third and fourth toes) - Gastrointestinal General gastrointestinal: Present: soft, non-tender, non-distended, normal bowel sounds - Genitourinary Male genitourinary: normal - Integumentary Integumentary: clear, warm, dry - Musculoskeletal Musculoskeletal: 1, strength equal bilaterally - Neurologic Neurologic: moves all extremities - Psychiatric Psychiatric: memory intact, appropriate mood/affect, intact judgment & insight - Labs CBC & Chem 7: 11/19/20 05:55 11/19/20 05:55 Labs: Abnormal lab results 11/19/20 11/19/20 11/19/20 Range/Units 05:55 05:55 07:28 Seg Neuts % (Manual) 82.0 H (40.0-70.0) % Lymphocytes % (Manual) 11.0 L (13.4-35.0) % Seg Neutrophils # Man 17.4 H (1.8-7.7) K/mm3 Monocytes # (Manual) 1.5 H (0.0-0.8) K/mm3 Sodium 134 L (137-145) mmol/L Carbon Dioxide 15 L (22-30) mmol/L BUN 34 H (9-20) mg/dL Creatinine 4.3 H (0.8-1.3) mg/dL Glucose 231 H (75-100) mg/dL POC Glucose 191 H (70-105) mg/dL Alkaline Phosphatase 245 H (35-129) units/L Albumin 2.7 L (3.9-5) g/dL 11/19/20 11/19/20 11/19/20 Range/Units 11:22 14:09 16:32 Seg Neuts % (Manual) (40.0-70.0) % Lymphocytes % (Manual) (13.4-35.0) % Seg Neutrophils # Man (1.8-7.7) K/mm3 Monocytes # (Manual) (0.0-0.8) K/mm3 Sodium (137-145) mmol/L Carbon Dioxide (22-30) mmol/L BUN (9-20) mg/dL Creatinine (0.8-1.3) mg/dL Glucose (75-100) mg/dL POC Glucose 195 H 213 H 220 H (70-105) mg/dL Alkaline Phosphatase (35-129) units/L Albumin (3.9-5) g/dL 11/19/20 11/20/20 Range/Units 21:54 02:03 Seg Neuts % (Manual) (40.0-70.0) % Lymphocytes % (Manual) (13.4-35.0) % Seg Neutrophils # Man (1.8-7.7) K/mm3 Monocytes # (Manual) (0.0-0.8) K/mm3 Sodium (137-145) mmol/L Carbon Dioxide (22-30) mmol/L BUN (9-20) mg/dL Creatinine (0.8-1.3) mg/dL Glucose (75-100) mg/dL POC Glucose 144 H 159 H (70-105) mg/dL Alkaline Phosphatase (35-129) units/L Albumin (3.9-5) g/dL
--- NOTE | 2020-11-20 07:54 | Progress Note ---
Assessment and Plan Assessment and plan: --Osteomyelitis of foot, right, acute Current Visit: Yes Status: Acute Plan to address problem: Patient had partial TMA of the right foot involving the third fourth and fifth toes --Febrile illness, T-max 102.9 F Current Visit: Yes Status: Acute Plan to address problem: secondary to sepsis due to osteomyelitis Patient also has history of MRSA cellulitis Treat the underlying cause, follow blood cultures ID consulted --Sepsis/due to osteomyelitis foot/toes Current Visit: Yes Status: Acute Plan to address problem: Status post TMA second and third right metatarsal on IV antibiotics Consult ID for choice and duration of antibiotics --Acute on CKD progressing to stage IV Current Visit: Yes Status: Acute Plan to address problem: Due to vasomotor nephropathy avoid nephrotoxins, monitor renal function Nephrology following --Peripheral vascular disease Current Visit: Yes Status: Acute Plan to address problem: Vascular following. Patient refusing vascular work-up and recommendations --h/o MRSA cellulitis Current Visit: No Status: Acute Plan to address problem: CBC, CMP, blood culture, wound culture, IV antibiotic therapy, supportive care. Continue IV vancomycin --Metabolic acidosis Current Visit: No Status: Acute Plan to address problem: Secondary to acute on chronic kidney disease Nephrology following --Diabetes mellitus with hyperglycemia Current Visit: No Status: Chronic Plan to address problem: Accu-Chek sliding scale coverage ADA diet Insulin as needed -- HLD (hyperlipidemia) Current Visit: No Status: Chronic Plan to address problem: Lipid panel, statin therapy, supportive care. Low-cholesterol diet, --hypertension Current Visit: No Status: Chronic Plan to address problem: continue antihypertensives Adjust blood pressure medication -- DVT prophylaxis Current Visit: Yes Status: Acute Plan to address problem: SCDs bilateral lower extremities while in bed, initiate anticoagulation after surgical intervention. Continue wound care. PT OT when patient is able to tolerate DC planning per case management We will closely monitor the patient and adjust the management as needed Plan of care reviewed with the patient and his nurse Brief history 45 YO Male with DM,HTN, HLD, Obesity Hypoventilation Syndrome, CKD, CHF, PAD, Osteomyelitis, Nicotine Dependence presents to ED for evaluation. Pt reports "my foot hurts". Patient states that he has experienced pain in his right lower extremity over the past 1 week with persistently worsening symptoms over the past 2 days. Patient states that his pain is 5/10, constant, worsened with weightbearing, relieved with nonweightbearing. EMS was notified and upon ar rival the patient was found to be in distress and subsequently transported to [facility] for further care and evaluation of the aforementioned symptoms. The patient was seen and evaluated in the emergency department. All lab and imaging studies reviewed. The patient was found to have right lower extremity osteomyelitis, right lower extremity cellulitis, sepsis, acute kidney injury, metabolic acidosis, uncontrolled diabetes, as well as accelerated hypertension. Pt admitted to surgical floor and initiated on sepsis protocol. Surgical team consulted in ED, Nephrology team consulted in ED. Pt denies fever, chills, CP, Palpitations, NVD, Trauma, BRBPR, recent ill contacts, or known exposure to COVID-19. Prior admission on 09/22/2020 reviewed. All medication listed at time of admission has been reconciled. 11/20/2020; patient is febrile T-max 102 F, patient is on empiric antibiotics, del valle culture sent, ID consulted For choice and duration of antibiotics., Will request PT and patient is able to tolerate physical therapy per surgeon History Interval history: I have seen and examined the patient at the bedside Patient's chart and medications reviewed Patient underwent TMA of the right foot toes 3 and 4 Patient complains of severe pain Vital signs noted Hospitalist Physical - Constitutional Vitals: Temp Pulse Resp BP Pulse Ox 99.4 F 103 H 17 163/97 95 11/20/20 04:53 11/20/20 04:53 11/20/20 06:11 11/20/20 04:53 11/20/20 04:53 General appearance: Present: no acute distress, well-nourished - EENT Eyes: Present: PERRL, EOM intact - Neck Neck: Present: supple, normal ROM - Respiratory Respiratory effort: normal Respiratory: bilateral: diminished, negative: rales, rhonchi, wheezing - Cardiovascular Rhythm: regular Heart Sounds: Present: S1 & S2 - Extremities Extremities: abnormal (Surgical dressing in place on the right foot) - Abdominal General gastrointestinal: soft, non-tender, non-distended, normal bowel sounds - Integumentary Integumentary: Present: clear, warm - Psychiatric Psychiatric: appropriate mood/affect, cooperative - Neurologic Neurologic: CNII-XII intact, moves all extremities Results - Labs CBC & Chem 7: 11/19/20 05:55 11/19/20 05:55 Labs: Laboratory Last Values WBC 21.2 K/mm3 (4.5-11.0) H 11/19/20 05:55 RBC 3.42 M/mm3 (3.65-5.03) L 11/19/20 05:55 Hgb 8.4 gm/dl (11.8-15.2) L 11/19/20 05:55 Hct 26.3 % (35.5-45.6) L 11/19/20 05:55 MCV 77 fl (84-94) L 11/19/20 05:55 MCH 25 pg (28-32) L 11/19/20 05:55 MCHC 32 % (32-34) 11/19/20 05:55 RDW 18.7 % (13.2-15.2) H 11/19/20 05:55 Plt Count 394 K/mm3 (140-440) 11/19/20 05:55 Lymph % (Auto) 5.9 % (13.4-35.0) L 11/17/20 05:10 [place] % (Auto) 10.7 % (0.0-7.3) H 11/17/20 05:10 Eos % (Auto) 0.4 % (0.0-4.3) 11/17/20 05:10 Baso % (Auto) 0.2 % (0.0-1.8) 11/17/20 05:10 Lymph # (Auto) 1.1 K/mm3 (1.2-5.4) L 11/17/20 05:10 [place] # (Auto) 2.1 K/mm3 (0.0-0.8) H 11/17/20 05:10 Eos # (Auto) 0.1 K/mm3 (0.0-0.4) 11/17/20 05:10 Baso # (Auto) 0.0 K/mm3 (0.0-0.1) 11/17/20 05:10 Add Manual Diff Complete 11/19/20 05:55 Total Counted 100 11/19/20 05:55 Seg Neutrophils % 82.8 % (40.0-70.0) H 11/17/20 05:10 Seg Neuts % (Manual) 82.0 % (40.0-70.0) H 11/19/20 05:55 Lymphocytes % (Manual) 11.0 % (13.4-35.0) L 11/19/20 05:55 Monocytes % (Manual) 7.0 % (0.0-7.3) 11/19/20 05:55 Eosinophils % (Manual) 2.0 % (0.0-4.3) 11/16/20 10:26 Nucleated RBC % Not Reportable 11/19/20 05:55 Seg Neutrophils # 16.1 K/mm3 (1.8-7.7) H 11/17/20 05:10 Seg Neutrophils # Man 17.4 K/mm3 (1.8-7.7) H 11/19/20 05:55 Band Neutrophils # 0.0 K/mm3 11/19/20 05:55 Lymphocytes # (Manual) 2.3 K/mm3 (1.2-5.4) 11/19/20 05:55 Abs React Lymphs (Man) 0.0 K/mm3 11/19/20 05:55 Monocytes # (Manual) 1.5 K/mm3 (0.0-0.8) H 11/19/20 05:55 Eosinophils # (Manual) 0.0 K/mm3 (0.0-0.4) 11/19/20 05:55 Basophils # (Manual) 0.0 K/mm3 (0.0-0.1) 11/19/20 05:55 Metamyelocytes # 0.0 K/mm3 11/19/20 05:55 Myelocytes # 0.0 K/mm3 11/19/20 05:55 Promyelocytes # 0.0 K/mm3 11/19/20 05:55 Blast Cells # 0.0 K/mm3 11/19/20 05:55 WBC Morphology Not Reportable 11/19/20 05:55 Hypersegmented Neuts Not Reportable 11/19/20 05:55 Hyposegmented Neuts Not Reportable 11/19/20 05:55 Hypogranular Neuts Not Reportable 11/19/20 05:55 Smudge Cells Not Reportable 11/19/20 05:55 Toxic Granulation Not Reportable 11/19/20 05:55 Toxic Vacuolation Not Reportable 11/19/20 05:55 Dohle Bodies Not Reportable 11/19/20 05:55 Pelger-Huet Anomaly Not Reportable 11/19/20 05:55 Shayla Rods Not Reportable 11/19/20 05:55 Platelet Estimate Consistent w auto 11/19/20 05:55 Clumped Platelets Not Reportable 11/19/20 05:55 Plt Clumps, EDTA Not Reportable 11/19/20 05:55 Large Platelets Not Reportable 11/19/20 05:55 Giant Platelets Not Reportable 11/19/20 05:55 Platelet Satelliting Not Reportable 11/19/20 05:55 Plt Morphology Comment Not Reportable 11/19/20 05:55 RBC Morphology Not Reportable 11/19/20 05:55 Dimorphic RBCs Not Reportable 11/19/20 05:55 Polychromasia Not Reportable 11/19/20 05:55 Hypochromasia 1+ 11/19/20 05:55 Poikilocytosis Not Reportable 11/19/20 05:55 Anisocytosis Not Reportable 11/19/20 05:55 Microcytosis Not Reportable 11/19/20 05:55 Macrocytosis Not Reportable 11/19/20 05:55 Spherocytes Not Reportable 11/19/20 05:55 Pappenheimer Bodies Not Reportable 11/19/20 05:55 Sickle Cells Not Reportable 11/19/20 05:55 Target Cells Few 11/19/20 05:55 Tear Drop Cells Not Reportable 11/19/20 05:55 Ovalocytes Not Reportable 11/19/20 05:55 Helmet Cells Not Reportable 11/19/20 05:55 [place] Bodies Not Reportable 11/19/20 05:55 [place] Rings Not Reportable 11/19/20 05:55 Ricky Cells Not Reportable 11/19/20 05:55 Bite Cells Not Reportable 11/19/20 05:55 Crenated Cell Not Reportable 11/19/20 05:55 Elliptocytes Not Reportable 11/19/20 05:55 Acanthocytes (Spur) Not Reportable 11/19/20 05:55 Rouleaux Not Reportable 11/19/20 05:55 Hemoglobin C Crystals Not Reportable 11/19/20 05:55 Schistocytes Not Reportable 11/19/20 05:55 Malaria parasites Not Reportable 11/19/20 05:55 Cristhian Bodies Not Reportable 11/19/20 05:55 Hem Pathologist Commnt No 11/19/20 05:55 PT 15.1 Sec. (12.2-14.9) H 11/16/20 10:15 INR 1.19 (0.87-1.13) H 11/16/20 10:15 APTT 37.0 Sec. (24.2-36.6) H 11/16/20 10:15 VBG pH 7.332 (7.320-7.420) 11/16/20 10:15 Sodium 134 mmol/L (137-145) L 11/19/20 05:55 Potassium 4.6 mmol/L (3.6-5.0) 11/19/20 05:55 Chloride 105.2 mmol/L (98-107) 11/19/20 05:55 Carbon Dioxide 15 mmol/L (22-30) L 11/19/20 05:55 Anion Gap 18 mmol/L 11/19/20 05:55 BUN 34 mg/dL (9-20) H 11/19/20 05:55 Creatinine 4.3 mg/dL (0.8-1.3) H 11/19/20 05:55 Estimated GFR 18 ml/min 11/19/20 05:55 BUN/Creatinine Ratio 8 % 11/19/20 05:55 Glucose 231 mg/dL (75-100) H 11/19/20 05:55 POC Glucose 155 mg/dL (70-105) H 11/20/20 06:20 Lactic Acid 1.00 mmol/L (0.7-2.0) 11/17/20 05:10 Calcium 9.0 mg/dL (8.4-10.2) 11/19/20 05:55 Magnesium 2.00 mg/dL (1.7-2.3) 11/16/20 10:15 Total Bilirubin 0.80 mg/dL (0.1-1.2) 11/19/20 05:55 Direct Bilirubin 0.5 mg/dL (0-0.2) H 11/16/20 10:15 Indirect Bilirubin 0.2 mg/dL 11/16/20 10:15 AST 19 units/L (5-40) 11/19/20 05:55 ALT 16 units/L (7-56) 11/19/20 05:55 Alkaline Phosphatase 245 units/L (35-129) H 11/19/20 05:55 Total Creatine Kinase 138 units/L (55-170) 11/16/20 10:15 Total Protein 8.0 g/dL (6.3-8.2) 11/19/20 05:55 Albumin 2.7 g/dL (3.9-5) L 11/19/20 05:55 Albumin/Globulin Ratio 0.5 % 11/19/20 05:55 Vancomycin Trough 9.8 ug/mL (5.0-20.0) 11/18/20 10:10 Microbiology: Microbiology 11/16/20 10:15 Peripheral/Venous Blood Culture - Final Beta Hemolytic Strep Group B 11/16/20 10:15 Peripheral/Venous Blood Culture - Preliminary Beta Hemolytic Strep Group B Elder/IV: Voiding Method Urinal Active Medications - Current Medications Current Medications: Generic Name Dose Route Start Last Admin Trade Name Freq PRN Reason Stop Dose Admin Acetaminophen 650 mg 11/16/20 12:30 11/20/20 01:25 Acetaminophen 325 Mg Tab PO 650 mg Q6H PRN Administration Pain, Mild (1-3) Hydrocodone Bitart/Acetaminophen 1 each 11/16/20 12:23 11/19/20 17:16 Hydrocodone/Acetaminophen 5-325 Mg Tab PO 1 each Q6HR PRN Administration PAIN Albuterol 2.5 mg 11/16/20 12:30 Albuterol 2.5 Mg/3 Ml Nebu IH Q4HRT PRN Shortness Of Breath Benzonatate 100 mg 11/16/20 14:00 11/20/20 05:23 Benzonatate 100 Mg Cap PO Not Given Q8HR BARRY Dextrose 50 ml 11/16/20 12:30 Dextrose 50% In Water (25gm) 50 Ml Syringe IV Q30MIN PRN Hypoglycemia Protocol Famotidine 20 mg 11/19/20 10:00 11/19/20 11:50 Famotidine 20 Mg Tab PO Not Given DAILY BARRY Gabapentin 300 mg 11/16/20 14:00 11/20/20 05:23 Gabapentin 300 Mg Cap PO 300 mg Q8HR BARRY Administration Heparin Sodium (Porcine) 5,000 unit 11/16/20 14:00 11/20/20 05:24 Heparin 5,000 Unit/1 Ml Vial SUB-Q 5,000 unit Q8HR BARRY Administration Hydralazine HCl 100 mg 11/16/20 14:00 11/20/20 05:22 Hydralazine 100 Mg Tab PO 100 mg Q8HR BARRY Administration Hydralazine HCl 10 mg 11/16/20 12:30 11/20/20 01:16 Hydralazine 20 Mg/1 Ml Inj IV 10 mg Q6HR PRN Administration Hypertension Hydromorphone HCl 1 mg 11/17/20 09:00 11/20/20 06:11 Hydromorphone 1 Mg/1 Ml Inj IV 1 mg Q3H PRN Administration Pain , Severe (7-10) Hydromorphone HCl 0.25 mg 11/19/20 11:34 Hydromorphone 1 Mg/1 Ml Inj IV Q10MIN PRN Pain, Moderate (4-6) Hydromorphone HCl 0.5 mg 11/19/20 11:34 11/19/20 20:19 Hydromorphone 1 Mg/1 Ml Inj IV 0.5 mg Q10MIN PRN Administration Pain , Severe (7-10) Sodium Chloride 250 mls @ 250 mls/hr 11/17/20 10:00 11/20/20 06:10 Nacl 0.9% 250ml IV Not Given Q12HR BARRY Ampicillin Sodium/Sulbactam Sodium 3 gm in 100 mls @ 200 mls/hr 11/19/20 17:00 11/20/20 00:00 Unasyn/Ns 3 Gm/100 Ml IV 200 mls/hr Q24H BARRY Administration Protocol Sodium Chloride 1,000 mls @ 42 mls/hr 11/19/20 11:30 11/19/20 11:29 Nacl 0.9% 1000 Ml IV 42 mls/hr DIRECT BARRY Administration Insulin Human Isoph/Insulin Regular 37 unit 11/18/20 17:00 11/19/20 17:18 Insulin Nph/Regular 70/30 Inj SUB-Q 37 unit BIDDIAB BARRY Administration Insulin Human Lispro 0 unit 11/17/20 18:00 11/20/20 06:25 Insulin Lispro 100 Unit/Ml SUB-Q 3 unit Q4HR BARRY Administration Protocol Metoprolol Tartrate 25 mg 11/16/20 22:00 11/19/20 21:56 Metoprolol Tartrate 25 Mg Tab PO 25 mg BID BARRY Administration Ondansetron HCl 4 mg 11/16/20 12:30 Ondansetron 4 Mg/2 Ml Inj IV Q8H PRN Nausea And Vomiting Ondansetron HCl 4 mg 11/19/20 11:34 Ondansetron 4 Mg/2 Ml Inj IV ONCE PRN Nausea And Vomiting Pravastatin Sodium 20 mg 11/16/20 22:00 11/19/20 21:56 Pravastatin 20 Mg Tab PO 20 mg QHS BARRY Administration Sodium Chloride 10 ml 11/16/20 22:00 11/19/20 21:58 Sodium Chloride 0.9% 10 Ml Flush Syringe IV 10 ml BID BARRY Administration Sodium Chloride 10 ml 11/16/20 12:07 Sodium Chloride 0.9% 10 Ml Flush Syringe IV PRN PRN LINE FLUSH
[2020-11-20] MEDS: INSULIN NPH/REGULAR 70/30 INJ SUB-Q SCH ×2 (08:54→17:26)
[2020-11-20] MEDS: METOPROLOL TARTRATE 25 MG TAB PO SCH ×2 (08:59→23:23)
[2020-11-20] MEDS: FAMOTIDINE 20 MG TAB PO SCH (09:00)
--- NOTE | 2020-11-20 14:16 | Consultation ---
History of Present Illness - Reason for Consult Consult date: 11/20/20 Persistent fever Requesting physician: HOMERO GOLDSTEIN - History of Present Illness The patient is a 45 year old male with history of uncontrolled diabetes mellitus, hyperlipidemia, hypertension, chronic kidney disease, obesity, peripheral vascular disease, previous complicated cutaneous MRSA abscess in the back in April 2020 and MRSA bacteremia in April 2019 secondary to MRSA cutaneous abscess, recent admission for right diabetic foot ulcer with osteomyelitis and abscess foot abscess secondary to MRSA, discharged on 09/28/2020 on IV daptomycin for 6 weeks, then readmitted again in 09/2020 secondary to worsening right foot for which he underwent 3rd, 4th and 5th toe TMA on 10/10/2020 and was set up with IV Daptomycin + PO levofloxacin until 11/01/2020. He was now readmitted to the hospital on 11/16/2020 with complaints of right foot pain. Patient again was noted to be septic, febrile and has been blood cultures did turn positive for beta-hemolytic strep group B. Infectious diseases was re consulted. Patient was noted to have worsening wound, was seen by Dr. Herrera and underwent a TMA of the right second toe amputation of the distal half of the third metatarsal shaft. Patient's only complaint is that of pain. He has continued to decline vascular evaluation as well as hemodialysis. Review of Systems: General: fever HEENT: no new visual disturbance Respiratory: No cough, sputum, hemoptysis or shortness of breath Cardiovascular: No chest pain, syncope Gastrointestinal: No nausea, vomiting or diarrhea Genitourinary: No dysuria or hematuria Musculoskeletal: No new or worsening neck pain or back pain. R foot pain Neurologic: No headaches, seizures Hematologic: No easy bruising or bleeding Endocrine: No night sweats or acute weight loss Skin: negative for rash, jaundice Psychiatric: No suicidal or homicidal ideation Past History Past Medical History: arthritis, diabetes, heart failure, hypertension, hyperlipidemia, renal failure, other (See HPI) Past Surgical History: Other (Chest tubes,) Social history: single, Lives alone, smoking Family history: diabetes, hypertension Medications and Allergies Allergies Allergy/AdvReac Type Severity Reaction Status Date / Time oxycodone [From Percocet] AdvReac Vomiting Verified 09/24/20 18:07 Home Medications Medication Instructions Recorded Confirmed Last Taken Type Pravastatin [Pravachol] 20 mg PO QHS #30 tablet 04/20/18 11/16/20 Unknown Rx Amlodipine Besylate [Norvasc] 10 mg PO DAILY 12/06/18 11/16/20 Unknown History Gabapentin 300 mg PO Q8HR 12/06/18 11/16/20 Unknown History Albuterol Mdi (or & Nicu Only) 2 puff IH QID PRN #1 inhalation 08/24/20 11/16/20 Unknown Rx [ProAir HFA Inhaler] Benzonatate [Tessalon Perles] 100 mg PO Q8HR #10 capsule 08/24/20 11/16/20 Unknown Rx DAPTOmycin 800 mg IV Q24H vial 09/28/20 11/16/20 Unknown Rx Insulin NPH/Regular [NovoLIN 70/30] 35 unit SUB-Q BIDDIAB #12 ml 09/28/20 11/16/20 Unknown Rx Metoprolol [Lopressor TAB] 25 mg PO BID #60 tablet 09/28/20 11/16/20 Unknown Rx hydrALAZINE [Apresoline TAB] 100 mg PO Q8HR #90 tab 09/28/20 11/16/20 Unknown Rx HYDROcodone/APAP 5-325 [[place] 1 each PO Q6HR PRN #14 tablet 10/13/20 11/16/20 Unknown Rx 5-325 mg TAB] Active Meds: Active Medications Acetaminophen (Acetaminophen 325 Mg Tab) 650 mg PO Q6H PRN PRN Reason: Pain, Mild (1-3) Last Admin: 11/20/20 12:14 Dose: 650 mg Documented by: Hydrocodone Bitart/Acetaminophen (Hydrocodone/Acetaminophen 5-325 Mg Tab) 1 each PO Q6HR PRN PRN Reason: PAIN Last Admin: 11/19/20 17:16 Dose: 1 each Documented by: Albuterol (Albuterol 2.5 Mg/3 Ml Nebu) 2.5 mg IH Q4HRT PRN PRN Reason: Shortness Of Breath Benzonatate (Benzonatate 100 Mg Cap) 100 mg PO Q8HR [facility] [place] Last Admin: 11/20/20 05:23 Dose: Not Given Documented by: Dextrose (Dextrose 50% In Water (25gm) 50 Ml Syringe) 50 ml IV Q30MIN PRN; Protocol PRN Reason: Hypoglycemia Famotidine (Famotidine 20 Mg Tab) 20 mg PO DAILY [facility] [place] Last Admin: 11/20/20 09:00 Dose: 20 mg Documented by: Gabapentin (Gabapentin 300 Mg Cap) 300 mg PO Q8HR [facility]Y Last Admin: 11/20/20 05:23 Dose: 300 mg Documented by: Heparin Sodium (Porcine) (Heparin 5,000 Unit/1 Ml Vial) 5,000 unit SUB-Q Q8HR BARRY Last Admin: 11/20/20 05:24 Dose: 5,000 unit Documented by: Hydralazine HCl (Hydralazine 100 Mg Tab) 100 mg PO Q8HR BARRY Last Admin: 11/20/20 05:22 Dose: 100 mg Documented by: Hydralazine HCl (Hydralazine 20 Mg/1 Ml Inj) 10 mg IV Q6HR PRN PRN Reason: Hypertension Last Admin: 11/20/20 08:57 Dose: 10 mg Documented by: Hydromorphone HCl (Hydromorphone 1 Mg/1 Ml Inj) 1 mg IV Q3H PRN PRN Reason: Pain , Severe (7-10) Last Admin: 11/20/20 14:01 Dose: 1 mg Documented by: Hydromorphone HCl (Hydromorphone 1 Mg/1 Ml Inj) 0.25 mg IV Q10MIN PRN PRN Reason: Pain, Moderate (4-6) Hydromorphone HCl (Hydromorphone 1 Mg/1 Ml Inj) 0.5 mg IV Q10MIN PRN PRN Reason: Pain , Severe (7-10) Last Admin: 11/19/20 20:19 Dose: 0.5 mg Documented by: Sodium Chloride (Nacl 0.9% 250ml) 250 mls @ 250 mls/hr IV Q12HR [facility] [place] Last Admin: 11/20/20 12:13 Dose: 250 mls/hr Documented by: Ampicillin Sodium/Sulbactam Sodium (Unasyn/Ns 3 Gm/100 Ml) 3 gm in 100 mls @ 200 mls/hr IV Q24H [facility] [place]; Protocol Last Admin: 11/20/20 00:00 Dose: 200 mls/hr Documented by: Sodium Chloride (Nacl 0.9% 1000 Ml) 1,000 mls @ 42 mls/hr IV DIRECT BARRY Last Admin: 11/19/20 11:29 Dose: 42 mls/hr Documented by: Insulin Human Isoph/Insulin Regular (Insulin Nph/Regular 70/30 Inj) 37 unit SUB-Q BIDDIAB [facility] [place] Last Admin: 11/20/20 08:54 Dose: 37 unit Documented by: Insulin Human Lispro (Insulin Lispro 100 Unit/Ml) 0 unit SUB-Q Q4HR [facility] [place]; Protocol Last Admin: 11/20/20 12:04 Dose: Not Given Documented by: Metoprolol Tartrate (Metoprolol Tartrate 25 Mg Tab) 25 mg PO BID [facility] [place] Last Admin: 11/20/20 08:59 Dose: 25 mg Documented by: Ondansetron HCl (Ondansetron 4 Mg/2 Ml Inj) 4 mg IV Q8H PRN PRN Reason: Nausea And Vomiting Ondansetron HCl (Ondansetron 4 Mg/2 Ml Inj) 4 mg IV ONCE PRN PRN Reason: Nausea And Vomiting Pravastatin Sodium (Pravastatin 20 Mg Tab) 20 mg PO QHS [facility] [place] Last Admin: 11/19/20 21:56 Dose: 20 mg Documented by: Sodium Chloride (Sodium Chloride 0.9% 10 Ml Flush Syringe) 10 ml IV BID [facility] [place] Last Admin: 11/20/20 09:02 Dose: 10 ml Documented by: Sodium Chloride (Sodium Chloride 0.9% 10 Ml Flush Syringe) 10 ml IV PRN PRN PRN Reason: LINE FLUSH Physical Examination - Physical Exam Narrative exam: Physical Exam: Constitutional: Alert, cooperative. No acute distress Head, Ears, Nose: Normocephalic, atraumatic. External ears, nose normal Eyes: Conjunctivae/corneas clear. No icterus. No ptosis. Neck: Supple, no meningeal signs Cardiovascular: S1, S2 normal. Respiratory: Good air entry, clear to auscultation bilaterally GI: Soft, non-tender; bowel sounds normal. No peritoneal signs Musculoskeletal: R foot dressing +, warmth + Skin: No rash or abscess Hem/Lymphatic: No palpable cervical or supraclavicular nodes. No lymphangitis Psych: flat affect Neurological: Awake, alert, oriented. No gross abnormality - Constitutional Vitals: Vital Signs Temp Pulse Resp BP Pulse Ox 102.9 F H 115 H 18 162/94 92 11/20/20 11:30 11/20/20 11:30 11/20/20 11:30 11/20/20 11:30 11/20/20 11:30 Temperature -Last 24 Hours Temperature 102.9 F Temperature 98.1 F Temperature 99.4 F Temperature 100.0 F Temperature 97.6 F Temperature 98.1 F Results - Labs CBC & Chem 7: 11/19/20 05:55 11/19/20 05:55 Labs: Abnormal lab results 11/19/20 11/19/20 11/19/20 Range/Units 11:22 14:09 16:32 POC Glucose 195 H 213 H 220 H (70-105) mg/dL 11/19/20 11/20/20 11/20/20 Range/Units 21:54 02:03 06:20 POC Glucose 144 H 159 H 155 H (70-105) mg/dL - Imaging and Cardiology Chest x-ray: report reviewed, image reviewed Assessment and Plan Cultures: 11/16/2020 blood culture: Group B streptococcus 11/16/2020 urine culture: No growth A/P: 45 year old male with history of uncontrolled diabetes mellitus, hyperlipidemia, hypertension, chronic kidney disease, obesity, peripheral vascular disease, with multiple infectious complications especially his right foot in the recent past, now readmitted with: #Sepsis secondary to right foot infection #Group B strep bacteremia: Secondary to right foot infection #Worsening right diabetic foot infection with osteomyelitis: 3rd, 4th and 5th toe TMA on 10/10/2020, now again TMA of the right second toe amputation of the distal half of the third metatarsal shaft on 11/19/2020. Previously has grown MRSA and Pseudomonas from the R foot. #Uncontrolled diabetes mellitus #Advanced CKD: has been refusing hemodialysis. #Peripheral vascular disease: Seen by vascular, declining angiogram. Recs: -switched to IV Cefepime, Flagyl and PO Linezolid -avoid vancomycin due to his advanced CKD and refusal of dialysis -overall poor prognosis given his non compliance and lack of insight -Repeat blood cultures ordered Lynn Pagan MD, FACP [facility] O: [phone] F: [phone]
[2020-11-20] MEDS: CEFEPIME/NS 2 GM/100 ML 2 GM/100 ML BAG IV SCH (15:38)
--- NOTE | 2020-11-20 16:23 | Progress Note ---
Assessment and Plan - Patient Problems (1) Acute kidney injury superimposed on CKD Current Visit: Yes Status: Acute Plan to address problem: Patient has progressed to stage IV at this time and is essentially borderline stage V chronic kidney disease. I highly anticipate that with the needed revascularization procedure secondary to his significant peripheral vascular disease that he will eventually need to be started on replacement therapy. I had previously discussed this with the patient at length on his prior hospitalization at that time he was hesitant to start hemodialysis. He did not follow-up with us in the outpatient office as instructed. he continues to refuse any vascular procedure that may involve contrast exposure so as not to worsen renal injury. He still refuses to undergo hemodialysis if the need arose. We will continue to monitor and his overall renal function remained stable at this time. No acute indication for renal replacement therapy. (2) Osteomyelitis of foot, right, acute Current Visit: Yes Status: Acute Plan to address problem: Surgical recommendations reviewed.status post right second and third TMA with surgery following up at this time. Infectious disease consult noted and patient started on IV antibiotic therapy. Please ensure that antibiotics are dose appropriate for his diminished renal function. (3) Peripheral vascular disease Current Visit: Yes Status: Chronic Plan to address problem: management per vascular surgery. (4) Anemia in chronic illness Current Visit: Yes Status: Chronic Plan to address problem: Transfuse to maintain hemoglobin above 7. (5) Hyperglycemia Current Visit: Yes Status: Acute Plan to address problem: Management per primary attending. (6) Hypertension Current Visit: Yes Status: Chronic Qualifiers: Plan to address problem: monitor blood pressure in the current regimen. Subjective Date of service: 11/20/20 Principal diagnosis: Right foot cellulitis Interval history: patient underwent TMA of his second and partial third toe on right in the setting of osteomyelitis. Infectious disease consult was obtained and has been started on IV antibiotics. His renal function remains in stage IV chronic k idney disease without any significant progression. He still continues to refuse hemodialysis at this time or any vascular intervention that may involve the use of contrast.. Objective - Vital Signs Vital signs: Vital Signs - 12hr 11/20/20 11/20/20 11/20/20 04:53 06:11 06:41 Temperature 99.4 F Pulse Rate 103 H Pulse Rate [ From Monitor] Respiratory 20 17 17 Rate Blood Pressure 163/97 O2 Sat by Pulse 95 Oximetry 11/20/20 11/20/20 11/20/20 07:43 08:15 08:57 Temperature 98.1 F Pulse Rate 107 H 107 H Pulse Rate [ From Monitor] Respiratory 18 Rate Blood Pressure 180/113 180/113 O2 Sat by Pulse 92 95 Oximetry 11/20/20 11/20/20 11/20/20 08:59 10:00 11:30 Temperature 102.9 F H Pulse Rate 107 H 115 H Pulse Rate [ 107 H From Monitor] Respiratory 17 18 Rate Blood Pressure 180/113 162/94 O2 Sat by Pulse 92 Oximetry - General Appearance General appearance: appears stated age EENT: ATNC Neck: no JVD Respiratory: Present: Clear to Ascultation Cardiology: regular Gastrointestinal: normal Integumentary: ulcer Neurologic: no focal deficit Psychiatric: cooperative - Lab 11/19/20 05:55 11/19/20 05:55 Most recent lab results Calcium 9.0 mg/dL (8.4-10.2) 11/19/20 05:55 Magnesium 2.00 mg/dL (1.7-2.3) 11/16/20 10:15 - Allied health notes Allied health notes reviewed: nursing Medications & Allergies - Medications Allergies/Adverse Reactions: Allergies oxycodone [From Percocet] Adverse Reaction (Verified 09/24/20 18:07) Vomiting Home Medications: Home Medications Medication Instructions Recorded Confirmed Last Taken Type Pravastatin [Pravachol] 20 mg PO QHS #30 tablet 04/20/18 11/16/20 Unknown Rx Amlodipine Besylate [Norvasc] 10 mg PO DAILY 12/06/18 11/16/20 Unknown History Gabapentin 300 mg PO Q8HR 12/06/18 11/16/20 Unknown History Albuterol Mdi (or & Nicu Only) 2 puff IH QID PRN #1 inhalation 08/24/20 11/16/20 Unknown Rx [ProAir HFA Inhaler] Benzonatate [Tessalon Perles] 100 mg PO Q8HR #10 capsule 08/24/20 11/16/20 Unknown Rx DAPTOmycin 800 mg IV Q24H vial 09/28/20 11/16/20 Unknown Rx Insulin NPH/Regular [NovoLIN 70/30] 35 unit SUB-Q BIDDIAB #12 ml 09/28/20 11/16/20 Unknown Rx Metoprolol [Lopressor TAB] 25 mg PO BID #60 tablet 09/28/20 11/16/20 Unknown Rx hydrALAZINE [Apresoline TAB] 100 mg PO Q8HR #90 tab 09/28/20 11/16/20 Unknown Rx HYDROcodone/APAP 5-325 [[place] 1 each PO Q6HR PRN #14 tablet 10/13/20 11/16/20 Unknown Rx 5-325 mg TAB] Active Medications: Generic Name Dose Route Start Last Admin Trade Name Freq PRN Reason Stop Dose Admin Acetaminophen 650 mg 11/16/20 12:30 11/20/20 12:14 Acetaminophen 325 Mg Tab PO 650 mg Q6H PRN Administration Pain, Mild (1-3) Hydrocodone Bitart/Acetaminophen 1 each 11/16/20 12:23 11/19/20 17:16 Hydrocodone/Acetaminophen 5-325 Mg Tab PO 1 each Q6HR PRN Administration PAIN Albuterol 2.5 mg 11/16/20 12:30 Albuterol 2.5 Mg/3 Ml Nebu IH Q4HRT PRN Shortness Of Breath Benzonatate 100 mg 11/16/20 14:00 11/20/20 15:39 Benzonatate 100 Mg Cap PO Not Given Q8HR BARRY Dextrose 50 ml 11/16/20 12:30 Dextrose 50% In Water (25gm) 50 Ml Syringe IV Q30MIN PRN Hypoglycemia Protocol Famotidine 20 mg 11/19/20 10:00 11/20/20 09:00 Famotidine 20 Mg Tab PO 20 mg DAILY BARRY Administration Gabapentin 300 mg 11/16/20 14:00 11/20/20 15:39 Gabapentin 300 Mg Cap PO 300 mg Q8HR BARRY Administration Heparin Sodium (Porcine) 5,000 unit 11/16/20 14:00 11/20/20 15:40 Heparin 5,000 Unit/1 Ml Vial SUB-Q 5,000 unit Q8HR BARRY Administration Hydralazine HCl 100 mg 11/16/20 14:00 11/20/20 15:40 Hydralazine 100 Mg Tab PO 100 mg Q8HR BARRY Administration Hydralazine HCl 10 mg 11/16/20 12:30 11/20/20 08:57 Hydralazine 20 Mg/1 Ml Inj IV 10 mg Q6HR PRN Administration Hypertension Hydromorphone HCl 1 mg 11/17/20 09:00 11/20/20 14:01 Hydromorphone 1 Mg/1 Ml Inj IV 1 mg Q3H PRN Administration Pain , Severe (7-10) Hydromorphone HCl 0.25 mg 11/19/20 11:34 Hydromorphone 1 Mg/1 Ml Inj IV Q10MIN PRN Pain, Moderate (4-6) Hydromorphone HCl 0.5 mg 11/19/20 11:34 11/19/20 20:19 Hydromorphone 1 Mg/1 Ml Inj IV 0.5 mg Q10MIN PRN Administration Pain , Severe (7-10) Sodium Chloride 250 mls @ 250 mls/hr 11/17/20 10:00 11/20/20 12:13 Nacl 0.9% 250ml IV 250 mls/hr Q12HR BARRY Administration Sodium Chloride 1,000 mls @ 42 mls/hr 11/19/20 11:30 11/19/20 11:29 Nacl 0.9% 1000 Ml IV 42 mls/hr DIRECT BARRY Administration Cefepime HCl 2 gm in 100 mls @ 200 mls/hr 11/20/20 15:00 11/20/20 15:38 Cefepime/Ns 2 Gm/100 Ml IV 200 mls/hr Q24H BARRY Administration Protocol Metronidazole 500 mg in 100 mls @ 100 mls/hr 11/20/20 15:00 Flagyl 500 Mg/100 Ml IV Q8H BARRY Protocol Insulin Human Isoph/Insulin Regular 37 unit 11/18/20 17:00 11/20/20 08:54 Insulin Nph/Regular 70/30 Inj SUB-Q 37 unit BIDDIAB BARRY Administration Insulin Human Lispro 0 unit 11/17/20 18:00 11/20/20 12:04 Insulin Lispro 100 Unit/Ml SUB-Q Not Given Q4HR BARRY Protocol Linezolid 600 mg 11/20/20 15:00 Linezolid 600 Mg Tab PO Q12HR BARRY Protocol Metoprolol Tartrate 25 mg 11/16/20 22:00 11/20/20 08:59 Metoprolol Tartrate 25 Mg Tab PO 25 mg BID BARRY Administration Ondansetron HCl 4 mg 11/16/20 12:30 Ondansetron 4 Mg/2 Ml Inj IV Q8H PRN Nausea And Vomiting Ondansetron HCl 4 mg 11/19/20 11:34 Ondansetron 4 Mg/2 Ml Inj IV ONCE PRN Nausea And Vomiting Pravastatin Sodium 20 mg 11/16/20 22:00 11/19/20 21:56 Pravastatin 20 Mg Tab PO 20 mg QHS BARRY Administration Sodium Chloride 10 ml 11/16/20 22:00 11/20/20 09:02 Sodium Chloride 0.9% 10 Ml Flush Syringe IV 10 ml BID BARRY Administration Sodium Chloride 10 ml 11/16/20 12:07 Sodium Chloride 0.9% 10 Ml Flush Syringe IV PRN PRN LINE FLUSH
[2020-11-20] MEDS: metroNIDAZOLE/NS 500 MG/100 ML 500 MG/100 ML BAG IV SCH ×2 (17:00→23:22)
[2020-11-20] MEDS: LINEZOLID 600 MG TAB PO SCH ×2 (17:17→23:23)
[2020-11-20] MEDS: PRAVASTATIN 20 MG TAB PO SCH (23:23)
[2020-11-21] MEDS: HYDROmorphone 1 MG/1 ML INJ IV PRN ×5 (01:20→20:21)
[2020-11-21 05:44] LABS: Calcium 8.4 mg/dL (8.4-10.2)
[2020-11-21] MEDS: hydrALAZINE 100 MG TAB PO SCH ×3 (06:15→23:14)
[2020-11-21] MEDS: HEPARIN 5,000 UNIT/1 ML VIAL SUB-Q SCH ×3 (06:15→23:14)
[2020-11-21] MEDS: GABAPENTIN 300 MG CAP PO SCH ×3 (06:15→23:13)
[2020-11-21] MEDS: INSULIN LISPRO 100 UNIT/ML SUB-Q SCH ×4 (06:16→17:17)
[2020-11-21] MEDS: BENZONATATE 100 MG CAP PO SCH ×3 (06:32→23:14)
[2020-11-21] MEDS: LINEZOLID 600 MG TAB PO SCH ×2 (09:16→23:13)
[2020-11-21] MEDS: FAMOTIDINE 20 MG TAB PO SCH (09:16)
[2020-11-21] MEDS: metroNIDAZOLE/NS 500 MG/100 ML 500 MG/100 ML BAG IV SCH ×2 (09:16→17:11)
[2020-11-21] MEDS: METOPROLOL TARTRATE 25 MG TAB PO SCH ×2 (09:16→23:13)
[2020-11-21] MEDS: SODIUM CHLORIDE 0.9% 250ML 250 ML IV SCH (09:17)
[2020-11-21] MEDS: INSULIN NPH/REGULAR 70/30 INJ SUB-Q SCH ×2 (09:37→17:16)
[2020-11-21] MEDS: HYDROcodone/ACETAMINOPHEN 5-325 MG TAB PO PRN (12:53)
[2020-11-21] MEDS: hydrALAZINE 20 MG/1 ML INJ IV PRN ×2 (12:53→20:13)
--- NOTE | 2020-11-21 13:12 | Progress Note ---
Assessment and Plan Cultures: 11/16/2020 blood culture: Group B streptococcus 11/16/2020 urine culture: No growth 11/20/2020 blood culture: no growth thus far A/P: 45 year old male with history of uncontrolled diabetes mellitus, hyperlipidemia, hypertension, chronic kidney disease, obesity, peripheral vascular disease, with multiple infectious complications especially his right foot in the recent past, now readmitted with: #Sepsis secondary to right foot infection #Group B strep bacteremia: Secondary to right foot infection #Worsening right diabetic foot infection with osteomyelitis: 3rd, 4th and 5th toe TMA on 10/10/2020, now again TMA of the right second toe amputation of the distal half of the third metatarsal shaft on 11/19/2020. Previously has grown MRSA and Pseudomonas from the R foot. #Uncontrolled diabetes mellitus #Advanced CKD: has been refusing hemodialysis. Nephrology following. #Peripheral vascular disease: Seen by vascular, declining angiogram. Recs: -continue renally dosed IV Cefepime, Flagyl and PO Linezolid -avoiding vancomycin due to his advanced CKD and refusal of dialysis -overall poor prognosis given his non compliance and lack of insight -f/u repeat blood cultures Lynn Pagan MD, FACP [facility] O: [phone] F: [phone] Subjective Date of service: 11/21/20 Principal diagnosis: Right foot cellulitis Interval history: No fever. Pain in foot present, got VAC placed. Sleepy but asking for pain meds. Objective - Exam Narrative Exam: Physical Exam: Constitutional: Sleepy. No acute distress Head, Ears, Nose: Normocephalic, atraumatic. External ears, nose normal Eyes: Conjunctivae/corneas clear. No icterus. No ptosis. Neck: Supple, no meningeal signs Cardiovascular: S1, S2 normal. Respiratory: Good air entry, clear to auscultation bilaterally GI: Soft, non-tender; bowel sounds normal. No peritoneal signs Musculoskeletal: R foot VAC + Skin: No rash or abscess Hem/Lymphatic: No palpable cervical or supraclavicular nodes. No lymphangitis Psych: flat affect Neurological: sleepy, can be awakened. No gross abnormality - Constitutional Vitals: Vital Signs Temp Pulse Resp BP Pulse Ox 98.4 F 99 H 20 174/104 97 11/21/20 08:27 11/21/20 12:53 11/21/20 09:15 11/21/20 12:53 11/21/20 08:27 Temperature -Last 24 Hours Temperature 98.4 F Temperature 99.5 F Temperature 98.7 F Temperature 99.2 F Temperature 98.9 F - Labs CBC & Chem 7: 11/19/20 05:55 11/21/20 04:45 Labs: Abnormal lab results 11/20/20 11/21/20 Range/Units 16:28 04:45 Sodium 136 L (137-145) mmol/L Carbon Dioxide 18 L (22-30) mmol/L BUN 25 H (9-20) mg/dL Creatinine 4.1 H (0.8-1.3) mg/dL Glucose 106 H (75-100) mg/dL POC Glucose 151 H (70-105) mg/dL
--- NOTE | 2020-11-21 17:09 | Progress Note ---
Assessment and Plan - Patient Problems (1) Acute kidney injury superimposed on CKD Current Visit: Yes Status: Acute Plan to address problem: Acute kidney injury superimposed on stage IV chronic kidney disease. Kidney function is a bit better. Continue to monitor electrolytes and renal function (2) Osteomyelitis of foot, right, acute Current Visit: Yes Status: Acute Plan to address problem: Continue antibiotics (3) Anemia in chronic illness Current Visit: Yes Status: Chronic Plan to address problem: Continue supplements and erythropoiesis stimulating agent as indicated. Follow- up hemoglobin (4) Diabetic foot ulcer with osteomyelitis Current Visit: No Status: Acute Plan to address problem: Blood sugar management by primary attending. Continue antibiotics and local wound care (5) Hypertensive chronic kidney disease with stage 1 through stage 4 chronic kidney disease, or unspecified chronic kidney disease Current Visit: No Status: Acute Plan to address problem: Follow-up blood pressure on current medications. Subjective Date of service: 11/21/20 Principal diagnosis: Right foot cellulitis Interval history: Patient seen lying in bed. He has no new complaints. No chest pain, shortness of breath, nausea or vomiting. Objective - Exam Narrative Exam: Obese middle-aged -Honduran male lying in bed in no acute distress HEENT: NCAT, pink oral mucous membrane Neck: Supple, no venous distention CVS: S1S2 RRR with no murmur, rub or gallop Chest: Clear to auscultation Abdomen: Protuberant, soft, nontender, no organomegaly, bowel sounds are present Extremities: No edema, dressing intact Neuro: Awake, alert no focal deficits - Vital Signs Vital signs: Vital Signs - 12hr 11/21/20 11/21/20 11/21/20 08:27 09:15 09:16 Temperature 98.4 F Pulse Rate 95 H 108 H Respiratory 18 20 Rate Blood Pressure 149/78 178/108 O2 Sat by Pulse 97 Oximetry 11/21/20 11/21/20 11/21/20 10:00 12:53 13:53 Temperature Pulse Rate 99 H Respiratory 20 18 Rate Blood Pressure 174/104 O2 Sat by Pulse Oximetry 11/21/20 15:04 Temperature Pulse Rate Respiratory 20 Rate Blood Pressure O2 Sat by Pulse Oximetry - Lab 11/19/20 05:55 11/21/20 04:45 Most recent lab results Calcium 8.4 mg/dL (8.4-10.2) 11/21/20 04:45 Magnesium 2.00 mg/dL (1.7-2.3) 11/16/20 10:15 Medications & Allergies - Medications Allergies/Adverse Reactions: Allergies oxycodone [From Percocet] Adverse Reaction (Verified 09/24/20 18:07) Vomiting Home Medications: Home Medications Medication Instructions Recorded Confirmed Last Taken Type Pravastatin [Pravachol] 20 mg PO QHS #30 tablet 04/20/18 11/16/20 Unknown Rx Amlodipine Besylate [Norvasc] 10 mg PO DAILY 12/06/18 11/16/20 Unknown History Gabapentin 300 mg PO Q8HR 12/06/18 11/16/20 Unknown History Albuterol Mdi (or & Nicu Only) 2 puff IH QID PRN #1 inhalation 08/24/20 11/16/20 Unknown Rx [ProAir HFA Inhaler] Benzonatate [Tessalon Perles] 100 mg PO Q8HR #10 capsule 08/24/20 11/16/20 Unknown Rx DAPTOmycin 800 mg IV Q24H vial 09/28/20 11/16/20 Unknown Rx Insulin NPH/Regular [NovoLIN 70/30] 35 unit SUB-Q BIDDIAB #12 ml 09/28/20 11/16/20 Unknown Rx Metoprolol [Lopressor TAB] 25 mg PO BID #60 tablet 09/28/20 11/16/20 Unknown Rx hydrALAZINE [Apresoline TAB] 100 mg PO Q8HR #90 tab 09/28/20 11/16/20 Unknown Rx HYDROcodone/APAP 5-325 [[place] 1 each PO Q6HR PRN #14 tablet 10/13/20 11/16/20 Unknown Rx 5-325 mg TAB] Active Medications: Generic Name Dose Route Start Last Admin Trade Name Freq PRN Reason Stop Dose Admin Acetaminophen 650 mg 11/16/20 12:30 11/20/20 12:14 Acetaminophen 325 Mg Tab PO 650 mg Q6H PRN Administration Pain, Mild (1-3) Hydrocodone Bitart/Acetaminophen 1 each 11/16/20 12:23 11/21/20 12:53 Hydrocodone/Acetaminophen 5-325 Mg Tab PO 1 each Q6HR PRN Administration PAIN Albuterol 2.5 mg 11/16/20 12:30 Albuterol 2.5 Mg/3 Ml Nebu IH Q4HRT PRN Shortness Of Breath Benzonatate 100 mg 11/16/20 14:00 11/21/20 15:02 Benzonatate 100 Mg Cap PO 100 mg Q8HR BARRY Administration Dextrose 50 ml 11/16/20 12:30 Dextrose 50% In Water (25gm) 50 Ml Syringe IV Q30MIN PRN Hypoglycemia Protocol Famotidine 20 mg 11/19/20 10:00 11/21/20 09:16 Famotidine 20 Mg Tab PO 20 mg DAILY BARRY Administration Gabapentin 300 mg 11/16/20 14:00 11/21/20 15:02 Gabapentin 300 Mg Cap PO 300 mg Q8HR BARRY Administration Heparin Sodium (Porcine) 5,000 unit 11/16/20 14:00 11/21/20 15:03 Heparin 5,000 Unit/1 Ml Vial SUB-Q 5,000 unit Q8HR BARRY Administration Hydralazine HCl 100 mg 11/16/20 14:00 11/21/20 15:02 Hydralazine 100 Mg Tab PO 100 mg Q8HR BARRY Administration Hydralazine HCl 10 mg 11/16/20 12:30 11/21/20 12:53 Hydralazine 20 Mg/1 Ml Inj IV 10 mg Q6HR PRN Administration Hypertension Hydromorphone HCl 1 mg 11/17/20 09:00 11/21/20 15:04 Hydromorphone 1 Mg/1 Ml Inj IV 1 mg Q3H PRN Administration Pain , Severe (7-10) Sodium Chloride 250 mls @ 250 mls/hr 11/17/20 10:00 11/21/20 09:17 Nacl 0.9% 250ml IV 250 mls/hr Q12HR BARRY Administration Cefepime HCl 2 gm in 100 mls @ 200 mls/hr 11/20/20 15:00 11/20/20 15:38 Cefepime/Ns 2 Gm/100 Ml IV 200 mls/hr Q24H BARRY Administration Protocol Metronidazole 500 mg in 100 mls @ 100 mls/hr 11/20/20 15:00 11/21/20 09:16 Flagyl 500 Mg/100 Ml IV 100 mls/hr Q8H BARRY Administration Protocol Insulin Human Isoph/Insulin Regular 37 unit 11/18/20 17:00 11/21/20 09:37 Insulin Nph/Regular 70/30 Inj SUB-Q 37 unit BIDDIAB BARRY Administration Insulin Human Lispro 0 unit 11/17/20 18:00 11/21/20 09:35 Insulin Lispro 100 Unit/Ml SUB-Q 3 unit Q4HR BARRY Administration Protocol Linezolid 600 mg 11/20/20 15:00 11/21/20 09:16 Linezolid 600 Mg Tab PO 600 mg Q12HR BARRY Administration Protocol Metoprolol Tartrate 25 mg 11/16/20 22:00 11/21/20 09:16 Metoprolol Tartrate 25 Mg Tab PO 25 mg BID BARRY Administration Ondansetron HCl 4 mg 11/16/20 12:30 Ondansetron 4 Mg/2 Ml Inj IV Q8H PRN Nausea And Vomiting Pravastatin Sodium 20 mg 11/16/20 22:00 11/20/20 23:23 Pravastatin 20 Mg Tab PO 20 mg QHS BARRY Administration Sodium Chloride 10 ml 11/16/20 22:00 11/21/20 09:18 Sodium Chloride 0.9% 10 Ml Flush Syringe IV 10 ml BID BARRY Administration Sodium Chloride 10 ml 11/16/20 12:07 Sodium Chloride 0.9% 10 Ml Flush Syringe IV PRN PRN LINE FLUSH
[2020-11-21] MEDS: CEFEPIME/NS 2 GM/100 ML 2 GM/100 ML BAG IV SCH (17:10)
--- NOTE | 2020-11-21 19:01 | Progress Note ---
Assessment and Plan Assessment and plan: --Osteomyelitis of foot, right, acute Current Visit: Yes Status: Acute Plan to address problem: Patient had partial TMA of the right foot involving the third fourth and fifth toes Continue postop and wound care per surgery --Febrile illness, T-max 102.9 F Current Visit: Yes Status: Acute Plan to address problem: Fever significantly improved low-grade at 100.6 secondary to sepsis due to osteomyelitis Patient also has history of MRSA cellulitis ID evaluation noted and appreciated Antibiotics adjusted to cefepime Flagyl and linezolid Follow cultures --Sepsis/due to osteomyelitis foot/toes Current Visit: Yes Status: Acute Plan to address problem: Status post TMA second and third right metatarsal on IV antibiotics cefepime ,Flagyl and linezolid Recommended by ID --Acute on CKD progressing to stage IV Current Visit: Yes Status: Acute Plan to address problem: Due to vasomotor nephropathy avoid nephrotoxins, monitor renal function Nephrology following --Peripheral vascular disease Current Visit: Yes Status: Acute Plan to address problem: Vascular following. Patient refusing vascular work-up and recommendations --h/o MRSA cellulitis Current Visit: No Status: Acute Plan to address problem: CBC, CMP, blood culture, wound culture, IV antibiotic therapy, supportive care. Continue IV vancomycin --Metabolic acidosis Current Visit: No Status: Acute Plan to address problem: Secondary to acute on chronic kidney disease Nephrology following --Diabetes mellitus with hyperglycemia Current Visit: No Status: Chronic Plan to address problem: Accu-Chek sliding scale coverage ADA diet Insulin as needed -- HLD (hyperlipidemia) Current Visit: No Status: Chronic Plan to address problem: Lipid panel, statin therapy, supportive care. Low-cholesterol diet, --hypertension Current Visit: No Status: Chronic Plan to address problem: continue antihypertensives Adjust blood pressure medication -- DVT prophylaxis Current Visit: Yes Status: Acute Plan to address problem: SCDs bilateral lower extremities while in bed, initiate anticoagulation after surgical intervention. Continue wound care. PT OT when patient is able to tolerate DC planning per case management We will closely monitor the patient and adjust the management as needed Plan of care reviewed with the patient and his nurse Brief history 45 YO Male with DM,HTN, HLD, Obesity Hypoventilation Syndrome, CKD, CHF, PAD, Osteomyelitis, Nicotine Dependence presents to ED for evaluation. Pt reports "my foot hurts". Patient states that he has experienced pain in his right lower extremity over the past 1 week with persistently worsening symptoms over the past 2 days. Patient states that his pain is 5/10, constant, worsened with weightbearing, relieved with nonweightbearing. EMS was notified and upon arrival the patient was found to be in distress and subsequently transported to [facility] for further care and evaluation of the aforementioned symptoms. The patient was seen and evaluated in the emergency department. All lab and imaging studies reviewed. The patient was found to have right lower extremity osteomyelitis, right lower extremity cellulitis, sepsis, acute kidney injury, metabolic acidosis, uncontrolled diabetes, as well as accelerated hypertension. Pt admi tted to surgical floor and initiated on sepsis protocol. Surgical team consulted in ED, Nephrology team consulted in ED. Pt denies fever, chills, CP, Palpitations, NVD, Trauma, BRBPR, recent ill contacts, or known exposure to COVID-19. Prior admission on 09/22/2020 reviewed. All medication listed at time of admission has been reconciled. 11/20/2020; patient is febrile T-max 102 F, patient is on empiric antibiotics, del valle culture sent, ID consulted For choice and duration of antibiotics., Will request PT and patient is able to tolerate physical therapy per surgeon 11/21/2020; patient feels slightly better continues to have severe pain, asking for more pain medications Vital signs reviewed, wound VAC applied to the right foot surgical wound. History Interval history: I seen and examined the patient at the bedside Patient's chart and medications reviewed Patient complains of pain in the foot Wound VAC is present Patient low-grade fevers ID evaluation recommendations noted and appreciated Antibiotics are adjusted Vital signs noted Hospitalist Physical - Constitutional Vitals: Temp Pulse Resp BP Pulse Ox 98.7 F 99 H 18 186/111 95 11/21/20 16:43 11/21/20 16:43 11/21/20 16:43 11/21/20 16:43 11/21/20 16:43 General appearance: Present: no acute distress, well-nourished - EENT Eyes: Present: PERRL, EOM intact - Neck Neck: Present: supple, normal ROM - Respiratory Respiratory effort: normal Respiratory: bilateral: diminished, rhonchi, negative: rales, wheezing - Cardiovascular Rhythm: regular Heart Sounds: Present: S1 & S2 - Extremities Extremities: no ischemia, No edema - Abdominal General gastrointestinal: soft, non-tender, non-distended, normal bowel sounds - Integumentary Integumentary: Present: clear, warm - Psychiatric Psychiatric: appropriate mood/affect, cooperative - Neurologic Neurologic: CNII-XII intact, moves all extremities Results - Labs CBC & Chem 7: 11/19/20 05:55 11/21/20 04:45 Labs: Laboratory Last Values WBC 21.2 K/mm3 (4.5-11.0) H 11/19/20 05:55 RBC 3.42 M/mm3 (3.65-5.03) L 11/19/20 05:55 Hgb 8.4 gm/dl (11.8-15.2) L 11/19/20 05:55 Hct 26.3 % (35.5-45.6) L 11/19/20 05:55 MCV 77 fl (84-94) L 11/19/20 05:55 MCH 25 pg (28-32) L 11/19/20 05:55 MCHC 32 % (32-34) 11/19/20 05:55 RDW 18.7 % (13.2-15.2) H 11/19/20 05:55 Plt Count 394 K/mm3 (140-440) 11/19/20 05:55 Lymph % (Auto) 5.9 % (13.4-35.0) L 11/17/20 05:10 [place] % (Auto) 10.7 % (0.0-7.3) H 11/17/20 05:10 Eos % (Auto) 0.4 % (0.0-4.3) 11/17/20 05:10 Baso % (Auto) 0.2 % (0.0-1.8) 11/17/20 05:10 Lymph # (Auto) 1.1 K/mm3 (1.2-5.4) L 11/17/20 05:10 [place] # (Auto) 2.1 K/mm3 (0.0-0.8) H 11/17/20 05:10 Eos # (Auto) 0.1 K/mm3 (0.0-0.4) 11/17/20 05:10 Baso # (Auto) 0.0 K/mm3 (0.0-0.1) 11/17/20 05:10 Add Manual Diff Complete 11/19/20 05:55 Total Counted 100 11/19/20 05:55 Seg Neutrophils % 82.8 % (40.0-70.0) H 11/17/20 05:10 Seg Neuts % (Manual) 82.0 % (40.0-70.0) H 11/19/20 05:55 Lymphocytes % (Manual) 11.0 % (13.4-35.0) L 11/19/20 05:55 Monocytes % (Manual) 7.0 % (0.0-7.3) 11/19/20 05:55 Eosinophils % (Manual) 2.0 % (0.0-4.3) 11/16/20 10:26 Nucleated RBC % Not Reportable 11/19/20 05:55 Seg Neutrophils # 16.1 K/mm3 (1.8-7.7) H 11/17/20 05:10 Seg Neutrophils # Man 17.4 K/mm3 (1.8-7.7) H 11/19/20 05:55 Band Neutrophils # 0.0 K/mm3 11/19/20 05:55 Lymphocytes # (Manual) 2.3 K/mm3 (1.2-5.4) 11/19/20 05:55 Abs React Lymphs (Man) 0.0 K/mm3 11/19/20 05:55 Monocytes # (Manual) 1.5 K/mm3 (0.0-0.8) H 11/19/20 05:55 Eosinophils # (Manual) 0.0 K/mm3 (0.0-0.4) 11/19/20 05:55 Basophils # (Manual) 0.0 K/mm3 (0.0-0.1) 11/19/20 05:55 Metamyelocytes # 0.0 K/mm3 11/19/20 05:55 Myelocytes # 0.0 K/mm3 11/19/20 05:55 Promyelocytes # 0.0 K/mm3 11/19/20 05:55 Blast Cells # 0.0 K/mm3 11/19/20 05:55 WBC Morphology Not Reportable 11/19/20 05:55 Hypersegmented Neuts Not Reportable 11/19/20 05:55 Hyposegmented Neuts Not Reportable 11/19/20 05:55 Hypogranular Neuts Not Reportable 11/19/20 05:55 Smudge Cells Not Reportable 11/19/20 05:55 Toxic Granulation Not Reportable 11/19/20 05:55 Toxic Vacuolation Not Reportable 11/19/20 05:55 Dohle Bodies Not Reportable 11/19/20 05:55 Pelger-Huet Anomaly Not Reportable 11/19/20 05:55 Shayla Rods Not Reportable 11/19/20 05:55 Platelet Estimate Consistent w auto 11/19/20 05:55 Clumped Platelets Not Reportable 11/19/20 05:55 Plt Clumps, EDTA Not Reportable 11/19/20 05:55 Large Platelets Not Reportable 11/19/20 05:55 Giant Platelets Not Reportable 11/19/20 05:55 Platelet Satelliting Not Reportable 11/19/20 05:55 Plt Morphology Comment Not Reportable 11/19/20 05:55 RBC Morphology Not Reportable 11/19/20 05:55 Dimorphic RBCs Not Reportable 11/19/20 05:55 Polychromasia Not Reportable 11/19/20 05:55 Hypochromasia 1+ 11/19/20 05:55 Poikilocytosis Not Reportable 11/19/20 05:55 Anisocytosis Not Reportable 11/19/20 05:55 Microcytosis Not Reportable 11/19/20 05:55 Macrocytosis Not Reportable 11/19/20 05:55 Spherocytes Not Reportable 11/19/20 05:55 Pappenheimer Bodies Not Reportable 11/19/20 05:55 Sickle Cells Not Reportable 11/19/20 05:55 Target Cells Few 11/19/20 05:55 Tear Drop Cells Not Reportable 11/19/20 05:55 Ovalocytes Not Reportable 11/19/20 05:55 Helmet Cells Not Reportable 11/19/20 05:55 [place] Bodies Not Reportable 11/19/20 05:55 [place] Rings Not Reportable 11/19/20 05:55 [place] Cells Not Reportable 11/19/20 05:55 Bite Cells Not Reportable 11/19/20 05:55 Crenated Cell Not Reportable 11/19/20 05:55 Elliptocytes Not Reportable 11/19/20 05:55 Acanthocytes (Spur) Not Reportable 11/19/20 05:55 Rouleaux Not Reportable 11/19/20 05:55 Hemoglobin C Crystals Not Reportable 11/19/20 05:55 Schistocytes Not Reportable 11/19/20 05:55 Malaria parasites Not Reportable 11/19/20 05:55 Cristhian Bodies Not Reportable 11/19/20 05:55 Hem Pathologist Commnt No 11/19/20 05:55 PT 15.1 Sec. (12.2-14.9) H 11/16/20 10:15 INR 1.19 (0.87-1.13) H 11/16/20 10:15 APTT 37.0 Sec. (24.2-36.6) H 11/16/20 10:15 VBG pH 7.332 (7.320-7.420) 11/16/20 10:15 Sodium 136 mmol/L (137-145) L 11/21/20 04:45 Potassium 4.2 mmol/L (3.6-5.0) 11/21/20 04:45 Chloride 104.6 mmol/L (98-107) 11/21/20 04:45 Carbon Dioxide 18 mmol/L (22-30) L 11/21/20 04:45 Anion Gap 18 mmol/L 11/21/20 04:45 BUN 25 mg/dL (9-20) H 11/21/20 04:45 Creatinine 4.1 mg/dL (0.8-1.3) H 11/21/20 04:45 Estimated GFR 19 ml/min 11/21/20 04:45 BUN/Creatinine Ratio 6 % 11/21/20 04:45 Glucose 106 mg/dL (75-100) H 11/21/20 04:45 POC Glucose 105 mg/dL (70-105) 11/21/20 04:43 Lactic Acid 1.00 mmol/L (0.7-2.0) 11/17/20 05:10 Calcium 8.4 mg/dL (8.4-10.2) 11/21/20 04:45 Magnesium 2.00 mg/dL (1.7-2.3) 11/16/20 10:15 Total Bilirubin 0.80 mg/dL (0.1-1.2) 11/19/20 05:55 Direct Bilirubin 0.5 mg/dL (0-0.2) H 11/16/20 10:15 Indirect Bilirubin 0.2 mg/dL 11/16/20 10:15 AST 19 units/L (5-40) 11/19/20 05:55 ALT 16 units/L (7-56) 11/19/20 05:55 Alkaline Phosphatase 245 units/L (35-129) H 11/19/20 05:55 Total Creatine Kinase 138 units/L (55-170) 11/16/20 10:15 Total Protein 8.0 g/dL (6.3-8.2) 11/19/20 05:55 Albumin 2.7 g/dL (3.9-5) L 11/19/20 05:55 Albumin/Globulin Ratio 0.5 % 11/19/20 05:55 Vancomycin Trough 9.8 ug/mL (5.0-20.0) 11/18/20 10:10 Random Vancomycin 6.1 ug/mL (0-40.0) 11/21/20 04:45 Microbiology: Microbiology 11/20/20 15:00 Peripheral/Venous Blood Culture - Preliminary NO GROWTH AFTER 24 HOURS 11/20/20 15:00 Peripheral/Venous Blood Culture - Preliminary NO GROWTH AFTER 24 HOURS 11/16/20 10:15 Peripheral/Venous Blood Culture - Preliminary Beta Hemolytic Strep Group B Elder/IV: Voiding Method Urinal Active Medications - Current Medications Current Medications: Generic Name Dose Route Start Last Admin Trade Name Freq PRN Reason Stop Dose Admin Acetaminophen 650 mg 11/16/20 12:30 11/20/20 12:14 Acetaminophen 325 Mg Tab PO 650 mg Q6H PRN Administration Pain, Mild (1-3) Hydrocodone Bitart/Acetaminophen 1 each 11/16/20 12:23 11/21/20 12:53 Hydrocodone/Acetaminophen 5-325 Mg Tab PO 1 each Q6HR PRN Administration PAIN Albuterol 2.5 mg 11/16/20 12:30 Albuterol 2.5 Mg/3 Ml Nebu IH Q4HRT PRN Shortness Of Breath Benzonatate 100 mg 11/16/20 14:00 11/21/20 15:02 Benzonatate 100 Mg Cap PO 100 mg Q8HR BARRY Administration Dextrose 50 ml 11/16/20 12:30 Dextrose 50% In Water (25gm) 50 Ml Syringe IV Q30MIN PRN Hypoglycemia Protocol Famotidine 20 mg 11/19/20 10:00 11/21/20 09:16 Famotidine 20 Mg Tab PO 20 mg DAILY BARRY Administration Gabapentin 300 mg 11/16/20 14:00 11/21/20 15:02 Gabapentin 300 Mg Cap PO 300 mg Q8HR BARRY Administration Heparin Sodium (Porcine) 5,000 unit 11/16/20 14:00 11/21/20 15:03 Heparin 5,000 Unit/1 Ml Vial SUB-Q 5,000 unit Q8HR BARRY Administration Hydralazine HCl 100 mg 11/16/20 14:00 11/21/20 15:02 Hydralazine 100 Mg Tab PO 100 mg Q8HR BARRY Administration Hydralazine HCl 10 mg 11/16/20 12:30 11/21/20 12:53 Hydralazine 20 Mg/1 Ml Inj IV 10 mg Q6HR PRN Administration Hypertension Hydromorphone HCl 1 mg 11/17/20 09:00 11/21/20 15:04 Hydromorphone 1 Mg/1 Ml Inj IV 1 mg Q3H PRN Administration Pain , Severe (7-10) Sodium Chloride 250 mls @ 250 mls/hr 11/17/20 10:00 11/21/20 09:17 Nacl 0.9% 250ml IV 250 mls/hr Q12HR BARRY Administration Cefepime HCl 2 gm in 100 mls @ 200 mls/hr 11/20/20 15:00 11/21/20 17:10 Cefepime/Ns 2 Gm/100 Ml IV 200 mls/hr Q24H BARRY Administration Protocol Metronidazole 500 mg in 100 mls @ 100 mls/hr 11/20/20 15:00 11/21/20 17:11 Flagyl 500 Mg/100 Ml IV 100 mls/hr Q8H BARRY Administration Protocol Insulin Human Isoph/Insulin Regular 37 unit 11/18/20 17:00 11/21/20 17:16 Insulin Nph/Regular 70/30 Inj SUB-Q 37 unit BIDDIAB BARRY Administration Insulin Human Lispro 0 unit 11/17/20 18:00 11/21/20 17:17 Insulin Lispro 100 Unit/Ml SUB-Q 6 unit Q4HR BARRY Administration Protocol Linezolid 600 mg 11/20/20 15:00 11/21/20 09:16 Linezolid 600 Mg Tab PO 600 mg Q12HR BARRY Administration Protocol Metoprolol Tartrate 25 mg 11/16/20 22:00 11/21/20 09:16 Metoprolol Tartrate 25 Mg Tab PO 25 mg BID BARRY Administration Ondansetron HCl 4 mg 11/16/20 12:30 Ondansetron 4 Mg/2 Ml Inj IV Q8H PRN Nausea And Vomiting Pravastatin Sodium 20 mg 11/16/20 22:00 11/20/20 23:23 Pravastatin 20 Mg Tab PO 20 mg QHS BARRY Administration Sodium Chloride 10 ml 11/16/20 22:00 11/21/20 09:18 Sodium Chloride 0.9% 10 Ml Flush Syringe IV 10 ml BID BARRY Administration Sodium Chloride 10 ml 11/16/20 12:07 Sodium Chloride 0.9% 10 Ml Flush Syringe IV PRN PRN LINE FLUSH
[2020-11-21] MEDS: PRAVASTATIN 20 MG TAB PO SCH (23:26)
[2020-11-22] MEDS: HYDROmorphone 1 MG/1 ML INJ IV PRN ×6 (00:13→21:01)
[2020-11-22] MEDS: metroNIDAZOLE/NS 500 MG/100 ML 500 MG/100 ML BAG IV SCH ×3 (00:13→14:28)
[2020-11-22] MEDS: INSULIN LISPRO 100 UNIT/ML SUB-Q SCH ×4 (03:36→17:56)
[2020-11-22] MEDS: SODIUM CHLORIDE 0.9% 250ML 250 ML IV SCH ×2 (04:10→09:59)
[2020-11-22] MEDS: HEPARIN 5,000 UNIT/1 ML VIAL SUB-Q SCH ×2 (05:55→14:29)
[2020-11-22] MEDS: hydrALAZINE 100 MG TAB PO SCH ×2 (05:55→14:28)
[2020-11-22] MEDS: GABAPENTIN 300 MG CAP PO SCH ×2 (05:55→14:28)
[2020-11-22] MEDS: hydrALAZINE 20 MG/1 ML INJ IV PRN ×2 (06:09→10:00)
[2020-11-22 06:34] LABS: Hematocrit 26.6 % (35.5-45.6); Hemoglobin 8.4 gm/dl (11.8-15.2); Mean Corpuscular HGB Conc 32 % (32-34); Mean Corpuscular Volume 76 fl (84-94); Platelet Count 513 K/mm3 (140-440); Red Blood Count 3.49 M/mm3 (3.65-5.03); Red Cell Distribution Width 18.7 % (13.2-15.2)
[2020-11-22] MEDS: INSULIN NPH/REGULAR 70/30 INJ SUB-Q SCH ×2 (09:57→17:57)
[2020-11-22] MEDS: FAMOTIDINE 20 MG TAB PO SCH (09:58)
[2020-11-22] MEDS: METOPROLOL TARTRATE 25 MG TAB PO SCH (10:00)
[2020-11-22] MEDS: LINEZOLID 600 MG TAB PO SCH (10:18)
[2020-11-22 11:18] LABS: Myelocytes # (Manual) 0.2 K/mm3; Total Cells Counted 100
[2020-11-22 11:19] LABS: Hypochromasia 1+
[2020-11-22 11:20] LABS: Platelet Estimate Consistent w Auto; Target Cells Rare
[2020-11-22] MEDS: HYDROcodone/ACETAMINOPHEN 5-325 MG TAB PO PRN (11:41)
--- NOTE | 2020-11-22 13:39 | Progress Note ---
Assessment and Plan Cultures: 11/16/2020 blood culture: Group B streptococcus 11/16/2020 urine culture: No growth 11/20/2020 blood culture: no growth thus far A/P: 45 year old male with history of uncontrolled diabetes mellitus, hyperlipidemia, hypertension, chronic kidney disease, obesity, peripheral vascular disease, with multiple infectious complications especially his right foot in the recent past, now readmitted with: #Sepsis secondary to right foot infection #Group B strep bacteremia: Secondary to right foot infection #Worsening right diabetic foot infection with osteomyelitis: 3rd, 4th and 5th toe TMA on 10/10/2020, now again TMA of the right second toe amputation of the distal half of the third metatarsal shaft on 11/19/2020. Previously has grown MRSA and Pseudomonas from the R foot. #Uncontrolled diabetes mellitus #Advanced CKD: has been refusing hemodialysis. Nephrology following. #Peripheral vascular disease: Seen by vascular, declining angiogram. Recs: -continue renally dosed IV Cefepime, Flagyl and PO Linezolid -avoiding vancomycin due to his advanced CKD and refusal of dialysis -overall poor prognosis given his non compliance and lack of insight -f/u repeat blood cultures -hope to stop Flagyl soon Lynn Pagan MD, FACP [facility] O: [phone] F: [phone] Subjective Date of service: 11/22/20 Principal diagnosis: Right foot cellulitis Interval history: No fever. Pain in foot present. Objective - Exam Narrative Exam: Physical Exam: Constitutional: Awake. No acute distress Head, Ears, Nose: Normocephalic, atraumatic. External ears, nose normal Eyes: Conjunctivae/corneas clear. No icterus. No ptosis. Neck: Supple, no meningeal signs Cardiovascular: S1, S2 normal. Respiratory: Good air entry, clear to auscultation bilaterally GI: Soft, non-tender; bowel sounds normal. No peritoneal signs Musculoskeletal: R foot VAC + Skin: No rash or abscess Hem/Lymphatic: No palpable cervical or supraclavicular nodes. No lymphangitis Psych: flat affect Neurological: awake, no gross abnormality - Constitutional Vitals: Vital Signs Temp Pulse Resp BP Pulse Ox 98.1 F 107 H 20 185/111 96 11/22/20 12:00 11/22/20 12:00 11/22/20 12:00 11/22/20 12:00 11/22/20 12:00 Temperature -Last 24 Hours Temperature 98.1 F Temperature 98.0 F Temperature 99.2 F Temperature 98.7 F Temperature 99.2 F Temperature 98.7 F - Labs CBC & Chem 7: 11/22/20 05:26 11/21/20 04:45 Labs: Abnormal lab results 11/21/20 11/21/20 11/21/20 Range/Units 11:47 16:41 23:49 WBC (4.5-11.0) K/mm3 RBC (3.65-5.03) M/mm3 Hgb (11.8-15.2) gm/dl Hct (35.5-45.6) % MCV (84-94) fl MCH (28-32) pg RDW (13.2-15.2) % Plt Count (140-440) K/mm3 Seg Neuts % (Manual) (40.0-70.0) % Lymphocytes % (Manual) (13.4-35.0) % Seg Neutrophils # Man (1.8-7.7) K/mm3 Monocytes # (Manual) (0.0-0.8) K/mm3 POC Glucose 171 H 206 H 148 H (70-105) mg/dL 11/22/20 11/22/20 Range/Units 05:26 08:30 WBC 21.0 H (4.5-11.0) K/mm3 RBC 3.49 L (3.65-5.03) M/mm3 Hgb 8.4 L (11.8-15.2) gm/dl Hct 26.6 L (35.5-45.6) % MCV 76 L (84-94) fl MCH 24 L (28-32) pg RDW 18.7 H (13.2-15.2) % Plt Count 513 H (140-440) K/mm3 Seg Neuts % (Manual) 76.0 H (40.0-70.0) % Lymphocytes % (Manual) 13.0 L (13.4-35.0) % Seg Neutrophils # Man 16.0 H (1.8-7.7) K/mm3 Monocytes # (Manual) 1.5 H (0.0-0.8) K/mm3 POC Glucose 173 H (70-105) mg/dL
[2020-11-22] MEDS ORDERED: hydrALAZINE 25 MG TAB PO SCH (14:00)
[2020-11-22] MEDS: CEFEPIME/NS 2 GM/100 ML 2 GM/100 ML BAG IV SCH (14:28)
[2020-11-22] MEDS: BENZONATATE 100 MG CAP PO SCH (14:28)
--- NOTE | 2020-11-22 16:24 | Progress Note ---
Assessment and Plan Assessment and plan: --Right hip and back pain; Current Visit: Yes Status: Acute Plan to address problem: Pain medications, x-ray lumbar spine and right hip Consider orthopedic surgeon evaluation if any abnormality --Osteomyelitis of foot, right, acute Current Visit: Yes Status: Acute Plan to address problem: s/p partial TMA of the right foot involving the third fourth and fifth toes. Continue postop and wound care, wound VAC per surgery Physical therapy occupational therapy when patient is ready --Febrile illness, T-max 102.9 F Current Visit: Yes Status: Acute Plan to address problem: Afebrile last 24 hours, Follow cultures ID evaluated the patient, adjusted the antibiotics --Sepsis/due to osteomyelitis foot/toes Current Visit: Yes Status: Acute Plan to address problem: Status post TMA second and third right metatarsal on IV antibiotics cefepime ,Flagyl and linezolid Recommended by ID --Acute on CKD progressing to stage IV Current Visit: Yes Status: Acute Plan to address problem: Due to vasomotor nephropathy avoid nephrotoxins, monitor renal function Nephrology following --Peripheral vascular disease Current Visit: Yes Status: Acute Plan to address problem: Vascular following. Patient refusing vascular work-up and recommendations --h/o MRSA cellulitis Current Visit: No Status: Acute Plan to address problem: CBC, CMP, blood culture, wound culture, IV antibiotic therapy, supportive care. Continue IV vancomycin --Metabolic acidosis Current Visit: No Status: Acute Plan to address problem: Secondary to acute on chronic kidney disease Nephrology following --Diabetes mellitus with hyperglycemia Current Visit: No Status: Chronic Plan to address problem: Accu-Chek sliding scale coverage ADA diet Insulin as needed -- HLD (hyperlipidemia) Current Visit: No Status: Chronic Plan to address problem: Lipid panel, statin therapy, supportive care. Low-cholesterol diet, --hypertension Current Visit: No Status: Chronic Plan to address problem: continue antihypertensives Adjust blood pressure medication -- DVT prophylaxis Current Visit: Yes Status: Acute Plan to address problem: Heparin subcu Continue wound care. PT OT when patient is able to tolerate DC planning per case management Plan of care reviewed with the patient and his nurse Brief history 45 YO Male with DM,HTN, HLD, Obesity Hypoventilation Syndrome, CKD, CHF, PAD, Osteomyelitis, Nicotine Dependence presents to ED for evaluation. Pt reports "my foot hurts". Patient states that he has experienced pain in his right lower extremity over the past 1 week with persistently worsening symptoms over the past 2 days. Patient states that his pain is 5/10, constant, worsened with weightbearing, relieved with nonweightbearing. EMS was notified and upon arrival the patient was found to be in distress and subsequently transported to [facility] for further care and evaluation of the aforementioned symptoms. The patient was seen and evaluated in the emergency department. All lab and imaging studies reviewed. The patient was found to have right lower extremity osteomyelitis, right lower extremity cellulitis, sepsis, acute kidney injury, metabolic acidosis, uncontrolled diabetes, as well as accelerated hypertension. Pt admitted to surgical floor and initiated on sepsis protocol. Surgical team consulted in ED, Nephrology team consulted in ED. Pt denies fever, chills, CP, Palpitations, NVD, Trauma, BRBPR, recent ill contacts, or known exposure to COVID-19. Prior admission on 09/22/2020 reviewed. All medication listed at time of admission has been reconciled. 11/20/2020; patient is febrile T-max 102 F, patient is on empiric antibiotics, del valle culture sent, ID consulted For choice and duration of antibiotics., Will request PT and patient is able to tolerate physical therapy per surgeon 11/21/2020; patient feels slightly better continues to have severe pain, asking f or more pain medications Vital signs reviewed, wound VAC applied to the right foot surgical wound. 11/22/2020; patient complains of some right hip pain and low back pain No history of fall, patient gives history of back surgery Will check x-ray hip and back History Interval history: Patient feels slightly better still has some pain in the leg Also complains of back pain and right hip pain Afebrile Vital signs noted Hospitalist Physical - Constitutional Vitals: Temp Pulse Resp BP Pulse Ox 98.1 F 107 H 20 185/111 96 11/22/20 12:00 11/22/20 12:00 11/22/20 12:00 11/22/20 12:11/22/20 12:00 General appearance: Present: no acute distress, well-nourished - EENT Eyes: Present: PERRL, EOM intact - Neck Neck: Present: supple, normal ROM - Respiratory Respiratory effort: normal Respiratory: bilateral: diminished, negative: rales, rhonchi, wheezing - Cardiovascular Rhythm: regular Heart Sounds: Present: S1 & S2 - Extremities Extremities: no ischemia, No edema, abnormal (Surgical dressing in place, wound VAC intact) - Abdominal General gastrointestinal: soft, non-tender, non-distended, normal bowel sounds - Integumentary Integumentary: Present: clear, warm - Psychiatric Psychiatric: appropriate mood/affect, cooperative - Neurologic Neurologic: CNII-XII intact, moves all extremities Results - Labs CBC & Chem 7: 11/22/20 05:26 11/21/20 04:45 Labs: Laboratory Last Values WBC 21.0 K/mm3 (4.5-11.0) H 11/22/20 05:26 RBC 3.49 M/mm3 (3.65-5.03) L 11/22/20 05:26 Hgb 8.4 gm/dl (11.8-15.2) L 11/22/20 05:26 Hct 26.6 % (35.5-45.6) L 11/22/20 05:26 MCV 76 fl (84-94) L 11/22/20 05:26 MCH 24 pg (28-32) L 11/22/20 05:26 MCHC 32 % (32-34) 11/22/20 05:26 RDW 18.7 % (13.2-15.2) H 11/22/20 05:26 Plt Count 513 K/mm3 (140-440) H 11/22/20 05:26 Lymph % (Auto) 5.9 % (13.4-35.0) L 11/17/20 05:10 [place] % (Auto) 10.7 % (0.0-7.3) H 11/17/20 05:10 Eos % (Auto) 0.4 % (0.0-4.3) 11/17/20 05:10 Baso % (Auto) 0.2 % (0.0-1.8) 11/17/20 05:10 Lymph # (Auto) 1.1 K/mm3 (1.2-5.4) L 11/17/20 05:10 [place] # (Auto) 2.1 K/mm3 (0.0-0.8) H 11/17/20 05:10 Eos # (Auto) 0.1 K/mm3 (0.0-0.4) 11/17/20 05:10 Baso # (Auto) 0.0 K/mm3 (0.0-0.1) 11/17/20 05:10 Add Manual Diff Complete 11/22/20 05:26 Total Counted 100 11/22/20 05:26 Seg Neutrophils % 82.8 % (40.0-70.0) H 11/17/20 05:10 Seg Neuts % (Manual) 76.0 % (40.0-70.0) H 11/22/20 05:26 Lymphocytes % (Manual) 13.0 % (13.4-35.0) L 11/22/20 05:26 Monocytes % (Manual) 7.0 % (0.0-7.3) 11/22/20 05:26 Eosinophils % (Manual) 2.0 % (0.0-4.3) 11/22/20 05:26 Metamyelocytes % 1.0 % 11/22/20 05:26 Myelocytes % 1.0 % 11/22/20 05:26 Nucleated RBC % Not Reportable 11/22/20 05:26 Seg Neutrophils # 16.1 K/mm3 (1.8-7.7) H 11/17/20 05:10 Seg Neutrophils # Man 16.0 K/mm3 (1.8-7.7) H 11/22/20 05:26 Band Neutrophils # 0.0 K/mm3 11/22/20 05:26 Lymphocytes # (Manual) 2.7 K/mm3 (1.2-5.4) 11/22/20 05:26 Abs React Lymphs (Man) 0.0 K/mm3 11/22/20 05:26 Monocytes # (Manual) 1.5 K/mm3 (0.0-0.8) H 11/22/20 05:26 Eosinophils # (Manual) 0.4 K/mm3 (0.0-0.4) 11/22/20 05:26 Basophils # (Manual) 0.0 K/mm3 (0.0-0.1) 11/22/20 05:26 Metamyelocytes # 0.2 K/mm3 11/22/20 05:26 Myelocytes # 0.2 K/mm3 11/22/20 05:26 Promyelocytes # 0.0 K/mm3 11/22/20 05:26 Blast Cells # 0.0 K/mm3 11/22/20 05:26 WBC Morphology Not Reportable 11/22/20 05:26 Hypersegmented Neuts Not Reportable 11/22/20 05:26 Hyposegmented Neuts Not Reportable 11/22/20 05:26 Hypogranular Neuts Not Reportable 11/22/20 05:26 Smudge Cells Not Reportable 11/22/20 05:26 Toxic Granulation Not Reportable 11/22/20 05:26 Toxic Vacuolation Not Reportable 11/22/20 05:26 Dohle Bodies Not Reportable 11/22/20 05:26 Pelger-Huet Anomaly Not Reportable 11/22/20 05:26 Shayla Rods Not Reportable 11/22/20 05:26 Platelet Estimate Consistent w auto 11/22/20 05:26 Clumped Platelets Not Reportable 11/22/20 05:26 Plt Clumps, EDTA Not Reportable 11/22/20 05:26 Large Platelets Not Reportable 11/22/20 05:26 Giant Platelets Not Reportable 11/22/20 05:26 Platelet Satelliting Not Reportable 11/22/20 05:26 Plt Morphology Comment Not Reportable 11/22/20 05:26 RBC Morphology Not Reportable 11/22/20 05:26 Dimorphic RBCs Not Reportable 11/22/20 05:26 Polychromasia Not Reportable 11/22/20 05:26 Hypochromasia 1+ 11/22/20 05:26 Poikilocytosis Not Reportable 11/22/20 05:26 Anisocytosis Not Reportable 11/22/20 05:26 Microcytosis Not Reportable 11/22/20 05:26 Macrocytosis Not Reportable 11/22/20 05:26 Spherocytes Not Reportable 11/22/20 05:26 Pappenheimer Bodies Not Reportable 11/22/20 05:26 Sickle Cells Not Reportable 11/22/20 05:26 Target Cells Rare 11/22/20 05:26 Tear Drop Cells Not Reportable 11/22/20 05:26 Ovalocytes Not Reportable 11/22/20 05:26 Helmet Cells Not Reportable 11/22/20 05:26 Brock-[place] Bodies Not Reportable 11/22/20 05:26 [place] Rings Not Reportable 11/22/20 05:26 [place] Cells Not Reportable 11/22/20 05:26 Bite Cells Not Reportable 11/22/20 05:26 Crenated Cell Not Reportable 11/22/20 05:26 Elliptocytes Not Reportable 11/22/20 05:26 Acanthocytes (Spur) Not Reportable 11/22/20 05:26 Rouleaux Not Reportable 11/22/20 05:26 Hemoglobin C Crystals Not Reportable 11/22/20 05:26 Schistocytes Not Reportable 11/22/20 05:26 Malaria parasites Not Reportable 11/22/20 05:26 Cristhian Bodies Not Reportable 11/22/20 05:26 Hem Pathologist Commnt No 11/22/20 05:26 PT 15.1 Sec. (12.2-14.9) H 11/16/20 10:15 INR 1.19 (0.87-1.13) H 11/16/20 10:15 APTT 37.0 Sec. (24.2-36.6) H 11/16/20 10:15 VBG pH 7.332 (7.320-7.420) 11/16/20 10:15 Sodium 136 mmol/L (137-145) L 11/21/20 04:45 Potassium 4.2 mmol/L (3.6-5.0) 11/21/20 04:45 Chloride 104.6 mmol/L (98-107) 11/21/20 04:45 Carbon Dioxide 18 mmol/L (22-30) L 11/21/20 04:45 Anion Gap 18 mmol/L 11/21/20 04:45 BUN 25 mg/dL (9-20) H 11/21/20 04:45 Creatinine 4.1 mg/dL (0.8-1.3) H 11/21/20 04:45 Estimated GFR 19 ml/min 11/21/20 04:45 BUN/Creatinine Ratio 6 % 11/21/20 04:45 Glucose 106 mg/dL (75-100) H 11/21/20 04:45 POC Glucose 173 mg/dL (70-105) H 11/22/20 08:30 Lactic Acid 1.00 mmol/L (0.7-2.0) 11/17/20 05:10 Calcium 8.4 mg/dL (8.4-10.2) 11/21/20 04:45 Magnesium 2.00 mg/dL (1.7-2.3) 11/16/20 10:15 Total Bilirubin 0.80 mg/dL (0.1-1.2) 11/19/20 05:55 Direct Bilirubin 0.5 mg/dL (0-0.2) H 11/16/20 10:15 Indirect Bilirubin 0.2 mg/dL 11/16/20 10:15 AST 19 units/L (5-40) 11/19/20 05:55 ALT 16 units/L (7-56) 11/19/20 05:55 Alkaline Phosphatase 245 units/L (35-129) H 11/19/20 05:55 Total Creatine Kinase 138 units/L (55-170) 11/16/20 10:15 Total Protein 8.0 g/dL (6.3-8.2) 11/19/20 05:55 Albumin 2.7 g/dL (3.9-5) L 11/19/20 05:55 Albumin/Globulin Ratio 0.5 % 11/19/20 05:55 Vancomycin Trough 9.8 ug/mL (5.0-20.0) 11/18/20 10:10 Random Vancomycin 6.1 ug/mL (0-40.0) 11/21/20 04:45 Microbiology: Microbiology 11/20/20 15:00 Peripheral/Venous Blood Culture - Preliminary NO GROWTH AFTER 48 HOURS 11/20/20 15:00 Peripheral/Venous Blood Culture - Preliminary NO GROWTH AFTER 48 HOURS 11/16/20 10:15 Peripheral/Venous Blood Culture - Preliminary Beta Hemolytic Strep Group B Elder/IV: Voiding Method Urinal Active Medications - Current Medications Current Medications: Generic Name Dose Route Start Last Admin Trade Name Freq PRN Reason Stop Dose Admin Acetaminophen 650 mg 11/16/20 12:30 11/20/20 12:14 Acetaminophen 325 Mg Tab PO 650 mg Q6H PRN Administration Pain, Mild (1-3) Hydrocodone Bitart/Acetaminophen 1 each 11/16/20 12:23 11/22/20 11:41 Hydrocodone/Acetaminophen 5-325 Mg Tab PO 1 each Q6HR PRN Administration PAIN Albuterol 2.5 mg 11/16/20 12:30 Albuterol 2.5 Mg/3 Ml Nebu IH Q4HRT PRN Shortness Of Breath Benzonatate 100 mg 11/16/20 14:00 11/22/20 14:28 Benzonatate 100 Mg Cap PO 100 mg Q8HR BARRY Administration Dextrose 50 ml 11/16/20 12:30 Dextrose 50% In Water (25gm) 50 Ml Syringe IV Q30MIN PRN Hypoglycemia Protocol Famotidine 20 mg 11/19/20 10:00 11/22/20 09:58 Famotidine 20 Mg Tab PO 20 mg DAILY BARRY Administration Gabapentin 300 mg 11/16/20 14:00 11/22/20 14:28 Gabapentin 300 Mg Cap PO 300 mg Q8HR BARRY Administration Heparin Sodium (Porcine) 5,000 unit 11/16/20 14:00 11/22/20 14:29 Heparin 5,000 Unit/1 Ml Vial SUB-Q 5,000 unit Q8HR BARRY Administration Hydralazine HCl 100 mg 11/16/20 14:00 11/22/20 14:28 Hydralazine 100 Mg Tab PO 100 mg Q8HR BARRY Administration Hydralazine HCl 10 mg 11/22/20 12:57 Hydralazine 20 Mg/1 Ml Inj IV Q4HR PRN Blood Pressure Hydromorphone HCl 1 mg 11/22/20 13:01 11/22/20 15:36 Hydromorphone 1 Mg/1 Ml Inj IV 1 mg Q4H PRN Administration Pain , Severe (7-10) Sodium Chloride 250 mls @ 250 mls/hr 11/17/20 10:00 11/22/20 09:59 Nacl 0.9% 250ml IV 250 mls/hr Q12HR BARRY Administration Cefepime HCl 2 gm in 100 mls @ 200 mls/hr 11/20/20 15:00 11/22/20 14:28 Cefepime/Ns 2 Gm/100 Ml IV 200 mls/hr Q24H BARRY Administration Protocol Metronidazole 500 mg in 100 mls @ 100 mls/hr 11/20/20 15:00 11/22/20 14:28 Flagyl 500 Mg/100 Ml IV 100 mls/hr Q8H BARRY Administration Protocol Insulin Human Isoph/Insulin Regular 37 unit 11/18/20 17:00 11/22/20 09:57 Insulin Nph/Regular 70/30 Inj SUB-Q 37 unit BIDDIAB BARRY Administration Insulin Human Lispro 0 unit 11/17/20 18:00 11/22/20 09:57 Insulin Lispro 100 Unit/Ml SUB-Q 3 unit Q4HR BARRY Administration Protocol Linezolid 600 mg 11/20/20 15:00 11/22/20 10:18 Linezolid 600 Mg Tab PO 600 mg Q12HR BARRY Administration Protocol Metoprolol Tartrate 25 mg 11/16/20 22:00 11/22/20 10:00 Metoprolol Tartrate 25 Mg Tab PO 25 mg BID BARRY Administration Ondansetron HCl 4 mg 11/16/20 12:30 Ondansetron 4 Mg/2 Ml Inj IV Q8H PRN Nausea And Vomiting Pravastatin Sodium 20 mg 11/16/20 22:00 11/21/20 23:26 Pravastatin 20 Mg Tab PO 20 mg QHS BARRY Administration Sodium Chloride 10 ml 11/16/20 22:00 11/22/20 10:18 Sodium Chloride 0.9% 10 Ml Flush Syringe IV 10 ml BID BARRY Administration Sodium Chloride 10 ml 11/16/20 12:07 Sodium Chloride 0.9% 10 Ml Flush Syringe IV PRN PRN LINE FLUSH
--- NOTE | 2020-11-22 17:00 | Progress Note ---
Assessment and Plan - Patient Problems (1) Acute kidney injury superimposed on CKD Current Visit: Yes Status: Acute Plan to address problem: Acute kidney injury superimposed on stage IV chronic kidney disease. Kidney function test was not done today. Continue to monitor electrolytes and renal function (2) Osteomyelitis of foot, right, acute Current Visit: Yes Status: Acute Plan to address problem: Continue antibiotics (3) Anemia in chronic illness Current Visit: Yes Status: Chronic Plan to address problem: Continue supplements and erythropoiesis stimulating agent as indicated. Follow- up hemoglobin (4) Diabetic foot ulcer with osteomyelitis Current Visit: No Status: Acute Plan to address problem: Blood sugar management by primary attending. Continue antibiotics and local wound care (5) Hypertensive chronic kidney disease with stage 1 through stage 4 chronic kidney disease, or unspecified chronic kidney disease Current Visit: No Status: Acute Plan to address problem: Follow-up blood pressure on current medications. Subjective Date of service: 11/22/20 Principal diagnosis: Right foot cellulitis Interval history: Patient seen lying in bed. He has no new complaints. Still has pain in his right foot. No chest pain, shortness of breath, nausea or vomiting. Objective - Exam Narrative Exam: Obese middle-aged -Indian male lying in bed in no acute distress HEENT: NCAT, pink oral mucous membrane Neck: Supple, no venous distention CVS: S1S2 RRR with no murmur, rub or gallop Chest: Clear to auscultation Abdomen: Protuberant, soft, nontender, no organomegaly, bowel sounds are present Extremities: No edema, dressing intact right foot Neuro: Awake, alert no focal deficits - Vital Signs Vital signs: Vital Signs - 12hr 11/22/20 11/22/20 11/22/20 05:50 06:09 06:53 Temperature 99.2 F Pulse Rate 103 H 103 H Respiratory 16 7 L Rate Blood Pressure 189/115 Blood Pressure 189/115 [Left] O2 Sat by Pulse 96 Oximetry 11/22/20 11/22/20 11/22/20 08:27 10:00 12:00 Temperature 98.0 F 98.1 F Pulse Rate 115 H 116 H 107 H Respiratory 20 20 Rate Blood Pressure 185/112 185/112 Blood Pressure 185/111 [Left] O2 Sat by Pulse 98 96 Oximetry - Lab 11/22/20 05:26 11/21/20 04:45 Most recent lab results Calcium 8.4 mg/dL (8.4-10.2) 11/21/20 04:45 Magnesium 2.00 mg/dL (1.7-2.3) 11/16/20 10:15 Medications & Allergies - Medications Allergies/Adverse Reactions: Allergies oxycodone [From Percocet] Adverse Reaction (Verified 09/24/20 18:07) Vomiting Home Medications: Home Medications Medication Instructions Recorded Confirmed Last Taken Type Pravastatin [Pravachol] 20 mg PO QHS #30 tablet 04/20/18 11/16/20 Unknown Rx Amlodipine Besylate [Norvasc] 10 mg PO DAILY 12/06/18 11/16/20 Unknown History Gabapentin 300 mg PO Q8HR 12/06/18 11/16/20 Unknown History Albuterol Mdi (or & Nicu Only) 2 puff IH QID PRN #1 inhalation 08/24/20 11/16/20 Unknown Rx [ProAir HFA Inhaler] Benzonatate [Tessalon Perles] 100 mg PO Q8HR #10 capsule 08/24/20 11/16/20 Unknown Rx DAPTOmycin 800 mg IV Q24H vial 09/28/20 11/16/20 Unknown Rx Insulin NPH/Regular [NovoLIN 70/30] 35 unit SUB-Q BIDDIAB #12 ml 09/28/20 11/16/20 Unknown Rx Metoprolol [Lopressor TAB] 25 mg PO BID #60 tablet 09/28/20 11/16/20 Unknown Rx hydrALAZINE [Apresoline TAB] 100 mg PO Q8HR #90 tab 09/28/20 11/16/20 Unknown Rx HYDROcodone/APAP 5-325 [[place] 1 each PO Q6HR PRN #14 tablet 10/13/20 11/16/20 Unknown Rx 5-325 mg TAB] Active Medications: Generic Name Dose Route Start Last Admin Trade Name Freq PRN Reason Stop Dose Admin Acetaminophen 650 mg 11/16/20 12:30 11/20/20 12:14 Acetaminophen 325 Mg Tab PO 650 mg Q6H PRN Administration Pain, Mild (1-3) Hydrocodone Bitart/Acetaminophen 1 each 11/16/20 12:23 11/22/20 11:41 Hydrocodone/Acetaminophen 5-325 Mg Tab PO 1 each Q6HR PRN Administration PAIN Albuterol 2.5 mg 11/16/20 12:30 Albuterol 2.5 Mg/3 Ml Nebu IH Q4HRT PRN Shortness Of Breath Benzonatate 100 mg 11/16/20 14:00 11/22/20 14:28 Benzonatate 100 Mg Cap PO 100 mg Q8HR BARRY Administration Dextrose 50 ml 11/16/20 12:30 Dextrose 50% In Water (25gm) 50 Ml Syringe IV Q30MIN PRN Hypoglycemia Protocol Famotidine 20 mg 11/19/20 10:00 11/22/20 09:58 Famotidine 20 Mg Tab PO 20 mg DAILY BARRY Administration Gabapentin 300 mg 11/16/20 14:00 11/22/20 14:28 Gabapentin 300 Mg Cap PO 300 mg Q8HR BARRY Administration Heparin Sodium (Porcine) 5,000 unit 11/16/20 14:00 11/22/20 14:29 Heparin 5,000 Unit/1 Ml Vial SUB-Q 5,000 unit Q8HR BARRY Administration Hydralazine HCl 100 mg 11/16/20 14:00 11/22/20 14:28 Hydralazine 100 Mg Tab PO 100 mg Q8HR BARRY Administration Hydralazine HCl 10 mg 11/22/20 12:57 Hydralazine 20 Mg/1 Ml Inj IV Q4HR PRN Blood Pressure Hydromorphone HCl 1 mg 11/22/20 13:01 11/22/20 15:36 Hydromorphone 1 Mg/1 Ml Inj IV 1 mg Q4H PRN Administration Pain , Severe (7-10) Sodium Chloride 250 mls @ 250 mls/hr 11/17/20 10:00 11/22/20 09:59 Nacl 0.9% 250ml IV 250 mls/hr Q12HR BARRY Administration Cefepime HCl 2 gm in 100 mls @ 200 mls/hr 11/20/20 15:00 11/22/20 14:28 Cefepime/Ns 2 Gm/100 Ml IV 200 mls/hr Q24H BARRY Administration Protocol Metronidazole 500 mg in 100 mls @ 100 mls/hr 11/20/20 15:00 11/22/20 14:28 Flagyl 500 Mg/100 Ml IV 100 mls/hr Q8H BARRY Administration Protocol Insulin Human Isoph/Insulin Regular 37 unit 11/18/20 17:00 11/22/20 09:57 Insulin Nph/Regular 70/30 Inj SUB-Q 37 unit BIDDIAB BARRY Administration Insulin Human Lispro 0 unit 11/17/20 18:00 11/22/20 09:57 Insulin Lispro 100 Unit/Ml SUB-Q 3 unit Q4HR BARRY Administration Protocol Linezolid 600 mg 11/20/20 15:00 11/22/20 10:18 Linezolid 600 Mg Tab PO 600 mg Q12HR BARRY Administration Protocol Metoprolol Tartrate 25 mg 11/16/20 22:00 11/22/20 10:00 Metoprolol Tartrate 25 Mg Tab PO 25 mg BID BARRY Administration Ondansetron HCl 4 mg 11/16/20 12:30 Ondansetron 4 Mg/2 Ml Inj IV Q8H PRN Nausea And Vomiting Pravastatin Sodium 20 mg 11/16/20 22:00 11/21/20 23:26 Pravastatin 20 Mg Tab PO 20 mg QHS BARRY Administration Sodium Chloride 10 ml 11/16/20 22:00 11/22/20 10:18 Sodium Chloride 0.9% 10 Ml Flush Syringe IV 10 ml BID BARRY Administration Sodium Chloride 10 ml 11/16/20 12:07 Sodium Chloride 0.9% 10 Ml Flush Syringe IV PRN PRN LINE FLUSH
[2020-11-23] MEDS: PRAVASTATIN 20 MG TAB PO SCH ×2 (00:09→22:14)
[2020-11-23] MEDS: METOPROLOL TARTRATE 25 MG TAB PO SCH ×3 (00:09→22:14)
[2020-11-23] MEDS: hydrALAZINE 100 MG TAB PO SCH ×4 (00:10→22:14)
[2020-11-23] MEDS: GABAPENTIN 300 MG CAP PO SCH ×4 (00:10→22:14)
[2020-11-23] MEDS: HEPARIN 5,000 UNIT/1 ML VIAL SUB-Q SCH ×4 (00:11→22:18)
[2020-11-23] MEDS: metroNIDAZOLE/NS 500 MG/100 ML 500 MG/100 ML BAG IV SCH ×3 (00:16→20:52)
[2020-11-23] MEDS: SODIUM CHLORIDE 0.9% 250ML 250 ML IV SCH ×3 (00:17→22:00)
[2020-11-23] MEDS: INSULIN LISPRO 100 UNIT/ML SUB-Q SCH ×6 (00:18→22:00)
[2020-11-23] MEDS: HYDROmorphone 1 MG/1 ML INJ IV PRN ×4 (00:31→21:05)
[2020-11-23] MEDS: LINEZOLID 600 MG TAB PO SCH ×3 (00:32→22:14)
[2020-11-23] MEDS: BENZONATATE 100 MG CAP PO SCH ×5 (00:32→22:14)
[2020-11-23 05:39] LABS: Hematocrit 26.3 % (35.5-45.6); Hemoglobin 8.4 gm/dl (11.8-15.2); Mean Corpuscular HGB Conc 32 % (32-34); Mean Corpuscular Volume 76 fl (84-94); Platelet Count 520 K/mm3 (140-440); Red Blood Count 3.46 M/mm3 (3.65-5.03); Red Cell Distribution Width 18.3 % (13.2-15.2)
[2020-11-23] MEDS: hydrALAZINE 20 MG/1 ML INJ IV PRN ×3 (05:39→20:58)
[2020-11-23 05:54] LABS: Calcium 8.7 mg/dL (8.4-10.2)
--- NOTE | 2020-11-23 08:49 | Progress Note ---
Assessment and Plan - Patient Problems (1) Acute kidney injury superimposed on CKD Current Visit: Yes Status: Acute Plan to address problem: Acute kidney injury superimposed on stage IV chronic kidney disease. Kidney function continues to improve. Continue to monitor electrolytes and renal function (2) Osteomyelitis of foot, right, acute Current Visit: Yes Status: Acute Plan to address problem: Continue antibiotics (3) Anemia in chronic illness Current Visit: Yes Status: Chronic Plan to address problem: Continue supplements and erythropoiesis stimulating agent as indicated. Follow- up hemoglobin (4) Diabetic foot ulcer with osteomyelitis Current Visit: No Status: Acute Plan to address problem: Blood sugar management by primary attending. Continue antibiotics and local wound care (5) Hypertensive chronic kidney disease with stage 1 through stage 4 chronic kidney disease, or unspecified chronic kidney disease Current Visit: No Status: Acute Plan to address problem: Follow-up blood pressure on current medications. Subjective Date of service: 11/23/20 Principal diagnosis: Right foot cellulitis Interval history: Patient seen lying in bed. He has no new complaints. Still has pain in his right foot. No chest pain, shortness of breath, nausea or vomiting. Objective - Exam Narrative Exam: Obese middle-aged -[place] male lying in bed in no acute distress Extremities: No edema, dressing intact right foot Neuro: Awake, alert no focal deficits - Vital Signs Vital signs: Vital Signs - 12hr 11/23/20 11/23/20 11/23/20 00:06 00:09 05:14 Temperature 97.9 F 98.3 F Pulse Rate 101 H 103 H 95 H Respiratory 18 18 Rate Blood Pressure 165/113 165/113 180/109 O2 Sat by Pulse 97 94 Oximetry 11/23/20 05:39 Temperature Pulse Rate 95 H Respiratory Rate Blood Pressure 181/109 O2 Sat by Pulse Oximetry - Lab 11/23/20 05:01 11/23/20 05:01 Most recent lab results Calcium 8.7 mg/dL (8.4-10.2) 11/23/20 05:01 Magnesium 2.00 mg/dL (1.7-2.3) 11/16/20 10:15 Medications & Allergies - Medications Allergies/Adverse Reactions: Allergies oxycodone [From Percocet] Adverse Reaction (Verified 09/24/20 18:07) Vomiting Home Medications: Home Medications Medication Instructions Recorded Confirmed Last Taken Type Pravastatin [Pravachol] 20 mg PO QHS #30 tablet 04/20/18 11/16/20 Unknown Rx Amlodipine Besylate [Norvasc] 10 mg PO DAILY 12/06/18 11/16/20 Unknown History Gabapentin 300 mg PO Q8HR 12/06/18 11/16/20 Unknown History Albuterol Mdi (or & Nicu Only) 2 puff IH QID PRN #1 inhalation 08/24/20 11/16/20 Unknown Rx [ProAir HFA Inhaler] Benzonatate [Tessalon Perles] 100 mg PO Q8HR #10 capsule 08/24/20 11/16/20 Unknown Rx DAPTOmycin 800 mg IV Q24H vial 09/28/20 11/16/20 Unknown Rx Insulin NPH/Regular [NovoLIN 70/30] 35 unit SUB-Q BIDDIAB #12 ml 09/28/20 11/16/20 Unknown Rx Metoprolol [Lopressor TAB] 25 mg PO BID #60 tablet 09/28/20 11/16/20 Unknown Rx hydrALAZINE [Apresoline TAB] 100 mg PO Q8HR #90 tab 09/28/20 11/16/20 Unknown Rx HYDROcodone/APAP 5-325 [[place]ndara 1 each PO Q6HR PRN #14 tablet 10/13/20 11/16/20 Unknown Rx 5-325 mg TAB] Active Medications: Generic Name Dose Route Start Last Admin Trade Name Freq PRN Reason Stop Dose Admin Acetaminophen 650 mg 11/16/20 12:30 11/20/20 12:14 Acetaminophen 325 Mg Tab PO 650 mg Q6H PRN Administration Pain, Mild (1-3) Hydrocodone Bitart/Acetaminophen 1 each 11/16/20 12:23 11/22/20 11:41 Hydrocodone/Acetaminophen 5-325 Mg Tab PO 1 each Q6HR PRN Administration PAIN Albuterol 2.5 mg 11/16/20 12:30 Albuterol 2.5 Mg/3 Ml Nebu IH Q4HRT PRN Shortness Of Breath Benzonatate 100 mg 11/16/20 14:00 11/23/20 05:16 Benzonatate 100 Mg Cap PO 100 mg Q8HR BARRY Administration Dextrose 50 ml 11/16/20 12:30 Dextrose 50% In Water (25gm) 50 Ml Syringe IV Q30MIN PRN Hypoglycemia Protocol Famotidine 20 mg 11/19/20 10:00 11/22/20 09:58 Famotidine 20 Mg Tab PO 20 mg DAILY BARRY Administration Gabapentin 300 mg 11/16/20 14:00 11/23/20 05:16 Gabapentin 300 Mg Cap PO 300 mg Q8HR BARRY Administration Heparin Sodium (Porcine) 5,000 unit 11/16/20 14:00 11/23/20 05:16 Heparin 5,000 Unit/1 Ml Vial SUB-Q 5,000 unit Q8HR BARRY Administration Hydralazine HCl 100 mg 11/16/20 14:00 11/23/20 05:16 Hydralazine 100 Mg Tab PO 100 mg Q8HR BARRY Administration Hydralazine HCl 10 mg 11/22/20 12:57 11/23/20 05:39 Hydralazine 20 Mg/1 Ml Inj IV 10 mg Q4HR PRN Administration Blood Pressure Hydromorphone HCl 1 mg 11/22/20 13:01 11/23/20 04:52 Hydromorphone 1 Mg/1 Ml Inj IV 1 mg Q4H PRN Administration Pain , Severe (7-10) Sodium Chloride 250 mls @ 250 mls/hr 11/17/20 10:00 11/23/20 00:17 Nacl 0.9% 250ml IV 250 mls/hr Q12HR BARRY Administration Cefepime HCl 2 gm in 100 mls @ 200 mls/hr 11/20/20 15:00 11/22/20 14:28 Cefepime/Ns 2 Gm/100 Ml IV 200 mls/hr Q24H BARRY Administration Protocol Metronidazole 500 mg in 100 mls @ 100 mls/hr 11/20/20 15:00 11/23/20 07:30 Flagyl 500 Mg/100 Ml IV 100 mls/hr Q8H BARRY Administration Protocol Insulin Human Isoph/Insulin Regular 37 unit 11/18/20 17:00 11/22/20 17:57 Insulin Nph/Regular 70/30 Inj SUB-Q 37 unit BIDDIAB BARRY Administration Insulin Human Lispro 0 unit 11/17/20 18:00 11/23/20 00:18 Insulin Lispro 100 Unit/Ml SUB-Q Not Given Q4HR BARRY Protocol Linezolid 600 mg 11/20/20 15:00 11/23/20 00:32 Linezolid 600 Mg Tab PO 600 mg Q12HR BARRY Administration Protocol Metoprolol Tartrate 25 mg 11/16/20 22:00 11/23/20 00:09 Metoprolol Tartrate 25 Mg Tab PO 25 mg BID BARRY Administration Ondansetron HCl 4 mg 11/16/20 12:30 Ondansetron 4 Mg/2 Ml Inj IV Q8H PRN Nausea And Vomiting Pravastatin Sodium 20 mg 11/16/20 22:00 11/23/20 00:09 Pravastatin 20 Mg Tab PO 20 mg QHS BARRY Administration Sodium Chloride 10 ml 11/16/20 22:00 11/23/20 00:18 Sodium Chloride 0.9% 10 Ml Flush Syringe IV 10 ml BID BARRY Administration Sodium Chloride 10 ml 11/16/20 12:07 Sodium Chloride 0.9% 10 Ml Flush Syringe IV PRN PRN LINE FLUSH
[2020-11-23] MEDS: FAMOTIDINE 20 MG TAB PO SCH (09:02)
[2020-11-23] MEDS: INSULIN NPH/REGULAR 70/30 INJ SUB-Q SCH ×2 (09:04→19:18)
--- NOTE | 2020-11-23 10:17 | XRay Report ---
THORACOLUMBAR SPINE AP AND LATERAL VIEWS INDICATION / CLINICAL INFORMATION: Severe pain. COMPARISON: None available. FINDINGS: BONES/JOINT(S): There is a mild age-indeterminate superior endplate compression fracture of L4 with a bout 20% vertebral body height loss. There is no other vertebral fracture. Mild generalized spondylos is with small anterior and lateral osteophytes. SOFT TISSUES: No significant abnormality. ADDITIONAL FINDINGS: None. Signer Name: Fran Woodall MD Signed: 11/23/2020 10:13 AM Workstation Name: [id number]
--- NOTE | 2020-11-23 10:18 | XRay Report ---
RIGHT HIP 2 VIEWS INDICATION / CLINICAL INFORMATION: Right hip pain. COMPARISON: None available. FINDINGS: BONES/JOINT(S): No acute fracture or subluxation. No focal bone lesions. SOFT TISSUES: No significant abnormality. ADDITIONAL FINDINGS: None. Signer Name: Fran Woodall MD Signed: 11/23/2020 10:13 AM Workstation Name: [id number]
[2020-11-23] MEDS: HYDROcodone/ACETAMINOPHEN 5-325 MG TAB PO PRN (11:19)
--- NOTE | 2020-11-23 12:38 | Progress Note ---
Assessment and Plan Assessment and plan: --Right hip and back pain; Current Visit: Yes Status: Acute Plan to address problem: Pain medications, x-ray lumbar spine and right hip Consider orthopedic surgeon evaluation if any abnormality --Osteomyelitis of foot, right, acute Current Visit: Yes Status: Acute Plan to address problem: s/p partial TMA of the right foot involving the third fourth and fifth toes. Continue postop and wound care, wound VAC per surgery Physical therapy occupational therapy when patient is ready --Febrile illness, T-max 102.9 F Current Visit: Yes Status: Acute Plan to address problem: Afebrile last 24 hours, Follow cultures ID evaluated the patient, adjusted the antibiotics --Sepsis/due to osteomyelitis foot/toes Current Visit: Yes Status: Acute Plan to address problem: Status post TMA second and third right metatarsal on IV antibiotics cefepime ,Flagyl and linezolid Recommended by ID --Acute on CKD progressing to stage IV Current Visit: Yes Status: Acute Plan to address problem: Due to vasomotor nephropathy avoid nephrotoxins, monitor renal function Nephrology following --Peripheral vascular disease Current Visit: Yes Status: Acute Plan to address problem: Vascular following. Patient refusing vascular work-up and recommendations --h/o MRSA cellulitis Current Visit: No Status: Acute Plan to address problem: CBC, CMP, blood culture, wound culture, IV antibiotic therapy, supportive care. Continue IV vancomycin --Metabolic acidosis Current Visit: No Status: Acute Plan to address problem: Secondary to acute on chronic kidney disease Nephrology following --Diabetes mellitus with hyperglycemia Current Visit: No Status: Chronic Plan to address problem: Accu-Chek sliding scale coverage ADA diet Insulin as needed -- HLD (hyperlipidemia) Current Visit: No Status: Chronic Plan to address problem: Lipid panel, statin therapy, supportive care. Low-cholesterol diet, --hypertension Current Visit: No Status: Chronic Plan to address problem: continue antihypertensives Adjust blood pressure medication -- DVT prophylaxis Current Visit: Yes Status: Acute Plan to address problem: Heparin subcu Continue wound care. PT OT when patient is able to tolerate DC planning per case management Plan of care reviewed with the patient and his nurse Brief history 45 YO Male with DM,HTN, HLD, Obesity Hypoventilation Syndrome, CKD, CHF, PAD, Osteomyelitis, Nicotine Dependence presents to ED for evaluation. Pt reports "my foot hurts". Patient states that he has experienced pain in his right lower extremity over the past 1 week with persistently worsening symptoms over the past 2 days. Patient states that his pain is 5/10, constant, worsened with weightbearing, relieved with nonweightbearing. EMS was notified and upon arrival the patient was found to be in distress and subsequently transported to [facility] for further care and evaluation of the aforementioned symptoms. The patient was seen and evaluated in the emergency department. All lab and imaging studies reviewed. The patient was found to have right lower extremity osteomyelitis, right lower extremity cellulitis, sepsis, acute kidney injury, metabolic acidosis, uncontrolled diabetes, as well as accelerated hypertension. Pt admitted to surgical floor and initiated on sepsis protocol. Surgical team consulted in ED, Nephrology team consulted in ED. Pt denies fever, chills, CP, Palpitations, NVD, Trauma, BRBPR, recent ill contacts, or known exposure to COVID-19. Prior admission on 09/22/2020 reviewed. All medication listed at time of admission has been reconciled. 11/20/2020; patient is febrile T-max 102 F, patient is on empiric antibiotics, del valle culture sent, ID consulted For choice and duration of antibiotics., Will request PT and patient is able to tolerate physical therapy per surgeon 11/21/2020; patient feels slightly better continues to have severe pain, asking f or more pain medications Vital signs reviewed, wound VAC applied to the right foot surgical wound. 11/22/2020; patient complains of some right hip pain and low back pain No history of fall, patient gives history of back surgery Will check x-ray hip and back 11/23/2020; hip x-ray no acute abnormality, lumbosacral spine x-ray all changes Patient need to follow-up with orthopedic surgeon upon discharge Continue antibiotics, wound care, follow surgery recommendations History Interval history: I have seen and examined the patient at the bedside Patient's chart reviewed No new events reported by the nursing Patient complains of pain Vital signs noted Hospitalist Physical - Constitutional Vitals: Temp Pulse Resp BP Pulse Ox 99.0 F 104 H 18 157/93 93 11/23/20 10:57 11/23/20 10:57 11/23/20 10:57 11/23/20 10:57 11/23/20 10:57 General appearance: Present: no acute distress, well-nourished - EENT Eyes: Present: PERRL, EOM intact - Neck Neck: Present: supple, normal ROM - Respiratory Respiratory effort: normal Respiratory: bilateral: diminished, negative: rales, rhonchi, wheezing - Cardiovascular Rhythm: regular Heart Sounds: Present: S1 & S2 - Extremities Extremities: no ischemia, No edema, abnormal (Second and third toe amputation dressing in place wound with wound VAC) - Abdominal General gastrointestinal: soft, non-tender, non-distended, normal bowel sounds - Integumentary Integumentary: Present: clear, warm - Psychiatric Psychiatric: appropriate mood/affect, cooperative - Neurologic Neurologic: moves all extremities Results - Labs CBC & Chem 7: 11/23/20 05:01 11/23/20 05:01 Labs: Laboratory Last Values WBC 19.0 K/mm3 (4.5-11.0) H 11/23/20 05:01 RBC 3.46 M/mm3 (3.65-5.03) L 11/23/20 05:01 Hgb 8.4 gm/dl (11.8-15.2) L 11/23/20 05:01 Hct 26.3 % (35.5-45.6) L 11/23/20 05:01 MCV 76 fl (84-94) L 11/23/20 05:01 MCH 24 pg (28-32) L 11/23/20 05:01 MCHC 32 % (32-34) 11/23/20 05:01 RDW 18.3 % (13.2-15.2) H 11/23/20 05:01 Plt Count 520 K/mm3 (140-440) H 11/23/20 05:01 Lymph % (Auto) 5.9 % (13.4-35.0) L 11/17/20 05:10 Mcdonald % (Auto) 10.7 % (0.0-7.3) H 11/17/20 05:10 Eos % (Auto) 0.4 % (0.0-4.3) 11/17/20 05:10 Baso % (Auto) 0.2 % (0.0-1.8) 11/17/20 05:10 Lymph # (Auto) 1.1 K/mm3 (1.2-5.4) L 11/17/20 05:10 Mcdonald # (Auto) 2.1 K/mm3 (0.0-0.8) H 11/17/20 05:10 Eos # (Auto) 0.1 K/mm3 (0.0-0.4) 11/17/20 05:10 Baso # (Auto) 0.0 K/mm3 (0.0-0.1) 11/17/20 05:10 Add Manual Diff Complete 11/22/20 05:26 Total Counted 100 11/22/20 05:26 Seg Neutrophils % 82.8 % (40.0-70.0) H 11/17/20 05:10 Seg Neuts % (Manual) 76.0 % (40.0-70.0) H 11/22/20 05:26 Lymphocytes % (Manual) 13.0 % (13.4-35.0) L 11/22/20 05:26 Monocytes % (Manual) 7.0 % (0.0-7.3) 11/22/20 05:26 Eosinophils % (Manual) 2.0 % (0.0-4.3) 11/22/20 05:26 Metamyelocytes % 1.0 % 11/22/20 05:26 Myelocytes % 1.0 % 11/22/20 05:26 Nucleated RBC % Not Reportable 11/22/20 05:26 Seg Neutrophils # 16.1 K/mm3 (1.8-7.7) H 11/17/20 05:10 Seg Neutrophils # Man 16.0 K/mm3 (1.8-7.7) H 11/22/20 05:26 Band Neutrophils # 0.0 K/mm3 11/22/20 05:26 Lymphocytes # (Manual) 2.7 K/mm3 (1.2-5.4) 11/22/20 05:26 Abs React Lymphs (Man) 0.0 K/mm3 11/22/20 05:26 Monocytes # (Manual) 1.5 K/mm3 (0.0-0.8) H 11/22/20 05:26 Eosinophils # (Manual) 0.4 K/mm3 (0.0-0.4) 11/22/20 05:26 Basophils # (Manual) 0.0 K/mm3 (0.0-0.1) 11/22/20 05:26 Metamyelocytes # 0.2 K/mm3 11/22/20 05:26 Myelocytes # 0.2 K/mm3 11/22/20 05:26 Promyelocytes # 0.0 K/mm3 11/22/20 05:26 Blast Cells # 0.0 K/mm3 11/22/20 05:26 WBC Morphology Not Reportable 11/22/20 05:26 Hypersegmented Neuts Not Reportable 11/22/20 05:26 Hyposegmented Neuts Not Reportable 11/22/20 05:26 Hypogranular Neuts Not Reportable 11/22/20 05:26 Smudge Cells Not Reportable 11/22/20 05:26 Toxic Granulation Not Reportable 11/22/20 05:26 Toxic Vacuolation Not Reportable 11/22/20 05:26 Dohle Bodies Not Reportable 11/22/20 05:26 Pelger-Huet Anomaly Not Reportable 11/22/20 05:26 Shayla Rods Not Reportable 11/22/20 05:26 Platelet Estimate Consistent w auto 11/22/20 05:26 Clumped Platelets Not Reportable 11/22/20 05:26 Plt Clumps, EDTA Not Reportable 11/22/20 05:26 Large Platelets Not Reportable 11/22/20 05:26 Giant Platelets Not Reportable 11/22/20 05:26 Platelet Satelliting Not Reportable 11/22/20 05:26 Plt Morphology Comment Not Reportable 11/22/20 05:26 RBC Morphology Not Reportable 11/22/20 05:26 Dimorphic RBCs Not Reportable 11/22/20 05:26 Polychromasia Not Reportable 11/22/20 05:26 Hypochromasia 1+ 11/22/20 05:26 Poikilocytosis Not Reportable 11/22/20 05:26 Anisocytosis Not Reportable 11/22/20 05:26 Microcytosis Not Reportable 11/22/20 05:26 Macrocytosis Not Reportable 11/22/20 05:26 Spherocytes Not Reportable 11/22/20 05:26 Pappenheimer Bodies Not Reportable 11/22/20 05:26 Sickle Cells Not Reportable 11/22/20 05:26 Target Cells Rare 11/22/20 05:26 Tear Drop Cells Not Reportable 11/22/20 05:26 Ovalocytes Not Reportable 11/22/20 05:26 Helmet Cells Not Reportable 11/22/20 05:26 [place] Bodies Not Reportable 11/22/20 05:26 Alva Rings Not Reportable 11/22/20 05:26 Ricky Cells Not Reportable 11/22/20 05:26 Bite Cells Not Reportable 11/22/20 05:26 Crenated Cell Not Reportable 11/22/20 05:26 Elliptocytes Not Reportable 11/22/20 05:26 Acanthocytes (Spur) Not Reportable 11/22/20 05:26 Rouleaux Not Reportable 11/22/20 05:26 Hemoglobin C Crystals Not Reportable 11/22/20 05:26 Schistocytes Not Reportable 11/22/20 05:26 Malaria parasites Not Reportable 11/22/20 05:26 Cristhian Bodies Not Reportable 11/22/20 05:26 Hem Pathologist Commnt No 11/22/20 05:26 PT 15.1 Sec. (12.2-14.9) H 11/16/20 10:15 INR 1.19 (0.87-1.13) H 11/16/20 10:15 APTT 37.0 Sec. (24.2-36.6) H 11/16/20 10:15 VBG pH 7.332 (7.320-7.420) 11/16/20 10:15 Sodium 135 mmol/L (137-145) L 11/23/20 05:01 Potassium 4.1 mmol/L (3.6-5.0) 11/23/20 05:01 Chloride 104.0 mmol/L (98-107) 11/23/20 05:01 Carbon Dioxide 18 mmol/L (22-30) L 11/23/20 05:01 Anion Gap 17 mmol/L 11/23/20 05:01 BUN 24 mg/dL (9-20) H 11/23/20 05:01 Creatinine 3.8 mg/dL (0.8-1.3) H 11/23/20 05:01 Estimated GFR 21 ml/min 11/23/20 05:01 BUN/Creatinine Ratio 6 % 11/23/20 05:01 Glucose 133 mg/dL (75-100) H 11/23/20 05:01 POC Glucose 96 mg/dL (70-105) 11/23/20 11:32 Lactic Acid 1.00 mmol/L (0.7-2.0) 11/17/20 05:10 Calcium 8.7 mg/dL (8.4-10.2) 11/23/20 05:01 Magnesium 2.00 mg/dL (1.7-2.3) 11/16/20 10:15 Total Bilirubin 0.80 mg/dL (0.1-1.2) 11/19/20 05:55 Direct Bilirubin 0.5 mg/dL (0-0.2) H 11/16/20 10:15 Indirect Bilirubin 0.2 mg/dL 11/16/20 10:15 AST 19 units/L (5-40) 11/19/20 05:55 ALT 16 units/L (7-56) 11/19/20 05:55 Alkaline Phosphatase 245 units/L (35-129) H 11/19/20 05:55 Total Creatine Kinase 138 units/L (55-170) 11/16/20 10:15 Total Protein 8.0 g/dL (6.3-8.2) 11/19/20 05:55 Albumin 2.7 g/dL (3.9-5) L 11/19/20 05:55 Albumin/Globulin Ratio 0.5 % 11/19/20 05:55 Vancomycin Trough 9.8 ug/mL (5.0-20.0) 11/18/20 10:10 Random Vancomycin 6.1 ug/mL (0-40.0) 11/21/20 04:45 Microbiology: Microbiology 11/20/20 15:00 Peripheral/Venous Blood Culture - Preliminary NO GROWTH AFTER 48 HOURS 11/20/20 15:00 Peripheral/Venous Blood Culture - Preliminary NO GROWTH AFTER 48 HOURS Elder/IV: Voiding Method Urinal Active Medications - Current Medications Current Medications: Generic Name Dose Route Start Last Admin Trade Name Freq PRN Reason Stop Dose Admin Acetaminophen 650 mg 11/16/20 12:30 11/20/20 12:14 Acetaminophen 325 Mg Tab PO 650 mg Q6H PRN Administration Pain, Mild (1-3) Hydrocodone Bitart/Acetaminophen 1 each 11/16/20 12:23 11/23/20 11:19 Hydrocodone/Acetaminophen 5-325 Mg Tab PO 1 each Q6HR PRN Administration PAIN Albuterol 2.5 mg 11/16/20 12:30 Albuterol 2.5 Mg/3 Ml Nebu IH Q4HRT PRN Shortness Of Breath Benzonatate 100 mg 11/16/20 14:00 11/23/20 05:16 Benzonatate 100 Mg Cap PO 100 mg Q8HR BARRY Administration Dextrose 50 ml 11/16/20 12:30 Dextrose 50% In Water (25gm) 50 Ml Syringe IV Q30MIN PRN Hypoglycemia Protocol Famotidine 20 mg 11/19/20 10:00 11/23/20 09:02 Famotidine 20 Mg Tab PO 20 mg DAILY BARRY Administration Gabapentin 300 mg 11/16/20 14:00 11/23/20 05:16 Gabapentin 300 Mg Cap PO 300 mg Q8HR BARRY Administration Heparin Sodium (Porcine) 5,000 unit 11/16/20 14:00 11/23/20 05:16 Heparin 5,000 Unit/1 Ml Vial SUB-Q 5,000 unit Q8HR BARRY Administration Hydralazine HCl 100 mg 11/16/20 14:00 11/23/20 05:16 Hydralazine 100 Mg Tab PO 100 mg Q8HR BARRY Administration Hydralazine HCl 10 mg 11/22/20 12:57 11/23/20 09:03 Hydralazine 20 Mg/1 Ml Inj IV 10 mg Q4HR PRN Administration Blood Pressure Hydromorphone HCl 1 mg 11/22/20 13:01 11/23/20 09:01 Hydromorphone 1 Mg/1 Ml Inj IV 1 mg Q4H PRN Administration Pain , Severe (7-10) Sodium Chloride 250 mls @ 250 mls/hr 11/17/20 10:00 11/23/20 09:02 Nacl 0.9% 250ml IV 250 mls/hr Q12HR BARRY Administration Cefepime HCl 2 gm in 100 mls @ 200 mls/hr 11/20/20 15:00 11/22/20 14:28 Cefepime/Ns 2 Gm/100 Ml IV 200 mls/hr Q24H BARRY Administration Protocol Metronidazole 500 mg in 100 mls @ 100 mls/hr 11/20/20 15:00 11/23/20 07:30 Flagyl 500 Mg/100 Ml IV 100 mls/hr Q8H BARRY Administration Protocol Insulin Human Isoph/Insulin Regular 37 unit 11/18/20 17:00 11/23/20 09:04 Insulin Nph/Regular 70/30 Inj SUB-Q 37 unit BIDDIAB BARRY Administration Insulin Human Lispro 0 unit 11/17/20 18:00 11/23/20 09:04 Insulin Lispro 100 Unit/Ml SUB-Q Not Given Q4HR [facility] Protocol Linezolid 600 mg 11/20/20 15:00 11/23/20 09:03 Linezolid 600 Mg Tab PO 600 mg Q12HR BARRY Administration Protocol Metoprolol Tartrate 25 mg 11/16/20 22:00 11/23/20 09:02 Metoprolol Tartrate 25 Mg Tab PO 25 mg BID BARRY Administration Ondansetron HCl 4 mg 11/16/20 12:30 Ondansetron 4 Mg/2 Ml Inj IV Q8H PRN Nausea And Vomiting Pravastatin Sodium 20 mg 11/16/20 22:00 11/23/20 00:09 Pravastatin 20 Mg Tab PO 20 mg QHS BARRY Administration Sodium Chloride 10 ml 11/16/20 22:00 11/23/20 09:05 Sodium Chloride 0.9% 10 Ml Flush Syringe IV 10 ml BID BARRY Administration Sodium Chloride 10 ml 11/16/20 12:07 Sodium Chloride 0.9% 10 Ml Flush Syringe IV PRN PRN LINE FLUSH
[2020-11-23] MEDS: CEFEPIME/NS 2 GM/100 ML 2 GM/100 ML BAG IV SCH (15:04)
--- NOTE | 2020-11-23 16:13 | Progress Note ---
Assessment and Plan Cultures: 11/16/2020 blood culture: Group B streptococcus 11/16/2020 urine culture: No growth 11/20/2020 blood culture: no growth thus far A/P: 45 year old male with history of uncontrolled diabetes mellitus, hyperlipidemia, hypertension, chronic kidney disease, obesity, peripheral vascular disease, with multiple infectious complications especially his right foot in the recent past, now readmitted with: #Sepsis secondary to right foot infection #Group B strep bacteremia: Secondary to right foot infection #Worsening right diabetic foot infection with osteomyelitis: 3rd, 4th and 5th toe TMA on 10/10/2020, now again TMA of the right second toe amputation of the distal half of the third metatarsal shaft on 11/19/2020. Previously has grown MRSA and Pseudomonas from the R foot and was treated with IV abx. #Uncontrolled diabetes mellitus #Advanced CKD: has been refusing hemodialysis. Nephrology following. #Peripheral vascular disease: Seen by vascular, declining angiogram. Recs: -continue renally dosed IV Cefepime and PO Linezolid while inpatient -Flagyl discontinued -OPAT orders placed for IV Cefepime + Daptomycin x 4 weeks ending 12/18/2020 via home health -overall poor prognosis given his non compliance and lack of insight with regards to the disease process Lynn Pagan MD, FACP [facility] ([facility] O: [phone] F: [phone] Subjective Date of service: 11/23/20 Principal diagnosis: Right foot cellulitis Interval history: No fever. Sleepy but keeps asking for pain meds. Objective - Exam Narrative Exam: Physical Exam: Constitutional: Awake. No acute distress Head, Ears, Nose: Normocephalic, atraumatic. External ears, nose normal Eyes: Conjunctivae/corneas clear. No icterus. No ptosis. Neck: Supple, no meningeal signs Cardiovascular: S1, S2 normal. Respiratory: Good air entry, clear to auscultation bilaterally GI: Soft, non-tender; bowel sounds normal. No peritoneal signs Musculoskeletal: R foot VAC + Skin: No rash or abscess Hem/Lymphatic: No palpable cervical or supraclavicular nodes. No lymphangitis Psych: flat affect Neurological: awake, no gross abnormality - Constitutional Vitals: Vital Signs Temp Pulse Resp BP Pulse Ox 99.0 F 104 H 18 157/93 93 02/12/21 10:57 11/23/20 10:57 11/23/20 10:57 11/23/20 10:57 11/23/20 10:57 Temperature -Last 24 Hours Temperature 99.0 F Temperature 98.0 F Temperature 98.3 F Temperature 97.9 F Temperature 98.4 F - Labs CBC & Chem 7: 11/23/20 05:01 11/23/20 05:01 Labs: Abnormal lab results 11/22/20 11/22/20 11/23/20 Range/Units 11:52 16:11 05:01 WBC 19.0 H (4.5-11.0) K/mm3 RBC 3.46 L (3.65-5.03) M/mm3 Hgb 8.4 L (11.8-15.2) gm/dl Hct 26.3 L (35.5-45.6) % MCV 76 L (84-94) fl MCH 24 L (28-32) pg RDW 18.3 H (13.2-15.2) % Plt Count 520 H (140-440) K/mm3 Sodium (137-145) mmol/L Carbon Dioxide (22-30) mmol/L BUN (9-20) mg/dL Creatinine (0.8-1.3) mg/dL Glucose (75-100) mg/dL POC Glucose 139 H 125 H (70-105) mg/dL 11/23/20 11/23/20 Range/Units 05:01 07:32 WBC (4.5-11.0) K/mm3 RBC (3.65-5.03) M/mm3 Hgb (11.8-15.2) gm/dl Hct (35.5-45.6) % MCV (84-94) fl MCH (28-32) pg RDW (13.2-15.2) % Plt Count (140-440) K/mm3 Sodium 135 L (137-145) mmol/L Carbon Dioxide 18 L (22-30) mmol/L BUN 24 H (9-20) mg/dL Creatinine 3.8 H (0.8-1.3) mg/dL Glucose 133 H (75-100) mg/dL POC Glucose 143 H (70-105) mg/dL
[2020-11-24] MEDS: INSULIN LISPRO 100 UNIT/ML SUB-Q SCH ×5 (02:00→22:00)
[2020-11-24] MEDS: HYDROmorphone 1 MG/1 ML INJ IV PRN ×3 (04:00→21:49)
[2020-11-24] MEDS: hydrALAZINE 20 MG/1 ML INJ IV PRN ×2 (04:00→08:50)
--- NOTE | 2020-11-24 10:16 | Progress Note ---
Assessment and Plan - Patient Problems (1) Acute kidney injury superimposed on CKD Current Visit: Yes Status: Acute Plan to address problem: Acute kidney injury superimposed on stage IV chronic kidney disease. Kidney function continues to improve. Labs not done this morning. Continue to monitor electrolytes and renal function (2) Osteomyelitis of foot, right, acute Current Visit: Yes Status: Acute Plan to address problem: Continue antibiotics appropriately adjusted to the degree of renal function. Infectious disease arranging for outpatient antibiotics (3) Anemia in chronic illness Current Visit: Yes Status: Chronic Plan to address problem: Continue supplements and erythropoiesis stimulating agent as indicated. Follow- up hemoglobin (4) Diabetic foot ulcer with osteomyelitis Current Visit: No Status: Acute Plan to address problem: Blood sugar management by primary attending. Continue antibiotics and local wound care (5) Hypertensive chronic kidney disease with stage 1 through stage 4 chronic kidney disease, or unspecified chronic kidney disease Current Visit: No Status: Acute Plan to address problem: Follow-up blood pressure on current medications. Subjective Date of service: 11/24/20 Principal diagnosis: Right foot cellulitis Interval history: Patient seen lying in bed. He has no new complaints. Still has pain in his right foot. No chest pain, shortness of breath, nausea or vomiting. Objective - Exam Narrative Exam: Obese middle-aged -[place] male lying in bed in no acute distress HEENT: NCAT, Neck: Supple, no venous distention CVS: S1S2 RRR with no murmur, rub or gallop Chest: Clear to auscultation Abdomen: Protuberant, soft, nontender, no organomegaly, bowel sounds are present Extremities: No edema, dressing intact right foot Neuro: Awake, alert no focal deficits - Vital Signs Vital signs: Vital Signs - 12hr 11/23/20 11/24/20 11/24/20 23:44 03:45 04:00 Temperature 98.4 F 98.3 F Pulse Rate 99 H 93 H 104 H Respiratory 18 18 20 Rate Blood Pressure 153/98 184/117 183/107 O2 Sat by Pulse 97 97 Oximetry 11/24/20 11/24/20 04:30 07:00 Temperature 98.0 F Pulse Rate 95 H Respiratory 20 20 Rate Blood Pressure 186/111 O2 Sat by Pulse 94 Oximetry - Lab 11/23/20 05:01 11/23/20 05:01 Most recent lab results Calcium 8.7 mg/dL (8.4-10.2) 02/12/21 05:01 Magnesium 2.00 mg/dL (1.7-2.3) 11/16/20 10:15 Medications & Allergies - Medications Allergies/Adverse Reactions: Allergies oxycodone [From Percocet] Adverse Reaction (Verified 09/24/20 18:07) Vomiting Home Medications: Home Medications Medication Instructions Recorded Confirmed Last Taken Type Pravastatin [Pravachol] 20 mg PO QHS #30 tablet 04/20/18 11/16/20 Unknown Rx Amlodipine Besylate [Norvasc] 10 mg PO DAILY 12/06/18 11/16/20 Unknown History Gabapentin 300 mg PO Q8HR 12/06/18 11/16/20 Unknown History Albuterol Mdi (or & Nicu Only) 2 puff IH QID PRN #1 inhalation 08/24/20 11/16/20 Unknown Rx [ProAir HFA Inhaler] Benzonatate [Tessalon Perles] 100 mg PO Q8HR #10 capsule 08/24/20 11/16/20 Unknown Rx DAPTOmycin 800 mg IV Q24H vial 09/28/20 11/16/20 Unknown Rx Insulin NPH/Regular [NovoLIN 70/30] 35 unit SUB-Q BIDDIAB #12 ml 09/28/20 11/16/20 Unknown Rx Metoprolol [Lopressor TAB] 25 mg PO BID #60 tablet 09/28/20 11/16/20 Unknown Rx hydrALAZINE [Apresoline TAB] 100 mg PO Q8HR #90 tab 09/28/20 11/16/20 Unknown Rx HYDROcodone/APAP 5-325 [Phelps 1 each PO Q6HR PRN #14 tablet 10/13/20 11/16/20 Unknown Rx 5-325 mg TAB] Active Medications: Generic Name Dose Route Start Last Admin Trade Name Freq PRN Reason Stop Dose Admin Acetaminophen 650 mg 11/16/20 12:30 11/20/20 12:14 Acetaminophen 325 Mg Tab PO 650 mg Q6H PRN Administration Pain, Mild (1-3) Hydrocodone Bitart/Acetaminophen 1 each 11/16/20 12:23 11/23/20 11:19 Hydrocodone/Acetaminophen 5-325 Mg Tab PO 1 each Q6HR PRN Administration PAIN Albuterol 2.5 mg 11/16/20 12:30 Albuterol 2.5 Mg/3 Ml Nebu IH Q4HRT PRN Shortness Of Breath Benzonatate 100 mg 11/16/20 14:00 11/23/20 22:14 Benzonatate 100 Mg Cap PO 100 mg Q8HR BARRY Administration Dextrose 50 ml 11/16/20 12:30 Dextrose 50% In Water (25gm) 50 Ml Syringe IV Q30MIN PRN Hypoglycemia Protocol Famotidine 20 mg 11/19/20 10:00 11/23/20 09:02 Famotidine 20 Mg Tab PO 20 mg DAILY BARRY Administration Gabapentin 300 mg 11/16/20 14:00 11/23/20 22:14 Gabapentin 300 Mg Cap PO 300 mg Q8HR BARRY Administration Heparin Sodium (Porcine) 5,000 unit 11/16/20 14:00 11/23/20 22:18 Heparin 5,000 Unit/1 Ml Vial SUB-Q 5,000 unit Q8HR BARRY Administration Hydralazine HCl 100 mg 11/16/20 14:00 11/23/20 22:14 Hydralazine 100 Mg Tab PO 100 mg Q8HR BARRY Administration Hydralazine HCl 10 mg 11/22/20 12:57 11/24/20 04:00 Hydralazine 20 Mg/1 Ml Inj IV 10 mg Q4HR PRN Administration Blood Pressure Hydromorphone HCl 1 mg 11/22/20 13:01 11/24/20 04:00 Hydromorphone 1 Mg/1 Ml Inj IV 1 mg Q4H PRN Administration Pain , Severe (7-10) Sodium Chloride 250 mls @ 250 mls/hr 11/17/20 10:00 11/23/20 22:00 Nacl 0.9% 250ml IV 250 mls/hr Q12HR BARRY Administration Cefepime HCl 2 gm in 100 mls @ 200 mls/hr 11/20/20 15:00 11/23/20 15:04 Cefepime/Ns 2 Gm/100 Ml IV 200 mls/hr Q24H BARRY Administration Protocol Insulin Human Isoph/Insulin Regular 37 unit 11/18/20 17:00 11/23/20 19:18 Insulin Nph/Regular 70/30 Inj SUB-Q Not Given BIDDIAB BARRY Insulin Human Lispro 0 unit 11/17/20 18:00 11/24/20 02:00 Insulin Lispro 100 Unit/Ml SUB-Q Not Given Q4HR BARRY Protocol Linezolid 600 mg 11/20/20 15:00 11/23/20 22:14 Linezolid 600 Mg Tab PO 600 mg Q12HR BARRY Administration Protocol Metoprolol Tartrate 25 mg 11/16/20 22:00 11/23/20 22:14 Metoprolol Tartrate 25 Mg Tab PO 25 mg BID BARRY Administration Ondansetron HCl 4 mg 11/16/20 12:30 Ondansetron 4 Mg/2 Ml Inj IV Q8H PRN Nausea And Vomiting Pravastatin Sodium 20 mg 11/16/20 22:00 11/23/20 22:14 Pravastatin 20 Mg Tab PO 20 mg QHS BARRY Administration Sodium Chloride 10 ml 11/16/20 22:00 11/23/20 22:00 Sodium Chloride 0.9% 10 Ml Flush Syringe IV 10 ml BID BARRY Administration Sodium Chloride 10 ml 11/16/20 12:07 Sodium Chloride 0.9% 10 Ml Flush Syringe IV PRN PRN LINE FLUSH
[2020-11-24] MEDS: INSULIN NPH/REGULAR 70/30 INJ SUB-Q SCH ×2 (10:40→18:01)
[2020-11-24] MEDS: FAMOTIDINE 20 MG TAB PO SCH (10:51)
[2020-11-24] MEDS: METOPROLOL TARTRATE 25 MG TAB PO SCH ×2 (10:51→21:57)
[2020-11-24] MEDS: LINEZOLID 600 MG TAB PO SCH ×2 (10:51→21:56)
--- NOTE | 2020-11-24 12:19 | Progress Note ---
Assessment and Plan Assessment and plan: --Right hip and back pain; Current Visit: Yes Status: Acute Plan to address problem: Pain medications, x-ray lumbar spine and right hip Consider orthopedic surgeon evaluation if any abnormality --Osteomyelitis of foot, right, acute Current Visit: Yes Status: Acute Plan to address problem: s/p partial TMA of the right foot involving the third fourth and fifth toes. Continue postop and wound care, wound VAC per surgery Physical therapy occupational therapy when patient is ready --Febrile illness, T-max 102.9 F Current Visit: Yes Status: Acute Plan to address problem: Afebrile last 24 hours, Follow cultures ID evaluated the patient, adjusted the antibiotics --Sepsis/due to osteomyelitis foot/toes Current Visit: Yes Status: Acute Plan to address problem: Status post TMA second and third right metatarsal on IV antibiotics cefepime, Flagyl and linezolid ID DC'd Flagyl advised to continue cefepime and linezolid while in hospital At discharge IV cefepime plus daptomycin for 4 weeks ending 12/18/2020 Case management to assist with home health, and home antibiotics Patient does not have clear understanding of the seriousness of osteomyelitis and long-term antibiotics Strongly advised to comply with medications. Outpatient antibiotic therapy OPAT orders placed for IV Cefepime + Daptomycin x 4 weeks ending 12/18/2020 via home health Overall poor prognosis given his non compliance and lack of insight with regards to the disease process --Acute on CKD progressing to stage IV Current Visit: Yes Status: Acute Plan to address problem: Due to vasomotor nephropathy avoid nephrotoxins, medications are renally dosed --Peripheral vascular disease Current Visit: Yes Status: Acute Plan to address problem: Vascular following. Patient refusing vascular work-up and recommendations --h/o MRSA cellulitis Current Visit: No Status: Acute Plan to address problem: CBC, CMP, blood culture, wound culture, IV antibiotic therapy, supportive care. Continue linezolid --Metabolic acidosis Current Visit: No Status: Acute Plan to address problem: Secondary to acute on chronic kidney disease Nephrology following --Diabetes mellitus with hyperglycemia Current Visit: No Status: Chronic Plan to address problem: Accu-Chek sliding scale coverage ADA diet Insulin as needed -- HLD (hyperlipidemia) Current Visit: No Status: Chronic Plan to address problem: Lipid panel, statin therapy, supportive care. Low-cholesterol diet, --hypertension Current Visit: No Status: Chronic Plan to address problem: continue antihypertensives Adjust blood pressure medication -- DVT prophylaxis Current Visit: Yes Status: Acute Plan to address problem: Heparin subcu Continue wound care. PT OT when patient is able to tolerate DC planning per case management ID recommended long-term antibiotics for total of 4 weeks Requested midline placement, discharge when cleared by surgery Plan of care reviewed with the patient and his nurse Brief history 45 YO Male with DM,HTN, HLD, Obesity Hypoventilation Syndrome, CKD, CHF, PAD, Osteomyelitis, Nicotine Dependence presents to ED for evaluation. Pt reports "my foot hurts". Patient states that he has experienced pain in his right lower extremity over the past 1 week with persistently worsening symptoms over the past 2 days. Patient states that his pain is 5/10, constant, worsened with we ightbearing, relieved with nonweightbearing. EMS was notified and upon arrival the patient was found to be in distress and subsequently transported to [facility] for further care and evaluation of the aforementioned symptoms. The patient was seen and evaluated in the emergency department. All lab and imaging studies reviewed. The patient was found to have right lower extremity osteomyelitis, right lower extremity cellulitis, sepsis, acute kidney injury, metabolic acidosis, uncontrolled diabetes, as well as accelerated hypertension. Pt admitted to surgical floor and initiated on sepsis protocol. Surgical team consulted in ED, Nephrology team consulted in ED. Pt denies fever, chills, CP, Palpitations, NVD, Trauma, BRBPR, recent ill contacts, or known exposure to COVID-19. Prior admission on 09/22/2020 reviewed. All medication listed at time of admission has been reconciled. 11/20/2020; patient is febrile T-max 102 F, patient is on empiric antibiotics, del valle culture sent, ID consulted For choice and duration of antibiotics., Will request PT and patient is able to tolerate physical therapy per surgeon 11/21/2020; patient feels slightly better continues to have severe pain, asking for more pain medications Vital signs reviewed, wound VAC applied to the right foot surgical wound. 11/22/2020; patient complains of some right hip pain and low back pain No history of fall, patient gives history of back surgery Will check x-ray hip and back 11/23/2020; hip x-ray no acute abnormality, lumbosacral spine x-ray all changes Patient need to follow-up with orthopedic surgeon upon discharge Continue antibiotics, wound care, follow surgery recommendations 11/24/2020; patient is sleeping, nurse reports that patient complains of pain On pain medications, antibiotics, surgery and ID following ID recommend long-term anticoagulation total for 4 weeks ending on 12/18/2020 History Interval history: I have seen and examined the patient at the bedside Patient's chart and medications reviewed Patient is sleeping Nurses no new complaints Vital signs noted Hospitalist Physical - Constitutional Vitals: Temp Pulse Resp BP Pulse Ox 98.4 F 113 H 18 158/91 100 11/24/20 11:34 11/24/20 11:34 11/24/20 11:34 11/24/20 11:34 11/24/20 11:34 General appearance: Present: no acute distress, well-nourished, obese Results - Labs CBC & Chem 7: 11/23/20 05:01 11/23/20 05:01 Labs: Laboratory Last Values WBC 19.0 K/mm3 (4.5-11.0) H 11/23/20 05:01 RBC 3.46 M/mm3 (3.65-5.03) L 11/23/20 05:01 Hgb 8.4 gm/dl (11.8-15.2) L 11/23/20 05:01 Hct 26.3 % (35.5-45.6) L 11/23/20 05:01 MCV 76 fl (84-94) L 11/23/20 05:01 MCH 24 pg (28-32) L 11/23/20 05:01 MCHC 32 % (32-34) 11/23/20 05:01 RDW 18.3 % (13.2-15.2) H 11/23/20 05:01 Plt Count 520 K/mm3 (140-440) H 11/23/20 05:01 Lymph % (Auto) 5.9 % (13.4-35.0) L 11/17/20 05:10 [place] % (Auto) 10.7 % (0.0-7.3) H 11/17/20 05:10 Eos % (Auto) 0.4 % (0.0-4.3) 11/17/20 05:10 Baso % (Auto) 0.2 % (0.0-1.8) 11/17/20 05:10 Lymph # (Auto) 1.1 K/mm3 (1.2-5.4) L 11/17/20 05:10 [place] # (Auto) 2.1 K/mm3 (0.0-0.8) H 11/17/20 05:10 Eos # (Auto) 0.1 K/mm3 (0.0-0.4) 11/17/20 05:10 Baso # (Auto) 0.0 K/mm3 (0.0-0.1) 11/17/20 05:10 Add Manual Diff Complete 11/22/20 05:26 Total Counted 100 11/22/20 05:26 Seg Neutrophils % 82.8 % (40.0-70.0) H 11/17/20 05:10 Seg Neuts % (Manual) 76.0 % (40.0-70.0) H 11/22/20 05:26 Lymphocytes % (Manual) 13.0 % (13.4-35.0) L 11/22/20 05:26 Monocytes % (Manual) 7.0 % (0.0-7.3) 11/22/20 05:26 Eosinophils % (Manual) 2.0 % (0.0-4.3) 11/22/20 05:26 Metamyelocytes % 1.0 % 11/22/20 05:26 Myelocytes % 1.0 % 11/22/20 05:26 Nucleated RBC % Not Reportable 11/22/20 05:26 Seg Neutrophils # 16.1 K/mm3 (1.8-7.7) H 11/17/20 05:10 Seg Neutrophils # Man 16.0 K/mm3 (1.8-7.7) H 11/22/20 05:26 Band Neutrophils # 0.0 K/mm3 11/22/20 05:26 Lymphocytes # (Manual) 2.7 K/mm3 (1.2-5.4) 11/22/20 05:26 Abs React Lymphs (Man) 0.0 K/mm3 11/22/20 05:26 Monocytes # (Manual) 1.5 K/mm3 (0.0-0.8) H 11/22/20 05:26 Eosinophils # (Manual) 0.4 K/mm3 (0.0-0.4) 11/22/20 05:26 Basophils # (Manual) 0.0 K/mm3 (0.0-0.1) 11/22/20 05:26 Metamyelocytes # 0.2 K/mm3 11/22/20 05:26 Myelocytes # 0.2 K/mm3 11/22/20 05:26 Promyelocytes # 0.0 K/mm3 11/22/20 05:26 Blast Cells # 0.0 K/mm3 11/22/20 05:26 WBC Morphology Not Reportable 11/22/20 05:26 Hypersegmented Neuts Not Reportable 11/22/20 05:26 Hyposegmented Neuts Not Reportable 11/22/20 05:26 Hypogranular Neuts Not Reportable 11/22/20 05:26 Smudge Cells Not Reportable 11/22/20 05:26 Toxic Granulation Not Reportable 11/22/20 05:26 Toxic Vacuolation Not Reportable 11/22/20 05:26 Dohle Bodies Not Reportable 11/22/20 05:26 Pelger-Huet Anomaly Not Reportable 11/22/20 05:26 Shayla Rods Not Reportable 11/22/20 05:26 Platelet Estimate Consistent w auto 11/22/20 05:26 Clumped Platelets Not Reportable 11/22/20 05:26 Plt Clumps, EDTA Not Reportable 11/22/20 05:26 Large Platelets Not Reportable 11/22/20 05:26 Giant Platelets Not Reportable 11/22/20 05:26 Platelet Satelliting Not Reportable 11/22/20 05:26 Plt Morphology Comment Not Reportable 11/22/20 05:26 RBC Morphology Not Reportable 11/22/20 05:26 Dimorphic RBCs Not Reportable 11/22/20 05:26 Polychromasia Not Reportable 11/22/20 05:26 Hypochromasia 1+ 11/22/20 05:26 Poikilocytosis Not Reportable 11/22/20 05:26 Anisocytosis Not Reportable 11/22/20 05:26 Microcytosis Not Reportable 11/22/20 05:26 Macrocytosis Not Reportable 11/22/20 05:26 Spherocytes Not Reportable 11/22/20 05:26 Pappenheimer Bodies Not Reportable 11/22/20 05:26 Sickle Cells Not Reportable 11/22/20 05:26 Target Cells Rare 11/22/20 05:26 Tear Drop Cells Not Reportable 11/22/20 05:26 Ovalocytes Not Reportable 11/22/20 05:26 Helmet Cells Not Reportable 11/22/20 05:26 [place] Bodies Not Reportable 11/22/20 05:26 [place] Rings Not Reportable 11/22/20 05:26 Ricky Cells Not Reportable 11/22/20 05:26 Bite Cells Not Reportable 11/22/20 05:26 Crenated Cell Not Reportable 11/22/20 05:26 Elliptocytes Not Reportable 11/22/20 05:26 Acanthocytes (Spur) Not Reportable 11/22/20 05:26 Rouleaux Not Reportable 11/22/20 05:26 Hemoglobin C Crystals Not Reportable 11/22/20 05:26 Schistocytes Not Reportable 11/22/20 05:26 Malaria parasites Not Reportable 11/22/20 05:26 Cristhian Bodies Not Reportable 11/22/20 05:26 Hem Pathologist Commnt No 11/22/20 05:26 PT 15.1 Sec. (12.2-14.9) H 11/16/20 10:15 INR 1.19 (0.87-1.13) H 11/16/20 10:15 APTT 37.0 Sec. (24.2-36.6) H 11/16/20 10:15 VBG pH 7.332 (7.320-7.420) 11/16/20 10:15 Sodium 135 mmol/L (137-145) L 11/23/20 05:01 Potassium 4.1 mmol/L (3.6-5.0) 11/23/20 05:01 Chloride 104.0 mmol/L (98-107) 11/23/20 05:01 Carbon Dioxide 18 mmol/L (22-30) L 11/23/20 05:01 Anion Gap 17 mmol/L 11/23/20 05:01 BUN 24 mg/dL (9-20) H 11/23/20 05:01 Creatinine 3.8 mg/dL (0.8-1.3) H 11/23/20 05:01 Estimated GFR 21 ml/min 11/23/20 05:01 BUN/Creatinine Ratio 6 % 11/23/20 05:01 Glucose 133 mg/dL (75-100) H 11/23/20 05:01 POC Glucose 195 mg/dL (70-105) H 11/24/20 11:34 Lactic Acid 1.00 mmol/L (0.7-2.0) 11/17/20 05:10 Calcium 8.7 mg/dL (8.4-10.2) 11/23/20 05:01 Magnesium 2.00 mg/dL (1.7-2.3) 11/16/20 10:15 Total Bilirubin 0.80 mg/dL (0.1-1.2) 11/19/20 05:55 Direct Bilirubin 0.5 mg/dL (0-0.2) H 11/16/20 10:15 Indirect Bilirubin 0.2 mg/dL 11/16/20 10:15 AST 19 units/L (5-40) 11/19/20 05:55 ALT 16 units/L (7-56) 11/19/20 05:55 Alkaline Phosphatase 245 units/L (35-129) H 11/19/20 05:55 Total Creatine Kinase 138 units/L (55-170) 11/16/20 10:15 Total Protein 8.0 g/dL (6.3-8.2) 11/19/20 05:55 Albumin 2.7 g/dL (3.9-5) L 11/19/20 05:55 Albumin/Globulin Ratio 0.5 % 11/19/20 05:55 Vancomycin Trough 9.8 ug/mL (5.0-20.0) 11/18/20 10:10 Random Vancomycin 6.1 ug/mL (0-40.0) 11/21/20 04:45 Microbiology: Microbiology 11/20/20 15:00 Peripheral/Venous Blood Culture - Preliminary NO GROWTH AFTER 72 HOURS 11/20/20 15:00 Peripheral/Venous Blood Culture - Preliminary NO GROWTH AFTER 72 HOURS Elder/IV: Voiding Method Urinal Active Medications - Current Medications Current Medications: Generic Name Dose Route Start Last Admin Trade Name Freq PRN Reason Stop Dose Admin Acetaminophen 650 mg 11/16/20 12:30 11/20/20 12:14 Acetaminophen 325 Mg Tab PO 650 mg Q6H PRN Administration Pain, Mild (1-3) Hydrocodone Bitart/Acetaminophen 1 each 11/16/20 12:23 11/23/20 11:19 Hydrocodone/Acetaminophen 5-325 Mg Tab PO 1 each Q6HR PRN Administration PAIN Albuterol 2.5 mg 11/16/20 12:30 Albuterol 2.5 Mg/3 Ml Nebu IH Q4HRT PRN Shortness Of Breath Benzonatate 100 mg 11/16/20 14:00 11/23/20 22:14 Benzonatate 100 Mg Cap PO 100 mg Q8HR BARRY Administration Dextrose 50 ml 11/16/20 12:30 Dextrose 50% In Water (25gm) 50 Ml Syringe IV Q30MIN PRN Hypoglycemia Protocol Famotidine 20 mg 11/19/20 10:00 11/24/20 10:51 Famotidine 20 Mg Tab PO 20 mg DAILY BARRY Administration Gabapentin 300 mg 11/16/20 14:00 11/23/20 22:14 Gabapentin 300 Mg Cap PO 300 mg Q8HR BARRY Administration Heparin Sodium (Porcine) 5,000 unit 11/16/20 14:00 11/23/20 22:18 Heparin 5,000 Unit/1 Ml Vial SUB-Q 5,000 unit Q8HR BARRY Administration Hydralazine HCl 100 mg 11/16/20 14:00 11/23/20 22:14 Hydralazine 100 Mg Tab PO 100 mg Q8HR BARRY Administration Hydralazine HCl 10 mg 11/22/20 12:57 11/24/20 08:50 Hydralazine 20 Mg/1 Ml Inj IV 10 mg Q4HR PRN Administration Blood Pressure Hydromorphone HCl 1 mg 11/22/20 13:01 11/24/20 10:39 Hydromorphone 1 Mg/1 Ml Inj IV 1 mg Q4H PRN Administration Pain , Severe (7-10) Sodium Chloride 250 mls @ 250 mls/hr 11/17/20 10:00 11/23/20 22:00 Nacl 0.9% 250ml IV 250 mls/hr Q12HR BARRY Administration Cefepime HCl 2 gm in 100 mls @ 200 mls/hr 11/20/20 15:00 11/23/20 15:04 Cefepime/Ns 2 Gm/100 Ml IV 200 mls/hr Q24H BARRY Administration Protocol Insulin Human Isoph/Insulin Regular 37 unit 11/18/20 17:00 11/24/20 10:40 Insulin Nph/Regular 70/30 Inj SUB-Q 37 unit BIDDIAB BARRY Administration Insulin Human Lispro 0 unit 11/17/20 18:00 11/24/20 02:00 Insulin Lispro 100 Unit/Ml SUB-Q Not Given Q4HR [facility] Protocol Linezolid 600 mg 11/20/20 15:00 11/24/20 10:51 Linezolid 600 Mg Tab PO 600 mg Q12HR BARRY Administration Protocol Metoprolol Tartrate 25 mg 11/16/20 22:00 11/24/20 10:51 Metoprolol Tartrate 25 Mg Tab PO 25 mg BID BARRY Administration Ondansetron HCl 4 mg 11/16/20 12:30 Ondansetron 4 Mg/2 Ml Inj IV Q8H PRN Nausea And Vomiting Pravastatin Sodium 20 mg 11/16/20 22:00 11/23/20 22:14 Pravastatin 20 Mg Tab PO 20 mg QHS BARRY Administration Sodium Chloride 10 ml 11/16/20 22:00 11/24/20 10:51 Sodium Chloride 0.9% 10 Ml Flush Syringe IV 10 ml BID BARRY Administration Sodium Chloride 10 ml 11/16/20 12:07 Sodium Chloride 0.9% 10 Ml Flush Syringe IV PRN PRN LINE FLUSH Nutrition/Malnutrition Assess - Dietary Evaluation Nutrition/Malnutrition Findings: Nutrition Notes Start: 11/23/20 12:36 Freq: Status: Active Protocol: Document 11/23/20 12:36 BOLA (Rec: 11/23/20 13:19 BOLA [id number]) Co-Sign 11/23/20 12:36 MK Nutrition Notes Need for Assessment generated from: LOS Initial or Follow up Assessment Current Diagnosis Acute Kidney Injury,CKD(stage I-IV),Sepsis,Hypertension, Heart Failure,Hyperlipidemia Other Pertinent Diagnosis s/p amputation 2 toes on R foot, R foot osteomyelitis, MRSA, PVD Current Diet Consistent CHO Labs/Tests BP 181/98 BUN 24 Cr 3.8 BG 133 Pertinent Medications Humulin 70/30 37 units Height 6 ft 3 in Weight 130 kg [place] Body Weight (kg) 89.09 BMI 35.8 Weight Status Obese Subjective/Other Information LOS screen. Pt admitted with uncontrolled diabetes. Pt also dx with obesity hypoventiliation syndrome. Per chart, wound output minimal. Pt reported not feeling well at time of manager internet visit. He reported fine appetite and usual intake of two meals/day. Pt reported eating meat at every meal. Protein needs do not exceeded with current diet order. Pt agreed to try more vegetables. Pt nodded that he has had kidney diet education and did not need further education. Due to BP, added cardiac modification to diet order. Once pt is feeling better, recommend a full assessment interview to assess needs for MNT. Percent of energy/protein needs met: 100%/100% Burn Absent Trauma Absent GI Symptoms None Usual Diet at Home unknown Current % PO Good (75-100%) Minimum of two criteria No physical signs of malnutrition #1 Nutrition Diagnosis Altered nutrition-related laboratory values Etiology kidney and endocrine dysfunction As Evidenced by Signs and Symptoms pt's GFR is 21, admitted with BG 429, continuous elevated BP , and had DM-related amputation. Is patient on ventilator? No Is Patient Ambulatory and/or Out of Bed No REE-([facility]-confined to bed) 2721.612 Kcal/Kg value to use for calculation 14 Approximate Energy Requirements Using 1820 kcal/Kg Calculation Used for Recommendations Kcal/kg Additional Notes Protein 0.8-0.9 g/kg AdBW 110 k-99 g Fluid: 1ml/kcal or per MD Nutrition Intervention Change Diet Order: Modify Consistent CHO with cardiac diet modifications Goal #1 Cardiac diet modification will assist BP Goal #2 Diet acceptance Anticipated Discharge Needs: Diet with consistent carbohydrates at each meal from whole grains, lean proteins, and low sodium Follow-Up By: 11/27/20 Additional Comments F/u on BP, stable intakes, and need for diet education.
--- NOTE | 2020-11-24 14:26 | Progress Note ---
Assessment and Plan Cultures: 11/16/2020 blood culture: Group B streptococcus 11/16/2020 urine culture: No growth 11/20/2020 blood culture: no growth thus far A/P: 45 year old male with history of uncontrolled diabetes mellitus, hyperlipidemia, hypertension, chronic kidney disease, obesity, peripheral vascular disease, with multiple infectious complications especially his right foot in the recent past, now readmitted with: #Sepsis secondary to right foot infection #Group B strep bacteremia: Secondary to right foot infection #Worsening right diabetic foot infection with osteomyelitis: 3rd, 4th and 5th toe TMA on 10/10/2020, now again TMA of the right second toe amputation of the distal half of the third metatarsal shaft on 11/19/2020. Previously has grown MRSA and Pseudomonas from the R foot and was treated with IV abx. #Uncontrolled diabetes mellitus #Advanced CKD: has been refusing hemodialysis. Nephrology following. #Peripheral vascular disease: Seen by vascular, declining angiogram. Recs: -continue renally dosed IV Cefepime and PO Linezolid while inpatient -OPAT orders placed for IV Cefepime + Daptomycin x 4 weeks ending 12/18/2020 via home health -overall poor prognosis given his non compliance and lack of insight with regards to the disease process Cathy Rodriguez MD [facility], [place], [facility] ([facility] O: [phone] F: [phone] Subjective Date of service: 11/24/20 Principal diagnosis: Right foot cellulitis Interval history: Afebrile with persistently elevated white count 19. Objective - Exam Narrative Exam: Physical Exam: Constitutional: Awake. No acute distress Head, Ears, Nose: Normocephalic, atraumatic. External ears, nose normal Eyes: Conjunctivae/corneas clear. No icterus. No ptosis. Neck: Supple, no meningeal signs Cardiovascular: S1, S2 normal. Respiratory: Good air entry, clear to auscultation bilaterally GI: Soft, non-tender; bowel sounds normal. No peritoneal signs Musculoskeletal: R foot VAC + Skin: No rash or abscess Hem/Lymphatic: No palpable cervical or supraclavicular nodes. No lymphangitis Psych: flat affect Neurological: awake, no gross abnormality - Constitutional Vitals: Vital Signs Temp Pulse Resp BP Pulse Ox 98.4 F 113 H 18 158/91 100 11/24/20 11:34 11/24/20 11:34 11/24/20 11:34 11/24/20 11:34 11/24/20 11:34 Temperature -Last 24 Hours Temperature 98.4 F Temperature 98.0 F Temperature 98.3 F Temperature 98.4 F Temperature 98.7 F Temperature 98.4 F - Labs CBC & Chem 7: 11/23/20 05:01 11/23/20 05:01 Labs: Abnormal lab results 11/23/20 11/23/20 11/24/20 Range/Units 17:05 21:06 07:55 POC Glucose 115 H 154 H 162 H (70-105) mg/dL 11/24/20 Range/Units 11:34 POC Glucose 195 H (70-105) mg/dL
[2020-11-24] MEDS: HEPARIN 5,000 UNIT/1 ML VIAL SUB-Q SCH ×2 (15:03→21:59)
[2020-11-24] MEDS: hydrALAZINE 100 MG TAB PO SCH ×2 (15:55→21:58)
[2020-11-24] MEDS: GABAPENTIN 300 MG CAP PO SCH ×2 (15:55→21:59)
[2020-11-24] MEDS: BENZONATATE 100 MG CAP PO SCH ×2 (15:56→21:58)
[2020-11-24] MEDS: CEFEPIME/NS 2 GM/100 ML 2 GM/100 ML BAG IV SCH (17:57)
[2020-11-24] MEDS: PRAVASTATIN 20 MG TAB PO SCH (21:58)
[2020-11-25] MEDS: HYDROmorphone 1 MG/1 ML INJ IV PRN ×4 (03:26→22:59)
[2020-11-25] MEDS: GABAPENTIN 300 MG CAP PO SCH ×3 (05:43→22:54)
[2020-11-25] MEDS: HEPARIN 5,000 UNIT/1 ML VIAL SUB-Q SCH ×3 (05:43→22:54)
[2020-11-25] MEDS: hydrALAZINE 100 MG TAB PO SCH ×3 (05:45→22:53)
[2020-11-25] MEDS: hydrALAZINE 20 MG/1 ML INJ IV PRN ×2 (05:50→09:30)
[2020-11-25] MEDS: BENZONATATE 100 MG CAP PO SCH ×3 (05:52→22:55)
[2020-11-25] MEDS: INSULIN LISPRO 100 UNIT/ML SUB-Q SCH ×5 (05:53→22:55)
--- NOTE | 2020-11-25 08:33 | Progress Note ---
Assessment and Plan Assessment and plan: --Osteomyelitis of foot, right, acute Current Visit: Yes Status: Acute Plan to address problem: s/p partial TMA of the right foot involving the third fourth and fifth toes. Continue postop and wound care, wound VAC per surgery Physical therapy occupational therapy when patient is ready --Febrile illness, afebrile Current Visit: Yes Status: Acute Plan to address problem: Afebrile last 24 hours, Follow cultures ID evaluated the patient, adjusted the antibiotics --Sepsis/due to osteomyelitis foot/toes Current Visit: Yes Status: Acute Plan to address problem: Status post TMA second and third right metatarsal on IV antibiotics cefepime, Flagyl and linezolid ID DC'd Flagyl advised to continue cefepime and linezolid while in hospital At discharge IV cefepime plus daptomycin for 4 weeks ending 12/18/2020 Case management to assist with home health, and home antibiotics Patient does not have clear understanding of the seriousness of osteomyelitis and long-term antibiotics Overall poor prognosis given his non compliance and lack of insight with regards to the disease process Strongly advised to comply with medications. --Right hip and back pain; Current Visit: Yes Status: Acute Plan to address problem: Pain medications, x-ray lumbar spine and right hip findings reviewed No acute abnormality, patient will follow with surgeon/orthopedic --Acute on CKD progressing to stage IV Current Visit: Yes Status: Acute Plan to address problem: Due to vasomotor nephropathy avoid nephrotoxins, medications are renally dosed --Peripheral vascular disease Current Visit: Yes Status: Acute Plan to address problem: Vascular following. Patient refusing vascular work-up and recommendations --h/o MRSA cellulitis Current Visit: No Status: Acute Plan to address problem: CBC, CMP, blood culture, wound culture, IV antibiotic therapy, supportive care. Continue linezolid --Metabolic acidosis Current Visit: No Status: Acute Plan to address problem: Secondary to acute on chronic kidney disease Nephrology following --Diabetes mellitus with hyperglycemia Current Visit: No Status: Chronic Plan to address problem: Accu-Chek sliding scale coverage ADA diet Insulin as needed -- HLD (hyperlipidemia) Current Visit: No Status: Chronic Plan to address problem: Lipid panel, statin therapy, supportive care. Low-cholesterol diet, --hypertension Current Visit: No Status: Chronic Plan to address problem: continue antihypertensives Adjust blood pressure medication -- DVT prophylaxis Current Visit: Yes Status: Acute Plan to address problem: Heparin subcu Continue wound care. PT OT when patient is able to tolerate DC planning per case management ID recommended long-term antibiotics for total of 4 weeks Requested midline placement, discharge when cleared by surgery Plan of care reviewed with the patient and his nurse Brief history 45 YO Male with DM,HTN, HLD, Obesity Hypoventilation Syndrome, CKD, CHF, PAD, O steomyelitis, Nicotine Dependence presents to ED for evaluation. Pt reports "my foot hurts". Patient states that he has experienced pain in his right lower extremity over the past 1 week with persistently worsening symptoms over the past 2 days. Patient states that his pain is 5/10, constant, worsened with weightbearing, relieved with nonweightbearing. EMS was notified and upon arrival the patient was found to be in distress and subsequently transported to [facility] for further care and evaluation of the aforementioned symptoms. The patient was seen and evaluated in the emergency department. All lab and imaging studies reviewed. The patient was found to have right lower extremity osteomyelitis, right lower extremity cellulitis, sepsis, acute kidney injury, metabolic acidosis, uncontrolled diabetes, as well as accelerated hypertension. Pt admitted to surgical floor and initiated on sepsis protocol. Surgical team consulted in ED, Nephrology team consulted in ED. Pt denies fever, chills, CP, Palpitations, NVD, Trauma, BRBPR, recent ill contacts, or known exposure to COVID-19. Prior admission on 09/22/2020 reviewed. All medication listed at time of admission has been reconciled. 11/20/2020; patient is febrile T-max 102 F, patient is on empiric antibiotics, del valle culture sent, ID consulted For choice and duration of antibiotics., Will request PT and patient is able to tolerate physical therapy per surgeon 11/21/2020; patient feels slightly better continues to have severe pain, asking for more pain medications Vital signs reviewed, wound VAC applied to the right foot surgical wound. 11/22/2020; patient complains of some right hip pain and low back pain No history of fall, patient gives history of back surgery Will check x-ray hip and back 11/23/2020; hip x-ray no acute abnormality, lumbosacral spine x-ray all changes Patient need to follow-up with orthopedic surgeon upon discharge Continue antibiotics, wound care, follow surgery recommendations 11/24/2020; patient is sleeping, nurse reports that patient complains of pain On pain medications, antibiotics, surgery and ID following ID recommend long-term anticoagulation total for 4 weeks ending on 12/18/2020 11/25/2020; patient is on long-term antibiotics recommended by ID for total 4 weeks ending on 12/18/2020 Continue wound care, wound VAC in place, disposition per surgery DC planning per case management Patient refused midline placement for long-term antibiotics will check with surgeon Dr. Herrera regarding DC planning History Interval history: I have seen and examined the patient at the bedside Patient's chart and medications reviewed Patient feels slightly better, still has a lot of pain Patient refused midline placement for long-term antibiotics Vital signs noted Hospitalist Physical - Constitutional Vitals: Temp Pulse Resp BP Pulse Ox 97.8 F 90 18 165/100 95 11/25/20 06:59 11/25/20 06:59 11/25/20 06:59 11/25/20 06:59 11/25/20 06:59 General appearance: Present: no acute distress, well-nourished, obese - EENT Eyes: Present: PERRL, EOM intact - Neck Neck: Present: supple, normal ROM - Respiratory Respiratory effort: normal Respiratory: bilateral: diminished, negative: rales, rhonchi, wheezing - Cardiovascular Rhythm: regular Heart Sounds: Present: S1 & S2 - Extremities Extremities: no ischemia, No edema - Abdominal General gastrointestinal: soft, non-tender, non-distended, normal bowel sounds - Integumentary Integumentary: Present: clear, warm - Psychiatric Psychiatric: appropriate mood/affect, cooperative - Neurologic Neurologic: CNII-XII intact, moves all extremities Results - Labs CBC & Chem 7: 11/23/20 05:01 11/23/20 05:01 Labs: Laboratory Last Values WBC 19.0 K/mm3 (4.5-11.0) H 11/23/20 05:01 RBC 3.46 M/mm3 (3.65-5.03) L 11/23/20 05:01 Hgb 8.4 gm/dl (11.8-15.2) L 11/23/20 05:01 Hct 26.3 % (35.5-45.6) L 11/23/20 05:01 MCV 76 fl (84-94) L 11/23/20 05:01 MCH 24 pg (28-32) L 11/23/20 05:01 MCHC 32 % (32-34) 11/23/20 05:01 RDW 18.3 % (13.2-15.2) H 11/23/20 05:01 Plt Count 520 K/mm3 (140-440) H 11/23/20 05:01 Lymph % (Auto) 5.9 % (13.4-35.0) L 11/17/20 05:10 Garden % (Auto) 10.7 % (0.0-7.3) H 11/17/20 05:10 Eos % (Auto) 0.4 % (0.0-4.3) 11/17/20 05:10 Baso % (Auto) 0.2 % (0.0-1.8) 11/17/20 05:10 Lymph # (Auto) 1.1 K/mm3 (1.2-5.4) L 11/17/20 05:10 Garden # (Auto) 2.1 K/mm3 (0.0-0.8) H 11/17/20 05:10 Eos # (Auto) 0.1 K/mm3 (0.0-0.4) 11/17/20 05:10 Baso # (Auto) 0.0 K/mm3 (0.0-0.1) 11/17/20 05:10 Add Manual Diff Complete 11/22/20 05:26 Total Counted 100 11/22/20 05:26 Seg Neutrophils % 82.8 % (40.0-70.0) H 11/17/20 05:10 Seg Neuts % (Manual) 76.0 % (40.0-70.0) H 11/22/20 05:26 Lymphocytes % (Manual) 13.0 % (13.4-35.0) L 11/22/20 05:26 Monocytes % (Manual) 7.0 % (0.0-7.3) 11/22/20 05:26 Eosinophils % (Manual) 2.0 % (0.0-4.3) 11/22/20 05:26 Metamyelocytes % 1.0 % 11/22/20 05:26 Myelocytes % 1.0 % 11/22/20 05:26 Nucleated RBC % Not Reportable 11/22/20 05:26 Seg Neutrophils # 16.1 K/mm3 (1.8-7.7) H 11/17/20 05:10 Seg Neutrophils # Man 16.0 K/mm3 (1.8-7.7) H 11/22/20 05:26 Band Neutrophils # 0.0 K/mm3 11/22/20 05:26 Lymphocytes # (Manual) 2.7 K/mm3 (1.2-5.4) 11/22/20 05:26 Abs React Lymphs (Man) 0.0 K/mm3 11/22/20 05:26 Monocytes # (Manual) 1.5 K/mm3 (0.0-0.8) H 11/22/20 05:26 Eosinophils # (Manual) 0.4 K/mm3 (0.0-0.4) 11/22/20 05:26 Basophils # (Manual) 0.0 K/mm3 (0.0-0.1) 11/22/20 05:26 Metamyelocytes # 0.2 K/mm3 11/22/20 05:26 Myelocytes # 0.2 K/mm3 11/22/20 05:26 Promyelocytes # 0.0 K/mm3 11/22/20 05:26 Blast Cells # 0.0 K/mm3 11/22/20 05:26 WBC Morphology Not Reportable 11/22/20 05:26 Hypersegmented Neuts Not Reportable 11/22/20 05:26 Hyposegmented Neuts Not Reportable 11/22/20 05:26 Hypogranular Neuts Not Reportable 11/22/20 05:26 Smudge Cells Not Reportable 11/22/20 05:26 Toxic Granulation Not Reportable 11/22/20 05:26 Toxic Vacuolation Not Reportable 11/22/20 05:26 Dohle Bodies Not Reportable 11/22/20 05:26 Pelger-Huet Anomaly Not Reportable 11/22/20 05:26 Shayla Rods Not Reportable 11/22/20 05:26 Platelet Estimate Consistent w auto 11/22/20 05:26 Clumped Platelets Not Reportable 11/22/20 05:26 Plt Clumps, EDTA Not Reportable 11/22/20 05:26 Large Platelets Not Reportable 11/22/20 05:26 Giant Platelets Not Reportable 11/22/20 05:26 Platelet Satelliting Not Reportable 11/22/20 05:26 Plt Morphology Comment Not Reportable 11/22/20 05:26 RBC Morphology Not Reportable 11/22/20 05:26 Dimorphic RBCs Not Reportable 11/22/20 05:26 Polychromasia Not Reportable 11/22/20 05:26 Hypochromasia 1+ 11/22/20 05:26 Poikilocytosis Not Reportable 11/22/20 05:26 Anisocytosis Not Reportable 11/22/20 05:26 Microcytosis Not Reportable 11/22/20 05:26 Macrocytosis Not Reportable 11/22/20 05:26 Spherocytes Not Reportable 11/22/20 05:26 Pappenheimer Bodies Not Reportable 11/22/20 05:26 Sickle Cells Not Reportable 11/22/20 05:26 Target Cells Rare 11/22/20 05:26 Tear Drop Cells Not Reportable 11/22/20 05:26 Ovalocytes Not Reportable 11/22/20 05:26 Helmet Cells Not Reportable 11/22/20 05:26 [place] Bodies Not Reportable 11/22/20 05:26 [place] Rings Not Reportable 11/22/20 05:26 Ricky Cells Not Reportable 11/22/20 05:26 Bite Cells Not Reportable 11/22/20 05:26 Crenated Cell Not Reportable 11/22/20 05:26 Elliptocytes Not Reportable 11/22/20 05:26 Acanthocytes (Spur) Not Reportable 11/22/20 05:26 Rouleaux Not Reportable 11/22/20 05:26 Hemoglobin C Crystals Not Reportable 11/22/20 05:26 Schistocytes Not Reportable 11/22/20 05:26 Malaria parasites Not Reportable 11/22/20 05:26 Cristhian Bodies Not Reportable 11/22/20 05:26 Hem Pathologist Commnt No 11/22/20 05:26 PT 15.1 Sec. (12.2-14.9) H 11/16/20 10:15 INR 1.19 (0.87-1.13) H 11/16/20 10:15 APTT 37.0 Sec. (24.2-36.6) H 11/16/20 10:15 VBG pH 7.332 (7.320-7.420) 11/16/20 10:15 Sodium 135 mmol/L (137-145) L 11/23/20 05:01 Potassium 4.1 mmol/L (3.6-5.0) 11/23/20 05:01 Chloride 104.0 mmol/L (98-107) 11/23/20 05:01 Carbon Dioxide 18 mmol/L (22-30) L 11/23/20 05:01 Anion Gap 17 mmol/L 11/23/20 05:01 BUN 24 mg/dL (9-20) H 11/23/20 05:01 Creatinine 3.8 mg/dL (0.8-1.3) H 11/23/20 05:01 Estimated GFR 21 ml/min 11/23/20 05:01 BUN/Creatinine Ratio 6 % 11/23/20 05:01 Glucose 133 mg/dL (75-100) H 11/23/20 05:01 POC Glucose 154 mg/dL (70-105) H 11/25/20 06:58 Lactic Acid 1.00 mmol/L (0.7-2.0) 11/17/20 05:10 Calcium 8.7 mg/dL (8.4-10.2) 11/23/20 05:01 Magnesium 2.00 mg/dL (1.7-2.3) 11/16/20 10:15 Total Bilirubin 0.80 mg/dL (0.1-1.2) 11/19/20 05:55 Direct Bilirubin 0.5 mg/dL (0-0.2) H 11/16/20 10:15 Indirect Bilirubin 0.2 mg/dL 11/16/20 10:15 AST 19 units/L (5-40) 11/19/20 05:55 ALT 16 units/L (7-56) 11/19/20 05:55 Alkaline Phosphatase 245 units/L (35-129) H 11/19/20 05:55 Total Creatine Kinase 138 units/L (55-170) 11/16/20 10:15 Total Protein 8.0 g/dL (6.3-8.2) 11/19/20 05:55 Albumin 2.7 g/dL (3.9-5) L 11/19/20 05:55 Albumin/Globulin Ratio 0.5 % 11/19/20 05:55 Vancomycin Trough 9.8 ug/mL (5.0-20.0) 11/18/20 10:10 Random Vancomycin 6.1 ug/mL (0-40.0) 11/21/20 04:45 Microbiology: Microbiology 11/20/20 15:00 Peripheral/Venous Blood Culture - Preliminary NO GROWTH AFTER 4 DAYS 11/20/20 15:00 Peripheral/Venous Blood Culture - Preliminary NO GROWTH AFTER 4 DAYS Elder/IV: Voiding Method Urinal Active Medications - Current Medications Current Medications: Generic Name Dose Route Start Last Admin Trade Name Freq PRN Reason Stop Dose Admin Acetaminophen 650 mg 11/16/20 12:30 11/20/20 12:14 Acetaminophen 325 Mg Tab PO 650 mg Q6H PRN Administration Pain, Mild (1-3) Hydrocodone Bitart/Acetaminophen 1 each 11/16/20 12:23 11/23/20 11:19 Hydrocodone/Acetaminophen 5-325 Mg Tab PO 1 each Q6HR PRN Administration PAIN Albuterol 2.5 mg 11/16/20 12:30 Albuterol 2.5 Mg/3 Ml Nebu IH Q4HRT PRN Shortness Of Breath Benzonatate 100 mg 11/16/20 14:00 11/25/20 05:52 Benzonatate 100 Mg Cap PO Not Given Q8HR BARRY Dextrose 50 ml 11/16/20 12:30 Dextrose 50% In Water (25gm) 50 Ml Syringe IV Q30MIN PRN Hypoglycemia Protocol Famotidine 20 mg 11/19/20 10:00 11/24/20 10:51 Famotidine 20 Mg Tab PO 20 mg DAILY BARRY Administration Gabapentin 300 mg 11/16/20 14:00 11/25/20 05:43 Gabapentin 300 Mg Cap PO 300 mg Q8HR BARRY Administration Heparin Sodium (Porcine) 5,000 unit 11/16/20 14:00 11/25/20 05:43 Heparin 5,000 Unit/1 Ml Vial SUB-Q 5,000 unit Q8HR BARRY Administration Hydralazine HCl 100 mg 11/16/20 14:00 11/25/20 05:45 Hydralazine 100 Mg Tab PO 100 mg Q8HR BARRY Administration Hydralazine HCl 10 mg 11/22/20 12:57 11/25/20 05:50 Hydralazine 20 Mg/1 Ml Inj IV 10 mg Q4HR PRN Administration Blood Pressure Hydromorphone HCl 1 mg 11/22/20 13:01 11/25/20 03:26 Hydromorphone 1 Mg/1 Ml Inj IV 1 mg Q4H PRN Administration Pain , Severe (7-10) Sodium Chloride 250 mls @ 250 mls/hr 11/17/20 10:00 11/23/20 22:00 Nacl 0.9% 250ml IV 250 mls/hr Q12HR BARRY Administration Cefepime HCl 2 gm in 100 mls @ 200 mls/hr 11/20/20 15:00 11/24/20 17:57 Cefepime/Ns 2 Gm/100 Ml IV 200 mls/hr Q24H BARRY Administration Protocol Insulin Human Isoph/Insulin Regular 37 unit 11/18/20 17:00 11/24/20 18:01 Insulin Nph/Regular 70/30 Inj SUB-Q 37 unit BIDDIAB BARRY Administration Insulin Human Lispro 0 unit 11/17/20 18:00 11/25/20 05:53 Insulin Lispro 100 Unit/Ml SUB-Q Not Given Q4HR [facility] Protocol Linezolid 600 mg 11/20/20 15:00 11/24/20 21:56 Linezolid 600 Mg Tab PO 600 mg Q12HR BARRY Administration Protocol Metoprolol Tartrate 25 mg 11/16/20 22:00 11/24/20 21:57 Metoprolol Tartrate 25 Mg Tab PO 25 mg BID BARRY Administration Ondansetron HCl 4 mg 11/16/20 12:30 Ondansetron 4 Mg/2 Ml Inj IV Q8H PRN Nausea And Vomiting Pravastatin Sodium 20 mg 11/16/20 22:00 11/24/20 21:58 Pravastatin 20 Mg Tab PO 20 mg QHS BARRY Administration Sodium Chloride 10 ml 11/16/20 22:00 11/24/20 22:01 Sodium Chloride 0.9% 10 Ml Flush Syringe IV 10 ml BID BARRY Administration Sodium Chloride 10 ml 11/16/20 12:07 Sodium Chloride 0.9% 10 Ml Flush Syringe IV PRN PRN LINE FLUSH Nutrition/Malnutrition Assess - Dietary Evaluation Nutrition/Malnutrition Findings: Nutrition Notes Start: 11/23/20 12:36 Freq: Status: Active Protocol: Document 11/23/20 12:36 BOLA (Rec: 11/23/20 13:19 BOLA [id number]) Co-Sign 11/23/20 12:36 MK Nutrition Notes Need for Assessment generated from: LOS Initial or Follow up Assessment Current Diagnosis Acute Kidney Injury,CKD(stage I-IV),Sepsis,Hypertension, Heart Failure,Hyperlipidemia Other Pertinent Diagnosis s/p amputation 2 toes on R foot, R foot osteomyelitis, MRSA, PVD Current Diet Consistent CHO Labs/Tests BP 181/98 BUN 24 Cr 3.8 BG 133 Pertinent Medications Humulin 70/30 37 units Height 6 ft 3 in Weight 130 kg [place] Body Weight (kg) 89.09 BMI 35.8 Weight Status Obese Subjective/Other Information LOS screen. Pt admitted with uncontrolled diabetes. Pt also dx with obesity hypoventiliation syndrome. Per chart, wound output minimal. Pt reported not feeling well at time of mechanical intern visit. He reported fine appetite and usual intake of two meals/day. Pt reported eating meat at every meal. Protein needs do not exceeded with current diet order. Pt agreed to try more vegetables. Pt nodded that he has had kidney diet education and did not need further education. Due to BP, added cardiac modification to diet order. Once pt is feeling better, recommend a full assessment interview to assess needs for MNT. Percent of energy/protein needs met: 100%/100% Burn Absent Trauma Absent GI Symptoms None Usual Diet at Home unknown Current % PO Good (75-100%) Minimum of two criteria No physical signs of malnutrition #1 Nutrition Diagnosis Altered nutrition-related laboratory values Etiology kidney and endocrine dysfunction As Evidenced by Signs and Symptoms pt's GFR is 21, admitted with BG 429, continuous elevated BP , and had DM-related amputation. Is patient on ventilator? No Is Patient Ambulatory and/or Out of Bed No REE-([facility]-confined to bed) 2721.612 Kcal/Kg value to use for calculation 14 Approximate Energy Requirements Using 1820 kcal/Kg Calculation Used for Recommendations Kcal/kg Additional Notes Protein 0.8-0.9 g/kg AdBW 110 k-99 g Fluid: 1ml/kcal or per Nutrition Intervention Change Diet Order: Modify Consistent CHO with cardiac diet modifications Goal #1 Cardiac diet modification will assist BP Goal #2 Diet acceptance Anticipated Discharge Needs: Diet with consistent carbohydrates at each meal from whole grains, lean proteins, and low sodium Follow-Up By: 11/27/20 Additional Comments F/u on BP, stable intakes, and need for diet education.
[2020-11-25] MEDS: LINEZOLID 600 MG TAB PO SCH ×2 (09:34→22:53)
[2020-11-25] MEDS: METOPROLOL TARTRATE 25 MG TAB PO SCH ×2 (09:34→22:54)
[2020-11-25] MEDS: FAMOTIDINE 20 MG TAB PO SCH (09:35)
[2020-11-25] MEDS: INSULIN NPH/REGULAR 70/30 INJ SUB-Q SCH ×2 (09:55→18:14)
--- NOTE | 2020-11-25 15:12 | Progress Note ---
Assessment and Plan - Patient Problems (1) Acute kidney injury superimposed on CKD Current Visit: Yes Status: Acute Plan to address problem: Acute kidney injury superimposed on stage IV chronic kidney disease. Kidney function continues to improve. Labs not done this morning. Continue to monitor electrolytes and renal function (2) Osteomyelitis of foot, right, acute Current Visit: Yes Status: Acute Plan to address problem: Continue antibiotics appropriately adjusted to the degree of renal function. Infectious disease arranging for outpatient antibiotics. Will need midline placed. Benefits outweigh the risk. (3) Anemia in chronic illness Current Visit: Yes Status: Chronic Plan to address problem: Continue supplements and erythropoiesis stimulating agent as indicated. Follow- up hemoglobin (4) Diabetic foot ulcer with osteomyelitis Current Visit: No Status: Acute Plan to address problem: Blood sugar management by primary attending. Continue antibiotics and local wound care (5) Hypertensive chronic kidney disease with stage 1 through stage 4 chronic kidney disease, or unspecified chronic kidney disease Current Visit: No Status: Acute Plan to address problem: Follow-up blood pressure on current medications. Subjective Date of service: 11/25/20 Principal diagnosis: Right foot cellulitis Interval history: Patient seen lying in bed. He has no new complaints. Still has pain in his right foot. Complains of pain in his right hip. No chest pain, shortness of breath, nausea or vomiting. Objective - Exam Narrative Exam: Obese middle-aged -[place]istani male lying in bed in no acute distress HEENT: NCAT, Neck: Supple, no venous distention CVS: S1S2 RRR with no murmur, rub or gallop Chest: Clear to auscultation Abdomen: Protuberant, soft, nontender, no organomegaly, bowel sounds are present Extremities: No edema, dressing intact right foot Neuro: Awake, alert no focal deficits - Vital Signs Vital signs: Vital Signs - 12hr 11/25/20 11/25/20 05:50 06:59 Temperature 97.8 F Pulse Rate 85 90 Respiratory 18 Rate Blood Pressure 184/108 165/100 O2 Sat by Pulse 95 Oximetry - Lab 11/23/20 05:01 11/23/20 05:01 Most recent lab results Calcium 8.7 mg/dL (8.4-10.2) 11/23/20 05:01 Magnesium 2.00 mg/dL (1.7-2.3) 11/16/20 10:15 Medications & Allergies - Medications Allergies/Adverse Reactions: Allergies oxycodone [From Percocet] Adverse Reaction (Verified 09/24/20 18:07) Vomiting Home Medications: Home Medications Medication Instructions Recorded Confirmed Last Taken Type Pravastatin [Pravachol] 20 mg PO QHS #30 tablet 04/20/18 11/16/20 Unknown Rx Amlodipine Besylate [Norvasc] 10 mg PO DAILY 12/06/18 11/16/20 Unknown History Gabapentin 300 mg PO Q8HR 12/06/18 11/16/20 Unknown History Albuterol Mdi (or & Nicu Only) 2 puff IH QID PRN #1 inhalation 08/24/20 11/16/20 Unknown Rx [ProAir HFA Inhaler] Benzonatate [Tessalon Perles] 100 mg PO Q8HR #10 capsule 08/24/20 11/16/20 Unknown Rx DAPTOmycin 800 mg IV Q24H vial 09/28/20 11/16/20 Unknown Rx Insulin NPH/Regular [NovoLIN 70/30] 35 unit SUB-Q BIDDIAB #12 ml 09/28/2011/16 Unknown Rx Metoprolol [Lopressor TAB] 25 mg PO BID #60 tablet 09/28/20 11/16/20 Unknown Rx hydrALAZINE [Apresoline TAB] 100 mg PO Q8HR #90 tab 09/28/20 11/16/20 Unknown Rx HYDROcodone/APAP 5-325 [Lenore 1 each PO Q6HR PRN #14 tablet 10/13/20 11/16/20 Unknown Rx 5-325 mg TAB] Active Medications: Generic Name Dose Route Start Last Admin Trade Name Freq PRN Reason Stop Dose Admin Acetaminophen 650 mg 11/16/20 12:30 11/20/20 12:14 Acetaminophen 325 Mg Tab PO 650 mg Q6H PRN Administration Pain, Mild (1-3) Hydrocodone Bitart/Acetaminophen 1 each 11/16/20 12:23 11/23/20 11:19 Hydrocodone/Acetaminophen 5-325 Mg Tab PO 1 each Q6HR PRN Administration PAIN Albuterol 2.5 mg 11/16/20 12:30 Albuterol 2.5 Mg/3 Ml Nebu IH Q4HRT PRN Shortness Of Breath Benzonatate 100 mg 11/16/20 14:00 11/25/20 05:52 Benzonatate 100 Mg Cap PO Not Given Q8HR BARRY Dextrose 50 ml 11/16/20 12:30 Dextrose 50% In Water (25gm) 50 Ml Syringe IV Q30MIN PRN Hypoglycemia Protocol Famotidine 20 mg 11/19/20 10:00 11/25/20 09:35 Famotidine 20 Mg Tab PO 20 mg DAILY BARRY Administration Gabapentin 300 mg 11/16/20 14:00 11/25/20 05:43 Gabapentin 300 Mg Cap PO 300 mg Q8HR BARRY Administration Heparin Sodium (Porcine) 5,000 unit 11/16/20 14:00 11/25/20 05:43 Heparin 5,000 Unit/1 Ml Vial SUB-Q 5,000 unit Q8HR BARRY Administration Hydralazine HCl 100 mg 11/16/20 14:00 11/25/20 05:45 Hydralazine 100 Mg Tab PO 100 mg Q8HR BARRY Administration Hydralazine HCl 10 mg 11/22/20 12:57 11/25/20 09:30 Hydralazine 20 Mg/1 Ml Inj IV 10 mg Q4HR PRN Administration Blood Pressure Hydromorphone HCl 1 mg 11/22/20 13:01 11/25/20 09:30 Hydromorphone 1 Mg/1 Ml Inj IV 1 mg Q4H PRN Administration Pain , Severe (7-10) Sodium Chloride 250 mls @ 250 mls/hr 11/17/20 10:00 11/23/20 22:00 Nacl 0.9% 250ml IV 250 mls/hr Q12HR BARRY Administration Cefepime HCl 2 gm in 100 mls @ 200 mls/hr 11/20/20 15:00 11/24/20 17:57 Cefepime/Ns 2 Gm/100 Ml IV 200 mls/hr Q24H BARRY Administration Protocol Insulin Human Isoph/Insulin Regular 37 unit 11/18/20 17:00 11/25/20 09:55 Insulin Nph/Regular 70/30 Inj SUB-Q 37 unit BIDDIAB BARRY Administration Insulin Human Lispro 0 unit 11/17/20 18:00 11/25/20 05:53 Insulin Lispro 100 Unit/Ml SUB-Q Not Given Q4HR ON LICENSE OF [facility] Protocol Linezolid 600 mg 11/20/20 15:00 11/25/20 09:34 Linezolid 600 Mg Tab PO 600 mg Q12HR BARRY Administration Protocol Metoprolol Tartrate 25 mg 11/16/20 22:00 11/25/20 09:34 Metoprolol Tartrate 25 Mg Tab PO 25 mg BID BARRY Administration Ondansetron HCl 4 mg 11/16/20 12:30 Ondansetron 4 Mg/2 Ml Inj IV Q8H PRN Nausea And Vomiting Pravastatin Sodium 20 mg 11/16/20 22:00 11/24/20 21:58 Pravastatin 20 Mg Tab PO 20 mg QHS BARRY Administration Sodium Chloride 10 ml 11/16/20 22:00 11/24/20 22:01 Sodium Chloride 0.9% 10 Ml Flush Syringe IV 10 ml BID BARRY Administration Sodium Chloride 10 ml 11/16/20 12:07 Sodium Chloride 0.9% 10 Ml Flush Syringe IV PRN PRN LINE FLUSH
[2020-11-25] MEDS: SODIUM CHLORIDE 0.9% 250ML 250 ML IV SCH (16:32)
[2020-11-25] MEDS: CEFEPIME/NS 2 GM/100 ML 2 GM/100 ML BAG IV SCH (16:33)
[2020-11-25] MEDS: PRAVASTATIN 20 MG TAB PO SCH (22:54)
[2020-11-26] MEDS: HYDROmorphone 1 MG/1 ML INJ IV PRN ×3 (02:56→22:41)
[2020-11-26] MEDS: INSULIN LISPRO 100 UNIT/ML SUB-Q SCH ×6 (05:22→22:00)
[2020-11-26] MEDS: hydrALAZINE 100 MG TAB PO SCH ×3 (05:29→22:23)
[2020-11-26] MEDS: GABAPENTIN 300 MG CAP PO SCH ×4 (05:29→22:24)
[2020-11-26] MEDS: HEPARIN 5,000 UNIT/1 ML VIAL SUB-Q SCH ×4 (05:29→22:24)
[2020-11-26] MEDS: HYDROcodone/ACETAMINOPHEN 5-325 MG TAB PO PRN (05:31)
[2020-11-26] MEDS: BENZONATATE 100 MG CAP PO SCH ×4 (05:32→22:24)
[2020-11-26] MEDS: hydrALAZINE 20 MG/1 ML INJ IV PRN (05:37)
[2020-11-26 07:02] LABS: Basophils # (Auto) 0.1 K/mm3 (0.0-0.1); Basophils % (Auto) 0.7 % (0.0-1.8); Eosinophils # (Auto) 0.2 K/mm3 (0.0-0.4); Eosinophils % (Auto) 1.4 % (0.0-4.3); Hematocrit 26.9 % (35.5-45.6); Hemoglobin 8.3 gm/dl (11.8-15.2); Lymphocytes # (Auto) 2.2 K/mm3 (1.2-5.4); Lymphocytes % (Auto) 14.5 % (13.4-35.0); Mean Corpuscular HGB Conc 31 % (32-34); Mean Corpuscular Volume 77 fl (84-94); Monocytes # (Auto) 1.2 K/mm3 (0.0-0.8); Monocytes % (Auto) 7.9 % (0.0-7.3); Platelet Count 585 K/mm3 (140-440); Red Blood Count 3.48 M/mm3 (3.65-5.03); Red Cell Distribution Width 19.2 % (13.2-15.2)
[2020-11-26 07:22] LABS: Albumin 2.7 g/dL (3.9-5); Calcium 8.7 mg/dL (8.4-10.2)
--- NOTE | 2020-11-26 08:53 | Progress Note ---
Assessment and Plan - Patient Problems (1) Acute kidney injury superimposed on CKD Current Visit: Yes Status: Acute Plan to address problem: Acute kidney injury superimposed on stage IV chronic kidney disease. Kidney function continues to improve slowly. Continue to monitor electrolytes and renal function. Okay to discharge from renal perspective (2) Osteomyelitis of foot, right, acute Current Visit: Yes Status: Acute Plan to address problem: Continue antibiotics appropriately adjusted to the degree of renal function. Infectious disease arranging for outpatient antibiotics. Will need midline placed. Benefits outweigh the risk. (3) Anemia in chronic illness Current Visit: Yes Status: Chronic Plan to address problem: Continue supplements and erythropoiesis stimulating agent as indicated. Follow- up hemoglobin (4) Diabetic foot ulcer with osteomyelitis Current Visit: No Status: Acute Plan to address problem: Blood sugar management by primary attending. Continue antibiotics and local wound care (5) Hypertensive chronic kidney disease with stage 1 through stage 4 chronic kidney disease, or unspecified chronic kidney disease Current Visit: No Status: Acute Plan to address problem: Follow-up blood pressure on current medications. (6) Right hip pain Current Visit: Yes Status: Acute Plan to address problem: CT scan on admission only showed osteoarthritis. Trial of muscle relaxant.. May benefit from physical therapy Subjective Date of service: 11/26/20 Principal diagnosis: Right foot cellulitis Interval history: Patient seen lying in bed. He has no new complaints. Still has pain in his right foot. Complains of pain in his right hip. No chest pain, shortness of breath, nausea or vomiting. Objective - Exam Narrative Exam: Obese middle-aged -[place] male lying in bed in no acute distress HEENT: NCAT, Neck: Supple, no venous distention CVS: S1S2 RRR with no murmur, rub or gallop Chest: Clear to auscultation Abdomen: Protuberant, soft, nontender, no organomegaly, bowel sounds are present Extremities: No edema, dressing intact right foot Neuro: Awake, alert no focal deficits - Vital Signs Vital signs: Vital Signs - 12hr 11/25/20 11/25/20 11/26/20 22:54 23:58 05:37 Temperature 98.5 F Pulse Rate 93 H 95 H Respiratory 18 Rate Blood Pressure 155/88 171/107 175/100 O2 Sat by Pulse 94 Oximetry 11/26/20 11/26/20 06:09 08:10 Temperature 97.5 F L 97.6 F Pulse Rate 90 90 Respiratory 20 18 Rate Blood Pressure 182/111 159/88 O2 Sat by Pulse 97 99 Oximetry - Lab 11/26/20 06:42 11/26/20 06:42 Most recent lab results Calcium 8.7 mg/dL (8.4-10.2) 11/26/20 06:42 Magnesium 2.00 mg/dL (1.7-2.3) 11/16/20 10:15 Medications & Allergies - Medications Allergies/Adverse Reactions: Allergies oxycodone [From Percocet] Adverse Reaction (Verified 09/24/20 18:07) Vomiting Home Medications: Home Medications Medication Instructions Recorded Confirmed Last Taken Type Pravastatin [Pravachol] 20 mg PO QHS #30 tablet 04/20/18 11/16/20 Unknown Rx Amlodipine Besylate [Norvasc] 10 mg PO DAILY 12/06/18 11/16/20 Unknown History Gabapentin 300 mg PO Q8HR 12/06/18 11/16/20 Unknown History Albuterol Mdi (or & Nicu Only) 2 puff IH QID PRN #1 inhalation 08/24/20 11/16/20 Unknown Rx [ProAir HFA Inhaler] Benzonatate [Tessalon Perles] 100 mg PO Q8HR #10 capsule 08/24/20 11/16/20 Unknown Rx DAPTOmycin 800 mg IV Q24H vial 09/28/20 11/16/20 Unknown Rx Insulin NPH/Regular [NovoLIN 70/30] 35 unit SUB-Q BIDDIAB #12 ml 09/28/20 11/16/20 Unknown Rx Metoprolol [Lopressor TAB] 25 mg PO BID #60 tablet 09/28/20 11/16/20 Unknown Rx hydrALAZINE [Apresoline TAB] 100 mg PO Q8HR #90 tab 09/28/20 11/16/20 Unknown Rx HYDROcodone/APAP 5-325 [[place] 1 each PO Q6HR PRN #14 tablet 10/13/20 11/16/20 Unknown Rx 5-325 mg TAB] Active Medications: Generic Name Dose Route Start Last Admin Trade Name Freq PRN Reason Stop Dose Admin Acetaminophen 650 mg 11/16/20 12:30 11/20/20 12:14 Acetaminophen 325 Mg Tab PO 650 mg Q6H PRN Administration Pain, Mild (1-3) Hydrocodone Bitart/Acetaminophen 1 each 11/16/20 12:23 11/26/20 05:31 Hydrocodone/Acetaminophen 5-325 Mg Tab PO 1 each Q6HR PRN Administration PAIN Albuterol 2.5 mg 11/16/20 12:30 Albuterol 2.5 Mg/3 Ml Nebu IH Q4HRT PRN Shortness Of Breath Benzonatate 100 mg 11/16/20 14:00 11/26/20 05:32 Benzonatate 100 Mg Cap PO Not Given Q8HR BARRY Dextrose 50 ml 11/16/20 12:30 Dextrose 50% In Water (25gm) 50 Ml Syringe IV Q30MIN PRN Hypoglycemia Protocol Famotidine 20 mg 11/19/20 10:00 11/25/20 09:35 Famotidine 20 Mg Tab PO 20 mg DAILY BARRY Administration Gabapentin 300 mg 11/16/20 14:00 11/26/20 05:29 Gabapentin 300 Mg Cap PO 300 mg Q8HR BARRY Administration Heparin Sodium (Porcine) 5,000 unit 11/16/20 14:00 11/26/20 05:29 Heparin 5,000 Unit/1 Ml Vial SUB-Q 5,000 unit Q8HR BARRY Administration Hydralazine HCl 100 mg 11/16/20 14:00 11/26/20 05:29 Hydralazine 100 Mg Tab PO 100 mg Q8HR BARRY Administration Hydralazine HCl 10 mg 11/22/20 12:57 11/26/20 05:37 Hydralazine 20 Mg/1 Ml Inj IV 10 mg Q4HR PRN Administration Blood Pressure Hydromorphone HCl 1 mg 11/22/20 13:01 11/26/20 02:56 Hydromorphone 1 Mg/1 Ml Inj IV 1 mg Q4H PRN Administration Pain , Severe (7-10) Sodium Chloride 250 mls @ 250 mls/hr 11/17/20 10:00 11/25/20 16:32 Nacl 0.9% 250ml IV 250 mls/hr Q12HR BARRY Administration Cefepime HCl 2 gm in 100 mls @ 200 mls/hr 11/20/20 15:00 11/25/20 16:33 Cefepime/Ns 2 Gm/100 Ml IV 200 mls/hr Q24H BARRY Administration Protocol Insulin Human Isoph/Insulin Regular 37 unit 11/18/20 17:00 11/25/20 18:14 Insulin Nph/Regular 70/30 Inj SUB-Q 37 unit BIDDIAB BARRY Administration Insulin Human Lispro 0 unit 11/17/20 18:00 11/26/20 05:30 Insulin Lispro 100 Unit/Ml SUB-Q Not Given Q4HR [facility] Protocol Linezolid 600 mg 11/20/20 15:00 11/25/20 22:53 Linezolid 600 Mg Tab PO 600 mg Q12HR BARRY Administration Protocol Metoprolol Tartrate 25 mg 11/16/20 22:00 11/25/20 22:54 Metoprolol Tartrate 25 Mg Tab PO 25 mg BID BARRY Administration Ondansetron HCl 4 mg 11/16/20 12:30 Ondansetron 4 Mg/2 Ml Inj IV Q8H PRN Nausea And Vomiting Pravastatin Sodium 20 mg 11/16/20 22:00 11/25/20 22:54 Pravastatin 20 Mg Tab PO 20 mg QHS BARRY Administration Sodium Chloride 10 ml 11/16/20 22:00 11/25/20 22:56 Sodium Chloride 0.9% 10 Ml Flush Syringe IV 10 ml BID BARRY Administration Sodium Chloride 10 ml 11/16/20 12:07 Sodium Chloride 0.9% 10 Ml Flush Syringe IV PRN PRN LINE FLUSH
[2020-11-26] MEDS: INSULIN NPH/REGULAR 70/30 INJ SUB-Q SCH ×2 (08:56→18:21)
[2020-11-26] MEDS: SODIUM CHLORIDE 0.9% 250ML 250 ML IV SCH (08:58)
[2020-11-26] MEDS ORDERED: METAXALONE 800 MG TAB PO PRN (10:00)
[2020-11-26] MEDS: FAMOTIDINE 20 MG TAB PO SCH (11:05)
[2020-11-26] MEDS: METOPROLOL TARTRATE 25 MG TAB PO SCH ×2 (11:05→22:25)
[2020-11-26] MEDS: LINEZOLID 600 MG TAB PO SCH ×2 (11:07→22:26)
--- NOTE | 2020-11-26 13:36 | Progress Note ---
Assessment and Plan 45-year-old male with PVD and diabetic foot ulcer status post multiple minor amputations with wound VAC placement. Risks, benefits, and alternatives of diagnostic angiogram of the right lower extremity with possible endovascular revascularization. Patient understands risks of further nephrotoxicity, but understands we will try to mitigate them by decreasing the amount of contrast used and predominantly using CO2. Risks, benefits, and alternatives discussed. Patient agrees with procedure. Discussed with Dr. Torres who recommended gentle IV hydration which I started in preparation for procedure tomorrow. N.p.o. after midnight except sips of water with meds. Subjective Principal diagnosis: Right foot PVD Interval history: Creatinine has improved somewhat. Discussed this with patient and discussed possibility of diagnostic angiogram with possible revascularization. Discussed with him that this would optimize his wound healing potential and given his unde rlying severe diabetes, this would definitely be optimal, but there is clearly a nephrotoxic risk and I discussed how I would limit the amount of contrast dye use, but that this risk is still real. He understands. Discussed with Dr. Torres who recommended IV hydration overnight. Objective - Constitutional Vitals: Vital Signs - 12hr 11/26/20 11/26/20 11/26/20 05:37 06:09 08:10 Temperature 97.5 F L 97.6 F Pulse Rate 90 90 Respiratory 20 18 Rate Blood Pressure 175/100 182/111 159/88 O2 Sat by Pulse 97 99 Oximetry 11/26/20 11:05 Temperature Pulse Rate 90 Respiratory Rate Blood Pressure 159/88 O2 Sat by Pulse Oximetry General appearance: Present: no acute distress - EENT Eyes: EOM intact ENT: hearing intact - Respiratory Respiratory effort: normal Extremities: normal temperature, normal color, abnormal (Palpable left pedal pulses, nonpalpable right pedal pulses, wound VAC over the preponderance of the lateral forefoot) - Gastrointestinal General gastrointestinal: Present: soft, non-tender - Psychiatric Psychiatric: appropriate mood/affect, cooperative - Labs CBC & Chem 7: 11/26/20 06:42 11/26/20 06:42 Labs: Abnormal lab results 11/25/20 11/26/20 11/26/20 Range/Units 16:28 06:42 06:42 WBC 15.2 H (4.5-11.0) K/mm3 RBC 3.48 L (3.65-5.03) M/mm3 Hgb 8.3 L (11.8-15.2) gm/dl Hct 26.9 L (35.5-45.6) % MCV 77 L (84-94) fl MCH 24 L (28-32) pg MCHC 31 L (32-34) % RDW 19.2 H (13.2-15.2) % Plt Count 585 H (140-440) K/mm3 [place] % (Auto) 7.9 H (0.0-7.3) % [place] # (Auto) 1.2 H (0.0-0.8) K/mm3 Seg Neutrophils % 75.5 H (40.0-70.0) % Seg Neutrophils # 11.5 H (1.8-7.7) K/mm3 Sodium 134 L (137-145) mmol/L Carbon Dioxide 20 L (22-30) mmol/L BUN 23 H (9-20) mg/dL Creatinine 3.6 H (0.8-1.3) mg/dL Glucose 134 H (75-100) mg/dL POC Glucose 129 H (70-105) mg/dL Alkaline Phosphatase 215 H (35-129) units/L Albumin 2.7 L (3.9-5) g/dL 11/26/20 11/26/20 Range/Units 08:07 11:52 WBC (4.5-11.0) K/mm3 RBC (3.65-5.03) M/mm3 Hgb (11.8-15.2) gm/dl Hct (35.5-45.6) % MCV (84-94) fl MCH (28-32) pg MCHC (32-34) % RDW (13.2-15.2) % Plt Count (140-440) K/mm3 [place] % (Auto) (0.0-7.3) % [place] # (Auto) (0.0-0.8) K/mm3 Seg Neutrophils % (40.0-70.0) % Seg Neutrophils # (1.8-7.7) K/mm3 Sodium (137-145) mmol/L Carbon Dioxide (22-30) mmol/L BUN (9-20) mg/dL Creatinine (0.8-1.3) mg/dL Glucose (75-100) mg/dL POC Glucose 138 H 121 H (70-105) mg/dL Alkaline Phosphatase (35-129) units/L Albumin (3.9-5) g/dL Medications & Allergies - Medications Allergies/Adverse Reactions: Allergies oxycodone [From Percocet] Adverse Reaction (Verified 09/24/20 18:07) Vomiting Home Medications: Home Medications Medication Instructions Recorded Confirmed Last Taken Type Pravastatin [Pravachol] 20 mg PO QHS #30 tablet 04/20/18 11/16/20 Unknown Rx Amlodipine Besylate [Norvasc] 10 mg PO DAILY 12/06/18 11/16/20 Unknown History Gabapentin 300 mg PO Q8HR 12/06/18 11/16/20 Unknown History Albuterol Mdi (or & Nicu Only) 2 puff IH QID PRN #1 inhalation 08/24/20 11/16/20 Unknown Rx [ProAir HFA Inhaler] Benzonatate [Tessalon Perles] 100 mg PO Q8HR #10 capsule 08/24/20 11/16/20 Unknown Rx DAPTOmycin 800 mg IV Q24H vial 09/28/20 11/16/20 Unknown Rx Insulin NPH/Regular [NovoLIN 70/30] 35 unit SUB-Q BIDDIAB #12 ml 09/28/20 11/16/20 Unknown Rx Metoprolol [Lopressor TAB] 25 mg PO BID #60 tablet 09/28/20 11/16/20 Unknown Rx hydrALAZINE [Apresoline TAB] 100 mg PO Q8HR #90 tab 09/28/20 11/16/20 Unknown Rx HYDROcodone/APAP 5-325 [[place] 1 each PO Q6HR PRN #14 tablet 10/13/20 11/16/20 Un known Rx 5-325 mg TAB] Active Medications: Generic Name Dose Route Start Last Admin Trade Name Freq PRN Reason Stop Dose Admin Acetaminophen 650 mg 11/16/20 12:30 11/20/20 12:14 Acetaminophen 325 Mg Tab PO 650 mg Q6H PRN Administration Pain, Mild (1-3) Hydrocodone Bitart/Acetaminophen 1 each 11/16/20 12:23 11/26/20 05:31 Hydrocodone/Acetaminophen 5-325 Mg Tab PO 1 each Q6HR PRN Administration PAIN Albuterol 2.5 mg 11/16/20 12:30 Albuterol 2.5 Mg/3 Ml Nebu IH Q4HRT PRN Shortness Of Breath Benzonatate 100 mg 11/16/20 14:00 11/26/20 05:32 Benzonatate 100 Mg Cap PO Not Given Q8HR BARRY Dextrose 50 ml 11/16/20 12:30 Dextrose 50% In Water (25gm) 50 Ml Syringe IV Q30MIN PRN Hypoglycemia Protocol Famotidine 20 mg 11/19/20 10:00 11/26/20 11:05 Famotidine 20 Mg Tab PO 20 mg DAILY BARRY Administration Gabapentin 300 mg 11/16/20 14:00 11/26/20 05:29 Gabapentin 300 Mg Cap PO 300 mg Q8HR BARRY Administration Heparin Sodium (Porcine) 5,000 unit 11/16/20 14:00 11/26/20 05:29 Heparin 5,000 Unit/1 Ml Vial SUB-Q 5,000 unit Q8HR BARRY Administration Hydralazine HCl 100 mg 11/16/20 14:00 11/26/20 05:29 Hydralazine 100 Mg Tab PO 100 mg Q8HR BARRY Administration Hydralazine HCl 10 mg 11/22/20 12:57 11/26/20 05:37 Hydralazine 20 Mg/1 Ml Inj IV 10 mg Q4HR PRN Administration Blood Pressure Hydromorphone HCl 1 mg 11/22/20 13:01 11/26/20 02:56 Hydromorphone 1 Mg/1 Ml Inj IV 1 mg Q4H PRN Administration Pain , Severe (7-10) Sodium Chloride 250 mls @ 250 mls/hr 11/17/20 10:00 11/26/20 08:58 Nacl 0.9% 250ml IV 250 mls/hr Q12HR BARRY Administration Cefepime HCl 2 gm in 100 mls @ 200 mls/hr 11/20/20 15:00 11/25/20 16:33 Cefepime/Ns 2 Gm/100 Ml IV 200 mls/hr Q24H BRARY Administration Protocol Sodium Chloride 1,000 mls @ 75 mls/hr 11/26/20 13:30 Nacl 0.9% 1000 Ml IV DIRECT BARRY Insulin Human Isoph/Insulin Regular 37 unit 11/18/20 17:00 11/26/20 08:56 Insulin Nph/Regular 70/30 Inj SUB-Q 37 unit BIDDIAB BARRY Administration Insulin Human Lispro 0 unit 11/17/20 18:00 11/26/20 09:06 Insulin Lispro 100 Unit/Ml SUB-Q Not Given Q4HR BARRY Protocol Linezolid 600 mg 11/20/20 15:00 11/26/20 11:07 Linezolid 600 Mg Tab PO 600 mg Q12HR BARRY Administration Protocol Metaxalone 800 mg 11/26/20 10:00 Metaxalone 800 Mg Tab PO Q12H PRN Muscle Spasm Metoprolol Tartrate 25 mg 11/16/20 22:00 11/26/20 11:05 Metoprolol Tartrate 25 Mg Tab PO 25 mg BID BARRY Administration Ondansetron HCl 4 mg 11/16/20 12:30 Ondansetron 4 Mg/2 Ml Inj IV Q8H PRN Nausea And Vomiting Pravastatin Sodium 20 mg 11/16/20 22:00 11/25/20 22:54 Pravastatin 20 Mg Tab PO 20 mg QHS BARRY Administration Sodium Chloride 10 ml 11/16/20 22:00 11/26/20 11:07 Sodium Chloride 0.9% 10 Ml Flush Syringe IV 10 ml BID BARRY Administration Sodium Chloride 10 ml 11/16/20 12:07 Sodium Chloride 0.9% 10 Ml Flush Syringe IV PRN PRN LINE FLUSH
[2020-11-26] MEDS: SODIUM CHLORIDE 0.9% 1000 ML 1,000 ML IV SCH (14:10)
[2020-11-26] MEDS: CEFEPIME/NS 2 GM/100 ML 2 GM/100 ML BAG IV SCH (15:26)
--- NOTE | 2020-11-26 16:25 | Progress Note ---
Assessment and Plan Cultures: 11/16/2020 blood culture: Group B streptococcus 11/16/2020 urine culture: No growth 11/20/2020 blood culture: no growth thus far A/P: 45 year old male with history of uncontrolled diabetes mellitus, hyperlipidemia, hypertension, chronic kidney disease, obesity, peripheral vascular disease, with multiple infectious complications especially his right foot in the recent past, now readmitted with: #Sepsis secondary to right foot infection #Group B strep bacteremia: Secondary to right foot infection #Worsening right diabetic foot infection with osteomyelitis: 3rd, 4th and 5th toe TMA on 10/10/2020, now again TMA of the right second toe amputation of the distal half of the third metatarsal shaft on 11/19/2020. Previously has grown MRSA and Pseudomonas from the R foot and was treated with IV abx. #Uncontrolled diabetes mellitus #Advanced CKD: has been refusing hemodialysis. Nephrology following. #Peripheral vascular disease: Seen by vascular, declining angiogram. Recs: -continue renally dosed IV Cefepime and PO Linezolid while inpatient -OPAT orders placed for IV Cefepime + Daptomycin x 4 weeks ending 12/18/2020 via home health -overall poor prognosis given his non compliance and lack of insight with regards to the disease process Cathy Rodriguez MD [facility] O: [phone] F: [phone] Subjective Date of service: 11/26/20 Principal diagnosis: Right foot PVD Interval history: Afebrile, white count remains elevated at 15.2 which is improved from previous. Pending possible revascularization tomorrow. Objective - Exam Narrative Exam: Physical Exam: Constitutional: Awake. No acute distress Head, Ears, Nose: Normocephalic, atraumatic. External ears, nose normal Eyes: Conjunctivae/corneas clear. No icterus. No ptosis. Neck: Supple, no meningeal signs Cardiovascular: S1, S2 normal. Respiratory: Good air entry, clear to auscultation bilaterally GI: Soft, non-tender; bowel sounds normal. No peritoneal signs Musculoskeletal: R foot VAC + Skin: No rash or abscess Hem/Lymphatic: No palpable cervical or supraclavicular nodes. No lymphangitis Psych: flat affect Neurological: awake, no gross abnormality - Constitutional Vitals: Vital Signs Temp Pulse Resp BP Pulse Ox 97.6 F 95 H 17 172/111 96 11/26/20 11:51 11/26/20 11:51 11/26/20 11:51 11/26/20 11:51 11/26/20 11:51 Temperature -Last 24 Hours Temperature 97.6 F Temperature 97.6 F Temperature 97.5 F Temperature 98.5 F Temperature 98.2 F - Labs CBC & Chem 7: 11/26/20 06:42 11/26/20 06:42 Labs: Abnormal lab results 11/25/20 11/26/20 11/26/20 Range/Units 16:28 06:42 06:42 WBC 15.2 H (4.5-11.0) K/mm3 RBC 3.48 L (3.65-5.03) M/mm3 Hgb 8.3 L (11.8-15.2) gm/dl Hct 26.9 L (35.5-45.6) % MCV 77 L (84-94) fl MCH 24 L (28-32) pg MCHC 31 L (32-34) % RDW 19.2 H (13.2-15.2) % Plt Count 585 H (140-440) K/mm3 [place] % (Auto) 7.9 H (0.0-7.3) % [place] # (Auto) 1.2 H (0.0-0.8) K/mm3 Seg Neutrophils % 75.5 H (40.0-70.0) % Seg Neutrophils # 11.5 H (1.8-7.7) K/mm3 Sodium 134 L (137-145) mmol/L Carbon Dioxide 20 L (22-30) mmol/L BUN 23 H (9-20) mg/dL Creatinine 3.6 H (0.8-1.3) mg/dL Glucose 134 H (75-100) mg/dL POC Glucose 129 H (70-105) mg/dL Alkaline Phosphatase 215 H (35-129) units/L Albumin 2.7 L (3.9-5) g/dL 11/26/20 11/26/20 Range/Units 08:07 11:52 WBC (4.5-11.0) K/mm3 RBC (3.65-5.03) M/mm3 Hgb (11.8-15.2) gm/dl Hct (35.5-45.6) % MCV (84-94) fl MCH (28-32) pg MCHC (32-34) % RDW (13.2-15.2) % Plt Count (140-440) K/mm3 [place] % (Auto) (0.0-7.3) % [place] # (Auto) (0.0-0.8) K/mm3 Seg Neutrophils % (40.0-70.0) % Seg Neutrophils # (1.8-7.7) K/mm3 Sodium (137-145) mmol/L Carbon Dioxide (22-30) mmol/L BUN (9-20) mg/dL Creatinine (0.8-1.3) mg/dL Glucose (75-100) mg/dL POC Glucose 138 H 121 H (70-105) mg/dL Alkaline Phosphatase (35-129) units/L Albumin (3.9-5) g/dL
--- NOTE | 2020-11-26 18:32 | Progress Note ---
Assessment and Plan Assessment and plan: --Osteomyelitis of foot, right, acute Current Visit: Yes Status: Acute Plan to address problem: s/p partial TMA of the right foot involving the third fourth and fifth toes. Continue postop and wound care, wound VAC per surgery Physical therapy occupational therapy when patient is ready --Febrile illness, afebrile Current Visit: Yes Status: Acute Plan to address problem: Afebrile last 24 hours, Follow cultures ID evaluated the patient, adjusted the antibiotics --Sepsis/due to osteomyelitis foot/toes Current Visit: Yes Status: Acute Plan to address problem: Status post TMA second and third right metatarsal on IV antibiotics cefepime, Flagyl and linezolid ID DC'd Flagyl advised to continue cefepime and linezolid while in hospital At discharge IV cefepime plus daptomycin for 4 weeks ending 12/18/2020 Case management to assist with home health, and home antibiotics Patient does not have clear understanding of the seriousness of osteomyelitis and long-term antibiotics Overall poor prognosis given his non compliance and lack of insight with regards to the disease process Strongly advised to comply with medications. --Right hip and back pain; Current Visit: Yes Status: Acute Plan to address problem: Pain medications,right hip findings reviewed No acute abnormality, patient will follow with surgeon/orthopedic L4 mild compression fracture age indeterminate, Ortho consult. --Back pain: L4 compression fracture age-indeterminate Current Visit: Yes Status: Acute Plan to address problem: X-ray lumbosacral spine; mild L4 compression fracture age-indeterminate Pain management, PT OT, orthopedic consult inpatient versus outpatient --Acute on CKD progressing to stage IV Current Visit: Yes Status: Acute Plan to address problem: Due to vasomotor nephropathy avoid nephrotoxins, medications are renally dosed --Peripheral vascular disease Current Visit: Yes Status: Acute Plan to address problem: Vascular following. Patient refusing vascular work-up and recommendations --h/o MRSA cellulitis Current Visit: No Status: Acute Plan to address problem: CBC, CMP, blood culture, wound culture, IV antibiotic therapy, supportive care. Continue linezolid --Metabolic acidosis Current Visit: No Status: Acute Plan to address problem: Secondary to acute on chronic kidney disease Nephrology following --Diabetes mellitus with hyperglycemia Current Visit: No Status: Chronic Plan to address problem: Accu-Chek sliding scale coverage ADA diet Insulin as needed -- HLD (hyperlipidemia) Current Visit: No Status: Chronic Plan to address problem: Lipid panel, statin therapy, supportive care. Low-cholesterol diet, --hypertension Current Visit: No Status: Chronic Plan to address problem: continue antihypertensives Adjust blood pressure medication -- DVT prophylaxis Current Visit: Yes Status: Acute Plan to address problem: Heparin subcu Continue wound care. PT OT when patient is able to tolerate DC planning per case management ID recommended long-term antibiotics for total of 4 weeks Requested midline placement, discharge when cleared by surgery Plan of care reviewed with the patient and his nurse Brief history 45 YO Male with DM,HTN, HLD, Obesity Hypoventilation Syndrome, CKD, CHF, PAD, Osteomyelitis, Nicotine Dependence presents to ED for evaluation. Pt reports "my foot hurts". Patient states that he has experienced pain in his right lower extremity over the past 1 week with persistently worsening symptoms over the past 2 days. Patient states that his pain is 5/10, constant, worsened with weightbearing, relieved with nonweightbearing. EMS was notified and upon arrival the patient was found to be in distress and subsequently transported to [facility] for further care and evaluation of the aforementioned symptoms. The patient was seen and evaluated in the emergency department. All lab and imaging studies reviewed. The patient was found to have right lower extremity osteomyelitis, right lower extremity cellulitis, sepsis, acute kidney injury, metabolic acidosis, uncontrolled diabetes, as well as accelerated hypertension. Pt admitted to surgical floor and initiated on sepsis protocol. Surgical team consulted in ED, Nephrology team consulted in ED. Pt denies fever, chills, CP, Palpitations, NVD, Trauma, BRBPR, recent ill contacts, or known exposure to COVID-19. Prior admission on 09/22/2020 reviewed. All medication listed at time of admission has been reconciled. 11/20/2020; patient is febrile T-max 102 F, patient is on empiric antibiotics, del valle culture sent, ID consulted For choice and duration of antibiotics., Will request PT and patient is able to tolerate physical therapy per surgeon 11/21/2020; patient feels slightly better continues to have severe pain, asking for more pain medications Vital signs reviewed, wound VAC applied to the right foot surgical wound. 11/22/2020; patient complains of some right hip pain and low back pain No history of fall, patient gives history of back surgery Will check x-ray hip and back 11/23/2020; hip x-ray no acute abnormality, lumbosacral spine x-ray all changes Patient need to follow-up with orthopedic surgeon upon discharge Continue antibiotics, wound care, follow surgery recommendations 11/24/2020; patient is sleeping, nurse reports that patient complains of pain On pain medications, antibiotics, surgery and ID following ID recommend long-term anticoagulation total for 4 weeks ending on 12/18/2020 11/25/2020; patient is on long-term antibiotics recommended by ID for total 4 weeks ending on 12/18/2020 Continue wound care, wound VAC in place, disposition per surgery DC planning per case management Patient refused midline placement for long-term antibiotics will check with surgeon Dr. Herrera regarding DC planning 11/26/2020; patient is reevaluated by IR/vascular for possible angiogram tomorrow Patient also complains of vague back pain, lumbosacral spine mild L4 compression fracture age-indeterminate We will consult orthopedic History Interval history: I have seen and examined the patient at the bedside Patient's chart and medications reviewed Patient was complaining of back pain, x-ray lumbosacral spine findings at L4 reviewed Consulted orthopedic surgeon, consider MRI spine to rule out osteomyelitis if needed Patient complains of severe pain at the site of TMA amputation of the right foot Wound VAC in place Vital signs noted Hospitalist Physical - Constitutional Vitals: Temp Pulse Resp BP Pulse Ox 98.3 F 89 18 147/100 96 11/26/20 15:54 11/26/20 15:54 11/26/20 15:54 11/26/20 15:54 11/26/20 15:54 General appearance: Present: no acute distress, well-nourished - EENT Eyes: Present: PERRL, EOM intact - Neck Neck: Present: supple, normal ROM - Respiratory Respiratory effort: normal Respiratory: bilateral: diminished, negative: rales, rhonchi, wheezing - Cardiovascular Rhythm: regular Heart Sounds: Present: S1 & S2 - Extremities Extremities: no ischemia, No edema, abnormal (Surgical dressing and wound VAC in place right foot) - Abdominal General gastrointestinal: soft, non-tender, non-distended, normal bowel sounds - Integumentary Integumentary: Present: clear, warm - Psychiatric Psychiatric: appropriate mood/affect, cooperative - Neurologic Neurologic: CNII-XII intact, moves all extremities Results - Labs CBC & Chem 7: 11/26/20 06:42 11/26/20 06:42 Labs: Laboratory Last Values WBC 15.2 K/mm3 (4.5-11.0) H 11/26/20 06:42 RBC 3.48 M/mm3 (3.65-5.03) L 11/26/20 06:42 Hgb 8.3 gm/dl (11.8-15.2) L 11/26/20 06:42 Hct 26.9 % (35.5-45.6) L 11/26/20 06:42 MCV 77 fl (84-94) L 11/26/20 06:42 MCH 24 pg (28-32) L 11/26/20 06:42 MCHC 31 % (32-34) L 11/26/20 06:42 RDW 19.2 % (13.2-15.2) H 11/26/20 06:42 Plt Count 585 K/mm3 (140-440) H 11/26/20 06:42 Lymph % (Auto) 14.5 % (13.4-35.0) 11/26/20 06:42 Emmet % (Auto) 7.9 % (0.0-7.3) H 11/26/20 06:42 Eos % (Auto) 1.4 % (0.0-4.3) 11/26/20 06:42 Baso % (Auto) 0.7 % (0.0-1.8) 11/26/20 06:42 Lymph # (Auto) 2.2 K/mm3 (1.2-5.4) 11/26/20 06:42 Emmet # (Auto) 1.2 K/mm3 (0.0-0.8) H 11/26/20 06:42 Eos # (Auto) 0.2 K/mm3 (0.0-0.4) 11/26/20 06:42 Baso # (Auto) 0.1 K/mm3 (0.0-0.1) 11/26/20 06:42 Add Manual Diff Complete 11/22/20 05:26 Total Counted 100 11/22/20 05:26 Seg Neutrophils % 75.5 % (40.0-70.0) H 11/26/20 06:42 Seg Neuts % (Manual) 76.0 % (40.0-70.0) H 11/22/20 05:26 Lymphocytes % (Manual) 13.0 % (13.4-35.0) L 11/22/20 05:26 Monocytes % (Manual) 7.0 % (0.0-7.3) 11/22/20 05:26 Eosinophils % (Manual) 2.0 % (0.0-4.3) 11/22/20 05:26 Metamyelocytes % 1.0 % 11/22/20 05:26 Myelocytes % 1.0 % 11/22/20 05:26 Nucleated RBC % Not Reportable 11/22/20 05:26 Seg Neutrophils # 11.5 K/mm3 (1.8-7.7) H 11/26/20 06:42 Seg Neutrophils # Man 16.0 K/mm3 (1.8-7.7) H 11/22/20 05:26 Band Neutrophils # 0.0 K/mm3 11/22/20 05:26 Lymphocytes # (Manual) 2.7 K/mm3 (1.2-5.4) 11/22/20 05:26 Abs React Lymphs (Man) 0.0 K/mm3 11/22/20 05:26 Monocytes # (Manual) 1.5 K/mm3 (0.0-0.8) H 11/22/20 05:26 Eosinophils # (Manual) 0.4 K/mm3 (0.0-0.4) 11/22/20 05:26 Basophils # (Manual) 0.0 K/mm3 (0.0-0.1) 11/22/20 05:26 Metamyelocytes # 0.2 K/mm3 11/22/20 05:26 Myelocytes # 0.2 K/mm3 11/22/20 05:26 Promyelocytes # 0.0 K/mm3 11/22/20 05:26 Blast Cells # 0.0 K/mm3 11/22/20 05:26 WBC Morphology Not Reportable 11/22/20 05:26 Hypersegmented Neuts Not Reportable 11/22/20 05:26 Hyposegmented Neuts Not Reportable 11/22/20 05:26 Hypogranular Neuts Not Reportable 11/22/20 05:26 Smudge Cells Not Reportable 11/22/20 05:26 Toxic Granulation Not Reportable 11/22/20 05:26 Toxic Vacuolation Not Reportable 11/22/20 05:26 Dohle Bodies Not Reportable 11/22/20 05:26 Pelger-Huet Anomaly Not Reportable 11/22/20 05:26 Shayla Rods Not Reportable 11/22/20 05:26 Platelet Estimate Consistent w auto 11/22/20 05:26 Clumped Platelets Not Reportable 11/22/20 05:26 Plt Clumps, EDTA Not Reportable 11/22/20 05:26 Large Platelets Not Reportable 11/22/20 05:26 Giant Platelets Not Reportable 11/22/20 05:26 Platelet Satelliting Not Reportable 11/22/20 05:26 Plt Morphology Comment Not Reportable 11/22/20 05:26 RBC Morphology Not Reportable 11/22/20 05:26 Dimorphic RBCs Not Reportable 11/22/20 05:26 Polychromasia Not Reportable 11/22/20 05:26 Hypochromasia 1+ 11/22/20 05:26 Poikilocytosis Not Reportable 11/22/20 05:26 Anisocytosis Not Reportable 11/22/20 05:26 Microcytosis Not Reportable 11/22/20 05:26 Macrocytosis Not Reportable 11/22/20 05:26 Spherocytes Not Reportable 11/22/20 05:26 Pappenheimer Bodies Not Reportable 11/22/20 05:26 Sickle Cells Not Reportable 11/22/20 05:26 Target Cells Rare 11/22/20 05:26 Tear Drop Cells Not Reportable 11/22/20 05:26 Ovalocytes Not Reportable 11/22/20 05:26 Helmet Cells Not Reportable 11/22/20 05:26 Brock-Stickney Bodies Not Reportable 11/22/20 05:26 Breda Rings Not Reportable 11/22/20 05:26 Ricky Cells Not Reportable 11/22/20 05:26 Bite Cells Not Reportable 11/22/20 05:26 Crenated Cell Not Reportable 11/22/20 05:26 Elliptocytes Not Reportable 11/22/20 05:26 Acanthocytes (Spur) Not Reportable 11/22/20 05:26 Rouleaux Not Reportable 11/22/20 05:26 Hemoglobin C Crystals Not Reportable 11/22/20 05:26 Schistocytes Not Reportable 11/22/20 05:26 Malaria parasites Not Reportable 11/22/20 05:26 Cristhian Bodies Not Reportable 11/22/20 05:26 Hem Pathologist Commnt No 11/22/20 05:26 PT 15.1 Sec. (12.2-14.9) H 11/16/20 10:15 INR 1.19 (0.87-1.13) H 11/16/20 10:15 APTT 37.0 Sec. (24.2-36.6) H 11/16/20 10:15 VBG pH 7.332 (7.320-7.420) 11/16/20 10:15 Sodium 134 mmol/L (137-145) L 11/26/20 06:42 Potassium 4.7 mmol/L (3.6-5.0) 11/26/20 06:42 Chloride 104.9 mmol/L (98-107) 11/26/20 06:42 Carbon Dioxide 20 mmol/L (22-30) L 11/26/20 06:42 Anion Gap 14 mmol/L 11/26/20 06:42 BUN 23 mg/dL (9-20) H 11/26/20 06:42 Creatinine 3.6 mg/dL (0.8-1.3) H 11/26/20 06:42 Estimated GFR 22 ml/min 11/26/20 06:42 BUN/Creatinine Ratio 6 % 11/26/20 06:42 Glucose 134 mg/dL (75-100) H 11/26/20 06:42 POC Glucose 121 mg/dL (70-105) H 11/26/20 11:52 Lactic Acid 1.00 mmol/L (0.7-2.0) 11/17/20 05:10 Calcium 8.7 mg/dL (8.4-10.2) 11/26/20 06:42 Magnesium 2.00 mg/dL (1.7-2.3) 11/16/20 10:15 Total Bilirubin 0.30 mg/dL (0.1-1.2) 11/26/20 06:42 Direct Bilirubin 0.5 mg/dL (0-0.2) H 11/16/20 10:15 Indirect Bilirubin 0.2 mg/dL 11/16/20 10:15 AST 28 units/L (5-40) 11/26/20 06:42 ALT 24 units/L (7-56) 11/26/20 06:42 Alkaline Phosphatase 215 units/L (35-129) H 11/26/20 06:42 Total Creatine Kinase 138 units/L (55-170) 11/16/20 10:15 Total Protein 7.5 g/dL (6.3-8.2) 11/26/20 06:42 Albumin 2.7 g/dL (3.9-5) L 11/26/20 06:42 Albumin/Globulin Ratio 0.6 % 11/26/20 06:42 Vancomycin Trough 9.8 ug/mL (5.0-20.0) 11/18/20 10:10 Random Vancomycin 6.1 ug/mL (0-40.0) 11/21/20 04:45 Microbiology: Microbiology 11/20/20 15:00 Peripheral/Venous Blood Culture - Final NO GROWTH AFTER 5 DAYS 11/20/20 15:00 Peripheral/Venous Blood Culture - Final NO GROWTH AFTER 5 DAYS Elder/IV: Voiding Method Urinal Active Medications - Current Medications Current Medications: Generic Name Dose Route Start Last Admin Trade Name Freq PRN Reason Stop Dose Admin Acetaminophen 650 mg 11/16/20 12:30 11/20/20 12:14 Acetaminophen 325 Mg Tab PO 650 mg Q6H PRN Administration Pain, Mild (1-3) Hydrocodone Bitart/Acetaminophen 1 each 11/16/20 12:23 11/26/20 05:31 Hydrocodone/Acetaminophen 5-325 Mg Tab PO 1 each Q6HR PRN Administration PAIN Albuterol 2.5 mg 11/16/20 12:30 Albuterol 2.5 Mg/3 Ml Nebu IH Q4HRT PRN Shortness Of Breath Benzonatate 100 mg 11/16/20 14:00 11/26/20 14:00 Benzonatate 100 Mg Cap PO 100 mg Q8HR BARRY Administration Dextrose 50 ml 11/16/20 12:30 Dextrose 50% In Water (25gm) 50 Ml Syringe IV Q30MIN PRN Hypoglycemia Protocol Famotidine 20 mg 11/19/20 10:00 11/26/20 11:05 Famotidine 20 Mg Tab PO 20 mg DAILY BARRY Administration Gabapentin 300 mg 11/16/20 14:00 11/26/20 14:00 Gabapentin 300 Mg Cap PO 300 mg Q8HR BARRY Administration Heparin Sodium (Porcine) 5,000 unit 11/16/20 14:00 11/26/20 14:00 Heparin 5,000 Unit/1 Ml Vial SUB-Q 5,000 unit Q8HR BARRY Administration Hydralazine HCl 100 mg 11/16/20 14:00 11/26/20 14:00 Hydralazine 100 Mg Tab PO 100 mg Q8HR BARRY Administration Hydralazine HCl 10 mg 11/22/20 12:57 11/26/20 05:37 Hydralazine 20 Mg/1 Ml Inj IV 10 mg Q4HR PRN Administration Blood Pressure Hydromorphone HCl 1 mg 11/22/20 13:01 11/26/20 16:40 Hydromorphone 1 Mg/1 Ml Inj IV 1 mg Q4H PRN Administration Pain , Severe (7-10) Sodium Chloride 250 mls @ 250 mls/hr 11/17/20 10:00 11/26/20 08:58 Nacl 0.9% 250ml IV 250 mls/hr Q12HR BARRY Administration Cefepime HCl 2 gm in 100 mls @ 200 mls/hr 11/20/20 15:00 11/26/20 15:26 Cefepime/Ns 2 Gm/100 Ml IV 200 mls/hr Q24H BARRY Administration Protocol Sodium Chloride 1,000 mls @ 75 mls/hr 11/26/20 13:30 11/26/20 14:10 Nacl 0.9% 1000 Ml IV 75 mls/hr DIRECT BARRY Administration Insulin Human Isoph/Insulin Regular 37 unit 11/18/20 17:00 11/26/20 08:56 Insulin Nph/Regular 70/30 Inj SUB-Q 37 unit BIDDIAB BARRY Administration Insulin Human Lispro 0 unit 11/17/20 18:00 11/26/20 13:48 Insulin Lispro 100 Unit/Ml SUB-Q Not Given Q4HR [facility] Protocol Linezolid 600 mg 11/20/20 15:00 11/26/20 11:07 Linezolid 600 Mg Tab PO 600 mg Q12HR BARRY Administration Protocol Metaxalone 800 mg 11/26/20 10:00 11/26/20 13:41 Metaxalone 800 Mg Tab PO 800 mg Q12H PRN Administration Muscle Spasm Metoprolol Tartrate 25 mg 11/16/20 22:00 11/26/20 11:05 Metoprolol Tartrate 25 Mg Tab PO 25 mg BID BARRY Administration Ondansetron HCl 4 mg 11/16/20 12:30 Ondansetron 4 Mg/2 Ml Inj IV Q8H PRN Nausea And Vomiting Pravastatin Sodium 20 mg 11/16/20 22:00 11/25/20 22:54 Pravastatin 20 Mg Tab PO 20 mg QHS BARRY Administration Sodium Chloride 10 ml 11/16/20 22:00 11/26/20 11:07 Sodium Chloride 0.9% 10 Ml Flush Syringe IV 10 ml BID BARRY Administration Sodium Chloride 10 ml 11/16/20 12:07 Sodium Chloride 0.9% 10 Ml Flush Syringe IV PRN PRN LINE FLUSH Nutrition/Malnutrition Assess - Dietary Evaluation Nutrition/Malnutrition Findings: Nutrition Notes Start: 11/23/20 12:36 Freq: Status: Active Protocol: Document 11/23/20 12:36 BOLA (Rec: 11/23/20 13:19 BOLA [id number]) Co-Sign 11/23/20 12:36 MK Nutrition Notes Need for Assessment generated from: LOS Initial or Follow up Assessment Current Diagnosis Acute Kidney Injury,CKD(stage I-IV),Sepsis,Hypertension, Heart Failure,Hyperlipidemia Other Pertinent Diagnosis s/p amputation 2 toes on R foot, R foot osteomyelitis, MRSA, PVD Current Diet Consistent CHO Labs/Tests BP 181/98 BUN 24 Cr 3.8 BG 133 Pertinent Medications Humulin 70/30 37 units Height 6 ft 3 in Weight 130 kg [place] Body Weight (kg) 89.09 BMI 35.8 Weight Status Obese Subjective/Other Information LOS screen. Pt admitted with uncontrolled diabetes. Pt also dx with obesity hypoventiliation syndrome. Per chart, wound output minimal. 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 He reported fine appetite and usual intake of two meals/day. Pt reported eating meat at every meal. Protein needs do not exceeded with current diet order. Pt agreed to try more vegetables. Pt nodded that he has had kidney diet education and did not need further education. Due to BP, added cardiac modification to diet order. Once pt is feeling better, recommend a full assessment interview to assess needs for MNT. Percent of energy/protein needs met: 100%/100% Burn Absent Trauma Absent GI Symptoms None Usual Diet at Home unknown Current % PO Good (75-100%) Minimum of two criteria No physical signs of malnutrition #1 Nutrition Diagnosis Altered nutrition-related laboratory values Etiology kidney and endocrine dysfunction As Evidenced by Signs and Symptoms pt's GFR is 21, admitted with BG 429, continuous elevated BP , and had DM-related amputation. Is patient on ventilator? No Is Patient Ambulatory and/or Out of Bed No REE-([place]-confined to bed) 2721.612 Kcal/Kg value to use for calculation 14 Approximate Energy Requirements Using 1820 kcal/Kg Calculation Used for Recommendations Kcal/kg Additional Notes Protein 0.8-0.9 g/kg AdBW 110 k-99 g Fluid: 1ml/kcal or per MD Nutrition Intervention Change Diet Order: Modify Consistent CHO with cardiac diet modifications Goal #1 Cardiac diet modification will assist BP Goal #2 Diet acceptance Anticipated Discharge Needs: Diet with consistent carbohydrates at each meal from whole grains, lean proteins, and low sodium Follow-Up By: 11/27/20 Additional Comments F/u on BP, stable intakes, and need for diet education.
[2020-11-26] MEDS: PRAVASTATIN 20 MG TAB PO SCH (22:25)
[2020-11-27] MEDS: INSULIN LISPRO 100 UNIT/ML SUB-Q SCH ×6 (02:00→22:59)
[2020-11-27] MEDS: HYDROmorphone 1 MG/1 ML INJ IV PRN ×5 (02:47→21:27)
[2020-11-27] MEDS: SODIUM CHLORIDE 0.9% 1000 ML 1,000 ML IV SCH ×2 (04:05→11:13)
[2020-11-27] MEDS: hydrALAZINE 20 MG/1 ML INJ IV PRN ×2 (04:39→16:53)
[2020-11-27] MEDS: hydrALAZINE 100 MG TAB PO SCH ×3 (05:23→21:25)
[2020-11-27] MEDS: GABAPENTIN 300 MG CAP PO SCH ×3 (05:23→21:25)
[2020-11-27] MEDS: HEPARIN 5,000 UNIT/1 ML VIAL SUB-Q SCH ×3 (05:23→21:26)
[2020-11-27] MEDS: BENZONATATE 100 MG CAP PO SCH ×3 (05:30→21:22)
[2020-11-27] MEDS ORDERED: HEPARIN/NS 5000 UNIT/500ML 1,500 ML IR ONE (08:14)
[2020-11-27] MEDS ORDERED: SODIUM CHLORIDE 0.9% 500 ML 500 ML ONE (08:29)
[2020-11-27] MEDS: MIDAZOLAM 2 MG/2 ML INJ ONE ×5 (10:07→11:15)
[2020-11-27] MEDS: fentaNYL 100 MCG/2 ML INJ ONE ×6 (10:07→12:00)
[2020-11-27] MEDS ORDERED: ceFAZolin/Water 2 GM/20 ML 2 GM/20 ML SYRINGE IV ONE ×2 (10:07→10:09)
[2020-11-27] MEDS: HEPARIN 10,000 UNITS/10 ML VIAL ONE ×4 (10:08→11:25)
[2020-11-27] MEDS: LIDOCAINE (2%) 20 MG/1 ML VIAL 20 ML MDV INFILTRATI ONE ×2 (10:08→10:24)
[2020-11-27] MEDS: hydrALAZINE 20 MG/1 ML INJ ONE ×2 (10:37→11:30)
[2020-11-27] MEDS ORDERED: VERAPAMIL 5 MG/2 ML INJ ONE (11:04)
[2020-11-27] MEDS ORDERED: NITROGLYCERIN DRIP 50 MG/250 ML BOTTLE ONE (11:04)
[2020-11-27] MEDS ORDERED: SODIUM CHLORIDE 0.9% 1000 ML 1,000 ML ONE (11:06)
[2020-11-27] MEDS: NITROGLYCERIN SYRINGE 3 ML ONE ×2 (11:27→11:39)
[2020-11-27] MEDS: INSULIN NPH/REGULAR 70/30 INJ SUB-Q SCH ×2 (11:51→16:52)
[2020-11-27] MEDS: FAMOTIDINE 20 MG TAB PO SCH (11:51)
[2020-11-27] MEDS ORDERED: ASPIRIN 81 MG TAB CHEW ONE (12:16)
[2020-11-27] MEDS ORDERED: CLOPIDOGREL 300 MG TAB ONE (12:16)
--- NOTE | 2020-11-27 12:30 | Operative Report ---
Operative Report Operative Report: EXAM: 1. Ultrasound guided access of the left common femoral artery 2. CO2 angiography of the left lower extremity 3. Selection of the abdominal aorta with CO2 angiography 4. Selection of the right external iliac artery, and superficial femoral artery with CO2 angiography 5. Selection of the anterior tibial artery with a combination of CO2 and conventional angiography 6. Selection of the dorsalis pedis with angiography 7. Atherectomy of the right anterior tibial artery with a 1.5 mm solid CSI atherectomy device with angioplasty of the entire vessel with a 3.5-4 mm nanocross angioplasty balloon 8. Angioplasty of the right proximal anterior tibial artery with a 4 mm x 80 mm angioplasty balloon and 4 mm x 150 mm iNPACT balloon 9. Closure of the left common femoral artery with a 6 Fr proglide DATE: 11/27/2020 PIPE BOWL PAINT TRIMMER: JOAQUIN GAMBLE MD INDICATION: Right lower extremity critical limb ischemia with partially healing partially nonhealing right forefoot open wound with abnormal arterial ultrasounds and nonpalpable right dorsalis pedis pulse. MEDICATIONS: Please see nursing report for full details. DEVICES: CSI 1.5 mm solid atherectomy device 3.5-4 mm x 210 mm nanocross angioplasty balloon 4 mm x 80 mm elsi angioplasty balloon 4 mm x 150 mm angioplasty balloon CONTRAST: 15 mL nonionic contrast, visipaque PROCEDURE: The risks, benefits, and alternatives were discussed with the patient; written informed consent was obtained. Specific risk of worsening underlying kidney function was discussed with the patient, but I also discussed with him that we would limit the amount of contrast used to 10 to 15 mL in order to limit any risk for kidney issue. I discussed with him that this would balance the risks with the benefits and provided an overwhelming benefit to prevent limb loss. Patient agreed. Patient's groins were prepped and draped in a sterile fashion. Ultrasound was used to identify the left common femoral artery. Under direct ultrasound guidance, the left common femoral artery was accessed with a 21-gauge micropuncture needle. 0.018 inch wire was passed into the artery. Needle was exchanged for transitional dilator. Wire was exchanged for a 0.035 inch wire. Transitional dilator was exchanged for a 5 Mongolian sheath. CO2 angiography was performed demonstrating patency of the left common femoral artery, external iliac artery, proximal superficial femoral artery, and profunda femoral artery. The puncture was appropriate, above the bifurcation and below the inferior epigastric artery. Flush catheter was used to select the abdominal aorta and CO2 angiography was performed. Catheter was then used to select the right external iliac artery, common femoral artery, superficial femoral artery, and CO2 angiography was performed. CO2 angiography demonstrated the following The infrarenal abdominal aorta was patent. The bilateral common iliac arteries, external iliac arteries, and internal iliac arteries are patent. The right common femoral artery was patent. The right profundofemoral artery was patent. The right proximal and mid superficial femoral artery are patent. The right distal superficial femoral artery has a 30% narrowing. The right [id number] popliteal artery has a 30 to 40% narrowing. The right mid knee popliteal artery has a 40 to 50% narrowing. The below the knee popliteal artery is patent. The tibioperoneal trunk has a distal 40 to 50% stenosis. The proximal portion of the peroneal artery is patent in the mid and distal portion starts to taper. The ostium of the posterior tibial artery has a 40 to 50% narrowing with the rest of the vessel patent. The common plantar artery, medial and lateral plantar artery, and some of the pedal arch is patent with some retrograde flow into the dorsalis pedis vessel which appeared patent. The anterior tibial artery had high-grade 99% narrowings throughout the entirety of the vessel with some short segment occlusions with patency of the distalmost portion of the dorsalis pedis vessel. After reviewing the imaging, I determined the patient required an intervention to assist with limb salvage. The patient was heparinized and the sheath was exchanged for a 90 cm Byron destination positioned in the right popliteal artery. Catheter was used to select the anterior tibial artery and digital subtraction angiography was performed. Wire and multiple catheters were then used to cross the anterior tibial artery and the wire and catheter passed into the dorsalis pedis artery. Digital subtraction angiography was performed confirming position. Nitroglycerin was administered. Viper wire was passed into the vessel. Atherectomy was performed of the right anterior tibial artery with a 1.5 mm solid atherectomy device. Atherectomy was performed multiple times through the anterior tibial artery on low, medium, and high settings. 3.5 mm to 4 mm tapered 210 mm Maggie cross balloon was then used to perform angioplasty from the distal anterior tibial artery to the ostium of the anterior tibial artery. Digital subtraction angiography was performed demonstrating less than 10% residual narrowing of the vessel except for the proximal anterior tibial artery where there was a dissection which was not flow-limiting with 30% residual narrowing. Repeat angioplasty was performed at this location with a 4 mm x 80 mm angioplasty balloon at 3 minutes. Repeat angiography demonstrated residual nonflow limiting dissection. Angioplasty was then performed with a 4 mm x 150 mm iNPACT balloon for 3 minutes. Digital subtraction angiography was performed demonstrating less than 20% residual narrowing with nonflow limiting dissection of the proximal anterior tibial artery, and less than 10% residual narrowing of the rest of the anterior tibial artery. There is excellent flow into the right foot. At this point, all wires, catheters, and sheaths were retracted to the left external iliac artery and the devices were removed over a 0.035 inch wire and exchanged for 6 Mongolian ProGlide. Pro-glide was then deployed achieving hemostasis. Patient tolerated the procedure well. No immediate postprocedural complication. FINDINGS: Please see procedure note above. IMPRESSION: Successful atherectomy and angioplasty of the right anterior tibial artery with procedure as described above.
--- NOTE | 2020-11-27 12:30 | Post Operative Note ---
Date of procedure: 11/27/20 Pre-op diagnosis: PVD with gangrene/PVD Post-op diagnosis: same Findings: 15 mL of nonionic contrast and CO2 Procedure: 1. Ultrasound guided access of the left common femoral artery 2. CO2 angiography of the left lower extremity 3. Selection of the abdominal aorta with CO2 angiography 4. Selection of the right external iliac artery, and superficial femoral artery with CO2 angiography 5. Selection of the anterior tibial artery with a combination of CO2 and conventional angiography 6. Selection of the dorsalis pedis with angiography 7. Atherectomy of the right anterior tibial artery with a 1.5 mm solid CSI atherectomy device with angioplasty of the entire vessel with a 3.5-4 mm nanocross angioplasty balloon 8. Angioplasty of the right proximal anterior tibial artery with a 4 mm x 80 mm angioplasty balloon and 4 mm x 150 mm iNPACT balloon 9. Closure of the left common femoral artery with a 6 Fr proglide Anesthesia: local (w/ conscious sedation) Surgeon: JOAQUIN GAMBLE Estimated blood loss: minimal Condition: stable Disposition: floor
--- NOTE | 2020-11-27 12:31 | Event Note ---
Date: 11/27/20 Before procedure, patient had a significant amount of low back pain which was unchanged. He reported this started a month ago. Revascularization went well with successful taoism of 3 vessel runoff to the right foot. Only 15 mL of nonionic contrast used which should not effect kidney function. Discussed with Dr. Torres beforehand. Will need to be on aspirin and plavix, and given anemia, recommend pantoprazole. Recommend followup in 2 weeks. Given positive blood cultures this admission, and severe back pain which started 1 month ago, recommend MRI of the lumbar spine to exclude discitis/osteomyelitis. Discussed with Dr. Hammer.
--- NOTE | 2020-11-27 12:44 | Progress Note ---
Assessment and Plan Assessment and plan: --Osteomyelitis of foot, right, acute Current Visit: Yes Status: Acute Plan to address problem: s/p partial TMA of the right foot involving the third fourth and fifth toes. Continue postop and wound care, wound VAC per surgery Physical therapy occupational therapy when patient is ready --Peripheral vascular disease Current Visit: Yes Status: Acute Plan to address problem: s/p revascularization and successful evangelical of three-vessel runoff to the right foot per vascular/IR Started aspirin and Plavix --Back pain: L4 compression fracture age-indeterminate Current Visit: Yes Status: Acute Plan to address problem: X-ray lumbosacral spine; mild L4 compression fracture age-indeterminate MRI lumbar spine, to rule out osteomyelitis Pain management, PT OT, orthopedic consult inpatient versus outpatient --Febrile illness, patient is afebrile Current Visit: Yes Status: Acute Plan to address problem: Afebrile last 24 hours, Follow cultures ID evaluated the patient, adjusted the antibiotics --Sepsis/due to osteomyelitis foot/toes Current Visit: Yes Status: Acute Plan to address problem: Status post TMA second and third right metatarsal on IV antibiotics cefepime, Flagyl and linezolid ID DC'd Flagyl advised to continue cefepime and linezolid while in hospital At discharge IV cefepime plus daptomycin for 4 weeks ending 12/18/2020 Case management to assist with home health, and home antibiotics Patient has poor understanding of the seriousness of osteomyelitis and long-term antibiotics Overall poor prognosis given his non compliance and lack of insight with regards to the disease process Strongly advised to comply with medications. --Right hip and back pain; Current Visit: Yes Status: Acute Plan to address problem: Pain medications,right hip findings reviewed No acute abnormality, patient will follow with surgeon/orthopedic L4 mild compression fracture age indeterminate, Ortho consult. --Acute on CKD progressing to stage IV Current Visit: Yes Status: Acute Plan to address problem: Due to vasomotor nephropathy avoid nephrotoxins, medications are renally dosed --h/o MRSA cellulitis Current Visit: No Status: Acute Plan to address problem: CBC, CMP, blood culture, wound culture, IV antibiotic therapy, supportive care. Continue linezolid --Metabolic acidosis Current Visit: No Status: Acute Plan to address problem: Secondary to acute on chronic kidney disease Nephrology following --Diabetes mellitus with hyperglycemia Current Visit: No Status: Chronic Plan to address problem: Accu-Chek sliding scale coverage ADA diet Insulin as needed -- HLD (hyperlipidemia) Current Visit: No Status: Chronic Plan to address problem: Lipid panel, statin therapy, supportive care. Low-cholesterol diet, --hypertension Current Visit: No Status: Chronic Plan to address problem: continue antihypertensives Adjust blood pressure medication -- DVT prophylaxis Current Visit: Yes Status: Acute Plan to address problem: Heparin subcu Continue wound care. PT OT when patient is able to tolerate DC planning per case management ID recommended long-term antibiotics for total of 4 weeks Requested midline placement, discharge when cleared by surgery Plan of care reviewed with the patient and his nurse Will follow MRI findings, follow Ortho evaluation and recommendations 11/20/2020; patient is febrile T-max 102 F, patient is on empiric antibiotics, del valle culture sent, ID consulted For choice and duration of antibiotics., Will request PT and patient is able to tolerate physical therapy per surgeon 11/21/2020; patient feels slightly better continues to have severe pain, asking for more pain medications Vital signs reviewed, wound VAC applied to the right foot surgical wound. 11/22/2020; patient complains of some right hip pain and low back pain No history of fall, patient gives history of back surgery Will check x-ray hip and back 11/23/2020; hip x-ray no acute abnormality, lumbosacral spine x-ray all changes Patient need to follow-up with orthopedic surgeon upon discharge Continue antibiotics, wound care, follow surgery recommendations 11/24/2020; patient is sleeping, nurse reports that patient complains of pain On pain medications, antibiotics, surgery and ID following ID recommend long-term anticoagulation total for 4 weeks ending on 12/18/2020 11/25/2020; patient is on long-term antibiotics recommended by ID for total 4 weeks ending on 12/18/2020 Continue wound care, wound VAC in place, disposition per surgery DC planning per case management Patient refused midline placement for long-term antibiotics will check with celena Herrera regarding DC planning 11/26/2020; patient is reevaluated by IR/vascular for possible angiogram tomorrow Patient also complains of vague back pain, lumbosacral spine mild L4 compression fracture age-indeterminate We will consult orthopedic 11/27/2020; patient had revascularization procedure per vascular in/IR started on aspirin and Plavix Also requested MRI lumbar spine to rule out osteomyelitis History Interval history: I have seen and examined the patient in his room this morning Patient underwent revascularization and successful evangelical of three-vessel runoff to the right foot per vascular/IR Started on aspirin and Plavix, and follow-up with vascular in 2 weeks Patient continues to have back pain, lumbar spine findings of L4 reviewed We will check MRI lumbar spine to rule out osteomyelitis Patient is already on antibiotics ID is following Vital signs reviewed Hospitalist Physical - Constitutional Vitals: Temp Pulse Resp BP Pulse Ox 98.5 F 91 H 20 120/59 98 11/27/20 07:36 11/27/20 07:36 11/27/20 07:36 11/27/20 07:36 11/27/20 07:36 General appearance: Present: no acute distress, well-nourished - EENT Eyes: Present: PERRL, EOM intact - Neck Neck: Present: supple, normal ROM - Respiratory Respiratory effort: normal Respiratory: bilateral: diminished, rhonchi, negative: rales, wheezing - Cardiovascular Rhythm: regular Heart Sounds: Present: S1 & S2 - Extremities Extremities: no ischemia, No edema, abnormal (Right foot surgical wound dressing in place, wound VAC in place mild edema) - Abdominal General gastrointestinal: soft, non-tender, non-distended, normal bowel sounds - Integumentary Integumentary: Present: clear, warm - Psychiatric Psychiatric: appropriate mood/affect, cooperative - Neurologic Neurologic: moves all extremities Results - Labs CBC & Chem 7: 11/26/20 06:42 11/26/20 06:42 Labs: Laboratory Last Values WBC 15.2 K/mm3 (4.5-11.0) H 11/26/20 06:42 RBC 3.48 M/mm3 (3.65-5.03) L 11/26/20 06:42 Hgb 8.3 gm/dl (11.8-15.2) L 11/26/20 06:42 Hct 26.9 % (35.5-45.6) L 11/26/20 06:42 MCV 77 fl (84-94) L 11/26/20 06:42 MCH 24 pg (28-32) L 11/26/20 06:42 MCHC 31 % (32-34) L 11/26/20 06:42 RDW 19.2 % (13.2-15.2) H 11/26/20 06:42 Plt Count 585 K/mm3 (140-440) H 11/26/20 06:42 Lymph % (Auto) 14.5 % (13.4-35.0) 11/26/20 06:42 Power % (Auto) 7.9 % (0.0-7.3) H 11/26/20 06:42 Eos % (Auto) 1.4 % (0.0-4.3) 11/26/20 06:42 Baso % (Auto) 0.7 % (0.0-1.8) 11/26/20 06:42 Lymph # (Auto) 2.2 K/mm3 (1.2-5.4) 11/26/20 06:42 Power # (Auto) 1.2 K/mm3 (0.0-0.8) H 11/26/20 06:42 Eos # (Auto) 0.2 K/mm3 (0.0-0.4) 11/26/20 06:42 Baso # (Auto) 0.1 K/mm3 (0.0-0.1) 11/26/20 06:42 Add Manual Diff Complete 11/22/20 05:26 Total Counted 100 11/22/20 05:26 Seg Neutrophils % 75.5 % (40.0-70.0) H 11/26/20 06:42 Seg Neuts % (Manual) 76.0 % (40.0-70.0) H 11/22/20 05:26 Lymphocytes % (Manual) 13.0 % (13.4-35.0) L 11/22/20 05:26 Monocytes % (Manual) 7.0 % (0.0-7.3) 11/22/20 05:26 Eosinophils % (Manual) 2.0 % (0.0-4.3) 11/22/20 05:26 Metamyelocytes % 1.0 % 11/22/20 05:26 Myelocytes % 1.0 % 11/22/20 05:26 Nucleated RBC % Not Reportable 11/22/20 05:26 Seg Neutrophils # 11.5 K/mm3 (1.8-7.7) H 11/26/20 06:42 Seg Neutrophils # Man 16.0 K/mm3 (1.8-7.7) H 11/22/20 05:26 Band Neutrophils # 0.0 K/mm3 11/22/20 05:26 Lymphocytes # (Manual) 2.7 K/mm3 (1.2-5.4) 11/22/20 05:26 Abs React Lymphs (Man) 0.0 K/mm3 11/22/20 05:26 Monocytes # (Manual) 1.5 K/mm3 (0.0-0.8) H 11/22/20 05:26 Eosinophils # (Manual) 0.4 K/mm3 (0.0-0.4) 11/22/20 05:26 Basophils # (Manual) 0.0 K/mm3 (0.0-0.1) 11/22/20 05:26 Metamyelocytes # 0.2 K/mm3 11/22/20 05:26 Myelocytes # 0.2 K/mm3 11/22/20 05:26 Promyelocytes # 0.0 K/mm3 11/22/20 05:26 Blast Cells # 0.0 K/mm3 11/22/20 05:26 WBC Morphology Not Reportable 11/22/20 05:26 Hypersegmented Neuts Not Reportable 11/22/20 05:26 Hyposegmented Neuts Not Reportable 11/22/20 05:26 Hypogranular Neuts Not Reportable 11/22/20 05:26 Smudge Cells Not Reportable 11/22/20 05:26 Toxic Granulation Not Reportable 11/22/20 05:26 Toxic Vacuolation Not Reportable 11/22/20 05:26 Dohle Bodies Not Reportable 11/22/20 05:26 Pelger-Huet Anomaly Not Reportable 11/22/20 05:26 Shayla Rods Not Reportable 11/22/20 05:26 Platelet Estimate Consistent w auto 11/22/20 05:26 Clumped Platelets Not Reportable 11/22/20 05:26 Plt Clumps, EDTA Not Reportable 11/22/20 05:26 Large Platelets Not Reportable 11/22/20 05:26 Giant Platelets Not Reportable 11/22/20 05:26 Platelet Satelliting Not Reportable 11/22/20 05:26 Plt Morphology Comment Not Reportable 11/22/20 05:26 RBC Morphology Not Reportable 11/22/20 05:26 Dimorphic RBCs Not Reportable 11/22/20 05:26 Polychromasia Not Reportable 11/22/20 05:26 Hypochromasia 1+ 11/22/20 05:26 Poikilocytosis Not Reportable 11/22/20 05:26 Anisocytosis Not Reportable 11/22/20 05:26 Microcytosis Not Reportable 11/22/20 05:26 Macrocytosis Not Reportable 11/22/20 05:26 Spherocytes Not Reportable 11/22/20 05:26 Pappenheimer Bodies Not Reportable 11/22/20 05:26 Sickle Cells Not Reportable 11/22/20 05:26 Target Cells Rare 11/22/20 05:26 Tear Drop Cells Not Reportable 11/22/20 05:26 Ovalocytes Not Reportable 11/22/20 05:26 Helmet Cells Not Reportable 11/22/20 05:26 Brock-Lostant Bodies Not Reportable 11/22/20 05:26 Ward Rings Not Reportable 11/22/20 05:26 Ricky Cells Not Reportable 11/22/20 05:26 Bite Cells Not Reportable 11/22/20 05:26 Crenated Cell Not Reportable 11/22/20 05:26 Elliptocytes Not Reportable 11/22/20 05:26 Acanthocytes (Spur) Not Reportable 11/22/20 05:26 Rouleaux Not Reportable 11/22/20 05:26 Hemoglobin C Crystals Not Reportable 11/22/20 05:26 Schistocytes Not Reportable 11/22/20 05:26 Malaria parasites Not Reportable 11/22/20 05:26 Cristhian Bodies Not Reportable 11/22/20 05:26 Hem Pathologist Commnt No 11/22/20 05:26 PT 15.1 Sec. (12.2-14.9) H 11/16/20 10:15 INR 1.19 (0.87-1.13) H 11/16/20 10:15 APTT 37.0 Sec. (24.2-36.6) H 11/16/20 10:15 VBG pH 7.332 (7.320-7.420) 11/16/20 10:15 Sodium 134 mmol/L (137-145) L 11/26/20 06:42 Potassium 4.7 mmol/L (3.6-5.0) 11/26/20 06:42 Chloride 104.9 mmol/L (98-107) 11/26/20 06:42 Carbon Dioxide 20 mmol/L (22-30) L 11/26/20 06:42 Anion Gap 14 mmol/L 11/26/20 06:42 BUN 23 mg/dL (9-20) H 11/26/20 06:42 Creatinine 3.6 mg/dL (0.8-1.3) H 11/26/20 06:42 Estimated GFR 22 ml/min 11/26/20 06:42 BUN/Creatinine Ratio 6 % 11/26/20 06:42 Glucose 134 mg/dL (75-100) H 11/26/20 06:42 POC Glucose 96 mg/dL (70-105) 11/27/20 07:26 Lactic Acid 1.00 mmol/L (0.7-2.0) 11/17/20 05:10 Calcium 8.7 mg/dL (8.4-10.2) 11/26/20 06:42 Magnesium 2.00 mg/dL (1.7-2.3) 11/16/20 10:15 Total Bilirubin 0.30 mg/dL (0.1-1.2) 11/26/20 06:42 Direct Bilirubin 0.5 mg/dL (0-0.2) H 11/16/20 10:15 Indirect Bilirubin 0.2 mg/dL 11/16/20 10:15 AST 28 units/L (5-40) 11/26/20 06:42 ALT 24 units/L (7-56) 11/26/20 06:42 Alkaline Phosphatase 215 units/L (35-129) H 11/26/20 06:42 Total Creatine Kinase 138 units/L (55-170) 11/16/20 10:15 Total Protein 7.5 g/dL (6.3-8.2) 11/26/20 06:42 Albumin 2.7 g/dL (3.9-5) L 11/26/20 06:42 Albumin/Globulin Ratio 0.6 % 11/26/20 06:42 Vancomycin Trough 9.8 ug/mL (5.0-20.0) 11/18/20 10:10 Random Vancomycin 6.1 ug/mL (0-40.0) 11/21/20 04:45 Elder/IV: Voiding Method Urinal Active Medications - Current Medications Current Medications: Generic Name Dose Route Start Last Admin Trade Name Freq PRN Reason Stop Dose Admin Acetaminophen 650 mg 11/16/20 12:30 11/20/20 12:14 Acetaminophen 325 Mg Tab PO 650 mg Q6H PRN Administration Pain, Mild (1-3) Hydrocodone Bitart/Acetaminophen 1 each 11/16/20 12:23 11/26/20 05:31 Hydrocodone/Acetaminophen 5-325 Mg Tab PO 1 each Q6HR PRN Administration PAIN Albuterol 2.5 mg 11/16/20 12:30 Albuterol 2.5 Mg/3 Ml Nebu IH Q4HRT PRN Shortness Of Breath Aspirin 81 mg 11/28/20 10:00 Aspirin Ec 81 Mg Tab PO QDAY [facility] Benzonatate 100 mg 11/16/20 14:00 11/27/20 05:30 Benzonatate 100 Mg Cap PO Not Given Q8HR [facility] Clopidogrel Bisulfate 75 mg 11/28/20 10:00 Clopidogrel 75 Mg Tab PO QDAY [facility] Dextrose 50 ml 11/16/20 12:30 Dextrose 50% In Water (25gm) 50 Ml Syringe IV Q30MIN PRN Hypoglycemia Protocol Famotidine 20 mg 11/19/20 10:00 11/27/20 11:51 Famotidine 20 Mg Tab PO Not Given DAILY [facility] Gabapentin 300 mg 11/16/20 14:00 11/27/20 05:23 Gabapentin 300 Mg Cap PO 300 mg Q8HR [facility] Administration Heparin Sodium (Porcine) 5,000 unit 11/16/20 14:00 11/27/20 05:23 Heparin 5,000 Unit/1 Ml Vial SUB-Q 5,000 unit Q8HR [facility] Administration Hydralazine HCl 100 mg 11/16/20 14:00 11/27/20 05:23 Hydralazine 100 Mg Tab PO 100 mg Q8HR [facility] Administration Hydralazine HCl 10 mg 11/22/20 12:57 11/27/20 04:39 Hydralazine 20 Mg/1 Ml Inj IV 10 mg Q4HR PRN Administration Blood Pressure Hydromorphone HCl 1 mg 11/27/20 12:33 Hydromorphone 1 Mg/1 Ml Inj IV Q2H PRN Pain , Severe (7-10) Sodium Chloride 250 mls @ 250 mls/hr 11/17/20 10:00 11/26/20 08:58 Nacl 0.9% 250ml IV 250 mls/hr Q12HR [facility] Administration Cefepime HCl 2 gm in 100 mls @ 200 mls/hr 11/20/20 15:00 11/26/20 15:26 Cefepime/Ns 2 Gm/100 Ml IV 12/18/20 15:29 200 mls/hr Q24H [facility] Administration Protocol Sodium Chloride 1,000 mls @ 75 mls/hr 11/26/20 13:30 11/27/20 11:13 Nacl 0.9% 1000 Ml IV 75 mls/hr DIRECT [facility] Administration Insulin Human Isoph/Insulin Regular 37 unit 11/18/20 17:00 11/27/20 11:51 Insulin Nph/Regular 70/30 Inj SUB-Q Not Given BIDDIAB [facility] Insulin Human Lispro 0 unit 11/17/20 18:00 11/27/20 11:50 Insulin Lispro 100 Unit/Ml SUB-Q Not Given Q4HR [facility] Protocol Linezolid 600 mg 11/20/20 15:00 11/26/20 22:26 Linezolid 600 Mg Tab PO 12/18/20 22:01 600 mg Q12HR [facility] Administration Protocol Metaxalone 800 mg 11/26/20 10:00 11/26/20 13:41 Metaxalone 800 Mg Tab PO 800 mg Q12H PRN Administration Muscle Spasm Metoprolol Tartrate 25 mg 11/16/20 22:00 11/26/20 22:25 Metoprolol Tartrate 25 Mg Tab PO 25 mg BID [facility] Administration Ondansetron HCl 4 mg 11/16/20 12:30 Ondansetron 4 Mg/2 Ml Inj IV Q8H PRN Nausea And Vomiting Pantoprazole Sodium 40 mg 11/28/20 07:30 Pantoprazole 40 Mg Tab PO QDAC [facility] Pravastatin Sodium 20 mg 11/16/20 22:00 11/26/20 22:25 Pravastatin 20 Mg Tab PO 20 mg QHS [facility] Administration Sodium Chloride 10 ml 11/16/20 22:00 11/26/20 22:25 Sodium Chloride 0.9% 10 Ml Flush Syringe IV 10 ml BID BARRY Administration Sodium Chloride 10 ml 11/16/20 12:07 Sodium Chloride 0.9% 10 Ml Flush Syringe IV PRN PRN LINE FLUSH Nutrition/Malnutrition Assess - Dietary Evaluation Nutrition/Malnutrition Findings: Nutrition Notes Start: 11/23/20 12:36 Freq: Status: Active Protocol: Document 11/27/20 08:28 AT (Rec: 11/27/20 08:50 AT [id number]) Co-Sign 11/27/20 08:28 LP Nutrition Notes Initial or Follow up Reassessment Current Diagnosis Acute Kidney Injury,CKD(stage I-IV),Diabetes,Sepsis, Hypertension,Heart Failure, Hyperlipidemia Other Pertinent Diagnosis s/p amputation 2 toes on R foot, R foot osteomyelitis, MRSA, PVD Current Diet NPO after midnight Labs/Tests BP 120/59 2 Na 134 BUN 23 Cr 3.6 BG 134 Pertinent Medications NS at 75 mL/hr Height 6 ft 3 in Weight 130 kg [place] Body Weight (kg) 89.09 BMI 35.8 Weight Status Obese Subjective/Other Information Follow up for BP, stable intakes, diet education needs. Pt out of room at procedure at 7:55AM. Per chart, since , pt has intakes averaging 89%. Per chart, pt is refusing HD. Will follow for additional diet education needs. Percent of energy/protein needs met: 100%/92% GI Symptoms None Current % PO Good (75-100%) Minimum of two criteria No physical signs of malnutrition #1 Nutrition Diagnosis Altered nutrition-related laboratory values As Evidenced by Signs and Symptoms pt's GFR 22, BG 134 (POC BG 96 ), BP 120/59 Diagnosis Progress(for reassessment Improved documentation) Is patient on ventilator? No Is Patient Ambulatory and/or Out of Bed No REE-([facility]-confined to bed) 2721.612 Kcal/Kg value to use for calculation 14 Approximate Energy Requirements Using 1820 kcal/Kg Calculation Used for Recommendations Kcal/kg Additional Notes PRO needs: 88-99 g (0.8-0.9 g/ kg AdBW 110kg) Fluid needs: 1 mL/kcal or per MD Nutrition Intervention Change Diet Order: Cardiac/Consistent CHO Goal #1 Control BG with Consistent CHO diet adherence Goal #2 Manage BP through cardiac diet modification Anticipated Discharge Needs: Heart-healthy, consistent CHO diet Follow-Up By: 11/28/20 Additional Comments F/U for diet education needs
[2020-11-27] MEDS: LINEZOLID 600 MG TAB PO SCH ×2 (13:11→21:25)
[2020-11-27] MEDS: METOPROLOL TARTRATE 25 MG TAB PO SCH ×2 (13:17→21:25)
--- NOTE | 2020-11-27 13:35 | Progress Note ---
Assessment and Plan Cultures: 11/16/2020 blood culture: Group B streptococcus 11/16/2020 urine culture: No growth 11/20/2020 blood culture: no growth thus far A/P: 45 year old male with history of uncontrolled diabetes mellitus, hyperlipidemia, hypertension, chronic kidney disease, obesity, peripheral vascular disease, with multiple infectious complications especially his right foot in the recent past, now readmitted with: #Sepsis secondary to right foot infection #Back pain: agree with MRI #Group B strep bacteremia: Secondary to right foot infection #Worsening right diabetic foot infection with osteomyelitis: 3rd, 4th and 5th toe TMA on 10/10/2020, now again TMA of the right second toe amputation of the distal half of the third metatarsal shaft on 11/19/2020. Previously has grown MRSA and Pseudomonas from the R foot and was treated with IV abx. #Uncontrolled diabetes mellitus #Advanced CKD: has been refusing hemodialysis. Nephrology following. #Peripheral vascular disease: s/p angiogram Recs: -continue renally dosed IV Cefepime and PO Linezolid while inpatient -OPAT orders placed for IV Cefepime + Daptomycin x 4 weeks ending 12/18/2020 via home health. Approved by insurance -overall poor prognosis given his non compliance and lack of insight with regards to the disease process -Agree with planned MRI for back pain Cathy Rodriguez MD [facility] O: [phone] F: [phone] Subjective Date of service: 11/27/20 Principal diagnosis: Right foot PVD Interval history: Afebrile, s/p revascularization. Objective - Exam Narrative Exam: Physical Exam: Constitutional: Awake. No acute distress Head, Ears, Nose: Normocephalic, atraumatic. External ears, nose normal Eyes: Conjunctivae/corneas clear. No icterus. No ptosis. Neck: Supple, no meningeal signs Cardiovascular: S1, S2 normal. Respiratory: Good air entry, clear to auscultation bilaterally GI: Soft, non-tender; bowel sounds normal. No peritoneal signs Musculoskeletal: R foot VAC + Skin: No rash or abscess Hem/Lymphatic: No palpable cervical or supraclavicular nodes. No lymphangitis Psych: flat affect Neurological: awake, no gross abnormality - Constitutional Vitals: Vital Signs Temp Pulse Resp BP Pulse Ox 97.4 F L 92 H 20 173/106 98 11/27/20 12:48 11/27/20 12:48 11/27/20 12:48 11/27/20 12:48 11/27/20 12:48 Temperature -Last 24 Hours Temperature 97.4 F Temperature 98.5 F Temperature 98.4 F Temperature 97.8 F Temperature 97.9 F Temperature 98.3 F Temperature 98.3 F - Labs CBC & Chem 7: 11/26/20 06:42 11/26/20 06:42 Labs: Abnormal lab results 11/26/20 11/27/20 Range/Units 15:55 12:49 POC Glucose 157 H 127 H (70-105) mg/dL
[2020-11-27] MEDS: CEFEPIME/NS 2 GM/100 ML 2 GM/100 ML BAG IV SCH (16:53)
[2020-11-27] MEDS: PRAVASTATIN 20 MG TAB PO SCH (21:25)
[2020-11-28] MEDS: INSULIN LISPRO 100 UNIT/ML SUB-Q SCH ×6 (02:14→23:57)
[2020-11-28] MEDS: HYDROmorphone 1 MG/1 ML INJ IV PRN ×3 (04:19→22:04)
[2020-11-28] MEDS: SODIUM CHLORIDE 0.9% 1000 ML 1,000 ML IV SCH (04:24)
[2020-11-28] MEDS: GABAPENTIN 300 MG CAP PO SCH ×3 (06:13→22:01)
[2020-11-28] MEDS: HEPARIN 5,000 UNIT/1 ML VIAL SUB-Q SCH ×3 (06:14→22:07)
[2020-11-28] MEDS: hydrALAZINE 100 MG TAB PO SCH ×3 (06:14→22:01)
[2020-11-28] MEDS: BENZONATATE 100 MG CAP PO SCH ×3 (06:17→23:58)
[2020-11-28] MEDS: PANTOPRAZOLE 40 MG TAB PO SCH (07:23)
--- NOTE | 2020-11-28 08:40 | Progress Note ---
Assessment and Plan Assessment and plan: --Back pain: L4 compression fracture age-indeterminate Current Visit: Yes Status: Acute Plan to address problem: X-ray lumbosacral spine; mild L4 compression fracture age-indeterminate MRI lumbar spine, to rule out osteomyelitis Pain management, PT OT, orthopedic consult --Acute osteomyelitis of right foot toes, Current Visit: Yes Status: Acute Plan to address problem: s/p partial TMA of the right foot involving the third fourth and fifth toes. Continue postop and wound care, wound VAC per surgery Physical therapy occupational therapy when patient is ready --Peripheral vascular disease Current Visit: Yes Status: Acute Plan to address problem: s/p revascularization and successful christian of three-vessel runoff to the right foot per vascular/IR Started aspirin and Plavix --Febrile illness, POA; resolved Current Visit: Yes Status: Acute Plan to address problem: Afebrile last 24 hours, Follow cultures ID evaluated the patient, adjusted the antibiotics --Sepsis/due to osteomyelitis foot/toes Current Visit: Yes Status: Acute Plan to address problem: Status post TMA second and third right metatarsal on IV antibiotics cefepime, Flagyl and linezolid ID DC'd Flagyl advised to continue cefepime and linezolid while in hospital At discharge IV cefepime plus daptomycin for 4 weeks ending 12/18/2020 Case management to assist with home health, and home antibiotics Patient has poor understanding of the seriousness of osteomyelitis and long-term antibiotics Overall poor prognosis given his non compliance and lack of insight with regards to the disease process Strongly advised to comply with medications. --Right hip and back pain; Current Visit: Yes Status: Acute Plan to address problem: Pain medications,right hip findings reviewed No acute abnormality, patient will follow with surgeon/orthopedic L4 mild compression fracture age indeterminate, Ortho consult. --Acute on CKD progressing to stage IV Current Visit: Yes Status: Acute Plan to address problem: Due to vasomotor nephropathy avoid nephrotoxins, medications are renally dosed --h/o MRSA cellulitis Current Visit: No Status: Acute Plan to address problem: CBC, CMP, blood culture, wound culture, IV antibiotic therapy, supportive care. Continue linezolid --Metabolic acidosis Current Visit: No Status: Acute Plan to address problem: Secondary to acute on chronic kidney disease Nephrology following --Diabetes mellitus with hyperglycemia Current Visit: No Status: Chronic Plan to address problem: Accu-Chek sliding scale coverage ADA diet Insulin as needed -- HLD (hyperlipidemia) Current Visit: No Status: Chronic Plan to address problem: Lipid panel, statin therapy, supportive care. Low-cholesterol diet, --hypertension Current Visit: No Status: Chronic Plan to address problem: continue antihypertensives Adjust blood pressure medication -- DVT prophylaxis Current Visit: Yes Status: Acute Plan to address problem: Heparin subcu Continue wound care. PT OT when patient is able to tolerate DC planning per case management ID recommended long-term antibiotics for total of 4 weeks Requested midline placement, discharge when cleared by surgery Plan of care reviewed with the patient and his nurse Will follow MRI findings, follow Ortho evaluation and recommendations 11/20/2020; patient is febrile T-max 102 F, patient is on empiric antibiotics, del valle culture sent, ID consulted For choice and duration of antibiotics., Will request PT and patient is able to tolerate physical therapy per surgeon 11/21/2020; patient feels slightly better continues to have severe pain, asking for more pain medications Vital signs reviewed, wound VAC applied to the right foot surgical wound. 11/22/2020; patient complains of some right hip pain and low back pain No history of fall, patient gives history of back surgery Will check x-ray hip and back 11/23/2020; hip x-ray no acute abnormality, lumbosacral spine x-ray all changes Patient need to follow-up with orthopedic surgeon upon discharge Continue antibiotics, wound care, follow surgery recommendations 11/24/2020; patient is sleeping, nurse reports that patient complains of pain On pain medications, antibiotics, surgery and ID following ID recommend long-term anticoagulation total for 4 weeks ending on 12/18/2020 11/25/2020; patient is on long-term antibiotics recommended by ID for total 4 weeks ending on 12/18/2020 Continue wound care, wound VAC in place, disposition per surgery DC planning per case management Patient refused midline placement for long-term antibiotics will check with surgeon Dr. Herrera regarding DC planning 11/26/2020; patient is reevaluated by IR/vascular for possible angiogram tomorrow Patient also complains of vague back pain, lumbosacral spine mild L4 compression fracture age-indeterminate We will consult orthopedic 11/27/2020; patient had revascularization procedure per vascular in/IR started on aspirin and Plavix Also requested MRI lumbar spine to rule out osteomyelitis 11/28/2028; patient refused MRI lumbar spine and also some medications Awaiting Ortho evaluation recommendations, continue current management History Interval history: I have seen and examined the patient at the bedside Patient's chart and medications reviewed Patient is very anxious and upset Complains of back pain Scheduled for MRI of lumbar spine to rule out osteomyelitis Vital signs reviewed Hospitalist Physical - Constitutional Vitals: Temp Pulse Resp BP Pulse Ox 98.2 F 83 18 167/104 94 11/28/20 04:53 11/28/20 04:53 11/28/20 04:53 11/28/20 04:53 11/28/20 04:53 General appearance: Present: no acute distress, well-nourished - EENT Eyes: Present: PERRL, EOM intact - Neck Neck: Present: supple, normal ROM - Respiratory Respiratory effort: normal Respiratory: bilateral: diminished, negative: rales, rhonchi, wheezing - Cardiovascular Rhythm: regular Heart Sounds: Present: S1 & S2 - Extremities Extremities: no ischemia, No edema, abnormal (Right foot TMA, wound VAC, surgical dressing in place) - Abdominal General gastrointestinal: soft, non-tender, non-distended, normal bowel sounds - Integumentary Integumentary: Present: clear, warm - Psychiatric Psychiatric: appropriate mood/affect, cooperative, other (Anxious) - Neurologic Neurologic: moves all extremities Results - Labs CBC & Chem 7: 11/26/20 06:42 11/26/20 06:42 Labs: Laboratory Last Values WBC 15.2 K/mm3 (4.5-11.0) H 11/26/20 06:42 RBC 3.48 M/mm3 (3.65-5.03) L 11/26/20 06:42 Hgb 8.3 gm/dl (11.8-15.2) L 11/26/20 06:42 Hct 26.9 % (35.5-45.6) L 11/26/20 06:42 MCV 77 fl (84-94) L 11/26/20 06:42 MCH 24 pg (28-32) L 11/26/20 06:42 MCHC 31 % (32-34) L 11/26/20 06:42 RDW 19.2 % (13.2-15.2) H 11/26/20 06:42 Plt Count 585 K/mm3 (140-440) H 11/26/20 06:42 Lymph % (Auto) 14.5 % (13.4-35.0) 11/26/20 06:42 Long % (Auto) 7.9 % (0.0-7.3) H 11/26/20 06:42 Eos % (Auto) 1.4 % (0.0-4.3) 11/26/20 06:42 Baso % (Auto) 0.7 % (0.0-1.8) 11/26/20 06:42 Lymph # (Auto) 2.2 K/mm3 (1.2-5.4) 11/26/20 06:42 Long # (Auto) 1.2 K/mm3 (0.0-0.8) H 11/26/20 06:42 Eos # (Auto) 0.2 K/mm3 (0.0-0.4) 11/26/20 06:42 Baso # (Auto) 0.1 K/mm3 (0.0-0.1) 11/26/20 06:42 Add Manual Diff Complete 11/22/20 05:26 Total Counted 100 11/22/20 05:26 Seg Neutrophils % 75.5 % (40.0-70.0) H 11/26/20 06:42 Seg Neuts % (Manual) 76.0 % (40.0-70.0) H 11/22/20 05:26 Lymphocytes % (Manual) 13.0 % (13.4-35.0) L 11/22/20 05:26 Monocytes % (Manual) 7.0 % (0.0-7.3) 11/22/20 05:26 Eosinophils % (Manual) 2.0 % (0.0-4.3) 11/22/20 05:26 Metamyelocytes % 1.0 % 11/22/20 05:26 Myelocytes % 1.0 % 11/22/20 05:26 Nucleated RBC % Not Reportable 11/22/20 05:26 Seg Neutrophils # 11.5 K/mm3 (1.8-7.7) H 11/26/20 06:42 Seg Neutrophils # Man 16.0 K/mm3 (1.8-7.7) H 11/22/20 05:26 Band Neutrophils # 0.0 K/mm3 11/22/20 05:26 Lymphocytes # (Manual) 2.7 K/mm3 (1.2-5.4) 11/22/20 05:26 Abs React Lymphs (Man) 0.0 K/mm3 11/22/20 05:26 Monocytes # (Manual) 1.5 K/mm3 (0.0-0.8) H 11/22/20 05:26 Eosinophils # (Manual) 0.4 K/mm3 (0.0-0.4) 11/22/20 05:26 Basophils # (Manual) 0.0 K/mm3 (0.0-0.1) 11/22/20 05:26 Metamyelocytes # 0.2 K/mm3 11/22/20 05:26 Myelocytes # 0.2 K/mm3 11/22/20 05:26 Promyelocytes # 0.0 K/mm3 11/22/20 05:26 Blast Cells # 0.0 K/mm3 11/22/20 05:26 WBC Morphology Not Reportable 11/22/20 05:26 Hypersegmented Neuts Not Reportable 11/22/20 05:26 Hyposegmented Neuts Not Reportable 11/22/20 05:26 Hypogranular Neuts Not Reportable 11/22/20 05:26 Smudge Cells Not Reportable 11/22/20 05:26 Toxic Granulation Not Reportable 11/22/20 05:26 Toxic Vacuolation Not Reportable 11/22/20 05:26 Dohle Bodies Not Reportable 11/22/20 05:26 Pelger-Huet Anomaly Not Reportable 11/22/20 05:26 Shayla Rods Not Reportable 11/22/20 05:26 Platelet Estimate Consistent w auto 11/22/20 05:26 Clumped Platelets Not Reportable 11/22/20 05:26 Plt Clumps, EDTA Not Reportable 11/22/20 05:26 Large Platelets Not Reportable 11/22/20 05:26 Giant Platelets Not Reportable 11/22/20 05:26 Platelet Satelliting Not Reportable 11/22/20 05:26 Plt Morphology Comment Not Reportable 11/22/20 05:26 RBC Morphology Not Reportable 11/22/20 05:26 Dimorphic RBCs Not Reportable 11/22/20 05:26 Polychromasia Not Reportable 11/22/20 05:26 Hypochromasia 1+ 11/22/20 05:26 Poikilocytosis Not Reportable 11/22/20 05:26 Anisocytosis Not Reportable 11/22/20 05:26 Microcytosis Not Reportable 11/22/20 05:26 Macrocytosis Not Reportable 11/22/20 05:26 Spherocytes Not Reportable 11/22/20 05:26 Pappenheimer Bodies Not Reportable 11/22/20 05:26 Sickle Cells Not Reportable 11/22/20 05:26 Target Cells Rare 11/22/20 05:26 Tear Drop Cells Not Reportable 11/22/20 05:26 Ovalocytes Not Reportable 11/22/20 05:26 Helmet Cells Not Reportable 11/22/20 05:26 Brock-Glencoe Bodies Not Reportable 11/22/20 05:26 Jasper Rings Not Reportable 11/22/20 05:26 Ricky Cells Not Reportable 11/22/20 05:26 Bite Cells Not Reportable 11/22/20 05:26 Crenated Cell Not Reportable 11/22/20 05:26 Elliptocytes Not Reportable 11/22/20 05:26 Acanthocytes (Spur) Not Reportable 11/22/20 05:26 Rouleaux Not Reportable 11/22/20 05:26 Hemoglobin C Crystals Not Reportable 11/22/20 05:26 Schistocytes Not Reportable 11/22/20 05:26 Malaria parasites Not Reportable 11/22/20 05:26 Cristhian Bodies Not Reportable 11/22/20 05:26 Hem Pathologist Commnt No 11/22/20 05:26 PT 15.1 Sec. (12.2-14.9) H 11/16/20 10:15 INR 1.19 (0.87-1.13) H 11/16/20 10:15 APTT 37.0 Sec. (24.2-36.6) H 11/16/20 10:15 VBG pH 7.332 (7.320-7.420) 11/16/20 10:15 Sodium 134 mmol/L (137-145) L 11/26/20 06:42 Potassium 4.7 mmol/L (3.6-5.0) 11/26/20 06:42 Chloride 104.9 mmol/L (98-107) 11/26/20 06:42 Carbon Dioxide 20 mmol/L (22-30) L 11/26/20 06:42 Anion Gap 14 mmol/L 11/26/20 06:42 BUN 23 mg/dL (9-20) H 11/26/20 06:42 Creatinine 3.6 mg/dL (0.8-1.3) H 11/26/20 06:42 Estimated GFR 22 ml/min 11/26/20 06:42 BUN/Creatinine Ratio 6 % 11/26/20 06:42 Glucose 134 mg/dL (75-100) H 11/26/20 06:42 POC Glucose 129 mg/dL (70-105) H 11/28/20 08:25 Lactic Acid 1.00 mmol/L (0.7-2.0) 11/17/20 05:10 Calcium 8.7 mg/dL (8.4-10.2) 11/26/20 06:42 Magnesium 2.00 mg/dL (1.7-2.3) 11/16/20 10:15 Total Bilirubin 0.30 mg/dL (0.1-1.2) 11/26/20 06:42 Direct Bilirubin 0.5 mg/dL (0-0.2) H 11/16/20 10:15 Indirect Bilirubin 0.2 mg/dL 11/16/20 10:15 AST 28 units/L (5-40) 11/26/20 06:42 ALT 24 units/L (7-56) 11/26/20 06:42 Alkaline Phosphatase 215 units/L (35-129) H 11/26/20 06:42 Total Creatine Kinase 138 units/L (55-170) 11/16/20 10:15 Total Protein 7.5 g/dL (6.3-8.2) 11/26/20 06:42 Albumin 2.7 g/dL (3.9-5) L 11/26/20 06:42 Albumin/Globulin Ratio 0.6 % 11/26/20 06:42 Vancomycin Trough 9.8 ug/mL (5.0-20.0) 11/18/20 10:10 Random Vancomycin 6.1 ug/mL (0-40.0) 11/21/20 04:45 Elder/IV: Voiding Method Urinal Active Medications - Current Medications Current Medications: Generic Name Dose Route Start Last Admin Trade Name Freq PRN Reason Stop Dose Admin Acetaminophen 650 mg 11/16/20 12:30 11/20/20 12:14 Acetaminophen 325 Mg Tab PO 650 mg Q6H PRN Administration Pain, Mild (1-3) Hydrocodone Bitart/Acetaminophen 1 each 11/16/20 12:23 11/26/20 05:31 Hydrocodone/Acetaminophen 5-325 Mg Tab PO 1 each Q6HR PRN Administration PAIN Albuterol 2.5 mg 11/16/20 12:30 Albuterol 2.5 Mg/3 Ml Nebu IH Q4HRT PRN Shortness Of Breath Aspirin 81 mg 11/28/20 10:00 Aspirin Ec 81 Mg Tab PO QDAY [facility] Benzonatate 100 mg 11/16/20 14:00 11/28/20 06:17 Benzonatate 100 Mg Cap PO Not Given Q8HR BARRY Clopidogrel Bisulfate 75 mg 11/28/20 10:00 Clopidogrel 75 Mg Tab PO QDAY [facility] Dextrose 50 ml 11/16/20 12:30 Dextrose 50% In Water (25gm) 50 Ml Syringe IV Q30MIN PRN Hypoglycemia Protocol Famotidine 20 mg 11/19/20 10:00 11/27/20 11:51 Famotidine 20 Mg Tab PO Not Given DAILY [facility] Gabapentin 300 mg 11/16/20 14:00 11/28/20 06:13 Gabapentin 300 Mg Cap PO 300 mg Q8HR BARRY Administration Heparin Sodium (Porcine) 5,000 unit 11/16/20 14:00 11/28/20 06:14 Heparin 5,000 Unit/1 Ml Vial SUB-Q 5,000 unit Q8HR BARRY Administration Hydralazine HCl 100 mg 11/16/20 14:00 11/28/20 06:14 Hydralazine 100 Mg Tab PO 100 mg Q8HR BARRY Administration Hydralazine HCl 10 mg 11/22/20 12:57 11/27/20 16:53 Hydralazine 20 Mg/1 Ml Inj IV 10 mg Q4HR PRN Administration Blood Pressure Hydromorphone HCl 1 mg 11/27/20 12:33 11/28/20 04:19 Hydromorphone 1 Mg/1 Ml Inj IV 1 mg Q2H PRN Administration Pain , Severe (7-10) Sodium Chloride 250 mls @ 250 mls/hr 02/06/21 10:00 11/26/20 08:58 Nacl 0.9% 250ml IV 250 mls/hr Q12HR BARRY Administration Cefepime HCl 2 gm in 100 mls @ 200 mls/hr 11/20/20 15:00 11/27/20 16:53 Cefepime/Ns 2 Gm/100 Ml IV 12/18/20 15:29 200 mls/hr Q24H BARRY Administration Protocol Sodium Chloride 1,000 mls @ 75 mls/hr 11/26/20 13:30 11/28/20 04:24 Nacl 0.9% 1000 Ml IV 75 mls/hr DIRECT [facility]Y Administration Insulin Human Isoph/Insulin Regular 37 unit 11/18/20 17:00 11/27/20 16:52 Insulin Nph/Regular 70/30 Inj SUB-Q 37 unit BIDDIAB [facility]Y Administration Insulin Human Lispro 0 unit 11/17/20 18:00 11/28/20 02:14 Insulin Lispro 100 Unit/Ml SUB-Q Not Given Q4HR BARRY Protocol Linezolid 600 mg 11/20/20 15:00 11/27/20 21:25 Linezolid 600 Mg Tab PO 12/18/20 22:01 600 mg Q12HR BARRY Administration Protocol Metaxalone 800 mg 11/26/20 10:00 11/26/20 13:41 Metaxalone 800 Mg Tab PO 800 mg Q12H PRN Administration Muscle Spasm Metoprolol Tartrate 25 mg 11/16/20 22:00 11/27/20 21:25 Metoprolol Tartrate 25 Mg Tab PO 25 mg BID BARRY Administration Ondansetron HCl 4 mg 11/16/20 12:30 Ondansetron 4 Mg/2 Ml Inj IV Q8H PRN Nausea And Vomiting Pantoprazole Sodium 40 mg 11/28/20 07:30 11/28/20 07:23 Pantoprazole 40 Mg Tab PO 40 mg QDAC BARRY Administration Pravastatin Sodium 20 mg 11/16/20 22:00 11/27/20 21:25 Pravastatin 20 Mg Tab PO 20 mg QHS BARRY Administration Sodium Chloride 10 ml 11/16/20 22:00 11/27/20 21:26 Sodium Chloride 0.9% 10 Ml Flush Syringe IV 10 ml BID BARRY Administration Sodium Chloride 10 ml 11/16/20 12:07 Sodium Chloride 0.9% 10 Ml Flush Syringe IV PRN PRN LINE FLUSH Nutrition/Malnutrition Assess - Dietary Evaluation Nutrition/Malnutrition Findings: Nutrition Notes Start: 11/23/20 12:36 Freq: Status: Active Protocol: Document 11/27/20 08:28 AT (Rec: 11/27/20 08:50 AT [id number]) Co-Sign 11/27/20 08:28 LP Nutrition Notes Initial or Follow up Reassessment Current Diagnosis Acute Kidney Injury,CKD(stage I-IV),Diabetes,Sepsis, Hypertension,Heart Failure, Hyperlipidemia Other Pertinent Diagnosis s/p amputation 2 toes on R foot, R foot osteomyelitis, MRSA, PVD Current Diet NPO after midnight Labs/Tests BP 120/59 2/15 Na 134 BUN 23 Cr 3.6 BG 134 Pertinent Medications NS at 75 mL/hr Height 6 ft 3 in Weight 130 kg [place] Body Weight (kg) 89.09 BMI 35.8 Weight Status Obese Subjective/Other Information Follow up for BP, stable intakes, diet education needs. Pt out of room at procedure at 7:55AM. Per chart, since , pt has intakes averaging 89%. Per chart, pt is refusing HD. Will follow for additional diet education needs. Percent of energy/protein needs met: 100%/92% GI Symptoms None Current % PO Good (75-100%) Minimum of two criteria No physical signs of malnutrition #2 Nutrition Diagnosis Increased nutrient needs ( specify in comment below) Comments: protein Etiology wound healing As Evidenced by Signs and Symptoms s/p toe amputations #1 Nutrition Diagnosis Altered nutrition-related laboratory values As Evidenced by Signs and Symptoms pt's GFR 22, BG 134 (POC BG 96 ), BP 120/59 Diagnosis Progress(for reassessment Resolved documentation) Is patient on ventilator? No Is Patient Ambulatory and/or Out of Bed No REE-([facility]-confined to bed) 2721.612 Kcal/Kg value to use for calculation 14 Approximate Energy Requirements Using 1820 kcal/Kg Calculation Used for Recommendations Kcal/kg Additional Notes PRO needs: 88-99 g (0.8-0.9 g/ kg AdBW 110kg) Fluid needs: 1 mL/kcal or per MD Nutrition Intervention Change Diet Order: Cardiac/Consistent CHO Add Supplement/Snack (indicate name/kcal Glucerna daily /protein ) Provides kCal: 220 Provides Protein (gm) 10 Goal #1 Control BG with Consistent CHO diet adherence Goal #2 Manage BP through cardiac diet modification Goal #3 Wound healing Anticipated Discharge Needs: Cardiac/consistent CHO diet Follow-Up By: 11/28/20 Additional Comments F/U for diet education needs, ONS tolerance
[2020-11-28] MEDS: INSULIN NPH/REGULAR 70/30 INJ SUB-Q SCH ×2 (08:57→16:57)
--- NOTE | 2020-11-28 10:35 | Progress Note ---
Assessment and Plan - Patient Problems (1) Acute kidney injury superimposed on CKD Current Visit: Yes Status: Acute Plan to address problem: Acute kidney injury superimposed on stage IV chronic kidney disease. Labs not drawn today. Continue to monitor electrolytes and renal function. Follow-up kidney function today (2) Osteomyelitis of foot, right, acute Current Visit: Yes Status: Acute Plan to address problem: Continue antibiotics appropriately adjusted to the degree of renal function. Infectious disease arranging for outpatient antibiotics. Will need midline placed. Benefits outweigh the risk. (3) Anemia in chronic illness Current Visit: Yes Status: Chronic Plan to address problem: Continue supplements and erythropoiesis stimulating agent as indicated. Follow- up hemoglobin (4) Diabetic foot ulcer with osteomyelitis Current Visit: No Status: Acute Plan to address problem: Blood sugar management by primary attending. Continue antibiotics and local wound care (5) Hypertensive chronic kidney disease with stage 1 through stage 4 chronic kidney disease, or unspecified chronic kidney disease Current Visit: No Status: Acute Plan to address problem: Follow-up blood pressure on current medications. (6) Peripheral vascular disease Current Visit: Yes Status: Acute Plan to address problem: Status post revascularization to the right foot Subjective Date of service: 11/28/20 Principal diagnosis: Right foot PVD Interval history: Patient seen lying in bed. He has no new complaints. Patient had angiogram with revascularization to his right foot yesterday. Still has pain in his right foot. No chest pain, shortness of breath, nausea or vomiting. Objective - Exam Narrative Exam: Obese middle-aged -[place] male lying in bed in no acute distress HEENT: NCAT, Neck: Supple, no venous distention CVS: S1S2 RRR with no murmur, rub or gallop Chest: Clear to auscultation Abdomen: Protuberant, soft, nontender, no organomegaly, bowel sounds are present Extremities: No edema, dressing intact right foot Neuro: Awake, alert no focal deficits - Vital Signs Vital signs: Vital Signs - 12hr 11/27/20 11/28/20 23:22 04:53 Temperature 98.0 F 98.2 F Pulse Rate 91 H 83 Respiratory 18 18 Rate Blood Pressure 143/90 167/104 O2 Sat by Pulse 96 94 Oximetry - Lab 11/26/20 06:42 11/26/20 06:42 Most recent lab results Calcium 8.7 mg/dL (8.4-10.2) 11/26/20 06:42 Magnesium 2.00 mg/dL (1.7-2.3) 11/16/20 10:15 Medications & Allergies - Medications Allergies/Adverse Reactions: Allergies oxycodone [From Percocet] Adverse Reaction (Verified 09/24/20 18:07) Vomiting Home Medications: Home Medications Medication Instructions Recorded Confirmed Last Taken Type Pravastatin [Pravachol] 20 mg PO QHS #30 tablet 04/20/18 11/16/20 Unknown Rx Amlodipine Besylate [Norvasc] 10 mg PO DAILY 12/06/18 11/16/20 Unknown History Gabapentin 300 mg PO Q8HR 12/06/18 11/16/20 Unknown History Albuterol Mdi (or & Nicu Only) 2 puff IH QID PRN #1 inhalation 08/24/20 11/16/20 Unknown Rx [ProAir HFA Inhaler] Benzonatate [Tessalon Perles] 100 mg PO Q8HR #10 capsule 08/24/20 11/16/20 Unknown Rx DAPTOmycin 800 mg IV Q24H vial 09/28/20 11/16/20 Unknown Rx Insulin NPH/Regular [NovoLIN 70/30] 35 unit SUB-Q BIDDIAB #12 ml 09/28/20 11/16/20 Unknown Rx Metoprolol [Lopressor TAB] 25 mg PO BID #60 tablet 09/28/20 11/16/20 Unknown Rx hydrALAZINE [Apresoline TAB] 100 mg PO Q8HR #90 tab 09/28/20 11/16/20 Unknown Rx HYDROcodone/APAP 5-325 [[place] 1 each PO Q6HR PRN #14 tablet 10/13/20 11/16/20 Unknown Rx 5-325 mg TAB] Active Medications: Generic Name Dose Route Start Last Admin Trade Name Freq PRN Reason Stop Dose Admin Acetaminophen 650 mg 11/16/20 12:30 11/20/20 12:14 Acetaminophen 325 Mg Tab PO 650 mg Q6H PRN Administration Pain, Mild (1-3) Hydrocodone Bitart/Acetaminophen 1 each 11/16/20 12:23 11/26/20 05:31 Hydrocodone/Acetaminophen 5-325 Mg Tab PO 1 each Q6HR PRN Administration PAIN Albuterol 2.5 mg 11/16/20 12:30 Albuterol 2.5 Mg/3 Ml Nebu IH Q4HRT PRN Shortness Of Breath Aspirin 81 mg 11/28/20 10:00 Aspirin Ec 81 Mg Tab PO QDAY [facility] Benzonatate 100 mg 11/16/20 14:00 11/28/20 06:17 Benzonatate 100 Mg Cap PO Not Given Q8HR [facility] Clopidogrel Bisulfate 75 mg 11/28/20 10:00 Clopidogrel 75 Mg Tab PO QDAY [facility] Dextrose 50 ml 11/16/20 12:30 Dextrose 50% In Water (25gm) 50 Ml Syringe IV Q30MIN PRN Hypoglycemia Protocol Famotidine 20 mg 11/19/20 10:00 11/27/20 11:51 Famotidine 20 Mg Tab PO Not Given DAILY [facility] Gabapentin 300 mg 11/16/20 14:00 11/28/20 06:13 Gabapentin 300 Mg Cap PO 300 mg Q8HR [facility]Y Administration Heparin Sodium (Porcine) 5,000 unit 11/16/20 14:00 11/28/20 06:14 Heparin 5,000 Unit/1 Ml Vial SUB-Q 5,000 unit Q8HR [facility]Y Administration Hydralazine HCl 100 mg 11/16/20 14:00 11/28/20 06:14 Hydralazine 100 Mg Tab PO 100 mg Q8HR BARRY Administration Hydralazine HCl 10 mg 11/22/20 12:57 11/27/20 16:53 Hydralazine 20 Mg/1 Ml Inj IV 10 mg Q4HR PRN Administration Blood Pressure Hydromorphone HCl 1 mg 11/27/20 12:33 11/28/20 09:48 Hydromorphone 1 Mg/1 Ml Inj IV 1 mg Q2H PRN Administration Pain , Severe (7-10) Sodium Chloride 250 mls @ 250 mls/hr 11/17/20 10:00 11/26/20 08:58 Nacl 0.9% 250ml IV 250 mls/hr Q12HR BARRY Administration Cefepime HCl 2 gm in 100 mls @ 200 mls/hr 11/20/20 15:00 11/27/20 16:53 Cefepime/Ns 2 Gm/100 Ml IV 12/18/20 15:29 200 mls/hr Q24H BARRY Administration Protocol Sodium Chloride 1,000 mls @ 75 mls/hr 11/26/20 13:30 11/28/20 04:24 Nacl 0.9% 1000 Ml IV 75 mls/hr DIRECT BARRY Administration Insulin Human Isoph/Insulin Regular 37 unit 11/18/20 17:00 11/27/20 16:52 Insulin Nph/Regular 70/30 Inj SUB-Q 37 unit BIDDIAB BARRY Administration Insulin Human Lispro 0 unit 11/17/20 18:00 11/28/20 02:14 Insulin Lispro 100 Unit/Ml SUB-Q Not Given Q4HR BARRY Protocol Linezolid 600 mg 11/20/20 15:00 11/27/20 21:25 Linezolid 600 Mg Tab PO 12/18/20 22:01 600 mg Q12HR BARRY Administration Protocol Metaxalone 800 mg 11/26/20 10:00 11/26/20 13:41 Metaxalone 800 Mg Tab PO 800 mg Q12H PRN Administration Muscle Spasm Metoprolol Tartrate 25 mg 11/16/20 22:00 11/27/20 21:25 Metoprolol Tartrate 25 Mg Tab PO 25 mg BID BARRY Administration Ondansetron HCl 4 mg 11/16/20 12:30 Ondansetron 4 Mg/2 Ml Inj IV Q8H PRN Nausea And Vomiting Pantoprazole Sodium 40 mg 11/28/20 07:30 11/28/20 07:23 Pantoprazole 40 Mg Tab PO 40 mg QDAC BARRY Administration Pravastatin Sodium 20 mg 11/16/20 22:00 11/27/20 21:25 Pravastatin 20 Mg Tab PO 20 mg QHS BARRY Administration Sodium Chloride 10 ml 11/16/20 22:00 11/27/20 21:26 Sodium Chloride 0.9% 10 Ml Flush Syringe IV 10 ml BID BARRY Administration Sodium Chloride 10 ml 11/16/20 12:07 Sodium Chloride 0.9% 10 Ml Flush Syringe IV PRN PRN LINE FLUSH
[2020-11-28] MEDS: METOPROLOL TARTRATE 25 MG TAB PO SCH ×2 (11:00→22:00)
[2020-11-28] MEDS: CLOPIDOGREL 75 MG TAB PO SCH (11:30)
[2020-11-28] MEDS: ASPIRIN EC 81 MG TAB PO SCH (11:35)
[2020-11-28] MEDS: LINEZOLID 600 MG TAB PO SCH ×2 (11:56→22:01)
[2020-11-28] MEDS: FAMOTIDINE 20 MG TAB PO SCH (11:59)
[2020-11-28] MEDS: CEFEPIME/NS 2 GM/100 ML 2 GM/100 ML BAG IV SCH (16:00)
--- NOTE | 2020-11-28 16:32 | Progress Note ---
Assessment and Plan Cultures: 11/16/2020 blood culture: Group B streptococcus 11/16/2020 urine culture: No growth 11/20/2020 blood culture: no growth thus far A/P: 45 year old male with history of uncontrolled diabetes mellitus, hyperlipidemia, hypertension, chronic kidney disease, obesity, peripheral vascular disease, with multiple infectious complications especially his right foot in the recent past, now readmitted with: #Sepsis secondary to right foot infection #Back pain: agree with MRI #Group B strep bacteremia: Secondary to right foot infection #Worsening right diabetic foot infection with osteomyelitis: 3rd, 4th and 5th toe TMA on 10/10/2020, now again TMA of the right second toe amputation of the distal half of the third metatarsal shaft on 11/19/2020. Previously has grown MRSA and Pseudomonas from the R foot and was treated with IV abx. #Uncontrolled diabetes mellitus #Advanced CKD: has been refusing hemodialysis. Nephrology following. #Peripheral vascular disease: s/p angiogram Recs: -continue renally dosed IV Cefepime and PO Linezolid while inpatient -OPAT orders placed for IV Cefepime + Daptomycin x 4 weeks ending 12/18/2020 via home health. Approved by insurance with [facility] -overall poor prognosis given his non compliance and lack of insight with regards to the disease process -Patient being treated for osteomyelitis anyway, as long as no neurological defects okay with no MRI back Outpatient antibiotics arranged, please let me know when discharging so can rosa parikh orders. Cathy Rodriguez MD [facility] ([facility]) O: [phone] F: [phone] Subjective Date of service: 11/28/20 Principal diagnosis: Right foot PVD Interval history: Afebrile, no other acute changes. Patient refusing MRI. Objective - Exam Narrative Exam: Physical Exam: Constitutional: Awake. No acute distress Head, Ears, Nose: Normocephalic, atraumatic. Eyes: Conjunctivae/corneas clear. No icterus. No ptosis. Neck: Supple, no meningeal signs Cardiovascular: S1, S2 normal. Respiratory: Good air entry, clear to auscultation bilaterally GI: Soft, non-tender; bowel sounds normal. No peritoneal signs Musculoskeletal: R foot VAC + Skin: No rash or abscess Hem/Lymphatic: No palpable cervical or supraclavicular nodes. No lymphangitis Psych: flat affect Neurological: awake, no gross abnormality - Constitutional Vitals: Vital Signs Temp Pulse Resp BP Pulse Ox 98.7 F 92 H 18 134/82 97 11/28/20 12:00 11/28/20 12:00 11/28/20 12:00 11/28/20 12:00 11/28/20 12:00 Temperature -Last 24 Hours Temperature 98.7 F Temperature 98.2 F Temperature 98.0 F Temperature 97.8 F - Labs CBC & Chem 7: 11/26/20 06:42 11/26/20 06:42 Labs: Abnormal lab results 11/27/20 11/28/20 11/28/20 Range/Units 16:03 08:25 12:04 POC Glucose 147 H 129 H 153 H (70-105) mg/dL
[2020-11-28] MEDS: HYDROcodone/ACETAMINOPHEN 5-325 MG TAB PO PRN (16:59)
[2020-11-28] MEDS: PRAVASTATIN 20 MG TAB PO SCH (22:01)
[2020-11-29] MEDS: HYDROmorphone 1 MG/1 ML INJ IV PRN ×5 (03:18→17:38)
[2020-11-29] MEDS: INSULIN LISPRO 100 UNIT/ML SUB-Q SCH ×5 (05:10→21:04)
[2020-11-29] MEDS: GABAPENTIN 300 MG CAP PO SCH ×3 (05:12→21:28)
[2020-11-29] MEDS: hydrALAZINE 100 MG TAB PO SCH ×3 (05:12→21:27)
[2020-11-29] MEDS: HEPARIN 5,000 UNIT/1 ML VIAL SUB-Q SCH ×2 (05:13→14:39)
[2020-11-29] MEDS: BENZONATATE 100 MG CAP PO SCH ×3 (05:16→21:27)
[2020-11-29 07:37] LABS: C-Reactive Protein 6.1 mg/dL (0.00-1.30)
[2020-11-29] MEDS: SODIUM CHLORIDE 0.9% 1000 ML 1,000 ML IV SCH (08:26)
[2020-11-29] MEDS: PANTOPRAZOLE 40 MG TAB PO SCH (08:26)
[2020-11-29] MEDS: INSULIN NPH/REGULAR 70/30 INJ SUB-Q SCH ×2 (10:26→18:38)
[2020-11-29] MEDS: CLOPIDOGREL 75 MG TAB PO SCH (10:27)
[2020-11-29] MEDS: ASPIRIN EC 81 MG TAB PO SCH (10:27)
[2020-11-29] MEDS: FAMOTIDINE 20 MG TAB PO SCH (10:28)
[2020-11-29] MEDS: METOPROLOL TARTRATE 25 MG TAB PO SCH ×2 (10:28→21:28)
[2020-11-29] MEDS: LINEZOLID 600 MG TAB PO SCH ×2 (10:28→21:27)
[2020-11-29] MEDS: SODIUM CHLORIDE 0.9% 250ML 250 ML IV SCH ×2 (10:43→10:44)
--- NOTE | 2020-11-29 11:00 | Progress Note ---
Assessment and Plan Assessment and plan: --Back pain: L4 compression fracture age-indeterminate Current Visit: Yes Status: Acute Plan to address problem: X-ray lumbosacral spine; mild L4 compression fracture age-indeterminate MRI lumbar spine, to rule out osteomyelitis Pain management, PT OT, orthopedic consult --Acute osteomyelitis of right foot toes, Current Visit: Yes Status: Acute Plan to address problem: s/p partial TMA of the right foot involving the third fourth and fifth toes. Continue postop and wound care, wound VAC per surgery Physical therapy occupational therapy when patient is ready --Peripheral vascular disease Current Visit: Yes Status: Acute Plan to address problem: s/p revascularization and successful methodist of three-vessel runoff to the right foot per vascular/IR Started aspirin and Plavix --Febrile illness, POA; resolved Current Visit: Yes Status: Acute Plan to address problem: Afebrile last 24 hours, Follow cultures ID evaluated the patient, adjusted the antibiotics --Sepsis/due to osteomyelitis foot/toes Current Visit: Yes Status: Acute Plan to address problem: Status post TMA second and third right metatarsal on IV antibiotics cefepime, Flagyl and linezolid ID DC'd Flagyl advised to continue cefepime and linezolid while in hospital At discharge IV cefepime plus daptomycin for 4 weeks ending 12/18/2020 Case management to assist with home health, and home antibiotics Patient has poor understanding of the seriousness of osteomyelitis and long-term antibiotics Overall poor prognosis given his non compliance and lack of insight with regards to the disease process Strongly advised to comply with medications. --Right hip and back pain; Current Visit: Yes Status: Acute Plan to address problem: Pain medications,right hip findings reviewed No acute abnormality, patient will follow with surgeon/orthopedic L4 mild compression fracture age indeterminate, Ortho consult. --Acute on CKD progressing to stage IV Current Visit: Yes Status: Acute Plan to address problem: Due to vasomotor nephropathy avoid nephrotoxins, medications are renally dosed --h/o MRSA cellulitis Current Visit: No Status: Acute Plan to address problem: CBC, CMP, blood culture, wound culture, IV antibiotic therapy, supportive care. Continue linezolid --Metabolic acidosis Current Visit: No Status: Acute Plan to address problem: Secondary to acute on chronic kidney disease Nephrology following --Diabetes mellitus with hyperglycemia Current Visit: No Status: Chronic Plan to address problem: Accu-Chek sliding scale coverage ADA diet Insulin as needed -- HLD (hyperlipidemia) Current Visit: No Status: Chronic Plan to address problem: Lipid panel, statin therapy, supportive care. Low-cholesterol diet, --hypertension Current Visit: No Status: Chronic Plan to address problem: continue antihypertensives Adjust blood pressure medication -- DVT prophylaxis Current Visit: Yes Status: Acute Plan to address problem: Heparin subcu Continue wound care. PT OT when patient is able to tolerate DC planning per case management ID recommended long-term antibiotics for total of 4 weeks Patient has midline placed Plan of care reviewed with the patient and his nurse Will follow MRI findings, follow Ortho evaluation and recommendations Disposition per surgery. Brief history and hospital course; patient was admitted with acute osteomyelitis of the right foot third and fourth toes Surgeon has evaluated, patient underwent TMA of the both the toes, with wound VAC, ID evaluated the patient Recommend long-term antibiotics for total 4 weeks, patient received midline, disposition per surgery. Patient is fused lumbar spine MRI to rule out osteomyelitis. 11/20/2020; patient is febrile T-max 102 F, patient is on empiric antibiotics, del valle culture sent, ID consulted For choice and duration of antibiotics., Will request PT and patient is able to tolerate physical therapy per surgeon 11/21/2020; patient feels slightly better continues to have severe pain, asking for more pain medications Vital signs reviewed, wound VAC applied to the right foot surgical wound. 11/22/2020; patient complains of some right hip pain and low back pain No history of fall, patient gives history of back surgery Will check x-ray hip and back 11/23/2020; hip x-ray no acute abnormality, lumbosacral spine x-ray all changes Patient need to follow-up with orthopedic surgeon upon discharge Continue antibiotics, wound care, follow surgery recommendations 11/24/2020; patient is sleeping, nurse reports that patient complains of pain On pain medications, antibiotics, surgery and ID following ID recommend long-term anticoagulation total for 4 weeks ending on 12/18/2020 11/25/2020; patient is on long-term antibiotics recommended by ID for total 4 weeks ending on 12/18/2020 Continue wound care, wound VAC in place, disposition per surgery DC planning per case management Patient refused midline placement for long-term antibiotics will check with surgeon Dr. Herrera regarding DC planning 11/26/2020; patient is reevaluated by IR/vascular for possible angiogram tomorrow Patient also complains of vague back pain, lumbosacral spine mild L4 compression fracture age-indeterminate We will consult orthopedic 11/27/2020; patient had revascularization procedure per vascular in/IR started on aspirin and Plavix Also requested MRI lumbar spine to rule out osteomyelitis 11/28/2020; patient refused MRI lumbar spine and also some medications Awaiting Ortho evaluation recommendations, continue current management 11/29/2020; patient refused MRI of the lumbar spine, patient is receiving long- term antibiotics Disposition per surgery History Interval history: Patient feels better continues to have a lot of pain asking for pain medications Patient refused lumbar spine MRI. On long-term antibiotics for osteomyelitis Patient complains of generalized body pains Vital signs reviewed Hospitalist Physical - Constitutional Vitals: Temp Pulse Resp BP Pulse Ox 98.2 F 96 H 20 171/103 96 11/29/20 07:42 11/29/20 10:28 11/29/20 07:42 11/29/20 10:28 11/29/20 07:42 General appearance: Present: no acute distress, well-nourished - EENT Eyes: Present: PERRL, EOM intact - Neck Neck: Present: supple, normal ROM - Respiratory Respiratory effort: normal Respiratory: bilateral: diminished, negative: rales, rhonchi, wheezing - Cardiovascular Rhythm: regular Heart Sounds: Present: S1 & S2 - Extremities Extremities: abnormal (Status post TMA right third and fourth toe, surgical dressing in place, wound VAC in place) - Abdominal General gastrointestinal: soft, non-tender, non-distended, normal bowel sounds - Integumentary Integumentary: Present: clear, warm - Psychiatric Psychiatric: appropriate mood/affect, cooperative - Neurologic Neurologic: CNII-XII intact, moves all extremities Results - Labs CBC & Chem 7: 11/26/20 06:42 11/26/20 06:42 Labs: Laboratory Last Values WBC 15.2 K/mm3 (4.5-11.0) H 11/26/20 06:42 RBC 3.48 M/mm3 (3.65-5.03) L 11/26/20 06:42 Hgb 8.3 gm/dl (11.8-15.2) L 11/26/20 06:42 Hct 26.9 % (35.5-45.6) L 11/26/20 06:42 MCV 77 fl (84-94) L 11/26/20 06:42 MCH 24 pg (28-32) L 11/26/20 06:42 MCHC 31 % (32-34) L 11/26/20 06:42 RDW 19.2 % (13.2-15.2) H 11/26/20 06:42 Plt Count 585 K/mm3 (140-440) H 11/26/20 06:42 Lymph % (Auto) 14.5 % (13.4-35.0) 11/26/20 06:42 Swift % (Auto) 7.9 % (0.0-7.3) H 11/26/20 06:42 Eos % (Auto) 1.4 % (0.0-4.3) 11/26/20 06:42 Baso % (Auto) 0.7 % (0.0-1.8) 11/26/20 06:42 Lymph # (Auto) 2.2 K/mm3 (1.2-5.4) 11/26/20 06:42 Swift # (Auto) 1.2 K/mm3 (0.0-0.8) H 11/26/20 06:42 Eos # (Auto) 0.2 K/mm3 (0.0-0.4) 11/26/20 06:42 Baso # (Auto) 0.1 K/mm3 (0.0-0.1) 11/26/20 06:42 Add Manual Diff Complete 11/22/20 05:26 Total Counted 100 11/22/20 05:26 Seg Neutrophils % 75.5 % (40.0-70.0) H 11/26/20 06:42 Seg Neuts % (Manual) 76.0 % (40.0-70.0) H 11/22/20 05:26 Lymphocytes % (Manual) 13.0 % (13.4-35.0) L 11/22/20 05:26 Monocytes % (Manual) 7.0 % (0.0-7.3) 11/22/20 05:26 Eosinophils % (Manual) 2.0 % (0.0-4.3) 11/22/20 05:26 Metamyelocytes % 1.0 % 11/22/20 05:26 Myelocytes % 1.0 % 11/22/20 05:26 Nucleated RBC % Not Reportable 11/22/20 05:26 Seg Neutrophils # 11.5 K/mm3 (1.8-7.7) H 11/26/20 06:42 Seg Neutrophils # Man 16.0 K/mm3 (1.8-7.7) H 11/22/20 05:26 Band Neutrophils # 0.0 K/mm3 11/22/20 05:26 Lymphocytes # (Manual) 2.7 K/mm3 (1.2-5.4) 11/22/20 05:26 Abs React Lymphs (Man) 0.0 K/mm3 11/22/20 05:26 Monocytes # (Manual) 1.5 K/mm3 (0.0-0.8) H 11/22/20 05:26 Eosinophils # (Manual) 0.4 K/mm3 (0.0-0.4) 11/22/20 05:26 Basophils # (Manual) 0.0 K/mm3 (0.0-0.1) 11/22/20 05:26 Metamyelocytes # 0.2 K/mm3 11/22/20 05:26 Myelocytes # 0.2 K/mm3 11/22/20 05:26 Promyelocytes # 0.0 K/mm3 11/22/20 05:26 Blast Cells # 0.0 K/mm3 11/22/20 05:26 WBC Morphology Not Reportable 11/22/20 05:26 Hypersegmented Neuts Not Reportable 11/22/20 05:26 Hyposegmented Neuts Not Reportable 11/22/20 05:26 Hypogranular Neuts Not Reportable 11/22/20 05:26 Smudge Cells Not Reportable 11/22/20 05:26 Toxic Granulation Not Reportable 11/22/20 05:26 Toxic Vacuolation Not Reportable 11/22/20 05:26 Dohle Bodies Not Reportable 11/22/20 05:26 Pelger-Huet Anomaly Not Reportable 11/22/20 05:26 Shayla Rods Not Reportable 11/22/20 05:26 Platelet Estimate Consistent w auto 11/22/20 05:26 Clumped Platelets Not Reportable 11/22/20 05:26 Plt Clumps, EDTA Not Reportable 11/22/20 05:26 Large Platelets Not Reportable 11/22/20 05:26 Giant Platelets Not Reportable 11/22/20 05:26 Platelet Satelliting Not Reportable 11/22/20 05:26 Plt Morphology Comment Not Reportable 11/22/20 05:26 RBC Morphology Not Reportable 11/22/20 05:26 Dimorphic RBCs Not Reportable 11/22/20 05:26 Polychromasia Not Reportable 11/22/20 05:26 Hypochromasia 1+ 11/22/20 05:26 Poikilocytosis Not Reportable 11/22/20 05:26 Anisocytosis Not Reportable 11/22/20 05:26 Microcytosis Not Reportable 11/22/20 05:26 Macrocytosis Not Reportable 11/22/20 05:26 Spherocytes Not Reportable 11/22/20 05:26 Pappenheimer Bodies Not Reportable 11/22/20 05:26 Sickle Cells Not Reportable 11/22/20 05:26 Target Cells Rare 11/22/20 05:26 Tear Drop Cells Not Reportable 11/22/20 05:26 Ovalocytes Not Reportable 11/22/20 05:26 Helmet Cells Not Reportable 11/22/20 05:26 Brock-[place] Bodies Not Reportable 11/22/20 05:26 Shelly Rings Not Reportable 11/22/20 05:26 Ricky Cells Not Reportable 11/22/20 05:26 Bite Cells Not Reportable 11/22/20 05:26 Crenated Cell Not Reportable 11/22/20 05:26 Elliptocytes Not Reportable 11/22/20 05:26 Acanthocytes (Spur) Not Reportable 11/22/20 05:26 Rouleaux Not Reportable 11/22/20 05:26 Hemoglobin C Crystals Not Reportable 11/22/20 05:26 Schistocytes Not Reportable 11/22/20 05:26 Malaria parasites Not Reportable 11/22/20 05:26 Cristhian Bodies Not Reportable 11/22/20 05:26 Hem Pathologist Commnt No 11/22/20 05:26 PT 15.1 Sec. (12.2-14.9) H 11/16/20 10:15 INR 1.19 (0.87-1.13) H 11/16/20 10:15 APTT 37.0 Sec. (24.2-36.6) H 11/16/20 10:15 VBG pH 7.332 (7.320-7.420) 11/16/20 10:15 Sodium 134 mmol/L (137-145) L 11/26/20 06:42 Potassium 4.7 mmol/L (3.6-5.0) 11/26/20 06:42 Chloride 104.9 mmol/L (98-107) 11/26/20 06:42 Carbon Dioxide 20 mmol/L (22-30) L 11/26/20 06:42 Anion Gap 14 mmol/L 11/26/20 06:42 BUN 23 mg/dL (9-20) H 11/26/20 06:42 Creatinine 3.6 mg/dL (0.8-1.3) H 11/26/20 06:42 Estimated GFR 22 ml/min 11/26/20 06:42 BUN/Creatinine Ratio 6 % 11/26/20 06:42 Glucose 134 mg/dL (75-100) H 11/26/20 06:42 POC Glucose 71 mg/dL (70-105) 11/28/20 21:36 Lactic Acid 1.00 mmol/L (0.7-2.0) 11/17/20 05:10 Calcium 8.7 mg/dL (8.4-10.2) 11/26/20 06:42 Phosphorus 4.60 mg/dL (2.5-4.5) H 11/29/20 06:19 Magnesium 1.70 mg/dL (1.7-2.3) 11/29/20 06:19 Total Bilirubin 0.30 mg/dL (0.1-1.2) 11/26/20 06:42 Direct Bilirubin 0.5 mg/dL (0-0.2) H 11/16/20 10:15 Indirect Bilirubin 0.2 mg/dL 11/16/20 10:15 AST 28 units/L (5-40) 11/26/20 06:42 ALT 24 units/L (7-56) 11/26/20 06:42 Alkaline Phosphatase 215 units/L (35-129) H 11/26/20 06:42 Total Creatine Kinase 138 units/L (55-170) 11/16/20 10:15 C-Reactive Protein 6.10 mg/dL (0.00-1.30) H 11/29/20 06:19 Total Protein 7.5 g/dL (6.3-8.2) 11/26/20 06:42 Albumin 2.7 g/dL (3.9-5) L 11/26/20 06:42 Albumin/Globulin Ratio 0.6 % 11/26/20 06:42 Vancomycin Trough 9.8 ug/mL (5.0-20.0) 11/18/20 10:10 Random Vancomycin 6.1 ug/mL (0-40.0) 11/21/20 04:45 Elder/IV: Voiding Method Urinal Active Medications - Current Medications Current Medications: Generic Name Dose Route Start Last Admin Trade Name Freq PRN Reason Stop Dose Admin Acetaminophen 650 mg 11/16/20 12:30 11/20/20 12:14 Acetaminophen 325 Mg Tab PO 650 mg Q6H PRN Administration Pain, Mild (1-3) Hydrocodone Bitart/Acetaminophen 1 each 11/16/20 12:23 11/28/20 16:59 Hydrocodone/Acetaminophen 5-325 Mg Tab PO 1 each Q6HR PRN Administration PAIN Albuterol 2.5 mg 11/16/20 12:30 Albuterol 2.5 Mg/3 Ml Nebu IH Q4HRT PRN Shortness Of Breath Aspirin 81 mg 11/28/20 10:00 11/29/20 10:27 Aspirin Ec 81 Mg Tab PO 81 mg QDAY BARRY Administration Benzonatate 100 mg 11/16/20 14:00 11/29/20 05:16 Benzonatate 100 Mg Cap PO 100 mg Q8HR BARRY Administration Clopidogrel Bisulfate 75 mg 11/28/20 10:00 11/29/20 10:27 Clopidogrel 75 Mg Tab PO 75 mg QDAY BARRY Administration Dextrose 50 ml 11/16/20 12:30 Dextrose 50% In Water (25gm) 50 Ml Syringe IV Q30MIN PRN Hypoglycemia Protocol Famotidine 20 mg 11/19/20 10:00 11/29/20 10:28 Famotidine 20 Mg Tab PO 20 mg DAILY BARRY Administration Gabapentin 300 mg 11/16/20 14:00 11/29/20 05:12 Gabapentin 300 Mg Cap PO 300 mg Q8HR BARRY Administration Heparin Sodium (Porcine) 5,000 unit 11/16/20 14:00 11/29/20 05:13 Heparin 5,000 Unit/1 Ml Vial SUB-Q 5,000 unit Q8HR BARRY Administration Hydralazine HCl 100 mg 11/16/20 14:00 11/29/20 05:12 Hydralazine 100 Mg Tab PO 100 mg Q8HR BARRY Administration Hydralazine HCl 10 mg 11/22/20 12:57 11/27/20 16:53 Hydralazine 20 Mg/1 Ml Inj IV 10 mg Q4HR PRN Administration Blood Pressure Hydromorphone HCl 1 mg 11/27/20 12:33 11/29/20 08:09 Hydromorphone 1 Mg/1 Ml Inj IV 1 mg Q2H PRN Administration Pain , Severe (7-10) Sodium Chloride 250 mls @ 250 mls/hr 11/17/20 10:00 11/29/20 10:44 Nacl 0.9% 250ml IV 250 mls/hr Q12HR BARRY Administration Cefepime HCl 2 gm in 100 mls @ 200 mls/hr 11/20/20 15:00 11/29/20 03:29 Cefepime/Ns 2 Gm/100 Ml IV 12/18/20 15:29 Infused Q24H [facility] Infusion Protocol Sodium Chloride 1,000 mls @ 75 mls/hr 11/26/20 13:30 11/29/20 08:26 Nacl 0.9% 1000 Ml IV 75 mls/hr DIRECT BARRY Administration Insulin Human Isoph/Insulin Regular 37 unit 11/18/20 17:00 11/29/20 10:26 Insulin Nph/Regular 70/30 Inj SUB-Q Not Given BIDDIAB [facility] Insulin Human Lispro 0 unit 11/17/20 18:00 11/29/20 10:31 Insulin Lispro 100 Unit/Ml SUB-Q 3 unit Q4HR BARRY Administration Protocol Linezolid 600 mg 11/20/20 15:00 11/29/20 10:28 Linezolid 600 Mg Tab PO 12/18/20 22:01 600 mg Q12HR BARRY Administration Protocol Metaxalone 800 mg 11/26/20 10:00 11/26/20 13:41 Metaxalone 800 Mg Tab PO 800 mg Q12H PRN Administration Muscle Spasm Metoprolol Tartrate 25 mg 11/16/20 22:00 11/29/20 10:28 Metoprolol Tartrate 25 Mg Tab PO 25 mg BID BARRY Administration Ondansetron HCl 4 mg 11/16/20 12:30 11/28/20 22:07 Ondansetron 4 Mg/2 Ml Inj IV 4 mg Q8H PRN Administration Nausea And Vomiting Pantoprazole Sodium 40 mg 11/28/20 07:30 11/29/20 08:26 Pantoprazole 40 Mg Tab PO 40 mg QDAC BARRY Administration Pravastatin Sodium 20 mg 11/16/20 22:00 11/28/20 22:01 Pravastatin 20 Mg Tab PO 20 mg QHS BARRY Administration Sodium Chloride 10 ml 11/16/20 22:00 11/29/20 10:29 Sodium Chloride 0.9% 10 Ml Flush Syringe IV 10 ml BID BARRY Administration Sodium Chloride 10 ml 11/16/20 12:07 Sodium Chloride 0.9% 10 Ml Flush Syringe IV PRN PRN LINE FLUSH Nutrition/Malnutrition Assess - Dietary Evaluation Nutrition/Malnutrition Findings: Nutrition Notes Start: 11/23/20 12:36 Freq: Status: Active Protocol: Document 11/28/20 11:45 AT (Rec: 11/28/20 11:54 AT [id number]) Co-Sign 11/28/20 11:45 Nutrition Notes Initial or Follow up Brief Note Current Diagnosis Acute Kidney Injury,CKD(stage I-IV),Diabetes,Sepsis, Hypertension,Heart Failure, Hyperlipidemia Other Pertinent Diagnosis s/p amputation 2 toes on R foot, R foot osteomyelitis, MRSA, PVD Current Diet Cardiac/Consistent CHO Subjective/Other Information F/U for diet education and ONS tolerance. Pt refused diet education, stating that he had "been through them all." Pt was reticent to speak much further. Will follow up for intakes. Nutrition Intervention Follow-Up By: 11/30/20 Additional Comments F/U for stable intakes, ONS tolerance
[2020-11-29] MEDS: hydrALAZINE 20 MG/1 ML INJ IV PRN (11:06)
--- NOTE | 2020-11-29 15:09 | Progress Note ---
Assessment and Plan Cultures: 11/16/2020 blood culture: Group B streptococcus 11/16/2020 urine culture: No growth 11/20/2020 blood culture: no growth thus far A/P: 45 year old male with history of uncontrolled diabetes mellitus, hyperlipidemia, hypertension, chronic kidney disease, obesity, peripheral vascular disease, with multiple infectious complications especially his right foot in the recent past, now readmitted with: #Sepsis secondary to right foot infection #Back pain: agree with MRI #Group B strep bacteremia: Secondary to right foot infection #Worsening right diabetic foot infection with osteomyelitis: 3rd, 4th and 5th toe TMA on 10/10/2020, now again TMA of the right second toe amputation of the distal half of the third metatarsal shaft on 11/19/2020. Previously has grown MRSA and Pseudomonas from the R foot and was treated with IV abx. #Uncontrolled diabetes mellitus #Advanced CKD: has been refusing hemodialysis. Nephrology following. #Peripheral vascular disease: s/p angiogram Recs: -continue renally dosed IV Cefepime and PO Linezolid while inpatient -OPAT orders placed for IV Cefepime + Daptomycin x 4 weeks ending 12/18/2020 via home health. Approved by insurance with [facility] -overall poor prognosis given his non compliance and lack of insight with regards to the disease process -Patient being treated for osteomyelitis anyway, as long as no neurological defects okay with no MRI back Outpatient antibiotics arranged, please let me know when discharging so can rosa parikh orders. Cathy Rodriguez MD [facility] [place] ([facility]) O: [phone] F: [phone] Subjective Date of service: 11/29/20 Principal diagnosis: Right foot PVD Interval history: Afebrile, no acute changes at present. Patient refusing MRI. Objective - Exam Narrative Exam: Physical Exam: Constitutional: Awake. No acute distress Head, Ears, Nose: Normocephalic, atraumatic. Eyes: Conjunctivae/corneas clear. No icterus. No ptosis. Neck: Supple, no meningeal signs Cardiovascular: S1, S2 normal. Respiratory: Good air entry, clear to auscultation bilaterally GI: Soft, non-tender; bowel sounds normal. No peritoneal signs Musculoskeletal: R foot VAC + Skin: No rash or abscess Hem/Lymphatic: No palpable cervical or supraclavicular nodes. No lymphangitis Psych: flat affect Neurological: awake, no gross abnormality - Constitutional Vitals: Vital Signs Temp Pulse Resp BP Pulse Ox 98.3 F 99 H 20 146/101 96 11/29/20 11:30 11/29/20 11:30 11/29/20 11:30 11/29/20 11:30 11/29/20 11:30 Temperature -Last 24 Hours Temperature 98.3 F Temperature 98.2 F Temperature 97.8 F Temperature 98.4 F Temperature 98.3 F Temperature 98.6 F - Labs CBC & Chem 7: 11/26/20 06:42 11/26/20 06:42 Labs: Abnormal lab results 11/29/20 11/29/20 11/29/20 Range/Units 06:19 07:41 10:22 POC Glucose 127 H 152 H (70-105) mg/dL Phosphorus 4.60 H (2.5-4.5) mg/dL C-Reactive Protein 6.10 H (0.00-1.30) mg/dL
[2020-11-29] MEDS: CEFEPIME/NS 2 GM/100 ML 2 GM/100 ML BAG IV SCH (17:19)
[2020-11-29] MEDS: PRAVASTATIN 20 MG TAB PO SCH (21:27)
--- NOTE | 2020-11-29 21:35 | Progress Note ---
Assessment and Plan - Patient Problems (1) Acute kidney injury superimposed on CKD Current Visit: Yes Status: Acute Plan to address problem: Acute kidney injury superimposed on stage IV chronic kidney disease. stable renal function. Continue to monitor electrolytes and renal function. (2) Osteomyelitis of foot, right, acute Current Visit: Yes Status: Acute Plan to address problem: Continue antibiotics appropriately adjusted to the degree of renal function. Infectious disease arranging for outpatient antibiotics. (3) Hyperosmolar non-ketotic state in patient with type 2 diabetes mellitus Current Visit: No Status: Acute Plan to address problem: Diabetes management as per primary attending (4) Peripheral vascular disease Current Visit: Yes Status: Chronic Plan to address problem: Status post revascularization to the right foot (5) Hypertensive chronic kidney disease with stage 1 through stage 4 chronic kidney disease, or unspecified chronic kidney disease Current Visit: No Status: Acute Plan to address problem: Follow-up blood pressure on current medications. (6) Anemia in chronic illness Current Visit: Yes Status: Chronic Plan to address problem: Continue supplements and erythropoiesis stimulating agent as indicated. Follow- up hemoglobin Subjective Date of service: 11/29/20 Principal diagnosis: Right foot PVD Interval history: Pt awake, alert, in no acute distress Objective - Vital Signs Vital signs: Vital Signs - 12hr 11/29/20 11/29/20 11/29/20 10:28 11:06 11:17 Temperature 98.3 F Pulse Rate 96 H 99 H Respiratory 18 Rate Blood Pressure 171/103 171/103 146/101 Blood Pressure [Left] O2 Sat by Pulse 93 Oximetry 11/29/20 11/29/20 11/29/20 11:30 16:00 16:26 Temperature 98.3 F 98.9 F 98.9 F Pulse Rate 99 H 87 87 Respiratory 20 18 22 Rate Blood Pressure 169/101 Blood Pressure 146/101 169/101 [Left] O2 Sat by Pulse 96 95 95 Oximetry 11/29/20 19:50 Temperature 97.8 F Pulse Rate 92 H Respiratory 18 Rate Blood Pressure 166/108 Blood Pressure [Left] O2 Sat by Pulse 97 Oximetry - General Appearance General appearance: well-developed, well-nourished, appears stated age EENT: ATNC, PERRL, mucous membranes moist Neck: no JVD Respiratory: Present: Clear to Ascultation Cardiology: regular, S1S2 Gastrointestinal: normoactive bowel sounds Integumentary: no rash, other (wound vac at R foot) Neurologic: no focal deficit, alert and oriented x3, strength 5/5, CN 3-12 intact Psychiatric: mood/affect appropriate, cooperative - Lab 11/26/20 06:42 11/26/20 06:42 Most recent lab results Calcium 8.7 mg/dL (8.4-10.2) 11/26/20 06:42 Phosphorus 4.60 mg/dL (2.5-4.5) H 11/29/20 06:19 Magnesium 1.70 mg/dL (1.7-2.3) 11/29/20 06:19 Medications & Allergies - Medications Allergies/Adverse Reactions: Allergies oxycodone [From Percocet] Adverse Reaction (Verified 09/24/20 18:07) Vomiting Home Medications: Home Medications Medication Instructions Recorded Confirmed Last Taken Type Pravastatin [Pravachol] 20 mg PO QHS #30 tablet 04/20/18 11/16/20 Unknown Rx Amlodipine Besylate [Norvasc] 10 mg PO DAILY 12/06/18 11/16/20 Unknown History Gabapentin 300 mg PO Q8HR 12/06/18 11/16/20 Unknown History Albuterol Mdi (or & Nicu Only) 2 puff IH QID PRN #1 inhalation 08/24/20 11/16/20 Unknown Rx [ProAir HFA Inhaler] Benzonatate [Tessalon Perles] 100 mg PO Q8HR #10 capsule 08/24/20 11/16/20 Unknown Rx DAPTOmycin 800 mg IV Q24H vial 09/28/20 11/16/20 Unknown Rx Insulin NPH/Regular [NovoLIN 70/30] 35 unit SUB-Q BIDDIAB #12 ml 09/28/20 11/16/20 Unknown Rx Metoprolol [Lopressor TAB] 25 mg PO BID #60 tablet 09/28/20 11/16/20 Unknown Rx hydrALAZINE [Apresoline TAB] 100 mg PO Q8HR #90 tab 09/28/20 11/16/20 Unknown Rx HYDROcodone/APAP 5-325 [[place] 1 each PO Q6HR PRN #14 tablet 10/13/20 11/16/20 Unknown Rx 5-325 mg TAB] Active Medications: Generic Name Dose Route Start Last Admin Trade Name Freq PRN Reason Stop Dose Admin Acetaminophen 650 mg 11/16/20 12:30 11/20/20 12:14 Acetaminophen 325 Mg Tab PO 650 mg Q6H PRN Administration Pain, Mild (1-3) Hydrocodone Bitart/Acetaminophen 1 each 11/16/20 12:23 11/28/20 16:59 Hydrocodone/Acetaminophen 5-325 Mg Tab PO 1 each Q6HR PRN Administration PAIN Albuterol 2.5 mg 11/16/20 12:30 Albuterol 2.5 Mg/3 Ml Nebu IH Q4HRT PRN Shortness Of Breath Aspirin 81 mg 11/28/20 10:00 11/29/20 10:27 Aspirin Ec 81 Mg Tab PO 81 mg QDAY BARRY Administration Benzonatate 100 mg 11/16/20 14:00 11/29/20 21:27 Benzonatate 100 Mg Cap PO 100 mg Q8HR BARRY Administration Clopidogrel Bisulfate 75 mg 11/28/20 10:00 11/29/20 10:27 Clopidogrel 75 Mg Tab PO 75 mg QDAY BARRY Administration Dextrose 50 ml 11/16/20 12:30 Dextrose 50% In Water (25gm) 50 Ml Syringe IV Q30MIN PRN Hypoglycemia Protocol Famotidine 20 mg 11/19/20 10:00 11/29/20 10:28 Famotidine 20 Mg Tab PO 20 mg DAILY BARRY Administration Gabapentin 300 mg 11/16/20 14:00 11/29/20 21:28 Gabapentin 300 Mg Cap PO 300 mg Q8HR BARRY Administration Heparin Sodium (Porcine) 5,000 unit 11/16/20 14:00 11/29/20 14:39 Heparin 5,000 Unit/1 Ml Vial SUB-Q 5,000 unit Q8HR BARRY Administration Hydralazine HCl 100 mg 11/16/20 14:00 11/29/20 21:27 Hydralazine 100 Mg Tab PO 100 mg Q8HR BARRY Administration Hydralazine HCl 10 mg 11/22/20 12:57 11/29/20 11:06 Hydralazine 20 Mg/1 Ml Inj IV 10 mg Q4HR PRN Administration Blood Pressure Hydromorphone HCl 1 mg 11/27/20 12:33 11/29/20 17:38 Hydromorphone 1 Mg/1 Ml Inj IV 1 mg Q2H PRN Administration Pain , Severe (7-10) Sodium Chloride 250 mls @ 250 mls/hr 11/17/20 10:00 11/29/20 21:04 Nacl 0.9% 250ml IV Infused Q12HR BARRY Infusion Cefepime HCl 2 gm in 100 mls @ 200 mls/hr 11/20/20 15:00 11/29/20 21:26 Cefepime/Ns 2 Gm/100 Ml IV 12/18/20 15:29 Infused Q24H BARRY Infusion Protocol Sodium Chloride 1,000 mls @ 75 mls/hr 11/26/20 13:30 11/29/20 08:26 Nacl 0.9% 1000 Ml IV 75 mls/hr DIRECT BARRY Administration Insulin Human Isoph/Insulin Regular 37 unit 11/18/20 17:00 11/29/20 18:38 Insulin Nph/Regular 70/30 Inj SUB-Q Not Given BIDDIAB BARRY Insulin Human Lispro 0 unit 11/17/20 18:00 11/29/20 21:04 Insulin Lispro 100 Unit/Ml SUB-Q Not Given Q4HR [facility] Protocol Linezolid 600 mg 11/20/20 15:00 11/29/20 21:27 Linezolid 600 Mg Tab PO 12/18/20 22:01 600 mg Q12HR BARRY Administration Protocol Metaxalone 800 mg 11/26/20 10:00 11/26/20 13:41 Metaxalone 800 Mg Tab PO 800 mg Q12H PRN Administration Muscle Spasm Metoprolol Tartrate 25 mg 11/16/20 22:00 11/29/20 21:28 Metoprolol Tartrate 25 Mg Tab PO 25 mg BID BARRY Administration Ondansetron HCl 4 mg 11/16/20 12:30 11/28/20 22:07 Ondansetron 4 Mg/2 Ml Inj IV 4 mg Q8H PRN Administration Nausea And Vomiting Pantoprazole Sodium 40 mg 11/28/20 07:30 11/29/20 08:26 Pantoprazole 40 Mg Tab PO 40 mg QDAC BARRY Administration Pravastatin Sodium 20 mg 11/16/20 22:00 11/29/20 21:27 Pravastatin 20 Mg Tab PO 20 mg QHS BARRY Administration Sodium Chloride 10 ml 11/16/20 22:00 11/29/20 21:28 Sodium Chloride 0.9% 10 Ml Flush Syringe IV 10 ml BID BARRY Administration Sodium Chloride 10 ml 11/16/20 12:07 Sodium Chloride 0.9% 10 Ml Flush Syringe IV PRN PRN LINE FLUSH
[2020-11-30] MEDS: INSULIN LISPRO 100 UNIT/ML SUB-Q SCH ×7 (00:37→22:00)
[2020-11-30] MEDS: HEPARIN 5,000 UNIT/1 ML VIAL SUB-Q SCH ×4 (00:43→22:00)
[2020-11-30] MEDS: HYDROmorphone 1 MG/1 ML INJ IV PRN ×5 (01:47→19:09)
[2020-11-30] MEDS: hydrALAZINE 20 MG/1 ML INJ IV PRN (01:50)
[2020-11-30] MEDS: hydrALAZINE 100 MG TAB PO SCH ×3 (06:49→22:00)
[2020-11-30] MEDS: GABAPENTIN 300 MG CAP PO SCH ×3 (06:49→22:00)
[2020-11-30] MEDS: BENZONATATE 100 MG CAP PO SCH ×3 (06:54→22:00)
[2020-11-30] MEDS: INSULIN NPH/REGULAR 70/30 INJ SUB-Q SCH ×2 (09:32→18:06)
[2020-11-30] MEDS: LINEZOLID 600 MG TAB PO SCH ×2 (11:29→22:00)
[2020-11-30] MEDS: METOPROLOL TARTRATE 25 MG TAB PO SCH ×2 (11:30→22:00)
[2020-11-30] MEDS: ASPIRIN EC 81 MG TAB PO SCH (11:30)
[2020-11-30] MEDS: PANTOPRAZOLE 40 MG TAB PO SCH (11:30)
[2020-11-30] MEDS: CLOPIDOGREL 75 MG TAB PO SCH (11:30)
[2020-11-30] MEDS: FAMOTIDINE 20 MG TAB PO SCH (11:31)
[2020-11-30] MEDS: HYDROcodone/ACETAMINOPHEN 5-325 MG TAB PO PRN (13:36)
--- NOTE | 2020-11-30 13:37 | Progress Note ---
Assessment and Plan - Patient Problems (1) Acute kidney injury superimposed on CKD Current Visit: Yes Status: Acute Plan to address problem: Acute kidney injury superimposed on stage IV chronic kidney disease. stable renal function. Continue to monitor electrolytes and renal function. (2) Osteomyelitis of foot, right, acute Current Visit: Yes Status: Acute Plan to address problem: Continue antibiotics appropriately adjusted to the degree of renal function. Infectious disease arranging for outpatient antibiotics. (3) Hyperosmolar non-ketotic state in patient with type 2 diabetes mellitus Current Visit: No Status: Acute Plan to address problem: Diabetes management as per primary attending (4) Peripheral vascular disease Current Visit: Yes Status: Chronic Plan to address problem: Status post revascularization to the right foot (5) Hypertensive chronic kidney disease with stage 1 through stage 4 chronic kidney disease, or unspecified chronic kidney disease Current Visit: No Status: Acute Plan to address problem: Follow-up blood pressure on current medications. (6) Anemia in chronic illness Current Visit: Yes Status: Chronic Plan to address problem: Continue supplements and erythropoiesis stimulating agent as indicated. Follow- up hemoglobin Subjective Date of service: 11/30/20 Principal diagnosis: Right foot PVD Interval history: Pt awake, alert, in no acute distress Objective - Vital Signs Vital signs: Vital Signs - 12hr 11/30/20 11/30/20 04:36 08:26 Temperature 98.5 F 98.4 F Pulse Rate 89 92 H Respiratory 18 18 Rate Blood Pressure 173/101 175/109 O2 Sat by Pulse 97 99 Oximetry - General Appearance General appearance: well-developed, well-nourished, appears stated age EENT: ATNC, PERRL, mucous membranes moist Neck: no JVD Respiratory: Present: Clear to Ascultation Cardiology: regular, S1S2 Gastrointestinal: normoactive bowel sounds Integumentary: no rash, other (s/p wound vac change ) Neurologic: no focal deficit, alert and oriented x3, strength 5/5, CN 3-12 intact Psychiatric: mood/affect appropriate, cooperative - Lab 11/26/20 06:42 11/26/20 06:42 Most recent lab results Calcium 8.7 mg/dL (8.4-10.2) 11/26/20 06:42 Phosphorus 4.60 mg/dL (2.5-4.5) H 11/29/20 06:19 Magnesium 1.70 mg/dL (1.7-2.3) 11/29/20 06:19 Medications & Allergies - Medications Allergies/Adverse Reactions: Allergies oxycodone [From Percocet] Adverse Reaction (Verified 09/24/20 18:07) Vomiting Home Medications: Home Medications Medication Instructions Recorded Confirmed Last Taken Type Pravastatin [Pravachol] 20 mg PO QHS #30 tablet 04/20/18 11/16/20 Unknown Rx Amlodipine Besylate [Norvasc] 10 mg PO DAILY 12/06/18 11/16/20 Unknown History Gabapentin 300 mg PO Q8HR 12/06/18 11/16/20 Unknown History Albuterol Mdi (or & Nicu Only) 2 puff IH QID PRN #1 inhalation 08/24/20 11/16/20 Unknown Rx [ProAir HFA Inhaler] Benzonatate [Tessalon Perles] 100 mg PO Q8HR #10 capsule 08/24/20 11/16/20 Unknown Rx DAPTOmycin 800 mg IV Q24H vial 09/28/20 11/16/20 Unknown Rx Insulin NPH/Regular [NovoLIN 70/30] 35 unit SUB-Q BIDDIAB #12 ml 09/28/20 11/16/20 Unknown Rx Metoprolol [Lopressor TAB] 25 mg PO BID #60 tablet 09/28/20 11/16/20 Unknown Rx hydrALAZINE [Apresoline TAB] 100 mg PO Q8HR #90 tab 09/28/20 11/16/20 Unknown Rx HYDROcodone/APAP 5-325 [[place] 1 each PO Q6HR PRN #14 tablet 10/13/20 11/16/20 Unknown Rx 5-325 mg TAB] Active Medications: Generic Name Dose Route Start Last Admin Trade Name Freq PRN Reason Stop Dose Admin Acetaminophen 650 mg 11/16/20 12:30 11/20/20 12:14 Acetaminophen 325 Mg Tab PO 650 mg Q6H PRN Administration Pain, Mild (1-3) Hydrocodone Bitart/Acetaminophen 1 each 11/16/20 12:23 11/28/20 16:59 Hydrocodone/Acetaminophen 5-325 Mg Tab PO 1 each Q6HR PRN Administration PAIN Albuterol 2.5 mg 11/16/20 12:30 Albuterol 2.5 Mg/3 Ml Nebu IH Q4HRT PRN Shortness Of Breath Aspirin 81 mg 11/28/20 10:00 11/30/20 11:30 Aspirin Ec 81 Mg Tab PO 81 mg QDAY BARRY Administration Benzonatate 100 mg 11/16/20 14:00 11/30/20 06:54 Benzonatate 100 Mg Cap PO 100 mg Q8HR BARRY Administration Clopidogrel Bisulfate 75 mg 11/28/20 10:00 11/30/20 11:30 Clopidogrel 75 Mg Tab PO 75 mg QDAY BARRY Administration Dextrose 50 ml 11/16/20 12:30 Dextrose 50% In Water (25gm) 50 Ml Syringe IV Q30MIN PRN Hypoglycemia Protocol Famotidine 20 mg 11/19/20 10:00 11/30/20 11:31 Famotidine 20 Mg Tab PO 20 mg DAILY BARRY Administration Gabapentin 300 mg 11/16/20 14:00 11/30/20 06:49 Gabapentin 300 Mg Cap PO 300 mg Q8HR BARRY Administration Heparin Sodium (Porcine) 5,000 unit 11/16/20 14:00 11/30/20 06:49 Heparin 5,000 Unit/1 Ml Vial SUB-Q 5,000 unit Q8HR BARRY Administration Hydralazine HCl 100 mg 11/16/20 14:00 11/30/20 06:49 Hydralazine 100 Mg Tab PO 100 mg Q8HR BARRY Administration Hydralazine HCl 10 mg 11/22/20 12:57 11/30/20 01:50 Hydralazine 20 Mg/1 Ml Inj IV 10 mg Q4HR PRN Administration Blood Pressure Hydromorphone HCl 1 mg 11/27/20 12:33 11/30/20 06:49 Hydromorphone 1 Mg/1 Ml Inj IV 1 mg Q2H PRN Administration Pain , Severe (7-10) Sodium Chloride 250 mls @ 250 mls/hr 11/17/20 10:00 11/29/20 21:04 Nacl 0.9% 250ml IV Infused Q12HR BARRY Infusion Cefepime HCl 2 gm in 100 mls @ 200 mls/hr 11/20/20 15:00 11/29/20 21:26 Cefepime/Ns 2 Gm/100 Ml IV 12/18/20 15:29 Infused Q24H BARRY Infusion Protocol Sodium Chloride 1,000 mls @ 75 mls/hr 11/26/20 13:30 11/30/20 00:33 Nacl 0.9% 1000 Ml IV Infused DIRECT BARRY Infusion Insulin Human Isoph/Insulin Regular 37 unit 11/18/20 17:00 11/30/20 09:32 Insulin Nph/Regular 70/30 Inj SUB-Q 37 unit BIDDIAB BARRY Administration Insulin Human Lispro 0 unit 11/17/20 18:00 11/30/20 06:55 Insulin Lispro 100 Unit/Ml SUB-Q Not Given Q4HR BARRY Protocol Linezolid 600 mg 11/20/20 15:00 11/30/20 11:29 Linezolid 600 Mg Tab PO 12/18/20 22:01 600 mg Q12HR BARRY Administration Protocol Metaxalone 800 mg 11/26/20 10:00 11/26/20 13:41 Metaxalone 800 Mg Tab PO 800 mg Q12H PRN Administration Muscle Spasm Metoprolol Tartrate 25 mg 11/16/20 22:00 11/30/20 11:30 Metoprolol Tartrate 25 Mg Tab PO 25 mg BID BARRY Administration Ondansetron HCl 4 mg 11/16/20 12:30 11/28/20 22:07 Ondansetron 4 Mg/2 Ml Inj IV 4 mg Q8H PRN Administration Nausea And Vomiting Pantoprazole Sodium 40 mg 11/28/20 07:30 11/30/20 11:30 Pantoprazole 40 Mg Tab PO 40 mg QDAC BARRY Administration Pravastatin Sodium 20 mg 11/16/20 22:00 11/29/20 21:27 Pravastatin 20 Mg Tab PO 20 mg QHS BARRY Administration Sodium Chloride 10 ml 11/16/20 22:00 11/30/20 13:31 Sodium Chloride 0.9% 10 Ml Flush Syringe IV 10 ml BID BARRY Administration Sodium Chloride 10 ml 11/16/20 12:07 Sodium Chloride 0.9% 10 Ml Flush Syringe IV PRN PRN LINE FLUSH
--- NOTE | 2020-11-30 14:46 | Progress Note ---
Assessment and Plan Cultures: 11/16/2020 blood culture: Group B streptococcus 11/16/2020 urine culture: No growth 11/20/2020 blood culture: no growth thus far A/P: 45 year old male with history of uncontrolled diabetes mellitus, hyperlipidemia, hypertension, chronic kidney disease, obesity, peripheral vascular disease, with multiple infectious complications especially his right foot in the recent past, now readmitted with: #Sepsis secondary to right foot infection #Back pain: Patient refused MRI #Group B strep bacteremia: Secondary to right foot infection #Worsening right diabetic foot infection with osteomyelitis: 3rd, 4th and 5th toe TMA on 10/10/2020, now again TMA of the right second toe amputation of the distal half of the third metatarsal shaft on 11/19/2020. Previously has grown MRSA and Pseudomonas from the R foot and was treated with IV abx. #Uncontrolled diabetes mellitus #Advanced CKD: has been refusing hemodialysis. Nephrology following. #Peripheral vascular disease: s/p angiogram Recs: -continue renally dosed IV Cefepime and PO Linezolid while inpatient -OPAT orders placed for IV Cefepime + Daptomycin x 4 weeks ending 12/18/2020 via home health. Approved by insurance with [facility] -overall poor prognosis given his non compliance and lack of insight with regards to the disease process -Patient refused MRI. Already planning long-term course of antibiotics, as long as no neurological defects okay to proceed without MRI. Outpatient antibiotics arranged, please let me know when discharging so can finalize orders. Dr. Pagan covering this weekend Cathy Rodriguez MD [facility] ([facility]) O: [phone] F: [phone] Subjective Date of service: 11/30/20 Principal diagnosis: Right foot PVD Interval history: Afebrile, no acute changes. Objective - Exam Narrative Exam: Physical Exam: Constitutional: Awake. No acute distress Head, Ears, Nose: Normocephalic, atraumatic. Eyes: Conjunctivae/corneas clear. No icterus. No ptosis. Neck: Supple, no meningeal signs Cardiovascular: S1, S2 normal. Respiratory: Good air entry, clear to auscultation bilaterally GI: Soft, non-tender; bowel sounds normal. No peritoneal signs Musculoskeletal: R foot VAC + Skin: No rash or abscess Hem/Lymphatic: No palpable cervical or supraclavicular nodes. No lymphangitis Psych: flat affect Neurological: awake, no gross abnormality - Constitutional Vitals: Vital Signs Temp Pulse Resp BP Pulse Ox 98.6 F 107 H 18 165/102 99 11/30/20 11:49 11/30/20 11:49 11/30/20 11:49 11/30/20 11:49 11/30/20 11:49 Temperature -Last 24 Hours Temperature 98.6 F Temperature 98.4 F Temperature 98.5 F Temperature 98.5 F Temperature 97.8 F Temperature 98.9 F Temperature 98.9 F - Labs CBC & Chem 7: 11/26/20 06:42 11/26/20 06:42 Labs: Abnormal lab results 11/29/20 11/29/20 11/29/20 Range/Units 14:18 18:03 21:42 POC Glucose 141 H 163 H 175 H (70-105) mg/dL 11/30/20 11/30/20 Range/Units 08:29 11:51 POC Glucose 167 H 192 H (70-105) mg/dL
[2020-11-30] MEDS: CEFEPIME/NS 2 GM/100 ML 2 GM/100 ML BAG IV SCH (16:07)
[2020-11-30] MEDS: SODIUM CHLORIDE 0.9% 250ML 250 ML IV SCH (22:00)
[2020-11-30] MEDS: PRAVASTATIN 20 MG TAB PO SCH (22:00)
[2020-12-01] MEDS: INSULIN LISPRO 100 UNIT/ML SUB-Q SCH ×6 (02:00→22:00)
[2020-12-01] MEDS: GABAPENTIN 300 MG CAP PO SCH ×3 (06:16→21:15)
[2020-12-01] MEDS: BENZONATATE 100 MG CAP PO SCH ×3 (06:16→21:15)
[2020-12-01] MEDS: hydrALAZINE 100 MG TAB PO SCH ×3 (06:16→21:15)
[2020-12-01] MEDS: HYDROmorphone 1 MG/1 ML INJ IV PRN ×4 (06:17→21:16)
[2020-12-01] MEDS: HEPARIN 5,000 UNIT/1 ML VIAL SUB-Q SCH ×3 (06:17→21:16)
--- NOTE | 2020-12-01 07:10 | Progress Note ---
Assessment and Plan Assessment and Plan Assessment and plan: --Back pain: L4 compression fracture age-indeterminate Current Visit: Yes Status: Acute Plan to address problem: X-ray lumbosacral spine; mild L4 compression fracture age-indeterminate MRI lumbar spine, to rule out osteomyelitis Pain management, PT OT, orthopedic consult --Acute osteomyelitis of right foot toes, Current Visit: Yes Status: Acute Plan to address problem: s/p partial TMA of the right foot involving the third fourth and fifth toes. Continue postop and wound care, wound VAC per surgery Physical therapy occupational therapy when patient is ready --Peripheral vascular disease Current Visit: Yes Status: Acute Plan to address problem: s/p revascularization and successful orthodox of three-vessel runoff to the right foot per vascular/IR Started aspirin and Plavix --Febrile illness, POA; resolved Current Visit: Yes Status: Acute Plan to address problem: Afebrile last 24 hours, Follow cultures ID evaluated the patient, adjusted the antibiotics --Sepsis/due to osteomyelitis foot/toes Current Visit: Yes Status: Acute Plan to address problem: Status post TMA second and third right metatarsal on IV antibiotics cefepime, Flagyl and linezolid ID DC'd Flagyl advised to continue cefepime and linezolid while in hospital At discharge IV cefepime plus daptomycin for 4 weeks ending 12/18/2020 Case management to assist with home health, and home antibiotics Patient has poor understanding of the seriousness of osteomyelitis and long-term antibiotics Overall poor prognosis given his non compliance and lack of insight with regards to the disease process Strongly advised to comply with medications. --Right hip and back pain; Current Visit: Yes Status: Acute Plan to address problem: Pain medications,right hip findings reviewed No acute abnormality, patient will follow with surgeon/orthopedic L4 mild compression fracture age indeterminate, Ortho consult. --Acute on CKD progressing to stage IV Current Visit: Yes Status: Acute Plan to address problem: Due to vasomotor nephropathy avoid nephrotoxins, medications are renally dosed --h/o MRSA cellulitis Current Visit: No Status: Acute Plan to address problem: CBC, CMP, blood culture, wound culture, IV antibiotic therapy, supportive care. Continue linezolid --Metabolic acidosis Current Visit: No Status: Acute Plan to address problem: Secondary to acute on chronic kidney disease Nephrology following --Diabetes mellitus with hyperglycemia Current Visit: No Status: Chronic Plan to address problem: Accu-Chek sliding scale coverage ADA diet Insulin as needed -- HLD (hyperlipidemia) Current Visit: No Status: Chronic Plan to address problem: Lipid panel, statin therapy, supportive care. Low-cholesterol diet, --hypertension Current Visit: No Status: Chronic Plan to address problem: continue antihypertensives Adjust blood pressure medication -- DVT prophylaxis Current Visit: Yes Status: Acute Plan to address problem: Heparin subcu Continue wound care. PT OT when patient is able to tolerate DC planning per case management ID recommended long-term antibiotics for total of 4 weeks Patient has midline placed Plan of care reviewed with the patient and his nurse Will follow MRI findings, follow Ortho evaluation and recommendations Disposition per surgery. Patient refuses LS MRI Has midkine IV abx arranged Able to walk Maybe discharged tomorrow after talking with power project manager Subjective Date of service: 11/30/20 Principal diagnosis: Right foot PVD Interval history: Brief history and hospital course; patient was admitted with acute osteomyelitis of the right foot third and fourth toes Surgeon has evaluated, patient underwent TMA of the both the toes, with wound VAC, ID evaluated the patient Recommend long-term antibiotics for total 4 weeks, patient received midline, disposition per surgery. Patient is fused lumbar spine MRI to rule out osteomyelitis. 11/20/2020; patient is febrile T-max 102 F, patient is on empiric antibiotics, del valle culture sent, ID consulted For choice and duration of antibiotics., Will request PT and patient is able to tolerate physical therapy per surgeon 11/21/2020; patient feels slightly better continues to have severe pain, asking for more pain medications Vital signs reviewed, wound VAC applied to the right foot surgical wound. 11/22/2020; patient complains of some right hip pain and low back pain No history of fall, patient gives history of back surgery Will check x-ray hip and back 11/23/2020; hip x-ray no acute abnormality, lumbosacral spine x-ray all changes Patient need to follow-up with orthopedic surgeon upon discharge Continue antibiotics, wound care, follow surgery recommendations 11/24/2020; patient is sleeping, nurse reports that patient complains of pain On pain medications, antibiotics, surgery and ID following ID recommend long-term anticoagulation total for 4 weeks ending on 12/18/2020 11/25/2020; patient is on long-term antibiotics recommended by ID for total 4 weeks ending on 12/18/2020 Continue wound care, wound VAC in place, disposition per surgery DC planning per case management Patient refused midline placement for long-term antibiotics will check with surgeon Dr. Herrera regarding DC planning 11/26/2020; patient is reevaluated by IR/vascular for possible angiogram tomorrow Patient also complains of vague back pain, lumbosacral spine mild L4 compression fracture age-indeterminate We will consult orthopedic 11/27/2020; patient had revascularization procedure per vascular in/IR started on aspirin and Plavix Also requested MRI lumbar spine to rule out osteomyelitis 11/28/2020; patient refused MRI lumbar spine and also some medications Awaiting Ortho evaluation recommendations, continue current management 11/29/2020; patient refused MRI of the lumbar spine, patient is receiving long- term antibiotics Disposition per surgery History Interval history: Patient feels better continues to have a lot of pain asking for pain medications Patient refused lumbar spine MRI. On long-term antibiotics for osteomyelitis Patient complains of generalized body pains Vital signs reviewed Objective - Constitutional Vitals: Vital Signs - 12hr 11/30/20 11/30/20 12/01/20 19:44 22:00 00:36 Temperature 98.3 F 98.2 F Pulse Rate 94 H 94 H 91 H Respiratory 20 20 Rate Respiratory 20 Rate [Right Foot] Blood Pressure 146/94 146/96 157/82 O2 Sat by Pulse 95 100 Oximetry 12/01/20 12/01/20 05:38 06:17 Temperature 98.0 F Pulse Rate 85 Respiratory 20 20 Rate Respiratory Rate [Right Foot] Blood Pressure 176/101 O2 Sat by Pulse 96 Oximetry General appearance: Present: no acute distress, well-nourished - EENT Eyes: PERRL, EOM intact ENT: hearing intact, clear oral mucosa Ears: bilateral: normal - Neck Neck: supple, normal ROM - Respiratory Respiratory effort: normal Respiratory: bilateral: CTA - Breasts Breasts: normal - Cardiovascular Heart rate: 78 Rhythm: regular Heart Sounds: Present: S1 & S2. Absent: gallop, rub Extremities: pulses intact, No edema, normal color, Full ROM - Gastrointestinal General gastrointestinal: Present: soft, non-tender, non-distended, normal bowel sounds - Genitourinary Male genitourinary: normal - Integumentary Integumentary: clear, warm, dry - Musculoskeletal Musculoskeletal: 1, strength equal bilaterally - Neurologic Neurologic: moves all extremities - Psychiatric Psychiatric: memory intact, appropriate mood/affect, intact judgment & insight - Labs CBC & Chem 7: 11/26/20 06:42 11/26/20 06:42 Labs: Abnormal lab results 11/30/20 11/30/20 11/30/20 Range/Units 08:29 11:51 16:32 POC Glucose 167 H 192 H 126 H (70-105) mg/dL 11/30/20 Range/Units 21:51 POC Glucose 205 H (70-105) mg/dL
[2020-12-01 07:54] LABS: Calcium 8.8 mg/dL (8.4-10.2)
--- NOTE | 2020-12-01 08:19 | Progress Note ---
Assessment and Plan Assessment and plan: --Back pain: L4 compression fracture age-indeterminate Current Visit: Yes Status: Acute Plan to address problem: X-ray lumbosacral spine; mild L4 compression fracture age-indeterminate MRI lumbar spine, to rule out osteomyelitis Pain management, PT OT, orthopedic consult --Acute osteomyelitis of right foot toes, Current Visit: Yes Status: Acute Plan to address problem: s/p partial TMA of the right foot involving the third fourth and fifth toes. Continue postop and wound care, wound VAC per surgery Physical therapy occupational therapy when patient is ready --Peripheral vascular disease Current Visit: Yes Status: Acute Plan to address problem: s/p revascularization and successful synagogue of three-vessel runoff to the right foot per vascular/IR Started aspirin and Plavix --Febrile illness, POA; resolved Current Visit: Yes Status: Acute Plan to address problem: Afebrile last 24 hours, Follow cultures ID evaluated the patient, adjusted the antibiotics --Sepsis/due to osteomyelitis foot/toes Current Visit: Yes Status: Acute Plan to address problem: Status post TMA second and third right metatarsal on IV antibiotics cefepime, Flagyl and linezolid ID DC'd Flagyl advised to continue cefepime and linezolid while in hospital At discharge IV cefepime plus daptomycin for 4 weeks ending 12/18/2020 Case management to assist with home health, and home antibiotics Patient has poor understanding of the seriousness of osteomyelitis and long-term antibiotics Overall poor prognosis given his non compliance and lack of insight with regards to the disease process Strongly advised to comply with medications. --Right hip and back pain; Current Visit: Yes Status: Acute Plan to address problem: Pain medications,right hip findings reviewed No acute abnormality, patient will follow with surgeon/orthopedic L4 mild compression fracture age indeterminate, Ortho consult. --Acute on CKD progressing to stage IV Current Visit: Yes Status: Acute Plan to address problem: Due to vasomotor nephropathy avoid nephrotoxins, medications are renally dosed --h/o MRSA cellulitis Current Visit: No Status: Acute Plan to address problem: CBC, CMP, blood culture, wound culture, IV antibiotic therapy, supportive care. Continue linezolid --Metabolic acidosis Current Visit: No Status: Acute Plan to address problem: Secondary to acute on chronic kidney disease Nephrology following --Diabetes mellitus with hyperglycemia Current Visit: No Status: Chronic Plan to address problem: Accu-Chek sliding scale coverage ADA diet Insulin as needed -- HLD (hyperlipidemia) Current Visit: No Status: Chronic Plan to address problem: Lipid panel, statin therapy, supportive care. Low-cholesterol diet, --hypertension Current Visit: No Status: Chronic Plan to address problem: continue antihypertensives Adjust blood pressure medication -- DVT prophylaxis Current Visit: Yes Status: Acute Plan to address problem: Heparin subcu Continue wound care. PT OT when patient is able to tolerate DC planning per case management ID recommended long-term antibiotics for total of 4 weeks Patient has midline placed Plan of care reviewed with the patient and his nurse Will follow MRI findings, follow Ortho evaluation and recommendations Disposition per surgery. Patient refuses LS MRI Has midkine IV abx arranged Able to walk Maybe discharged tomorrow after talking with manager enrollment Subjective Date of service: 11/30/20 Principal diagnosis: Right foot PVD Interval history: Brief history and hospital course; patient was admitted with acute osteomyelitis of the right foot third and fourth toes Surgeon has evaluated, patient underwent TMA of the both the toes, with wound VAC, ID evaluated the patient Recommend long-term antibiotics for total 4 weeks, patient received midline, disposition per surgery. Patient is fused lumbar spine MRI to rule out osteomyelitis. 11/20/2020; patient is febrile T-max 102 F, patient is on empiric antibiotics, del valle culture sent, ID consulted For choice and duration of antibiotics., Will request PT and patient is able to tolerate physical therapy per surgeon 11/21/2020; patient feels slightly better continues to have severe pain, asking for more pain medications Vital signs reviewed, wound VAC applied to the right foot surgical wound. 11/22/2020; patient complains of some right hip pain and low back pain No history of fall, patient gives history of back surgery Will check x-ray hip and back 11/23/2020; hip x-ray no acute abnormality, lumbosacral spine x-ray all changes Patient need to follow-up with orthopedic surgeon upon discharge Continue antibiotics, wound care, follow surgery recommendations 11/24/2020; patient is sleeping, nurse reports that patient complains of pain On pain medications, antibiotics, surgery and ID following ID recommend long-term anticoagulation total for 4 weeks ending on 12/18/2020 11/25/2020; patient is on long-term antibiotics recommended by ID for total 4 weeks ending on 12/18/2020 Continue wound care, wound VAC in place, disposition per surgery DC planning per case management Patient refused midline placement for long-term antibiotics will check with surgeon Dr. Herrera regarding DC planning 11/26/2020; patient is reevaluated by IR/vascular for possible angiogram tomorrow Patient also complains of vague back pain, lumbosacral spine mild L4 compression fracture age-indeterminate We will consult orthopedic 11/27/2020; patient had revascularization procedure per vascular in/IR started on aspirin and Plavix Also requested MRI lumbar spine to rule out osteomyelitis 11/28/2020; patient refused MRI lumbar spine and also some medications Awaiting Ortho evaluation recommendations, continue current management 11/29/2020; patient refused MRI of the lumbar spine, patient is receiving long- term antibiotics Disposition per surgery 11/30/2020; continue with IV antibiotics, patient refused MRI of the lumbar spine. Disposition is per surgery recommendations. 12/01/2020; patient will be discharged home once case management arranged HH for IV antibiotics. History Interval history: Patient was seen and evaluated this morning Patient feels better continues to have a lot of pain asking for pain medications Patient refused lumbar spine MRI. On long-term antibiotics for osteomyelitis Patient complains of generalized body pains Vital signs reviewed Hospitalist Physical - Physical exam Narrative exam: Not in cardiopulmonary distress. The patient appeared well nourished and normally developed. Vital signs as documented. Head exam is unremarkable. No scleral icterus . Neck is without jugular venous distension, thyromegaly, or carotid bruits. Lungs are clear to auscultation. Cardiac exam reveals regular rate and Rhythm. Abdominal exam reveals normal bowel sounds, nontender, no organomegaly. Musculoskeletal; R foot VAC + [employer]NAGER: Alert and oriented 3. No focal weakness. - Constitutional Vitals: Temp Pulse Resp BP Pulse Ox 98.0 F 85 20 176/101 96 12/01/20 05:38 12/01/20 05:38 12/01/20 06:17 12/01/20 05:38 12/01/20 05:38 General appearance: Present: no acute distress, well-nourished Results - Labs CBC & Chem 7: 11/26/20 06:42 12/01/20 07:10 Labs: Laboratory Last Values WBC 15.2 K/mm3 (4.5-11.0) H 11/26/20 06:42 RBC 3.48 M/mm3 (3.65-5.03) L 11/26/20 06:42 Hgb 8.3 gm/dl (11.8-15.2) L 11/26/20 06:42 Hct 26.9 % (35.5-45.6) L 11/26/20 06:42 MCV 77 fl (84-94) L 11/26/20 06:42 MCH 24 pg (28-32) L 11/26/20 06:42 MCHC 31 % (32-34) L 11/26/20 06:42 RDW 19.2 % (13.2-15.2) H 11/26/20 06:42 Plt Count 585 K/mm3 (140-440) H 11/26/20 06:42 Lymph % (Auto) 14.5 % (13.4-35.0) 11/26/20 06:42 Bibb % (Auto) 7.9 % (0.0-7.3) H 11/26/20 06:42 Eos % (Auto) 1.4 % (0.0-4.3) 11/26/20 06:42 Baso % (Auto) 0.7 % (0.0-1.8) 11/26/20 06:42 Lymph # (Auto) 2.2 K/mm3 (1.2-5.4) 11/26/20 06:42 Bibb # (Auto) 1.2 K/mm3 (0.0-0.8) H 11/26/20 06:42 Eos # (Auto) 0.2 K/mm3 (0.0-0.4) 11/26/20 06:42 Baso # (Auto) 0.1 K/mm3 (0.0-0.1) 11/26/20 06:42 Add Manual Diff Complete 11/22/20 05:26 Total Counted 100 11/22/20 05:26 Seg Neutrophils % 75.5 % (40.0-70.0) H 11/26/20 06:42 Seg Neuts % (Manual) 76.0 % (40.0-70.0) H 11/22/20 05:26 Lymphocytes % (Manual) 13.0 % (13.4-35.0) L 11/22/20 05:26 Monocytes % (Manual) 7.0 % (0.0-7.3) 11/22/20 05:26 Eosinophils % (Manual) 2.0 % (0.0-4.3) 11/22/20 05:26 Metamyelocytes % 1.0 % 11/22/20 05:26 Myelocytes % 1.0 % 11/22/20 05:26 Nucleated RBC % Not Reportable 11/22/20 05:26 Seg Neutrophils # 11.5 K/mm3 (1.8-7.7) H 11/26/20 06:42 Seg Neutrophils # Man 16.0 K/mm3 (1.8-7.7) H 11/22/20 05:26 Band Neutrophils # 0.0 K/mm3 11/22/20 05:26 Lymphocytes # (Manual) 2.7 K/mm3 (1.2-5.4) 11/22/20 05:26 Abs React Lymphs (Man) 0.0 K/mm3 11/22/20 05:26 Monocytes # (Manual) 1.5 K/mm3 (0.0-0.8) H 11/22/20 05:26 Eosinophils # (Manual) 0.4 K/mm3 (0.0-0.4) 11/22/20 05:26 Basophils # (Manual) 0.0 K/mm3 (0.0-0.1) 11/22/20 05:26 Metamyelocytes # 0.2 K/mm3 11/22/20 05:26 Myelocytes # 0.2 K/mm3 11/22/20 05:26 Promyelocytes # 0.0 K/mm3 11/22/20 05:26 Blast Cells # 0.0 K/mm3 11/22/20 05:26 WBC Morphology Not Reportable 11/22/20 05:26 Hypersegmented Neuts Not Reportable 11/22/20 05:26 Hyposegmented Neuts Not Reportable 11/22/20 05:26 Hypogranular Neuts Not Reportable 11/22/20 05:26 Smudge Cells Not Reportable 11/22/20 05:26 Toxic Granulation Not Reportable 11/22/20 05:26 Toxic Vacuolation Not Reportable 11/22/20 05:26 Dohle Bodies Not Reportable 11/22/20 05:26 Pelger-Huet Anomaly Not Reportable 11/22/20 05:26 Shayla Rods Not Reportable 11/22/20 05:26 Platelet Estimate Consistent w auto 11/22/20 05:26 Clumped Platelets Not Reportable 11/22/20 05:26 Plt Clumps, EDTA Not Reportable 11/22/20 05:26 Large Platelets Not Reportable 11/22/20 05:26 Giant Platelets Not Reportable 11/22/20 05:26 Platelet Satelliting Not Reportable 11/22/20 05:26 Plt Morphology Comment Not Reportable 11/22/20 05:26 RBC Morphology Not Reportable 11/22/20 05:26 Dimorphic RBCs Not Reportable 11/22/20 05:26 Polychromasia Not Reportable 11/22/20 05:26 Hypochromasia 1+ 11/22/20 05:26 Poikilocytosis Not Reportable 11/22/20 05:26 Anisocytosis Not Reportable 11/22/20 05:26 Microcytosis Not Reportable 11/22/20 05:26 Macrocytosis Not Reportable 11/22/20 05:26 Spherocytes Not Reportable 11/22/20 05:26 Pappenheimer Bodies Not Reportable 11/22/20 05:26 Sickle Cells Not Reportable 11/22/20 05:26 Target Cells Rare 11/22/20 05:26 Tear Drop Cells Not Reportable 11/22/20 05:26 Ovalocytes Not Reportable 11/22/20 05:26 Helmet Cells Not Reportable 11/22/20 05:26 [place] Bodies Not Reportable 11/22/20 05:26 [place] Rings Not Reportable 11/22/20 05:26 Ricky Cells Not Reportable 11/22/20 05:26 Bite Cells Not Reportable 11/22/20 05:26 Crenated Cell Not Reportable 11/22/20 05:26 Elliptocytes Not Reportable 11/22/20 05:26 Acanthocytes (Spur) Not Reportable 11/22/20 05:26 Rouleaux Not Reportable 11/22/20 05:26 Hemoglobin C Crystals Not Reportable 11/22/20 05:26 Schistocytes Not Reportable 11/22/20 05:26 Malaria parasites Not Reportable 11/22/20 05:26 Cristhian Bodies Not Reportable 11/22/20 05:26 Hem Pathologist Commnt No 11/22/20 05:26 PT 15.1 Sec. (12.2-14.9) H 11/16/20 10:15 INR 1.19 (0.87-1.13) H 11/16/20 10:15 APTT 37.0 Sec. (24.2-36.6) H 11/16/20 10:15 VBG pH 7.332 (7.320-7.420) 11/16/20 10:15 Sodium 135 mmol/L (137-145) L 12/01/20 07:10 Potassium 4.7 mmol/L (3.6-5.0) 12/01/20 07:10 Chloride 105.9 mmol/L (98-107) 12/01/20 07:10 Carbon Dioxide 20 mmol/L (22-30) L 12/01/20 07:10 Anion Gap 14 mmol/L 12/01/20 07:10 BUN 29 mg/dL (9-20) H 12/01/20 07:10 Creatinine 3.9 mg/dL (0.8-1.3) H 12/01/20 07:10 Estimated GFR 20 ml/min 12/01/20 07:10 BUN/Creatinine Ratio 7 % 12/01/20 07:10 Glucose 153 mg/dL (75-100) H 12/01/20 07:10 POC Glucose 205 mg/dL (70-105) H 11/30/20 21:51 Lactic Acid 1.00 mmol/L (0.7-2.0) 11/17/20 05:10 Calcium 8.8 mg/dL (8.4-10.2) 12/01/20 07:10 Phosphorus 4.60 mg/dL (2.5-4.5) H 11/29/20 06:19 Magnesium 1.70 mg/dL (1.7-2.3) 11/29/20 06:19 Total Bilirubin 0.30 mg/dL (0.1-1.2) 11/26/20 06:42 Direct Bilirubin 0.5 mg/dL (0-0.2) H 11/16/20 10:15 Indirect Bilirubin 0.2 mg/dL 11/16/20 10:15 AST 28 units/L (5-40) 11/26/20 06:42 ALT 24 units/L (7-56) 11/26/20 06:42 Alkaline Phosphatase 215 units/L (35-129) H 11/26/20 06:42 Total Creatine Kinase 138 units/L (55-170) 11/16/20 10:15 C-Reactive Protein 6.10 mg/dL (0.00-1.30) H 11/29/20 06:19 Total Protein 7.5 g/dL (6.3-8.2) 11/26/20 06:42 Albumin 2.7 g/dL (3.9-5) L 11/26/20 06:42 Albumin/Globulin Ratio 0.6 % 11/26/20 06:42 Vancomycin Trough 9.8 ug/mL (5.0-20.0) 11/18/20 10:10 Random Vancomycin 6.1 ug/mL (0-40.0) 11/21/20 04:45 Elder/IV: Voiding Method Urinal Active Medications - Current Medications Current Medications: Generic Name Dose Route Start Last Admin Trade Name Freq PRN Reason Stop Dose Admin Acetaminophen 650 mg 11/16/20 12:30 11/20/20 12:14 Acetaminophen 325 Mg Tab PO 650 mg Q6H PRN Administration Pain, Mild (1-3) Hydrocodone Bitart/Acetaminophen 1 each 11/16/20 12:23 11/30/20 13:36 Hydrocodone/Acetaminophen 5-325 Mg Tab PO 1 each Q6HR PRN Administration PAIN Albuterol 2.5 mg 11/16/20 12:30 Albuterol 2.5 Mg/3 Ml Nebu IH Q4HRT PRN Shortness Of Breath Aspirin 81 mg 11/28/20 10:00 11/30/20 11:30 Aspirin Ec 81 Mg Tab PO 81 mg QDAY BARRY Administration Benzonatate 100 mg 11/16/20 14:00 12/01/20 06:16 Benzonatate 100 Mg Cap PO 100 mg Q8HR BARRY Administration Clopidogrel Bisulfate 75 mg 11/28/20 10:00 11/30/20 11:30 Clopidogrel 75 Mg Tab PO 75 mg QDAY BARRY Administration Dextrose 50 ml 11/16/20 12:30 Dextrose 50% In Water (25gm) 50 Ml Syringe IV Q30MIN PRN Hypoglycemia Protocol Famotidine 20 mg 11/19/20 10:00 11/30/20 11:31 Famotidine 20 Mg Tab PO 20 mg DAILY BARRY Administration Gabapentin 300 mg 11/16/20 14:00 12/01/20 06:16 Gabapentin 300 Mg Cap PO 300 mg Q8HR BARRY Administration Heparin Sodium (Porcine) 5,000 unit 11/16/20 14:00 12/01/20 06:17 Heparin 5,000 Unit/1 Ml Vial SUB-Q 5,000 unit Q8HR BARRY Administration Hydralazine HCl 100 mg 11/16/20 14:00 12/01/20 06:16 Hydralazine 100 Mg Tab PO 100 mg Q8HR BARRY Administration Hydralazine HCl 10 mg 11/22/20 12:57 11/30/20 01:50 Hydralazine 20 Mg/1 Ml Inj IV 10 mg Q4HR PRN Administration Blood Pressure Hydromorphone HCl 1 mg 11/27/20 12:33 12/01/20 06:17 Hydromorphone 1 Mg/1 Ml Inj IV 1 mg Q2H PRN Administration Pain , Severe (7-10) Sodium Chloride 250 mls @ 250 mls/hr 11/17/20 10:00 11/30/20 22:00 Nacl 0.9% 250ml IV 250 mls/hr Q12HR BARRY Administration Cefepime HCl 2 gm in 100 mls @ 200 mls/hr 11/20/20 15:00 11/30/20 16:07 Cefepime/Ns 2 Gm/100 Ml IV 12/18/20 15:29 200 mls/hr Q24H BARRY Administration Protocol Sodium Chloride 1,000 mls @ 75 mls/hr 11/26/20 13:30 11/30/20 00:33 Nacl 0.9% 1000 Ml IV Infused DIRECT BARRY Infusion Insulin Human Isoph/Insulin Regular 37 unit 11/18/20 17:00 11/30/20 18:06 Insulin Nph/Regular 70/30 Inj SUB-Q 37 unit BIDDIAB BARRY Administration Insulin Human Lispro 0 unit 11/17/20 18:00 12/01/20 08:03 Insulin Lispro 100 Unit/Ml SUB-Q Not Given Q4HR BARRY Protocol Linezolid 600 mg 11/20/20 15:00 11/30/20 22:00 Linezolid 600 Mg Tab PO 12/18/20 22:01 600 mg Q12HR BARRY Administration Protocol Metaxalone 800 mg 11/26/20 10:00 11/26/20 13:41 Metaxalone 800 Mg Tab PO 800 mg Q12H PRN Administration Muscle Spasm Metoprolol Tartrate 25 mg 11/16/20 22:00 11/30/20 22:00 Metoprolol Tartrate 25 Mg Tab PO 25 mg BID BARRY Administration Ondansetron HCl 4 mg 11/16/20 12:30 11/28/20 22:07 Ondansetron 4 Mg/2 Ml Inj IV 4 mg Q8H PRN Administration Nausea And Vomiting Pantoprazole Sodium 40 mg 11/28/20 07:30 11/30/20 11:30 Pantoprazole 40 Mg Tab PO 40 mg QDAC BARRY Administration Pravastatin Sodium 20 mg 11/16/20 22:00 11/30/20 22:00 Pravastatin 20 Mg Tab PO 20 mg QHS BARRY Administration Sodium Chloride 10 ml 11/16/20 22:00 11/30/20 22:00 Sodium Chloride 0.9% 10 Ml Flush Syringe IV 10 ml BID BARRY Administration Sodium Chloride 10 ml 11/16/20 12:07 Sodium Chloride 0.9% 10 Ml Flush Syringe IV PRN PRN LINE FLUSH Nutrition/Malnutrition Assess - Dietary Evaluation Nutrition/Malnutrition Findings: Nutrition Notes Start: 11/23/20 12:36 Freq: Status: Active Protocol: Document 11/30/20 12:53 AT (Rec: 11/30/20 13:03 AT [id number]) Co-Sign 11/30/20 12:53 Nutrition Notes Initial or Follow up Reassessment Current Diagnosis Acute Kidney Injury,CKD(stage I-IV),Diabetes,Sepsis, Hypertension,Heart Failure, Hyperlipidemia Other Pertinent Diagnosis s/p amputation 2 toes on R foot, R foot osteomyelitis, MRSA, PVD Current Diet Cardiac/Consistent CHO Labs/Tests POC BG 192 Pertinent Medications Reviewed Height 6 ft 3 in Weight 130 kg [place] Body Weight (kg) 89.09 BMI 35.8 Weight Status Obese Subjective/Other Information Follow up for stable intakes and ONS tolerance. Observed pt 's tray and noticed pt had eaten 50% of meal and ONS were pilling up in room. Pt states that he does not like the ONS . Food preferences were recorded. Discussed the addition of Yaya with pt to support wound healing. Percent of energy/protein needs met: 54%/49% Burn Absent Trauma Absent GI Symptoms None Current % PO Fair (50-74%) Minimum of two criteria No physical signs of malnutrition #2 Nutrition Diagnosis Increased nutrient needs ( specify in comment below) Diagnosis Progress(for reassessment Continues documentation) Is patient on ventilator? No Is Patient Ambulatory and/or Out of Bed No REE-([place]-St. Jeor-confined to bed) 2721.612 Kcal/Kg value to use for calculation 14 Approximate Energy Requirements Using 1820 kcal/Kg Calculation Used for Recommendations Kcal/kg Additional Notes PRO needs: 88-99 g (0.8-0.9 g/ kg AdBW) Fluid needs: 1 mL/kcal Nutrition Intervention Change Diet Order: Continue current Add Supplement/Snack (indicate name/kcal Yaya BID /protein ) Provides kCal: 190 Provides Protein (gm) 5 Goal #1 Wound healing Goal #2 Meet at least 75% of estimated energy and protein needs Anticipated Discharge Needs: Cardiac/Consistent CHO Follow-Up By: 12/04/20 Additional Comments F/U for Yaya administration, stable intakes
[2020-12-01] MEDS: ASPIRIN EC 81 MG TAB PO SCH (10:14)
[2020-12-01] MEDS: LINEZOLID 600 MG TAB PO SCH ×2 (10:14→21:15)
[2020-12-01] MEDS: CLOPIDOGREL 75 MG TAB PO SCH (10:14)
[2020-12-01] MEDS: FAMOTIDINE 20 MG TAB PO SCH (10:14)
[2020-12-01] MEDS: METOPROLOL TARTRATE 25 MG TAB PO SCH ×2 (10:17→22:00)
[2020-12-01] MEDS: PANTOPRAZOLE 40 MG TAB PO SCH (10:24)
[2020-12-01] MEDS: INSULIN NPH/REGULAR 70/30 INJ SUB-Q SCH ×2 (10:25→17:34)
--- NOTE | 2020-12-01 12:33 | Progress Note ---
Assessment and Plan - Patient Problems (1) Acute kidney injury superimposed on CKD Current Visit: Yes Status: Acute Plan to address problem: Acute kidney injury superimposed on stage IV chronic kidney disease. stable renal function, no acute indication for renal replacement therapy at present. Continue to monitor electrolytes and renal function. (2) Osteomyelitis of foot, right, acute Current Visit: Yes Status: Acute Plan to address problem: Continue antibiotics appropriately adjusted to the degree of renal function. Infectious disease arranging for outpatient antibiotics. (3) Hyperosmolar non-ketotic state in patient with type 2 diabetes mellitus Current Visit: No Status: Acute Plan to address problem: Diabetes management as per primary attending (4) Peripheral vascular disease Current Visit: Yes Status: Chronic Plan to address problem: Status post revascularization to the right foot (5) Hypertensive chronic kidney disease with stage 1 through stage 4 chronic kidney disease, or unspecified chronic kidney disease Current Visit: No Status: Acute Plan to address problem: Follow-up blood pressure on current medications. (6) Anemia in chronic illness Current Visit: Yes Status: Chronic Plan to address problem: Continue supplements and erythropoiesis stimulating agent as indicated. Follow- up hemoglobin Subjective Date of service: 12/01/20 Principal diagnosis: Right foot PVD Interval history: Pt awake, alert, in no acute distress Objective - Vital Signs Vital signs: Vital Signs - 12hr 12/01/20 12/01/20 12/01/20 00:36 05:38 06:17 Temperature 98.2 F 98.0 F Pulse Rate 91 H 85 Respiratory 20 20 20 Rate Respiratory Rate [Right Foot] Blood Pressure 157/82 176/101 O2 Sat by Pulse 100 96 Oximetry 12/01/20 12/01/20 12/01/20 08:19 10:00 10:17 Temperature 98.3 F Pulse Rate 89 89 Respiratory 18 18 Rate Respiratory 20 Rate [Right Foot] Blood Pressure 150/92 150/92 O2 Sat by Pulse 97 Oximetry 12/01/20 12/01/20 10:23 11:18 Temperature 98.0 F Pulse Rate 85 Respiratory 20 18 Rate Respiratory Rate [Right Foot] Blood Pressure 167/91 O2 Sat by Pulse 96 Oximetry - General Appearance General appearance: well-developed, well-nourished, appears stated age EENT: ATNC, PERRL, mucous membranes moist Neck: no JVD Respiratory: Present: Clear to Ascultation Cardiology: regular, S1S2 Gastrointestinal: normoactive bowel sounds Integumentary: no rash, other (Wound vac in place) Neurologic: no focal deficit, alert and oriented x3, strength 5/5, CN 3-12 intact Psychiatric: mood/affect appropriate, cooperative - Lab 11/26/20 06:42 12/01/20 07:10 Most recent lab results Calcium 8.8 mg/dL (8.4-10.2) 12/01/20 07:10 Phosphorus 4.60 mg/dL (2.5-4.5) H 11/29/20 06:19 Magnesium 1.70 mg/dL (1.7-2.3) 11/29/20 06:19 Medications & Allergies - Medications Allergies/Adverse Reactions: Allergies oxycodone [From Percocet] Adverse Reaction (Verified 09/24/20 18:07) Vomiting Home Medications: Home Medications Medication Instructions Recorded Confirmed Last Taken Type Pravastatin [Pravachol] 20 mg PO QHS #30 tablet 04/20/18 11/16/20 Unknown Rx Amlodipine Besylate [Norvasc] 10 mg PO DAILY 12/06/18 11/16/20 Unknown History Gabapentin 300 mg PO Q8HR 12/06/18 11/16/20 Unknown History Albuterol Mdi (or & Nicu Only) 2 puff IH QID PRN #1 inhalation 08/24/20 11/16/20 Unknown Rx [ProAir HFA Inhaler] Benzonatate [Tessalon Perles] 100 mg PO Q8HR #10 capsule 08/24/20 11/16/20 Unknown Rx DAPTOmycin 800 mg IV Q24H vial 09/28/20 11/16/20 Unknown Rx Insulin NPH/Regular [NovoLIN 70/30] 35 unit SUB-Q BIDDIAB #12 ml 09/28/20 11/16/20 Unknown Rx Metoprolol [Lopressor TAB] 25 mg PO BID #60 tablet 09/28/20 11/16/20 Unknown Rx hydrALAZINE [Apresoline TAB] 100 mg PO Q8HR #90 tab 09/28/20 11/16/20 Unknown Rx HYDROcodone/APAP 5-325 [[place] 1 each PO Q6HR PRN #14 tablet 10/13/20 11/16/20 Unknown Rx 5-325 mg TAB] Active Medications: Generic Name Dose Route Start Last Admin Trade Name Freq PRN Reason Stop Dose Admin Acetaminophen 650 mg 11/16/20 12:30 11/20/20 12:14 Acetaminophen 325 Mg Tab PO 650 mg Q6H PRN Administration Pain, Mild (1-3) Hydrocodone Bitart/Acetaminophen 1 each 11/16/20 12:23 11/30/20 13:36 Hydrocodone/Acetaminophen 5-325 Mg Tab PO 1 each Q6HR PRN Administration PAIN Albuterol 2.5 mg 11/16/20 12:30 Albuterol 2.5 Mg/3 Ml Nebu IH Q4HRT PRN Shortness Of Breath Aspirin 81 mg 11/28/20 10:00 12/01/20 10:14 Aspirin Ec 81 Mg Tab PO 81 mg QDAY BARRY Administration Benzonatate 100 mg 11/16/20 14:00 12/01/20 06:16 Benzonatate 100 Mg Cap PO 100 mg Q8HR BARRY Administration Clopidogrel Bisulfate 75 mg 11/28/20 10:00 12/01/20 10:14 Clopidogrel 75 Mg Tab PO 75 mg QDAY BARRY Administration Dextrose 50 ml 11/16/20 12:30 Dextrose 50% In Water (25gm) 50 Ml Syringe IV Q30MIN PRN Hypoglycemia Protocol Famotidine 20 mg 11/19/20 10:00 12/01/20 10:14 Famotidine 20 Mg Tab PO 20 mg DAILY BARRY Administration Gabapentin 300 mg 11/16/20 14:00 12/01/20 06:16 Gabapentin 300 Mg Cap PO 300 mg Q8HR BARRY Administration Heparin Sodium (Porcine) 5,000 unit 11/16/20 14:00 12/01/20 06:17 Heparin 5,000 Unit/1 Ml Vial SUB-Q 5,000 unit Q8HR BARRY Administration Hydralazine HCl 100 mg 11/16/20 14:00 12/01/20 06:16 Hydralazine 100 Mg Tab PO 100 mg Q8HR BARRY Administration Hydralazine HCl 10 mg 11/22/20 12:57 11/30/20 01:50 Hydralazine 20 Mg/1 Ml Inj IV 10 mg Q4HR PRN Administration Blood Pressure Hydromorphone HCl 1 mg 11/27/20 12:33 12/01/20 10:23 Hydromorphone 1 Mg/1 Ml Inj IV 1 mg Q2H PRN Administration Pain , Severe (7-10) Sodium Chloride 250 mls @ 250 mls/hr 11/17/20 10:00 11/30/20 22:00 Nacl 0.9% 250ml IV 250 mls/hr Q12HR BARRY Administration Cefepime HCl 2 gm in 100 mls @ 200 mls/hr 11/20/20 15:00 11/30/20 16:07 Cefepime/Ns 2 Gm/100 Ml IV 12/18/20 15:29 200 mls/hr Q24H BARRY Administration Protocol Sodium Chloride 1,000 mls @ 75 mls/hr 11/26/20 13:30 11/30/20 00:33 Nacl 0.9% 1000 Ml IV Infused DIRECT BARRY Infusion Insulin Human Isoph/Insulin Regular 37 unit 11/18/20 17:00 12/01/20 10:25 Insulin Nph/Regular 70/30 Inj SUB-Q Not Given BIDDIAB BARRY Insulin Human Lispro 0 unit 11/17/20 18:00 12/01/20 10:22 Insulin Lispro 100 Unit/Ml SUB-Q 1 unit Q4HR BARRY Administration Protocol Linezolid 600 mg 11/20/20 15:00 12/01/20 10:14 Linezolid 600 Mg Tab PO 12/18/20 22:01 600 mg Q12HR BARRY Administration Protocol Metaxalone 800 mg 11/26/20 10:00 11/26/20 13:41 Metaxalone 800 Mg Tab PO 800 mg Q12H PRN Administration Muscle Spasm Metoprolol Tartrate 25 mg 11/16/20 22:00 12/01/20 10:17 Metoprolol Tartrate 25 Mg Tab PO 25 mg BID BARRY Administration Ondansetron HCl 4 mg 11/16/20 12:30 11/28/20 22:07 Ondansetron 4 Mg/2 Ml Inj IV 4 mg Q8H PRN Administration Nausea And Vomiting Pantoprazole Sodium 40 mg 11/28/20 07:30 12/01/20 10:24 Pantoprazole 40 Mg Tab PO 40 mg QDAC BARRY Administration Pravastatin Sodium 20 mg 11/16/20 22:00 11/30/20 22:00 Pravastatin 20 Mg Tab PO 20 mg QHS BARRY Administration Sodium Chloride 10 ml 11/16/20 22:00 12/01/20 10:14 Sodium Chloride 0.9% 10 Ml Flush Syringe IV 10 ml BID BARRY Administration Sodium Chloride 10 ml 11/16/20 12:07 Sodium Chloride 0.9% 10 Ml Flush Syringe IV PRN PRN LINE FLUSH
[2020-12-01] MEDS: SODIUM CHLORIDE 0.9% 1000 ML 1,000 ML IV SCH (15:18)
--- NOTE | 2020-12-01 15:52 | Progress Note ---
Assessment and Plan 45-year-old male with PVD and diabetic foot ulcer status post multiple minor amputations with wound VAC placement. Status post revascularization of the right lower extremity with palpable pedal pulses and good healing since revascularization. Card provided. Follow-up with myself in 2 weeks. Continue aspirin, Plavix, and pentoxifylline. No cilostazol due to history of CHF per patient. Subjective Date of service: 12/01/20 Principal diagnosis: Right foot PVD Interval history: Left groin, clean, dry, and intact. Palpable right dorsalis pedis and posterior tibial pulse. Evaluated wound pictures and wound nurse description and the wound bed is now healthy, red, granulating, and closing. Expect wound to ultimately heal. Objective - Constitutional Vitals: Vital Signs - 12hr 12/01/20 12/01/20 12/01/20 05:38 06:17 08:19 Temperature 98.0 F 98.3 F Pulse Rate 85 89 Respiratory 20 20 18 Rate Respiratory Rate [Right Foot] Blood Pressure 176/101 150/92 O2 Sat by Pulse 96 97 Oximetry 12/01/20 12/01/20 12/01/20 10:00 10:17 10:23 Temperature Pulse Rate 89 Respiratory 18 20 Rate Respiratory 20 Rate [Right Foot] Blood Pressure 150/92 O2 Sat by Pulse Oximetry 12/01/20 12/01/20 12/01/20 11:18 14:57 15:18 Temperature 98.0 F 98.6 F Pulse Rate 85 Respiratory 18 20 18 Rate Respiratory Rate [Right Foot] Blood Pressure 167/91 149/93 O2 Sat by Pulse 96 Oximetry General appearance: Present: mild distress (Back pain) - EENT Eyes: EOM intact ENT: hearing intact - Respiratory Respiratory effort: normal Extremities: abnormal (Wound VAC right foot, palpable right pedal pulses, left groin puncture site without pseudoaneurysm or hematoma.) - Psychiatric Psychiatric: appropriate mood/affect, cooperative - Labs CBC & Chem 7: 11/26/20 06:42 12/01/20 07:10 Labs: Abnormal lab results 11/30/20 11/30/20 12/01/20 Range/Units 16:32 21:51 07:10 Sodium 135 L (137-145) mmol/L Carbon Dioxide 20 L (22-30) mmol/L BUN 29 H (9-20) mg/dL Creatinine 3.9 H (0.8-1.3) mg/dL Glucose 153 H (75-100) mg/dL POC Glucose 126 H 205 H (70-105) mg/dL Medications & Allergies - Medications Allergies/Adverse Reactions: Allergies oxycodone [From Percocet] Adverse Reaction (Verified 09/24/20 18:07) Vomiting Home Medications: Home Medications Medication Instructions Recorded Confirmed Last Taken Type Pravastatin [Pravachol] 20 mg PO QHS #30 tablet 04/20/18 11/16/20 Unknown Rx Amlodipine Besylate [Norvasc] 10 mg PO DAILY 12/06/18 11/16/20 Unknown History Gabapentin 300 mg PO Q8HR 12/06/18 11/16/20 Unknown History Albuterol Mdi (or & Nicu Only) 2 puff IH QID PRN #1 inhalation 08/24/20 11/16/20 Unknown Rx [ProAir HFA Inhaler] Benzonatate [Tessalon Perles] 100 mg PO Q8HR #10 capsule 08/24/20 11/16/20 Unknown Rx DAPTOmycin 800 mg IV Q24H vial 09/28/20 11/16/20 Unknown Rx Insulin NPH/Regular [NovoLIN 70/30] 35 unit SUB-Q BIDDIAB #12 ml 09/28/20 11/16/20 Unknown Rx Metoprolol [Lopressor TAB] 25 mg PO BID #60 tablet 09/28/20 11/16/20 Unknown Rx hydrALAZINE [Apresoline TAB] 100 mg PO Q8HR #90 tab 09/28/20 11/16/20 Unknown Rx HYDROcodone/APAP 5-325 [[place] 1 each PO Q6HR PRN #14 tablet 10/13/20 11/16/20 Unknown Rx 5-325 mg TAB] Active Medications: Generic Name Dose Route Start Last Admin Trade Name Freq PRN Reason Stop Dose Admin Acetaminophen 650 mg 11/16/20 12:30 11/20/20 12:14 Acetaminophen 325 Mg Tab PO 650 mg Q6H PRN Administration Pain, Mild (1-3) Hydrocodone Bitart/Acetaminophen 1 each 11/16/20 12:23 11/30/20 13:36 Hydrocodone/Acetaminophen 5-325 Mg Tab PO 1 each Q6HR PRN Administration PAIN Albuterol 2.5 mg 11/16/20 12:30 Albuterol 2.5 Mg/3 Ml Nebu IH Q4HRT PRN Shortness Of Breath Aspirin 81 mg 11/28/20 10:00 12/01/20 10:14 Aspirin Ec 81 Mg Tab PO 81 mg QDAY BARRY Administration Benzonatate 100 mg 11/16/20 14:00 12/01/20 13:26 Benzonatate 100 Mg Cap PO 100 mg Q8HR BARRY Administration Clopidogrel Bisulfate 75 mg 11/28/20 10:00 12/01/20 10:14 Clopidogrel 75 Mg Tab PO 75 mg QDAY BARRY Administration Dextrose 50 ml 11/16/20 12:30 Dextrose 50% In Water (25gm) 50 Ml Syringe IV Q30MIN PRN Hypoglycemia Protocol Famotidine 20 mg 11/19/20 10:00 12/01/20 10:14 Famotidine 20 Mg Tab PO 20 mg DAILY BARRY Administration Gabapentin 300 mg 11/16/20 14:00 12/01/20 13:26 Gabapentin 300 Mg Cap PO 300 mg Q8HR BARRY Administration Heparin Sodium (Porcine) 5,000 unit 11/16/20 14:00 12/01/20 13:26 Heparin 5,000 Unit/1 Ml Vial SUB-Q 5,000 unit Q8HR BARRY Administration Hydralazine HCl 100 mg 11/16/20 14:00 12/01/20 13:26 Hydralazine 100 Mg Tab PO 100 mg Q8HR BARRY Administration Hydralazine HCl 10 mg 11/22/20 12:57 11/30/20 01:50 Hydralazine 20 Mg/1 Ml Inj IV 10 mg Q4HR PRN Administration Blood Pressure Hydromorphone HCl 1 mg 11/27/20 12:33 12/01/20 14:57 Hydromorphone 1 Mg/1 Ml Inj IV 1 mg Q2H PRN Administration Pain , Severe (7-10) Sodium Chloride 250 mls @ 250 mls/hr 11/17/20 10:00 11/30/20 22:00 Nacl 0.9% 250ml IV 250 mls/hr Q12HR BARRY Administration Cefepime HCl 2 gm in 100 mls @ 200 mls/hr 11/20/20 15:00 11/30/20 16:07 Cefepime/Ns 2 Gm/100 Ml IV 12/18/20 15:29 200 mls/hr Q24H BARRY Administration Protocol Sodium Chloride 1,000 mls @ 75 mls/hr 11/26/20 13:30 12/01/20 15:18 Nacl 0.9% 1000 Ml IV 75 mls/hr DIRECT BARRY Administration Insulin Human Isoph/Insulin Regular 37 unit 11/18/20 17:00 12/01/20 10:25 Insulin Nph/Regular 70/30 Inj SUB-Q Not Given BIDDIAB BARRY Insulin Human Lispro 0 unit 11/17/20 18:00 12/01/20 13:27 Insulin Lispro 100 Unit/Ml SUB-Q Not Given Q4HR BARRY Protocol Linezolid 600 mg 11/20/20 15:00 12/01/20 10:14 Linezolid 600 Mg Tab PO 12/18/20 22:01 600 mg Q12HR BARRY Administration Protocol Metaxalone 800 mg 11/26/20 10:00 11/26/20 13:41 Metaxalone 800 Mg Tab PO 800 mg Q12H PRN Administration Muscle Spasm Metoprolol Tartrate 25 mg 11/16/20 22:00 12/01/20 10:17 Metoprolol Tartrate 25 Mg Tab PO 25 mg BID BARYR Administration Ondansetron HCl 4 mg 11/16/20 12:30 11/28/20 22:07 Ondansetron 4 Mg/2 Ml Inj IV 4 mg Q8H PRN Administration Nausea And Vomiting Pantoprazole Sodium 40 mg 11/28/20 07:30 12/01/20 10:24 Pantoprazole 40 Mg Tab PO 40 mg QDAC BARRY Administration Pravastatin Sodium 20 mg 11/16/20 22:00 11/30/20 22:00 Pravastatin 20 Mg Tab PO 20 mg QHS BARRY Administration Sodium Chloride 10 ml 11/16/20 22:00 12/01/20 10:14 Sodium Chloride 0.9% 10 Ml Flush Syringe IV 10 ml BID BARRY Administration Sodium Chloride 10 ml 11/16/20 12:07 Sodium Chloride 0.9% 10 Ml Flush Syringe IV PRN PRN LINE FLUSH
[2020-12-01] MEDS: PENTOXIFYLLINE ER 400 MG TAB PO SCH (17:34)
[2020-12-01] MEDS: CEFEPIME/NS 2 GM/100 ML 2 GM/100 ML BAG IV SCH (17:34)
[2020-12-01] MEDS: PRAVASTATIN 20 MG TAB PO SCH (21:15)
[2020-12-02] MEDS: HYDROmorphone 1 MG/1 ML INJ IV PRN ×5 (01:15→22:47)
[2020-12-02] MEDS: INSULIN LISPRO 100 UNIT/ML SUB-Q SCH ×6 (02:00→22:54)
[2020-12-02] MEDS: hydrALAZINE 100 MG TAB PO SCH ×3 (05:20→22:43)
[2020-12-02] MEDS: BENZONATATE 100 MG CAP PO SCH ×3 (05:20→23:03)
[2020-12-02] MEDS: GABAPENTIN 300 MG CAP PO SCH ×3 (05:20→22:44)
[2020-12-02] MEDS: HEPARIN 5,000 UNIT/1 ML VIAL SUB-Q SCH ×3 (05:21→22:45)
--- NOTE | 2020-12-02 08:02 | Progress Note ---
Assessment and Plan Assessment and plan: --Back pain: L4 compression fracture age-indeterminate Current Visit: Yes Status: Acute Plan to address problem: X-ray lumbosacral spine; mild L4 compression fracture age-indeterminate MRI lumbar spine, to rule out osteomyelitis Pain management, PT OT, orthopedic consult --Acute osteomyelitis of right foot toes, Current Visit: Yes Status: Acute Plan to address problem: s/p partial TMA of the right foot involving the third fourth and fifth toes. Continue postop and wound care, wound VAC per surgery Physical therapy occupational therapy when patient is ready --Peripheral vascular disease Current Visit: Yes Status: Acute Plan to address problem: s/p revascularization and successful latter day of three-vessel runoff to the right foot per vascular/IR Started aspirin and Plavix --Febrile illness, POA; resolved Current Visit: Yes Status: Acute Plan to address problem: Afebrile last 24 hours, Follow cultures ID evaluated the patient, adjusted the antibiotics --Sepsis/due to osteomyelitis foot/toes Current Visit: Yes Status: Acute Plan to address problem: Status post TMA second and third right metatarsal on IV antibiotics cefepime, Flagyl and linezolid ID DC'd Flagyl advised to continue cefepime and linezolid while in hospital At discharge IV cefepime plus daptomycin for 4 weeks ending 12/18/2020 Case management to assist with home health, and home antibiotics Patient has poor understanding of the seriousness of osteomyelitis and long-term antibiotics Overall poor prognosis given his non compliance and lack of insight with regards to the disease process Strongly advised to comply with medications. --Right hip and back pain; Current Visit: Yes Status: Acute Plan to address problem: Pain medications,right hip findings reviewed No acute abnormality, patient will follow with surgeon/orthopedic L4 mild compression fracture age indeterminate, Ortho consult. --Acute on CKD progressing to stage IV Current Visit: Yes Status: Acute Plan to address problem: Due to vasomotor nephropathy avoid nephrotoxins, medications are renally dosed --h/o MRSA cellulitis Current Visit: No Status: Acute Plan to address problem: CBC, CMP, blood culture, wound culture, IV antibiotic therapy, supportive care. Continue linezolid --Metabolic acidosis Current Visit: No Status: Acute Plan to address problem: Secondary to acute on chronic kidney disease Nephrology following --Diabetes mellitus with hyperglycemia Current Visit: No Status: Chronic Plan to address problem: Accu-Chek sliding scale coverage ADA diet Insulin as needed -- HLD (hyperlipidemia) Current Visit: No Status: Chronic Plan to address problem: Lipid panel, statin therapy, supportive care. Low-cholesterol diet, --hypertension Current Visit: No Status: Chronic Plan to address problem: continue antihypertensives Adjust blood pressure medication -- DVT prophylaxis Current Visit: Yes Status: Acute Plan to address problem: Heparin subcu Continue wound care. PT OT when patient is able to tolerate DC planning per case management ID recommended long-term antibiotics for total of 4 weeks Patient has midline placed Plan of care reviewed with the patient and his nurse Will follow MRI findings, follow Ortho evaluation and recommendations Disposition per surgery. Patient refuses LS MRI Has midkine IV abx arranged Able to walk Maybe discharged tomorrow after talking with employment agency manager Subjective Date of service: 11/30/20 Principal diagnosis: Right foot PVD Interval history: Brief history and hospital course; patient was admitted with acute osteomyelitis of the right foot third and fourth toes Surgeon has evaluated, patient underwent TMA of the both the toes, with wound VAC, ID evaluated the patient Recommend long-term antibiotics for total 4 weeks, patient received midline, disposition per surgery. Patient is fused lumbar spine MRI to rule out osteomyelitis. 11/20/2020; patient is febrile T-max 102 F, patient is on empiric antibiotics, del valle culture sent, ID consulted For choice and duration of antibiotics., Will request PT and patient is able to tolerate physical therapy per surgeon 11/21/2020; patient feels slightly better continues to have severe pain, asking for more pain medications Vital signs reviewed, wound VAC applied to the right foot surgical wound. 11/22/2020; patient complains of some right hip pain and low back pain No history of fall, patient gives history of back surgery Will check x-ray hip and back 11/23/2020; hip x-ray no acute abnormality, lumbosacral spine x-ray all changes Patient need to follow-up with orthopedic surgeon upon discharge Continue antibiotics, wound care, follow surgery recommendations 11/24/2020; patient is sleeping, nurse reports that patient complains of pain On pain medications, antibiotics, surgery and ID following ID recommend long-term anticoagulation total for 4 weeks ending on 12/18/2020 11/25/2020; patient is on long-term antibiotics recommended by ID for total 4 weeks ending on 12/18/2020 Continue wound care, wound VAC in place, disposition per surgery DC planning per case management Patient refused midline placement for long-term antibiotics will check with surgeon Dr. Herrera regarding DC planning 11/26/2020; patient is reevaluated by IR/vascular for possible angiogram tomorrow Patient also complains of vague back pain, lumbosacral spine mild L4 compression fracture age-indeterminate We will consult orthopedic 11/27/2020; patient had revascularization procedure per vascular in/IR started on aspirin and Plavix Also requested MRI lumbar spine to rule out osteomyelitis 11/28/2020; patient refused MRI lumbar spine and also some medications Awaiting Ortho evaluation recommendations, continue current management 11/29/2020; patient refused MRI of the lumbar spine, patient is receiving long- term antibiotics Disposition per surgery 11/30/2020; continue with IV antibiotics, patient refused MRI of the lumbar spine. Disposition is per surgery recommendations. 12/01/2020; patient will be discharged home once case management arranged HH for IV antibiotics. 12/02/2020; patient will be here until tomorrow, home IV antibiotics will not be ready until tomorrow. History Interval history: Patient was seen and evaluated this morning Patient did not have any complaints MRI was not done, patient stated he could not tolerate it because of back pain Hospitalist Physical - Physical exam Narrative exam: Not in cardiopulmonary distress. The patient appeared well nourished and normally developed. Vital signs as documented. Head exam is unremarkable. No scleral icterus . Neck is without jugular venous distension, thyromegaly, or carotid bruits. Lungs are clear to auscultation. Cardiac exam reveals regular rate and Rhythm. Abdominal exam reveals normal bowel sounds, nontender, no organomegaly. Musculoskeletal; R foot VAC + AEROSOL SUPERVISOR: Alert and oriented 3. No focal weakness. - Constitutional Vitals: Temp Pulse Resp BP Pulse Ox 97.9 F 91 H 22 174/110 96 12/02/20 05:31 12/02/20 05:31 12/02/20 05:31 12/02/20 05:31 12/02/20 05:31 General appearance: Present: mild distress (Back pain) Results - Labs CBC & Chem 7: 11/26/20 06:42 12/01/20 07:10 Labs: Laboratory Last Values WBC 15.2 K/mm3 (4.5-11.0) H 11/26/20 06:42 RBC 3.48 M/mm3 (3.65-5.03) L 11/26/20 06:42 Hgb 8.3 gm/dl (11.8-15.2) L 11/26/20 06:42 Hct 26.9 % (35.5-45.6) L 11/26/20 06:42 MCV 77 fl (84-94) L 11/26/20 06:42 MCH 24 pg (28-32) L 11/26/20 06:42 MCHC 31 % (32-34) L 11/26/20 06:42 RDW 19.2 % (13.2-15.2) H 11/26/20 06:42 Plt Count 585 K/mm3 (140-440) H 11/26/20 06:42 Lymph % (Auto) 14.5 % (13.4-35.0) 11/26/20 06:42 Whitman % (Auto) 7.9 % (0.0-7.3) H 11/26/20 06:42 Eos % (Auto) 1.4 % (0.0-4.3) 11/26/20 06:42 Baso % (Auto) 0.7 % (0.0-1.8) 11/26/20 06:42 Lymph # (Auto) 2.2 K/mm3 (1.2-5.4) 11/26/20 06:42 Whitman # (Auto) 1.2 K/mm3 (0.0-0.8) H 11/26/20 06:42 Eos # (Auto) 0.2 K/mm3 (0.0-0.4) 11/26/20 06:42 Baso # (Auto) 0.1 K/mm3 (0.0-0.1) 11/26/20 06:42 Add Manual Diff Complete 11/22/20 05:26 Total Counted 100 11/22/20 05:26 Seg Neutrophils % 75.5 % (40.0-70.0) H 11/26/20 06:42 Seg Neuts % (Manual) 76.0 % (40.0-70.0) H 11/22/20 05:26 Lymphocytes % (Manual) 13.0 % (13.4-35.0) L 11/22/20 05:26 Monocytes % (Manual) 7.0 % (0.0-7.3) 11/22/20 05:26 Eosinophils % (Manual) 2.0 % (0.0-4.3) 11/22/20 05:26 Metamyelocytes % 1.0 % 11/22/20 05:26 Myelocytes % 1.0 % 11/22/20 05:26 Nucleated RBC % Not Reportable 11/22/20 05:26 Seg Neutrophils # 11.5 K/mm3 (1.8-7.7) H 11/26/20 06:42 Seg Neutrophils # Man 16.0 K/mm3 (1.8-7.7) H 11/22/20 05:26 Band Neutrophils # 0.0 K/mm3 11/22/20 05:26 Lymphocytes # (Manual) 2.7 K/mm3 (1.2-5.4) 11/22/20 05:26 Abs React Lymphs (Man) 0.0 K/mm3 11/22/20 05:26 Monocytes # (Manual) 1.5 K/mm3 (0.0-0.8) H 11/22/20 05:26 Eosinophils # (Manual) 0.4 K/mm3 (0.0-0.4) 11/22/20 05:26 Basophils # (Manual) 0.0 K/mm3 (0.0-0.1) 11/22/20 05:26 Metamyelocytes # 0.2 K/mm3 11/22/20 05:26 Myelocytes # 0.2 K/mm3 11/22/20 05:26 Promyelocytes # 0.0 K/mm3 11/22/20 05:26 Blast Cells # 0.0 K/mm3 11/22/20 05:26 WBC Morphology Not Reportable 11/22/20 05:26 Hypersegmented Neuts Not Reportable 11/22/20 05:26 Hyposegmented Neuts Not Reportable 11/22/20 05:26 Hypogranular Neuts Not Reportable 11/22/20 05:26 Smudge Cells Not Reportable 11/22/20 05:26 Toxic Granulation Not Reportable 11/22/20 05:26 Toxic Vacuolation Not Reportable 11/22/20 05:26 Dohle Bodies Not Reportable 11/22/20 05:26 Pelger-Huet Anomaly Not Reportable 11/22/20 05:26 Shayla Rods Not Reportable 11/22/20 05:26 Platelet Estimate Consistent w auto 11/22/20 05:26 Clumped Platelets Not Reportable 11/22/20 05:26 Plt Clumps, EDTA Not Reportable 11/22/20 05:26 Large Platelets Not Reportable 11/22/20 05:26 Giant Platelets Not Reportable 11/22/20 05:26 Platelet Satelliting Not Reportable 11/22/20 05:26 Plt Morphology Comment Not Reportable 11/22/20 05:26 RBC Morphology Not Reportable 11/22/20 05:26 Dimorphic RBCs Not Reportable 11/22/20 05:26 Polychromasia Not Reportable 11/22/20 05:26 Hypochromasia 1+ 11/22/20 05:26 Poikilocytosis Not Reportable 11/22/20 05:26 Anisocytosis Not Reportable 11/22/20 05:26 Microcytosis Not Reportable 11/22/20 05:26 Macrocytosis Not Reportable 11/22/20 05:26 Spherocytes Not Reportable 11/22/20 05:26 Pappenheimer Bodies Not Reportable 11/22/20 05:26 Sickle Cells Not Reportable 11/22/20 05:26 Target Cells Rare 11/22/20 05:26 Tear Drop Cells Not Reportable 11/22/20 05:26 Ovalocytes Not Reportable 11/22/20 05:26 Helmet Cells Not Reportable 11/22/20 05:26 [place] Bodies Not Reportable 11/22/20 05:26 Stewart Rings Not Reportable 11/22/20 05:26 Ricky Cells Not Reportable 11/22/20 05:26 Bite Cells Not Reportable 11/22/20 05:26 Crenated Cell Not Reportable 11/22/20 05:26 Elliptocytes Not Reportable 11/22/20 05:26 Acanthocytes (Spur) Not Reportable 11/22/20 05:26 Rouleaux Not Reportable 11/22/20 05:26 Hemoglobin C Crystals Not Reportable 11/22/20 05:26 Schistocytes Not Reportable 11/22/20 05:26 Malaria parasites Not Reportable 11/22/20 05:26 Cristhian Bodies Not Reportable 11/22/20 05:26 Hem Pathologist Commnt No 11/22/20 05:26 PT 15.1 Sec. (12.2-14.9) H 11/16/20 10:15 INR 1.19 (0.87-1.13) H 11/16/20 10:15 APTT 37.0 Sec. (24.2-36.6) H 11/16/20 10:15 VBG pH 7.332 (7.320-7.420) 11/16/20 10:15 Sodium 135 mmol/L (137-145) L 12/01/20 07:10 Potassium 4.7 mmol/L (3.6-5.0) 12/01/20 07:10 Chloride 105.9 mmol/L (98-107) 12/01/20 07:10 Carbon Dioxide 20 mmol/L (22-30) L 12/01/20 07:10 Anion Gap 14 mmol/L 12/01/20 07:10 BUN 29 mg/dL (9-20) H 12/01/20 07:10 Creatinine 3.9 mg/dL (0.8-1.3) H 12/01/20 07:10 Estimated GFR 20 ml/min 12/01/20 07:10 BUN/Creatinine Ratio 7 % 12/01/20 07:10 Glucose 153 mg/dL (75-100) H 12/01/20 07:10 POC Glucose 118 mg/dL (70-105) H 12/01/20 22:11 Lactic Acid 1.00 mmol/L (0.7-2.0) 11/17/20 05:10 Calcium 8.8 mg/dL (8.4-10.2) 12/01/20 07:10 Phosphorus 4.60 mg/dL (2.5-4.5) H 11/29/20 06:19 Magnesium 1.70 mg/dL (1.7-2.3) 11/29/20 06:19 Total Bilirubin 0.30 mg/dL (0.1-1.2) 11/26/20 06:42 Direct Bilirubin 0.5 mg/dL (0-0.2) H 11/16/20 10:15 Indirect Bilirubin 0.2 mg/dL 11/16/20 10:15 AST 28 units/L (5-40) 11/26/20 06:42 ALT 24 units/L (7-56) 11/26/20 06:42 Alkaline Phosphatase 215 units/L (35-129) H 11/26/20 06:42 Total Creatine Kinase 138 units/L (55-170) 11/16/20 10:15 C-Reactive Protein 6.10 mg/dL (0.00-1.30) H 11/29/20 06:19 Total Protein 7.5 g/dL (6.3-8.2) 11/26/20 06:42 Albumin 2.7 g/dL (3.9-5) L 11/26/20 06:42 Albumin/Globulin Ratio 0.6 % 11/26/20 06:42 Vancomycin Trough 9.8 ug/mL (5.0-20.0) 11/18/20 10:10 Random Vancomycin 6.1 ug/mL (0-40.0) 11/21/20 04:45 Elder/IV: Voiding Method Urinal Active Medications - Current Medications Current Medications: Generic Name Dose Route Start Last Admin Trade Name Freq PRN Reason Stop Dose Admin Acetaminophen 650 mg 11/16/20 12:30 11/20/20 12:14 Acetaminophen 325 Mg Tab PO 650 mg Q6H PRN Administration Pain, Mild (1-3) Hydrocodone Bitart/Acetaminophen 1 each 11/16/20 12:23 11/30/20 13:36 Hydrocodone/Acetaminophen 5-325 Mg Tab PO 1 each Q6HR PRN Administration PAIN Albuterol 2.5 mg 11/16/20 12:30 Albuterol 2.5 Mg/3 Ml Nebu Q4HRT PRN Shortness Of Breath Aspirin 81 mg 11/28/20 10:00 12/01/20 10:14 Aspirin Ec 81 Mg Tab PO 81 mg QDAY BARRY Administration Benzonatate 100 mg 11/16/20 14:00 12/02/20 05:20 Benzonatate 100 Mg Cap PO 100 mg Q8HR BARRY Administration Clopidogrel Bisulfate 75 mg 11/28/20 10:00 12/01/20 10:14 Clopidogrel 75 Mg Tab PO 75 mg QDAY BARRY Administration Dextrose 50 ml 11/16/20 12:30 Dextrose 50% In Water (25gm) 50 Ml Syringe IV Q30MIN PRN Hypoglycemia Protocol Famotidine 20 mg 11/19/20 10:00 12/01/20 10:14 Famotidine 20 Mg Tab PO 20 mg DAILY BARRY Administration Gabapentin 300 mg 11/16/20 14:00 12/02/20 05:20 Gabapentin 300 Mg Cap PO 300 mg Q8HR BARRY Administration Heparin Sodium (Porcine) 5,000 unit 11/16/20 14:00 12/02/20 05:21 Heparin 5,000 Unit/1 Ml Vial SUB-Q 5,000 unit Q8HR BARRY Administration Hydralazine HCl 100 mg 11/16/20 14:00 12/02/20 05:20 Hydralazine 100 Mg Tab PO 100 mg Q8HR BARRY Administration Hydralazine HCl 10 mg 11/22/20 12:57 11/30/20 01:50 Hydralazine 20 Mg/1 Ml Inj IV 10 mg Q4HR PRN Administration Blood Pressure Hydromorphone HCl 1 mg 11/27/20 12:33 12/02/20 05:11 Hydromorphone 1 Mg/1 Ml Inj IV 1 mg Q2H PRN Administration Pain , Severe (7-10) Sodium Chloride 250 mls @ 250 mls/hr 11/17/20 10:00 11/30/20 22:00 Nacl 0.9% 250ml IV 250 mls/hr Q12HR BARRY Administration Cefepime HCl 2 gm in 100 mls @ 200 mls/hr 11/20/20 15:00 12/01/20 17:34 Cefepime/Ns 2 Gm/100 Ml IV 12/18/20 15:29 200 mls/hr Q24H BARRY Administration Protocol Sodium Chloride 1,000 mls @ 75 mls/hr 11/26/20 13:30 12/01/20 15:18 Nacl 0.9% 1000 Ml IV 75 mls/hr DIRECT BARRY Administration Insulin Human Isoph/Insulin Regular 37 unit 11/18/20 17:00 12/01/20 17:34 Insulin Nph/Regular 70/30 Inj SUB-Q 37 unit BIDDIAB BARRY Administration Insulin Human Lispro 0 unit 11/17/20 18:00 12/02/20 02:00 Insulin Lispro 100 Unit/Ml SUB-Q Not Given Q4HR BARRY Protocol Linezolid 600 mg 11/20/20 15:00 12/01/20 21:15 Linezolid 600 Mg Tab PO 12/18/20 22:01 600 mg Q12HR BARRY Administration Protocol Metaxalone 800 mg 11/26/20 10:00 11/26/20 13:41 Metaxalone 800 Mg Tab PO 800 mg Q12H PRN Administration Muscle Spasm Metoprolol Tartrate 25 mg 11/16/20 22:00 12/01/20 22:00 Metoprolol Tartrate 25 Mg Tab PO 25 mg BID BARRY Administration Ondansetron HCl 4 mg 11/16/20 12:30 11/28/20 22:07 Ondansetron 4 Mg/2 Ml Inj IV 4 mg Q8H PRN Administration Nausea And Vomiting Pantoprazole Sodium 40 mg 11/28/20 07:30 12/01/20 10:24 Pantoprazole 40 Mg Tab PO 40 mg QDAC BARRY Administration Pentoxifylline 400 mg 12/01/20 16:00 12/01/20 17:34 Pentoxifylline Er 400 Mg Tab PO 400 mg DAILY BARRY Administration Pravastatin Sodium 20 mg 11/16/20 22:00 12/01/20 21:15 Pravastatin 20 Mg Tab PO 20 mg QHS BRARY Administration Sodium Chloride 10 ml 11/16/20 22:00 12/01/20 22:00 Sodium Chloride 0.9% 10 Ml Flush Syringe IV 10 ml BID BARRY Administration Sodium Chloride 10 ml 11/16/20 12:07 Sodium Chloride 0.9% 10 Ml Flush Syringe IV PRN PRN LINE FLUSH Nutrition/Malnutrition Assess - Dietary Evaluation Nutrition/Malnutrition Findings: Nutrition Notes Start: 11/23/20 12:36 Freq: Status: Active Protocol: Document 11/30/20 12:53 AT (Rec: 11/30/20 13:03 AT [id number]) Co-Sign 11/30/20 12:53 MK Nutrition Notes Initial or Follow up Reassessment Current Diagnosis Acute Kidney Injury,CKD(stage I-IV),Diabetes,Sepsis, Hypertension,Heart Failure, Hyperlipidemia Other Pertinent Diagnosis s/p amputation 2 toes on R foot, R foot osteomyelitis, MRSA, PVD Current Diet Cardiac/Consistent CHO Labs/Tests POC BG 192 Pertinent Medications Reviewed Height 6 ft 3 in Weight 130 kg [place] Body Weight (kg) 89.09 BMI 35.8 Weight Status Obese Subjective/Other Information Follow up for stable intakes and ONS tolerance. Observed pt 's tray and noticed pt had eaten 50% of meal and ONS were pilling up in room. Pt states that he does not like the ONS . Food preferences were recorded. Discussed the addition of Yaya with pt to support wound healing. Percent of energy/protein needs met: 54%/49% Burn Absent Trauma Absent GI Symptoms None Current % PO Fair (50-74%) Minimum of two criteria No physical signs of malnutrition #2 Nutrition Diagnosis Increased nutrient needs ( specify in comment below) Diagnosis Progress(for reassessment Continues documentation) Is patient on ventilator? No Is Patient Ambulatory and/or Out of Bed No REE-([place]-St. Jeor-confined to bed) 2721.612 Kcal/Kg value to use for calculation 14 Approximate Energy Requirements Using 1820 kcal/Kg Calculation Used for Recommendations Kcal/kg Additional Notes PRO needs: 88-99 g (0.8-0.9 g/ kg AdBW) Fluid needs: 1 mL/kcal Nutrition Intervention Change Diet Order: Continue current Add Supplement/Snack (indicate name/kcal Yaya BID /protein ) Provides kCal: 190 Provides Protein (gm) 5 Goal #1 Wound healing Goal #2 Meet at least 75% of estimated energy and protein needs Anticipated Discharge Needs: Cardiac/Consistent CHO Follow-Up By: 12/04/20 Additional Comments F/U for Yaya administration, stable intakes
[2020-12-02] MEDS: PANTOPRAZOLE 40 MG TAB PO SCH (08:58)
[2020-12-02] MEDS: INSULIN NPH/REGULAR 70/30 INJ SUB-Q SCH ×2 (09:00→16:15)
[2020-12-02] MEDS: LINEZOLID 600 MG TAB PO SCH ×2 (09:01→22:43)
[2020-12-02] MEDS: METOPROLOL TARTRATE 25 MG TAB PO SCH ×2 (09:01→22:44)
[2020-12-02] MEDS: ASPIRIN EC 81 MG TAB PO SCH (09:01)
[2020-12-02] MEDS: FAMOTIDINE 20 MG TAB PO SCH (09:02)
[2020-12-02] MEDS: CLOPIDOGREL 75 MG TAB PO SCH (09:02)
[2020-12-02] MEDS: PENTOXIFYLLINE ER 400 MG TAB PO SCH (09:07)
[2020-12-02] MEDS: hydrALAZINE 20 MG/1 ML INJ IV PRN (13:42)
[2020-12-02] MEDS: HYDROcodone/ACETAMINOPHEN 5-325 MG TAB PO PRN (13:55)
[2020-12-02] MEDS: CEFEPIME/NS 2 GM/100 ML 2 GM/100 ML BAG IV SCH (13:59)
[2020-12-02] MEDS: PRAVASTATIN 20 MG TAB PO SCH (22:43)
[2020-12-03] MEDS: HYDROmorphone 1 MG/1 ML INJ IV PRN ×4 (03:08→15:15)
[2020-12-03] MEDS: BENZONATATE 100 MG CAP PO SCH ×2 (06:34→15:15)
[2020-12-03] MEDS: HEPARIN 5,000 UNIT/1 ML VIAL SUB-Q SCH ×2 (06:34→13:06)
[2020-12-03] MEDS: hydrALAZINE 100 MG TAB PO SCH ×2 (06:34→13:03)
[2020-12-03] MEDS: GABAPENTIN 300 MG CAP PO SCH ×2 (06:34→13:03)
[2020-12-03] MEDS: INSULIN LISPRO 100 UNIT/ML SUB-Q SCH ×4 (06:36→15:10)
[2020-12-03] MEDS: hydrALAZINE 20 MG/1 ML INJ IV PRN (09:13)
[2020-12-03] MEDS: PENTOXIFYLLINE ER 400 MG TAB PO SCH (09:13)
[2020-12-03] MEDS: INSULIN NPH/REGULAR 70/30 INJ SUB-Q SCH ×2 (09:14→17:23)
[2020-12-03] MEDS: CLOPIDOGREL 75 MG TAB PO SCH (09:14)
[2020-12-03] MEDS: PANTOPRAZOLE 40 MG TAB PO SCH (09:14)
[2020-12-03] MEDS: FAMOTIDINE 20 MG TAB PO SCH (09:14)
[2020-12-03] MEDS: ASPIRIN EC 81 MG TAB PO SCH (09:14)
[2020-12-03] MEDS: LINEZOLID 600 MG TAB PO SCH (09:14)
[2020-12-03] MEDS: METOPROLOL TARTRATE 25 MG TAB PO SCH (09:14)
--- NOTE | 2020-12-03 11:01 | Progress Note ---
Assessment and Plan Assessment and plan: --Back pain: L4 compression fracture age-indeterminate Current Visit: Yes Status: Acute Plan to address problem: X-ray lumbosacral spine; mild L4 compression fracture age-indeterminate MRI lumbar spine, to rule out osteomyelitis Pain management, PT OT, orthopedic consult --Acute osteomyelitis of right foot toes, Current Visit: Yes Status: Acute Plan to address problem: s/p partial TMA of the right foot involving the third fourth and fifth toes. Continue postop and wound care, wound VAC per surgery Physical therapy occupational therapy when patient is ready --Peripheral vascular disease Current Visit: Yes Status: Acute Plan to address problem: s/p revascularization and successful church of three-vessel runoff to the right foot per vascular/IR Started aspirin and Plavix --Febrile illness, POA; resolved Current Visit: Yes Status: Acute Plan to address problem: Afebrile last 24 hours, Follow cultures ID evaluated the patient, adjusted the antibiotics --Sepsis/due to osteomyelitis foot/toes Current Visit: Yes Status: Acute Plan to address problem: Status post TMA second and third right metatarsal on IV antibiotics cefepime, Flagyl and linezolid ID DC'd Flagyl advised to continue cefepime and linezolid while in hospital At discharge IV cefepime plus daptomycin for 4 weeks ending 12/18/2020 Case management to assist with home health, and home antibiotics Patient has poor understanding of the seriousness of osteomyelitis and long-term antibiotics Overall poor prognosis given his non compliance and lack of insight with regards to the disease process Strongly advised to comply with medications. --Right hip and back pain; Current Visit: Yes Status: Acute Plan to address problem: Pain medications,right hip findings reviewed No acute abnormality, patient will follow with surgeon/orthopedic L4 mild compression fracture age indeterminate, Ortho consult. --Acute on CKD progressing to stage IV Current Visit: Yes Status: Acute Plan to address problem: Due to vasomotor nephropathy avoid nephrotoxins, medications are renally dosed --h/o MRSA cellulitis Current Visit: No Status: Acute Plan to address problem: CBC, CMP, blood culture, wound culture, IV antibiotic therapy, supportive care. Continue linezolid --Metabolic acidosis Current Visit: No Status: Acute Plan to address problem: Secondary to acute on chronic kidney disease Nephrology following --Diabetes mellitus with hyperglycemia Current Visit: No Status: Chronic Plan to address problem: Accu-Chek sliding scale coverage ADA diet Insulin as needed -- HLD (hyperlipidemia) Current Visit: No Status: Chronic Plan to address problem: Lipid panel, statin therapy, supportive care. Low-cholesterol diet, --hypertension Current Visit: No Status: Chronic Plan to address problem: continue antihypertensives Adjust blood pressure medication -- DVT prophylaxis Current Visit: Yes Status: Acute Plan to address problem: Heparin subcu Continue wound care. PT OT when patient is able to tolerate DC planning per case management ID recommended long-term antibiotics for total of 4 weeks Patient has midline placed Plan of care reviewed with the patient and his nurse Will follow MRI findings, follow Ortho evaluation and recommendations Disposition per surgery. Patient refuses LS MRI Has midkine IV abx arranged Able to walk Maybe discharged tomorrow after talking with [employer] Subjective Date of service: 11/30/20 Principal diagnosis: Right foot PVD Interval history: Brief history and hospital course; patient was admitted with acute osteomyelitis of the right foot third and fourth toes Surgeon has evaluated, patient underwent TMA of the both the toes, with wound VAC, ID evaluated the patient Recommend long-term antibiotics for total 4 weeks, patient received midline, disposition per surgery. Patient is fused lumbar spine MRI to rule out osteomyelitis. 11/20/2020; patient is febrile T-max 102 F, patient is on empiric antibiotics, del valle culture sent, ID consulted For choice and duration of antibiotics., Will request PT and patient is able to tolerate physical therapy per surgeon 11/21/2020; patient feels slightly better continues to have severe pain, asking for more pain medications Vital signs reviewed, wound VAC applied to the right foot surgical wound. 11/22/2020; patient complains of some right hip pain and low back pain No history of fall, patient gives history of back surgery Will check x-ray hip and back 11/23/2020; hip x-ray no acute abnormality, lumbosacral spine x-ray all changes Patient need to follow-up with orthopedic surgeon upon discharge Continue antibiotics, wound care, follow surgery recommendations 11/24/2020; patient is sleeping, nurse reports that patient complains of pain On pain medications, antibiotics, surgery and ID following ID recommend long-term anticoagulation total for 4 weeks ending on 12/18/2020 11/25/2020; patient is on long-term antibiotics recommended by ID for total 4 weeks ending on 12/18/2020 Continue wound care, wound VAC in place, disposition per surgery DC planning per case management Patient refused midline placement for long-term antibiotics will check with surgeon Dr. Herrera regarding DC planning 11/26/2020; patient is reevaluated by IR/vascular for possible angiogram tomorrow Patient also complains of vague back pain, lumbosacral spine mild L4 compression fracture age-indeterminate We will consult orthopedic 11/27/2020; patient had revascularization procedure per vascular in/IR started on aspirin and Plavix Also requested MRI lumbar spine to rule out osteomyelitis 11/28/2020; patient refused MRI lumbar spine and also some medications Awaiting Ortho evaluation recommendations, continue current management 11/29/2020; patient refused MRI of the lumbar spine, patient is receiving long- term antibiotics Disposition per surgery 11/30/2020; continue with IV antibiotics, patient refused MRI of the lumbar spine. Disposition is per surgery recommendations. 12/01/2020; patient will be discharged home once case management arranged for IV antibiotics. 12/02/2020; patient will be here until tomorrow, home IV antibiotics will not be ready until tomorrow. 12/03/2020; patient will be discharged once home IV antibiotics are arranged. History Interval history: Patient was seen and evaluated this morning Patient did not have any complaints MRI was not done, patient stated he could not tolerate it because of back pain Hospitalist Physical - Physical exam Narrative exam: Not in cardiopulmonary distress. The patient appeared well nourished and normally developed. Vital signs as documented. Head exam is unremarkable. No scleral icterus . Neck is without jugular venous distension, thyromegaly, or carotid bruits. Lungs are clear to auscultation. Cardiac exam reveals regular rate and Rhythm. Abdominal exam reveals normal bowel sounds, nontender, no organomegaly. 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 No focal weakness. - Constitutional Vitals: Temp Pulse Resp BP Pulse Ox 98.4 F 94 H 18 181/109 99 12/03/20 08:05 12/03/20 08:05 12/03/20 08:05 12/03/20 08:05 12/03/20 08:05 General appearance: Present: mild distress (Back pain) Results - Labs CBC & Chem 7: 11/26/20 06:42 12/01/20 07:10 Labs: Laboratory Last Values WBC 15.2 K/mm3 (4.5-11.0) H 11/26/20 06:42 RBC 3.48 M/mm3 (3.65-5.03) L 11/26/20 06:42 Hgb 8.3 gm/dl (11.8-15.2) L 11/26/20 06:42 Hct 26.9 % (35.5-45.6) L 11/26/20 06:42 MCV 77 fl (84-94) L 11/26/20 06:42 MCH 24 pg (28-32) L 11/26/20 06:42 MCHC 31 % (32-34) L 11/26/20 06:42 RDW 19.2 % (13.2-15.2) H 11/26/20 06:42 Plt Count 585 K/mm3 (140-440) H 11/26/20 06:42 Lymph % (Auto) 14.5 % (13.4-35.0) 11/26/20 06:42 [place] % (Auto) 7.9 % (0.0-7.3) H 11/26/20 06:42 Eos % (Auto) 1.4 % (0.0-4.3) 11/26/20 06:42 Baso % (Auto) 0.7 % (0.0-1.8) 11/26/20 06:42 Lymph # (Auto) 2.2 K/mm3 (1.2-5.4) 11/26/20 06:42 [place] # (Auto) 1.2 K/mm3 (0.0-0.8) H 11/26/20 06:42 Eos # (Auto) 0.2 K/mm3 (0.0-0.4) 11/26/20 06:42 Baso # (Auto) 0.1 K/mm3 (0.0-0.1) 11/26/20 06:42 Add Manual Diff Complete 11/22/20 05:26 Total Counted 100 11/22/20 05:26 Seg Neutrophils % 75.5 % (40.0-70.0) H 11/26/20 06:42 Seg Neuts % (Manual) 76.0 % (40.0-70.0) H 11/22/20 05:26 Lymphocytes % (Manual) 13.0 % (13.4-35.0) L 11/22/20 05:26 Monocytes % (Manual) 7.0 % (0.0-7.3) 11/22/20 05:26 Eosinophils % (Manual) 2.0 % (0.0-4.3) 11/22/20 05:26 Metamyelocytes % 1.0 % 11/22/20 05:26 Myelocytes % 1.0 % 11/22/20 05:26 Nucleated RBC % Not Reportable 11/22/20 05:26 Seg Neutrophils # 11.5 K/mm3 (1.8-7.7) H 11/26/20 06:42 Seg Neutrophils # Man 16.0 K/mm3 (1.8-7.7) H 11/22/20 05:26 Band Neutrophils # 0.0 K/mm3 11/22/20 05:26 Lymphocytes # (Manual) 2.7 K/mm3 (1.2-5.4) 11/22/20 05:26 Abs React Lymphs (Man) 0.0 K/mm3 11/22/20 05:26 Monocytes # (Manual) 1.5 K/mm3 (0.0-0.8) H 11/22/20 05:26 Eosinophils # (Manual) 0.4 K/mm3 (0.0-0.4) 11/22/20 05:26 Basophils # (Manual) 0.0 K/mm3 (0.0-0.1) 11/22/20 05:26 Metamyelocytes # 0.2 K/mm3 11/22/20 05:26 Myelocytes # 0.2 K/mm3 11/22/20 05:26 Promyelocytes # 0.0 K/mm3 11/22/20 05:26 Blast Cells # 0.0 K/mm3 11/22/20 05:26 WBC Morphology Not Reportable 11/22/20 05:26 Hypersegmented Neuts Not Reportable 11/22/20 05:26 Hyposegmented Neuts Not Reportable 11/22/20 05:26 Hypogranular Neuts Not Reportable 11/22/20 05:26 Smudge Cells Not Reportable 11/22/20 05:26 Toxic Granulation Not Reportable 11/22/20 05:26 Toxic Vacuolation Not Reportable 11/22/20 05:26 Dohle Bodies Not Reportable 11/22/20 05:26 Pelger-Huet Anomaly Not Reportable 11/22/20 05:26 Shayla Rods Not Reportable 11/22/20 05:26 Platelet Estimate Consistent w auto 11/22/20 05:26 Clumped Platelets Not Reportable 11/22/20 05:26 Plt Clumps, EDTA Not Reportable 11/22/20 05:26 Large Platelets Not Reportable 11/22/20 05:26 Giant Platelets Not Reportable 11/22/20 05:26 Platelet Satelliting Not Reportable 11/22/20 05:26 Plt Morphology Comment Not Reportable 11/22/20 05:26 RBC Morphology Not Reportable 11/22/20 05:26 Dimorphic RBCs Not Reportable 11/22/20 05:26 Polychromasia Not Reportable 11/22/20 05:26 Hypochromasia 1+ 11/22/20 05:26 Poikilocytosis Not Reportable 11/22/20 05:26 Anisocytosis Not Reportable 11/22/20 05:26 Microcytosis Not Reportable 11/22/20 05:26 Macrocytosis Not Reportable 11/22/20 05:26 Spherocytes Not Reportable 11/22/20 05:26 Pappenheimer Bodies Not Reportable 11/22/20 05:26 Sickle Cells Not Reportable 11/22/20 05:26 Target Cells Rare 11/22/20 05:26 Tear Drop Cells Not Reportable 11/22/20 05:26 Ovalocytes Not Reportable 11/22/20 05:26 Helmet Cells Not Reportable 11/22/20 05:26 Brock-Lannon Bodies Not Reportable 11/22/20 05:26 Julian Rings Not Reportable 11/22/20 05:26 Roscoe Cells Not Reportable 11/22/20 05:26 Bite Cells Not Reportable 11/22/20 05:26 Crenated Cell Not Reportable 11/22/20 05:26 Elliptocytes Not Reportable 11/22/20 05:26 Acanthocytes (Spur) Not Reportable 11/22/20 05:26 Rouleaux Not Reportable 11/22/20 05:26 Hemoglobin C Crystals Not Reportable 11/22/20 05:26 Schistocytes Not Reportable 11/22/20 05:26 Malaria parasites Not Reportable 11/22/20 05:26 Cristhian Bodies Not Reportable 11/22/20 05:26 Hem Pathologist Commnt No 11/22/20 05:26 PT 15.1 Sec. (12.2-14.9) H 11/16/20 10:15 INR 1.19 (0.87-1.13) H 11/16/20 10:15 APTT 37.0 Sec. (24.2-36.6) H 11/16/20 10:15 VBG pH 7.332 (7.320-7.420) 11/16/20 10:15 Sodium 135 mmol/L (137-145) L 12/01/20 07:10 Potassium 4.7 mmol/L (3.6-5.0) 12/01/20 07:10 Chloride 105.9 mmol/L (98-107) 12/01/20 07:10 Carbon Dioxide 20 mmol/L (22-30) L 12/01/20 07:10 Anion Gap 14 mmol/L 12/01/20 07:10 BUN 29 mg/dL (9-20) H 12/01/20 07:10 Creatinine 3.9 mg/dL (0.8-1.3) H 12/01/20 07:10 Estimated GFR 20 ml/min 12/01/20 07:10 BUN/Creatinine Ratio 7 % 12/01/20 07:10 Glucose 153 mg/dL (75-100) H 12/01/20 07:10 POC Glucose 172 mg/dL (70-105) H 12/02/20 21:33 Lactic Acid 1.00 mmol/L (0.7-2.0) 11/17/20 05:10 Calcium 8.8 mg/dL (8.4-10.2) 12/01/20 07:10 Phosphorus 4.60 mg/dL (2.5-4.5) H 11/29/20 06:19 Magnesium 1.70 mg/dL (1.7-2.3) 11/29/20 06:19 Total Bilirubin 0.30 mg/dL (0.1-1.2) 11/26/20 06:42 Direct Bilirubin 0.5 mg/dL (0-0.2) H 11/16/20 10:15 Indirect Bilirubin 0.2 mg/dL 11/16/20 10:15 AST 28 units/L (5-40) 11/26/20 06:42 ALT 24 units/L (7-56) 11/26/20 06:42 Alkaline Phosphatase 215 units/L (35-129) H 11/26/20 06:42 Total Creatine Kinase 138 units/L (55-170) 11/16/20 10:15 C-Reactive Protein 6.10 mg/dL (0.00-1.30) H 11/29/20 06:19 Total Protein 7.5 g/dL (6.3-8.2) 11/26/20 06:42 Albumin 2.7 g/dL (3.9-5) L 11/26/20 06:42 Albumin/Globulin Ratio 0.6 % 11/26/20 06:42 Vancomycin Trough 9.8 ug/mL (5.0-20.0) 11/18/20 10:10 Random Vancomycin 6.1 ug/mL (0-40.0) 11/21/20 04:45 Elder/IV: Voiding Method Urinal Active Medications - Current Medications Current Medications: Generic Name Dose Route Start Last Admin Trade Name Freq PRN Reason Stop Dose Admin Acetaminophen 650 mg 11/16/20 12:30 11/20/20 12:14 Acetaminophen 325 Mg Tab PO 650 mg Q6H PRN Administration Pain, Mild (1-3) Hydrocodone Bitart/Acetaminophen 1 each 11/16/20 12:23 12/02/20 13:55 Hydrocodone/Acetaminophen 5-325 Mg Tab PO 1 each Q6HR PRN Administration PAIN Albuterol 2.5 mg 11/16/20 12:30 Albuterol 2.5 Mg/3 Ml Nebu IH Q4HRT PRN Shortness Of Breath Aspirin 81 mg 11/28/20 10:00 12/03/20 09:14 Aspirin Ec 81 Mg Tab PO 81 mg QDAY BARRY Administration Benzonatate 100 mg 11/16/20 14:00 12/03/20 06:34 Benzonatate 100 Mg Cap PO 100 mg Q8HR BARRY Administration Clopidogrel Bisulfate 75 mg 11/28/20 10:00 12/03/20 09:14 Clopidogrel 75 Mg Tab PO 75 mg QDAY BARRY Administration Dextrose 50 ml 11/16/20 12:30 Dextrose 50% In Water (25gm) 50 Ml Syringe IV Q30MIN PRN Hypoglycemia Protocol Famotidine 20 mg 11/19/20 10:00 12/03/20 09:14 Famotidine 20 Mg Tab PO 20 mg DAILY BARRY Administration Gabapentin 300 mg 11/16/20 14:00 12/03/20 06:34 Gabapentin 300 Mg Cap PO 300 mg Q8HR BARRY Administration Heparin Sodium (Porcine) 5,000 unit 11/16/20 14:00 12/03/20 06:34 Heparin 5,000 Unit/1 Ml Vial SUB-Q 5,000 unit Q8HR BARRY Administration Hydralazine HCl 100 mg 11/16/20 14:00 12/03/20 06:34 Hydralazine 100 Mg Tab PO 100 mg Q8HR BARRY Administration Hydralazine HCl 10 mg 11/22/20 12:57 12/03/20 09:13 Hydralazine 20 Mg/1 Ml Inj IV 10 mg Q4HR PRN Administration Blood Pressure Hydromorphone HCl 1 mg 11/27/20 12:33 12/03/20 10:56 Hydromorphone 1 Mg/1 Ml Inj IV 1 mg Q2H PRN Administration Pain , Severe (7-10) Sodium Chloride 250 mls @ 250 mls/hr 11/17/20 10:00 11/30/20 22:00 Nacl 0.9% 250ml IV 250 mls/hr Q12HR BARRY Administration Cefepime HCl 2 gm in 100 mls @ 200 mls/hr 11/20/20 15:00 12/02/20 13:59 Cefepime/Ns 2 Gm/100 Ml IV 12/18/20 15:29 200 mls/hr Q24H BARRY Administration Protocol Sodium Chloride 1,000 mls @ 75 mls/hr 11/26/20 13:30 12/01/20 15:18 Nacl 0.9% 1000 Ml IV 75 mls/hr DIRECT BARRY Administration Insulin Human Isoph/Insulin Regular 37 unit 11/18/20 17:00 12/03/20 09:14 Insulin Nph/Regular 70/30 Inj SUB-Q 37 unit BIDDIAB BARRY Administration Insulin Human Lispro 0 unit 11/17/20 18:00 12/03/20 06:37 Insulin Lispro 100 Unit/Ml SUB-Q Not Given Q4HR BARRY Protocol Linezolid 600 mg 11/20/20 15:00 12/03/20 09:14 Linezolid 600 Mg Tab PO 12/18/20 22:01 600 mg Q12HR BARRY Administration Protocol Metaxalone 800 mg 11/26/20 10:00 11/26/20 13:41 Metaxalone 800 Mg Tab PO 800 mg Q12H PRN Administration Muscle Spasm Metoprolol Tartrate 25 mg 11/16/20 22:00 12/03/20 09:14 Metoprolol Tartrate 25 Mg Tab PO 25 mg BID BARRY Administration Ondansetron HCl 4 mg 11/16/20 12:30 11/28/20 22:07 Ondansetron 4 Mg/2 Ml Inj IV 4 mg Q8H PRN Administration Nausea And Vomiting Pantoprazole Sodium 40 mg 11/28/20 07:30 12/03/20 09:14 Pantoprazole 40 Mg Tab PO 40 mg QDAC BARRY Administration Pentoxifylline 400 mg 12/01/20 16:00 12/03/20 09:13 Pentoxifylline Er 400 Mg Tab PO 400 mg DAILY BARRY Administration Pravastatin Sodium 20 mg 11/16/20 22:00 12/02/20 22:43 Pravastatin 20 Mg Tab PO 20 mg QHS BARRY Administration Sodium Chloride 10 ml 11/16/20 22:00 12/03/20 09:14 Sodium Chloride 0.9% 10 Ml Flush Syringe IV 10 ml BID BARRY Administration Sodium Chloride 10 ml 11/16/20 12:07 Sodium Chloride 0.9% 10 Ml Flush Syringe IV PRN PRN LINE FLUSH Nutrition/Malnutrition Assess - Dietary Evaluation Nutrition/Malnutrition Findings: Nutrition Notes Start: 11/23/20 12:36 Freq: Status: Active Protocol: Document 11/30/20 12:53 AT (Rec: 11/30/20 13:03 AT [id number]) Co-Sign 11/30/20 12:53 Nutrition Notes Initial or Follow up Reassessment Current Diagnosis Acute Kidney Injury,CKD(stage I-IV),Diabetes,Sepsis, Hypertension,Heart Failure, Hyperlipidemia Other Pertinent Diagnosis s/p amputation 2 toes on R foot, R foot osteomyelitis, MRSA, PVD Current Diet Cardiac/Consistent CHO Labs/Tests POC BG 192 Pertinent Medications Reviewed Height 6 ft 3 in Weight 130 kg [place] Body Weight (kg) 89.09 BMI 35.8 Weight Status Obese Subjective/Other Information Follow up for stable intakes and ONS tolerance. Observed pt 's tray and noticed pt had eaten 50% of meal and ONS were pilling up in room. Pt states that he does not like the ONS . Food preferences were recorded. Discussed the addition of Yaya with pt to support wound healing. Percent of energy/protein needs met: 54%/49% Burn Absent Trauma Absent GI Symptoms None Current % PO Fair (50-74%) Minimum of two criteria No physical signs of malnutrition #2 Nutrition Diagnosis Increased nutrient needs ( specify in comment below) Diagnosis Progress(for reassessment Continues documentation) Is patient on ventilator? No Is Patient Ambulatory and/or Out of Bed No REE-([place]-St. Jeor-confined to bed) 2721.612 Kcal/Kg value to use for calculation 14 Approximate Energy Requirements Using 1820 kcal/Kg Calculation Used for Recommendations Kcal/kg Additional Notes PRO needs: 88-99 g (0.8-0.9 g/ kg AdBW) Fluid needs: 1 mL/kcal Nutrition Intervention Change Diet Order: Continue current Add Supplement/Snack (indicate name/kcal Yaya BID /protein ) Provides kCal: 190 Provides Protein (gm) 5 Goal #1 Wound healing Goal #2 Meet at least 75% of estimated energy and protein needs Anticipated Discharge Needs: Cardiac/Consistent CHO Follow-Up By: 12/04/20 Additional Comments F/U for Yaya administration, stable intakes
--- NOTE | 2020-12-03 12:28 | Discharge Summary ---
Providers - Providers Date of Admission: 11/16/20 12:07 Date of discharge: 12/03/20 Attending physician: GIGI FERRARO MD 11/16/20 09:50 Consult to Physician [CONS] Urgent Comment: Consulting Provider: FLEX HERRERA Physician Instructions: Reason For Exam: infected wound 11/16/20 12:21 Consult to Physician [CONS] Routine Comment: Consulting Provider: HAKEEM BANUELOS Physician Instructions: Reason For Exam: nelson/ckd 11/16/20 12:39 Consult to Wound/ET Nurse [CONS] Urgent Reason For Exam: wound eval 11/16/20 12:43 Consult to Physician [CONS] Urgent Comment: Consulting Provider: JOAQUIN GAMBLE Physician Instructions: Reason For Exam: Right foot wound with osteomyelitis 11/20/20 12:38 Consult to Physician [CONS] Routine Comment: Consulting Provider: ANUSHA MATHEW Physician Instructions: Reason For Exam: Osteo toes/s/p TMA/fever/choice, duration of Abx 11/23/20 16:13 Consult to Case Management [CONS] Routine Services Needed at Discharge: Other Notified:: cm notified Comment:: IV abx Additional Physician Instructions: [facility] O: [phone] F: [phone] OUTPATIENT PARENTERAL ANTIBIOTIC THERAPY (OPAT) ORDERS Diagnoses: osteomyelitis, bacteremia Antimicrobial administration: IV Cefepime 2 gm daily + IV daptomycin 750 mg every 48 hours x 4 weeks ending 12/18/2020. - Remove PICC/mid line after last dose. Lines: Maintain IV access with weekly dressing changes and locks per protocol. Lab monitoring: - CBC with differential, Creatinine, ALT, AST, CK, ESR, CRP once a week every Thursday while on IV antibiotics. - Please fax results to [phone] and call [phone] for critical lab results. MD [facility] 11/23/20 16:14 Consult to PICC Line RN [CONS] Routine Reason For Exam: iv abx Type Line:: Midline 11/26/20 18:25 Consult to Physician [CONS] Routine Comment: Consulting Provider: JO CABRERA Physician Instructions: Reason For Exam: Back pain /L4 compression fract age-indeterminate 12/01/20 16:02 Consult to Case Management [CONS] Routine Services Needed at Discharge: Other Comment:: make appoint with pt for Dr. Gamble in 2 weeks @ [phone] Primary care physician: TECHNICAL SALES DIRECTOR Hospitalization Reason for admission: Sepsis, osteomyelitis of the right foot, L4 compression fracture Condition: Stable Procedures: TMA of third and fourth toe, with wound VAC placement Hospital course: --Back pain: L4 compression fracture age-indeterminate Current Visit: Yes Status: Acute Plan to address problem: X-ray lumbosacral spine; mild L4 compression fracture age-indeterminate MRI lumbar spine, to rule out osteomyelitis Pain management, PT OT, orthopedic consult --Acute osteomyelitis of right foot toes, Current Visit: Yes Status: Acute Plan to address problem: s/p partial TMA of the right foot involving the third fourth and fifth toes. Continue postop and wound care, wound VAC per surgery Physical therapy occupational therapy when patient is ready --Peripheral vascular disease Current Visit: Yes Status: Acute Plan to address problem: s/p revascularization and successful samaritan of three-vessel runoff to the right foot per vascular/IR Started aspirin and Plavix --Febrile illness, POA; resolved Current Visit: Yes Status: Acute Plan to address problem: Afebrile last 24 hours, Follow cultures ID evaluated the patient, adjusted the antibiotics --Sepsis/due to osteomyelitis foot/toes Current Visit: Yes Status: Acute Plan to address problem: Status post TMA second and third right metatarsal on IV antibiotics cefepime, Flagyl and linezolid ID DC'd Flagyl advised to continue cefepime and linezolid while in hospital At discharge IV cefepime plus daptomycin for 4 weeks ending 12/18/2020 Case management to assist with home health, and home antibiotics Patient has poor understanding of the seriousness of osteomyelitis and long-term antibiotics Overall poor prognosis given his non compliance and lack of insight with regards to the disease process Strongly advised to comply with medications. --Right hip and back pain; Current Visit: Yes Status: Acute Plan to address problem: Pain medications,right hip findings reviewed No acute abnormality, patient will follow with surgeon/orthopedic L4 mild compression fracture age indeterminate, Ortho consult. --Acute on CKD progressing to stage IV Current Visit: Yes Status: Acute Plan to address problem: Due to vasomotor nephropathy avoid nephrotoxins, medications are renally dosed --h/o MRSA cellulitis Current Visit: No Status: Acute Plan to address problem: CBC, CMP, blood culture, wound culture, IV antibiotic therapy, supportive care. Continue linezolid --Metabolic acidosis Current Visit: No Status: Acute Plan to address problem: Secondary to acute on chronic kidney disease Nephrology following --Diabetes mellitus with hyperglycemia Current Visit: No Status: Chronic Plan to address problem: Accu-Chek sliding scale coverage ADA diet Insulin as needed -- HLD (hyperlipidemia) Current Visit: No Status: Chronic Plan to address problem: Lipid panel, statin therapy, supportive care. Low-cholesterol diet, --hypertension Current Visit: No Status: Chronic Plan to address problem: continue antihypertensives Adjust blood pressure medication -- DVT prophylaxis Current Visit: Yes Status: Acute Plan to address problem: Heparin subcu Continue wound care. PT OT when patient is able to tolerate DC planning per case management ID recommended long-term antibiotics for total of 4 weeks Patient has midline placed Plan of care reviewed with the patient and his nurse Will follow MRI findings, follow Ortho evaluation and recommendations Disposition per surgery. Patient refuses LS MRI Has midkine IV abx arranged Able to walk Maybe discharged tomorrow after talking with facilities engineering manager Subjective Date of service: 11/30/20 Principal diagnosis: Right foot PVD Interval history: Brief history and hospital course; patient was admitted with acute osteomyelitis of the right foot third and fourth toes Surgeon has evaluated, patient underwent TMA of the both the toes, with wound VAC, ID evaluated the patient Recommend long-term antibiotics for total 4 weeks, patient received midline, disposition per surgery. Patient is fused lumbar spine MRI to rule out osteomyelitis. 11/20/2020; patient is febrile T-max 102 F, patient is on empiric antibiotics, del valle culture sent, ID consulted For choice and duration of antibiotics., Will request PT and patient is able to tolerate physical therapy per surgeon 11/21/2020; patient feels slightly better continues to have severe pain, asking for more pain medications Vital signs reviewed, wound VAC applied to the right foot surgical wound. 11/22/2020; patient complains of some right hip pain and low back pain No history of fall, patient gives history of back surgery Will check x-ray hip and back 11/23/2020; hip x-ray no acute abnormality, lumbosacral spine x-ray all changes Patient need to follow-up with orthopedic surgeon upon discharge Continue antibiotics, wound care, follow surgery recommendations 11/24/2020; patient is sleeping, nurse reports that patient complains of pain On pain medications, antibiotics, surgery and ID following ID recommend long-term anticoagulation total for 4 weeks ending on 12/18/2020 11/25/2020; patient is on long-term antibiotics recommended by ID for total 4 weeks ending on 12/18/2020 Continue wound care, wound VAC in place, disposition per surgery DC planning per case management Patient refused midline placement for long-term antibiotics will check with surgeon Dr. Herrera regarding DC planning 11/26/2020; patient is reevaluated by IR/vascular for possible angiogram tomorrow Patient also complains of vague back pain, lumbosacral spine mild L4 compression fracture age-indeterminate We will consult orthopedic 11/27/2020; patient had revascularization procedure per vascular in/IR started on aspirin and Plavix Also requested MRI lumbar spine to rule out osteomyelitis 11/28/2020; patient refused MRI lumbar spine and also some medications Awaiting Ortho evaluation recommendations, continue current management 11/29/2020; patient refused MRI of the lumbar spine, patient is receiving long- term antibiotics Disposition per surgery 11/30/2020; continue with IV antibiotics, patient refused MRI of the lumbar spine. Disposition is per surgery recommendations. 12/01/2020; patient will be discharged home once case management arranged HH for IV antibiotics. 12/02/2020; patient will be here until tomorrow, home IV antibiotics will not be ready until tomorrow. 12/03/2020; patient will be discharged once home IV antibiotics are arranged. Outpatient home IV antibiotics were arranged, patient has wound VAC. Patient said he had IV antibiotics before and has wound VAC and follow-up at home. Patient was hemodynamically stable and discharged. Disposition: DC-01 TO HOME OR SELFCARE Time spent for discharge: 45 minutes - Discharge Diagnoses (1) Osteomyelitis of foot, right, acute Status: Acute (2) Peripheral vascular disease Status: Acute (3) Sepsis Status: Acute (4) Abscess of right foot Status: Acute (5) Type 2 diabetes mellitus with diabetic chronic kidney disease Status: Acute Core Measure Documentation - Palliative Care Palliative Care/ Comfort Measures: Not Applicable - Core Measures Any of the following diagnoses?: none Exam - Physical Exam Narrative exam: Not in cardiopulmonary distress. The patient appeared well nourished and normally developed. Vital signs as documented. Head exam is unremarkable. No scleral icterus . Neck is without jugular venous distension, thyromegaly, or carotid bruits. Lungs are clear to auscultation. Cardiac exam reveals regular rate and Rhythm. Abdominal exam reveals normal bowel sounds, nontender, no organomegaly. 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 No focal weakness. - Constitutional Vitals: Temp Pulse Resp BP Pulse Ox 98.5 F 80 18 121/93 99 12/03/20 11:45 12/03/20 11:45 12/03/20 11:45 12/03/20 11:45 12/03/20 11:45 Plan Activity: advance as tolerated Weight Bearing Status: Full Weight Bearing Diet: diabetic Follow up with: JOAQUIN GAMBLE MD [Staff Physician] - 14 Days PRIMARY CAREMD [Primary Care Provider] - 3-5 Days ONOFRE GILBERT MD [Staff Physician] - 14 Days Prescriptions: Aspirin EC [Halfprin EC] 81 mg PO QDAY #30 tablet HYDROcodone/APAP 5-325 [[place] 5-325 mg TAB] 1 each PO Q6HR PRN #14 tablet PRN Reason: Pain Clopidogrel [Plavix] 75 mg PO QDAY #30 tablet Pantoprazole [Protonix TAB] 40 mg PO QDAC #30 tablet Metaxalone [Skelaxin] 800 mg PO Q12H PRN #30 PRN Reason: Muscle Spasm Pentoxifylline [TRENtal] 400 mg PO DAILY #30 tablet
--- NOTE | 2020-12-03 14:00 | Progress Note ---
Assessment and Plan Cultures: 11/16/2020 blood culture: Group B streptococcus 11/16/2020 urine culture: No growth 11/20/2020 blood culture: no growth thus far A/P: 45 year old male with history of uncontrolled diabetes mellitus, hyperlipidemia, hypertension, chronic kidney disease, obesity, peripheral vascular disease, with multiple infectious complications especially his right foot in the recent past, now readmitted with: #Sepsis secondary to right foot infection #Back pain: Patient refused MRI #Group B strep bacteremia: Secondary to right foot infection #Worsening right diabetic foot infection with osteomyelitis: 3rd, 4th and 5th toe TMA on 10/10/2020, now again TMA of the right second toe amputation of the distal half of the third metatarsal shaft on 11/19/2020. Previously has grown MRSA and Pseudomonas from the R foot and was treated with IV abx. #Uncontrolled diabetes mellitus #Advanced CKD: has been refusing hemodialysis. Nephrology following. #Peripheral vascular disease: s/p angiogram Recs: -continue renally dosed IV Cefepime and PO Linezolid while inpatient -OPAT orders placed for IV Cefepime + Daptomycin x 4 weeks ending 12/18/2020 via home health. Approved by insurance with [facility] -overall poor prognosis given his non compliance and lack of insight with regards to the disease process -Patient refused MRI. Already planning long-term course of antibiotics, as long as no neurological defects okay to proceed without MRI. MD [facility] ([facility]) O: [phone] F: [phone] Subjective Date of service: 12/03/20 Principal diagnosis: Right foot PVD Interval history: Afebrile, no changes. Objective - Exam Narrative Exam: Physical Exam: Constitutional: Awake. No acute distress Head, Ears, Nose: Normocephalic, atraumatic. Eyes: Conjunctivae/corneas clear. No icterus. No ptosis. Neck: Supple, no meningeal signs Cardiovascular: S1, S2 normal. Respiratory: Good air entry, clear to auscultation bilaterally GI: Soft, non-tender; bowel sounds normal. No peritoneal signs Musculoskeletal: R foot VAC + Skin: No rash or abscess Hem/Lymphatic: No palpable cervical or supraclavicular nodes. No lymphangitis Psych: flat affect Neurological: awake, no gross abnormality - Constitutional Vitals: Vital Signs Temp Pulse Resp BP Pulse Ox 98.5 F 80 18 121/93 99 12/03/20 11:45 12/03/20 11:45 12/03/20 11:45 12/03/20 11:45 12/03/20 11:45 Temperature -Last 24 Hours Temperature 98.5 F Temperature 98.4 F Temperature 98.5 F Temperature 98.3 F Temperature 98.7 F - Labs CBC & Chem 7: 11/26/20 06:42 12/01/20 07:10 Labs: Abnormal lab results 12/02/20 12/02/20 12/03/20 Range/Units 15:39 21:33 05:49 POC Glucose 148 H 172 H 188 H (70-105) mg/dL 12/03/20 12/03/20 12/03/20 Range/Units 08:05 11:44 11:49 POC Glucose 178 H 68 L 164 H (70-105) mg/dL
[2020-12-03] MEDS: CEFEPIME/NS 2 GM/100 ML 2 GM/100 ML BAG IV SCH (15:12)
--- NOTE | 2020-12-03 17:27 | Progress Note ---
Assessment and Plan - Patient Problems (1) Acute kidney injury superimposed on CKD Current Visit: Yes Status: Acute Plan to address problem: Acute kidney injury superimposed on stage IV chronic kidney disease. stable renal function, no acute indication for renal replacement therapy at present. Continue to monitor electrolytes and renal function. (2) Osteomyelitis of foot, right, acute Current Visit: Yes Status: Acute Plan to address problem: Continue antibiotics appropriately adjusted to the degree of renal function. Infectious disease arranging for outpatient antibiotics. (3) Hyperosmolar non-ketotic state in patient with type 2 diabetes mellitus Current Visit: No Status: Acute Plan to address problem: Diabetes management as per primary attending (4) Peripheral vascular disease Current Visit: Yes Status: Chronic Plan to address problem: Status post revascularization to the right foot (5) Hypertensive chronic kidney disease with stage 1 through stage 4 chronic kidney disease, or unspecified chronic kidney disease Current Visit: No Status: Acute Plan to address problem: Follow-up blood pressure on current medications. (6) Anemia in chronic illness Current Visit: Yes Status: Chronic Plan to address problem: Continue supplements and erythropoiesis stimulating agent as indicated. Follow- up hemoglobin Subjective Date of service: 12/03/20 Principal diagnosis: Right foot PVD Interval history: Pt awake, alert, in no acute distress Objective - Vital Signs Vital signs: Vital Signs - 12hr 12/03/20 12/03/20 12/03/20 08:05 11:26 11:45 Temperature 98.4 F 98.5 F Pulse Rate 94 H 80 Respiratory 18 18 18 Rate Blood Pressure 181/109 121/93 O2 Sat by Pulse 99 99 Oximetry - General Appearance General appearance: well-developed, well-nourished, appears stated age EENT: ATNC, PERRL, mucous membranes moist Neck: no JVD Respiratory: Present: Clear to Ascultation Cardiology: regular, S1S2 Gastrointestinal: normoactive bowel sounds Integumentary: no rash, other (wound vac in place at [facility]) Neurologic: no focal deficit, alert and oriented x3, strength 5/5, CN 3-12 intact Psychiatric: mood/affect appropriate, cooperative - Lab 11/26/20 06:42 12/01/20 07:10 Most recent lab results Calcium 8.8 mg/dL (8.4-10.2) 12/01/20 07:10 Phosphorus 4.60 mg/dL (2.5-4.5) H 02/18/21 06:19 Magnesium 1.70 mg/dL (1.7-2.3) 11/29/20 06:19 Medications & Allergies - Medications Allergies/Adverse Reactions: Allergies oxycodone [From Percocet] Adverse Reaction (Verified 09/24/20 18:07) Vomiting Home Medications: Home Medications Medication Instructions Recorded Confirmed Last Taken Type Pravastatin [Pravachol] 20 mg PO QHS #30 tablet 04/20/18 11/16/20 Unknown Rx Amlodipine Besylate [Norvasc] 10 mg PO DAILY 12/06/18 11/16/20 Unknown History Gabapentin 300 mg PO Q8HR 12/06/18 11/16/20 Unknown History Albuterol Mdi (or & Nicu Only) 2 puff IH QID PRN #1 inhalation 08/24/20 11/16/20 Unknown Rx [ProAir HFA Inhaler] Benzonatate [Tessalon Perles] 100 mg PO Q8HR #10 capsule 08/24/20 11/16/20 Unknown Rx DAPTOmycin 800 mg IV Q24H vial 09/28/20 11/16/20 Unknown Rx Insulin NPH/Regular [NovoLIN 70/30] 35 unit SUB-Q BIDDIAB #12 ml 09/28/2011/16 Unknown Rx Metoprolol [Lopressor TAB] 25 mg PO BID #60 tablet 09/28/20 11/16/20 Unknown Rx hydrALAZINE [Apresoline TAB] 100 mg PO Q8HR #90 tab 09/28/20 11/16/20 Unknown Rx Aspirin EC [Halfprin EC] 81 mg PO QDAY #30 tablet 12/03/20 Unknown Rx Clopidogrel [Plavix] 75 mg PO QDAY #30 tablet 12/03/20 Unknown Rx HYDROcodone/APAP 5-325 [[place] 1 each PO Q6HR PRN #14 tablet 12/03/20 Unknown Rx 5-325 mg TAB] Metaxalone [Skelaxin] 800 mg PO Q12H PRN #30 12/03/20 Unknown Rx Pantoprazole [Protonix TAB] 40 mg PO QDAC #30 tablet 12/03/20 Unknown Rx Pentoxifylline [TRENtal] 400 mg PO DAILY #30 tablet 12/03/20 Unknown Rx Active Medications: Generic Name Dose Route Start Last Admin Trade Name Freq PRN Reason Stop Dose Admin Acetaminophen 650 mg 11/16/20 12:30 11/20/20 12:14 Acetaminophen 325 Mg Tab PO 650 mg Q6H PRN Administration Pain, Mild (1-3) Hydrocodone Bitart/Acetaminophen 1 each 11/16/20 12:23 12/02/20 13:55 Hydrocodone/Acetaminophen 5-325 Mg Tab PO 1 each Q6HR PRN Administration PAIN Albuterol 2.5 mg 11/16/20 12:30 Albuterol 2.5 Mg/3 Ml Nebu IH Q4HRT PRN Shortness Of Breath Aspirin 81 mg 11/28/20 10:00 12/03/20 09:14 Aspirin Ec 81 Mg Tab PO 81 mg QDAY BARRY Administration Benzonatate 100 mg 11/16/20 14:00 12/03/20 15:15 Benzonatate 100 Mg Cap PO Not Given Q8HR BARRY Clopidogrel Bisulfate 75 mg 11/28/20 10:00 12/03/20 09:14 Clopidogrel 75 Mg Tab PO 75 mg QDAY BARRY Administration Dextrose 50 ml 11/16/20 12:30 Dextrose 50% In Water (25gm) 50 Ml Syringe IV Q30MIN PRN Hypoglycemia Protocol Famotidine 20 mg 11/19/20 10:00 12/03/20 09:14 Famotidine 20 Mg Tab PO 20 mg DAILY BARRY Administration Gabapentin 300 mg 11/16/20 14:00 12/03/20 13:03 Gabapentin 300 Mg Cap PO 300 mg Q8HR BARRY Administration Heparin Sodium (Porcine) 5,000 unit 11/16/20 14:00 12/03/20 13:06 Heparin 5,000 Unit/1 Ml Vial SUB-Q Not Given Q8HR BARRY Hydralazine HCl 100 mg 11/16/20 14:00 12/03/20 13:03 Hydralazine 100 Mg Tab PO 100 mg Q8HR BARRY Administration Hydralazine HCl 10 mg 11/22/20 12:57 12/03/20 09:13 Hydralazine 20 Mg/1 Ml Inj IV 10 mg Q4HR PRN Administration Blood Pressure Hydromorphone HCl 1 mg 11/27/20 12:33 12/03/20 15:15 Hydromorphone 1 Mg/1 Ml Inj IV 1 mg Q2H PRN Administration Pain , Severe (7-10) Sodium Chloride 250 mls @ 250 mls/hr 11/17/20 10:00 11/30/20 22:00 Nacl 0.9% 250ml IV 250 mls/hr Q12HR BARRY Administration Cefepime HCl 2 gm in 100 mls @ 200 mls/hr 11/20/20 15:00 12/03/20 15:12 Cefepime/Ns 2 Gm/100 Ml IV 12/18/20 15:29 200 mls/hr Q24H BARRY Administration Protocol Sodium Chloride 1,000 mls @ 75 mls/hr 11/26/20 13:30 12/01/20 15:18 Nacl 0.9% 1000 Ml IV 75 mls/hr DIRECT BARRY Administration Insulin Human Isoph/Insulin Regular 37 unit 11/18/20 17:00 12/03/20 17:23 Insulin Nph/Regular 70/30 Inj SUB-Q Not Given BIDDIAB BARRY Insulin Human Lispro 0 unit 11/17/20 18:00 12/03/20 15:10 Insulin Lispro 100 Unit/Ml SUB-Q Not Given Q4HR [facility] Protocol Linezolid 600 mg 11/20/20 15:00 12/03/20 09:14 Linezolid 600 Mg Tab PO 12/18/20 22:01 600 mg Q12HR [facility] Administration Protocol Metaxalone 800 mg 11/26/20 10:00 11/26/20 13:41 Metaxalone 800 Mg Tab PO 800 mg Q12H PRN Administration Muscle Spasm Metoprolol Tartrate 25 mg 11/16/20 22:00 12/03/20 09:14 Metoprolol Tartrate 25 Mg Tab PO 25 mg BID BARRY Administration Ondansetron HCl 4 mg 11/16/20 12:30 11/28/20 22:07 Ondansetron 4 Mg/2 Ml Inj IV 4 mg Q8H PRN Administration Nausea And Vomiting Pantoprazole Sodium 40 mg 11/28/20 07:30 12/03/20 09:14 Pantoprazole 40 Mg Tab PO 40 mg QDAC BARRY Administration Pentoxifylline 400 mg 12/01/20 16:00 12/03/20 09:13 Pentoxifylline Er 400 Mg Tab PO 400 mg DAILY BARRY Administration Pravastatin Sodium 20 mg 11/16/20 22:00 12/02/20 22:43 Pravastatin 20 Mg Tab PO 20 mg QHS BARRY Administration Sodium Chloride 10 ml 11/16/20 22:00 12/03/20 09:14 Sodium Chloride 0.9% 10 Ml Flush Syringe IV 10 ml BID BARRY Administration Sodium Chloride 10 ml 11/16/20 12:07 Sodium Chloride 0.9% 10 Ml Flush Syringe IV PRN PRN LINE FLUSH
[2020-12-03 18:48] VITALS: BP 171/109
== END 2020-12-03 19:20 | disposition home or self-care (01) | DRG 853 ==
LOC: ED 09:08 → 3A 12:07 → 3B-SURG 18:08 → 3A 11-22 12:49 → 3B-SURG 11-22 12:54
PROVIDERS: ADMIT Internal Medicine; ATTEND Internal Medicine
PROC: 0Y6M0ZB Detachment at Right Foot, Partial 2nd Ray, Open Approach (ICD-10-PCS; principal; 2020-11-19)
PROC: 0Y6M0ZC Detachment at Right Foot, Partial 3rd Ray, Open Approach (ICD-10-PCS; 2020-11-19)
PROC: 047P3ZZ Dilation of Right Anterior Tibial Artery, Percutaneous Approach (ICD-10-PCS; 2020-11-27)
PROC: 04CP3ZZ Extirpation of Matter from Right Anterior Tibial Artery, Percutaneous Approach (ICD-10-PCS; 2020-11-27)
DX: A40.1 Sepsis due to streptococcus, group B (principal); N17.0 Acute kidney failure with tubular necrosis; L03.90 Cellulitis, unspecified; I50.32 Chronic diastolic (congestive) heart failure; E87.2 Acidosis; N18.5 Chronic kidney disease, stage 5; I13.2 Hypertensive heart and chronic kidney disease with heart failure and with stage 5 chronic kidney disease, or end stage renal disease; M86.171 Other acute osteomyelitis, right ankle and foot; M48.56XA Collapsed vertebra, not elsewhere classified, lumbar region, initial encounter for fracture; E11.65 Type 2 diabetes mellitus with hyperglycemia; E11.51 Type 2 diabetes mellitus with diabetic peripheral angiopathy without gangrene; F17.210 Nicotine dependence, cigarettes, uncomplicated; D63.8 Anemia in other chronic diseases classified elsewhere; E11.69 Type 2 diabetes mellitus with other specified complication; E78.5 Hyperlipidemia, unspecified; Z60.2 Problems related to living alone; M19.90 Unspecified osteoarthritis, unspecified site; Z87.01 Personal history of pneumonia (recurrent); Z83.3 Family history of diabetes mellitus; Z82.49 Family history of ischemic heart disease and other diseases of the circulatory system; Z79.899 Other long term (current) drug therapy; Z88.5 Allergy status to narcotic agent
CPT/HCPCS: 36415; 37229; 71045; 72080; 75625; 75710; 76937; 80048; 80053; 80076; 80202; 82140; 82550; 82805; 82962; 83735; 84100; 85007; 85025; 85027; 85610; 85730; 86140; 87040; 87086; 88302; 88304; 88305; 88309; 88311; 93005; 94640; 96374; 96375; G0378; A9270-GY; C1724; C1725; C1760; C1769; C1887; C2623; J0295; J0360; J0690; J0692; J1170; J1644; J1815; J2250; J2370; J2405; J2543; J2704; J3010; J3370; J7030; J7040; J7050; Q9967

== ENCOUNTER 2021-07-24 22:55 | Emergency (ER) | payer MEDICARE ==
[2021-07-25 02:20] LABS: Basophils # (Auto) 0.1 K/mm3 (0.0-0.1); Basophils % (Auto) 0.6 % (0.0-1.8); Eosinophils # (Auto) 0.1 K/mm3 (0.0-0.4); Eosinophils % (Auto) 0.3 % (0.0-4.3); Hemoglobin 9.9 gm/dl (11.8-15.2); Lymphocytes # (Auto) 1.7 K/mm3 (1.2-5.4); Lymphocytes % (Auto) 8.8 % (13.4-35.0); Mean Corpuscular HGB Conc 32 % (32-34); Mean Corpuscular Volume 79 fl (84-94); Monocytes # (Auto) 2.3 K/mm3 (0.0-0.8); Monocytes % (Auto) 11.7 % (0.0-7.3); Platelet Count 324 K/mm3 (140-440); Red Blood Count 3.91 M/mm3 (3.65-5.03); Red Cell Distribution Width 14.3 % (13.2-15.2)
[2021-07-25 03:03] LABS: Albumin 2.8 g/dL (3.9-5); Calcium 7.9 mg/dL (8.4-10.2)
[2021-07-25] MEDS ORDERED: HYDROmorphone 1 MG/1 ML INJ IV ONE (04:52)
[2021-07-25] MEDS ORDERED: ONDANSETRON 4 MG/2 ML INJ IV ONE (04:53)
[2021-07-25] MEDS ORDERED: hydrALAZINE 25 MG TAB PO ONE (05:10)
[2021-07-25] MEDS ORDERED: SODIUM CHLORIDE 0.9% 1000 ML 1,000 ML IV ONE (05:12)
[2021-07-25] MEDS ORDERED: INSULIN REGULAR, HUMAN 100 UNITS/1 ML IV ONE (05:12)
[2021-07-25] MEDS ORDERED: cloNIDine 0.2 MG TAB PO STA (05:13)
[2021-07-25] MEDS ORDERED: cloNIDine 0.2 MG TAB PO ONE (05:14)
--- NOTE | 2021-07-25 05:16 | Vascular Lab Report ---
DUPLEX DOPPLER LOWER EXTREMITY VEINS, RIGHT INDICATION / CLINICAL INFORMATION: swelling and pain. TECHNIQUE: Duplex doppler imaging was performed through the veins of the right lower extremity using venous comp ression and other maneuvers. COMPARISON: None available. FINDINGS: RIGHT COMMON FEMORAL VEIN: Negative. RIGHT FEMORAL VEIN: Negative. RIGHT POPLITEAL VEIN: Negative. RIGHT CALF VEINS: Negative. ADDITIONAL FINDINGS: None. IMPRESSION: 1. No sonographic evidence for DVT in the right lower extremity. Signer Name: Chance Reynolds MD Signed: 07/25/2021 5:12 AM Workstation Name: [id number]
--- NOTE | 2021-07-25 06:59 | Emergency Department Report ---
ED General Adult HPI - General Chief complaint: Extremity Injury, Lower Stated complaint: PAIN IN RIGHT LEG Time Seen by Provider: 07/25/21 01:12 Source: patient Mode of arrival: Ambulatory Limitations: No Limitations - History of Present Illness Initial comments: 45-year-old male with elevated BMI History diabetes, hypertension, lower extremity swelling/neuropathy presents emerged department complaining of a couple day history of right calf pain and swelling of what is causes unknown etiology. Pain is dull and throbbing worse with palpation and range of motion he noticed some increased swelling to the right leg. States 2 days prior he sustained a fall to his knees resulting in abrasion to his anterior knee was followed by his but primary care provider who advised him that no medication was needed to keep it clean antibacterial soap and water since that time he has noticed some increased warmth to the leg and some swelling but is significantly worsened over the last 2 days. Has not been taking any antibiotics or utilizing the Augmentin as it was not recommended. Severity scale (0 -10): 4 Improves with: none Worsens with: none Associated Symptoms: denies: chest pain, cough, loss of appetite, malaise, syncope, weakness - Related Data Home Medications Medication Instructions Recorded Confirmed Last Taken Amlodipine Besylate [Norvasc] 10 mg PO DAILY 12/06/18 11/16/20 Unknown Gabapentin 300 mg PO Q8HR 12/06/18 11/16/20 Unknown Previous Rx's Medication Instructions Recorded Last Taken Type Pravastatin [Pravachol] 20 mg PO QHS #30 tablet 04/20/18 Unknown Rx Albuterol Mdi (or & Nicu Only) 2 puff IH QID PRN #1 inhalation 08/24/20 Unknown Rx [ProAir HFA Inhaler] Benzonatate [Tessalon Perles] 100 mg PO Q8HR #10 capsule 08/24/20 Unknown Rx DAPTOmycin 800 mg IV Q24H vial 09/28/20 Unknown Rx Insulin NPH/Regular [NovoLIN 70/30] 35 unit SUB-Q BIDDIAB #12 ml 09/28/20 Unknown Rx Metoprolol [Lopressor TAB] 25 mg PO BID #60 tablet 09/28/20 Unknown Rx hydrALAZINE [Apresoline TAB] 100 mg PO Q8HR #90 tab 09/28/20 Unknown Rx Aspirin EC [Halfprin EC] 81 mg PO QDAY #30 tablet 12/03/20 Unknown Rx Clopidogrel [Plavix] 75 mg PO QDAY #30 tablet 12/03/20 Unknown Rx HYDROcodone/APAP 5-325 [[place] 1 each PO Q6HR PRN #14 tablet 12/03/20 Unknown Rx 5-325 mg TAB] Metaxalone [Skelaxin] 800 mg PO Q12H PRN #30 12/03/20 Unknown Rx Pantoprazole [Protonix TAB] 40 mg PO QDAC #30 tablet 12/03/20 Unknown Rx Pentoxifylline [TRENtal] 400 mg PO DAILY #30 tablet 12/03/20 Unknown Rx Acetaminophen/Codeine [Tylenol 1 tab PO Q6H PRN #10 tab 07/25/21 Unknown Rx /Codeine # 3 tab] Clindamycin [Clindamycin CAP] 300 mg PO Q6H #40 capsule 07/25/21 Unknown Rx Allergies Allergy/AdvReac Type Severity Reaction Status Date / Time No Known Allergies Allergy Verified 07/24/21 23:54 ED Review of Systems ROS: Stated complaint: PAIN IN RIGHT LEG Other details as noted in HPI Comment: All other systems reviewed and negative ED Past Medical Hx - Past Medical History Hx Hypertension: Yes Hx Heart Attack/AMI: No Hx Congestive Heart Failure: Yes Hx Diabetes: Yes Hx Deep Vein Thrombosis: (unknown) Hx Liver Disease: No Hx Renal Disease: Yes (CKD Stage 3) Hx Seizures: No Hx Asthma: No Hx COPD: No Hx HIV: No Additional medical history: Pneumonia in 2016 with two chest tubes - Surgical History Past Surgical History?: No Hx Pacemaker: No Hx Internal Defibrillator: No Additional Surgical History: spinal mennigitis, Chest tubes x 2 with pneumonia 2016 - Social History Smoking Status: Never Smoker - Medications Home Medications: Home Medications Medication Instructions Recorded Confirmed Last Taken Type Pravastatin [Pravachol] 20 mg PO QHS #30 tablet 04/20/18 11/16/20 Unknown Rx Amlodipine Besylate [Norvasc] 10 mg PO DAILY 12/06/18 11/16/20 Unknown History Gabapentin 300 mg PO Q8HR 12/06/18 11/16/20 Unknown History Albuterol Mdi (or & Nicu Only) 2 puff IH QID PRN #1 inhalation 08/24/20 11/16/20 Unknown Rx [ProAir HFA Inhaler] Benzonatate [Tessalon Perles] 100 mg PO Q8HR #10 capsule 08/24/20 11/16/20 Unknown Rx DAPTOmycin 800 mg IV Q24H vial 09/28/20 11/16/20 Unknown Rx Insulin NPH/Regular [NovoLIN 70/30] 35 unit SUB-Q BIDDIAB #12 ml 09/28/20 11/16/20 Unknown Rx Metoprolol [Lopressor TAB] 25 mg PO BID #60 tablet 09/28/20 11/16/20 Unknown Rx hydrALAZINE [Apresoline TAB] 100 mg PO Q8HR #90 tab 09/28/20 11/16/20 Unknown Rx Aspirin EC [Halfprin EC] 81 mg PO QDAY #30 tablet 12/03/20 Unknown Rx Clopidogrel [Plavix] 75 mg PO QDAY #30 tablet 12/03/20 Unknown Rx HYDROcodone/APAP 5-325 [B[place]ster 1 each PO Q6HR PRN #14 tablet 12/03/20 Unknown Rx 5-325 mg TAB] Metaxalone [Skelaxin] 800 mg PO Q12H PRN #30 12/03/20 Unknown Rx Pantoprazole [Protonix TAB] 40 mg PO QDAC #30 tablet 12/03/20 Unknown Rx Pentoxifylline [TRENtal] 400 mg PO DAILY #30 tablet 12/03/20 Unknown Rx Acetaminophen/Codeine [Tylenol 1 tab PO Q6H PRN #10 tab 07/25/21 Unknown Rx /Codeine # 3 tab] Clindamycin [Clindamycin CAP] 300 mg PO Q6H #40 capsule 07/25/21 Unknown Rx ED Physical Exam - General Limitations: No Limitations General appearance: alert, in no apparent distress - Head Head exam: Present: atraumatic, normocephalic - Eye Eye exam: Present: normal appearance - ENT ENT exam: Present: mucous membranes moist - Neck Neck exam: Present: normal inspection - Respiratory Respiratory exam: Present: normal lung sounds bilaterally. Absent: respiratory distress - Cardiovascular Cardiovascular Exam: Present: regular rate, normal rhythm. Absent: systolic murmur, diastolic murmur, rubs, gallop - GI/Abdominal GI/Abdominal exam: Present: soft, normal bowel sounds - Rectal Rectal exam: Present: deferred - Extremities Exam Extremities exam: Present: normal inspection, tenderness (To the right lower extremity with palpation. 2+ pitting edema is noted. Pulses are 1+. 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 Small abrasion to the anterior right knee.), calf tenderness - Back Exam Back exam: Present: normal inspection, full ROM, CVA tenderness (R), CVA tenderness (L) - Neurological Exam Neurological exam: Present: alert, oriented X3, CN II-XII intact, normal gait - Psychiatric Psychiatric exam: Present: normal affect, normal mood. Absent: flat affect, manic - Skin Skin exam: Present: warm, dry, intact, normal color. Absent: rash, cyanosis, erythema ED Course Vital Signs 07/24/21 07/25/21 07/25/21 22:56 01:42 01:45 Temperature 98.8 F Pulse Rate 103 H 99 H 99 H Respiratory 18 25 H 16 Rate Blood Pressure 172/113 Blood Pressure 156/92 [Left] O2 Sat by Pulse 97 100 99 Oximetry 07/25/21 07/25/21 07/25/21 02:01 05:21 06:11 Temperature Pulse Rate 96 H 108 H 108 H Respiratory 13 Rate Blood Pressure 168/103 181/103 186/107 Blood Pressure [Left] O2 Sat by Pulse 100 Oximetry ED Medical Decision Making - Lab Data Result diagrams: 07/25/21 02:06 07/25/21 02:06 - Medical Decision Making 45-year-old [place] male with past medical history of hypertension diabetes found to have hyperglycemia Problem 1 hypoglycemia This patient is 45-year-old elevated BMI male, presenting with apparent acute hyperglycemia. Differential diagnosis includes new onset diabetes, steroid or other medication use, secondary ingestion, reactive hyper glycemia. Consideration considered DKA versus hyperosmolar nonketotic state, sepsis is possible etiology of patient's current presentation. However given the current history and physical including current glucose level the current presentation is consistent with acute asymptomatic hyperglycemia. Plan to treat supportively no indication for further work-up at this time. Plan supportive care, serial pulmonary care glucose monitoring, labs, serial reassessment Problem 2 hypertension Presents to the emergency department complaining of high blood pressure. Patient is otherwise asymptomatic without confusion, chest pain, hematuria, or SOB. BP today is 160/90 after treatment Patient is not currently on medication Doubt CV, AMI, heart failure, renal infarction or failure or other end organ damage. Disposition:Discussed with patient their elevated blood pressure and need for close outpatient management of their hypertension. Will provide a prescription f or the patients previous antihypertensive medication and arrange for the patient to follow up in a primary care clinic Disposition: Discussed with patient their elevated blood pressure and need for close outpatient management of their hypertension. Will provide a prescription for amlodipine 5mg PO daily and arrange for the patient to follow up in a primary care clinic Problem 2 cellulitis Presentation consistent with right lower extremity cellulitis. Given history, exam, work-up I have low suspicion for necrotizing fasciitis, abscess, osteomyelitis, DVT or other emergent problem as cause for this presentation. The patient is nontoxic appearing and vital signs are stable. There is a re asonably low risk for treatment failure based on history. Strict return precautions were discussed with patient with full understanding. Advised patient to follow-up promptly with primary care care doctor within the next 48 hours. Critical care attestation.: If time is entered above; I have spent that time in minutes in the direct care of this critically ill patient, excluding procedure time. ED Disposition Clinical Impression: Hyperglycemia, Hypertension, Cellulitis of right lower limb Disposition: 01 HOME / SELF CARE / HOMELESS Is pt being admited?: No Does the pt Need Aspirin: No Condition: Stable Instructions: Hypertension (ED), Preventing Type 2 Diabetes Mellitus, Cellulitis, Adult, Hyperglycemia, Preventing Hypertension, Managing Your Hypertension Prescriptions: Clindamycin [Clindamycin CAP] 300 mg PO Q6H #40 capsule Acetaminophen/Codeine [Tylenol /Codeine # 3 tab] 1 tab PO Q6H PRN #10 tab PRN Reason: leg pain Referrals: [facility] [Provider Group] - 3-5 Days
[2021-07-25 07:41] VITALS: BP 157/91
== END 2021-07-25 07:46 | disposition home or self-care (01) ==
LOC: ED 22:55
DX: L03.115 Cellulitis of right lower limb (principal); E11.65 Type 2 diabetes mellitus with hyperglycemia; I13.0 Hypertensive heart and chronic kidney disease with heart failure and stage 1 through stage 4 chronic kidney disease, or unspecified chronic kidney disease; E11.22 Type 2 diabetes mellitus with diabetic chronic kidney disease; N18.30 Chronic kidney disease, stage 3 unspecified; Z98.890 Other specified postprocedural states
CPT/HCPCS: 36415; 80053; 82962; 85025; 93971; 96361; 96374; 96375; 99284; J1170; J2405; J7030; J1815